=== PATIENT | male | born 1955 | race Caucasian/White ===

== ENCOUNTER → 2017-02-10 | Emergency (ER) | payer BC, SELFPAY | PROVIDERS: Emergency Provider Emergency Medicine; Family Provider Family Medicine; Visit Provider Emergency Medicine | DX: N20.1 Calculus of ureter (principal); Z87.442 Personal history of urinary calculi; I10 Essential (primary) hypertension; E78.5 Hyperlipidemia, unspecified; Z79.899 Other long term (current) drug therapy | CPT/HCPCS: 74176; 80053; 82150; 83690; 85025; 96361; 96365; 96366; 96375; 99285; J2405 ==

== ENCOUNTER 2018-07-12 09:19 | Emergency (ER) | payer BC, SELFPAY ==
[2018-07-12 09:40] VITALS: BP 126/76; PULSE 65; RESP 20; TEMP 36.6; O2SAT 99; BMI 32.7
--- NOTE | 2018-07-12 09:41 | XR_ITS ---
XR chest 2V HISTORY: ITS.REASON: chest congestion ORDERING PHYSICIAN: Lesa Truong APRN PATIENT AGE: 62 years COMPARISON: Portable upright chest 06/27/2012 FINDINGS: The cardiomediastinal silhouette and pulmonary vascularity are within normal limits. The lungs are clear without infiltrates, suspicious nodules, or pleural effusions. No acute bony abnormalities. There are mild degenerative changes mid thoracic spine. IMPRESSION: Negative chest, no acute finding
--- NOTE | 2018-07-12 10:11 | HMH.EDUTC ---
[facility] [place] Disposition Clinical Impression: Sinusitis Qualifiers: Sinusitis location: unspecified location Chronicity: unspecified Qualified Code(s): J32.9 - Chronic sinusitis, unspecified Disposition: Home, Self-Care Condition on Discharge: Good Instructions: Sinusitis, Sinus Headache, DI for Sinusitis, DI for Cough -- Adult, Cough, Cough (Alternative Therapy) Additional Instructions: *Monitor Temp, Over the counter Motrin or Tylenol as directed/as needed Tylenol every 4 hours and Motrin every 6 hours (as long as your family doctor has told you that you can take it) for fever or pain. and straight to ER if unable to lower temp less than 101.0 after medication given *Warm salt water gargles may help to soothe the throat *Throat Lozenges *Warm fluids *Sleep elevated *Humidifier/Vaporizer *Flonase 2 sprays in each nostril daily but be aware that it may take 2-3 days before you notice improvement Take medication as prescribed Over the counter Delsym may help with cough however take at night so you can sleep Your throat swab was sent for culture. Those results are typically sent to your primary care. Be sure to follow up in 2-3 days with your family doctor/primary care physician if no improvement so they can review those result and treat if necessary. If you don?t have a primary care doctor, I recommend you get one but in the mean time, you will have to return to a walk in clinic Follow up IMMEDIATELY for new or worsening symptoms or no Noticeable improvement over the next 48-72 hours. 911 for difficulty breathing or swallowing Prescriptions: Amoxicillin/Potassium Clav [Augmentin 875-125 Tablet] 1 tab PO Q12H 7 Days #14 tab Fluticasone Propionate [Flonase 50mcg nasal spray 16gm] 2 spr NS DAILY #1 bottle Referrals: Lalo España MD [Primary Care Provider] - Medical Decision Making - Rogelio Inquiry Pt receiving controlled substance: No Rogelio was queried for this patient: No Vital Signs: 07/12/18 09:40 Temperature 97.9 F Temperature Source Oral Pulse Rate [Left Apical] 65 Respiratory Rate 20 Blood Pressure [Right Arm] 126/76 Blood Pressure Mean [Right Arm] 92 02 Sat by Pulse Oximetry 99 - Lab Data Lab results reviewed: Yes: I reviewed the patient's lab results. Lab Results 07/12/18 10:11: Strep Scn Rapid Clinic Negative Orders (Tests/Meds): ED MEDICATIONS Discontinued Medications Generic Name Dose Route Start Last Admin Trade Name Rashel PRN Reason Stop Dose Admin Albuterol/Ipratropium 3 ml 07/12/18 09:44 07/12/18 09:48 Duoneb 3ml Neb IH 07/12/18 09:45 3 ml ONCE ONE Administration ORDERS Category Date Time Status CXR 2 view (NOT portable) [XR chest 2V] Stat Exams 07/12/18 09:41 Taken Strep Screen Confirmation Stat Micro 07/12/18 10:11 Received - Radiology Data #1 Image(s): Chest Image Reviewed: Yes I reviewed the patient's radiology image w/the ED provider negative chest - Reevaluation(s) Time: : Reevaluation #1: Called Radiology advised that they was aware of xray still awaiting patient to go to xray [facility] [place] HPI - General Stated complaint: Congestion Time Seen by Provider: 07/12/18 10:11 Mode of Arrival: Ambulatory Source of Information: Patient Limitations: No Limitations Description of Symptoms (Recalled from Triage Doc. by RN): pt c/o upper resp infection for 5 weeks. pt has seen primary care and has been on azithro and prednisone. HEENT Symptoms (Recalled from RN notes): No Resp Symptoms (Recalled from RN notes): Yes Skin Symptoms (Recalled from RN notes): No MS Symptoms (Recalled from RN notes): No Functional Status (Recalled from RN notes): n/a - History of Present Illness Provider Complaint: Patient state that he has been having sinus pain and pressure along with nasal congestion, cough and sore throat for about 5 weeks State that he seen family doctor and was diagnosed with URI and given Tessalone Perrles, Azithromycin and Prednisone State that
--- NOTE | 2018-07-12 10:14 | ED_ITS ---
[facility] [place] Impression: Sinusitis Qualifiers: Sinusitis location: unspecified location Chronicity: unspecified Qualified Code(s): J32.9 - Chronic sinusitis, unspecified Disposition: Home, Self-Care Condition on Discharge: Good Instructions: Sinusitis, Sinus Headache, DI for Sinusitis, DI for Cough -- Adult, Cough, Cough (Alternative Therapy) Additional Instructions: *Monitor Temp, Over the counter Motrin or Tylenol as directed/as needed Tylenol every 4 hours and Motrin every 6 hours (as long as your family doctor has told you that you can take it) for fever or pain. and straight to ER if unable to lower temp less than 101.0 after medication given *Warm salt water gargles may help to soothe the throat *Throat Lozenges *Warm fluids *Sleep elevated *Humidifier/Vaporizer *Flonase 2 sprays in each nostril daily but be aware that it may take 2-3 days before you notice improvement Take medication as prescribed Over the counter Delsym may help with cough however take at night so you can sleep Your throat swab was sent for culture. Those results are typically sent to your primary care. Be sure to follow up in 2-3 days with your family doctor/primary care physician if no improvement so they can review those result and treat if necessary. If you don?t have a primary care doctor, I recommend you get one but in the mean time, you will have to return to a walk in clinic Follow up IMMEDIATELY for new or worsening symptoms or no Noticeable improvement over the next 48-72 hours. 911 for difficulty breathing or swallowing Prescriptions: Amoxicillin/Potassium Clav [Augmentin 875-125 Tablet] 1 tab PO Q12H 7 Days #14 tab Fluticasone Propionate [Flonase 50mcg nasal spray 16gm] 2 spr NS DAILY #1 bottle Referrals: Lalo España MD [Primary Care Provider] - Medical Decision Making - Rogelio Inquiry Pt receiving controlled substance: No Rogelio was queried for this patient: No Vital Signs: 07/12/18 09:40 Temperature 97.9 F Temperature Source Oral Pulse Rate [Left Apical] 65 Respiratory Rate 20 Blood Pressure [Right Arm] 126/76 Blood Pressure Mean [Right Arm] 92 02 Sat by Pulse Oximetry 99 - Lab Data Lab results reviewed: Yes: I reviewed the patient's lab results. Lab Results 07/12/18 10:11: Strep Scn Rapid Clinic Negative Orders (Tests/Meds): ED MEDICATIONS Discontinued Medications Generic Name Dose Route Start Last Admin Trade Name Rashel PRN Reason Stop Dose Admin Albuterol/Ipratropium 3 ml 07/12/18 09:44 07/12/18 09:48 Duoneb 3ml Neb IH 07/12/18 09:45 3 ml ONCE ONE Administration ORDERS Category Date Time Status CXR 2 view (NOT portable) [XR chest 2V] Stat Exams 07/12/18 09:41 Taken Strep Screen Confirmation Stat Micro 07/12/18 10:11 Received - Radiology Data #1 Image(s): Chest Image Reviewed: Yes I reviewed the patient's radiology image w/the ED provider negative chest - Reevaluation(s) Time: 10:27 Reevaluation #1: Called Radiology advised that they was aware of xray still awaiting patient to go to xray [facility] [place] - General Stated complaint: Congestion Time Seen by Provider: 07/12/18 10:11 Mode of Arrival: Ambulatory Source of Information:
--- NOTE | 2018-07-12 10:19 | PC.NURSE ---
RAD NOTIFIED ABOUT X RAY AT THIS TIME
[2018-07-12 10:30] LABS: UTC Strep Screen (Rapid) Negative (Negative)
[2018-07-12 11:03] VITALS: BP 126/66; PULSE 65; RESP 18; TEMP 36.6; O2SAT 100
== END 2018-07-12 11:04 | disposition home or self-care (01) ==
PROVIDERS: Emergency Provider Nurse Practitioner; PCP Family Medicine
DX: J32.9 Chronic sinusitis, unspecified (principal)
CPT/HCPCS: 71046; 87880; 99202

== ENCOUNTER → 2018-09-10 14:12 | Outpatient (CLI) | payer BC, SELFPAY ==
--- NOTE | 2018-09-10 14:26 | US_ITS ---
US abdomen limited History: Ordering Physician:Symone Roberto APRN Patient Age: 62 years Comparison:None Findings: Common bile duct is normal measuring 2.3 mm. There is diffuse increased echogenicity throughout the liver without focal adenopathy. AP diameter of the right hepatic lobe is 16 cm. Visualized portions of the right kidney appear normal. Pancreas and IVC are obscured because of the bowel gas. Gallbladder is contracted however there is no definite shadowing echogenic foci or pericholecystic fluid. Impression: Contracted gallbladder without definite stone or inflammation. Hepatic steatosis.
== END ==
PROVIDERS: PCP Nurse Practitioner Family; Visit Provider Nurse Practitioner Family
DX: R10.11 Right upper quadrant pain (principal); R11.0 Nausea
CPT/HCPCS: 76705

== ENCOUNTER → 2018-09-13 11:12 | Outpatient (CLI) | payer BC, SELFPAY ==
[2018-09-13 11:27] LABS: Basophils # 0.1 K/mm3 (0-0.2); Eosinophils # 0.1 K/mm3 (0.0-0.4); Eosinophils % 1.5 % (0.1-12.0); Hematocrit 44.6 % (42.0-52.0); Hemoglobin 14.5 g/dL (14.1-18.0); Lymphocytes # 1.9 K/mm3 (0.7-4.5); Lymphocytes % 28.6 % (10-50); Mean Corpuscular HGB Conc 32.4 g/dL (31.8-35.4); Mean Corpuscular Hemoglobin 31.2 pg (27.0-31.2); Mean Corpuscular Volume 96.1 fl (80-94); Mean Platelet Volume 7.4 fl (7.4-10.4); Monocytes # 0.4 K/mm3 (0.1-1.0); Monocytes % 5.5 % (1.7-9.3); Neutrophils # 4.1 K/mm3 (1.8-7.8); Neutrophils % 63.4 % (37.0-80.0); Platelet Count 305 K/mm3 (142-424); Red Blood Count 4.64 M/mm3 (4.60-6.20); White Blood Count 6.5 K/mm3 (4.8-10.8)
[2018-09-13 11:53] LABS: Alanine Aminotransferase 40 U/L (12-78); Albumin Level 4.1 gm/dL (3.4-5.0); Albumin/Globulin Ratio 1.2 (1.1-1.8); Alkaline Phosphatase 107 U/L (46-116); Anion Gap 11.5 mEq/L (5-15); Aspartate Amino Transferase 24 U/L (15-37); Bilirubin,Total 0.5 mg/dL (0.2-1.0); Blood Urea Nitrogen 17 mg/dL (7-18); Carbon Dioxide 30 mmol/L (21.0-32.0); Chloride 106 mmol/L (98-107); Creatinine,Serum 0.96 mg/dL (0.70-1.30); Estimated Glomerular Filt Rate 79 ml/min (>60); GFR (African American) 95 ML/MIN (>60); Globulin 3.3 gm/dl (1.3-3.2); Glucose 108 mg/dL (74-106); Potassium 4.5 mmoL/L (3.5-5.1); Sodium 143 mmol/L (136-145); Total Protein,Serum 7.4 gm/dL (6.4-8.2)
== END ==
PROVIDERS: Visit Provider Surgery
DX: K81.1 Chronic cholecystitis (principal)
CPT/HCPCS: 36415; 80053; 85025; 93005

== ENCOUNTER → 2020-02-08 13:34 | Outpatient (CLI) | payer MEDICARE, SELFPAY ==
--- NOTE | 2020-02-08 13:39 | XR_ITS ---
PROCEDURE: XR SHOULDER LT MIN 2V CLINICAL INDICATION: LT shoulder Pain COMPARISON: No exams were available for comparison FINDINGS: No fracture or dislocation. No lytic or blastic change. There is normal mineralization. There are mild osteoarthritic changes of the glenohumeral joint and acromioclavicular joint. Other findings:None. IMPRESSION: Mild osteoarthritis Dictated by: Casper Reilly MD 02/08/2020 14:50 Casper Reilly MD in [place] 02/08/2020 14:50
== END ==
PROVIDERS: PCP Family Medicine; Visit Provider Orthopaedic Surgery
DX: M25.512 Pain in left shoulder (principal)
CPT/HCPCS: 73030

== ENCOUNTER → 2020-02-18 08:50 | Outpatient (CLI) | payer MEDICARE, SELFPAY ==
--- NOTE | 2020-02-18 08:51 | MR_ITS ---
PROCEDURE: MR SHOULDER LT WO CON CLINICAL INDICATION: left shoulder pain Left shoulder pain, limited range of motion COMPARISON: CR XR SHOULDER LT MIN 2V from 02/08/2020 TECHNIQUE: Routine multiplanar multi echo sequences are performed without gadolinium enhancement. FINDINGS: This exam is submitted to [facility] for interpretation 03/01/2020. There is acromioclavicular hypertrophy with subacromial stenosis. There is diffuse thickening the supraspinatus tendon consistent with tendinopathy/tendinosis. There is a suspected partial tear along superior surface of the supraspinatus tendon. There is mild thickening of the infraspinatus tendon with a small linear area of increased T2 signal distally at its insertion on the greater tuberosity. Tendinopathy/tendinosis also noted of the subscapularis tendon. Teres minor tendon has an unremarkable appearance. No obvious labral tear. Bicipital tendon is in place with a small amount fluid in the bicipital tendon sheath. There is focal increased T2 signal involving the greater tuberosity consistent with bone marrow edema from suspected inflammatory change. There is a small amount fluid in sub acromial region. IMPRESSION: 1. Tendinopathy/tendinosis of the supraspinatus and infraspinatus tendons with partial tear suspected. Complete tears with tendon retraction not apparent. 2. Osteoarthritic changes of the AC joint with mild subacromial stenosis. 3. Fluid present within the bicipital tendon sheath suggesting tenosynovitis with some edema within the greater tuberosity of the humerus. Dictated by: Casper Reilly MD 03/01/2020 14:41 Casper Reilly MD in [place] 03/01/2020 14:41
== END ==
PROVIDERS: PCP Family Medicine; Visit Provider Orthopaedic Surgery
DX: M25.512 Pain in left shoulder (principal)
CPT/HCPCS: 73221

== ENCOUNTER 2020-03-13 11:00 | Outpatient (RCR) | payer MEDICARE, SELFPAY ==
--- NOTE | 2020-03-06 15:00 | HMH.PTOPEV ---
PT Outpatient Evaluation Rehab PT Outpatient Evaluation Start: 03/06/20 14:09 Freq: Status: Active Protocol: Document 03/06/20 14:42 DOMINIQUE (Rec: 03/06/20 15:00 IMMANUELARISROC [id number]) Electronically Signed By Holland Hernández, PT 03/06/20 14:42 Outpatient Therapy Subjective History Subjective History Patient is a 64 year old male presenting to outpatient PT with reports of L shoulder pain starting approximatley 5 months ago. Most recent imaging indicates L partial tears to Infra/supspinatus mm. Patient reports that injury may be resultant of golfing injury. Patient repots intermittent LUE radicular symptoms. Comorbidities include hx of CT x 2, HTN, HL, hypothyroidism, Gout, Cholecystectomy, R RCR. Chief Complaint Pain,Stiff,Paresthesia, Weakness Symptom Type Throb Symptoms Aggravated By Physical Activity,Lifting Prior Functional Limitations None Current Functional Limitations Reaching,Lifting,Housework, Dressing,Sleeping,Recreation Activity Symptom Description Constant but Variable Level of pain today (0-10) 7 Pain scale - at its best (0-10) 2 Pain scale - at its worst (0-10) 9 Shoulder/Elbow Eval Shoulder Objective Measurements Palpation Tenderness tenderness shoulder exam standard left tenderness over the bicipital tendon left shoulder exam standard tenderness over the SA bursa shoulder left exam standard Shoulder Palpation Findings Tenderness Shoulder Palpation Overall Comment posterior cuff 3/4 Posture Shoulder Posture Sitting Position (L) Forward,(R) Forward Shoulder Posture Standing Position (L) Forward,(R) Forward Flexibilty Deficits Pectoralis Minor Muscle Length (R) Mild Tightness,(L) Mild Tightness Upper Trapezius Muscle Length (R) Mild Tightness,(L) Mild Tightness Levaetor Scapulae Muscle Length (R) Mild Tightness,(L) Mild Tightness Shoulder ROM Left Shoulder Abduction Active Range of 115 Motion (degrees) Shoulder Abduction Passive Range of 120 Motion (degrees) Shoulder Flexion Active Range of Motion 132 (degrees) Query Text: Shoulder Flexion Passive Range of Motion 138 (degrees) S
== END 2020-03-13 11:05 | disposition home or self-care (01) ==
LOC: PT 11:00
PROVIDERS: PCP Family Medicine; Visit Provider Orthopaedic Surgery
DX: M75.112 Incomplete rotator cuff tear or rupture of left shoulder, not specified as traumatic (principal)
CPT/HCPCS: 97010; 97014; 97033; 97110; 97163; G0283

== ENCOUNTER → 2020-06-04 08:29 | Outpatient (CLI) | payer MEDICARE, SELFPAY ==
[2020-06-04 09:50] LABS: Coronavirus 19 IgG Antibody Negative (Negative); Coronavirus 19 IgM Antibody Negative (Negative)
== END ==
PROVIDERS: Visit Provider Surgery
DX: Z01.812 Encounter for preprocedural laboratory examination (principal); Z11.52 Encounter for screening for COVID-19; Z12.11 Encounter for screening for malignant neoplasm of colon
CPT/HCPCS: 36415; 86328

== ENCOUNTER 2020-06-06 08:16 | Day surgery (SDC) | payer MEDICARE, SELFPAY ==
[2020-06-05 10:37] VITALS: BMI 30.9
[2020-06-06 09:01] VITALS: BP 123/78; PULSE 63; RESP 22; TEMP 36.2; O2SAT 99
--- NOTE | 2020-06-06 10:07 | P.PN_ITS ---
[facility] Anesthesia Checklist - Patient Identification Patient Identification: Arm Band - Structural Data Admitted From: Home Planned Operative Procedure/s: colonoscopy Consent for Planned Operative Procedure(s) Verified: Yes Verified Documents: Surgical Consent, History and Physical - NPO Status Verified Time NPO: 00:00 - Additional verifications Anesthesia Reactions: No Hx Blood Transfusions: No Blood Transfusion Reaction: No - Airway Assessment C-Spine Mobility Assessed: Yes (mp2) TMJ Mobility Assessed: Yes Dentition: Good Dentition - Neurological Assessment Level of Consciousness: Awake, Alert - Anesthesia Plan Anesthesia Risk discussed: Yes Anesthesia Plan: Verified ASA Class: II Anesthesia Type: MAC [facility] History I have reviewed the patient's past medical history: Yes Medical History: Reports:: Coronary Artery Disease, Gall Bladder Disease, Gastroesophageal Reflux Disease(GERD), Hyperlipidemia, Hypertension Denies:: Cancer, Diabetes Mellitus Type 1, Diabetes Mellitus Type 2, Internal Pacemaker, MRSA, Seizures *Have you ever received a pneumonia vaccine?: No *Have you received a flu vaccine this season?: No Other Medical History: Reports: Thyroid Disease. Denies: Blood Transfusion Reaction Anesthesia experience/problems:: nac Laterality Cases: Right: Arthroscopy Shoulder Other Surgeries: Yes: Cardiac Catheterization, Colonoscopy, EGD, Thyroidectomy, Other. No: Pacemaker Amputation: No Fractures: No - *Social History Last grade of school completed: Some college Smoking Status: Current every day smoker Tobacco Type: cigars # Packs/Day (cigarettes): 1 Alcohol Intake: current Alcohol Intake Frequency:: a few times a week Substance Use Type: denies use *Occupational Status:: employed Housing: house Household Members: spouse *Travel in the last 8 weeks: None Family Hx:: No significant family history
[2020-06-06 10:21] VITALS: BP 92/59; PULSE 59; RESP 14; TEMP 36.9; O2SAT 95
--- NOTE | 2020-06-06 10:22 | HMH.SCOPE ---
- Procedure: Date: 06/06/20 Patient Date of :: 1955 Procedure Performed:: Total colonoscopy with polypectomy using biopsy forceps and snare Indications:: Patient is a 64-year-old male who I have performed screening colonoscopy on 5 years ago on 03/13/2015. He was found to have diverticulosis and had a polyp removed from the descending colon. I had recommended 5-year follow-up. He is without complaints. Of note, he did previously undergo colonoscopy about 15 years ago or more at [facility]. Performing Provider:: Darryl Tabor MD Referring Provider:: Lalo España MD Sedation:: MAC sedation Procedure:: Patient was taken to endoscopy procedure room. He was positioned in lateral decubitus position. Adequate intravenous sedation was achieved with anesthesia titration of propofol. Digital examination was performed which revealed normal sphincter tone. He did have a uniformly enlarged prostate. Variable stiffness Olympus colonoscope was inserted via the anus. It was advanced to the cecum. Ileocecal valve and appendiceal orifice were identified. Colonic preparation was fair as there was some particulate stool and undigested vegetable matter within the colon. However, decent visualization was achieved with thorough irrigation and suctioning. Colonoscope was withdrawn through the colon with careful surveillance. In the proximal transverse colon there was a small adenomatous appearing polyp removed with cold cutting snare. In the sigmoid colon there was moderate diverticulosis with several large mouth diverticuli. At the rectosigmoid region there was a couple of hyperplastic appearing polyps which were removed with cold biopsy forceps. Retroflexion within the rectum revealed no evidence of any pathologic internal hemorrhoids. Colonoscope was withdrawn. Findings:: Fair colonic preparation Sigmoid diverticulosis Adenomatous appearing proximal transverse polyp Hyperplastic appearing rectosigmoid polyps Recommendations:: Likely repeat colonoscopy 3 years given the adenomatous polyp and suboptimal preparation along with previous history of polyps Complications:: None immediately apparent Estimated blood obtained (mL): 1
[2020-06-06 10:31] VITALS: BP 110/74; PULSE 69; RESP 16; TEMP 36.9; O2SAT 97
[2020-06-06 10:41] VITALS: BP 110/70; PULSE 66; RESP 16; TEMP 36.9; O2SAT 99
[2020-06-06 10:51] VITALS: BP 112/68; PULSE 68; RESP 14; TEMP 36.9; O2SAT 99
== END 2020-06-06 10:55 | disposition home or self-care (01) ==
LOC: OUTP 08:17
PROVIDERS: PCP Family Medicine; Visit Provider Surgery
PROC: 0DJD8ZZ Inspection of Lower Intestinal Tract, Via Natural or Artificial Opening Endoscopic (ICD-10-PCS; principal; 2020-06-06 09:30)
DX: Z12.11 Encounter for screening for malignant neoplasm of colon (principal); Z86.010 Personal history of colon polyps; Z87.19 Personal history of other diseases of the digestive system; K57.30 Diverticulosis of large intestine without perforation or abscess without bleeding; K63.5 Polyp of colon; I25.10 Atherosclerotic heart disease of native coronary artery without angina pectoris; K82.9 Disease of gallbladder, unspecified; K21.9 Gastro-esophageal reflux disease without esophagitis; E78.5 Hyperlipidemia, unspecified; I10 Essential (primary) hypertension; Z87.39 Personal history of other diseases of the musculoskeletal system and connective tissue; Z72.0 Tobacco use
CPT/HCPCS: 45380; 45385; 88305

== ENCOUNTER 2020-07-29 02:04 | Observation (INO) | payer MEDICARE, SELFPAY ==
[2020-07-29] VITALS (11 sets, daily range): BP systolic 100–151; BP diastolic 60–96; PULSE 58–78; RESP 16–20; TEMP 36.6–36.9; O2SAT 95–99; BMI 31.4; BMI 32.0
--- NOTE | 2020-07-29 02:22 | CT_ITS ---
PROCEDURE INFORMATION: Exam: CT Abdomen And Pelvis Without Contrast Exam date and time: 07/29/2020 2:22 AM Age: 64 years old Clinical indication: Abdominal pain; Prior surgery; Surgery date: 6+ months; Surgery type: Cystos; Patient HX: Right flank pain, HX of multiple kidney stones; Additional info: RT flank pain TECHNIQUE: Imaging protocol: Computed tomography of the abdomen and pelvis without contrast. Radiation optimization: All CT scans at this facility use at least one of these dose optimization techniques: automated exposure control; mA and/or kV adjustment per patient size (includes targeted exams where dose is matched to clinical indication); or iterative reconstruction. COMPARISON: CT ABDOMEN PELVIS WO CON 12/26/2018 2:23 PM FINDINGS: Liver: There is diffuse hypoattenuation of the liver compatible with mild hepatic steatosis. Gallbladder and bile ducts: There are surgical clips within the gallbladder fossa. Pancreas: Normal. No ductal dilation. Spleen: Normal. No splenomegaly. Adrenal glands: Normal. No mass. Kidneys and ureters: Moderate right hydronephrosis and right hydroureter extends to a 6 mm right proximal ureterolith that is approximately 7.3 cm from the right renal pelvis. Nonobstructive right nephrolith measures 4 mm and is located at the superior pole of the right kidney multiple 2 mm nephrolith seen bilaterally. Stomach and bowel: Diverticula are scattered throughout the colon without inflammatory changes. Appendix: No evidence of appendicitis. Intraperitoneal space: Unremarkable. No free air. No significant fluid collection. Vasculature: Moderate calcific atherosclerotic disease of the abdominal aorta without aneurysmal dilatation is present. Lymph nodes: Unremarkable. No enlarged lymph nodes. Urinary bladder: Unremarkable as visualized. Reproductive: Unremarkable as visualized. Bones/joints: Multilevel discogenic degenerative changes of the lumbar spine greatest at L5-S1. No acute fracture. Soft tissues: Normal. IMPRESSION: Moderate right hydronephrosis and right hydroureter extends to a 6 mm right proximal ureterolith that is approximately 7.3 cm from the right renal pelvis.
[2020-07-29 02:28] LABS: Basophils # 0.1 K/mm3 (0-0.2); Basophils % 1.2 % (0.1-2.0); Eosinophils # 0.2 K/mm3 (0.0-0.4); Hematocrit 42.6 % (42.0-52.0); Hemoglobin 14.5 g/dL (14.1-18.0); Lymphocytes # 3.3 K/mm3 (0.7-4.5); Lymphocytes % 29.3 % (10-50); Mean Corpuscular HGB Conc 33.9 g/dL (31.8-35.4); Mean Corpuscular Hemoglobin 31.6 pg (27.0-31.2); Mean Corpuscular Volume 93.1 fl (80-94); Mean Platelet Volume 7.8 fl (7.4-10.4); Monocytes % 8.9 % (1.7-9.3); Neutrophils # 6.6 K/mm3 (1.8-7.8); Neutrophils % 58.7 % (37.0-80.0); Platelet Count 292 K/mm3 (142-424); Red Blood Count 4.57 M/mm3 (4.60-6.20); Red Cell Distribution Width 13.4 % (11.5-17.5); White Blood Count 11.2 K/mm3 (4.8-10.8)
[2020-07-29 02:35] LABS: Alanine Aminotransferase 36 U/L (12-78); Albumin Level 4.8 g/dl (3.5-5.0); Albumin/Globulin Ratio 1.7 (1.1-1.8); Alkaline Phosphatase 124 U/L (38-126); Anion Gap 13.1 mEq/L (5-15); Aspartate Amino Transferase 36 U/L (17-59); Bilirubin,Total 0.5 mg/dl (0.2-1.3); Blood Urea Nitrogen 37 mg/dl (9-20); Calcium 9.5 mg/dl (8.4-10.2); Carbon Dioxide 27 mmol/L (22.0-30.0); Chloride 101 mmol/L (98-107); Creatinine Clearance Estimated 74 mL/min (50-200); Estimated Glomerular Filt Rate 47 ml/min (>60); GFR (African American) 57 ML/MIN (>60); Globulin 2.9 g/dL (1.3-3.2); Glucose 117 mg/dl (74-100); Potassium 4.1 mmoL/L (3.5-5.1); Sodium 137 mmol/L (136-145); Total Protein,Serum 7.7 g/dl (6.3-8.2)
[2020-07-29 02:40] LABS: C-Reactive Protein 4.9 mg/L (0-4)
--- NOTE | 2020-07-29 02:52 | HMH.EDNVD ---
ED Disposition Clinical Impression: Renal colic on right side Disposition: Admitted as Observation Condition on Discharge: Fair Instructions: DI for Acute Abdominal Pain Referrals: Lalo España MD [Primary Care Provider] - - Critical Care Critical Care Time: No Attestation: On 07/29/20, the high probability of a clinically significant, sudden or life threatening deterioration of the following system(s) required my full and direct attention, intervention and personal management. The time I documented below is in addition to time spent performing reported procedures but includes the following listed in this critical care notation. Medical Decision Making - Medical Records Medical records reviewed: Yes: I reviewed the patient's medical records. - Rogelio Inquiry Pt receiving controlled substance: No Vital Signs: 07/29/20 02:05 07/29/20 02:49 07/29/20 03:00 Temperature 98.4 F Temperature Source Oral Pulse Rate 77 70 Pulse Rate [Right] 78 Respiratory Rate 20 Blood Pressure 112/66 132/96 H Blood Pressure [Right Arm] 151/96 H Blood Pressure Mean 81 108 Blood Pressure Mean [Right Arm] 114 02 Sat by Pulse Oximetry 97 98 99 07/29/20 03:30 Temperature Temperature Source Pulse Rate 74 Pulse Rate [Right] Respiratory Rate Blood Pressure 106/60 L Blood Pressure [Right Arm] Blood Pressure Mean 75 Blood Pressure Mean [Right Arm] 02 Sat by Pulse Oximetry 95 - Lab Data Lab results reviewed: Yes: I reviewed the patient's lab results. Lab Results 07/29/20 02:14: WBC 11.2 H, RBC 4.57 L, Hgb 14.5, Hct 42.6, MCV 93.1, MCH 31.6 H, MCHC 33.9, RDW 13.4, Plt Count 292, MPV 7.8, Neut % (Auto) 58.7, Lymph % (Auto) 29.3, Hoke % (Auto) 8.9, Eos % (Auto) 2.0, Baso % (Auto) 1.2, Neut # (Auto) 6.6, Lymph # (Auto) 3.3, Hoke # (Auto) 1.0, Eos # (Auto) 0.2, Baso # (Auto) 0.1, ESR 20 07/29/20 02:14: Sodium 137, Potassium 4.1, Chloride 101, Carbon Dioxide 27, Anion Gap 13.1, BUN 37 H, Creatinine 1.50 H, Estimated Creat Clear 74, Estimated GFR 47 L, Est GFR ( Amer) 57 L, Glucose 117 H, Calcium 9.5, Total Bilirubin 0.5, AST 36, ALT 36, Alkaline Phosphatase 124, C-Reactive Protein 4.9 H, Total Protein 7.7, Albumin 4.8, Globulin 2.9, Albumin/Globulin Ratio 1.7 07/29/20 02:14: Procalcitonin 0.070 07/29/20 03:10: Urine Color Yellow, Urine Appearance Sl cloudy, Urine pH 5.5, Ur Specific Harwood 1.025, Urine Protein Negative, Urine Glucose (UA) Negative, Urine Ketones Negative, Urine Blood 3+, Urine Nitrate Negative, Urine Bilirubin Negative, Urine Urobilinogen 0.2, Ur Leukocyte Esterase Negative, Urine RBC 50-100, Urine WBC Occasional, Ur Squamous Epith Cells Occasional, Urine Bacteria Trace, Urine Mucus 1+ Result diagrams: 07/29/20 02:14 07/29/20 02:14 Orders (Tests/Meds): ED MEDICATIONS Generic Name Dose Route Start Last Admin Trade Name Freq PRN Reason Stop Dose Admin Sodium Chloride 1,000 mls @ 999 mls/hr 07/29/20 02:30 07/29/20 02:27 Sod Chlor 0.9% 1000ml Bag IV 07/29/20 03:30 999 mls/hr .Q1H1M JANIA Administration Discontinued Medications Generic Name Dose Route Start Last Admin Trade Name Freq PRN Reason Stop Dose Admin Ketorolac Tromethamine 30 mg 07/29/20 02:23 07/29/20 02:26 Ketorolac 30mg/Ml Vial IV 07/29/20 02:24 30 mg ONCE ONE Administration Morphine Sulfate 4 mg 07/29/20 03:06 07/29/20 03:19 Morphine 4mg/Ml Syringe IV 07/29/20 03:07 4 mg ONCE ONE Administration Ondansetron HCl 4 mg 07/29/20 02:23 07/29/20 02:26 Ondansetron 4mg/2ml Vial IV 07/29/20 02:24 4 mg ONCE ONE Administration Promethazine HCl 25 mg 07/29/20 03:06 07/29/20 03:19 Promethazine Hcl 25mg/Ml 1ml Vial IV 07/29/20 03:07 25 mg ONCE ONE Administration Sodium Chloride 25 ml 07/29/20 03:06 Sodium Chloride 0.9% 25ml Bag IV 07/29/20 03:07 ONCE ONE ORDERS Category Date Time Status Rapid PCR Covid and Flu A/B Stat Lab 07/29/20 04:06 Ordered
[2020-07-29 03:12] LABS: Erythrocyte Sedimentation Rate 20 mm/hr (0-20)
[2020-07-29 03:18] LABS: Microscopic, Urine URINE MICROSCOPIC (MICROSCOPIC)
[2020-07-29 03:19] LABS: Appearance,Urine SL CLOUDY (Clear); Bilirubin,Urine Negative (Negative); Blood, Urine 3+ (Negative); Color,Urine YELLOW (Yellow); Glucose,Urine (UA) Negative (Negative); Ketones,Urine Negative (Negative); Leukocyte Esterase,Urine Negative (Negative); Nitrate,Urine Negative (Negative); PH,Urine 5.5 (5.0-8.5); Protein,Urine Negative (Negative); Specific Gravity, Urine 1.025 (1.005-1.030); Urobilinogen,Urine 0.2 EU/dl (0.2)
[2020-07-29 03:29] LABS: Bacteria,Urine Trace /lpf; Mucus,Urine 1+ /lpf; RBC,Urine 50-100 #/hpf (0-3); Squamous Epithelial Cell,Urine Occasional #/hpf (0-5); WBC,Urine Occasional #/hpf (0-3)
[2020-07-29 04:16] LABS: Coronavirus 19, PCR Not Detected (NotDetected); Influenza A, PCR Not Detected (NotDetected); Influenza B, PCR Not Detected (NotDetected)
--- NOTE | 2020-07-29 04:46 | PC.NURSE ---
patient up to floor via wheelchair.
[2020-07-29 05:00] LABS: Uric Acid 6.7 mg/dl (3.5-8.5)
--- NOTE | 2020-07-29 07:07 | HMH.HP ---
*Admission Date: 07/29/20 *Chief complaint: Right flank pain *History of present illness: 64-year-old male with history of kidney stones presented to the emergency department after sudden increase in right flank pain with associated nausea and vomiting. Symptoms increased around midnight. Patient was brought to the emergency department and diagnosed with a 6 mm proximal obstructing right ureteral stone with early hydronephrosis. Patient had incessant vomiting and pain that required IV medications. Patient was started on IV fluids, pain was brought under control with IV narcotics and patient has been admitted for observation and urology consultation. At present patient reports pain is tolerable although he does feel like pain is increasing this morning. Patient reports right flank symptoms have been present for approximately a week and he believes he may have passed some smaller stones. He denies gross hematuria or fevers. He has had chills throughout the week. He denies any URI symptoms [facility] History I have reviewed the patient's past medical history: Yes Medical History: Reports:: Coronary Artery Disease, Gall Bladder Disease, Gastroesophageal Reflux Disease(GERD), Hyperlipidemia, Hypertension, Myocardial Infarction (x2) Denies:: Cancer, Diabetes Mellitus Type 1, Diabetes Mellitus Type 2, Internal Pacemaker, MRSA, Seizures *Have you ever received a pneumonia vaccine?: No *Have you received a flu vaccine this season?: No Other Medical History: Reports: Arthritis, Thyroid Disease (thyroid CA). Denies: Blood Transfusion Reaction Laterality Cases: Right: Arthroscopy Shoulder Other Surgeries: Yes: Cardiac Catheterization, Cholecystectomy, Colonoscopy, EGD, Thyroidectomy, Other. No: Pacemaker Amputation: No Fractures: No - *Social History Last grade of school completed: Some college Smoking Status: Current every day smoker Tobacco Type: cigars # Packs/Day (cigarettes): 1 Alcohol Intake: current Alcohol Intake Frequency:: holidays/special occasions only Substance Use Type: denies use *Occupational Status:: employed Housing: house Household Members: spouse *Travel in the last 8 weeks: None Family Hx:: Non-contributory Review of Systems - Constitutional Reports chills, Denies anorexia, Denies body ache(s) - Eyes Denies blurry vision - ENT Denies change in voice, Denies ear pain - *Cardiovascular Denies chest pain at rest - *Respiratory Denies change in phlegm color, Denies chest congestion - *Gastrointestinal Denies bloating - *Genitourinary Reports side pain, Reports decreased urination, Denies painful urination, Denies blood in urine, Denies penile discharge, Denies urinary frequency, Denies urinary hesitancy, Denies urinary incontinence, Denies urinary urgency - *Musculoskeletal Denies joint pain - Integumentary/Breasts Denies bleeding lesions - *Neurologic Denies localized weakness, Denies headache(s) - Psychiatric Denies anxiety - Endocrine Denies excessive sweating Meds Home Medications Medication Instructions Recorded Confirmed Type allopurinol 300 mg tablet 300 mg PO DAILY 09/13/18 07/29/20 History aspirin 81 mg tablet,delayed 81 mg PO DAILY 09/13/18 07/29/20 History release atorvastatin 10 mg tablet 10 mg PO DAILY 09/13/18 07/29/20 History levothyroxine 75 mcg tablet 75 mcg PO DAILY 09/13/18 07/29/20 History lisinopril 20 mg tablet 20 mg PO DAILY 09/13/18 07/29/20 History Allergies Allergy/AdvReac Type Severity Reaction Status Date / Time tamsulosin [From Flomax] Allergy Verified 07/29/20 02:44 Exam Vital signs and Labs for Last 24 Hours: Temp Pulse Resp BP Pulse Ox 98.1 F 64 20 100/65 L 97 07/29/20 04:59 07/29/20 04:59 07/29/20 04:59 07/29/20 04:59 07/29/20 04:59 Laboratory Results - last 24 hr 07/29/20 02:14: WBC 11.2 H, RBC 4.57 L, Hgb 14.5, Hct 42.6, MCV 93.1, MCH 31.6 H, MCHC 33.9, RDW 13.4, Plt Count 292, MPV 7.8, Neut % (Auto) 58.7, Lymph % (Auto) 2
[2020-07-29 07:14] LABS: Chloride 106 mmol/L (98-107); Potassium 4.7 mmoL/L (3.5-5.1); Sodium 137 mmol/L (136-145)
[2020-07-29 07:17] LABS: Anion Gap 12.7 mEq/L (5-15); Blood Urea Nitrogen 34 mg/dl (9-20); Carbon Dioxide 23 mmol/L (22.0-30.0); Creatinine Clearance Estimated 113 mL/min (50-200); Estimated Glomerular Filt Rate 75 ml/min (>60); GFR (African American) 90 ML/MIN (>60)
[2020-07-29 07:18] LABS: Calcium 8.6 mg/dl (8.4-10.2); Glucose 106 mg/dl (74-100)
--- NOTE | 2020-07-29 08:22 | HMH.PHAVTE ---
[facility] Pharmacy VTE Monitoring - Patient Demographics Admission date: 07/29/20 Report Date: 07/29/20 Time: 08:22 Allergies/Adverse Reactions: Patient Allergies tamsulosin [From Flomax] Allergy (Verified 07/29/20 02:44) Height: 1.85 m Weight: 110.178 kg Patient Problems: Current Active Problems Renal colic on right side (Acute) Hydronephrosis with renal and ureteral calculus obstruction (Acute) - VTE Risk Labs: VTE Related Lab Results Hgb 14.5 g/dL (14.1-18.0) 07/29/20 02:14 Hct 42.6 % (42.0-52.0) 07/29/20 02:14 Plt Count 292 K/mm3 (142-424) 07/29/20 02:14 BUN 34 mg/dl (9-20) H 07/29/20 06:40 Creatinine 1.00 mg/dl (0.66-1.25) D 07/29/20 06:40 Estimated Creat Clear 113 mL/min (50-200) 07/29/20 06:40 VTE Risk Level: Low Risk - Prophylaxis VTE Prophylaxis Ordered?: Yes Types of VTE Prophylaxis: TEDS Knee High Location of Applied Device: Bilateral Lower Extremeties
[2020-07-29 08:33] LABS: Basophils # 0.1 K/mm3 (0-0.2); Basophils % 0.9 % (0.1-2.0); Eosinophils # 0.1 K/mm3 (0.0-0.4); Eosinophils % 1.2 % (0.1-12.0); Hematocrit 39.2 % (42.0-52.0); Lymphocytes # 2.2 K/mm3 (0.7-4.5); Lymphocytes % 22.5 % (10-50); Mean Corpuscular HGB Conc 33.1 g/dL (31.8-35.4); Mean Corpuscular Hemoglobin 31.1 pg (27.0-31.2); Mean Corpuscular Volume 94.1 fl (80-94); Monocytes # 0.6 K/mm3 (0.1-1.0); Monocytes % 6.3 % (1.7-9.3); Neutrophils # 6.7 K/mm3 (1.8-7.8); Neutrophils % 69.2 % (37.0-80.0); Platelet Count 245 K/mm3 (142-424); Red Blood Count 4.17 M/mm3 (4.60-6.20); Red Cell Distribution Width 12.9 % (11.5-17.5); White Blood Count 9.7 K/mm3 (4.8-10.8)
--- NOTE | 2020-07-29 17:26 | PC.NURSE ---
Pt has been pleasant this shift. PRN pain meds administered x2 for rt flank pain. Urine remains strained, no calculi noted. Urine remains cloudy, light ofe w/ a strong odor. No other acute changes or complaints at this time. Will continue to monitor.
--- NOTE | 2020-07-30 04:17 | PC.NURSE ---
pt has had no acute changes. iv patent and infusing per order. urine being strained. no stones noted at this time. pain reported x1 this shift and prn med given with relief. call light in reach. will continue to monitor
[2020-07-30 04:59] VITALS: BP 115/76; PULSE 59; RESP 18; TEMP 36.6; O2SAT 99
--- NOTE | 2020-07-30 06:52 | P.PN_ITS ---
Internal Medicine - PN: Subj *Date: 07/30/20 *Time: 06:52 Interval history: Patient continues to have right flank pain. He is feeling nauseous this morning but believes it is partially due to the pain medication. Urine is being strained. He has not passed a stone Exam Vital signs and Labs for Last 24 Hours: Temp Pulse Resp BP Pulse Ox 98 F 59 L 18 115/76 99 07/30/20 04:59 07/30/20 04:59 07/30/20 04:59 07/30/20 04:59 07/30/20 04:59 Laboratory Results - last 24 hr 07/29/20 06:40: Sodium 137, Potassium 4.7, Chloride 106, Carbon Dioxide 23, Anion Gap 12.7, BUN 34 H, Creatinine 1.00 D, Estimated Creat Clear 113, Estimated GFR 75, Est GFR ( Amer) 90 D, Glucose 106 H, Calcium 8.6 07/29/20 07:54: WBC 9.7, RBC 4.17 L, Hgb 13.0 L D, Hct 39.2 L, MCV 94.1 H, MCH 31.1, MCHC 33.1, RDW 12.9, Plt Count 245, MPV 8.0, Neut % (Auto) 69.2, Lymph % (Auto) 22.5, [place] % (Auto) 6.3, Eos % (Auto) 1.2, Baso % (Auto) 0.9, Neut # (Auto) 6.7, Lymph # (Auto) 2.2, [place] # (Auto) 0.6, Eos # (Auto) 0.1, Baso # (Auto) 0.1 I & O for Last 24 hours: Intake & Output 07/27/20 07/28/20 07/29/20 07/30/20 11:59 11:59 11:59 11:59 Intake Total 2360 / 2360 2982 / 2982 Output Total 300 / 300 650 / 650 Balance 2059 / 2059 2332 / 2332 Weight 242 lb 14.4 oz - Constitutional no acute distress - *Routine Respiratory Exam Present: CTA bilaterally - *Routine Cardiovascular Exam Present: RRR - *Routine Abdominal Exam Present: tenderness (Right anterior mid abdomen) Assessment and Plan (1) Hydronephrosis with renal and ureteral calculus obstruction Status: Acute Category: Medical Code(s): N13.2 - Hydronephrosis with renal and ureteral calculous obstruction - Assessment and plan all Dx Assessment and Plan for all problems:: 1. Urology consultation today for intervention
--- NOTE | 2020-07-30 07:13 | HMH.DCSUM ---
General - General Admission date:: 07/29/20 Discharge date: 07/30/20 HPI HPI: 64-year-old male with history of kidney stones presented to the emergency department after sudden increase in right flank pain with associated nausea and vomiting. Symptoms increased around midnight. Patient was brought to the emergency department and diagnosed with a 6 mm proximal obstructing right ureteral stone with early hydronephrosis. Patient had incessant vomiting and pain that required IV medications. Patient was started on IV fluids, pain was brought under control with IV narcotics and patient has been admitted for observation and urology consultation. At present patient reports pain is tolerable although he does feel like pain is increasing this morning. Patient reports right flank symptoms have been present for approximately a week and he believes he may have passed some smaller stones. He denies gross hematuria or fevers. He has had chills throughout the week. He denies any URI symptoms Hospital Course Hospital Course: Patient was admitted with plan for urologic consultation and stone extraction. However it was later discovered that urology services were unavailable for the week. Patient was discharged home with pain medication and antiemetics and will follow up with his urologist which my office will assist with. Objective Vital signs: Temp Pulse Resp BP Pulse Ox 98 F 59 L 18 115/76 99 07/30/20 04:59 07/30/20 04:59 07/30/20 04:59 07/30/20 04:59 07/30/20 04:59 no acute distress - *Routine HEENT Exam Head: Present: normocephalic Eye: Present: EOMI, PERRL ENT: Present: mucous membranes moist - *Routine Neck Exam Present: supple - *Routine Respiratory Exam Present: CTA bilaterally - *Routine Cardiovascular Exam Present: RRR - *Routine Abdominal Exam Present: soft, normoactive bowel sounds. Absent: tenderness - *Routine Extremities Exam Absent: cyanosis, clubbing, edema - *Routine Skin Exam Present: warm. Absent: rash - Detailed Eye Exam Eyelids: Bilateral normal inspection Results Labs on day of discharge: Labs from last 24 hours 07/29/20 07/29/20 07:54 06:40 WBC 9.7 RBC 4.17 L Hgb 13.0 L D Hct 39.2 L MCV 94.1 H MCH 31.1 MCHC 33.1 RDW 12.9 Plt Count 245 MPV 8.0 Neut % (Auto) 69.2 Lymph % (Auto) 22.5 [place] % (Auto) 6.3 Eos % (Auto) 1.2 Baso % (Auto) 0.9 Neut # (Auto) 6.7 Lymph # (Auto) 2.2 [place] # (Auto) 0.6 Eos # (Auto) 0.1 Baso # (Auto) 0.1 Sodium 137 Potassium 4.7 Chloride 106 Carbon Dioxide 23 Anion Gap 12.7 BUN 34 H Creatinine 1.00 D Estimated Creat Clear 113 Estimated GFR 75 Est GFR ( Amer) 90 D Glucose 106 H Calcium 8.6 DS: Diagnosis - Discharge Diagnosis (1) Hydronephrosis with renal and ureteral calculus obstruction Status: Acute Discharge Plan - Patient Discharge Instructions ACTIVITY: Continue current activity DIET: continue same diet Patient Instructions: Kidney Stones -- Adult - Follow up Plan Disposition: Home, Self-Care Condition at discharge:: Stable Home Medications: Home Medications Medication Instructions Recorded Confirmed Type allopurinol 300 mg tablet 300 mg PO DAILY 09/13/18 07/29/20 History aspirin 81 mg tablet,delayed 81 mg PO DAILY 09/13/18 07/29/20 History release atorvastatin 10 mg tablet 10 mg PO DAILY 09/13/18 07/29/20 History levothyroxine 75 mcg tablet 75 mcg PO DAILY 09/13/18 07/29/20 History lisinopril 20 mg tablet 20 mg PO DAILY 09/13/18 07/29/20 History Hydrocodone/Acetaminophen 1 each PO Q4HP PRN #20 tablet 07/30/20 Rx [Hydrocodone-Acetamin 5-325 mg] Promethazine HCl [Phenergan 25mg 25 mg PO Q6H PRN #30 tab 07/30/20 Rx tab] Prescriptions/Medication Reconciliation: New Hydrocodone/Acetaminophen [Hydrocodone-Acetamin 5-325 mg] 1 each PO Q4HP PRN #20 tablet PRN Reason: Moderate To Severe P
[2020-07-30 08:00] VITALS: BP 112/75; PULSE 61; RESP 18; TEMP 36.8
== END 2020-07-30 09:32 | disposition home or self-care (01) ==
LOC: ER 04:13 → 2ND 04:50
PROVIDERS: Admitting Provider Emergency Medicine; Emergency Provider Emergency Medicine; PCP Family Medicine; Visit Provider Family Medicine
DX: N23 Unspecified renal colic (principal); N13.2 Hydronephrosis with renal and ureteral calculous obstruction; I10 Essential (primary) hypertension; E03.9 Hypothyroidism, unspecified; I25.10 Atherosclerotic heart disease of native coronary artery without angina pectoris; I25.2 Old myocardial infarction; K21.9 Gastro-esophageal reflux disease without esophagitis; F17.210 Nicotine dependence, cigarettes, uncomplicated
CPT/HCPCS: 74176; 80048; 80053; 81001; 84145; 84550; 85025; 85651; 86140; 96365; 96375; 99284; G0378; J2405; U0003

== ENCOUNTER 2020-10-11 09:00 | Outpatient (RCR) | payer MEDICARE, SELFPAY | END 2020-10-11 09:05 | disposition home or self-care (01) | LOC: PT 09:00 | PROVIDERS: PCP Family Medicine; Visit Provider Orthopaedic Surgery | DX: M54.2 Cervicalgia (principal); M25.512 Pain in left shoulder; M54.5 Low back pain; M75.42 Impingement syndrome of left shoulder | CPT/HCPCS: 20560; 97014; 97016; 97035; 97110; 97140; 97163; G0283 ==

== ENCOUNTER → 2021-06-04 10:08 | Outpatient (CLI) | payer MEDICARE, SELFPAY ==
[2021-06-04 12:05] LABS: Alanine Aminotransferase 63 U/L (12-78); Albumin Level 4.7 g/dl (3.5-5.0); Albumin/Globulin Ratio 1.8 (1.1-1.8); Alkaline Phosphatase 113 U/L (38-126); Anion Gap 9.5 mEq/L (5-15); Aspartate Amino Transferase 61 U/L (17-59); Bilirubin,Total 0.6 mg/dl (0.2-1.3); Blood Urea Nitrogen 20 mg/dl (9-20); Calcium 9.7 mg/dl (8.4-10.2); Carbon Dioxide 29 mmol/L (22.0-30.0); Chloride 105 mmol/L (98-107); Chol/HDL Ratio 2.9 (1-3.5); Cholesterol 132 mg/dl (140-200); Estimated Glomerular Filt Rate 112 ml/min (>60); GFR (African American) 136 ML/MIN (>60); Globulin 2.6 g/dL (1.3-3.2); Glucose 112 mg/dl (74-100); HDL Cholesterol 45 mg/dl (40-60); Potassium 4.5 mmoL/L (3.5-5.1); Sodium 139 mmol/L (136-145); Total Protein,Serum 7.3 g/dl (6.3-8.2); Triglycerides 177 mg/dl (30-150); VLDL Cholesterol 35 mg/dL (0-40)
[2021-06-04 12:19] LABS: Direct LDL Cholesterol 50.14 mg/dL (100-129)
[2021-06-04 12:22] LABS: Troponin I < 0.01 ng/ml (0.00-0.034)
[2021-06-04 12:36] LABS: Prostate Specific Ag Screen 1.6 ng/ml (0.0-4.0); Thyroid Stimulating Hormone 2.83 uIU/mL (0.465-4.68)
== END ==
PROVIDERS: Visit Provider Nurse Practitioner Family
DX: R07.9 Chest pain, unspecified (principal); E03.9 Hypothyroidism, unspecified; E78.00 Pure hypercholesterolemia, unspecified; I10 Essential (primary) hypertension; Z12.5 Encounter for screening for malignant neoplasm of prostate
CPT/HCPCS: 36415; 80053; 80061; 84443; 84484; G0103

== ENCOUNTER → 2021-06-12 06:20 | Outpatient (CLI) | payer MEDICARE, SELFPAY ==
--- NOTE | 2021-06-12 06:21 | NM_ITS ---
APPROVED REPORT Exam: Nuclear Stress Test Indication: CAD, H/O MS, HTN, HYPERLIPIDEMIA, TOB USE, FM HX., C.P., SOB, ABN EKG Patient Location: Outpatient Stress Tech: Melani Gatica [place] Tech:Yudith Sanchez, ARRT RT (R)(N)(M) Ht: 6 ft 1 in Wt: 250 lbs HR: 64 bpm BP: 132/87 mmHg BSA: 2.37 m2 BMI: 32.9 History: CAD, H/O MS, HTN, HYPERLIPIDEMIA, TOB USE, FM HX., C.P., SOB, ABN EKG Procedure: Patient received a 0.4 mg of intravenous Lexiscan, resting heart rate 64 bpm, resting blood pressure 132/87 mmHg, with Lexiscan maximum heart rate achived was 91 bpm which is Less than 85 % of the maximum predicted heart rate and blood pressure was 135/86 mmHg. With Lexiscan, patient denied any complaint of chest pain. SOA Electrocardiogram Resting electrocardiogram shows sinus rhythm, with Lexiscan reveals less than 1.[address] segment depression noted from the baseline EKG. The EKG portion of the Lexiscan is nondiagnostic. Cardiac Stress and Resting SPECT Images: Cardiac Stress and Resting SPECT images were obtained using technetium 99m Myoview 30.5 mCi stress and 10.36 mCi at rest. Gated SPECT for analysis of segmental wall motion and calculation of the ejection fraction also done. Prone images were also obtained. Cardiac stress and resting SPECT images show uniform myocardial activity without segmental perfusion abnormality, computer derived ejection fraction is 45% with no regional wall motion abnormality, right ventricle is normal size and contractility. Conclusion: 1. The EKG portion of the Lexiscan is nondiagnostic. 2. No scintigraphic evidence of reversible ischemia seen, computer derived ejection fraction is 45% with no regional wall motion abnormality, right ventricle is normal size and contractility. 3. Normal Lexiscan Myoview study. Electronically signed by : Marcial Kaur MD 06/12/2021 22:05:20
--- NOTE | 2021-06-12 06:21 | CA_ITS ---
APPROVED REPORT Exam: Pharmacologic Technologist: Melani Gatica, Ht: 6 ft 1 in Wt: 251 lbs BSA: 2.37 m2 HR: 64 bpm BP: 132/87 mmHg Rhythm: NSR, 1st degree AVB, cannot R/O old inferior [place] Medical History Medical History: HTN, Hyperlipidemia Medications: Lisinopril,,,,, Aspirin,,,,, Synthroid,,,,, Allopurinol,,,,, Atorvastatin,,,,, TAMSULOSIN,,,,, ProMETHAZINE,,,,, Hydrocodone Acetaminophen,,,,, Cardiac Risk Factors: HTN, Hyperlipidemia, FHX of CAD Stress Test Details Test: LEXISCAN HR Resting HR: 65 bpm Max Heart Rate (APMHR): 153.113345 bpm Max HR Achieved: 91 bpm Target HR (85% APMHR): 130.250556 bpm % of APMHR: 59.48 Recovery HR: 77 bpm BP Resting BP: 132/87 mmHg Max BP: 139/85 mmHg Recovery BP: 139.0/85.0 mmHg ECG Resting ECG: NSR, 1st degree AVB, cannot R/O old inferior [place] Clinical Exercise duration: 04:01 min Highest Stage Achieved: Exercise capacity: 1.0 METs Stress ECG Conclusion During lexiscan pt experinced SOA, swimmy headed. No CP noted. No arrhythmias noted. No significant ST changes. Unremarkable lexiscan stress. Myoview images reported separately. Test Summary REST . . . . . . . Sitting REST 07:39 . . 65 . 132/ 87 . . Stage 1 01:00 . . 86 . . . . Stage 2 01:00 . . 88 . . . . Stage 3 01:00 . . 77 . 132/ 86 . . Stage 4 01:00 . . 73 . 129/ 86 . . Stage 4 01:01 . . 73 . 129/ 86 . Stop exercise at 04:01 RECOVERY 01:00 . . 77 . . . . RECOVERY 02:00 . . 76 . . . . RECOVERY 03:00 . . 72 . 139/ 85 . . RECOVERY 04:00 . . 72 . 139/ 85 . . RECOVERY 04:37 . . 74 . 132/ 86 . . Electronically signed by : Marcial Kaur MD 06/12/2021 21:58:24
--- NOTE | 2021-06-12 06:21 | CA_ITS ---
APPROVED REPORT EXAM: Comprehensive 2D, Doppler, and color-flow Echocardiogram Support Associate: Sabine Hilario RT(R) Ht: 6 ft 1 in Wt: 251lbs BSA: 2.37 BP: 147/97 mmHg Indications: CP, HTN, SOB, ABN EKG, hx MD, dizziness 2D Dimensions LVOT 2.23 cm (M/F) 1.5-2.5 LVEF (Ignacio's) 58.80 % M: 52 - 72 LV Volume 132.50 mL M: 62 - 150 LV Volume Index 55.90 mL/m2 M: 34 - 74 LA Volume 16.10 mL LA Volume Index 6.79 mL/m2 (M/F) 16-34 M-Mode Dimensions RVDd 2.50 cm (0.9-2.6) LA Diam 3.15 cm (1.9-4.0) LVDd 5.04 cm (3.5-5.7) Ao Diam 3.41 cm (2.0-3.7) LVDs 4.01 cm (3.5-5.7) IVSd 0.89 cm (0.6-1.1) PWd 0.98 cm (0.6-1.1) EF (Teich) 41.60% FS 20.40% EDV (Teich) 120.50 mL ESV (Teich) 70.40 mL LV Diastology E Decel Time 267.00 (160-240 msec) E/A Ratio 0.7 MED E' 7.30 (< 7 cm/sec) E'/MED E' Ratio 8.22 (>14) LAT E' 8.60 (<10 cm/sec) E/LAT E' Ratio 6.98 (>14) Mitral Valve MV E Max Donald. 60.00 (40-130 cm/s) MV A Velocity 84.00 (40-130 cm/s) E/A Ratio 0.71 MV Decel. Time 267.00 (160-240 ms) MV PHT 78.00 ms Left Ventricle Left atrium is mildly enlarged, left ventricle is normal size, mild concentric left ventricular hypertrophy, estimated ejection fraction 55% with no regional wall motion abnormality, grade 1 diastolic dysfunction seen without tissue Doppler evidence of raise left atrial pressure. Right Ventricle Right atrium and right ventricle are normal size and contractility. Aortic Valve Aortic valve is thickened and calcified without aortic stenosis or aortic insufficiency. Mitral Valve Mitral valve grossly normal, there is trace mitral regurgitation. Tricuspid Valve Tricuspid grossly normal, there is trace tricuspid regurgitation, tricuspid regurgitation jet velocity is inadequate for calculation of the right ventricular systolic pressure. Pulmonic Valve Pulmonic valve is poorly visualized. Great Vessels Aortic root is normal size. Inferior vena cava is poorly visualized. Pericardium No significant pericardial effusion noted. Conclusion 1. Mildly enlarged left atrium, normal left ventricular size, mild concentric left ventricular hypertrophy, estimated ejection fraction 55% with no regional wall motion abnormality, grade 1 diastolic dysfunction seen without tissue Doppler evidence of raise left atrial pressure. 2. Trace mitral and tricuspid regurgitation. 3. No significant pericardial effusion noted 4. Inferior vena cava is poorly visualized. Electronically signed by : Marcial Kaur MD 06/12/2021 21:32:17
--- NOTE | 2021-06-12 06:21 | CA_ITS ---
FINAL REPORT TECHNIQUE: Color Doppler, duplex Doppler and campos scale sonography of the bilateral neck arterial vasculature was performed. Velocities were measured in the carotid arteries. Stenosis evaluation based on the validated velocity criteria. CLINICAL HISTORY: dizziness, CP, SOA FINDINGS: The peak systolic velocity of the right common carotid artery is 94 cm/s. The peak systolic velocity of the right internal carotid artery is 86 cm/s and end diastolic velocity 33 cm/s. The ICA/CCA ratio is 1.4. A mild amount of plaque is present. The right external carotid artery is patent. The right vertebral artery is patent with antegrade flow. The peak systolic velocity of the left common carotid artery is 74 cm/s. The peak systolic velocity of the left internal carotid artery is 96 cm/s and end diastolic velocity 39 cm/s. The ICA/CCA ratio is 1.58. A mild amount of plaque is present. The left external carotid artery is patent.The left vertebral artery is patent with antegrade flow. IMPRESSION: Less than 50% bilateral carotid stenosis. Bilateral patent vertebral arteries with antegrade flow. Reviewed, Interpreted and Dictated by Alec Mauricio MD Transcribed by Yandy Germain Authenticated by Alec Mauricio MD on 06/12/2021 11:37:03 AM [facility]
--- NOTE | 2021-06-12 08:14 | HMH.ITSHM ---
Current Home Medications as stated by this patient Jose G Germain or sales representative education courses. []TAMSULOSIN NITRO METOPROLOL LISINOPRIL LEVOTHYROXINE ATORVASTATIN ASA ALLOPURINOL PROMETHAZINE HYDROCODONE
== END ==
PROVIDERS: PCP Nurse Practitioner Family; Visit Provider Physician Assistant
DX: I25.2 Old myocardial infarction (principal); R06.02 Shortness of breath; R07.89 Other chest pain; R42 Dizziness and giddiness; R94.31 Abnormal electrocardiogram [ECG] [EKG]; R09.89 Other specified symptoms and signs involving the circulatory and respiratory systems
CPT/HCPCS: 78452; 93017; 93306; 93880; A9502; J2785

== ENCOUNTER 2021-06-17 08:32 | Emergency (ER) | payer MEDICARE, SELFPAY ==
[2021-06-17 08:32] VITALS: BP 138/95; PULSE 81; RESP 16; TEMP 36.7; O2SAT 98; BMI 32.3
--- NOTE | 2021-06-17 08:57 | CT_ITS ---
FINAL REPORT CLINICAL HISTORY: flank pain, h/o stones COMPARISON: July 29, 2020 FINDINGS: Axial CT images of the abdomen and pelvis were obtained without intravenous contrast. Coronal reformatted images were also obtained.This study was performed with techniques to keep radiation doses as low as reasonably achievable (ALARA). Individualized dose reduction techniques using automated exposure control or adjustment of mA and/or kV according to the patient's size were employed. Abdomen: The lung bases are clear. There are bilateral nonobstructing renal stones measuring up to approximately 3 mm. The gallbladder is absent. The liver is fatty infiltrated. The spleen and pancreas have an unremarkable, unenhanced appearance. No mass or adenopathy is seen. No inflammatory process is identified. Pelvis: Images of the pelvis reveal no evidence of ureteral dilation or ureteral stone.No mass or abnormal fluid collection is identified. The appendix is normal. There is diverticulosis of the descending colon and sigmoid colon. IMPRESSION: Bilateral nonobstructing renal stones. Diverticulosis without diverticulitis. Fatty liver. Reviewed, Interpreted and Dictated by Darryl Clark III, MD Transcribed by James Norris Authenticated by Darryl Clark III, MD on 06/17/2021 10:54:58 AM [facility]
--- NOTE | 2021-06-17 08:59 | HMH.EDABDPAI ---
ED Disposition Clinical Impression: Renal colic on right side Disposition: Home, Self-Care Condition on Discharge: Good Instructions: Kidney Stones -- Adult Prescriptions: Hydrocod/Acet 5/325 mg [Welsh 5/325mg tablet] 1 tab PO Q6HP PRN #10 tab PRN Reason: Moderate Pain Transmission Status: Sent to [facility] Ondansetron [Zofran 4mg ODT] 4 mg PO BIDP PRN #10 tab PRN Reason: Nausea Transmission Status: Pending to [facility] Referrals: Lalo España MD [Primary Care Provider] - Bradley Salazar MD [Staff Physician] - - Critical Care Critical Care Time: No Attestation: On 06/17/21, the high probability of a clinically significant, sudden or life threatening deterioration of the following system(s) required my full and direct attention, intervention and personal management. The time I documented below is in addition to time spent performing reported procedures but includes the following listed in this critical care notation. Medical Decision Making - Medical Records Medical records reviewed: Yes: I reviewed the patient's medical records. - Rogelio Inquiry Pt receiving controlled substance: Yes Rogelio was queried for this patient: Yes Reference #:: [id number] Risks and benefits of using a controlled substance: were discussed with pt by me Vital Signs: 06/17/21 08:32 Temperature 98.1 F Temperature Source Oral Pulse Rate [Right Radial] 81 Respiratory Rate 16 Blood Pressure [Right Arm] 138/95 H Blood Pressure Mean [Right Arm] 109 Blood Pressure Source [Right Arm] Automatic Cuff Blood Pressure Position [Right Arm] Sitting 02 Sat by Pulse Oximetry 98 Oxygen Delivery Method Room Air - Lab Data Lab Results 06/17/21 09:02: WBC 7.3, RBC 4.52 L, Hgb 14.9, Hct 44.3, MCV 98.0 H, MCH 33.1 H, MCHC 33.8, RDW 13.6, Plt Count 315, MPV 8.1, Neut % (Auto) 66.6, Lymph % (Auto) 22.0, [place] % (Auto) 7.9, Eos % (Auto) 1.8, Baso % (Auto) 1.7, Neut # (Auto) 4.8, Lymph # (Auto) 1.6, [place] # (Auto) 0.6, Eos # (Auto) 0.1, Baso # (Auto) 0.1 06/17/21 09:02: Sodium 138, Potassium 5.0, Chloride 101, Carbon Dioxide 29, Anion Gap 13.0, BUN 19, Creatinine 0.80, Estimated Creat Clear 113, Estimated GFR 96, Est GFR ( Amer) 117, Glucose 123 H, Calcium 9.7, Total Bilirubin 0.5, AST 69 H, ALT 72, Alkaline Phosphatase 134 H, Total Protein 7.9, Albumin 4.9, Globulin 3.0, Albumin/Globulin Ratio 1.6, Lipase 106 06/17/21 09:50: Urine Color Yellow, Urine Appearance Clear, Urine pH 6.0, Ur Specific [place] 1.020, Urine Protein Negative, Urine Glucose (UA) Negative, Urine Ketones Negative, Urine Blood Negative, Urine Nitrate Negative, Urine Bilirubin Negative, Urine Urobilinogen 0.2, Ur Leukocyte Esterase Negative, Urine RBC None, Urine WBC 3-5, Ur Squamous Epith Cells 3-5, Urine Bacteria None Result diagrams: 06/17/21 09:02 06/17/21 09:02 Orders (Tests/Meds): ED MEDICATIONS Discontinued Medications Generic Name Dose Route Start Last Admin Trade Name Freq PRN Reason Stop Dose Admin Hydromorphone HCl 1 mg 06/17/21 09:44 06/17/21 09:46 Hydromorphone 2mg/Ml Syringe IV 06/17/21 09:45 1 mg ONCE ONE Administration Lactated Ringer's 1,000 mls @ 999 mls/hr 06/17/21 09:00 06/17/21 09:20 Lactated Ringer's 1000 Ml Bag IV 06/17/21 10:00 999 mls/hr .Q1H1M JANIA Administration Ketorolac Tromethamine 30 mg 06/17/21 08:57 06/17/21 09:26 Ketorolac 30mg/Ml Vial IV 06/17/21 08:58 Not Given ONCE ONE Morphine Sulfate 4 mg 06/17/21 08:57 06/17/21 09:20 Morphine 4mg/Ml Syringe IV 06/17/21 08:58 4 mg ONCE ONE Administration Ondansetron HCl 4 mg 06/17/21 08:57 06/17/21 09:20 Ondansetron 4mg/2ml Vial IV 06/17/21 08:58 4 mg ONCE ONE Administration - CT Data CT Scan: Abdomen, Pelvis Time Received: 11:[address] Reviewed: Yes: I have reviewed the patient's CT results, I have viewed the radiologist's interpretation Findings Narrative: IMPRESSION:
[2021-06-17 09:23] LABS: Alanine Aminotransferase 72 U/L (12-78); Albumin Level 4.9 g/dl (3.5-5.0); Albumin/Globulin Ratio 1.6 (1.1-1.8); Alkaline Phosphatase 134 U/L (38-126); Aspartate Amino Transferase 69 U/L (17-59); Bilirubin,Total 0.5 mg/dl (0.2-1.3); Blood Urea Nitrogen 19 mg/dl (9-20); Calcium 9.7 mg/dl (8.4-10.2); Carbon Dioxide 29 mmol/L (22.0-30.0); Chloride 101 mmol/L (98-107); Creatinine Clearance Estimated 113 mL/min (50-200); Estimated Glomerular Filt Rate 96 ml/min (>60); GFR (African American) 117 ML/MIN (>60); Glucose 123 mg/dl (74-100); Lipase 106 U/L (23-300); Sodium 138 mmol/L (136-145); Total Protein,Serum 7.9 g/dl (6.3-8.2)
[2021-06-17 09:28] LABS: Basophils # 0.1 K/mm3 (0-0.2); Basophils % 1.7 % (0.1-2.0); Eosinophils # 0.1 K/mm3 (0.0-0.4); Eosinophils % 1.8 % (0.1-12.0); Hematocrit 44.3 % (42.0-52.0); Hemoglobin 14.9 g/dL (14.1-18.0); Lymphocytes # 1.6 K/mm3 (0.7-4.5); Mean Corpuscular HGB Conc 33.8 g/dL (31.8-35.4); Mean Corpuscular Hemoglobin 33.1 pg (27.0-31.2); Mean Platelet Volume 8.1 fl (7.4-10.4); Monocytes # 0.6 K/mm3 (0.1-1.0); Monocytes % 7.9 % (1.7-9.3); Neutrophils # 4.8 K/mm3 (1.8-7.8); Neutrophils % 66.6 % (37.0-80.0); Platelet Count 315 K/mm3 (142-424); Red Blood Count 4.52 M/mm3 (4.60-6.20); Red Cell Distribution Width 13.6 % (11.5-17.5); White Blood Count 7.3 K/mm3 (4.8-10.8)
--- NOTE | 2021-06-17 09:45 | PC.NURSE ---
Pt advising his pain has started to increase again. VO for 1mg of dilaudid
[2021-06-17 09:56] LABS: Microscopic, Urine URINE MICROSCOPIC (MICROSCOPIC)
[2021-06-17 09:57] LABS: Appearance,Urine CLEAR (Clear); Bilirubin,Urine Negative (Negative); Blood, Urine Negative (Negative); Color,Urine YELLOW (Yellow); Glucose,Urine (UA) Negative (Negative); Ketones,Urine Negative (Negative); Leukocyte Esterase,Urine Negative (Negative); Nitrate,Urine Negative (Negative); Protein,Urine Negative (Negative); Urobilinogen,Urine 0.2 EU/dl (0.2)
--- NOTE | 2021-06-17 10:21 | PC.NURSE ---
Pt advising pain is better at this time. Updated pt that we were waiting on CT results
[2021-06-17 11:40] VITALS: BP 132/70; PULSE 70; RESP 16; TEMP 37; O2SAT 98
== END 2021-06-17 11:41 | disposition home or self-care (01) ==
PROVIDERS: Emergency Provider Emergency Medicine; PCP Family Medicine
DX: N23 Unspecified renal colic (principal); Z87.442 Personal history of urinary calculi; I25.10 Atherosclerotic heart disease of native coronary artery without angina pectoris; I25.2 Old myocardial infarction; E78.5 Hyperlipidemia, unspecified; K21.9 Gastro-esophageal reflux disease without esophagitis; I10 Essential (primary) hypertension; Z72.0 Tobacco use
CPT/HCPCS: 74176; 80053; 81001; 83690; 85025; 96365; 96375; 99284; J2405

== ENCOUNTER → 2022-01-01 08:31 | Outpatient (CLI) | payer MEDICARE, SELFPAY ==
[2022-01-01 08:38] LABS: MANUAL DIFFERENTIAL MANUAL DIFFERENTIAL (MANUAL DIFF); Microscopic, Urine URINE MICROSCOPIC (MICROSCOPIC)
[2022-01-01 09:04] LABS: Basophils # 0.1 K/mm3 (0-0.2); Basophils % 1.5 % (0.1-2.0); Eosinophils # 0.1 K/mm3 (0.0-0.4); Eosinophils % 1.9 % (0.1-12.0); Hematocrit 45.1 % (42.0-52.0); Hemoglobin 14.7 g/dL (14.1-18.0); Lymphocytes # 2.1 K/mm3 (0.7-4.5); Lymphocytes % 29.1 % (10-50); Mean Corpuscular HGB Conc 32.6 g/dL (31.8-35.4); Mean Corpuscular Hemoglobin 31.5 pg (27.0-31.2); Mean Corpuscular Volume 96.9 fl (80-94); Mean Platelet Volume 7.7 fl (7.4-10.4); Monocytes # 0.5 K/mm3 (0.1-1.0); Monocytes % 6.3 % (1.7-9.3); Neutrophils # 4.3 K/mm3 (1.8-7.8); Platelet Count 304 K/mm3 (142-424); Red Blood Count 4.66 M/mm3 (4.60-6.20); Red Cell Distribution Width 13.9 % (11.5-17.5); White Blood Count 7.1 K/mm3 (4.8-10.8)
[2022-01-01 09:05] LABS: Appearance,Urine CLEAR (Clear); Bilirubin,Urine Negative (Negative); Blood, Urine Negative (Negative); Color,Urine YELLOW (Yellow); Glucose,Urine (UA) Negative (Negative); Ketones,Urine Negative (Negative); Leukocyte Esterase,Urine Negative (Negative); Nitrate,Urine Negative (Negative); Protein,Urine Negative (Negative); Specific Gravity, Urine >= 1.030 (1.005-1.030); Urobilinogen,Urine 0.2 EU/dl (0.2)
[2022-01-01 09:41] LABS: Alanine Aminotransferase 44 U/L (12-78); Albumin Level 4.8 g/dl (3.5-5.0); Albumin/Globulin Ratio 1.8 (1.1-1.8); Alkaline Phosphatase 153 U/L (38-126); Aspartate Amino Transferase 44 U/L (17-59); Bilirubin,Total 0.4 mg/dl (0.2-1.3); Blood Urea Nitrogen 29 mg/dl (9-20); Calcium 9.8 mg/dl (8.4-10.2); Carbon Dioxide 27 mmol/L (22.0-30.0); Chloride 101 mmol/L (98-107); Chol/HDL Ratio 2.8 (1-3.5); Cholesterol 138 mg/dl (140-200); Estimated Glomerular Filt Rate 96 ml/min (>60); GFR (African American) 116 ML/MIN (>60); Globulin 2.6 g/dL (1.3-3.2); Glucose 106 mg/dl (74-100); HDL Cholesterol 49 mg/dl (40-60); Sodium 139 mmol/L (136-145); Total Protein,Serum 7.4 g/dl (6.3-8.2); Triglycerides 126 mg/dl (30-150); Uric Acid 4.7 mg/dl (3.5-8.5); VLDL Cholesterol 25 mg/dL (0-40)
[2022-01-01 09:44] LABS: Hemoglobin A1C 5.7 % (4.0-6.0)
[2022-01-01 09:51] LABS: Direct LDL Cholesterol 55.81 mg/dL (100-129)
[2022-01-01 10:11] LABS: Thyroid Stimulating Hormone 3.08 uIU/mL (0.465-4.68)
[2022-01-01 10:22] LABS: Eosinophils % 3 % (0-3); Lymphocytes % 27 % (10-50); Monocytes % 5 % (2-9); Neutrophils % 65 % (42-76); Platelet Estimate Normal; RBC Morphology Normal; Total Cells Counted 100
[2022-01-01 10:23] LABS: WBC,Urine Occasional #/hpf (0-3)
== END ==
PROVIDERS: PCP Family Medicine; Visit Provider Family Medicine
DX: E03.9 Hypothyroidism, unspecified (principal); E78.5 Hyperlipidemia, unspecified; J32.9 Chronic sinusitis, unspecified; M10.9 Gout, unspecified; N20.1 Calculus of ureter; N23 Unspecified renal colic; Z00.00 Encounter for general adult medical examination without abnormal findings; Z12.11 Encounter for screening for malignant neoplasm of colon; Z12.5 Encounter for screening for malignant neoplasm of prostate; Z13.31 Encounter for screening for depression; Z68.32 Body mass index [BMI] 32.0-32.9, adult; Z86.010 Personal history of colon polyps; Z98.890 Other specified postprocedural states; E11.9 Type 2 diabetes mellitus without complications
CPT/HCPCS: 36415; 80053; 80061; 81001; 83036; 84443; 84550; 85007; 85014; 85018; 85048; 85049

== ENCOUNTER → 2022-01-27 05:49 | Outpatient (CLI) | payer MEDICARE, SELFPAY | PROVIDERS: PCP Family Medicine; Visit Provider Family Medicine | DX: T63.301A Toxic effect of unspecified spider venom, accidental (unintentional), initial encounter (principal); S80.861A Insect bite (nonvenomous), right lower leg, initial encounter | CPT/HCPCS: 87070; 87205 ==

== ENCOUNTER → 2022-01-29 10:21 | Outpatient (CLI) | payer MEDICARE, SELFPAY ==
[2022-01-29 11:25] LABS: Hemoglobin A1C 5.9 % (4.0-6.0)
[2022-01-29 11:39] LABS: Alanine Aminotransferase 49 U/L (12-78); Albumin/Globulin Ratio 1.7 (1.1-1.8); Alkaline Phosphatase 136 U/L (38-126); Anion Gap 15.2 mEq/L (5-15); Aspartate Amino Transferase 59 U/L (17-59); Bilirubin,Total 0.6 mg/dl (0.2-1.3); Blood Urea Nitrogen 27 mg/dl (9-20); Calcium 9.6 mg/dl (8.4-10.2); Carbon Dioxide 27 mmol/L (22.0-30.0); Chloride 101 mmol/L (98-107); Chol/HDL Ratio 2.6 (1-3.5); Cholesterol 123 mg/dl (140-200); Estimated Glomerular Filt Rate 74 ml/min (>60); GFR (African American) 90 ML/MIN (>60); Globulin 2.9 g/dL (1.3-3.2); Glucose 84 mg/dl (74-100); HDL Cholesterol 47 mg/dl (40-60); Potassium 5.2 mmoL/L (3.5-5.1); Sodium 138 mmol/L (136-145); Total Protein,Serum 7.9 g/dl (6.3-8.2); Triglycerides 101 mg/dl (30-150); VLDL Cholesterol 20 mg/dL (0-40)
[2022-01-29 11:50] LABS: Direct LDL Cholesterol 51.86 mg/dL (100-129)
[2022-01-29 12:09] LABS: Thyroid Stimulating Hormone 4.41 uIU/mL (0.465-4.68)
[2022-01-30 14:46] LABS: Alkaline Phosphatase 116 IU/L (44-121); Bone Fraction: 37 % (12-68); Intestinal Frac.: 4 % (0-18); Liver Fraction: 59 % (13-88)
== END ==
PROVIDERS: PCP Family Medicine; Visit Provider Family Medicine
DX: R73.03 Prediabetes (principal); E03.9 Hypothyroidism, unspecified; M10.9 Gout, unspecified; R74.8 Abnormal levels of other serum enzymes; E78.5 Hyperlipidemia, unspecified
CPT/HCPCS: 36415; 80053; 80061; 83036; 84075; 84080; 84443; 84550

== ENCOUNTER → 2022-02-04 10:00 | Outpatient (CLI) | payer MEDICARE, SELFPAY | PROVIDERS: PCP Family Medicine; Visit Provider Family Medicine | DX: Z51.89 Encounter for other specified aftercare (principal); L72.3 Sebaceous cyst; B95.7 Other staphylococcus as the cause of diseases classified elsewhere; B95.2 Enterococcus as the cause of diseases classified elsewhere | CPT/HCPCS: 87070; 87077; 87186; 87205 ==

== ENCOUNTER 2022-02-28 09:26 | Day surgery (SDC) | payer MEDICARE, SELFPAY ==
[2022-02-26 10:48] VITALS: BMI 32.0
[2022-02-28 09:48] VITALS: BP 134/83; PULSE 64; RESP 18; TEMP 36.6; O2SAT 98
--- NOTE | 2022-02-28 10:40 | P.PN_ITS ---
[facility] Disclaimer: The information contained in this section may have been updated after the patient was seen, as this information can be updated by other users. 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 caffeine: Yes [facility] [place] Anesthesia Checklist Patient Identification Patient Identification: Arm Band and Verbal (Name & ) Structural Data Admitted From: Home Planned Operative Procedure/s: E/C Consent for Planned Operative Procedure(s) Verified: Yes NPO Status Verified Time NPO: 00:00 Additional verifications Anesthesia Reactions: No Hx Blood Transfusions: No Blood Transfusion Reaction: No Airway Assessment C-Spine Mobility Assessed: Yes TMJ Mobility Assessed: Yes Dentition: Good Dentition Neurological Assessment Level of Consciousness: Awake Hx Seizures: No Numbness or tingling in extremities: No Anesthesia Plan Anesthesia Risk discussed: Yes Anesthesia Plan: Verified ASA Class: III Anesthesia Type: MAC
[2022-02-28 11:12] VITALS: O2SAT 97
[2022-02-28 11:53] VITALS: BP 102/70; PULSE 65; RESP 16; TEMP 36.4; O2SAT 92
--- NOTE | 2022-02-28 11:58 | HMH.SCOPE ---
Procedure: Date: 02/28/22 Patient Date of :: 1955 Procedure Performed:: Total colonoscopy to terminal ileum with polypectomy using biopsy Indications:: Patient is a 66-year-old male. I performed colonoscopy on him on 03/13/2015 at which time he had a polyp. I did a follow-up colonoscopy on 06/06/2020. At that time he had a fair prep and he had at least 2 tubular adenomas. He recently had Hemoccult testing which was positive. He was scheduled for colonoscopy. Performing Provider:: Darryl Tabor MD Referring Provider:: Guillermina Day Sedation:: MAC sedation Procedure:: Patient history was obtained and appropriate physical examination was performed. Patient's medications and allergies were reviewed. Informed consent was obtained after explaining the benefits, alternatives, and risks of the procedure including, but not limited to, bleeding, perforation, missed lesions, and adverse reaction to anesthesia medications. Patient was transported to endoscopy procedure room. Patient was connected to monitoring devices. Throughout the procedure the patient's blood pressure, pulse, and oxygen saturations were monitored continuously. Patient identification and planned procedure were verified by the staff. Patient was positioned in lateral decubitus position. Digital anorectal exam was performed. Variable stiffness Olympus colonoscope was inserted and advanced under direct visualization to the cecum. Adequacy of the colonic preparation was noted. The colonoscope was advanced a short distance into the terminal ileum. The colonoscope was then slowly withdrawn while carefully examining the color, texture, anatomy, and integrity of the mucosoa circumferentially. Within the rectum retroflexion was performed. Colonoscope was then withdrawn. Findings:: Digital examination was performed which revealed somewhat of a large prostate. Variable stiffness Olympus colonoscope was inserted via the anus. With some difficulty due to redundancy and floppiness of the colon it was ultimately advanced to the cecum. Colonic preparation was fair as there is some particulate liquid stool but visualization was able to be achieved with thorough high-volume irrigation and suctioning. Colonoscope was advanced a short distance into the terminal ileum. He did have some cecal diverticuli. Colonoscope was withdrawn through the colon. There were a few sigmoid diverticuli. There were some hyperplastic appearing rectosigmoid polyps which was removed with biopsy forceps. Retroflexion revealed some nonbleeding prolapsing internal hemorrhoids. Impression: Fair prep. Good visualization with high-volume irrigation and suctioning Cecal and sigmoid diverticulosis Rectosigmoid hyperplastic appearing polyps Nonbleeding internal hemorrhoids Recommendations:: Likely repeat colonoscopy 5 years given prior history of tubular adenomas Complications:: None immediately apparent Estimated blood obtained (mL): 1
[2022-02-28 12:03] VITALS: BP 119/82; PULSE 55; RESP 16; O2SAT 97
[2022-02-28 12:13] VITALS: BP 116/78; PULSE 68; RESP 17; O2SAT 97
[2022-02-28 12:34] VITALS: BP 111/82; PULSE 84; RESP 18; O2SAT 96
== END 2022-02-28 12:36 | disposition home or self-care (01) ==
PROVIDERS: PCP Family Medicine; Visit Provider Surgery
PROC: 0DJ08ZZ Inspection of Upper Intestinal Tract, Via Natural or Artificial Opening Endoscopic (ICD-10-PCS; CPT 43235; principal; 2022-02-28 10:30)
DX: R19.5 Other fecal abnormalities (principal); Z86.010 Personal history of colon polyps; K63.5 Polyp of colon; K64.8 Other hemorrhoids
CPT/HCPCS: 45380; J2704

== ENCOUNTER 2022-05-02 20:07 | Emergency (ER) | payer MEDICARE, SELFPAY ==
[2022-05-02 20:26] VITALS: BP 135/72; PULSE 75; RESP 18; TEMP 36.6; O2SAT 98; BMI 32.3
--- NOTE | 2022-05-02 20:34 | XR_ITS ---
PROCEDURE INFORMATION: Exam: XR Left Femur Exam date and time: 05/02/2022 8:38 PM Age: 66 years old Clinical indication: Pain; Hip and thigh; Left; Additional info: Pain unknown etiology TECHNIQUE: Imaging protocol: Radiologic exam of the left femur. Views: 2 views. COMPARISON: CR Pelvis 05/02/2022 8:37 PM FINDINGS: Bones/joints: Osseous alignment is normal. No acute fracture. Mild degenerative changes noted in the left hip and left knee. Soft tissues: Unremarkable. IMPRESSION: Mild degenerative changes of the left hip and knee. No acute abnormality
--- NOTE | 2022-05-02 20:34 | XR_ITS ---
PROCEDURE INFORMATION: Exam: XR Pelvis Exam date and time: 05/02/2022 8:37 PM Age: 66 years old Clinical indication: Pelvic pain; Additional info: Pain unknown etiology TECHNIQUE: Imaging protocol: Radiologic exam of the pelvis. Views: 1 or 2 view. COMPARISON: CT ABDOMEN PELVIS WO CON 06/17/2021 9:04 AM FINDINGS: Bones/joints: Moderate degenerative changes are noted in the lower lumbar spine. Mild degenerative changes noted in the hip joints and pubic symphysis. Osseous alignment is normal. No acute fracture. Soft tissues: Unremarkable. IMPRESSION: No acute fracture. Arthritic changes as noted.
--- NOTE | 2022-05-02 20:42 | PC.NURSE ---
patient in wheelchair. left shoe removed. positive PMS. Skin slightly cool to touch, but blanches easily. Cap refill adequate. No obvious edema in comparison to right foot.
--- NOTE | 2022-05-02 20:44 | PC.NURSE ---
patient gone to RAD at this time.
--- NOTE | 2022-05-02 20:49 | HMH.EDEXTP ---
Discharge Plan Disposition Patient Disposition: Xfer Short-Term Hosp Chief Complaint: Extremity Injury, Lower Prescriptions Prescriptions: No Action aspirin [Aspir-81] 81 mg tablet,delayed release (DR/EC) 81 mg PO DAILY nitroglycerin 0.4 mg tablet, sublingual 0.4 mg SUBLINGUAL Q5M PRN (Reason: chest pain) Qty: 20 0RF Rx Instructions: do not exceed 3 doses per episode allopurinol 300 mg tablet 300 mg PO DAILY Qty: 90 1RF atorvastatin 10 mg tablet 10 mg PO DAILY Qty: 90 1RF levothyroxine [Synthroid] 75 mcg tablet 75 mcg PO DAILY Qty: 90 1RF lisinopril 20 mg tablet 20 mg PO DAILY Qty: 90 1RF Referrals Follow up/Referrals: Guillermina Gomes DO [Primary Care Provider] - See instructions Clinical Impressions Clinical Impression: Lumbar radicular syndrome Discharge ED Provider: Chanelle (ED)Herman Extremity Problem HPI General Chief complaint: Extremity Injury, Lower Stated complaint: left leg pain, no known accident Time Seen by Provider: 05/02/22 20:50 Mode of Arrival: Family Vehicle Source of Information: Patient and Medical Record Limitations: No Limitations Description of Symptoms (Recalled from ER Triage Doc. by RN): 66 yo male presents with new onset of LLE pain that began yesterday. He stated upon awakening he completed his normal routine which included walking 3 miles on the treadmill, and upon completing, he laid back in his recliner with his feet propped up and took a nap. Upon awakening from his nap was when he noticed the pain to be present. He likens it to nerve-like pain, a 12/10 and states it radiates medially down his leg from his groin. PMH: [place] 20 years ago. Takes a daily aspirin and lisinopril. Smokes occasional cigar, drinks socially. Denies recreational drugs. NKA. Worried because they recently flew back from [place] from vacation in the last week. History of Present Illness HPI Narrative: pt with hx of lumbar spine dis with hx of hansa in past but no surg - pt with no specific injury and has nl activity and dev progressive back pain with rad to lt lower ext with dec mobility sec to pain - no trauma /fever or rash and no cauda equina sx - MD Complaint: extremity pain Onset (ago): day(s) Consistency: constant Location: lower extremity Quality: sharp Associated symptoms: denies other symptoms Related Data Home Medications Medication Instructions Recorded Confirmed aspirin 81 mg tablet,delayed 81 mg PO DAILY [facility] 09/13/18 05/02/22 release (Aspir-) Previous Rx's Medication Instructions Recorded nitroglycerin 0.4 mg sublingual 0.4 mg sublingual Q5M PRN chest 06/06/21 tablet pain #20 tabs allopurinol 300 mg tablet 300 mg PO DAILY gout #90 tabs 01/27/22 atorvastatin 10 mg tablet 10 mg PO DAILY Cholesterol #90 tabs 01/27/22 levothyroxine 75 mcg tablet 75 mcg PO DAILY thyroid #90 tabs 01/27/22 (Synthroid) lisinopril 20 mg tablet 20 mg PO DAILY Hypertension #90 01/27/22 tabs Allergies Allergy/AdvReac Type Severity Reaction Status Date / Time tamsulosin [From Flomax] Allergy Verified 02/28/22 09:43 [facility] Disclaimer: The information contained in this section may have been updated after the patient was seen, as this information can be updated by other users. Medical History High blood pressure High cholesterol History of thyroid cancer Hx of myocardial infarction Surgical History H/O colonoscopy with polypectomy H/O thyroidectomy History of cholecystectomy Hx of repair of left rotator cuff Rotator cuff arthropathy of right shoulder Family History Father Heart attack Brother Heart attack Social History Smoking Status: Current some day smoker tobacco type: cigars alcohol intake:
--- NOTE | 2022-05-02 20:55 | PC.NURSE ---
patient back in room at this time.
--- NOTE | 2022-05-02 20:56 | PC.NURSE ---
Chanelle Patel in room at this time.
[2022-05-02 21:00] VITALS: BP 94/64; PULSE 88; O2SAT 97
--- NOTE | 2022-05-02 21:29 | PC.NURSE ---
PATIENT CONTINUES TO COMPLAIN OF DISCOMFORT. VERBAL ORDERS RECEIVED FOR CARE.
[2022-05-02 21:30] VITALS: BP 93/63; PULSE 82; O2SAT 97
--- NOTE | 2022-05-02 21:45 | CT_ITS ---
PROCEDURE INFORMATION: Exam: CT Lumbar Spine With Contrast Exam date and time: 05/02/2022 10:12 PM Age: 66 years old Clinical indication: Low back pain; Additional info: Pain, unknown etiology TECHNIQUE: Imaging protocol: Computed tomography of the lumbar spine with contrast. Radiation optimization: All CT scans at this facility use at least one of these dose optimization techniques: automated exposure control; mA and/or kV adjustment per patient size (includes targeted exams where dose is matched to clinical indication); or iterative reconstruction. Contrast material: ISOVUE; Contrast volume: 75 ml; Contrast route: IV; REPORTING DATA: Count of CT and Cardiac NM exams in prior 12 months: This patient has received [address] and 0 known cardiac nuclear medicine studies in the 12 months prior to the current study. COMPARISON: CR LS5 LUMBAR SPINE 5 VIEWS 08/11/2016 10:06 AM FINDINGS: Bones/joints: There is severe bilateral facet arthropathy at L4-L5 with associated grade 1 anterolisthesis of L4. There is [id number]-fefufoot multilevel disc bulge and uncovertebral spurring, most pronounced at the lumbosacral junction. Disc bulge produces significant stenosis of the left L4 and bilateral L5 neural exit foramina. No vertebral body compression or acute fracture. Moderate degenerative changes noted in the bilateral sacroiliac joints. Kidneys and ureters: Small caliceal stones are noted in the right kidney. Soft tissues: Unremarkable. IMPRESSION: 1. Significant degenerative changes of the lumbar spine. No evidence of acute injury. 2. Mild right nephrolithiasis.
[2022-05-02 21:52] LABS: Basophils # 0.1 K/mm3 (0-0.2); Basophils % 1.1 % (0.1-2.0); Eosinophils # 0.1 K/mm3 (0.0-0.4); Eosinophils % 1.1 % (0.1-12.0); Hematocrit 41.5 % (42.0-52.0); Hemoglobin 14.3 g/dL (14.1-18.0); Lymphocytes # 2.2 K/mm3 (0.7-4.5); Mean Corpuscular HGB Conc 34.4 g/dL (31.8-35.4); Mean Corpuscular Hemoglobin 32.4 pg (27.0-31.2); Mean Corpuscular Volume 94.2 fl (80-94); Mean Platelet Volume 7.6 fl (7.4-10.4); Monocytes # 1.3 K/mm3 (0.1-1.0); Monocytes % 11.6 % (1.7-9.3); Neutrophils # 7.7 K/mm3 (1.8-7.8); Neutrophils % 67.3 % (37.0-80.0); Platelet Count 284 K/mm3 (142-424); Red Blood Count 4.41 M/mm3 (4.60-6.20); Red Cell Distribution Width 13.3 % (11.5-17.5); White Blood Count 11.4 K/mm3 (4.8-10.8)
--- NOTE | 2022-05-02 21:58 | XR_ITS ---
PROCEDURE INFORMATION: Exam: XR Chest Exam date and time: 05/02/2022 10:31 PM Age: 66 years old Clinical indication: Cough; Additional info: Coughing TECHNIQUE: Imaging protocol: Radiologic exam of the chest. Views: 1 view. COMPARISON: CR Chest 07/12/2018 10:40 AM FINDINGS: Lungs: Unremarkable. No consolidation. Pleural spaces: Unremarkable. No pleural effusion. No pneumothorax. Heart/Mediastinum: Unremarkable. No cardiomegaly. Bones/joints: Mild degenerative changes of the spine and shoulders noted. IMPRESSION: No acute disease
[2022-05-02 22:02] LABS: Alanine Aminotransferase 39 U/L (12-78); Albumin Level 4.7 g/dl (3.5-5.0); Albumin/Globulin Ratio 1.5 (1.1-1.8); Alkaline Phosphatase 117 U/L (38-126); Anion Gap 9.4 mEq/L (5-15); Aspartate Amino Transferase 34 U/L (17-59); Bilirubin,Total 0.6 mg/dl (0.2-1.3); Blood Urea Nitrogen 23 mg/dl (9-20); Calcium 8.9 mg/dl (8.4-10.2); Carbon Dioxide 32 mmol/L (22.0-30.0); Chloride 97 mmol/L (98-107); Creatinine Clearance Estimated 111 mL/min (50-200); Estimated Glomerular Filt Rate 84 ml/min (>60); GFR (African American) 102 ML/MIN (>60); Globulin 3.2 g/dL (1.3-3.2); Glucose 180 mg/dl (74-100); Potassium 4.4 mmoL/L (3.5-5.1); Sodium 134 mmol/L (136-145); Total Protein,Serum 7.9 g/dl (6.3-8.2)
[2022-05-02 22:05] LABS: Coronavirus 19, PCR Not Detected (NotDetected); Influenza A, PCR Not Detected (NotDetected); Influenza B, PCR Not Detected (NotDetected)
[2022-05-02 22:07] LABS: C-Reactive Protein 105.9 mg/L (0-4)
[2022-05-02 22:18] LABS: Erythrocyte Sedimentation Rate 52 mm/hr (0-20)
[2022-05-02 22:45] VITALS: BP 132/82; PULSE 72; RESP 14; O2SAT 98
--- NOTE | 2022-05-02 22:45 | PC.NURSE ---
CONTINUES TO COMPLAIN OF PAIN, NEW VERBAL ORDERS RECEIVED.
[2022-05-02 23:40] VITALS: BP 108/62; PULSE 82; RESP 15; O2SAT 97
--- NOTE | 2022-05-03 00:29 | PC.NURSE ---
Called [facility] about transfer, they will call back to see if patient is excepted to wait list.
--- NOTE | 2022-05-03 00:36 | PC.NURSE ---
CALL RECEIVED FROM [facility]; DR KINNEY ON PHONE DISCUSSING CASE WITH MAK.
--- NOTE | 2022-05-03 00:39 | PC.NURSE ---
called [facility], they will call back.
--- NOTE | 2022-05-03 00:43 | PC.NURSE ---
RECEIVED CALL BACK FROM DR FONTAINE AT [facility].
--- NOTE | 2022-05-03 00:44 | PC.NURSE ---
Dr Roca speaking with Dr. Felix from [facility] at this time
--- NOTE | 2022-05-03 00:50 | PC.NURSE ---
said he will get ahold of hospitalist to get status on a bed for patient.
--- NOTE | 2022-05-03 00:58 | PC.NURSE ---
on phone with at this time.
--- NOTE | 2022-05-03 01:17 | PC.NURSE ---
accepted patient. he will call back with bed status for patient .
--- NOTE | 2022-05-03 02:05 | PC.NURSE ---
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
[2022-05-03 02:08] VITALS: BP 101/62; PULSE 80; RESP 15; TEMP 36.7; O2SAT 99
== END 2022-05-03 02:32 | disposition short-term general hospital (02) ==
PROVIDERS: Emergency Provider Emergency Medicine; PCP Family Medicine
DX: M54.16 Radiculopathy, lumbar region (principal)
CPT/HCPCS: 71045; 72132; 72170; 73552; 80053; 85025; 85651; 86140; 96374; 96375; 99285; C9803; J0131; J2405; Q9967; U0003; U0005

== ENCOUNTER → 2022-07-23 10:29 | Outpatient (CLI) | payer MEDICARE, SELFPAY ==
[2022-07-23 11:45] LABS: Hemoglobin A1C 5.5 % (4.0-6.0)
== END ==
PROVIDERS: PCP Nurse Practitioner Family; Visit Provider Nurse Practitioner Family
DX: R73.03 Prediabetes (principal)
CPT/HCPCS: 36415; 83036

== ENCOUNTER → 2022-09-19 12:07 | Outpatient (CLI) | payer MEDICARE, SELFPAY ==
--- NOTE | 2022-09-19 12:17 | CT_ITS ---
FINAL REPORT TECHNIQUE: Axial images through the abdomen and pelvis were performed without contrast. This study was performed with techniques to keep radiation doses as low as reasonably achievable, (ALARA). Individualized dose reduction techniques using automated exposure control or adjustment of mA and/or kV according to the patient's size were employed. CLINICAL HISTORY: CVA tenderness, right flank pain, hx stones COMPARISON: 06/17/2021 FINDINGS: ABDOMEN: The lung bases are clear. The heart size is normal. There is fatty infiltration of the liver. The patient is status post cholecystectomy. The spleen is normal. No adrenal mass is identified. The aorta is normal in caliber. There is no significant free fluid or adenopathy. There are several small nonobstructing bilateral renal stones. There is moderate right hydronephrosis and hydroureter secondary to a 4 mm right UVJ stone. PELVIS: The appendix is normal. There are colonic diverticula. The urinary bladder is unremarkable. There is no significant free fluid or adenopathy. IMPRESSION: Moderate right hydronephrosis and hydroureter secondary to a 4 mm right UVJ stone. Bilateral nephrolithiasis. Reviewed, Interpreted and Dictated by Darryl Clark III, MD Transcribed by Ingrid Lozada Authenticated and [facility]
[2022-09-19 12:36] LABS: Basophils # 0.1 K/mm3 (0-0.2); Basophils % 0.9 % (0.1-2.0); Eosinophils # 0.2 K/mm3 (0.0-0.4); Eosinophils % 3.3 % (0.1-12.0); Hematocrit 45.7 % (42.0-52.0); Hemoglobin 14.6 g/dL (14.1-18.0); Lymphocytes # 2.4 K/mm3 (0.7-4.5); Lymphocytes % 32.6 % (10-50); Mean Corpuscular HGB Conc 31.9 g/dL (31.8-35.4); Mean Corpuscular Hemoglobin 30.2 pg (27.0-31.2); Mean Corpuscular Volume 94.8 fl (80-94); Mean Platelet Volume 7.9 fl (7.4-10.4); Monocytes # 0.6 K/mm3 (0.1-1.0); Monocytes % 8.4 % (1.7-9.3); Neutrophils % 54.7 % (37.0-80.0); Platelet Count 259 K/mm3 (142-424); Red Blood Count 4.82 M/mm3 (4.60-6.20); Red Cell Distribution Width 15.3 % (11.5-17.5); White Blood Count 7.2 K/mm3 (4.8-10.8)
[2022-09-19 12:57] LABS: Alanine Aminotransferase 63 U/L (12-78); Albumin/Globulin Ratio 1.8 (1.1-1.8); Alkaline Phosphatase 148 U/L (38-126); Anion Gap 15.9 mEq/L (5-15); Aspartate Amino Transferase 56 U/L (17-59); Bilirubin,Total 0.3 mg/dl (0.2-1.3); Blood Urea Nitrogen 25 mg/dl (9-20); Calcium 9.6 mg/dl (8.4-10.2); Carbon Dioxide 26 mmol/L (22.0-30.0); Chloride 107 mmol/L (98-107); Estimated Glomerular Filt Rate 74 ml/min (>60); GFR (African American) 90 ML/MIN (>60); Globulin 2.8 g/dL (1.3-3.2); Glucose 102 mg/dl (74-100); Potassium 4.9 mmoL/L (3.5-5.1); Sodium 144 mmol/L (136-145); Total Protein,Serum 7.8 g/dl (6.3-8.2)
== END ==
PROVIDERS: PCP Internal Medicine; Visit Provider Internal Medicine
DX: N20.0 Calculus of kidney (principal)
CPT/HCPCS: 36415; 74176; 80053; 85025

== ENCOUNTER → 2022-09-19 15:00 | Outpatient (CLI) | payer MEDICARE, SELFPAY | PROVIDERS: PCP Nurse Practitioner Family; Visit Provider Internal Medicine | DX: N20.0 Calculus of kidney (principal) ==

== ENCOUNTER → 2022-12-24 14:10 | Outpatient (CLI) | payer MEDICARE, SELFPAY ==
[2022-12-24 14:40] LABS: Chol/HDL Ratio 2.6 (1-3.5); Cholesterol 152 mg/dl (140-200); HDL Cholesterol 59 mg/dl (40-60); Triglycerides 183 mg/dl (30-150); VLDL Cholesterol 37 mg/dL (0-40)
[2022-12-24 14:51] LABS: Direct LDL Cholesterol 66.08 mg/dL (100-129)
[2022-12-24 14:58] LABS: 25-OH Vitamin D, Total 85.3 ng/mL (30-100); Free T4 (Free Thyroxine) 0.99 ng/dl (0.78-2.19)
[2022-12-24 15:13] LABS: Thyroid Stimulating Hormone 3.16 uIU/mL (0.465-4.68)
== END ==
PROVIDERS: PCP Internal Medicine; Visit Provider Internal Medicine
DX: E55.9 Vitamin D deficiency, unspecified (principal); E78.2 Mixed hyperlipidemia; Z13.29 Encounter for screening for other suspected endocrine disorder; Z13.220 Encounter for screening for lipoid disorders; Z68.32 Body mass index [BMI] 32.0-32.9, adult
CPT/HCPCS: 80061; 82306; 84439; 84443

== ENCOUNTER → 2023-01-20 07:35 | Outpatient (CLI) | payer MEDICARE, SELFPAY | PROVIDERS: PCP Internal Medicine; Visit Provider Internal Medicine | DX: L02.91 Cutaneous abscess, unspecified (principal); B96.89 Other specified bacterial agents as the cause of diseases classified elsewhere | CPT/HCPCS: 87070; 87205 ==

== ENCOUNTER 2023-05-07 01:25 | Emergency (ER) | payer MEDICARE, SELFPAY ==
[2023-05-07 01:28] VITALS: BP 127/85; PULSE 80; RESP 24; TEMP 36.6; O2SAT 97; BMI 32.3
--- NOTE | 2023-05-07 01:36 | HMH.EDGENADL ---
Discharge Plan Disposition Patient Disposition: Home, Self-Care Prescriptions Prescriptions: New ondansetron HCl 4 mg tablet 4 mg PO Q8H PRN (Reason: nausea and vomiting) 5 Days Qty: 30 0RF oxycodone 5 mg tablet 5 mg PO Q8H PRN (Reason: pain) Qty: 12 0RF No Action nitroglycerin 0.4 mg tablet, sublingual 0.4 mg SUBLINGUAL Q5M PRN (Reason: chest pain) Qty: 20 0RF Rx Instructions: do not exceed 3 doses per episode allopurinol 300 mg tablet 300 mg PO DAILY Qty: 90 3RF aspirin 81 mg tablet,delayed release (DR/EC) 81 mg PO DAILY Qty: 90 2RF atorvastatin 10 mg tablet See Rx Instructions .ROUTE .COMPLEX Qty: 90 3RF Dose Instruction: TAKE 1 TABLET BY MOUTH ONCE A DAY FOR CHOLESTEROL Rx Instructions: TAKE 1 TABLET BY MOUTH ONCE A DAY FOR CHOLESTEROL levothyroxine [Synthroid] 75 mcg tablet 75 mcg PO DAILY Qty: 90 2RF metoprolol succinate 50 mg tablet extended release 24 hr 50 mg PO BID Qty: 180 3RF doxycycline hyclate 100 mg capsule 100 mg PO BID Qty: 14 0RF diclofenac sodium 75 mg tablet,delayed release (DR/EC) 75 mg PO BID sildenafil 25 mg tablet 25 mg PO DAILY PRN (Reason: sexual activity) Qty: 30 1RF Rx Instructions: administer 30 minutes to 4 hours before activity Referrals Follow up/Referrals: Edson Lino DO [Primary Care Provider] - See instructions Activity Restrictions/Add. Instructions Additional Instructions/Restrictions: Please take Tylenol and ibuprofen as needed for pain. Please take Zofran as needed for nausea. Please take oxycodone as needed for severe pain. Please follow-up with urology. Please return for development of fever or unrelenting symptoms. Clinical Impressions Clinical Impression: Calculus of distal left ureter Hydronephrosis Qualifiers: Hydronephrosis type: with ureteral calculous obstruction Qualified Code(s): N13.2 - Hydronephrosis with renal and ureteral calculous obstruction Instructions Patient Instructions: DI for Low Back Pain Discharge ED Provider: Augustin Domingo General Adult HPI General Chief complaint: Back Pain/Injury Stated complaint: hist of kidney stones,vomit,unable to urinate Time Seen by Provider: 05/07/23 01:35 History of Present Illness HPI narrative: 67-year-old male with history of hypertension, chronic kidney stones presents with concern for kidney stone. He reports approximately 2 days of worsening left back and flank pain. Reports dark urine as well. He has had to have multiple stents in the past. Denies any fever or chills or other infectious symptoms. He reports his pain and nausea have worsened significantly and so presents to the ER. He sees a urologist with the [facility]. Related Data Home Medications Medication Instructions Recorded Confirmed diclofenac sodium 75 mg 75 mg PO BID 07/23/22 01/20/23 tablet,delayed release Previous Rx's Medication Instructions Recorded nitroglycerin 0.4 mg sublingual 0.4 mg sublingual Q5M PRN chest 06/06/21 tablet pain #20 tabs sildenafil 25 mg tablet 25 mg PO DAILY PRN sexual activity 07/23/22 #30 tabs allopurinol 300 mg tablet 300 mg PO DAILY gout #90 tabs 12/24/22 aspirin 81 mg tablet,delayed 81 mg PO DAILY HEART HEALTH #90 12/24/22 release tabs atorvastatin 10 mg tablet See Rx Instructions .Route 12/24/22 .COMPLEX #90 tabs levothyroxine 75 mcg tablet 75 mcg PO DAILY thyroid #90 tabs 12/24/22 (Synthroid) metoprolol succinate 50 mg 50 mg PO BID HTN #180 tabs 12/24/22 tablet,extended release 24 hr doxycycline hyclate 100 mg capsule 100 mg PO BID #14 caps 01/13/23 ondansetron HCl 4 mg tablet 4 mg PO Q8H PRN nausea and 05/07/23 vomiting 5 days #30 tabs oxycodone 5 mg tablet 5 mg PO Q8H PRN pain #12 tabs 05/07/23 Allergies Allergy/AdvReac Type Severity Reaction Status Date / Time amlodipine Allergy Severe Angioedema Verified 01/20/23 14:54 lisinopril Allergy Severe angioedema Verified 01/20/23 14:54 tamsulosin [From Flomax] Allergy Verified 01/20/23 14:54 hydrochlorothiazide AdvReac Mild GOUT Verified 01/20/23 14:54 [facility] Disclaimer: The information contained in this section may have been updated after the patient was seen, as this information can be updated by other users. Medical History BMI 32.0-32.9,adult CAD (coronary artery disease) of artery bypass graft Elevated alkaline phosphatase level Guaiac + stool High blood pressure High cholesterol History of thyroid cancer Hx of myocardial infarction Lumbar radicular syndrome Sebaceous cyst Surgical History H/O colonoscopy with polypectomy H/O thyroidectomy History of cholecystectomy Hx of repair of left rotator cuff and torn bicep repair Rotator cuff arthropathy of right shoulder Family History Father , 64 [place] Heart attack Brother , 65 [place] Heart attack Social History Smoking Status: Current some day smoker tobacco type: cigars alcohol intake: current substance use type: marijuana current occupational status: retired Travel in the last 8 weeks: None household members: spouse housing: house marital status: number of children: 4 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 caffeine: Yes ROS Obtained: Yes All systems reviewed & no additional complaints except as documented Physical Exam General General appearance: alert and in distress Head Head exam: atraumatic and normocephalic Eye Eye exam: Present normal appearance, PERRL and EOMI ENT ENT exam: Present normal oropharynx and normal external ear exam Neck Neck exam: Present normal inspection and full ROM Chest Chest inspection: Present normal inspection and symmetric chest wall rise; Absent tenderness Respiratory Respiratory exam: Present normal lung sounds bilaterally; Absent respiratory distress Cardiovascular Cardiovascular exam: Present regular rate and normal rhythm Abdominal Exam Abdominal exam: Present soft; Absent distention, tenderness or guarding Extremities Exam Extremities exam: Present normal inspection; Absent edema or joint swelling Back Exam Back exam: Present normal inspection and CVA tenderness (L) Neurological Exam Neurological exam: Present alert and oriented X3; Absent motor sensory deficit Psychiatric Psychiatric exam: Present normal affect and normal mood Skin Skin exam: Present warm, dry and normal color Lymphatic Lymphatic Findings: no adenopathy Medical Decision Making Medical Records Medical records reviewed: Yes I reviewed the patient's medical records. Rogelio Inquiry Pt receiving controlled substance: No Rogelio was queried for this patient: No Vital Signs: 05/07/23 01:28 Temperature 97.9 F Temperature Source Oral Pulse Rate [Left] 80 Respiratory Rate 24 Blood Pressure [Right Arm] 127/85 Blood Pressure Mean [Right Arm] 99 02 Sat by Pulse Oximetry 97 Oxygen Delivery Method Room Air Lab Data Lab results reviewed: Yes I reviewed the patient's lab results. Lab Results 05/07/23 01:52: WBC 9.4, RBC 4.26 L, Hgb 14.1, Hct 43.9, MCV 103.1 H, MCH 33.0 H, MCHC 32.0, RDW 13.7, Plt Count 259, MPV 9.0, Neut % (Auto) 78.0, Lymph % (Auto) 14.9, Pepin % (Auto) 5.4, Eos % (Auto) 0.3, Baso % (Auto) 1.5, Neut # (Auto) 7.3, Lymph # (Auto) 1.4, Pepin # (Auto) 0.5, Eos # (Auto) 0.0, Baso # (Auto) 0.1, Sodium 131 L, Potassium 4.4, Chloride 100, Carbon Dioxide 25, Anion Gap 10.4, BUN 25 H, Creatinine 1.00, Estimated Creat Clear 110, Estimated GFR 74, Est GFR ( Amer) 90, Glucose 119 H, Calcium 9.0, Total Bilirubin 0.5, AST 60 H, ALT 62, Alkaline Phosphatase 144 H, Total Protein 7.2, Albumin 4.4, Globulin 2.8, Albumin/Globulin Ratio 1.6 05/07/23 02:29: Urine Color Liv, Urine Appearance Cloudy, Urine pH 6.0, Ur Specific [place] 1.025, Urine Protein 2+, Urine Glucose (UA) Negative, Urine Ketones Negative, Urine Blood 3+, Urine Nitrate Negative, Urine Bilirubin 1+ A, Urine Urobilinogen 0.2, Ur Leukocyte Esterase Negative, Urine RBC Tntc, Urine WBC None, Ur Squamous Epith Cells Occasional, Urine Bacteria 1+ 05/07/23 01:52 05/07/23 01:52 Orders (Tests/Meds): ED MEDICATIONS Generic Name Dose Route Start Last Admin Trade Name Freq PRN Reason Stop Dose Admin Oxycodone HCl 5 mg 05/07/23 03:05 05/07/23 03:07 Oxycodone 5mg Immediate Release Tablet PO 05/07/23 03:06 5 mg ONCE ONE Administration Discontinued Medications Generic Name Dose Route Start Last Admin Trade Name Freq PRN Reason Stop Dose Admin Acetaminophen 1,000 mg 05/07/23 01:50 05/07/23 01:57 Acetaminophen 500mg Tab PO 05/07/23 01:51 1,000 mg ONCE ONE Administration Lactated Ringer's 1,000 mls @ 999 mls/hr 05/07/23 02:00 05/07/23 01:58 Lactated Ringer's 1000 Ml Bag IV 05/07/23 03:00 999 mls/hr .Q1H1M JANIA Administration Ketorolac Tromethamine 30 mg 05/07/23 01:50 05/07/23 01:57 Ketorolac 30mg/Ml Vial IV 05/07/23 01:51 30 mg ONCE ONE Administration Morphine Sulfate 4 mg 05/07/23 01:50 05/07/23 01:57 Morphine 4mg/Ml Syringe IV 05/07/23 01:51 4 mg ONCE ONE Administration Ondansetron HCl 4 mg 05/07/23 01:50 05/07/23 01:57 Ondansetron 4mg/2ml Vial IV 05/07/23 01:51 4 mg ONCE ONE Administration ORDERS Category Date Time Status CT abdomen pelvis wo con Stat Cat Scan 05/07/23 01:50 Completed CBC w/Auto Diff [Complete Blood Count Auto Diff] Stat Lab 05/07/23 01:52 Completed CMP [Comprehensive Metabolic Panel] Stat Lab 05/07/23 01:52 Completed UA [Urinalysis and Microscopic] Stat Lab 05/07/23 02:29 Completed Medical Decision Narrative: 67-year-old male with history of recurrent kidney stones presents with left flank pain and dark urine for the last couple of days. History was obtained interactive discussion with patient, chart review family. On arrival, patient is [afebrile, hemodynamically stable, satting appropriately, alert, oriented x4, GCS 15], moving all extremities spontaneously. Full physical exam performed and significant for left flank tenderness, patient uncomfortable secondary to pain Differential includes but is not limited to ureterolithiasis, UTI, septic stone, aortic pathology. Patient was given 4 mg IV Zofran, 4 mg IV morphine, p.o. Tylenol, 1 L fluid bolus for symptomatic management and correction of underlying abnormalities. Workup initiated including CBC CMP UA CT abdomen and pelvis without contrast. On re-evaluation, patient [remains afebrile, HD stable.] Reports marked symptomatic improvement. Laboratory workup independently interpreted by me and significant for normal renal function, mild hyponatremia. Urinalysis shows too numerous to count red blood cells, negative nitrate, no WBCs, 1+ bacteria. In this context, I do not think this is consistent with a urinary tract infection.. Imaging independently interpreted by me and significant for 5 mm left ureteral stone at the UVJ. See radiology read for full review of final results. Admission for pain control and/or transfer for definitive management was considered, but deemed unnecessary due to history exam and imaging findings. Given patient history, exam and workup, patient's presentation most likely represents left obstructive ureterolithiasis without acute infection. These findings were communicated with patient. He was given strict return precautions including for development of fever or uncontrollable symptoms. He will follow-up with his urologist. Patient was discharged with prescription for oxycodone and Zofran. It is unclear as to whether or not the oxycodone prescription went through to his pharmacy. I told the patient to call the ER for the prescription if it did not go through when he goes to pick it up. Recommended he take Tylenol and ibuprofen as needed for pain as well. Procedures Risk/Benefits of Procedure(s) Were Explained: Yes Critical Care Critical Care Time Critical Care Time: No
--- NOTE | 2023-05-07 01:50 | CT_ITS ---
PROCEDURE INFORMATION: Exam: CT Abdomen And Pelvis Without Contrast Exam date and time: 05/07/2023 2:00 AM Age: 67 years old Clinical indication: Abdominal pain; Flank; Left; Additional info: Left flank pain, hematuria, HX stones TECHNIQUE: Imaging protocol: Computed tomography of the abdomen and pelvis without contrast. Radiation optimization: All CT scans at this facility use at least one of these dose optimization techniques: automated exposure control; mA and/or kV adjustment per patient size (includes targeted exams where dose is matched to clinical indication); or iterative reconstruction. COMPARISON: 1. CT ABDOMEN PELVIS WO CON 09/19/2022 12:[address] ABDOMEN PELVIS WO CON 06/17/2021 9:[address] ABDOMEN PELVIS WO CON 07/29/2020 2:27 AM FINDINGS: Lungs: Scattered areas of bronchial wall thickening which are likely chronic inflammatory. A few areas of subpleural reticulation are noted, nonspecific. Liver: There is diffuse fatty infiltration throughout the liver. Gallbladder and bile ducts: The patient is status post cholecystectomy. Pancreas: Normal. Spleen: Normal. Adrenal glands: The adrenal glands appear normal. Kidneys and ureters: There are nonobstructing bilateral intrarenal calculi. Moderate left hydroureteronephrosis extending to the left UVJ where there is a 5 mm calculus (image 99 series 3). Left-sided perinephric stranding may reflect obstructive uropathy. Stomach and bowel: There are scattered colonic diverticula without evidence for active diverticulitis. Appendix: No evidence of appendicitis. Intraperitoneal space: Unremarkable. Vasculature: There is atherosclerotic disease of the visualized aorta and its major branch vessels. Lymph nodes: No lymphadenopathy. Urinary bladder: Unremarkable as visualized. Reproductive: No acute process. Bones/joints: There is surgical hardware within the lumbar spine. There is diffuse degenerative disease of the visualized osseous structures. Soft tissues: Laxity of the ventral abdominal wall consistent with diastasis recti. IMPRESSION: 1. Moderate left hydroureteronephrosis extending to the left UVJ where there is a 5 mm calculus (image 99 series 3). 2. Hepatic steatosis.
[2023-05-07] MEDS: ACETAMINOPHEN 500MG TAB 1000 MG PO (01:57)
[2023-05-07] MEDS: ONDANSETRON 4MG/2ML VIAL 4 MG IV (01:57)
[2023-05-07] MEDS: KETOROLAC 30MG/ML VIAL 30 MG IV (01:57)
[2023-05-07] MEDS: MORPHINE 4MG/ML SYRINGE 4 MG IV (01:57)
[2023-05-07] MEDS: LACTATED RINGERS 1000ML 1,000 ML 999 ML IV (01:58)
[2023-05-07 02:02] LABS: Chloride 100 mmol/L (98-107); Sodium 131 mmol/L (136-145)
[2023-05-07 02:03] LABS: Potassium 4.4 mmoL/L (3.5-5.1)
[2023-05-07 02:05] LABS: Alanine Aminotransferase 62 U/L (12-78); Albumin Level 4.4 g/dl (3.5-5.0); Albumin/Globulin Ratio 1.6 (1.1-1.8); Alkaline Phosphatase 144 U/L (38-126); Anion Gap 10.4 mEq/L (5-15); Aspartate Amino Transferase 60 U/L (17-59); Bilirubin,Total 0.5 mg/dl (0.2-1.3); Blood Urea Nitrogen 25 mg/dl (9-20); Carbon Dioxide 25 mmol/L (22.0-30.0); Creatinine Clearance Estimated 110 mL/min (50-200); Estimated Glomerular Filt Rate 74 ml/min (>60); GFR (African American) 90 ML/MIN (>60); Globulin 2.8 g/dL (1.3-3.2); Total Protein,Serum 7.2 g/dl (6.3-8.2)
[2023-05-07 02:06] LABS: Glucose 119 mg/dl (74-100)
[2023-05-07 02:19] LABS: Basophils # 0.1 K/mm3 (0-0.2); Basophils % 1.5 % (0.1-2.0); Eosinophils % 0.3 % (0.1-12.0); Hematocrit 43.9 % (42.0-52.0); Hemoglobin 14.1 g/dL (14.1-18.0); Lymphocytes # 1.4 K/mm3 (0.7-4.5); Lymphocytes % 14.9 % (10-50); Mean Corpuscular Volume 103.1 fl (80-94); Monocytes # 0.5 K/mm3 (0.1-1.0); Monocytes % 5.4 % (1.7-9.3); Neutrophils # 7.3 K/mm3 (1.8-7.8); Platelet Count 259 K/mm3 (142-424); Red Blood Count 4.26 M/mm3 (4.60-6.20); Red Cell Distribution Width 13.7 % (11.5-17.5); White Blood Count 9.4 K/mm3 (4.8-10.8)
[2023-05-07 02:33] LABS: Blood, Urine 3+ (Negative); Glucose,Urine (UA) Negative (Negative); Ketones,Urine Negative (Negative); Leukocyte Esterase,Urine Negative (Negative); Microscopic, Urine URINE MICROSCOPIC (MICROSCOPIC); Nitrate,Urine Negative (Negative); Protein,Urine 2+ (Negative); Specific Gravity, Urine 1.025 (1.005-1.030); Urobilinogen,Urine 0.2 EU/dl (0.2)
[2023-05-07 02:34] LABS: Appearance,Urine Cloudy (Clear); Bilirubin,Urine 1+ (Negative); Color,Urine Amber (Yellow)
[2023-05-07 02:45] LABS: RBC,Urine TNTC #/hpf (0-3); Squamous Epithelial Cell,Urine Occasional #/hpf (0-5)
[2023-05-07 02:46] LABS: Bacteria,Urine 1+ /lpf
[2023-05-07 03:00] VITALS: BP 122/76; PULSE 66; RESP 20; O2SAT 96
[2023-05-07] MEDS: OXYCODONE 5MG IMMEDIATE RELEASE TABLET 5 MG PO (03:07)
[2023-05-07 03:16] VITALS: BP 111/64; PULSE 68; RESP 20; TEMP 36.6; O2SAT 97
[2023-05-07 03:20] VITALS: BP 134/89; PULSE 69; RESP 20; O2SAT 96
== END 2023-05-07 03:22 | disposition home or self-care (01) ==
PROVIDERS: Emergency Provider Emergency Medicine; PCP Internal Medicine
DX: N13.2 Hydronephrosis with renal and ureteral calculous obstruction (principal); M54.9 Dorsalgia, unspecified; R11.2 Nausea with vomiting, unspecified; I12.9 Hypertensive chronic kidney disease with stage 1 through stage 4 chronic kidney disease, or unspecified chronic kidney disease; N18.9 Chronic kidney disease, unspecified; I25.810 Atherosclerosis of coronary artery bypass graft(s) without angina pectoris; E78.00 Pure hypercholesterolemia, unspecified; I25.2 Old myocardial infarction; F17.200 Nicotine dependence, unspecified, uncomplicated; Z85.850 Personal history of malignant neoplasm of thyroid; E87.1 Hypo-osmolality and hyponatremia
CPT/HCPCS: 74176; 80053; 81001; 85025; 96361; 96374; 96375; 99285; J2405

== ENCOUNTER 2023-06-22 11:10 | Outpatient (CLI) | payer MEDICARE, SELFPAY ==
[2023-06-22 12:50] LABS: Blood Urea Nitrogen 25 mg/dl (9-20); Estimated Glomerular Filt Rate 96 ml/min (>60); GFR (African American) 116 ML/MIN (>60)
== END 2023-06-22 23:59 | disposition home or self-care (01) ==
LOC: LAB 11:11
PROVIDERS: PCP Internal Medicine; Visit Provider Internal Medicine
DX: I25.810 Atherosclerosis of coronary artery bypass graft(s) without angina pectoris (principal)
CPT/HCPCS: 36415; 82565; 84520

== ENCOUNTER 2023-06-25 09:35 | Outpatient (CLI) | payer MEDICARE, SELFPAY ==
[2023-06-24 14:28] VITALS: BMI 31.6
[2023-06-25] VITALS (9 sets, daily range): BP systolic 98–155; BP diastolic 66–99; PULSE 56–66; RESP 15–18; TEMP 36.6; O2SAT 94–98; BMI 31.6
--- NOTE | 2023-06-25 09:35 | CT_ITS ---
APPROVED REPORT Land Leveler: CLINICAL INDICATION Chest Pain TECHNIQUE Image Acquisition: A 128 slice MDCT scanner ([employer] View) was used for data acquisition. A noncontrast coronary calcium scan was performed. A CT attenuation threshold of 130 Hounsfield units (HU) was used for the detection of calcium in contiguous voxels of 1 sq mm in area to be counted as individual lesions. Bolus tracking in the ascending aorta with a threshold of 180 HU was performed. Immediately afterwards, ECG synchronized cardiac CT was then performed from the cardiac base to apex using retrospective gating with ECG tube current modulation. A total of 85 mL of Isovue 370 mg/mL contrast medium was administered at 5 mL/sec followed by a saline flush using a biphasic injection protocol. A tube voltage of 120 KVp was used. The patient received the following medications prior to the cardiac CT. 0.8 mg of sublingual nitroglycerin The average heart rate at the time of acquisition was 59 bpm and regular. Image Reconstruction Transaxial images were reconstructed at 0.67 mm slide thickness. Data was reviewed interactively on an advanced workstation capable of 2 and 3-dimensional displays in all conventional reconstruction formats, including multiplanar reformations, maximum intensity projections, curved multiplanar reformations, and volume rendered reconstructions. When applicable, selected routine images describing the relevant coronary anatomy and pathology were saved and sent to PACS. Complications None Technical Quality Overall image quality was good. Coronary artery opacification was adequate. Total DLP (Dose-Length Product) is 1151.7 mGy-cm. The reported value represents the total of one or more individual components during the CT acquisition of this date and at this time, and as such, the same value may appear in more than one CT report depending on the interpreting/reporting physicians. COMPARISON None FINDINGS CT Coronary Calcium Scoring LMA (Left Main Artery) = 0 LAD (Left Anterior Descending) = 832 LCX (Left Coronary Circumflex) = 20 RCA (Right Coronary Artery) = 0 Total Calcium Score = 852 using the AJ-130 method. The observed calcium score of 852 is at 84th percentile for subjects of the same age, sex, and race/ethnicity. The interpretation of the calcium heart score is based on the following continuum*: 0 = no calcified plaque detected (risk of coronary artery disease is very low ??? less than 5%) 1-10 = calcium detected in extremely minimal levels (risk of coronary diseases is still low ??? less than 10%) 11-100 = mild levels of plaque detected with certainty (mild or minimal narrowing of heart arteries is likely) 101-400 = definite,at least moderate levels of plaque detected (relatively high risk of a heart attack within 3-5 years) >401-999 = extensive levels of plaque detected (high risk of heart attack, high levels of vascular disease are present, high likelihood of at least one significant coronary narrowing) *The calcium heart score quantifies the burden of coronary calcification/plaque in the coronary arteries. The calcium heart score is not able to evaluate the presence or burden of non-calcified (i.e. soft) plaque. There is no identifiable calcification in the aortic valve, mitral annulus or mitral valve, pericardium, or myocardium. Coronary CT Angiography The coronary arterial system is right dominant. Quantitative Stenosis Grading: Left Main (LM): The left main originates normally from the left sinus of Valsalva. The LM trifurcates into the left anterior descending artery, ramus intermedius, and left circumflex artery. The LM is patent with no evidence of atherosclerosis. Left Anterior Descending (LAD) and Diagonal Branches: The LAD gives off 2 diagonal branch(es). There is mixed calcified/noncalcified plaque noted in the proximal and mid LAD, with up to 70-90% luminal stenosis. There is no evidence of LAD-myocardial bridge. Ramus-intermedius (RI): The RI is patent. Left Circumflex (LCX) and Obtuse Marginals (OM): The LCX gives off 1 Obtuse Marginal (OM) branch(es). There is calcified plaque noted in the proximal LCx, with no luminal stenosis. Right Coronary Artery (RCA): The RCA originates normally from the right sinus of Valsalva. The RCA gives off a posterior descending artery (PDA) and posterolateral (PL) branches. The RCA and its branches are patent with no evidence of atherosclerosis. Non-Coronary Cardiac Findings: Analysis of the left ventricular (LV) structure and function was performed after 3-D reconstruction of the LV from axial images, with user-corrected automatic contouring for assessment of LV volumes and user-defined reconstruction from oblique planes for measurement of 3-D cardiac structure and function. -The left ventricle systolic function is normal. -There is no left atrial appendage filling defect. Two right pulmonary veins and two left pulmonary veins drain normally into the left atrium. -No pericardial thickening or calcification. -Central and branch pulmonary arteries in the [id number] are unremarkable. -Thoracic aorta within the visualized thoracic aortic-branches in the [id number] is unremarkable. Extracardiac Structures No significant extra-cardiac findings. Note, however, that this study is focused on the cardiac findings. IMPRESSION -Presence of coronary calcification with an Agatston score = 852 using the AJ-130 method. -The observed calcium score of 852 is at 84th percentile for subjects of the same age, sex, and race/ethnicity. -Presence of possible significant flow-limiting atherosclerosis of the coronary arteries in the proximal/mid LAD segment. -CAD-RADS 4A. Management recommendations per ACC/AHA guidelines*, as clinically appropriate. *Recommendations: CAD RADS 0: Reassurance. Consider non-atherosclerotic causes of chest pain. CAD RADS 1: Consider non-atherosclerotic causes of chest pain. Consider preventive therapy and risk factor modification. CAD RADS 2: Consider non-atherosclerotic causes of chest pain. Consider preventive therapy and risk factor modification, particularly for patients with nonobstructive plaque in multiple segments. CAD RADS 3: Consider further functional testing. Consider symptom-guided anti-ischemic and preventive pharmacotherapy as well as risk factor modification per published guideline statements. CAD RADS 4A: Consider further functional testing or invasive coronary angiography with revascularization per published guideline statements. Consider symptom-guided anti-ischemic and preventive pharmacotherapy as well as risk factor modification per published guideline statements. CAD RADS 4B: Invasive coronary angiography recommended with revascularization per published guideline statements. Consider symptom-guided anti-ischemic and preventive pharmacotherapy as well as risk factor modification per published guideline statements. CAD RADS 5: Consider invasive angiography and/or viability assessment with revascularization per published guideline statements. Consider symptom-guided anti-ischemic and preventive pharmacotherapy as well as risk factor modification per published guideline statements. CRITICAL RESULT None COMMUNICATION Per this written report The coronary and cardiac findings of this CCTA were reviewed, reported, and signed by Sesar Boggs MD (Waterproofer) Conclusion Electronically signed by : Marycarmen Boggs MD 07/01/2023 12:02:56
[2023-06-25] MEDS: NITROGLYCERIN 0.4MG SL TABLET 0.400000000000000022 MG SL (10:10)
[2023-06-25] MEDS: METOPROLOL TARTRATE 5MG/5ML VIAL 5 MG IV (10:22)
[2023-06-25] MEDS: IOPAMIDOL-370 (76%);100ML BOTTLE 85 ML IV (10:27)
[2023-06-25] MEDS: 0.9 % SODIUM CHLORIDE 50 ML VIAL 45 ML IV (10:27)
== END 2023-06-25 10:53 | disposition home or self-care (01) ==
PROVIDERS: PCP Internal Medicine; Visit Provider Physician Assistant
DX: I11.9 Hypertensive heart disease without heart failure (principal); I25.810 Atherosclerosis of coronary artery bypass graft(s) without angina pectoris; E78.2 Mixed hyperlipidemia; I25.2 Old myocardial infarction; F17.290 Nicotine dependence, other tobacco product, uncomplicated
CPT/HCPCS: 75571; 75574; Q9967

== ENCOUNTER 2023-07-06 09:25 | Outpatient (CLI) | payer MEDICARE, SELFPAY ==
--- NOTE | 2023-07-06 09:25 | CA_ITS ---
APPROVED REPORT EXAM: Comprehensive 2D, Doppler, and color-flow Echocardiogram [employer] Education Math Teacher: Sindhu Mckeon RDCS Ht: 6 ft 1 in Wt: 244lbs BSA: 2.34 BP: 148/98 mmHg Indications: CP,ABN EKG,CAD M-Mode Dimensions RVDd 2.65 cm (0.9-2.6) LA Diam 2.74 cm (1.9-4.0) LVDd 5.66 cm (3.5-5.7) LVDs 4.13 cm (3.5-5.7) IVSd 0.72 cm (0.6-1.1) PWd 0.80 cm (0.6-1.1) EF (Teich) 52.10% FS 27.00% EDV (Teich) 157.50 mL ESV (Teich) 75.50 mL LV Diastology E Decel Time 303 (160-240 msec) E/A Ratio 0.5 Mitral Valve MV E Max Donald. 34.0 (40-130 cm/s) MV A Velocity 66.0 (40-130 cm/s) E/A Ratio 0.51 MV PHT 89.0 ms Left Ventricle The left ventricle is normal size. The left ventricular systolic function is normal. The left ventricular ejection fraction is within the normal range. There is increased LV wall thickness. There is normal LV segmental wall motion. The left ventricular diastolic function is normal. LVEF is 60%. Right Ventricle The right ventricle is mildly dilated. The right ventricular systolic function is normal. Atria The left atrium size is normal. The right atrium size is normal. There is no Doppler evidence of interatrial shunt. Aortic Valve The aortic valve is mildly thickened. Trace aortic regurgitation. There is no aortic valvular stenosis. Mitral Valve The mitral valve is normal in structure. No evidence of mitral valve stenosis. Trace mitral regurgitation. Tricuspid Valve The tricuspid valve leaflets are thin and pliable. Trace tricuspid regurgitation. RVSP is normal. Pulmonic Valve The pulmonary valve is normal in structure. Trace pulmonic regurgitation. Great Vessels The aortic root is normal in size. The ascending aorta is not well-visualized. The IVC is not well-visualized. Pericardium There is no pericardial effusion. Other Information Study Quality: Technically Difficult Conclusion Technically difficult study due to poor acoustic windows. Normal biventricular systolic function. Mild RV dilation. No significant valvular stenosis or regurgitation. Electronically signed by : Marycarmen Boggs MD 07/06/2023 13:57:45
== END 2023-07-06 23:59 | disposition home or self-care (01) ==
LOC: RT 09:25
PROVIDERS: PCP Internal Medicine; Visit Provider Physician Assistant
DX: I10 Essential (primary) hypertension (principal); I25.810 Atherosclerosis of coronary artery bypass graft(s) without angina pectoris; E78.2 Mixed hyperlipidemia; I25.2 Old myocardial infarction; R06.02 Shortness of breath; F17.290 Nicotine dependence, other tobacco product, uncomplicated
CPT/HCPCS: 93306

== ENCOUNTER 2023-07-09 08:49 | Day surgery (SDC) | payer MEDICARE, SELFPAY ==
[2023-07-09] VITALS (12 sets, daily range): BP systolic 107–155; BP diastolic 60–93; PULSE 51–65; RESP 15–18; TEMP 36.9; O2SAT 96–100; BMI 31.6
--- NOTE | 2023-07-09 07:08 | IR_ITS ---
APPROVED REPORT Patient Location: Outpatient PROCEDURES Left heart catheterization Left ventriculogram Selective coronary angiogram Drug-eluting stent deployment to the mid LAD INDICATION Coronary artery disease, Abnormal CCTA, Angina pectoris Informed consent was obtained prior to the procedure. COMPLICATIONS NONE Estimated Blood Loss: LESS THAN 10 ML TECHNIQUE One percent lidocaine used to anesthetize the right anterior aspect of the wrist. The right radial artery was accessed via the Seldinger technique. A 6 Nepali sheath was placed in the right radial artery. 2.5 mg of Verapamil, 800 mcg of nitroglycerin, 1mg Lidocaine and 5000 U Heparin were given through the arterial sheath. The papa catheter was also used to perform left heart catheterization, left ventriculogram and selective coronary angiogram. At the end of the diagnostic angiogram therapeutic heparin was administered giving a therapeutic ACT and the guide catheter was placed in left main artery followed by Choice PT extra-support wire down the LAD. A 2.5 x 22 mm [place] frontier stent was deployed at 26 amparo reducing the severe stenosis to 0%. FED[place]ICA-3 flow was present before and after the procedure. At the end the procedure the apparatus was removed the sheath was removed and hemostasis was achieved using TR banding patient transferred to the postop putting in stable condition ANGIOGRAPHIC RESULTS The left main artery Normal The left anterior descending artery Has proximal and mid vessel 20 to 30% stenosis with a focal concentric 80% calcified mid vessel stenosis The circumflex artery Large co-dominant with 10% luminal irregularities The right coronary artery Large codominant with FEDERICA II flow throughout and no demonstrable angiographic stenosis The [place] ventriculogram reveals Preserved 60% The left ventricular end-diastolic pressure 15 mmHg IMPRESSION Severe mid LAD stenosis as described above Successful stent to the mid LAD severe disease reduced to 0% with 1 drug-eluting stent Slow flow down the right coronary consistent with endothelial dysfunction Normal ejection fraction Borderline LVEDP PLAN 1. Effient and aspirin 2. LDL less than 55 to achieve that high intensity statin 3. Avoidance of tobacco products 4. Risk factor modification 5. Cardiac rehabilitation Electronically signed by : Edson Wolf MD 07/09/2023 13:11:07
[2023-07-09 09:25] LABS: Basophils # 0.1 K/mm3 (0-0.2); Basophils % 1.6 % (0.1-2.0); Eosinophils # 0.2 K/mm3 (0.0-0.4); Eosinophils % 3.7 % (0.1-12.0); Hematocrit 47.8 % (42.0-52.0); Hemoglobin 15.7 g/dL (14.1-18.0); Lymphocytes # 1.8 K/mm3 (0.7-4.5); Lymphocytes % 28.8 % (10-50); Mean Corpuscular HGB Conc 32.8 g/dL (31.8-35.4); Mean Corpuscular Hemoglobin 32.6 pg (27.0-31.2); Mean Corpuscular Volume 99.6 fl (80-94); Mean Platelet Volume 8.2 fl (7.4-10.4); Monocytes # 0.4 K/mm3 (0.1-1.0); Monocytes % 5.9 % (1.7-9.3); Neutrophils # 3.7 K/mm3 (1.8-7.8); Neutrophils % 59.9 % (37.0-80.0); Platelet Count 260 K/mm3 (142-424); Red Cell Distribution Width 13.5 % (11.5-17.5); White Blood Count 6.1 K/mm3 (4.8-10.8)
[2023-07-09 09:34] LABS: Chloride 105 mmol/L (98-107); Sodium 142 mmol/L (136-145)
[2023-07-09 09:35] LABS: Potassium 4.3 mmoL/L (3.5-5.1)
[2023-07-09 09:37] LABS: Blood Urea Nitrogen 27 mg/dl (9-20); Creatinine Clearance Estimated 107 mL/min (50-200); Estimated Glomerular Filt Rate 96 ml/min (>60); GFR (African American) 116 ML/MIN (>60)
[2023-07-09 09:38] LABS: Anion Gap 13.3 mEq/L (5-15); Calcium 9.9 mg/dl (8.4-10.2); Carbon Dioxide 28 mmol/L (22.0-30.0); Glucose 119 mg/dl (74-100)
[2023-07-09] MEDS: HEPARIN 1,000 UNITS/500ML NS (CATH LAB) 3000 UNIT IV (11:31)
[2023-07-09] MEDS: 0.9 % SODIUM CHLORIDE 500 ML 25 ML IV (11:31)
[2023-07-09] MEDS: diphenhydrAMINE 50MG/ML VIAL 50 MG IV (11:32)
[2023-07-09] MEDS: VERAPAMIL 2.5MG/ML 2ML VIAL 2.5 MG IV (11:32)
[2023-07-09] MEDS: NITROGLYCERIN 800MCG/8ML SYR (CATH LAB) 800 MCG IA (11:32)
[2023-07-09] MEDS: LIDOCAINE 1% 10ML MDV 20 ML IJ (11:32)
[2023-07-09] MEDS: HEPARIN 1,000 UNITS/ML 10ML VIAL (CATH LAB) 10000 UNIT IV (11:32)
[2023-07-09] MEDS: FENTANYL 100MCG/2ML VIAL 25 MCG IV (12:23)
[2023-07-09] MEDS: MIDAZOLAM HCL 1MG/1ML 5ML VIAL 1 MG IV (12:23)
[2023-07-09] MEDS: PRASUGREL 10MG TAB 60 MG PO (12:37)
[2023-07-09] MEDS: IOPAMIDOL-370 (76%);100ML BOTTLE 90 ML IV (14:16)
[2023-07-09 14:19] LABS: CATHL Activated Clotting Time 380 SEC (74-125)
== END 2023-07-09 15:25 | disposition home or self-care (01) ==
PROVIDERS: PCP Internal Medicine; Visit Provider Internal Medicine
DX: I25.110 Atherosclerotic heart disease of native coronary artery with unstable angina pectoris (principal); I25.810 Atherosclerosis of coronary artery bypass graft(s) without angina pectoris; I10 Essential (primary) hypertension; E78.2 Mixed hyperlipidemia; I25.2 Old myocardial infarction; F17.210 Nicotine dependence, cigarettes, uncomplicated; Z79.899 Other long term (current) drug therapy
CPT/HCPCS: 80048; 85025; 85347; 92928; 93458; 99152; C1725; C1760; C1769; C1874; C9600; J1644; Q9967

== ENCOUNTER 2023-10-15 18:50 | Emergency (ER) | payer MEDICARE, SELFPAY ==
[2023-10-15 19:08] VITALS: BP 115/85; PULSE 72; RESP 18; TEMP 36.8; O2SAT 97; BMI 30.9
--- NOTE | 2023-10-15 19:11 | EXP.UTC ---
Discharge Plan Disposition Patient Disposition: Home, Self-Care Condition: Good Prescriptions Prescriptions: New Paxlovid 300 mg (150 mg x 2)-100 mg tablets,dose pack See Rx Instructions .ROUTE .COMPLEX Qty: 30 0RF Rx Instructions: take TWO 150 mg tablets of nirmatrelvir with ONE 100 mg tablet of ritonavir twice daily for 5 days dexamethasone 6 mg tablet 6 mg PO DAILY 6 Days Qty: 6 0RF promethazine-DM 6.25-15 mg/5 mL Syrup 5 ml PO Q6H PRN (Reason: Cough) Qty: 240 0RF ondansetron 4 mg Tablet,Disintegrating 4 mg PO Q8H PRN (Reason: Nausea) Qty: 8 0RF No Action nitroglycerin 0.4 mg tablet, sublingual 0.4 mg SUBLINGUAL Q5M PRN (Reason: chest pain) Qty: 20 0RF Rx Instructions: do not exceed 3 doses per episode aspirin 81 mg tablet,delayed release (DR/EC) 81 mg PO DAILY Qty: 90 2RF atorvastatin 10 mg tablet See Rx Instructions .ROUTE .COMPLEX Qty: 90 3RF Dose Instruction: TAKE 1 TABLET BY MOUTH ONCE A DAY FOR CHOLESTEROL Rx Instructions: TAKE 1 TABLET BY MOUTH ONCE A DAY FOR CHOLESTEROL levothyroxine [Synthroid] 75 mcg tablet 75 mcg PO DAILY Qty: 90 2RF doxycycline hyclate 100 mg capsule 100 mg PO BID Qty: 14 0RF diclofenac sodium 75 mg tablet,delayed release (DR/EC) 75 mg PO BID sildenafil 25 mg tablet 25 mg PO DAILY PRN (Reason: sexual activity) Qty: 30 1RF Rx Instructions: administer 30 minutes to 4 hours before activity hydrocodone-acetaminophen 7.5-325 mg tablet 7.5 tab PO DAILY prasugrel [Effient] 10 mg tablet 10 mg PO DAILY Qty: 90 3RF metoprolol succinate 50 mg tablet extended release 24 hr 50 mg PO BID Qty: 180 0RF allopurinol 300 mg tablet See Rx Instructions .ROUTE .COMPLEX Qty: 90 1RF Dose Instruction: TAKE ONE TABLET BY MOUTH ONCE A DAY FOR GOUT Rx Instructions: TAKE ONE TABLET BY MOUTH ONCE A DAY FOR GOUT ondansetron HCl 4 mg tablet 4 mg PO Q8H PRN (Reason: nausea and vomiting) 5 Days Qty: 30 0RF Referrals Follow up/Referrals: Edson Lino, [Primary Care Provider] - See instructions Activity Restrictions/Add. Instructions Additional Instructions/Restrictions: Drink plenty of fluids. Take tylenol or ibuprofen for pain or fever. Take the medications as directed. Follow up with your regular doctor. GO TO THE ER FOR ANY WORSENING SYMPTOMS The cough medication (promethazine dm) will make you drowsy, so don't drive or operate heavy machinery after taking it. Clinical Impressions Clinical Impression: COVID-19 Instructions Patient Instructions: Coronavirus Disease 2019, Preventing the Spread of Coronavirus Discharge Instructions Print Language Print Language: Danish Discharge ED Provider: Vince Valdez [facility] [place] General Stated complaint: covid home test positivbody aches nausea Mode of Arrival: Ambulatory Source of Information: Patient Limitations: No Limitations Time Seen by Provider: 10/15/23 19:11 Description of Symptoms (Recalled from Triage Doc. by RN): covid positive home test HEENT Symptoms (Recalled from RN notes): Yes Resp Symptoms (Recalled from RN notes): Yes Skin Symptoms (Recalled from RN notes): No MS Symptoms (Recalled from RN notes): No Functional Status (Recalled from RN notes): na History of Present Illness Provider Complaint: He states that since yesterday he has had fever, chills, malaise, chest congestion and cough. He used a home covid-19 test and the result was positive. Related Data Home Medications ?Medication ?Instructions ?Recorded ?Confirmed diclofenac sodium 75 mg 75 mg PO BID 07/23/22 07/21/23 tablet,delayed release hydrocodone 7.5 mg-acetaminophen 7.5 tab PO DAILY 06/16/23 07/21/23 325 mg tablet Previous Rx's ?Medication ?Instructions ?Recorded nitroglycerin 0.4 mg sublingual 0.4 mg sublingual Q5M PRN chest 06/06/21 tablet pain #20 tabs sildenafil 25 mg tablet 25 mg PO DAILY PRN sexual activity 0
[2023-10-15 19:18] VITALS: BP 115/85; PULSE 72; RESP 18; TEMP 36.8; O2SAT 97
== END 2023-10-15 19:21 | disposition home or self-care (01) ==
PROVIDERS: Emergency Provider Nurse Practitioner Family; PCP Internal Medicine
DX: U07.1 COVID-19 (principal); R50.9 Fever, unspecified; R05.9 Cough, unspecified
CPT/HCPCS: 99204; 99212; G0463

== ENCOUNTER 2023-10-29 10:09 | Outpatient (CLI) | payer MEDICARE, SELFPAY ==
--- NOTE | 2023-10-29 10:20 | XR_ITS ---
FINAL REPORT CLINICAL HISTORY: low back pain fall from tractor 3 weeks ago pain radiates down upper right leg COMPARISON: None FINDINGS: AP and lateral views of the lumbar spine were obtained. There is no prior exam for comparison. There is no acute fracture or malalignment. Vertebral body height is preserved. There is prior fusion at the L4-5 level. Moderate degenerative change is present. No acute paraspinal abnormality. IMPRESSION: Prior fusion at the L4-5 level. Moderate degenerative change is present in the lumbar spine. No acute bony abnormality identified. Reviewed, Interpreted and Dictated by Darryl Clark III, MD Transcribed by Key Meredith Authenticated and [facility]
--- NOTE | 2023-10-29 10:20 | XR_ITS ---
FINAL REPORT CLINICAL HISTORY: right upper leg pain fall from tractor 3 weeks ago pain radiates down upper right leg FINDINGS: RIGHT FEMUR: Mild degenerative changes noted of both the right hip and the right knee. No acute bony abnormality is identified. There is calcification lateral to the proximal femur, that may represent myositis ossificans. IMPRESSION: Mild degenerative change without acute bony abnormality as described. Reviewed, Interpreted and Dictated by Darryl Clark III, MD Transcribed by Key Meredith Authenticated and [facility]
--- NOTE | 2023-10-29 10:20 | XR_ITS ---
FINAL REPORT CLINICAL HISTORY: right hip pain fall from tractor 3 weeks ago pain radiates down upper right leg COMPARISON: None FINDINGS: RIGHT HIP Two views of the right hip demonstrate no acute fracture or dislocation. Mild degenerative change is present in the right hip. There is calcification in the soft tissues lateral to the proximal femur, that may represent myositis ossificans. Postoperative changes noted at the L4-5 level. The visualized bony structures are well aligned. IMPRESSION: Mild degenerative change without acute bony abnormality. Calcification in the soft tissues lateral to the proximal femur that may represent myositis ossificans. Reviewed, Interpreted and Dictated by Darryl Clark III, MD Transcribed by Key Meredith Authenticated and [facility]
== END 2023-10-29 23:59 | disposition home or self-care (01) ==
LOC: RAD 10:11
PROVIDERS: PCP Nurse Practitioner Family; Visit Provider Nurse Practitioner Family
DX: M25.551 Pain in right hip (principal); M54.50 Low back pain, unspecified; M79.651 Pain in right thigh; W19.XXXA Unspecified fall, initial encounter
CPT/HCPCS: 72100; 73502; 73552

== ENCOUNTER 2023-11-02 14:07 | Outpatient (CLI) | payer MEDICARE, SELFPAY ==
[2023-11-02 13:25] LABS: Microscopic, Urine URINE MICROSCOPIC (MICROSCOPIC)
[2023-11-02 14:06] LABS: Basophils # 0.1 K/mm3 (0-0.2); Basophils % 1.1 % (0.1-2.0); Eosinophils # 0.2 K/mm3 (0.0-0.4); Eosinophils % 2.8 % (0.1-12.0); Hematocrit 45.8 % (42.0-52.0); Hemoglobin 14.8 g/dL (14.1-18.0); Lymphocytes # 1.6 K/mm3 (0.7-4.5); Lymphocytes % 26.7 % (10-50); Mean Corpuscular HGB Conc 32.4 g/dL (31.8-35.4); Mean Corpuscular Hemoglobin 32.8 pg (27.0-31.2); Mean Corpuscular Volume 101.4 fl (80-94); Mean Platelet Volume 8.5 fl (7.4-10.4); Monocytes # 0.5 K/mm3 (0.1-1.0); Neutrophils # 3.6 K/mm3 (1.8-7.8); Neutrophils % 60.4 % (37.0-80.0); Platelet Count 279 K/mm3 (142-424); Red Blood Count 4.52 M/mm3 (4.60-6.20); Red Cell Distribution Width 13.8 % (11.5-17.5)
[2023-11-02 14:15] LABS: Albumin Level 4.5 g/dl (3.5-5.0); Chloride 108 mmol/L (98-107)
[2023-11-02 14:16] LABS: Potassium 4.7 mmoL/L (3.5-5.1); Sodium 141 mmol/L (136-145)
[2023-11-02 14:18] LABS: Alanine Aminotransferase 94 U/L (12-78); Albumin/Globulin Ratio 1.7 (1.1-1.8); Alkaline Phosphatase 129 U/L (38-126); Anion Gap 10.7 mEq/L (5-15); Aspartate Amino Transferase 67 U/L (17-59); Bilirubin,Total 0.7 mg/dl (0.2-1.3); Blood Urea Nitrogen 26 mg/dl (9-20); Carbon Dioxide 27 mmol/L (22.0-30.0); Estimated Glomerular Filt Rate 96 ml/min (>60); GFR (African American) 116 ML/MIN (>60); Globulin 2.6 g/dL (1.3-3.2); Iron 105 ug/dL (49-181); Total Protein,Serum 7.1 g/dl (6.3-8.2)
[2023-11-02 14:19] LABS: Chol/HDL Ratio 3.6 (1-3.5); Cholesterol 177 mg/dl (140-200); Glucose 116 mg/dl (74-100); HDL Cholesterol 49 mg/dl (40-60); Triglycerides 350 mg/dl (30-150); VLDL Cholesterol 70 mg/dL (0-40)
[2023-11-02 14:19] LABS: Appearance,Urine CLEAR (Clear); Bilirubin,Urine Negative (Negative); Blood, Urine 3+ (Negative); Color,Urine YELLOW (Yellow); Glucose,Urine (UA) Negative (Negative); Ketones,Urine Negative (Negative); Leukocyte Esterase,Urine Negative (Negative); Nitrate,Urine Negative (Negative); Protein,Urine Negative (Negative); Specific Gravity, Urine 1.025 (1.005-1.030); Urobilinogen,Urine 0.2 EU/dl (0.2)
[2023-11-02 14:30] LABS: Direct LDL Cholesterol 53.77 mg/dL (100-129); Total Iron Binding Capacity 307 ug/dL (261-462)
[2023-11-02 14:32] LABS: RBC,Urine 50-100 #/hpf (0-3); Squamous Epithelial Cell,Urine Occasional #/hpf (0-5)
[2023-11-02 14:50] LABS: Thyroid Stimulating Hormone 3.25 uIU/mL (0.465-4.68)
[2023-11-02 14:54] LABS: Ferritin 186 ng/ml (17.9-464)
[2023-11-02 15:03] LABS: Hemoglobin A1C 6.5 % (4.0-6.0)
[2023-11-02 18:31] LABS: Uric Acid 6.1 mg/dl (3.5-8.5)
[2023-11-02 19:26] LABS: Vitamin B12 > 1000 pg/mL (239-931)
[2023-11-02 23:15] LABS: 25-OH Vitamin D, Total 62.9 ng/mL (30-100)
[2023-11-09 09:15] LABS: Testosterone, Total, LC/MS 195 ng/dL (.)
== END 2023-11-02 23:59 | disposition home or self-care (01) ==
LOC: LAB.DROPOF 14:08
PROVIDERS: PCP Nurse Practitioner Family; Visit Provider Nurse Practitioner Family
DX: R53.83 Other fatigue (principal); Z13.29 Encounter for screening for other suspected endocrine disorder; R73.03 Prediabetes; I10 Essential (primary) hypertension; M10.9 Gout, unspecified; N13.2 Hydronephrosis with renal and ureteral calculous obstruction; Z13.1 Encounter for screening for diabetes mellitus; N52.9 Male erectile dysfunction, unspecified; E29.1 Testicular hypofunction; D64.9 Anemia, unspecified; E03.9 Hypothyroidism, unspecified; E55.9 Vitamin D deficiency, unspecified
CPT/HCPCS: 80053; 80061; 81001; 82306; 82607; 82728; 83036; 83540; 83550; 84156; 84403; 84439; 84443; 84550; 85025; 87086

== ENCOUNTER 2023-12-24 12:00 | Outpatient (CLI) | payer MEDICARE, SELFPAY | END 2023-12-24 23:59 | disposition home or self-care (01) | LOC: LAB.DROPOF 12-28 12:01 | PROVIDERS: PCP Nurse Practitioner Family; Visit Provider Nurse Practitioner Family | DX: M25.561 Pain in right knee (principal); M25.551 Pain in right hip; Z79.899 Other long term (current) drug therapy | CPT/HCPCS: 80053; 84550; 85025; 85651; 86140; 87389 ==

== ENCOUNTER 2023-12-24 16:44 | Outpatient (CLI) | payer MEDICARE, SELFPAY ==
--- NOTE | 2023-12-24 16:50 | XR_ITS ---
PROCEDURE INFORMATION: Exam: XR Right Hip Exam date and time: 12/24/2023 4:51 PM Age: 68 years old Clinical indication: Hip pain; Right hip; Additional info: Right hip pain TECHNIQUE: Imaging protocol: Radiologic exam of the right hip. Views: 2 or 3 views hip with pelvis when performed. COMPARISON: CR XR HIP RT 2-3V W/PELVIS 10/29/2023 10:28 AM FINDINGS: Bones/joints: No evidence of acute fracture or malalignment. Pubic symphysis and bilateral sacroiliac joints are congruent. 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 Hydroxyapatite deposition along the proximal right iliotibial band consistent with calcific tendinopathy, also unchanged. IMPRESSION: 1. No evidence of acute osseous abnormality in the right hip. 2. 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 3. Hydroxyapatite deposition along the proximal right iliotibial band consistent with calcific tendinopathy, also unchanged.
--- NOTE | 2023-12-24 16:50 | XR_ITS ---
PROCEDURE INFORMATION: Exam: XR Right Knee Exam date and time: 12/24/2023 4:51 PM Age: 68 years old Clinical indication: Pain; Knee; Right; Additional info: Right knee pain TECHNIQUE: Imaging protocol: Radiologic exam of the right knee. Views: 3 views. COMPARISON: No relevant prior studies available. FINDINGS: Bones/joints: No evidence of acute fracture or malalignment. No significant knee joint effusion. Degenerative osteoarthrosis with moderate joint space narrowing in the medial compartment resulting in loss of physiologic valgus alignment. Soft tissues: Unremarkable. IMPRESSION: 1. No evidence of acute osseous abnormality in the right knee. 2. Degenerative osteoarthrosis with moderate joint space narrowing in the medial compartment resulting in loss of physiologic valgus alignment.
[2023-12-24 17:17] LABS: Chloride 107 mmol/L (98-107); Sodium 142 mmol/L (136-145)
[2023-12-24 17:18] LABS: Basophils # 0.1 K/mm3 (0-0.2); Basophils % 2.1 % (0.1-2.0); Eosinophils # 0.2 K/mm3 (0.0-0.4); Eosinophils % 4.1 % (0.1-12.0); Hematocrit 44.3 % (42.0-52.0); Lymphocytes # 1.7 K/mm3 (0.7-4.5); Lymphocytes % 31.6 % (10-50); Mean Corpuscular Hemoglobin 32.2 pg (27.0-31.2); Mean Corpuscular Volume 94.8 fl (80-94); Mean Platelet Volume 7.4 fl (7.4-10.4); Monocytes # 0.5 K/mm3 (0.1-1.0); Monocytes % 8.8 % (1.7-9.3); Neutrophils # 2.9 K/mm3 (1.8-7.8); Neutrophils % 53.4 % (37.0-80.0); Platelet Count 294 K/mm3 (142-424); Potassium 4.6 mmoL/L (3.5-5.1); Red Blood Count 4.67 M/mm3 (4.60-6.20); Red Cell Distribution Width 13.3 % (11.5-17.5); White Blood Count 5.5 K/mm3 (4.8-10.8)
[2023-12-24 17:20] LABS: Alanine Aminotransferase 51 U/L (12-78); Anion Gap 12.6 mEq/L (5-15); Aspartate Amino Transferase 55 U/L (17-59); Blood Urea Nitrogen 29 mg/dl (9-20); Carbon Dioxide 27 mmol/L (22.0-30.0); Estimated Glomerular Filt Rate 66 ml/min (>60); GFR (African American) 80 ML/MIN (>60)
[2023-12-24 17:21] LABS: Alkaline Phosphatase 116 U/L (38-126); Bilirubin,Total 0.6 mg/dl (0.2-1.3); Calcium 9.8 mg/dl (8.4-10.2); Globulin 2.5 g/dL (1.3-3.2); Glucose 131 mg/dl (74-100); Total Protein,Serum 7.5 g/dl (6.3-8.2)
[2023-12-24 17:26] LABS: C-Reactive Protein 4.8 mg/L (0-4)
[2023-12-24 17:58] LABS: Erythrocyte Sedimentation Rate 13 mm/hr (0-20)
[2023-12-24 18:08] LABS: Uric Acid 5.6 mg/dl (3.5-8.5)
[2023-12-24 19:01] LABS: HIV (1&2) Antibody Rapid NONREACTIVE (NONREACTIVE)
[2023-12-28 14:27] LABS: HCV Ab NONREACTIVE
== END 2023-12-24 23:59 | disposition home or self-care (01) ==
LOC: RAD 16:47
PROVIDERS: PCP Nurse Practitioner Family; Visit Provider Nurse Practitioner Family
DX: M25.561 Pain in right knee (principal); M25.551 Pain in right hip; Z79.899 Other long term (current) drug therapy
CPT/HCPCS: 73502; 73562; 80053; 84550; 85025; 85651; 86140; 86803; 87389

== ENCOUNTER 2023-12-31 12:31 | Outpatient (POV) | payer MEDICARE, SELFPAY ==
--- NOTE | 2023-12-31 13:12 | EXP.PAIN.OV ---
HPI Data of Consult Patient: new to practice Consult date: 12/31/23 Requesting Physician: Liv Day APRN Primary Care Provider: Lolita Belcher APRN Consult Narrative History of present illness: Mr. Germain is a 68 year old male who presents today as a new patient. He is a referral from Lolita Belcher's office. Today he rates his pain a 5 out of 10. Patient states he has chronic pain throughout his neck and low back. Patient states that the neck has been going on for a couple years and describes it as a constant electrical sensation that is in his face as well as his neck and going into his left shoulder. Patient states that he has no problems on the right side. He states the low back issue started earlier this year and that it is across to his low back and goes down his right leg all the way down. He denies any issues with his left. Patient does describe back pain as a numbness tingling and he does state that the leg will give out randomly causing him to fall. Patient states due to having 3 falls in the last 2 months he did actually injure his right knee causing ACL tear and meniscus tear. He is seen a orthopedic provider Dr. Rush Day in [place] and that he did recently get a cortisone injection in this knee. He is scheduled to bring a copy of his MRI that he just had this morning to Dr. Day's office later today. Patient states he is unsure what the plan is whether they are doing a knee scope versus knee replacement. Patient does state that a lot of this initially resulted from him falling off a tractor and rolling down a hill and it just seems then that it really increased in the overall pain. He does state he experiences some spasms and he does feel like overall the worst pain is the neck and shoulder numbness tingling, electrical shock sensations. He does state he has had prior back surgery including a fusion and decompression however continues to have the chronic low back pain and is trying to prevent having to do neck surgery. Patient does state that he has had injections in the past with [facility] however it is a lot more difficult to get back and forth to that office and would like to be much closer to home. Patient has tried oral medication along with heat and ice and topicals with minimal relief. Patient denies any physical therapy or chiropractor however does state that he is very active and does exercise and stretching on a daily basis as well as he could be for longer than 3 months and no changes.patient is currently managed with gabapentin 300 mg 3 times a day from an outside provider. Patient has been on [place] and oxycodone in the past from outside providers. His Rogelio has been reviewed and is appropriate. CC: Liv Day APRN [facility] Disclaimer: The information contained in this section may have been updated after the patient was seen, as this information can be updated by other users. Medical History (Updated 12/31/23 @ 14:30 by Liv Day APRN) Right hip pain Compression of lumbar vertebra DDD (degenerative disc disease), cervical Screening for diabetes mellitus Dietary counseling Exercise counseling COVID-19 Screening for lipid disorders Screening for hypertension Calculus of distal left ureter Abscess Cancer of skin of lower extremity Kidney stone CAD (coronary artery disease), [place] coronary artery CAD in [place] artery Lumbar radicular syndrome Sebaceous cyst Guaiac + stool Elevated alkaline phosphatase level High blood pressure High cholesterol History of thyroid cancer BMI 32.0-32.9,adult Hx of myocardial infarction Surgical History History of back surgery Hx of cardiac cath Hx of repair of left rotator cuff History of cholecystectomy Rotator cuff arthropathy of right shoulder H/O thyroidectomy H/O colonoscopy with polypectomy Family History (Reviewed 12/28/23 @ 10:50 by Olinda Otero [facility]) Father , 64 MS Heart attack Brother , 65 MS Heart attack Social History (Updated 12/31/23 @ 13:46 by Anitha Reece RN) Smoking Status: Current some day smoker tobacco type: cigars alcohol intake: current alcohol intake frequency: holidays/special occasions only substance use type: marijuana current occupational status: retired Travel in the last 8 weeks: None household members: spouse housing: house marital status: number of children: 4 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 caffeine: Yes Review of Systems Review of Systems Review of systems:: pertinent systems reviewed and negative unless documented below Review of systems (narrative): Review of Systems: General: No recent weight changes, no fever, no sleep disturbances Respiratory: No cough, no shortness of air, no recurring pulmonary infections Cardiovascular/peripheral vascular: No chest pain, no palpitations, no edema, no shortness of breath Gastrointestinal: No new onset incontinence, normal bowel movements reported Genitourinary: No new onset incontinence Musculoskeletal: Neck pain, facial pain, left shoulder pain, low back pain, right leg pain, right knee pain Psychiatric: [Normal mood/affect] Neurological: [Denies weakness in extremities], [denies balance issues] Meds Home Medications and Allergies Home Medications ?Medication ?Instructions ?Recorded ?Confirmed ?Type nitroglycerin 0.4 mg sublingual 0.4 mg sublingual Q5M PRN chest 06/06/21 12/31/23 Rx tablet pain #20 tabs diclofenac sodium 75 mg 75 mg PO BID 07/23/22 12/31/23 History tablet,delayed release ondansetron 4 mg disintegrating 4 mg PO Q8H PRN Nausea #8 tabs 10/15/23 12/31/23 Rx tablet prasugrel 10 mg tablet (Effient) 10 mg PO DAILY #90 tabs 10/28/23 12/31/23 Rx allopurinol 300 mg tablet 300 mg PO DAILY 11/02/23 12/31/23 History aspirin 81 mg tablet,delayed 81 mg PO DAILY HEART HEALTH #90 11/02/23 12/31/23 Rx release tabs levothyroxine 75 mcg tablet 75 mcg PO DAILY thyroid #90 tabs 11/02/23 12/31/23 Rx (Synthroid) metoprolol succinate 50 mg 50 mg PO BID HTN #180 tabs 11/02/23 12/31/23 Rx tablet,extended release 24 hr sildenafil 25 mg tablet 25 mg PO DAILY PRN sexual activity 11/02/23 12/31/23 Rx #30 tabs atorvastatin 10 mg tablet 10 mg PO DAILY #90 tabs 12/24/23 12/31/23 Rx fenofibrate 160 mg tablet 160 mg PO DAILY #90 tabs 12/24/23 12/31/23 Rx pregabalin 100 mg capsule (Lyrica) 100 mg PO BID #60 caps 12/24/23 12/31/23 Rx tramadol 50 mg tablet 50 - 100 mg (1 - 2 x 50 mg) PO Q6H 12/24/23 12/31/23 Rx PRN pain #30 tabs New Prescriptions to Start Prescriptions: Allergies Allergy/AdvReac Type Severity Reaction Status Date / Time amlodipine Allergy Severe Angioedema Verified 12/28/23 10:50 lisinopril Allergy Severe angioedema Verified 12/28/23 10:50 tamsulosin (From Flomax) Allergy Verified 12/28/23 10:50 hydrochlorothiazide AdvReac Mild GOUT Verified 12/28/23 10:50 Objective Narrative: Physical Exam: General: Alert and oriented x3, no acute distress, pleasant and cooperative Lungs: Respirations even and unlabored, symmetrical chest expansion Eyes: PERRL Musculoskeletal: Flexion and extension of cervical [spine] somewhat guarded secondary to pain, [antalgic gait noted] positive Spurling's test Neurological: Speech clear, no gross sensory deficit Additional findings Additional findings: FINDINGS: AP and lateral views of the lumbar spine were obtained. There is no prior exam for comparison. There is no acute fracture or malalignment. Vertebral body height is preserved. There is prior fusion at the L4-5 level. Moderate degenerative change is present. No acute paraspinal abnormality. IMPRESSION: Prior fusion at the L4-5 level. Moderate degenerative change is present in the lumbar spine. No acute bony abnormality identified. Reviewed, Interpreted and Dictated by Darryl Clark III, MD Transcribed by Key Meredith Authenticated and [facility] TECHNIQUE: Imaging protocol: Radiologic exam of the right hip. Views: 2 or 3 views hip with pelvis when performed. COMPARISON: CR XR HIP RT 2-3V W/PELVIS 10/29/2023 10:28 AM FINDINGS: Bones/joints: No evidence of acute fracture or malalignment. Pubic symphysis and bilateral sacroiliac joints are congruent. 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 Hydroxyapatite deposition along the proximal right iliotibial band consistent with calcific tendinopathy, also unchanged. IMPRESSION: 1. No evidence of acute osseous abnormality in the right hip. 2. 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 3. Hydroxyapatite deposition along the proximal right iliotibial band consistent with calcific tendinopathy, also unchanged. INGS: Bones/joints: No evidence of acute fracture or malalignment. No significant knee joint effusion. Degenerative osteoarthrosis with moderate joint space narrowing in the medial compartment resulting in loss of physiologic valgus alignment. Soft tissues: Unremarkable. IMPRESSION: 1. No evidence of acute osseous abnormality in the right knee. 2. Degenerative osteoarthrosis with moderate joint space narrowing in the medial compartment resulting in loss of physiologic valgus alignment. Assessment and Plan *Assessment and plan (1) DDD (degenerative disc disease), cervical: Status: Acute Category: Medical Code(s): M50.30 - Other cervical disc degeneration, unspecified cervical region (2) Cervical radiculopathy: Status: Acute Category: Medical Code(s): M54.12 - Radiculopathy, cervical region (3) Lumbar back pain with radiculopathy affecting lower extremity: Status: Acute Category: Medical Code(s): M54.16 - Radiculopathy, lumbar region (4) Right knee pain: Status: Acute Category: Medical Code(s): M25.561 - Pain in right knee Plan Patient is experiencing significant pain in his Neck with radiating electrical shock sensations and numbness into his left shoulder. Patient did have limited range of motion of his cervical spine and a positive Spurling's test during today's visit. I did discuss with the patient that I do believe he would benefit from a cervical epidural steroid injection. Risk and benefits were discussed with the patient and he would like to proceed forward with this plan of care. Patient is on a blood thinner written by Dr. Wolf's office so we will call and confirm that he can stop this medication prior to his injection. Patient was also counseled due to him seeing orthopedics for his knee and may need knee replacement to make sure that there are no contraindications with that provider to proceed forward with this injection. Patient acknowledges understanding agrees with plan of care. I will order the patient a compounded cream and send in a prescription of baclofen 5 mg 3 times daily with a 2-week supply of this. Patient has tried and failed conservative therapy including continued at home exercising and stretching for longer than 12 weeks. Patient will be scheduled for a EMILY C5-C6 under fluoroscopy. Patient did have severe canal narrowing and severe bilateral neuroforaminal narrowing at this level. Patient has been instructed to contact the clinic with any concerns before the next appointment. Dr. Rm has reviewed this note and agrees with this plan of care. This note was dictated using voice recognition software and make contain errors or omissions. All injections are used with Lidocaine or Bupivacaine and Depo Medrol.
[2023-12-31 13:34] VITALS: BP 128/83; PULSE 57; RESP 18; O2SAT 97; BMI 32.3
== END 2023-12-31 23:59 | disposition home or self-care (01) ==
PROVIDERS: PCP Nurse Practitioner Family; Visit Provider Nurse Practitioner Family
DX: M50.10 Cervical disc disorder with radiculopathy, unspecified cervical region (principal); M25.561 Pain in right knee; F17.290 Nicotine dependence, other tobacco product, uncomplicated
CPT/HCPCS: 99202; G0463

== ENCOUNTER 2024-01-26 10:29 | Day surgery (SDC) | payer MEDICARE, SELFPAY ==
[2024-01-26 10:38] VITALS: BP 120/78; PULSE 63; RESP 16; TEMP 36.4; O2SAT 96; BMI 31.6
[2024-01-26] MEDS: methylPREDNISolone ACETATE 80MG/ML VIAL 80 MG (10:47)
[2024-01-26 10:49] VITALS: BP 144/98; PULSE 63; RESP 18; O2SAT 97
[2024-01-26 10:52] VITALS: BP 144/98; PULSE 63; RESP 18; O2SAT 97
[2024-01-26] MEDS: IOPAMIDOL-200 (41%);10ML VIAL 10 ML IV (10:55)
[2024-01-26 11:06] VITALS: BP 120/79; PULSE 58; RESP 16; TEMP 36.8; O2SAT 97
--- NOTE | 2024-01-26 11:12 | P.PCN_ITS ---
Procedure Date: 01/26/24 Time: 11:00 Anesthesiologist:: Jossue Rich CRNA Complications:: None Pre-procedure Diagnosis:: Degenerative disc cervical spine multilevels. Cervical radiculopathy. Post-procedure Diagnosis:: Same. Indications for Procedure:: Patient is a very pleasant 68-year-old male who came to our clinic today for cervical epidural steroid injection. Patient has had this injection in the past and it another facility. He states more convenient to have the injection here. We will be seeing him here in our clinic from now on for interventional pain procedures. He describes cervical neck pain as constant, dull, aching. Bilateral arm radicular symptoms. He reports having significant improvement in the symptoms with previous injections. He rates his pain 7/10. Procedure Details:: Procedure:Cervical epidural steroid injection Informed consent was obtained and the risks and benefits of the procedure were explained to the patient. The patient was taken to the procedure room and noninvasive monitors placed, including noninvasive blood pressure cuff and pulse oximeter. The neck was prepped using Chloraprep as a cleansing solution. The C6- C7 interspace was viewed using fluroscopy. The skin and subcutaneous tissues were anesthetized using lidocaine 1.5% and a 25-gauge needle. After this an 18- gauge Touhy epidural needle was placed into the C6-C7 interspace under fluroscopy guidance and advanced using loss of resistance to air until the epidural space was encountered. After confirmation of needle placement in the epidural space using contrast dye, a solution containing normal saline, 2 mL and Depo-Medrol 80 mg was incrementally injected into the cervical epidural space.~ The patient tolerated the procedure well with no complications. The patient was observed in the Pain Clinic and then discharged home neurologically intact. Plan and Disposition:: Patient was discharged without incident.
== END 2024-01-26 11:06 | disposition home or self-care (01) ==
LOC: SC.PAINP 10:30
PROVIDERS: PCP Nurse Practitioner Family; Visit Provider Nurse Practitioner Family
DX: M50.30 Other cervical disc degeneration, unspecified cervical region (principal); M54.12 Radiculopathy, cervical region
CPT/HCPCS: 62321; J1010; Q9966

== ENCOUNTER 2024-02-15 14:31 | Outpatient (RCR) | payer MEDICARE, SELFPAY | END 2024-02-15 23:59 | disposition home or self-care (01) | LOC: PT 14:31 | PROVIDERS: Visit Provider Orthopaedic Surgery | DX: M25.561 Pain in right knee (principal); Z98.890 Other specified postprocedural states | CPT/HCPCS: 97110; 97163; 97530 ==

== ENCOUNTER 2024-03-22 14:42 | Outpatient (CLI) | payer MEDICARE, SELFPAY ==
[2024-03-22 13:53] LABS: Microscopic, Urine URINE MICROSCOPIC (MICROSCOPIC)
[2024-03-22 14:34] LABS: Appearance,Urine CLEAR (Clear); Bilirubin,Urine Negative (Negative); Blood, Urine 2+ (Negative); Color,Urine YELLOW (Yellow); Glucose,Urine (UA) Negative (Negative); Ketones,Urine Negative (Negative); Leukocyte Esterase,Urine Negative (Negative); Nitrate,Urine Negative (Negative); Protein,Urine Negative (Negative); Specific Gravity, Urine 1.025 (1.005-1.030); Urobilinogen,Urine 0.2 EU/dl (0.2)
[2024-03-22 14:46] LABS: Creatinine,Urine Random 134 mg/dL (Not Estab.); Hemoglobin A1C 6.1 % (4.0-6.0)
[2024-03-22 14:49] LABS: Microalbumin/Creatinine Ratio 9.7
[2024-03-22 15:18] LABS: Alanine Aminotransferase 36 U/L (12-78); Albumin/Globulin Ratio 2.8 (1.1-1.8); Alkaline Phosphatase 110 U/L (38-126); Anion Gap 15.9 mEq/L (5-15); Aspartate Amino Transferase 42 U/L (17-59); Bilirubin,Total 0.4 mg/dl (0.2-1.3); Blood Urea Nitrogen 33 mg/dl (9-20); Calcium 9.3 mg/dl (8.4-10.2); Carbon Dioxide 26 mmol/L (22.0-30.0); Chloride 104 mmol/L (98-107); Chol/HDL Ratio 2.9 (1-3.5); Cholesterol 122 mg/dl (140-200); Estimated Glomerular Filt Rate 96 ml/min (>60); GFR (African American) 116 ML/MIN (>60); Globulin 1.8 g/dL (1.3-3.2); Glucose 101 mg/dl (74-100); HDL Cholesterol 42 mg/dl (40-60); Potassium 4.9 mmoL/L (3.5-5.1); Sodium 141 mmol/L (136-145); Total Protein,Serum 6.8 g/dl (6.3-8.2); Triglycerides 102 mg/dl (30-150); VLDL Cholesterol 20 mg/dL (0-40)
[2024-03-22 15:24] LABS: RBC,Urine Occasional #/hpf (0-3); WBC,Urine Occasional #/hpf (0-3)
[2024-03-22 15:29] LABS: Direct LDL Cholesterol 50.78 mg/dL (100-129)
[2024-03-30 01:13] LABS: Testosterone, Total, LC/MS 254 ng/dL (.)
== END 2024-03-22 23:59 | disposition home or self-care (01) ==
LOC: LAB.DROPOF 14:42
PROVIDERS: PCP Nurse Practitioner Family; Visit Provider Nurse Practitioner Family
DX: E11.9 Type 2 diabetes mellitus without complications (principal); E78.2 Mixed hyperlipidemia; R39.9 Unspecified symptoms and signs involving the genitourinary system; I10 Essential (primary) hypertension; M54.50 Low back pain, unspecified; N52.9 Male erectile dysfunction, unspecified; M10.9 Gout, unspecified; E03.9 Hypothyroidism, unspecified
CPT/HCPCS: 80053; 80061; 81001; 82043; 82570; 83036; 84403; 87086

== ENCOUNTER 2024-05-11 09:55 | Outpatient (CLI) | payer MEDICARE, SELFPAY ==
[2024-05-11 10:38] LABS: Basophils # 0.1 K/mm3 (0-0.2); Basophils % 1.3 % (0.1-2.0); Eosinophils # 0.1 K/mm3 (0.0-0.4); Eosinophils % 1.6 % (0.1-12.0); Hematocrit 42.2 % (42.0-52.0); Lymphocytes # 1.7 K/mm3 (0.7-4.5); Lymphocytes % 22.8 % (10-50); Mean Corpuscular HGB Conc 33.2 g/dL (31.8-35.4); Mean Corpuscular Hemoglobin 30.6 pg (27.0-31.2); Mean Corpuscular Volume 92.1 fl (80-94); Mean Platelet Volume 9.6 fl (7.4-10.4); Monocytes # 0.7 K/mm3 (0.1-1.0); Monocytes % 8.8 % (1.7-9.3); Neutrophils # 4.9 K/mm3 (1.8-7.8); Neutrophils % 65.1 % (37.0-80.0); Platelet Count 270 K/mm3 (142-424); Red Blood Count 4.58 M/mm3 (4.60-6.20); Red Cell Distribution Width 12.3 % (11.5-17.5); White Blood Count 7.5 K/mm3 (4.8-10.8)
[2024-05-11 11:26] LABS: Free Thyroxine Index 2.6 ug/dL (5.93-13.13); T4 (Thyroxine) 7.9 ug/dl (5.53-11.0); Triiodothryronine (T3) Uptake 33 % (23.5-40.5)
[2024-05-11 11:40] LABS: Prostate Specific Ag Screen 1.7 ng/ml (0.0-4.0); Thyroid Stimulating Hormone 2.81 uIU/mL (0.465-4.68)
== END 2024-05-11 23:59 | disposition home or self-care (01) ==
LOC: LAB 09:56
PROVIDERS: PCP Nurse Practitioner Family; Visit Provider Nurse Practitioner Family
DX: Z11.4 Encounter for screening for human immunodeficiency virus [HIV] (principal); Z11.59 Encounter for screening for other viral diseases; Z13.29 Encounter for screening for other suspected endocrine disorder; I10 Essential (primary) hypertension; E78.2 Mixed hyperlipidemia; E03.9 Hypothyroidism, unspecified; R53.83 Other fatigue; M70.61 Trochanteric bursitis, right hip; E11.9 Type 2 diabetes mellitus without complications; E55.9 Vitamin D deficiency, unspecified; R93.1 Abnormal findings on diagnostic imaging of heart and coronary circulation; I20.0 Unstable angina; N13.2 Hydronephrosis with renal and ureteral calculous obstruction; Z12.12 Encounter for screening for malignant neoplasm of rectum; Z13.21 Encounter for screening for nutritional disorder; N52.9 Male erectile dysfunction, unspecified; M10.9 Gout, unspecified; I25.2 Old myocardial infarction; C43.9 Malignant melanoma of skin, unspecified; D09.9 Carcinoma in situ, unspecified; M54.16 Radiculopathy, lumbar region; M50.30 Other cervical disc degeneration, unspecified cervical region; M54.12 Radiculopathy, cervical region; E29.1 Testicular hypofunction; Z00.00 Encounter for general adult medical examination without abnormal findings; Z12.5 Encounter for screening for malignant neoplasm of prostate
CPT/HCPCS: 36415; 84436; 84443; 84479; 85025; G0103

== ENCOUNTER 2024-06-08 11:44 | Emergency (ER) | payer MEDICARE, SELFPAY ==
[2024-06-08] VITALS (10 sets, daily range): BP systolic 119–141; BP diastolic 79–93; PULSE 49–68; RESP 16–20; TEMP 36.7–36.8; O2SAT 97–100; BMI 30.3
[2024-06-08 12:00] LABS: Microscopic, Urine URINE MICROSCOPIC (MICROSCOPIC)
[2024-06-08 12:02] LABS: Appearance,Urine SL CLOUDY (Clear); Bilirubin,Urine Negative (Negative); Blood, Urine 3+ (Negative); Color,Urine YELLOW (Yellow); Glucose,Urine (UA) Negative (Negative); Ketones,Urine Negative (Negative); Leukocyte Esterase,Urine Negative (Negative); Nitrate,Urine Negative (Negative); Protein,Urine TRACE (Negative); Specific Gravity, Urine >= 1.030 (1.005-1.030); Urobilinogen,Urine 0.2 EU/dl (0.2)
[2024-06-08] MEDS: KETOROLAC 30MG/ML VIAL 15 MG IV (12:10)
[2024-06-08] MEDS: ONDANSETRON 4MG/2ML VIAL 4 MG IV (12:10)
[2024-06-08 12:11] LABS: RBC,Urine 20-50 #/hpf (0-3); WBC,Urine Occasional #/hpf (0-3)
--- NOTE | 2024-06-08 12:11 | HMH.EDGENADL ---
Discharge Plan Disposition Patient Disposition: Xfer Short-Term Hosp Condition: Fair Prescriptions Prescriptions: No Action nitroglycerin 0.4 mg tablet, sublingual 0.4 mg SUBLINGUAL Q5M PRN (Reason: chest pain) Qty: 20 0RF Rx Instructions: do not exceed 3 doses per episode prasugrel HCl [Effient] 10 mg tablet 10 mg PO DAILY Qty: 90 3RF aspirin 81 mg tablet,delayed release (DR/EC) 81 mg PO DAILY Qty: 90 3RF levothyroxine [Synthroid] 75 mcg tablet 75 mcg PO DAILY Qty: 90 3RF sildenafil 25 mg tablet 25 mg PO DAILY PRN (Reason: sexual activity) Qty: 30 1RF Rx Instructions: administer 30 minutes to 4 hours before activity atorvastatin 10 mg tablet 10 mg PO DAILY Qty: 90 3RF allopurinol 300 mg tablet 300 mg PO DAILY pregabalin [Lyrica] 100 mg capsule 100 mg PO ONCE metoprolol succinate 25 mg tablet extended release 24 hr 25 mg PO DAILY Qty: 30 2RF Referrals Follow up/Referrals: Lolita Belcher APRN [Primary Care Provider] - See instructions Activity Restrictions/Add. Instructions Additional Instructions/Restrictions: Patient to be transferred to [facility] to the care of Dr. Andrea Clinical Impressions Clinical Impression: Urinary tract obstruction due to kidney stone, Hydroureteronephrosis Stand Alone Forms Stand Alone Forms: Transfer Record - ED Print Language Print Language: Croatian Discharge ED Provider: Simon Alvarenga General Adult HPI <NUZHAT Starr - Last Filed: 06/08/24 13:40> General Chief complaint: Abdominal Pain Stated complaint: abd/back pain on right side fever vomiting Time Seen by Provider: 06/08/24 12:11 Mode of Arrival: Ambulatory Source of Information: Patient Description of Symptoms (Recalled from ER Triage Doc. by RN): Pt presents for evaluation of Right flank pain/RLQ abd pain. PT states he had the flank pain for a week, today the pain has moved to the RLQ. Pt states he has a hx of kidney stones that have required surgery. Pt states he got up at 0600 and was unable to void and has had blood clots in his urine. History of Present Illness HPI narrative: Patient presents for evaluation of right flank pain. Patient gives a 1 week history of right flank pain. He has a known history of kidney stones last episode was in April of last year. He had 3 stones at 1 time was able to pass 1 but the other 2 had to be extracted. He follows with Dr. Dorado and urology in [place] and called him on Thursday and again today but could not reach him so he presented for evaluation. Patient reports his pain is a 10 out of 10 and does not radiate. He denies fever chills hemoptysis hematochezia melena he reports nausea and vomiting but no diarrhea. Related Data Home Medications ?Medication ?Instructions ?Recorded ?Confirmed allopurinol 300 mg tablet 300 mg PO DAILY 03/22/24 05/11/24 pregabalin 100 mg capsule (Lyrica) 100 mg PO ONCE 05/11/24 05/11/24 Previous Rx's ?Medication ?Instructions ?Recorded nitroglycerin 0.4 mg sublingual 0.4 mg sublingual Q5M PRN chest 06/06/21 tablet pain #20 tabs prasugrel HCl 10 mg tablet 10 mg PO DAILY #90 tabs 10/28/23 (Effient) aspirin 81 mg tablet,delayed 81 mg PO DAILY [facility] #90 11/02/23 release tabs levothyroxine 75 mcg tablet 75 mcg PO DAILY thyroid #90 tabs 11/02/23 (Synthroid) sildenafil 25 mg tablet 25 mg PO DAILY PRN sexual activity 11/02/23 #30 tabs atorvastatin 10 mg tablet 10 mg PO DAILY #90 tabs 12/24/23 metoprolol succinate 25 mg 25 mg PO DAILY #30 tabs 05/11/24 tablet,extended release 24 hr Allergies Allergy/AdvReac Type Severity Reaction Status Date / Time amlodipine Allergy Severe Angioedema Verified 05/11/24 09:06 lisinopril Allergy Severe angioedema Verified 05/11/24 09:06 tamsulosin (From Flomax) Allergy Verified 05/11/24 09:06 hydrochlorothiazide AdvReac Mild GOUT Verified 05/11/24 09:06 [facility] <NUZHAT Starr - Last Filed: 06/08/24 13:40> [facility] Disclaimer: The information contained in this section may have been updated after the patient was seen, as this information can be updated by other users. Medical History (Updated 06/08/24 @ 13:11 by NUZHAT Starr) Low testosterone Fatigue Angioedema Pain in right thigh Fall Internal derangement of right knee Locking of right knee Deep contusion of bone Complex tear of meniscus of right knee Right knee pain Prediabetes Encounter for pre-operative cardiovascular clearance Right hip pain Compression of lumbar vertebra DDD (degenerative disc disease), cervical Screening for diabetes mellitus Dietary counseling Exercise counseling COVID-19 Screening for lipid disorders Screening for hypertension Calculus of distal left ureter Abscess Cancer of skin of lower extremity Kidney stone CAD (coronary artery disease), [place] coronary artery CAD in [place] artery Lumbar radicular syndrome Sebaceous cyst Guaiac + stool Elevated alkaline phosphatase level High blood pressure High cholesterol History of thyroid cancer BMI 32.0-32.9,adult Hx of myocardial infarction Surgical History History of back surgery Hx of cardiac cath Hx of repair of left rotator cuff History of cholecystectomy Rotator cuff arthropathy of right shoulder H/O thyroidectomy H/O colonoscopy with polypectomy Family History Father , 64 [place] Heart attack Brother , 65 [place] Heart attack Social History Smoking Status: Never smoker alcohol intake: current alcohol intake frequency: holidays/special occasions only substance use type: marijuana current occupational status: retired Travel in the last 8 weeks: None household members: spouse housing: house marital status: number of children: 4 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 caffeine: Yes Have you lived/traveled outside US in past 30 days?: No Contact w/someone who lives/traveled outside US past 30 days?: No Exposure to someone with infectious disease in past 14 days?: No Do you have a fever (greater than 100.4 F or 38 C)?: No Have you tested positive for COVID-19: No Exposed to someone with COVID-19 in past 14 days?: No Do you have a sore throat?: No Do you have a cough?: No Do you have any weakness?: No Do you have any diarrhea?: No Are you experiencing any unusual bleeding?: No Do you have any muscle aches/pain?: No Do you have any abdominal pain?: Yes Are you experiencing loss of taste or smell?: No Other Medical History Have you received the Flu Vaccine for this season: No Have you received the Pneumonia Vaccine: No <NUZHAT Starr - Last Filed: 06/08/24 13:40> ROS Obtained: Yes Systems reviewed as appropriate & no additional complaints except as documented Physical Exam <NUZHAT Starr - Last Filed: 06/08/24 13:40> General General appearance: alert and in no apparent distress Respiratory Respiratory exam: Present normal lung sounds bilaterally Cardiovascular Cardiovascular exam: Present regular rate Neurological Exam Neurological exam: Present alert and oriented X3 Medical Decision Making <NUZHAT Starr - Last Filed: 06/08/24 13:40> Medical Records Medical records reviewed: Yes I reviewed the patient's medical records. Screening: Per USPSTF and CDC recommendations, given the prevalence of disease in our region, it is our hospital?s policy to screen for HIV and viral Hepatitis for all patients aged 18 and over and those with ongoing risk factors. Rogelio Inquiry Pt receiving controlled substance: No Vital Signs: 06/08/24 11:52 06/08/24 11:54 06/08/24 12:16 Temperature 98.1 F Temperature Source Oral Pulse Rate 68 66 Pulse Rate [Right] 65 Respiratory Rate 16 Blood Pressure 141/93 H 119/87 Blood Pressure [Right Arm] 141/93 H Blood Pressure Mean [Right Arm] 109 Blood Pressure Source [Right Arm] Automatic Cuff Blood Pressure Position [Right Arm] Sitting 02 Sat by Pulse Oximetry 99 97 100 Oxygen Delivery Method Room Air Room Air Room Air 06/08/24 12:46 06/08/24 13:01 06/08/24 13:16 Temperature Temperature Source Pulse Rate 57 L 59 L 59 L Pulse Rate [Right] Respiratory Rate Blood Pressure 121/82 124/79 123/82 Blood Pressure [Right Arm] Blood Pressure Mean [Right Arm] Blood Pressure Source [Right Arm] Blood Pressure Position [Right Arm] 02 Sat by Pulse Oximetry 99 97 97 Oxygen Delivery Method Room Air Room Air Room Air 06/08/24 13:30 06/08/24 13:46 06/08/24 14:01 Temperature Temperature Source Pulse Rate 49 L 55 L 52 L Pulse Rate [Right] Respiratory Rate Blood Pressure 122/83 127/82 123/83 Blood Pressure [Right Arm] Blood Pressure Mean [Right Arm] Blood Pressure Source [Right Arm] Blood Pressure Position [Right Arm] 02 Sat by Pulse Oximetry 97 98 98 Oxygen Delivery Method Room Air Room Air Room Air 06/08/24 14:24 Temperature 98.2 F Temperature Source Pulse Rate 55 L Pulse Rate [Right] Respiratory Rate 20 Blood Pressure 123/82 Blood Pressure [Right Arm] Blood Pressure Mean [Right Arm] Blood Pressure Source [Right Arm] Blood Pressure Position [Right Arm] 02 Sat by Pulse Oximetry Oxygen Delivery Method Room Air Lab Data Lab results reviewed: Yes I reviewed the patient's lab results. Lab Results 06/08/24 11:55: Urine Color Yellow, Urine Appearance Sl cloudy, Urine pH 6.0, Ur Specific [place] >= 1.030, Urine Protein Trace, Urine Glucose (UA) Negative, Urine Ketones Negative, Urine Blood 3+ A, Urine Nitrate Negative, Urine Bilirubin Negative, Urine Urobilinogen 0.2, Ur Leukocyte Esterase Negative, Urine RBC 20-50, Urine WBC Occasional, Ur Squamous Epith Cells None, Urine Bacteria Trace 06/08/24 12:05: WBC 11.0 H, RBC 4.62, Hgb 14.1, Hct 42.5, MCV 92.0, MCH 30.5, MCHC 33.2, RDW 13.0, Plt Count 262, MPV 9.7, Neut % (Auto) 76.0, Lymph % (Auto) 13.2, [place] % (Auto) 8.4, Eos % (Auto) 1.2, Baso % (Auto) 0.8, Neut # (Auto) 8.4 H, Lymph # (Auto) 1.5, [place] # (Auto) 0.9, Eos # (Auto) 0.1, Baso # (Auto) 0.1, Sodium 142, Potassium 4.4, Chloride 107, Carbon Dioxide 28, Anion Gap 11.4, BUN 18, Creatinine 1.00, Estimated Creat Clear 101, Estimated GFR 74, Est GFR ( Amer) 89, Glucose 127 H, Calcium 9.6, Total Bilirubin 0.6, AST 49, ALT 50, Alkaline Phosphatase 109, Total Protein 7.5, Albumin 4.6, Globulin 2.9, Albumin/Globulin Ratio 1.6, Procalcitonin 0.051 06/08/24 12:05 06/08/24 12:05 Orders (Tests/Meds): ED MEDICATIONS Discontinued Medications Generic Name Dose Route Start Last Admin Trade Name Freq PRN Reason Stop Dose Admin Acetaminophen 1,000 mg 06/08/24 12:13 06/08/24 12:22 Acetaminophen 1,000mg/100ml Vial IV 06/08/24 12:14 1,000 mg ONCE ONE Administration Hydromorphone HCl 1 mg 06/08/24 12:13 06/08/24 12:23 Hydromorphone 2mg/Ml Syringe IV 06/08/24 12:14 1 mg ONCE ONE Administration Hydromorphone HCl 0.5 mg 06/08/24 13:34 06/08/24 13:41 Hydromorphone 2mg/Ml Syringe IV 06/08/24 13:35 0.5 mg ONCE ONE Administration Sodium Chloride 1,000 mls @ 999 mls/hr 06/08/24 12:13 06/08/24 12:23 Sod Chlor 0.9% 1000ml Bag IV 06/08/24 13:13 999 mls/hr .Q1H1M ONE Administration Ceftriaxone Sodium 1 gm/ 50 mls @ 100 mls/hr 06/08/24 12:45 06/08/24 12:47 Sodium Chloride IV 06/18/24 12:44 100 mls/hr Q24H JANIA Administration Ketorolac Tromethamine 15 mg 06/08/24 12:06 06/08/24 12:10 Ketorolac 30mg/Ml Vial IV 06/08/24 12:07 15 mg ONCE ONE Administration Ondansetron HCl 4 mg 06/08/24 12:06 06/08/24 12:10 Ondansetron 4mg/2ml Vial IV 06/08/24 12:07 4 mg ONCE ONE Administration ORDERS Category Date Time Status CT abdomen pelvis wo con Stat Cat Scan 06/08/24 12:13 Completed CBC w/Auto Diff [Complete Blood Count Auto Diff] Stat Lab 06/08/24 12:05 Completed CMP [Comprehensive Metabolic Panel] Stat Lab 06/08/24 12:05 Completed Procalcitonin Stat Lab 06/08/24 12:05 Completed UA [Urinalysis and Microscopic] Stat Lab 06/08/24 11:55 Completed Medical Decision Narrative: In summary patient is a 68-year-old male who presents to the emergency department for evaluation of right flank pain. Patient is hemodynamically stable the blood pressure 141/93 pulse 65 with normal sinus rhythm on bedside monitor breathing 16 times a minute satting at 97% on room air upon arrival, febrile at 90.1. Physical exam is remarkable for right sided mid lateral abdominal pain on palpation and in the right flank however he has CVA tenderness to percussion. Bowel sounds normoactive no rebound or guarding no rigidity.. Differential diagnosis includes kidney stone versus obstruction versus complicated UTI etc. Initial workup will be conducted with hematologic labs CT scan stone protocol urinalysis. Initial interventions include crystalloid bolus Toradol Tylenol Zofran Dilaudid. Patient is allergic to tamsulosin so we will defer that. Initial workup reviewed by me and urinalysis shows 3+ blood but otherwise is bland, hematologic labs are significant for white count of 11 with a neutrophilic shift and the remainder of his hematologic labs are nonactionable. My informal interpretation of his CT scan shows an obstructing right ureteral stone with hydroureteronephrosis and perinephric stranding prior to radiology read. Given his white count and CT findings I have started the patient on Rocephin with 1 g given here.. Upon repeat evaluation reported symptomatic relief after initial intervention. Given this I had a shared decision-making discussion with the patient and he would like for us to try and contact Dr. Young at [facility] [place] who is his urologist. Given that I have placed a call at 1300 hrs. to the on-call center at [facility]. I have spoken with both Dr. Young and the hospitalist service about patient presentation JOHNSON and management at [facility] and patient has been accepted in transfer to a [facility] bed in care of Dr. Andrea [facility] for intervention by Dr. Campbell tomorrow. <Simon Alvarenga MD - Last Filed: 06/09/24 07:23> Vital Signs: 06/08/24 11:52 06/08/24 11:54 06/08/24 12:16 Temperature 98.1 F Temperature Source Oral Pulse Rate 68 66 Pulse Rate [Right] 65 Respiratory Rate 16 Blood Pressure 141/93 H 119/87 Blood Pressure [Right Arm] 141/93 H Blood Pressure Mean [Right Arm] 109 Blood Pressure Source [Right Arm] Automatic Cuff Blood Pressure Position [Right Arm] Sitting 02 Sat by Pulse Oximetry 99 97 100 Oxygen Delivery Method Room Air Room Air Room Air 06/08/24 12:46 06/08/24 13:01 06/08/24 13:16 Temperature Temperature Source Pulse Rate 57 L 59 L 59 L Pulse Rate [Right] Respiratory Rate Blood Pressure 121/82 124/79 123/82 Blood Pressure [Right Arm] Blood Pressure Mean [Right Arm] Blood Pressure Source [Right Arm] Blood Pressure Position [Right Arm] 02 Sat by Pulse Oximetry 99 97 97 Oxygen Delivery Method Room Air Room Air Room Air 06/08/24 13:30 06/08/24 13:46 06/08/24 14:01 Temperature Temperature Source Pulse Rate 49 L 55 L 52 L Pulse Rate [Right] Respiratory Rate Blood Pressure 122/83 127/82 123/83 Blood Pressure [Right Arm] Blood Pressure Mean [Right Arm] Blood Pressure Source [Right Arm] Blood Pressure Position [Right Arm] 02 Sat by Pulse Oximetry 97 98 98 Oxygen Delivery Method Room Air Room Air Room Air 06/08/24 14:24 Temperature 98.2 F Temperature Source Pulse Rate 55 L Pulse Rate [Right] Respiratory Rate 20 Blood Pressure 123/82 Blood Pressure [Right Arm] Blood Pressure Mean [Right Arm] Blood Pressure Source [Right Arm] Blood Pressure Position [Right Arm] 02 Sat by Pulse Oximetry Oxygen Delivery Method Room Air Lab Data Lab Results 06/08/24 11:55: Urine Color Yellow, Urine Appearance Sl cloudy, Urine pH 6.0, Ur Specific [place] >= 1.030, Urine Protein Trace, Urine Glucose (UA) Negative, Urine Ketones Negative, Urine Blood 3+ A, Urine Nitrate Negative, Urine Bilirubin Negative, Urine Urobilinogen 0.2, Ur Leukocyte Esterase Negative, Urine RBC 20-50, Urine WBC Occasional, Ur Squamous Epith Cells None, Urine Bacteria Trace 06/08/24 12:05: WBC 11.0 H, RBC 4.62, Hgb 14.1, Hct 42.5, MCV 92.0, MCH 30.5, MCHC 33.2, RDW 13.0, Plt Count 262, MPV 9.7, Neut % (Auto) 76.0, Lymph % (Auto) 13.2, [place] % (Auto) 8.4, Eos % (Auto) 1.2, Baso % (Auto) 0.8, Neut # (Auto) 8.4 H, Lymph # (Auto) 1.5, [place] # (Auto) 0.9, Eos # (Auto) 0.1, Baso # (Auto) 0.1, Sodium 142, Potassium 4.4, Chloride 107, Carbon Dioxide 28, Anion Gap 11.4, BUN 18, Creatinine 1.00, Estimated Creat Clear 101, Estimated GFR 74, Est GFR ( Amer) 89, Glucose 127 H, Calcium 9.6, Total Bilirubin 0.6, AST 49, ALT 50, Alkaline Phosphatase 109, Total Protein 7.5, Albumin 4.6, Globulin 2.9, Albumin/Globulin Ratio 1.6, Procalcitonin 0.051 Orders (Tests/Meds): ED MEDICATIONS Discontinued Medications Generic Name Dose Route Start Last Admin Trade Name Freq PRN Reason Stop Dose Admin Acetaminophen 1,000 mg 06/08/24 12:13 06/08/24 12:22 Acetaminophen 1,000mg/100ml Vial IV 06/08/24 12:14 1,000 mg ONCE ONE Administration Hydromorphone HCl 1 mg 06/08/24 12:13 06/08/24 12:23 Hydromorphone 2mg/Ml Syringe IV 06/08/24 12:14 1 mg ONCE ONE Administration Hydromorphone HCl 0.5 mg 06/08/24 13:34 06/08/24 13:41 Hydromorphone 2mg/Ml Syringe IV 06/08/24 13:35 0.5 mg ONCE ONE Administration Sodium Chloride 1,000 mls @ 999 mls/hr 06/08/24 12:13 06/08/24 12:23 Sod Chlor 0.9% 1000ml Bag IV 06/08/24 13:13 999 mls/hr .Q1H1M ONE Administration Ceftriaxone Sodium 1 gm/ 50 mls @ 100 mls/hr 06/08/24 12:45 06/08/24 12:47 Sodium Chloride IV 06/18/24 12:44 100 mls/hr Q24H JANIA Administration Ketorolac Tromethamine 15 mg 06/08/24 12:06 06/08/24 12:10 Ketorolac 30mg/Ml Vial IV 06/08/24 12:07 15 mg ONCE ONE Administration Ondansetron HCl 4 mg 06/08/24 12:06 06/08/24 12:10 Ondansetron 4mg/2ml Vial IV 06/08/24 12:07 4 mg ONCE ONE Administration ORDERS Category Date Time Status CT abdomen pelvis wo con Stat Cat Scan 06/08/24 12:13 Completed CBC w/Auto Diff [Complete Blood Count Auto Diff] Stat Lab 06/08/24 12:05 Completed CMP [Comprehensive Metabolic Panel] Stat Lab 06/08/24 12:05 Completed Procalcitonin Stat Lab 06/08/24 12:05 Completed UA [Urinalysis and Microscopic] Stat Lab 06/08/24 11:55 Completed Medical Decision Narrative: In summary patient is a 68-year-old male who presents to the emergency department for evaluation of right flank pain. Patient is hemodynamically stable the blood pressure 141/93 pulse 65 with normal sinus rhythm on bedside monitor breathing 16 times a minute satting at 97% on room air upon arrival, febrile at 90.1. Physical exam is remarkable for right sided mid lateral abdominal pain on palpation and in the right flank however he has CVA tenderness to percussion. Bowel sounds normoactive no rebound or guarding no rigidity.. Differential diagnosis includes kidney stone versus obstruction versus complicated UTI etc. Initial workup will be conducted with hematologic labs CT scan stone protocol urinalysis. Initial interventions include crystalloid bolus Toradol Tylenol Zofran Dilaudid. Patient is allergic to tamsulosin so we will defer that. Initial workup reviewed by me and urinalysis shows 3+ blood but otherwise is bland, hematologic labs are significant for white count of 11 with a neutrophilic shift and the remainder of his hematologic labs are nonactionable. My informal interpretation of his CT scan shows an obstructing right ureteral stone with hydroureteronephrosis and perinephric stranding prior to radiology read. Given his white count and CT findings I have started the patient on Rocephin with 1 g given here.. Upon repeat evaluation reported symptomatic relief after initial intervention. Given this I had a shared decision-making discussion with the patient and he would like for us to try and contact Dr. Young at [facility] [place] who is his urologist. Given that I have placed a call at 1300 hrs. to the on-call center at [facility]. I have spoken with both Dr. Young and the hospitalist service about patient presentation JOHNSON and management at [facility] and patient has been accepted in transfer to a [facility] bed in care of Dr. Andrea [facility] for intervention by Dr. Campbell tomorrow. I was consulted by the PARDEEP, and we discussed the complexity of the problems being addressed. I approved the treatment and management plan for this patient's care in the Emergency Department, thus performing a substantive portion of the medical decision making. Simon Alvarenga MD Critical Care <NUZHAT Starr - Last Filed: 06/08/24 13:40> Critical Care Time Critical Care Time: Yes Attestation: On 06/08/24, the high probability of a clinically significant, sudden or life threatening deterioration of the following system(s) required my full and direct attention, intervention and personal management. The time I documented below is in addition to time spent performing reported procedures but includes the following listed in this critical care notation. Total Time Total Critical Care Time: 35
[2024-06-08 12:12] LABS: Bacteria,Urine Trace /lpf
--- NOTE | 2024-06-08 12:13 | CT_ITS ---
FINAL REPORT TECHNIQUE: Thin section axial images were obtained from the lung bases to the pubic symphysis without IV contrast. Coronal reconstruction images were obtained from the axial data. Exam was performed using dose reduction technique. CLINICAL HISTORY: Right flank pain, H/O kidney stones COMPARISON: 05/07/2023 FINDINGS: There is new moderate right hydronephrosis and hydroureter to the level of an obstructing 12 mm stone in the proximal right ureter. Bilateral nonobstructing renal stones are noted. The previously seen obstructing left UVJ stone is no longer seen. Status post cholecystectomy. Fatty infiltration of the liver. The spleen, adrenal glands, and pancreas are without acute abnormality. There is no evidence of small bowel obstruction. The appendix is normal. Diverticulosis without evidence of diverticulitis. There is no lymphadenopathy or ascites. No acute osseous abnormality is identified. IMPRESSION: Obstructing 12 mm proximal right ureteral stone. Bilateral nonobstructing renal stones. Reviewed, Interpreted and Dictated by Kyra Alberto MD Transcribed by Yolande Hoffman Authenticated and . [facility]
--- OUTSIDE RECORDS SUMMARY | 2024-06-08 12:17 | XMS_ITS | Clinical Summary ---
Author Organization [facility] Address [address] [place] [address] Phone Care Team Providers Care Material Expediter Name Role Phone Alpesh DE LA O, Luciano [facility] [phone] DESIREE LEE MD Primary Care Provider [phone] Reason for Visit and Chief Complaint [Patient Encounter] Problems Includes: Problems addressed during this encounter and other active Problems All Visits Onset Date Resolved Date Provider Condition S tatus Joint Pain in the Right Knee 02/04/2024 Luanne NOLAND Active Last Documented On 4 11:52AM ; [facility] History of Pain in the Hands 12/05/2020 Bradley Dale MD Active Last Documented On 1 8:44AM ; [facility] Joint Pain, Localized in the Shoulder 10/24/2020 José Miguel Small MD Active Last Documented On 1 8:32AM ; [facility] Lower Back Pain 09/17/2020 Rush Day MD Act esthela Last Documented On 1 2:11PM ; [facility] Plan of Treatment Pending Tests Order Diagnosis Results Due Ordering P rovider Therapy - Physical Therapy Knee 01/22/24 Luciano Betts MD Last Documented On 4 4:56PM ; [facility] Future Appointments Date Time Location Provi taz Follow Up 06/14/2024 8:45AM [facility] SHANNON Betts MD Last Documented On 5 1:22PM ; [facility] Assessments Includes: Assessments from this encounter No Assessments Recorded Medical Equipment - Implanted Devices Includes: Current Devices No Medical Equipment Recorded Medications Includes: Medications discussed during this encounter and other current Medications Current Medications (continue as prescribed) Meloxicam 15 MG Oral Tablet 04/26/2024 - 07/25/2024 Pr ovider: Luciano Betts MD Diagnosis: 1 every bedtime Last Documented On 5 1:36PM By Luciano Betts ; [facility] Atorvastatin Calcium 10 MG Oral Tablet 02/16/2024 Pr ovider: Lolita Belcher APRN Diagnosis: Last Documented On 5 8:50AM By Grady Brewster ; [facility] traMADol HCl 50 MG Oral Tablet 02/12/2024 Provider: Luciano Betts MD Diagnosis: Last Documented On 5 8:50AM By Grady Brewster ; [facility] oxyCODONE HCl 5 MG Oral Tablet 02/11/2024 Provider: Luciano Betts MD Diagnosis: Last Documented On 5 8:50AM By Grady Brewster ; [facility] Metoprolol Succinate ER 50 M G Oral Tablet Extended Release 24 Hour 02/08/2024 Provider: Lolita Cabral Diagnosis: Last Documented On 5 8:50AM By Grady Brewster ; [facility] Pregabalin 100 MG Oral Capsule 02/04/2024 Provider: Diagnosis: Last Documented On 4 12:08PM By Iadnia Rocha ; [facility] Vitamin C Oral Capsule 02/04/2024 Provider: Diagnosis: Last Documented On 4 12:08PM By Idania Rocha ; [facility] Adult Aspirin Regimen 81 MG Oral Tablet Delayed Releas e 02/04/2024 Provider: Diagnosis: Last Documented On 4 12:08PM By Idania Rocha ; [facility] Multi Vitamin Oral Tablet 02/04/2024 Provider: Diagnosis: Last Documented On 4 12:09PM By Idania Rocha ; [facility] Diclofenac Sodium 75 MG Oral Tablet Delayed Release Provider: Diagnosis: Last Documented On 4 12:07PM By Idania Rocha ; [facility] Fenofibrate 160 MG Oral Tablet 02/04/2024 Provider: Diagnosis: Last Documented On 4 12:07PM By Idania Rocha ; [facility] Prasugrel HCl 10 MG Oral Tablet 02/04/2024 Provider: Diagnosis: Last Documented On 4 12:07PM By Idania Rocha ; [facility] Metoprolol Succinate ER 50 M G Oral Tablet Extended Release 24 Hour 02/04/2024 Provider: Diagnosis: Last Documented On 4 12:06PM By Idania Rocha ; [facility] Allopurinol 300 MG Oral Tablet 02/04/2024 Provider: Diagnosis: Last Documented On 4 12:06PM By Idania Rocha ; [facility] Diclofenac Sodium 75 MG Oral Tablet Delayed Release Provider: Diagnosis: Last Documented On 5 8:50AM By Grady Brewster ; [facility] Baclofen 5 MG Oral Tablet 12/31/2023 Provider: Hossein Day APRN Diagnosis: Last Documented On 5 8:50AM By Grady Brewster ; [facility] Atorvastatin Calcium 10 MG Oral Tablet 04/30/2022 Pr ovider: Diagnosis: Last Documented On 3 8:52AM By Caroline Patton ; [facility] Levothyroxine Sodium 100 MCG Oral Capsule 04/30/2022 Provider: Diagnosis: Last Documented On 3 8:52AM By Caroline Patton ; [facility] Medications Administered Includes: Administered Medications from this encounter No Administered Medications Recorded Results Includes: Results discussed during this encounter No Results Recorded For Specified Dates History of Present Illness Includes: History of Present Illness from this encounter No History of Present Illness Recorded Social History No Social History Recorded - Smoking Status Unknown Medical History Includes: Medical History addressed during this encounter No Medical History Recorded Family History Includes: Family History addressed during this encounter No Family History Recorded Review of Systems Includes: Review of Systems from this encounter No Review of Systems Recorded Mental Status Includes: Mental Status from this encounter No Mental Status Recorded Functional Status Includes: Functional Status from this encounter No Functional Status Recorded Physical Exam Includes: Physical Exam from this encounter No Physical Exam Recorded Allergies Includes: Active Allergies Substance Type Reaction Onset Date Resolved Date Statu s Lisinopril Allergy 02/04/2024 Active Last Documented On 04/26/2024 12:56PM ; [facility] Note: Swelling in Throat, unable to swal low-Major Encounters Encounter Provider Location Date Check-In Time Check-Out Time Diagnosis [Patient Encounter] Luciano Betts MD 02/12/2024 4:55PM 11:59PM Insurance Includes: Active Insurance Policies Plan Name Member ID Group # Subscriber Relationship Effect esthela Dates 1 - Medicare Part B [facility] [id number] Jose G Germain Self 10/17/2018 - Unknown 2 - [facility] [employer] [facility] [id number] Jose G Germain Self 10/17/2018 - Unknown Clinical Notes Includes: Clinical Notes from this encounter No Clinical Notes Recorded
--- OUTSIDE RECORDS SUMMARY | 2024-06-08 12:17 | XMS_ITS | Clinical Summary ---
Author Organization [facility] Address [address] [place] [address] Phone Care Team Providers Care Wired Sweatband Cutter Name Role Phone Alpesh DE LA O, Luciano Unavailable [phone] DESIREE LEE MD Primary Care Provider [phone] Reason for Visit and Chief Complaint The Chief Complaint is: PO R Knee Scope Problems Includes: Problems addressed during this encounter and other active Problems Current Visit Onset Date Resolved Date Provider Conditio n Status Lower Back Pain 09/17/2020 Rush Day MD Act esthela Last Documented On 1 2:11PM ; [facility], [facility] Past Visits Onset Date Resolved Date Provider Condition Status Joint Pain in the Right Knee 02/04/2024 Luanne NOLAND Active Last Documented On 4 11:52AM ; [facility], [facility] History of Pain in the Hands 12/05/2020 Bradley Dale MD Active Last Documented On 1 8:44AM ; [facility], [facility] Joint Pain, Localized in the Shoulder 10/24/2020 José Miguel Small MD Active Last Documented On 1 8:32AM ; [facility], [facility] Plan of Treatment Fall Risk Assessment: This patient has been identified as a fall risk. Balance/gait along with postural blood pressure, vision and home fall hazards have been assessed. Medications have been reviewed, and recommendations made with regard to contributing factors for future falls. Plan of care: Consideration of vitamin D supplementation along with balance and strength training with consideration for formal physical therapy has been discussed with the patient. - Last Documented On 03/15/2024 9:12AM ; [facility] Patient will continue home exercise program follow up in 2 months for recheck - Last Documented On 03/15/2024 9:12AM ; [facility], [facility] Future Appointments Date Time Location Provi taz Follow Up 06/14/2024 8:45AM [facility] SHANNON Betts MD Last Documented On 5 1:22PM ; [facility] Instructions to patient Intervention and counseling on cessation of tobacco use Last Documented On 5 8:51AM ; [facility] Lose weight Last Documented On 5 8:51AM ; [facility] Assessments Includes: Assessments from this encounter No Assessments Recorded Instructions Includes: Instructions from this encounter Instructions to patient Intervention and counseling on cessation of tobacco use Last Documented On 5 8:51AM ; [facility] Lose weight Last Documented On 5 8:51AM ; [facility] Medical Equipment - Implanted Devices Includes: Current Devices No Medical Equipment Recorded Medications Includes: Medications discussed during this encounter and other current Medications Current Medications (continue as prescribed) Meloxicam 15 MG Oral Tablet 04/26/2024 - 07/25/2024 Pr ovider: Luciano Betts MD Diagnosis: 1 every bedtime Last Documented On 5 1:36PM By Luciano Betts ; [facility] Atorvastatin Calcium 10 MG Oral Tablet 02/16/2024 Pr ovider: Lolita Belcher APRN Diagnosis: Last Documented On 5 8:50AM By Grady Brewster ; [facility], [facility] traMADol HCl 50 MG Oral Tablet 02/12/2024 Provider: Luciano Betts MD Diagnosis: Last Documented On 5 8:50AM By Grady Brewster ; [facility], [facility] oxyCODONE HCl 5 MG Oral Tablet 02/11/2024 Provider: Luciano Betts MD Diagnosis: Last Documented On 5 8:50AM By Grady Brewster ; [facility], [facility] Metoprolol Succinate ER 50 M G Oral Tablet Extended Release 24 Hour 02/08/2024 Provider: Lolita Cabral Diagnosis: Last Documented On 5 8:50AM By Grady Brewster ; [facility], [facility] Pregabalin 100 MG Oral Capsule 02/04/2024 Provider: Diagnosis: Last Documented On 4 12:08PM By Idania Rocha ; [facility], [facility] Vitamin C Oral Capsule 02/04/2024 Provider: Diagnosis: Last Documented On 4 12:08PM By Idania Rocha ; [facility], [facility] Adult Aspirin Regimen 81 MG Oral Tablet Delayed Releas e 02/04/2024 Provider: Diagnosis: Last Documented On 4 12:08PM By Idania Rocha ; [facility] Multi Vitamin Oral Tablet 02/04/2024 Provider: Diagnosis: Last Documented On 4 12:09PM By Idania Rocha ; [facility] Diclofenac Sodium 75 MG Oral Tablet Delayed Release Provider: Diagnosis: Last Documented On 4 12:07PM By Idania Rocha ; [facility], [facility] Fenofibrate 160 MG Oral Tablet 02/04/2024 Provider: Diagnosis: Last Documented On 4 12:07PM By Idania Rocha ; [facility], [facility] Prasugrel HCl 10 MG Oral Tablet 02/04/2024 Provider: Diagnosis: Last Documented On 4 12:07PM By Idania Rocha ; [facility], [facility] Metoprolol Succinate ER 50 M G Oral Tablet Extended Release 24 Hour 02/04/2024 Provider: Diagnosis: Last Documented On 4 12:06PM By Idania Rocha ; [facility], [facility] Allopurinol 300 MG Oral Tablet 02/04/2024 Provider: Diagnosis: Last Documented On 4 12:06PM By Idania Rocha ; [facility], [facility] Diclofenac Sodium 75 MG Oral Tablet Delayed Release Provider: Diagnosis: Last Documented On 5 8:50AM By Grady Brewster ; [facility] Baclofen 5 MG Oral Tablet 12/31/2023 Provider: Hossein Day APRN Diagnosis: Last Documented On 5 8:50AM By Grady Brewster ; [facility] Atorvastatin Calcium 10 MG Oral Tablet 04/30/2022 Pr ovider: Diagnosis: Last Documented On 3 8:52AM By Caroline Patton ; [facility] Levothyroxine Sodium 100 MCG Oral Capsule 04/30/2022 Provider: Diagnosis: Last Documented On 3 8:52AM By Caroline Patton ; [facility], [facility] Past Medications on file traMADol HCl 50 MG Oral Tablet 02/12/2024 - 02/22/2024 Provider: Luciano Betts MD Diagnosis: 1-2 po q 4-6h PRN for breakthrough post op pain Last Documented On 4 9:05AM By Luciano Betts ; [facility] Ondansetron HCl 4 MG Oral Tablet 02/11/2024 - 02/24/19 Provider: Luciano Betts MD Diagnosis: 1-2 p o q 6-8h as needed for nausea Last Documented On 4 11:27AM By Luciano Betts ; [facility], [facility] oxyCODONE HCl 5 MG Oral Tablet 02/11/2024 - 02/15/2024 Provider: Luciano Betts MD Diagnosis: 1 po q 4h 1 tablet by mouth every 4 hours for post op pain MAXIMUM 6 TABLETS PER DAY Last Documented On 4 11:27AM By Luciano Betts ; [facility] Aspirin Adult Low Strength 8 1 MG Oral Tablet Delayed Release 02/11/2024 - 03/27/2024 Provider: Luciano Betts MD Diagnosis: twice a day Last Documented On 4 11:27AM By Luciano Betts ; [facility], [facility] Allopurinol 300 MG Oral Tablet 04/30/2022 - 05/30/2022 Provider: DESIREE LEE MD Diagnosis: Last Documented On 3 8:52AM By Caroline Patton ; [facility], [facility] Ibuprofen 400 MG Oral Tablet 02/14/2021 - 02/17/2021 P nikider: Bradley Dale MD Diagnosis: Take 1 tablet every 8 hrs prn pain Last Documented On 1 10:12AM By Shalini Guzman ; [facility], [facility] Zofran 4 MG Oral Tablet 01/15/2021 - 01/25/2021 Provid er: José Miguel Small MD Diagnosis: Take 1 tablet every 8 hrs pr n pain Take 1 tablet every 8 hrs prn post op nausea Last Documented On 1 7:18AM By José Miguel Small ; [facility] oxyCODONE HCl 5 MG Oral Tablet 01/15/2021 - 01/20/2021 Provider: José Miguel dunn MD Diagnosis: 1-2 po q 4-6h prn post op pain Last Documented On 1 7:20AM By José Miguel Small ; [facility] Medications Administered Includes: Administered Medications from this encounter No Administered Medications Recorded Vital Signs Includes: Vital Signs from this encounter Vital Name 03/15/2024 09:02A Height (in) 73 Weight (lb) 235 Body Mass Index 31 Body Surface Area 2.3 Pain Level 1 Last Documented: On 03/15/2024 9:02AM ; [facility] Results Includes: Results discussed during this encounter No Results Recorded For Specified Dates History of Present Illness Includes: History of Present Illness from this encounter ADILENE Germain is a 68 year old male. - Allergy list reviewed - Problem list reviewed - Medication list reviewed Follow up right knee medial meniscus root repair doing well now 1 month out Social History Description Last Updated Alcohol use 04/30/2022 Last Documented On 5 8:51AM ; [facility] Caffeine use 04/30/2022 Last Documented On 5 8:51AM ; [facility] Exercising regularly 04/30/2022 Last Documented On 5 8:51AM ; [facility] Yes, current smoker. 04/30/2022 Last Documented On 5 8:51AM ; [facility] No recent change in diet 04/30/2022 Last Documented On 5 8:51AM ; [facility] Not using drugs 04/30/2022 Last Documented On 5 8:51AM ; [facility] Tobacco use 04/30/2022 Last Documented On 5 8:51AM ; [facility] Smoker occasional cigar 03/11/2021 Last Documented On 5 8:51AM ; [facility] No recent change in diet 09/17/2020 Last Documented On 5 8:51AM ; [facility] Yes, current smoker. 09/17/2020 Last Documented On 5 8:51AM ; [facility] Smoking Status Unknown Procedures and Surgical History Includes: Procedures from this encounter Procedures Code Diagnosis Performing Provider Service L ocation Service Date intervention and counseling on cessation of tobacco use 4000F Last Documented On 5 8:51AM ; [facility], [facility] use of tobacco assessment performed 1000F Last Documented On 5 8:51AM ; [facility], [facility] patient screened for future fall risk: documentation of any fall with injury in past year 1100F Last Documented On 5 8:51AM ; [facility], [facility] EMG was performed 31386 Last Documented On 5 8:51AM ; [facility], [facility] brace Last Documented On 5 8:51AM ; [facility] Surgical History Last Updated Past Surgical History: thyro id removed / Kidney Stone Extraction / Rotator Cuff Repair 04/30/2022 Last Documented On 5 8:51AM ; [facility], [facility] Medical History Includes: Medical History addressed during this encounter Description Last Updated History of arthritis 04/30/2022 Last Documented On 5 8:51AM ; [facility], [facility] History of heart disease 04/30/2022 Last Documented On 5 8:51AM ; [facility], [facility] History of History of Cancer 04/30/2022 Last Documented On 5 8:51AM ; [facility] History of History of Gallbladder 2022 Last Documented On 5 8:51AM ; [facility] History of Liver Disease 04/30/2022 Last Documented On 5 8:51AM ; [facility] History of Thyroid Disease 04/30/2022 Last Documented On 5 8:51AM ; [facility] Arthritis 09/17/2020 Last Documented On 5 8:51AM ; [facility] History of Cancer thyroid 09/17/2020 Last Documented On 5 8:51AM ; [facility] History of Gallbladder RCT repair 2020 Last Documented On 5 8:51AM ; [facility] Liver Disease 09/17/2020 Last Documented On 5 8:51AM ; [facility] No recent immunization for flu 1 Last Documented On 5 8:51AM ; [facility], [facility] No recent immunization for pneumococcal pneumonia 09/17/2020 Last Documented On 5 8:51AM ; [facility] Thyroid Disease 09/17/2020 Last Documented On 5 8:51AM ; [facility], [facility] Family History Includes: Family History addressed during this encounter Description Last Updated Paternal history of family history of he art disease 04/30/2022 Last Documented On 5 8:51AM ; [facility] Family history of heart disease 09/18/19 21 Last Documented On 5 8:51AM ; [facility] Family history of rheumatoid arthritis 0 09/17/2020 Last Documented On 5 8:51AM ; [facility], [facility] Review of Systems Includes: Review of Systems from this encounter Systemic: Not feeling tired, no recent weight loss, and no recent weight gain. Head: No headache and no sinus pain. Eyes: No vision problems, no Cataracts, no Glasses/Contacts, and no Glaucoma. Otolaryngeal: No hearing loss and no tinnitus. Cardiovascular: No chest pain or discomfort, no palpitations, and no Hypertension. High Cholesterol. Pulmonary: No daytime asthma symptoms and no chronic cough. No wheezing. Gastrointestinal: No heartburn and no abdominal pain. No Indigestion, no Peptic Ulcer, no GI Stomach Bleed, no Ulcers, and no Acid Reflux. Endocrine: No hot flashes, no muscle weakness, no Diabetes, no Hypothyroid, and no Hyperthyroid. Hematologic: No easy bleeding. A tendency for easy bruising. No Anemia. Musculoskeletal: Arthritis. No lower back pain. No soft tissue swelling and no localized joint pain. Neurological: No dizziness, no convulsions, and no numbness. Psychological: No anxiety, no emotional lability, no depression, and no insomnia. Not crying for no reason. Skin: No dry skin. No Ulcers, no Scars, and no rash. Allergic and Immunologic: No complaint of seasonal allergic reaction. Mental Status Includes: Mental Status from this encounter Description No anxiety Functional Status Includes: Functional Status from this encounter No Functional Status Recorded Physical Exam Includes: Physical Exam from this encounter Allergies Includes: Active Allergies Substance Type Reaction Onset Date Resolved Date Statu s Lisinopril Allergy 02/04/2024 Active Last Documented On 04/26/2024 12:56PM ; [facility] Note: Swelling in Throat, unable to swal low-Major Encounters Encounter Provider Location Date Check-In Time Check- Out Time Diagnosis Post Op Luciano Betts MD [facility] 5 8:49AM 9:12AM Insurance Includes: Active Insurance Policies Plan Name Member ID Group # Subscriber Relationship Effect esthela Dates 1 - Medicare Part B [facility] [id number] Jose G Germain Self 10/17/2018 - Unknown 2 - [employer] [id number] Jose G Germain Self 10/17/2018 - Unknown Clinical Notes Includes: Clinical Notes from this encounter * Progress note Date Encounter Last Documented by 03/15/2024 Post Op Last documented on 03/15/2024; 9:12 AM, Luciano Betts MD; [facility] Active Problems & Conditions - History of Pain in the Hands - Joint Pain in the Right Knee - Joint Pain, Localized in the Shoulder - Lower Back Pain Chief Complaint The Chief Complaint is: PO R Knee Scope. Referred Here Referred by. History of Present Illness Jose G Germain is a 68 year old male. - Allergy list reviewed - Problem list reviewed - Medication list reviewed Follow up right knee medial meniscus root repair doing well now 1 month out Current Medication - Adult Aspirin Regimen 81 MG Oral Tablet Delayed Release take as directed 0 days, 0 refills - Allopurinol 300 MG Oral Tablet take as directed 0 days, 0 refills - Aspirin Adult Low Strength 81 MG Oral Tablet Delayed Release twice a day, 45 days, 0 refills - Atorvastatin Calcium 10 MG Oral Tablet take as directed 0 days, 0 refills - Atorvastatin Calcium 10 MG Oral Tablet 90 days, 0 refills - Baclofen 5 MG Oral Tablet 14 days, 0 refills - Diclofenac Sodium 75 MG Oral Tablet Delayed Release take as directed 0 days, 0 refills - Diclofenac Sodium 75 MG Oral Tablet Delayed Release 30 days, 0 refills - Fenofibrate 160 MG Oral Tablet take as directed 0 days, 0 refills - Levothyroxine Sodium 100 MCG Oral Capsule take as directed 0 days, 0 refills - Metoprolol Succinate ER 50 MG Oral Tablet Extended Release 24 Hour take as directed 0 days, 0 refills - Metoprolol Succinate ER 50 MG Oral Tablet Extended Release 24 Hour 90 days, 0 refills - Multi Vitamin Oral Tablet take as directed 0 days, 0 refills - oxyCODONE HCl 5 MG Oral Tablet 4 days, 0 refills - Prasugrel HCl 10 MG Oral Tablet take as directed 0 days, 0 refills - Pregabalin 100 MG Oral Capsule take as directed 0 days, 0 refills - traMADol HCl 50 MG Oral Tablet 10 days, 0 refills - Vitamin C Oral Capsule take as directed 0 days, 0 refills Past Medical/Surgical History Reported: Immunization History: No recent immunization for flu and not for pneumococcal pneumonia. Diagnoses: Heart disease. History of Cancer thyroid. History of Cancer. Thyroid Disease. Thyroid Disease. Liver Disease. Liver Disease. Arthritis. Arthritis Surgical: - Past Surgical History: thyroid removed / Kidney Stone Extraction / Rotator Cuff Repair - History of Gallbladder RCT repair - History of Gallbladder Social History Yes, current smoker. Yes, current smoker. Current diet: No recent change in diet. No recent change in diet. Caffeine use: Caffeine use. Tobacco use: Smoker occasional cigar. Alcohol: Alcohol use. Drug Use: Not using drugs. Habits: Exercising regularly. Allergies - Lisinopril Family History Heart disease Rheumatoid arthritis Paternal: Heart disease Review Of Systems Systemic: Not feeling tired, no recent weight loss, and no recent weight gain. Head: No headache and no sinus pain. Eyes: No vision problems, no Cataracts, no Glasses/Contacts, and no Glaucoma. Otolaryngeal: No hearing loss and no tinnitus. Cardiovascular: No chest pain or discomfort, no palpitations, and no Hypertension. High Cholesterol. Pulmonary: No daytime asthma symptoms and no chronic cough. No wheezing. Gastrointestinal: No heartburn and no abdominal pain. No Indigestion, no Peptic Ulcer, no GI Stomach Bleed, no Ulcers, and no Acid Reflux. Endocrine: No hot flashes, no muscle weakness, no Diabetes, no Hypothyroid, and no Hyperthyroid. Hematologic: No easy bleeding. A tendency for easy bruising. No Anemia. Musculoskeletal: Arthritis. No lower back pain. No soft tissue swelling and no localized joint pain. Neurological: No dizziness, no convulsions, and no numbness. Psychological: No anxiety, no emotional lability, no depression, and no insomnia. Not crying for no reason. Skin: No dry skin. No Ulcers, no Scars, and no rash. Allergic and Immunologic: No complaint of seasonal allergic reaction. Physical Findings - Vitals taken 03/15/2024 09:02 am Height 73 in 60 - 80 Weight 235 lbs 121 - 205 Body Mass Index 31 kg/m2 Body Surface Area 2.3 m2 Pain Level 1 Right knee 10 degree flexion contracture to 120 flexion good stability no swelling seen normal gait no mechanical click Previous Tests Laboratory Studies: Neuro-Electrical Functions: EMG. Basic Management Procedures And Services: - Brace Therapy - Intervention and counseling on cessation of tobacco use. Counseling/Education - Lose weight Plan Fall Risk Assessment: This patient has been identified as a fall risk. Balance/gait along with postural blood pressure, vision and home fall hazards have been assessed. Medications have been reviewed, and recommendations made with regard to contributing factors for future falls. Plan of care: Consideration of vitamin D supplementation along with balance and strength training with consideration for formal physical therapy has been discussed with the patient. Patient will continue home exercise program follow up in 2 months for recheck Notes This dictation was done with voice recognition software and may contain errors and omissions. Practice Management Use of tobacco assessment performed and patient screened for future fall risk documentation of any fall with injury in past year. Care Team - DESIREE LEE MD - [employer]
--- OUTSIDE RECORDS SUMMARY | 2024-06-08 12:17 | XMS_ITS | Clinical Summary ---
Author Organization [facility] Address [address] [place] [address] Phone Care Team Providers Care Bowling Floor Desk Clerk Name Role Phone Alpesh DE LA O, Luciano Unavailable [phone] DESIREE LEE MD Primary Care Provider [phone] Reason for Visit and Chief Complaint [facility] Problems Includes: Problems addressed during this encounter and other active Problems All Visits Onset Date Resolved Date Provider Condition S tatus Joint Pain in the Right Knee 02/04/2024 Luanne NOLAND Active Last Documented On 4 11:52AM ; [facility] History of Pain in the Hands 12/05/2020 Bradley Dale MD Active Last Documented On 1 8:44AM ; [facility] Joint Pain, Localized in the Shoulder 10/24/2020 José Miguel Small MD Active Last Documented On 1 8:32AM ; [facility] Lower Back Pain 09/17/2020 Rush Day MD Act esthela Last Documented On 1 2:11PM ; [facility] Plan of Treatment Future Appointments Date Time Location Provi taz Follow Up 06/14/2024 8:45AM [facility] [place] Betts MD Last Documented On 5 1:22PM ; [facility] Assessments Includes: Assessments from this encounter No Assessments Recorded Medical Equipment - Implanted Devices Includes: Current Devices No Medical Equipment Recorded Medications Includes: Medications discussed during this encounter and other current Medications New / Renewed during this visit Luciano Betts MD on 02/12/2024 traMADol HCl 50 MG Oral Tablet Provider: Luciano Betts MD 10 day supply: 40 tablet, 0 refills Diagnosis: 1-2 po q 4-6h PRN for breakt hrough post op pain Pharmacy: [facility] - [id number] [address] Andrew Crum, [phone] - Last Documented On 4 9:05AM By Luciano Betts ; [facility] Current Medications (continue as prescribed) Meloxicam 15 MG Oral Tablet 04/26/2024 - 07/25/2024 Pr ovider: Luciano Betts MD Diagnosis: 1 every bedtime Last Documented On 5 1:36PM By Luciano Betts ; [facility] Atorvastatin Calcium 10 MG Oral Tablet 02/16/2024 Pr ovider: Lolita Belcher APRN Diagnosis: Last Documented On 5 8:50AM By Grady Brewster ; [facility] traMADol HCl 50 MG Oral Tablet 02/12/2024 Provider: Luciano Betts MD Diagnosis: Last Documented On 5 8:50AM By Grady Brewster ; [facility] oxyCODONE HCl 5 MG Oral Tablet 02/11/2024 Provider: Luciano Betts MD Diagnosis: Last Documented On 5 8:50AM By Grady Brewster ; [facility] Metoprolol Succinate ER 50 M G Oral Tablet Extended Release 24 Hour 02/08/2024 Provider: Lolita Cabral Diagnosis: Last Documented On 5 8:50AM By Grady Brewster ; [facility] Pregabalin 100 MG Oral Capsule 02/04/2024 Provider: Diagnosis: Last Documented On 4 12:08PM By Idania Rocha ; [facility] Vitamin C Oral Capsule 02/04/2024 Provider: Diagnosis: Last Documented On 4 12:08PM By Idania Rocha ; [facility] Adult Aspirin Regimen 81 MG Oral Tablet Delayed Releas e 02/04/2024 Provider: Diagnosis: Last Documented On 4 12:08PM By Idania Rocha ; [facility] Multi Vitamin Oral Tablet 02/04/2024 Provider: Diagnosis: Last Documented On 4 12:09PM By Idania Rocha ; [facility] Diclofenac Sodium 75 MG Oral Tablet Delayed Release Provider: Diagnosis: Last Documented On 4 12:07PM By Idania Rocha ; [facility] Fenofibrate 160 MG Oral Tablet 02/04/2024 Provider: Diagnosis: Last Documented On 4 12:07PM By Idania Rocha ; [facility] Prasugrel HCl 10 MG Oral Tablet 02/04/2024 Provider: Diagnosis: Last Documented On 4 12:07PM By Idania Rocha ; [facility] Metoprolol Succinate ER 50 M G Oral Tablet Extended Release 24 Hour 02/04/2024 Provider: Diagnosis: Last Documented On 4 12:06PM By Idania Rocha ; [facility] Allopurinol 300 MG Oral Tablet 02/04/2024 Provider: Diagnosis: Last Documented On 4 12:06PM By Idania Rocha ; [facility] Diclofenac Sodium 75 MG Oral Tablet Delayed Release Provider: Diagnosis: Last Documented On 5 8:50AM By Grady Brewster ; [facility] Baclofen 5 MG Oral Tablet 12/31/2023 Provider: Hossein Day APRN Diagnosis: Last Documented On 5 8:50AM By Grady Brewster ; [facility] Atorvastatin Calcium 10 MG Oral Tablet 04/30/2022 Pr ovider: Diagnosis: Last Documented On 3 8:52AM By Caroline Patton ; [facility] Levothyroxine Sodium 100 MCG Oral Capsule 04/30/2022 Provider: Diagnosis: Last Documented On 3 8:52AM By Caroline Patton ; [facility] Medications Administered Includes: Administered Medications from this encounter No Administered Medications Recorded Results Includes: Results discussed during this encounter No Results Recorded For Specified Dates History of Present Illness Includes: History of Present Illness from this encounter No History of Present Illness Recorded Social History No Social History Recorded - Smoking Status Unknown Procedures and Surgical History Includes: Procedures from this encounter Procedures Code Diagnosis Performing Provider Service Location Service Date TREATMENT OF THIGH FRACTURE (RIGHT) 18524 Stress fracture, right femur, initial encounter for fracture Luciano Betts MD [facility] Surgical Division 02/12/2024 Last Documented On 4 11:03AM ; [facility] med OR lat Meniscus REPAIR (Distinct procedure, RIGHT) 15523 Oth tear of medial meniscus, current injury, r knee, init Luciano Betts MD [facility] Surgical [facility] 02/12/2024 Last Documented On 4 11:03AM ; [facility] Medical History Includes: Medical History addressed during [...] Last Documented On 04/26/2024 12:56PM ; [facility] Note: Swelling in Throat, unable to swal low-Major Encounters Encounter Provider Location Date Check-In Time Check-Out Time Diagnosis [facility] Luciano Betts MD Surgery 4 02/11/2024 11:17AM 11:59PM Insurance Includes: Active Insurance Policies Plan Name Member ID Group # Subscriber Relationship Effect esthela Dates 1 - Medicare Part B [facility] [id number] Jose G Germain Self 10/17/2018 - Unknown 2 - [facility] [id number] Jose G Germain Self 10/17/2018 - Unknown Clinical Notes Includes: Clinical Notes from this encounter No Clinical Notes Recorded
--- OUTSIDE RECORDS SUMMARY | 2024-06-08 12:18 | XMS_ITS | Clinical Summary ---
Author Organization [facility] Address [address] [place] [address] Phone Care Team Providers Care Clinical Support Associate Name Role Phone Alpesh DE LA O, Luciano Unavailable [phone] DESIREE LEE MD Primary Care Provider [phone] Reason for Visit and Chief Complaint The Chief Complaint is: PO R Knee Scope Problems Includes: Problems addressed during this encounter and other active Problems Current Visit Onset Date Resolved Date Provider Conditio n Status Lower Back Pain 09/17/2020 Rush Day MD Act esthela Last Documented On 1 2:11PM ; [facility] Past Visits Onset Date Resolved Date Provider Condition Status Joint Pain in the Right Knee 02/04/2024 Luanne NOLAND Active Last Documented On 4 11:52AM ; [facility] History of Pain in the Hands 12/05/2020 Bradley Dale MD Active Last Documented On 1 8:44AM ; [facility] Joint Pain, Localized in the Shoulder 10/24/2020 José Miguel Small MD Active Last Documented On 1 8:32AM ; [facility] Plan of Treatment Fall Risk Assessment: This [...] with the patient. - Last Documented On 02/26/2024 10:53AM ; [facility] Patient was seen by myself Herman Germain PA-C. Patient will follow up [address] Betts he is behind with his range motion at this point in time still emphasize motion he can do quad sets straight leg raises continue to be toe-touch weight-bearing he is going to start physical therapy at our facility hopefully as soon as he can. Continue to ice his knee. Sutures taken out today. - Last Documented On 02/26/2024 10:53AM ; [facility] Pending Tests Order Diagnosis Results Due Ordering P rovider Therapy - Physical Therapy Knee Pain in right knee 0 02/26/24 Herman Germain PA-C Last Documented On 5 10:53AM ; [facility] Future Appointments Date Time Location Provi taz Follow Up 06/14/2024 8:45AM [facility] SHANNON Betts MD Last Documented On 1:22PM ; [facility] Instructions to patient Intervention and counseling on cessation of tobacco use Last Documented On 5 9:43AM ; [facility] Lose weight Last Documented On 5 9:43AM ; [facility] Assessments Includes: Assessments from this encounter Findings Right knee scope medial meniscus root repair in fixation of insufficiency fracture of the medial femoral condyle 02/12/2024 - Last Documented On 02/26/2024 10:53AM ; [facility] Instructions Includes: Instructions from this encounter Instructions to patient Intervention and counseling on cessation of tobacco use Last Documented On 5 9:43AM ; [facility] Lose weight Last Documented On 9:43AM ; [facility] Medical Equipment - Implanted Devices Includes: Current Devices No Medical Equipment Recorded Medications Includes: Medications discussed during this encounter and other current Medications Current Medications (continue as prescribed) Meloxicam 15 MG Oral Tablet 04/26/2024 - 07/25/2024 Pr ovider: Luciano Betts MD Diagnosis: 1 every bedtime Last Documented On 5 1:36PM By Luciano Betts ; [facility] Atorvastatin Calcium 10 MG Oral Tablet 02/16/2024 Pr ovider: Lolita Belcher APRN Diagnosis: Last Documented On 5 8:50AM By Grady Tello [facility] traMADol HCl 50 MG Oral Tablet 02/12/2024 Provider: Luciano Betts MD Diagnosis: Last Documented On 5 8:50AM By Grady Brewster ; [facility] oxyCODONE HCl 5 MG Oral Tablet 02/11/2024 Provider: Luciano Betts MD Diagnosis: Last Documented On 5 8:50AM By Grady Brewster ; [facility] Metoprolol Succinate ER 50 M G Oral Tablet Extended Release 24 Hour 02/08/2024 Provider: Lolita Cabral Diagnosis: Last Documented On 5 8:50AM By Grady Brewster ; [facility] Pregabalin 100 MG Oral Capsule 02/04/2024 Provider: Diagnosis: Last Documented On 4 12:08PM By Idania Rocha ; [facility] Vitamin C Oral Capsule 02/04/2024 Provider: Diagnosis: Last Documented On 4 12:08PM By Idania Rocha ; [facility] Adult Aspirin Regimen 81 MG Oral Tablet Delayed Releas e 02/04/2024 Provider: Diagnosis: Last Documented On 4 12:08PM By Idania Rocha ; [facility] Multi Vitamin Oral Tablet 02/04/2024 Provider: Diagnosis: Last Documented On 4 12:09PM By Idania Rocha ; [facility] Diclofenac Sodium 75 MG Oral Tablet Delayed Release Provider: Diagnosis: Last Documented On 4 12:07PM By Idania Rocha ; [facility] Fenofibrate 160 MG Oral Tablet 02/04/2024 Provider: Diagnosis: Last Documented On 4 12:07PM By Idania Rocha ; [facility] Prasugrel HCl 10 MG Oral Tablet 02/04/2024 Provider: Diagnosis: Last Documented On 4 12:07PM By Idania Rocha ; [facility] Metoprolol Succinate ER 50 M G Oral Tablet Extended Release 24 Hour 02/04/2024 Provider: Diagnosis: Last Documented On 4 12:06PM By Idania Rocha ; [facility] Allopurinol 300 MG Oral Tablet 02/04/2024 Provider: Diagnosis: Last Documented On 4 12:06PM By Idania Rocha ; [facility] Diclofenac Sodium 75 MG Oral Tablet Delayed Release Provider: Diagnosis: Last Documented On 5 8:50AM By Grady Brewster ; [facility] Baclofen 5 MG Oral Tablet 12/31/2023 Provider: Hossein Day APRN Diagnosis: Last Documented On 5 8:50AM By Grady Brewster ; [facility] Atorvastatin Calcium 10 MG Oral Tablet 04/30/2022 Pr ovider: Diagnosis: Last Documented On 3 8:52AM By Caroline Patton ; [facility] Levothyroxine Sodium 100 MCG Oral Capsule 04/30/2022 Provider: Diagnosis: Last Documented On 3 8:52AM By Caroline Patton ; [facility] Past Medications on file traMADol HCl 50 MG Oral Tablet 02/12/2024 - 02/22/2024 Provider: Luciano Betts MD Diagnosis: 1-2 po q 4-6h PRN for breakthrough post op pain Last Documented On 4 9:05AM By Luciano Betts ; [facility] Ondansetron HCl 4 MG Oral Tablet 02/11/2024 - 02/24/19 Provider: Luciano Betts MD Diagnosis: 1-2 p o q 6-8h as needed for nausea Last Documented On 4 11:27AM By Luciano Betts ; [facility] oxyCODONE HCl 5 MG Oral Tablet 02/11/2024 - 02/15/2024 Provider: Luciano Betts MD Diagnosis: 1 po q 4h 1 tablet by mouth every 4 hours for post op pain MAXIMUM 6 TABLETS PER DAY Last Documented On 4 11:27AM By Luciano Betts ; [facility] Aspirin Adult Low Strength 8 1 MG Oral Tablet Delayed Release 02/11/2024 - 03/27/2024 Provider: Luciano Betts MD Diagnosis: twice a day Last Documented On 4 11:27AM By Luciano Betts ; [facility] Allopurinol 300 MG Oral Tablet 04/30/2022 - 05/30/2022 Provider: DESIREE LEE MD Diagnosis: Last Documented On 3 8:52AM By Caroline Patton ; [facility] Ibuprofen 400 MG Oral Tablet 02/14/2021 - 02/17/2021 Max strickland: Bradley Dale MD Diagnosis: Take 1 tablet every 8 hrs prn pain Last Documented On 1 10:12AM By Shalini Guzman ; [facility] Zofran 4 MG Oral Tablet 01/15/2021 - 01/25/2021 Provid er: José Miguel Small MD Diagnosis: Take 1 tablet every 8 hrs pr n pain Take 1 tablet every 8 hrs prn post op nausea Last Documented On 1 7:18AM By José Miguel Small ; [facility] oxyCODONE HCl 5 MG Oral Tablet 01/15/2021 - 01/20/2021 Provider: José Miguel dunn MD Diagnosis: 1-2 po q 4-6h prn post op pain Last Documented On 1 7:20AM By José Miguel Small ; [facility] Medications Administered Includes: Administered Medications from this encounter No Administered Medications Recorded Vital Signs Includes: Vital Signs from this encounter Vital Name 02/26/2024 09:57A Height (in) 73 Weight (lb) 235 Body Mass Index 31 Body Surface Area 2.3 Pain Level 2 Last Documented: On 02/26/2024 9:57AM ; [facility] Results Includes: Results discussed during this encounter No Results Recorded For Specified Dates History of Present Illness Includes: History of Present Illness from this encounter ADILENE Germain is a 68 year old male. - Allergy list reviewed - Problem list reviewed - Medication list reviewed Patient is here today for follow up of his right knee scope medial meniscus root repair in fixation of insufficiency fracture of the right medial femoral condyle. He went to physical therapy close to where he lives but did not have a very good experience with the them it was told he could fully weightbear which he was not supposed to be doing. He has been having difficulty keeping in his brace fitted appropriately. He says he was doing some exercises there in his knee swelled up a lot so as he has been has not been back to PT. He is not having any significant pain with the knee Social History Description Last Updated Alcohol use 04/30/2022 Last Documented On 5 9:43AM ; [facility] Caffeine use 04/30/2022 Last Documented On 5 9:43AM ; [facility] Exercising regularly 04/30/2022 Last Documented On 5 9:43AM ; [facility] Yes, current smoker. 04/30/2022 Last Documented On 5 9:43AM ; [facility] No recent change in diet 04/30/2022 Last Documented On 5 9:43AM ; [facility] Not using drugs 04/30/2022 Last Documented On 5 9:43AM ; [facility] Tobacco use 04/30/2022 Last Documented On 5 9:43AM ; [facility] Smoker occasional cigar 03/11/2021 Last Documented On 5 9:43AM ; [facility] No recent change in diet 09/17/2020 Last Documented On 5 9:43AM ; [facility] Yes, current smoker. 09/17/2020 Last Documented On 5 9:43AM ; [facility] Smoking Status Unknown Procedures and Surgical History Includes: Procedures from this encounter Procedures Code Diagnosis Performing Provider Service L ocation Service Date intervention and counseling on cessation of tobacco use 4000F Last Documented On 5 9:43AM ; [facility] use of tobacco assessment performed 1000F Last Documented On 5 9:43AM ; [facility] patient screened for future fall risk: documentation of any fall with injury in past year 1100F Last Documented On 5 9:43AM ; [facility] EMG was performed 71982 Last Documented On 5 9:43AM ; [facility] brace Last Documented On 5 9:43AM ; [facility] Surgical History Last Updated Past Surgical History: thyro id removed / Kidney Stone Extraction / Rotator Cuff Repair 04/30/2022 Last Documented On 5 9:43AM ; [facility] Medical History Includes: Medical History addressed during this encounter Description Last Updated History of arthritis 04/30/2022 Last Documented On 5 9:43AM ; [facility] History of heart disease 04/30/2022 Last Documented On 5 9:43AM ; [facility] History of History of Cancer 04/30/2022 Last Documented On 5 9:43AM ; [facility] History of History of Gallbladder 2022 Last Documented On 5 9:43AM ; [facility] History of Liver Disease 04/30/2022 Last Documented On 5 9:43AM ; [facility] History of Thyroid Disease 04/30/2022 Last Documented On 5 9:43AM ; [facility] Arthritis 09/17/2020 Last Documented On 5 9:43AM ; [facility] History of Cancer thyroid 09/17/2020 Last Documented On 5 9:43AM ; [facility] History of Gallbladder RCT repair 2020 Last Documented On 5 9:43AM ; [facility] Liver Disease 09/17/2020 Last Documented On 5 9:43AM ; [facility] No recent immunization for flu Last Documented On 5 9:43AM ; [facility] No recent immunization for pneumococcal pneumonia 09/17/2020 Last Documented On 5 9:43AM ; [facility] Thyroid Disease 09/17/2020 Last Documented On 5 9:43AM ; [facility] Family History Includes: Family History addressed during this encounter Description Last Updated Paternal history of family history of he art disease 04/30/2022 Last Documented On 5 9:43AM ; [facility] Family history of heart disease 09/18/19 Last Documented On 5 9:43AM ; [facility] Family history of rheumatoid arthritis 0 09/17/2020 Last Documented On 5 9:43AM ; [facility] Review of Systems Includes: Review of [...] Active Last Documented On 04/26/2024 12:56PM ; [facility] Note: Swelling in Throat, unable to swal low-Major Encounters Encounter Provider Location Date Check-In Time Check- Out Time Diagnosis Post Op [facility]:40[facility] 10:42[facility] Insurance Includes: Active Insurance Policies Plan Name Member ID Group # Subscriber Relationship Effect esthela Dates 1 - Medicare Part B [facility] [id number] Jose G Germain Self 10/17/2018 - Unknown 2 - [facility] [employer] [id number] Jose G Germain Self 10/17/2018 - Unknown Clinical Notes Includes: Clinical Notes from this encounter * Progress note Date Encounter Last Documented by 02/26/2024 Post Op Last documented on 02/26/2024; 10:53 AM, Herman Germain PA-C; [facility] Active Problems & Conditions - History of [...] Problem list reviewed - Medication list reviewed Patient is here today for follow up of his right knee scope medial meniscus root repair in fixation of insufficiency fracture of the right medial femoral condyle. He went to physical therapy close to where he lives but did not have a very good experience with the them it was told he could fully weightbear which he was not supposed to be doing. He has been having difficulty keeping in his brace fitted appropriately. He says he was doing some exercises there in his knee swelled up a lot so as he has been has not been back to PT. He is not having any significant pain with the knee Current Medication - Adult Aspirin Regimen 81 [...] as directed 0 days, 0 refills - Fenofibrate 160 MG Oral Tablet take as directed 0 days, 0 refills - Levothyroxine Sodium 100 MCG Oral Capsule take as directed 0 days, 0 refills - Metoprolol Succinate ER 50 MG Oral Tablet Extended Release 24 Hour take as directed 0 days, 0 refills - Multi Vitamin Oral Tablet take as directed 0 days, 0 refills - Prasugrel HCl 10 MG Oral Tablet take as directed 0 days, 0 refills - Pregabalin 100 MG Oral Capsule take as directed 0 days, 0 refills - Vitamin C Oral [...] allergic reaction. Physical Findings - Vitals taken 02/26/2024 09:57 am Height 73 in Weight 235 lbs Body Mass Index 31 kg/m2 Body Surface Area 2.3 m2 Pain Level 2 There is no swelling with the knee the portal sites for the incision looks clean dry intact there is no sign of any infection Range motion was 2 to about 60-70 degrees No gastrocs tenderness Assessment Right knee scope medial meniscus root repair in fixation of insufficiency fracture of the medial femoral condyle 02/12/2024 Previous Tests Laboratory Studies: Neuro-Electrical Functions: EMG. Basic Management Procedures And Services: - Brace Therapy - Intervention and counseling on cessation of tobacco use. Counseling/Education - Lose weight Plan StartCited - Pain in right knee Therapy/Physical Therapy: Knee Instructions: See PT order attached EndCited Fall Risk Assessment: This patient has been [...] has been discussed with the patient. Patient was seen by myself Herman Germain PA-C. Patient will follow up [address] Betts he is behind with his range motion at this point in time still emphasize motion he can do quad sets straight leg raises continue to be toe-touch weight-bearing he is going to start physical therapy at our facility hopefully as soon as he can. Continue to ice his knee. Sutures taken out today. Notes This dictation was done with voice recognition software and may contain errors and omissions. Practice Management Use of tobacco assessment performed and patient screened for future fall risk documentation of any fall with injury in past year. Care Team - DESIREE LEE MD - [employer]OR [employer]W SUPERVISOR
--- OUTSIDE RECORDS SUMMARY | 2024-06-08 12:18 | XMS_ITS ---
Care Plan - [facility] Created on: June 08, 2024 Jose G Germain : 1955 Sex: Male Author Organization [facility] Address [address] [place] [address] Phone Care Team Providers Care Boner Meat Name Role Phone Alpesh DE LA O, Luciano Unavailable DESIREE LEE MD Primary Care Provider [phone]
--- OUTSIDE RECORDS SUMMARY | 2024-06-08 12:18 | XMS_ITS | Clinical Summary ---
Author Organization [facility] Address [address] [place] [address] Phone Care Team Providers Care Shank Cutter Name Role Phone Alpesh DE LA O, Luciano Unavailable [phone] DESIREE LEE MD Primary Care Provider [phone] Reason for Visit and Chief Complaint The Chief Complaint is: PO R Knee Scope Problems Includes: Problems addressed during this encounter and other active Problems Current Visit Onset Date Resolved Date Provider Conditio n Status Lower Back Pain 09/17/2020 Rush Day MD Act esthela Last Documented On 1 2:11PM ; [facility] Past Visits Onset Date Resolved Date Provider Condition Status Joint Pain in the Right Knee 02/04/2024 Luanne NOLAND Active Last Documented On 4 11:52AM ; [facility] History of Pain in the Hands 12/05/2020 Bradley Dale MD Active Last Documented On 1 8:44AM ; [facility] Joint Pain, Localized in the Shoulder 10/24/2020 José Miguel Small MD Active Last Documented On 1 8:32AM ; [facility], [facility] Plan of Treatment - Patient screened for future fall risk: documentation of any fall with injury in past year - Last Documented On 05/02/2024 12:09PM ; [facility], [facility] Fall Risk Assessment: This patient has been [...] with the patient. - Last Documented On 05/02/2024 12:09PM ; [facility] Future Appointments Date Time Location Provi taz Follow Up 06/14/2024 8:45AM [facility] CIRCLEJUAN Betts MD Last Documented On 5 1:22PM ; [facility] Instructions to patient Intervention and counseling on cessation of tobacco use Last Documented On 5 12:57PM ; [facility] Intervention and counseling on cessation of tobacco use Last Documented On 5 1:10PM ; [facility] Lose weight Last Documented On 12:57PM ; [facility] Assessments Includes: Assessments from this encounter Findings - Overweight - Last Documented On 05/02/2024 12:09PM ; [facility] Instructions Includes: Instructions from this encounter Instructions to patient Intervention and counseling on cessation of tobacco use Last Documented On 5 12:57PM ; [facility] Intervention and counseling on cessation of tobacco use Last Documented On 5 1:10PM ; [facility] Lose weight Last Documented On 5 12:57PM ; [facility] Medical Equipment - Implanted Devices Includes: Current Devices No Medical Equipment Recorded Medications Includes: Medications discussed during this encounter and other current Medications New / Renewed during this visit Luciano Betts MD on 04/26/2024 Meloxicam 15 MG Oral Tablet Provider: Luciano Betts MD 30 day supply: 30 tablet, 2 refills Diagnosis: 1 every bedtime Pharmacy: [facility] - [address] [place], [place] [phone] Last Documented On 5 1:36PM By Luciano Betts ; [facility] Current Medications (continue as prescribed) Atorvastatin Calcium 10 MG Oral Tablet 02/16/2024 Pr ovider: Lolita Belcher APRN Diagnosis: Last Documented On 5 8:50AM By Grady Brewster ; [facility] traMADol HCl 50 MG Oral Tablet 02/12/2024 Provider: Luciano Betts MD Diagnosis: Last Documented On 5 8:50AM By Grady Brewster ; [facility] oxyCODONE HCl 5 MG Oral Tablet 02/11/2024 Provider: Luciano Betts MD Diagnosis: Last Documented On 5 8:50AM By Grady Brewster ; [facility] Metoprolol Succinate ER 50 M G Oral Tablet Extended Release 24 Hour 02/08/2024 Provider: Lolita Cabral Diagnosis: Last Documented On 5 8:50AM By Grady Brewster ; [facility] Pregabalin 100 MG Oral Capsule 02/04/2024 Provider: Diagnosis: Last Documented On 4 12:08PM By Idania Rocha ; [facility] Vitamin C Oral Capsule 02/04/2024 Provider: Diagnosis: Last Documented On 4 12:08PM By Idania Rocha ; [facility] Adult Aspirin Regimen 81 MG Oral Tablet Delayed Releas e 02/04/2024 Provider: Diagnosis: Last Documented On 4 12:08PM By Idania Rocha ; [facility] Multi Vitamin Oral Tablet 02/04/2024 Provider: Diagnosis: Last Documented On 4 12:09PM By Idania Rocha ; [facility] Diclofenac Sodium 75 MG Oral Tablet Delayed Release Provider: Diagnosis: Last Documented On 4 12:07PM By Idania Rocha ; [facility] Fenofibrate 160 MG Oral Tablet 02/04/2024 Provider: Diagnosis: Last Documented On 4 12:07PM By Idania Rocha ; [facility] Prasugrel HCl 10 MG Oral Tablet 02/04/2024 Provider: Diagnosis: Last Documented On 4 12:07PM By Idania Rocha ; [facility] Metoprolol Succinate ER 50 M G Oral Tablet Extended Release 24 Hour 02/04/2024 Provider: Diagnosis: Last Documented On 4 12:06PM By Idania Rocha ; [facility] Allopurinol 300 MG Oral Tablet 02/04/2024 Provider: Diagnosis: Last Documented On 4 12:06PM By Idania Rocha ; [facility] Diclofenac Sodium 75 MG Oral Tablet Delayed Release Provider: Diagnosis: Last Documented On 5 8:50AM By Grady Brewster ; [facility] Baclofen 5 MG Oral Tablet 12/31/2023 Provider: Hossein Day APRN Diagnosis: Last Documented On 5 8:50AM By Grady Brewster ; [facility] Atorvastatin Calcium 10 MG Oral Tablet 04/30/2022 Pr ovider: Diagnosis: Last Documented On 3 8:52AM By Caroline Patton ; [facility] Levothyroxine Sodium 100 MCG Oral Capsule 04/30/2022 Provider: Diagnosis: Last Documented On 3 8:52AM By Caroline Patton ; [facility] Past Medications on file traMADol HCl 50 MG Oral Tablet 02/12/2024 - 02/22/2024 Provider: Luciano Betts MD Diagnosis: 1-2 po q 4-6h PRN for breakthrough post op pain Last Documented On 4 9:05AM By Luciano Betts ; [facility] Ondansetron HCl 4 MG Oral Tablet 02/11/2024 - 02/24/19 25 Provider: Luciano Betts MD Diagnosis: 1-2 p o q 6-8h as needed for nausea Last Documented On 4 11:27AM By Luciano Betts ; [facility] oxyCODONE HCl 5 MG Oral Tablet 02/11/2024 - 02/15/2024 Provider: Luciano Betts MD Diagnosis: 1 po q 4h 1 tablet by mouth every 4 hours for post op pain MAXIMUM 6 TABLETS PER DAY Last Documented On 4 11:27AM By Luciano Betts ; [facility] Aspirin Adult Low Strength 8 1 MG Oral Tablet Delayed Release 02/11/2024 - 03/27/2024 Provider: Luciano Betts MD Diagnosis: twice a day Last Documented On 4 11:27AM By Luciano Betts ; [facility] Allopurinol 300 MG Oral Tablet 04/30/2022 - 05/30/2022 Provider: DESIREE LEE MD Diagnosis: Last Documented On 3 8:52AM By Caroline Patton ; [facility] Ibuprofen 400 MG Oral Tablet 02/14/2021 - 02/17/2021 Max strickland: Bradley Dale MD Diagnosis: Take 1 tablet every 8 hrs prn pain Last Documented On 1 10:12AM By Shalini Guzman ; [facility] Zofran 4 MG Oral Tablet 01/15/2021 - 01/25/2021 Provid er: José Miguel Small MD Diagnosis: Take 1 tablet every 8 hrs pr n pain Take 1 tablet every 8 hrs prn post op nausea Last Documented On 1 7:18AM By José Miguel Small ; [facility] oxyCODONE HCl 5 MG Oral Tablet 01/15/2021 - 01/20/2021 Provider: José Miguel dunn MD Diagnosis: 1-2 po q 4-6h prn post op pain Last Documented On 1 7:20AM By José Miguel Small ; [facility] Medications Administered Includes: Administered Medications from this encounter No Administered Medications Recorded Vital Signs Includes: Vital Signs from this encounter Vital Name 04/26/2024 01:09P Height (in) 71 Weight (lb) 236 Body Mass Index 32.9 Body Surface Area 2.3 Pain Level 0 Note: clw Last Documented: On 04/26/2024 1:09PM ; [facility] Results Includes: Results discussed during this encounter No Results Recorded For Specified Dates History of Present Illness Includes: History of Present Illness from this encounter ADILENE Germain is a 68 year old male. - Allergy list reviewed - Problem list reviewed - Medication list reviewed - - Review of medications documented Follow up right knee medial meniscus root repair doing well now 1 month out Social History Description Last Updated Alcohol use 04/30/2022 Last Documented On 5 12:56PM ; [facility] Caffeine use 04/30/2022 Last Documented On 5 12:56PM ; [facility] Exercising regularly 04/30/2022 Last Documented On 5 12:56PM ; [facility] Yes, current smoker. 04/30/2022 Last Documented On 5 12:56PM ; [facility] No recent change in diet 04/30/2022 Last Documented On 5 12:56PM ; [facility] Not using drugs 04/30/2022 Last Documented On 5 12:56PM ; [facility] Tobacco use 04/30/2022 Last Documented On 5 12:56PM ; [facility] Smoker occasional cigar 03/11/2021 Last Documented On 5 12:56PM ; [facility] No recent change in diet 09/17/2020 Last Documented On 5 12:56PM ; [facility] Yes, current smoker. 09/17/2020 Last Documented On 5 12:56PM ; [facility] Smoking Status Unknown Procedures and Surgical History Includes: Procedures from this encounter Procedures Code Diagnosis Performing Provider Service L ocation Service Date intervention and counseling on cessation of tobacco use 4000F Last Documented On 5 12:57PM ; [facility] use of tobacco assessment performed 1000F Last Documented On 5 12:57PM ; [facility] patient screened for future fall risk: documentation of any fall with injury in past year 1100F Last Documented On 5 12:57PM ; [facility] EMG was performed [id number] Last Documented On 5 12:57PM ; [facility] brace Last Documented On 5 12:57PM ; [facility] Surgical History Last Updated Past Surgical History: thyro id removed / Kidney Stone Extraction / Rotator Cuff Repair 04/30/2022 Last Documented On 5 12:56PM ; [facility] Medical History Includes: Medical History addressed during this encounter Description Last Updated History of arthritis 04/30/2022 Last Documented On 5 12:56PM ; [facility] History of heart disease 04/30/2022 Last Documented On 5 12:56PM ; [facility] History of History of Cancer 04/30/2022 Last Documented On 5 12:56PM ; [facility] History of Liver Disease 04/30/2022 Last Documented On 5 12:56PM ; [facility] History of Thyroid Disease 04/30/2022 Last Documented On 5 12:56PM ; [facility] Arthritis 09/17/2020 Last Documented On 5 12:56PM ; [facility] History of Cancer thyroid 09/17/2020 Last Documented On 5 12:56PM ; [facility] Liver Disease 09/17/2020 Last Documented On 5 12:56PM ; [facility] No recent immunization for flu Last Documented On 5 12:56PM ; [facility] No recent immunization for pneumococcal pneumonia 09/17/2020 Last Documented On 5 12:56PM ; [facility], [facility] Thyroid Disease 09/17/2020 Last Documented On 5 12:56PM ; [facility] Family History Includes: Family History addressed during this encounter Description Last Updated Paternal history of family history of he art disease 04/30/2022 Last Documented On 5 12:56PM ; [facility] Family history of heart disease 09/18/19 21 Last Documented On 5 12:56PM ; [facility] Family history of rheumatoid arthritis 0 09/17/2020 Last Documented On 5 12:56PM ; [facility] Review of Systems Includes: Review [...] Active Last Documented On 04/26/2024 12:56PM ; [facility] Note: Swelling in Throat, unable to swal low-Major Encounters Encounter Provider Location Date Check-In Time Check-Out Time Diagnosis Post Op Luciano Betts MD [facility] 5 12:55PM 1:20PM Overweight Insurance Includes: Active Insurance Policies Plan Name Member ID Group # Subscriber Relationship Effect esthela Dates 1 - Medicare Part B [facility] [id number] Jose G Germain Self 10/17/2018 - Unknown 2 - [facility] [employer] [id number] Jose G Germain Self 10/17/2018 - Unknown Clinical Notes Includes: Clinical Notes from this encounter * Progress note Date Encounter Last Documented by 04/26/2024 Post Op Last documented on 05/02/2024; 12:09 PM, Luciano Betts MD; [facility] Active Problems & Conditions - History of Pain in the Hands - Joint Pain in the Right Knee - Joint Pain, Localized in the Shoulder - Lower Back Pain Chief Complaint The Chief Complaint is: PO R Knee Scope. Referred Here Referred by self. History of Present Illness Jose G Germain is a 68 year old male. - Allergy list reviewed - Problem list reviewed - Medication list reviewed - - Review of medications documented Follow up right knee medial meniscus root [...] Kidney Stone Extraction / Rotator Cuff Repair Social History Yes, current smoker. Yes, current [...] allergic reaction. Physical Findings - Vitals taken 04/26/2024 01:09 pm clw Height 71 in 60 - 80 Weight 236 lbs 121 - 205 Body Mass Index 32.9 kg/m2 Body Surface Area 2.3 m2 Pain Level 0 Pain Level Note 7 at worst Right knee 10 degree flexion contracture to 120 flexion good stability no swelling seen normal gait no mechanical click Assessment - Overweight Previous Tests Laboratory Studies: Neuro-Electrical Functions: EMG. Basic Management Procedures And Services: - Brace Therapy - Intervention and counseling on cessation of tobacco use. Counseling/Education - Tobacco use - Use of tobacco assessment performed - Intervention and counseling on cessation of tobacco use - Lose weight Plan StartCited - Other Meloxicam 15 MG tablet 1 every bedtime, 30 days, 2 refills EndCited - Patient screened for future fall risk: documentation of any fall with injury in past year Fall Risk Assessment: This patient has been [...] therapy has been discussed with the patient. Notes This dictation was done with voice recognition software and may contain errors and omissions. Practice Management Use of tobacco assessment performed and patient screened for future fall risk documentation of any fall with injury in past year. Care Team - DESIREE LEE MD - RO[facility]
--- OUTSIDE RECORDS SUMMARY | 2024-06-08 12:18 | XMS_ITS | Continuity of Care Document ---
Author Organization [facility], DERMATOLOGY SB Address [address] [place] [id number] Care Team Providers Care Paid Internship Name Role Phone DESIREE LEE Primary Care Provider Assessment No assessment recorded. Plan of Treatment Reminders Order Date Submit Date Provider Last Modified By Organization Details Last Modified Time Details Appointments None recorded. Lab surgical pathology study 2024 025 [facility], [address] [place] [address], [phone], 17:44:22 Referral None recorded. Procedures None recorded. Surgeries None recorded. Imaging None recorded. Medication Orders None recorded. Patient TargetsNo targets recorded. Patient Instructions Encounter Date Encounter Id Patient Instructions Last Modified By Organization Details Last Modified Time 04/11/2024 [id number] - Benign moles and keratoses seen on exam today. - SPF 30 or higher broad-spectrum sunscreen recommended with re-application every 2 hours - Discussed sun protection measures, including wide-brimmed hat, sun-protective clothing, and avoidance of sun during peak hours of 10am-4pm - Avoid tanning beds as these can increase the chances of all 3 types of skin cancer - Instructed to monitor for changes and to call us for appointment with any changing or worrisome lesions [email or web address] Not available 04/11/2024 14:52:24 Reason for Referral None Reported. Problems No Known Problems Procedures Surgical History Date Name Laterality Status Provider Name and Address Organization Details Recorded Time 04/11/19 25 Biopsy Skin Lesion; Tangential completed Holland Candelaria [facility] 04/11/2024 14:41:10 04/11/19 25 Injection, Intralesional completed DUGLAS BASURTO MD [address] [place], [phone], [facility] 04/11/2024 18:30:27 04/11/19 25 Destruction Premalignant Lesion(s) completed Holland Candelaria [facility] 04/11/2024 14:44:27 01/29/20 23 Lumbar Epidural Steroid Injection - Parth completed PERI CANTOR MD [address] [place] [address], [phone], [facility] 01/28/2023 14:14:59 09/10/19 23 Cervical MBB 2 level - Parth completed PERI CANTOR MD [address] [place] [address], [phone], [facility] 09/09/2022 16:11:18 08/16/19 23 Cervical MBB 2 level - Parth completed PERI CANTOR MD [address] [place] [address], [phone], [facility] 08/15/2022 15:23:46 05/04/19 23 Back Surgery completed Alana Streeter [facility] 07/16/2022 08:57:41 04/30/19 18 Shave Lesion; trunk, arm, leg completed MARIA DEL ROSARIO ODOM MD [address] [place] [address], [phone], [facility] 04/30/2017 22:32:02 04/30/19 18 Destruction BN Lesions completed Aylin Toussaint [facility] 04/29/2017 08:43:13 Orthopedic Surgery completed Balta Pérez [facility] 11/03/2016 13:55:36 Imaging Results None recorded. Procedure Notes None recorded. Medical Equipment None Reported. Allergies Allergen ID Allergen Name Allergen Category Reaction Reaction Severity Criticality Documentation Date Start Date Code Code System Note Provider Name and Address Organization Details Recorded Time 185176 lisinopri l medicatio n facial swelling Not available Not available 07/16/2022 99177 RxNorm Alana Streeter [facility], [facility] 08:45:16 Medications Name Sig Start Date Stop Date Status Note LastModified by Organization Details LastModified Time Multiple Vitamin capsule Daily 11/03 completed Duration : 30 days;Kevin quency: daily;Me dication Descript ion: multivit sauceda; Dosage:1 ; Route:or al; refills: 3; Quantity :100 capsule Not Available Not Available Not Available atorvasta tin 10 mg tablet Take 1 tablet every day by oral route. active Not Available Not Available No t Available metoprolo l succinate ER 50 mg tablet,ex tended release 24 hr 50 mg twice a day by oral route. active Not Available Not Available No t Available hydrocodo ne 5 mg-acetam inophen 325 mg tablet Take 1 tablet every 6 hours by oral route as needed. 2023 active Not Available Not Available Not Avai lable lisinopri l 20 mg tablet 10 mg every 24 hours by oral route. 06/07 completed Not Available Not Available Not Available Medrol (Mark) 4 mg tablets in a dose pack as directed 2023 active Not Available Not Available Not Avai lable prednison e 20 mg tablet Take 1 tablet every day by oral route as needed. 2023 active Not Available Not Available Not Avai lable allopurin ol 100 mg tablet Take 1 tablet every day by oral route. active Not Available Not Available No t Available aspirin 81 mg tablet,de layed release 81 mg by oral route. active Not Available Not Available No t Available levothyro xine 75 mcg tablet Take 1 tablet every day by oral route. active Not Available Not Available No t Available hydrocodo ne 7.5 mg-acetam inophen 325 mg tablet 1 {tbl} by oral route. 06/19 completed Not Available Not Available Not Available lisinopri l 10 mg tablet Take 1 tablet every day by oral route. 06/09 completed Not Available Not Available Not Available metoprolo l tartrate 50 mg tablet Take 1 tablet twice a day by oral route. active Not Available Not Available No t Available docusate sodium 100 mg capsule 100 mg twice a day by oral route. 06/19 completed Not Available Not Available Not Available gabapenti n 300 mg capsule Take 1 capsule 3 times a day by oral route. 2023 active Not Available Not Available Not Avai lable diclofena c sodium 75 mg tablet,de layed release Take 1 tablet twice a day by oral route as needed. 2024 active Not Available Not Available Not Avai lable allopurin ol 300 mg tablet 300 mg by oral route. active Not Available Not Available No t Available diclofena c sodium 50 mg tablet,de layed release Take 1 tablet twice a day by oral route for 30 days. 12/07 completed Not Available Not Available Not Available oxycodone -acetamin ophen 7.5 mg-325 mg tablet 1 {tbl} by oral route. 06/07 completed Not Available Not Available Not Available [facility] Metoprolo l Tartrate 100 mg tablet Take 1 tablet twice a day by oral route. active Not Available Not Available No t Available hydromorp citlali 4 mg tablet Take 1 tablet every 4 hours by oral route as needed. 2023 active Not Available Not Available Not Avai lable nitrofura ntoin monohydra te/macroc rystals 100 mg capsule 100 mg twice a day by oral route. 06/07 completed Not Available Not Available Not Available aspirin active Not Available Not Avail able Not Available Fish Oil 11/03 completed Medicati on Descript ion: omega-3 polyunsa turated fatty acids; Route:or al; refills: 0 Not Available Not Available Not Available Synthroid 01/28 completed Not Available Not Available Not Available Vitals None Recorded Social History Question Answer Notes LastModified by Organizat ion Details LastModified Time Tobacco Smoking Status Current [facility]/2016 13:55:22 What Is Your Level Of Alcohol Consumption? Occasional [email or web address] Information not available 07/30/2020 How Much Tobacco Do You Chew? None [email or web address] Information not available 07/30/2020 Are You Currently Employed? No [email or web address] Information not available 07/16/2022 Do You Or Have You Ever Used E-cigarettes Or Vape? Never Used Electronic Cigarettes [email or web address] Information not available 07/30/2020 Marital Status [email or web address] Informatio n not available 07/30/2020 What Was The Date Of Your Most Recent Tobacco Screening? 12/07/2017 8 Information not available 04/05/2019 How Much Tobacco Do You Smoke? No [email or web address] Information not available 07/16/2022 Do You Or Have You Ever Used Any Other Forms Of Tobacco Or Nicotine? No [email or web address] Information not available 07/16/2022 Sex: Male Functional Status Question Answer Note LastModified by Organization D etails LastModified Time What is your exercise level? Heavy Information not available 07/16/2022 Mental Status None recorded. Family History Relationship Description Onset Age of this Age Resolved Age Notes LastModified by Organization Details LastModified Time Father Heart disease [email or web address] Not available 07/16 08:46:24 Brother Heart disease [email or web address] Not available 07/16 08:46:24 Paternal Grandfather Heart disease [email or web address] Not available 07/16 08:46:35 Medical History Condition Response Gout N Anxiety/Depression N Other N Thyroid Disease N Kidney Stones Y Hernia N Glaucoma N COPD N Pneumonia N Anesthesia Complications N Varicose Veins N Autoimmune disease N Arthritis Y Blood Clot N Cancer N Stroke N Melanoma Y Blood Thinners N Alcohol Overuse/Alcohol Abuse N High Cholesterol N Skin Cancer Y Liver Disease N Kidney Disease N Allergies/Hayfever N Squamous Cell Carcinoma N Heart Conditions N Migraines N Acne N Skin Problems N Immune System Disorder N Heart Attack (CA) Y Other Skin Condition N Mental Illness N Neurological Problems N Diabetes N Rheumatic Fever N Bleeding Disorder N Seizures/Epilepsy N Tuberculosis N Genetic Disorder N AIDS/HIV N Eczema N Asthma N Basal Cell Carcinoma N Sleep Apnea N Thyroid Disorder Y Included as Review of Systems N Hypertension Y Osteoporosis N Past Encounters Encounter ID Performer Location Encounter Start Date Encounter Closed Date Diagnosis/Indication Diagnosis SNOMED-CT Code Diagnosis ICD10 Code Diagnosis Note [id number] DUGLAS BASURTO MD [facility] [address] [place] [address] 04/11/2024 13:49:58 04/11/2024 16:09:51 Solar lentigo 84400054 L81.4 Benign Reassuranc eRecommend ed sun protective clothing and a mineral based sunscreen 30 SPF or higher lotion OTC daily Raised ebenezer orrheic keratosis 1688230131 40101 L82.1 Benign Reassuranc e Hemangioma 716222412 D18 .00 Benign Reassuranc e Multiple b enign melanocytic nevi 940825381 D22.9 Benign Reassuranc e History of squamous cell carcinoma of skin 818121436 Z85.828 [place] [facility] scar History of Malignant melanoma 539485285 Z85.89 [place] d scar Actinic keratosis 007 L57.0 Education then treated with LN; pt tolerated well advised pt what to expect with freezing Cyst of skin 852509317 L 72.9 Injected with kenalog 2mg/cc, total of 0.1cc injectedND C#: [id number] #:[id number] xp: 05/2025 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 61180546 D48.5 A.) Right proximal thigh r/o lentigo vs lentigo malignaB.) Right distal thigh r/o lentigo vs lentigo malignasha ve biopsy performeds ent for pathsee procedure notewound care instructio ns providedpa tient consents for procedure and photo monitoring Health Concerns Section Related Observation LastModified by Organization Detai ls LastModified Time None Recorded Concern Status LastModified by Organization Details LastModified Time None Recorded Payers Encounter Date Sequence Insurance Name Policy Number Policy Huang Covered Member ID Huang Member ID Guarantor Name 04/11/2024 1 [employer]ICARE[employer] (MEDICARE) Jose G Germain [id number] Jose G Germain 04/11/2024 2 [facility] (MEDICARE SUPPLEMENT) Jose G Germain [id number] Jose G Germain Notes Date Note Type Note Provider Name and Address Organization Details Recorded Time 04/11/2024 text/html New patient- {{Self referred* Referr ed by: LUCAS in}} LUC[facility] with Dr. Maharaj 68 y/o presents to clinic today for full body check. Skin lesion on left wrist and PERICO lower legs. 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 Feels well today. {{Denies Positiv e*}} family history of malignant melanoma. DUGLAS BASURTO MD [facility] [place], [address], [facility] 04/11/2024 18:33:13
--- OUTSIDE RECORDS SUMMARY | 2024-06-08 12:18 | XMS_ITS ---
Author Organization [facility], [facility] Address [address] [place] [address] Phone Care Team Providers Care Manager Card Name Role Phone Alpesh DE LA O, Luciano Unavailable [phone] ROSA DE LA O, DESIREE Primary Care Provider [phone] Reason for Referral Date Encounter Description Provider Reason for Referral 04/17/21 Follow Up Bradley Dale MD Referra l To Physician 03/11/21 Post Op Bradley Dale MD Referra l To Physician - for elevated blood pressure 02/27/21 Post Op José Miguel Small MD Refe rral To Physician - see PCP for BP 01/29/21 Post Op Jennifer Carr PA-C Referra l To Physician - see PCP for BP 12/26/20 Follow Up José Miguel Small MD Refe rral To Physician - see PCP for BP 12/21/20 Follow Up Bradley Dale MD Referra l To Physician - for elevated blood pressure 12/05/20 Physician Specified Bradley Dale MD Referral To Physician - for elevated blood pressure Problems Includes: Active, inactive, and resolved Problems All Visits Onset Date Resolved Date Provider Condition S tatus Joint Pain in the Right Knee 02/04/2024 Luanne NOLAND Active Last Documented On 4 11:52AM ; [facility] History of Pain in the Hands 12/05/2020 Bradley Dale MD Active Last Documented On 1 8:44AM ; [facility] Joint Pain, Localized in the Shoulder 10/24/2020 José Miguel Small MD Active Last Documented On 1 8:32AM ; [facility] Lower Back Pain 09/17/2020 Rush Day MD Act esthela Last Documented On 1 2:11PM ; [facility] Plan of Treatment Findings Encounter Date Patient screened for future fall risk: documentation of any fall with injury in past year Post Op with Luciano Betts MD 04/26/2024 Last Documented On 5 12:09PM ; [facility] Pending Tests Order Diagnosis Results Due Ordering P rovider Procedure/Tests EMG 11/07/20 José Miguel Small MD Last Documented On 1 2:12PM ; [facility] Procedure/Tests Nerve Conduction Study 11/07/20 José Miguel Small MD Last Documented On 1 2:12PM ; [facility] Procedure/Tests EMG 12/19/20 Bradley Dale MD Last Documented On 1 9:24AM ; [facility] Future Appointments Date Time Location Provi taz Follow Up 06/14/2024 8:45AM [facility] [place] [facility] [place] Last Documented On 5 1:22PM ; [facility] Instructions to patient Intervention and counseling on cessation of tobacco use Last Documented On 5 12:57PM ; [facility] Intervention and counseling on cessation of tobacco use Last Documented On 5 1:10PM ; [facility] Lose weight Last Documented On 5 12:57PM ; [facility] Intervention and counseling on cessation of tobacco use Last Documented On 5 8:51AM ; [facility] Lose weight Last Documented On 5 8:51AM ; [facility] Intervention and counseling on cessation of tobacco use Last Documented On 5 9:43AM ; [facility] Lose weight Last Documented On 5 9:43AM ; [facility] Intervention and counseling on cessation of tobacco use Last Documented On 4 1:29PM ; [facility] Lose weight Last Documented On 4 1:29PM ; [facility] Intervention and counseling on cessation of tobacco use Last Documented On 3 8:23AM ; [facility] Lose weight Last Documented On 3 8:23AM ; [facility] Intervention and counseling on cessation of tobacco use Last Documented On 2 10:14AM ; [facility] Lose weight Last Documented On 2 10:14AM ; [facility] Intervention and counseling on cessation of tobacco use Last Documented On 2 1:57PM ; [facility] Lose weight Last Documented On 2 1:57PM ; [facility] Intervention and counseling on cessation of tobacco use Last Documented On 2 10:19AM ; [facility] Lose weight Last Documented On 2 10:19AM ; [facility] Intervention and counseling on cessation of tobacco use Last Documented On 2 1:59PM ; [facility] Lose weight Last Documented On 2 1:59PM ; [facility] Intervention and counseling on cessation of tobacco use Last Documented On 1 8:28AM ; [facility] Lose weight Last Documented On 1 8:28AM ; [facility] Intervention and counseling on cessation of tobacco use Last Documented On 1 8:06AM ; [facility] Lose weight Last Documented On 1 8:06AM ; [facility] Intervention and counseling on cessation of tobacco use Last Documented On 1 9:16AM ; [facility] Lose weight Last Documented On 1 9:16AM ; [facility] Intervention and counseling on cessation of tobacco use Last Documented On 1 8:44AM ; [facility] Lose weight Last Documented On 1 8:44AM ; [facility] Intervention and counseling on cessation of tobacco use Last Documented On 1 9:53AM ; [facility] Lose weight Last Documented On 1 9:53AM ; [facility] Intervention and counseling on cessation of tobacco use Last Documented On 1 8:32AM ; [facility] Lose weight Last Documented On 1 8:32AM ; [facility] Intervention and counseling on cessation of tobacco use Last Documented On 1 2:41PM ; [facility] Lose weight Last Documented On 1 2:41PM ; [facility] Assessments Includes: Assessments for all patient encounters Findings Encounter Date Overweight Post Op with Luciano Betts MD 5 Last Documented On 5 12:09PM ; [facility] Instructions Includes: Instructions for all patient encounters Instructions to patient Intervention and counseling on cessation of tobacco use Last Documented On 5 12:57PM ; [facility] Intervention and counseling on cessation of tobacco use Last Documented On 5 1:10PM ; [facility] Lose weight Last Documented On 5 12:57PM ; [facility] Intervention and counseling on cessation of tobacco use Last Documented On 5 8:51AM ; [facility] Lose weight Last Documented On 5 8:51AM ; [facility] Intervention and counseling on cessation of tobacco use Last Documented On 5 9:43AM ; [facility] Lose weight Last Documented On 5 9:43AM ; [facility] Intervention and counseling on cessation of tobacco use Last Documented On 4 1:29PM ; [facility] Lose weight Last Documented On 4 1:29PM ; [facility] Intervention and counseling on cessation of tobacco use Last Documented On 3 8:23AM ; [facility] Lose weight Last Documented On 3 8:23AM ; [facility] Intervention and counseling on cessation of tobacco use Last Documented On 2 10:14AM ; [facility] Lose weight Last Documented On 2 10:14AM ; [facility] Intervention and counseling on cessation of tobacco use Last Documented On 2 1:57PM ; [facility] Lose weight Last Documented On 2 1:57PM ; [facility] Intervention and counseling on cessation of tobacco use Last Documented On 2 10:19AM ; [facility] Lose weight Last Documented On 2 10:19AM ; [facility] Intervention and counseling on cessation of tobacco use Last Documented On 2 1:59PM ; [facility] Lose weight Last Documented On 2 1:59PM ; [facility] Intervention and counseling on cessation of tobacco use Last Documented On 1 8:28AM ; [facility] Lose weight Last Documented On 1 8:28AM ; [facility] Intervention and counseling on cessation of tobacco use Last Documented On 1 8:06AM ; [facility] Lose weight Last Documented On 1 8:06AM ; [facility] Intervention and counseling on cessation of tobacco use Last Documented On 1 9:16AM ; [facility] Lose weight Last Documented On 1 9:16AM ; [facility] Intervention and counseling on cessation of tobacco use Last Documented On 1 8:44AM ; [facility] Lose weight Last Documented On 1 8:44AM ; [facility] Intervention and counseling on cessation of tobacco use Last Documented On 1 9:53AM ; [facility] Lose weight Last Documented On 1 9:53AM ; [facility] Intervention and counseling on cessation of tobacco use Last Documented On 1 8:32AM ; [facility] Lose weight Last Documented On 1 8:32AM ; [facility] Intervention and counseling on cessation of tobacco use Last Documented On 1 2:41PM ; [facility] Lose weight Last Documented On 1 2:41PM ; [facility] Medical Equipment - Implanted Devices Includes: Current and historical Devices No Medical Equipment Recorded Medications Includes: Current and historical Medications Current Medications (continue as prescribed) Meloxicam 15 MG Oral Tablet 04/26/2024 - 07/25/2024 Pr ovider: Luciano Betts MD Diagnosis: 1 every bedtime Last Documented On 5 1:36PM By Luciano Betts ; [facility] Atorvastatin Calcium 10 MG Oral Tablet 02/16/2024 Pr ovider: Lolita Belcher APRN Diagnosis: Last Documented On 5 8:50AM By Grady Brewster ; [facility] traMADol HCl 50 MG Oral Tablet 02/12/2024 Provider: Luciano Betts MD Diagnosis: Last Documented On 5 8:50AM By Grady Brewster ; [facility], [facility] oxyCODONE HCl 5 MG Oral Tablet 02/11/2024 Provider: Luciano Betts MD Diagnosis: Last Documented On 5 8:50AM By Grady Brewster ; [facility], [facility] Metoprolol Succinate ER 50 M G Oral Tablet Extended Release 24 Hour 02/08/2024 Provider: Lolita Cabral Diagnosis: Last Documented On 5 8:50AM By Grady Brewster ; [facility], [facility] Pregabalin 100 MG Oral Capsule 02/04/2024 Provider: Diagnosis: Last Documented On 4 12:08PM By Idania Rocha ; [facility], [facility] Vitamin C Oral Capsule 02/04/2024 Provider: Diagnosis: Last Documented On 4 12:08PM By Idania Rocha ; [facility], [facility] Adult Aspirin Regimen 81 MG Oral Tablet Delayed Releas e 02/04/2024 Provider: Diagnosis: Last Documented On 4 12:08PM By Idania Rocha ; [facility], [facility] Multi Vitamin Oral Tablet 02/04/2024 Provider: Diagnosis: Last Documented On 4 12:09PM By Idania Rocha ; [facility], [facility] Diclofenac Sodium 75 MG Oral Tablet Delayed Release Provider: Diagnosis: Last Documented On 4 12:07PM By Idania Rocha ; [facility], [facility] Fenofibrate 160 MG Oral Tablet 02/04/2024 Provider: Diagnosis: Last Documented On 4 12:07PM By Idania Rocha ; [facility], [facility] Prasugrel HCl 10 MG Oral Tablet 02/04/2024 Provider: Diagnosis: Last Documented On 4 12:07PM By Idania Rocha ; [facility], [facility] Metoprolol Succinate ER 50 M G Oral Tablet Extended Release 24 Hour 02/04/2024 Provider: Diagnosis: Last Documented On 4 12:06PM By Idania Rocha ; [facility], [facility] Allopurinol 300 MG Oral Tablet 02/04/2024 Provider: Diagnosis: Last Documented On 4 12:06PM By Idania Rocha ; [facility], [facility] Diclofenac Sodium 75 MG Oral Tablet Delayed Release Provider: Diagnosis: Last Documented On 5 8:50AM By Grady Brewster ; [facility], [facility] Baclofen 5 MG Oral Tablet 12/31/2023 Provider: Hossein Day APRN Diagnosis: Last Documented On 5 8:50AM By Grady Brewster ; [facility], [facility] Atorvastatin Calcium 10 MG Oral Tablet 04/30/2022 Pr ovider: Diagnosis: Last Documented On 3 8:52AM By Caroline Patton ; [facility], [facility] Levothyroxine Sodium 100 MCG Oral Capsule 04/30/2022 Provider: Diagnosis: Last Documented On 3 8:52AM By Caroline Patton ; [facility], [facility] Past Medications on file traMADol HCl 50 MG Oral Tablet 02/12/2024 - 02/22/2024 Provider: Luciano Betts MD Diagnosis: 1-2 po q 4-6h PRN for breakthrough post op pain Last Documented On 4 9:05AM By Luciano Betts ; [facility], [facility] Ondansetron HCl 4 MG Oral Tablet 02/11/2024 - 02/24/19 Provider: Luciano Betts MD Diagnosis: 1-2 p o q 6-8h as needed for nausea Last Documented On 4 11:27AM By Luciano Betts ; [facility], [facility] oxyCODONE HCl 5 MG Oral Tablet 02/11/2024 - 02/15/2024 Provider: Luciano Betts MD Diagnosis: 1 po q 4h 1 tablet by mouth every 4 hours for post op pain MAXIMUM 6 TABLETS PER DAY Last Documented On 4 11:27AM By Luciano Betts ; [facility] Aspirin Adult Low Strength 8 1 MG Oral Tablet Delayed Release 02/11/2024 - 03/27/2024 Provider: Luciano Betts MD Diagnosis: twice a day Last Documented On 4 11:27AM By Luciano Betts ; [facility], [facility] Tamsulosin HCl 0.4 MG Oral Capsule 04/30/2022 - 2023 Provider: Diagnosis: Last Documented On 4 11:54AM By Iadnia Rocha ; [facility], [facility] Allopurinol 300 MG Oral Tablet 04/30/2022 - 05/30/2022 Provider: DESIREE LEE MD Diagnosis: Last Documented On 3 8:52AM By Caroline Patton ; [facility], [facility] Lisinopril 20 MG Oral Tablet 04/30/2022 - 02/04/2024 P nikider: Diagnosis: Last Documented On 4 11:53AM By Idania Rocha ; [facility], [facility] Ibuprofen 400 MG Oral Tablet 02/14/2021 - 02/17/2021 Max princeder: Bradley Dale MD Diagnosis: Take 1 tablet every 8 hrs prn pain Last Documented On 1 10:12AM By Shalini Guzman ; [facility], [facility] Zofran 4 MG Oral Tablet 01/15/2021 - 01/25/2021 Provid er: José Miguel Small MD Diagnosis: Take 1 tablet every 8 hrs pr n pain Take 1 tablet every 8 hrs prn post op nausea Last Documented On 1 7:18AM By José Miguel Small ; [facility], [facility] oxyCODONE HCl 5 MG Oral Tablet 01/15/2021 - 01/20/2021 Provider: José Miguel dunn MD Diagnosis: 1-2 po q 4-6h prn post op pain Last Documented On 1 7:20AM By José Miguel Small ; [facility], [facility] Naprosyn 500 MG Oral Tablet 12/21/2020 - 03/11/2021 Provider: Obi Cortes PA-C Diagnosis: twice a day Last Documented On 2 10:17AM By Yara Wynn ; [facility] Aspirin 81 MG Oral Capsule 10/24/2020 - 04/30/2022 Pro vider: Diagnosis: Last Documented On 3 8:51AM By Caroline Patton ; [facility] Methocarbamol 750 MG Oral Tablet 09/18/2020 - 03/11/19 22 Provider: Rush Day MD Diagnosis: Take 1 tablet every 8 hrs prn pain Last Documented On 2 10:17AM By Yara Wynn ; [facility] Naprosyn 500 MG Oral Tablet 09/18/2020 - 03/11/2021 Pr ovider: Rush Day MD Diagnosis: twice a day Last Documented On 2 10:17AM By Yara Wynn ; [facility] EC-Naprosyn 500 MG Oral Tabl et Delayed Release 09/17/2020 - 03/11/2021 Provider: Rush Day MD Diagnosis: twice a day Last Documented On 2 10:17AM By Yara Wynn ; [facility] Methocarbamol 750 MG Oral Tablet 09/17/2020 - 03/11/19 Provider: Rush Day MD Diagnosis: Take 1 tablet every 8 hrs prn pain Last Documented On 2 10:17AM By Yara Wynn ; [facility] Lisinopril 20 MG Oral Tablet 09/17/2020 - 04/30/2022 P rovider: Diagnosis: Last Documented On 3 8:51AM By Caroline Patton ; [facility] Synthroid 75 MCG Oral Tablet 09/17/2020 - 10/24/2020 P rovider: Diagnosis: Last Documented On 1 11:12AM By Nancy Lyles ; [facility] Flomax 0.4 MG Oral Capsule 09/17/2020 - 10/24/2020 Pro vider: Diagnosis: Last Documented On 1 11:12AM By Nancy Lyles ; [facility] Atorvastatin Calcium 10 MG O ral Tablet 08/28/2020 - 10/24/2020 Provider: DESIREE LEE MD Diagnosis: Last Documented On 1 11:12AM By Nancy Lyles ; [facility], [facility] methylPREDNISolone 4 MG Oral Tablet Therapy Pack 08/15/2020 - 10/24/2020 Provider: DESIREE LEE MD Diagnosis: Last Documented On 1 11:12AM By Nancy Lyles ; [facility], [facility] Allopurinol 300 MG Oral Tablet 03/28/2020 - 04/30/2022 Provider: DESIREE LEE MD Diagnosis: Last Documented On 3 8:52AM By Caroline Patton ; [facility], [facility] Lortab 7.5-500 MG OR TABS 09/27/2009 - 03/11/2021 Prov ider: Luciano Betts MD Diagnosis: mkp Last Documented On 2 10:17AM By Yara Wynn ; [facility], [facility] Medications Administered Includes: Administered Medications in patient's chart No Administered Medications Recorded Vital Signs Includes: Vital Signs from 06/09/2023 through 06/08/2024 Vital Name 04/26/2024 01:09P 03/15/2024 09:02A 02/26/2024 09:57A 02/04/2024 12:09P Height (in) 71 73 73 Weight (lb) 236 235 235 241 Body Mass Index 32.9 31 31 Body Surface Area 2.3 2.3 2.3 Pain Level 0 1 2 Blood Pressure Sitting (mmHg) 144/80 Pulse Rate-Sitting (bpm) 66 Oxygen Saturation (%) 96 Note: clw Last Documented: On 04/26/2024 1:09PM ; [facility] On 03/15/2024 9:02AM ; [facility] On 02/26/2024 9:57AM ; [facility] On 02/04/2024 12:09PM ; [facility] Results Includes: Results from 06/09/2023 through 06/08/2024 CBC With Differential/Platelet [facility] Ordered by Luanne NOLAND on 02/04/2024 Collected: 02/04/2024 Reported: 02/06/20 24 01:05 Last Documented On 4 1:24AM ; [facility] All test results are final unless otherw ise noted. WBC 8.4 x10E3/uL (3.4-10.8) None Last Documented On 4 1:24AM ; [facility] RBC 4.60 x10E6/uL (4.14-5.80) None Last Documented On 4 1:24AM ; [facility] Hemoglobin 14.5 g/dL (13.0-17.7) None Last Documented On 4 1:24AM ; [facility] Hematocrit 44.2 % (37.5-51.0) None Last Documented On 4 1:24AM ; [facility] MCV 96 fL (79-97) None Last Documented On 4 1:24AM ; [facility] MCH 31.5 pg (26.6-33.0) None Last Documented On 4 1:24AM ; [facility] MCHC 32.8 g/dL (31.5-35.7) None Last Documented On 4 1:24AM ; [facility] Neutrophils 54 % (Not Estab.) None Last Documented On 4 1:24AM ; [facility] Immature Granulocytes 1 % (Not Estab.) None Last Documented On 4 1:24AM ; [facility] Lymphs 33 % (Not Estab.) None Last Documented On 4 1:24AM ; [facility] Monocytes 9 % (Not Estab.) None Last Documented On 4 1:24AM ; [facility] Eos 2 % (Not Estab.) None Last Documented On 4 1:24AM ; [facility] Basos 1 % (Not Estab.) None Last Documented On 4 1:24AM ; [facility] Platelets 316 x10E3/uL (150-450) None Last Documented On 4 1:24AM ; [facility] Neutrophils (Absolute) 4.5 x10E3/uL (1.4-7.0) None Last Documented On 4 1:24AM ; [facility] Immature Grans (Abs) 0.1 x10E3/uL (0.0-0.1) None Last Documented On 4 1:24AM ; [facility] Lymphs (Absolute) 2.8 x10E3/uL (0.7-3.1) None Last Documented On 4 1:24AM ; [facility] Monocytes(Absolute) 0.8 x10E3/uL (0.1-0.9) None Last Documented On 4 1:24AM ; [facility] Eos (Absolute) 0.1 x10E3/uL (0.0-0.4) None Last Documented On 4 1:24AM ; [facility] Baso (Absolute) 0.1 x10E3/uL (0.0-0.2) None Last Documented On 4 1:24AM ; [facility] RDW 12.5 % (11.6-15.4) None Last Documented On 4 1:24AM ; [facility] Comp. Metabolic Panel (14) [facility] Ordered by Luanne NOLAND on 02/04/2024 Collected: 02/04/2024 Reported: 02/06/20 24 01:05 Last Documented On 4 1:24AM ; [facility] All test results are final unless otherw ise noted. Calcium 9.8 mg/dL (8.6-10.2) None Last Documented On 4 1:24AM ; [facility] Glucose 92 mg/dL (70-99) None Last Documented On 4 1:24AM ; [facility] BUN 34 mg/dL (8-27) H (High) Last Documented On 4 1:24AM ; [facility] Protein, Total 7.3 g/dL (6.0-8.5) None Last Documented On 4 1:24AM ; [facility] Albumin 4.8 g/dL (3.9-4.9) None Last Documented On 4 1:24AM ; [facility] Bilirubin, Total 0.4 mg/dL (0.0-1.2) None Last Documented On 4 1:24AM ; [facility] Alkaline Phosphatase 99 IU/L (44-121) None Last Documented On 4 1:24AM ; [facility] AST (SGOT) 30 IU/L (0-40) None Last Documented On 4 1:24AM ; [facility] Potassium 5.0 mmol/L (3.5-5.2) None Last Documented On 4 1:24AM ; [facility] Sodium 142 mmol/L (134-144) None Last Documented On 4 1:24AM ; [facility] Chloride 102 mmol/L (96-106) None Last Documented On 4 1:24AM ; [facility] Creatinine 1.28 mg/dL (0.76-1.27) H (High) Last Documented On 4 1:24AM ; [facility] ALT (SGPT) 25 IU/L (0-44) None Last Documented On 4 1:24AM ; [facility] Carbon Dioxide, Total 24 mmol/L (20-29) None Last Documented On 4 1:24AM ; [facility] BUN/Creatinine Ratio 27 (10-24) H (High) Last Documented On 4 1:24AM ; [facility] Globulin, Total 2.5 g/dL (1.5-4.5) None Last Documented On 4 1:24AM ; [facility] eGFR 60 mL/min/1.73 (>59) None Last Documented On 4 1:24AM ; [facility] Hemoglobin A1c [facility] Ordered by Luanne NOLAND on 02/04/2024 Collected: 02/04/2024 Reported: 02/06/20 24 01:05 Last Documented On 4 1:24AM ; [facility] All test results are final unless otherw ise noted. Hemoglobin A1c 6.3 % (4.8-5.6) H (High) Last Documented On 4 1:24AM ; [facility] Note: . . Prediabetes: 5.7 - 6.4 Diabete s: >6.4 Glycemic control for adults with diabetes: <7.0 Reported Physicians [facility] Ordered by Luanne NOLAND on 02/04/2024 Collected: 02/04/2024 Reported: 02/06/20 01:05 Last Documented On 4 1:24AM ; [facility] All test results are final unless otherw ise noted. Reported Physicians See Note None Last Documented On 02/06/2024 1:24AM ; [facility], [facility] Note: Reported Physicians:Ordering: LUANNE RICHTER History of Present Illness History of Present Illness not supported for this document type No History of Present Illness Recorded Social History Description Last Updated Alcohol use 04/30/2022 Last Documented On 3 12:24PM ; [facility] Caffeine use 04/30/2022 Last Documented On 3 12:24PM ; [facility] Exercising regularly 04/30/2022 Last Documented On 3 12:24PM ; [facility] Yes, current smoker. 04/30/2022 Last Documented On 3 12:24PM ; [facility] No recent change in diet 04/30/2022 Last Documented On 3 12:24PM ; [facility] Not using drugs 04/30/2022 Last Documented On 3 12:24PM ; [facility] Tobacco use 04/30/2022 Last Documented On 3 12:24PM ; [facility] Smoker occasional cigar 03/11/2021 Last Documented On 2 1:56PM ; [facility] No recent change in diet 09/17/2020 Last Documented On 1 11:42AM ; [facility] Yes, current smoker. 09/17/2020 Last Documented On 1 11:42AM ; [facility] Smoking Status Unknown Procedures and Surgical History Includes: Procedures from 06/09/2023 through 06/08/2024 Procedures Code Diagnosis Performing Provider Service Location Service Date NEUROMUSCULAR REEDUCATION (GP) 74674 Stress fracture, right femur, subs for fx w routn heal, Oth tear of medial meniscus, current injury, r knee, subs Rinku M Aashish PT [facility] 03/10/2024 Last Documented On 5 2:14PM ; [facility] NEUROMUSCULAR REEDUCATION (GP) 93100 Stress fracture, right femur, subs for fx w routn heal, Oth tear of medial meniscus, current injury, r knee, subs Rinku M Aashish PT [facility] 03/08/2024 Last Documented On 5 2:11PM ; [facility] NEUROMUSCULAR REEDUCATION (GP) 89865 Stress fracture, right femur, subs for fx w routn heal, Oth tear of medial meniscus, current injury, r knee, subs Rinku M Zendejas PT [facility] 03/03/2024 Last Documented On 5 4:21PM ; [facility] NEUROMUSCULAR REEDUCATION (GP) 53538 Stress fracture, right femur, initial encounter for fracture, Oth tear of medial meniscus, current injury, r knee, init Rinku Zendejas PT [facility] 03/01/2024 Last Documented On 5 11:24AM ; [facility] PT Eval - Mod - Complexity (GP) 49458 Stress fracture, right femur, initial encounter for fracture, Oth tear of medial meniscus, current injury, r knee, init Rinku Zendejas PT [facility] 03/01/2024 Last Documented On 5 11:24AM ; [facility] [employer] POLAR Oth tear of medi al meniscus, current injury, r knee, subs Luciano Betts MD [facility] 02/12/2024 Last Documented On 5 4:39PM ; [facility] ATS med OR lat Meniscus REPAIR (Distinct procedure, RIGHT) 76054 Oth tear of medial meniscus, current injury, r knee, init Luciano Betts MD [facility] Surgical Division 02/12/2024 Last Documented On 4 11:03AM ; [facility] TREATMENT OF THIGH FRACTURE (RIGHT) 61696 Stress fracture, right femur, initial encounter for fracture Luciano Betts MD [facility] Surgical Division 02/12/2024 Last Documented On 4 11:03AM ; [facility] Surgical History Last Updated Past Surgical History: thyro id removed / Kidney Stone Extraction / Rotator Cuff Repair 04/30/2022 Last Documented On 3 12:24PM ; [facility] Medical History Includes: Medical History in patient's chart Description Last Updated History of arthritis 04/30/2022 Last Documented On 3 12:24PM ; [facility] History of heart disease 04/30/2022 Last Documented On 3 12:24PM ; [facility] History of History of Cancer 04/30/2022 Last Documented On 3 12:24PM ; [facility] History of History of Gallbladder 2022 Last Documented On 3 12:24PM ; [facility] History of Liver Disease 04/30/2022 Last Documented On 3 12:24PM ; [facility] History of Thyroid Disease 04/30/2022 Last Documented On 3 12:24PM ; [facility] Arthritis 09/17/2020 Last Documented On 1 11:42AM ; [facility] History of Cancer thyroid 09/17/2020 Last Documented On 1 11:42AM ; [facility] History of Gallbladder RCT repair 2020 Last Documented On 1 11:42AM ; [facility] Liver Disease 09/17/2020 Last Documented On 1 11:42AM ; [facility] No recent immunization for flu 1 Last Documented On 1 11:42AM ; [facility] No recent immunization for pneumococcal pneumonia 09/17/2020 Last Documented On 1 11:42AM ; [facility] Thyroid Disease 09/17/2020 Last Documented On 1 11:42AM ; [facility] Family History Includes: Family History in patient's chart Description Last Updated Paternal history of family history of he art disease 04/30/2022 Last Documented On 3 12:24PM ; [facility] Family history of heart disease 09/18/19 21 Last Documented On 1 11:42AM ; [facility] Family history of rheumatoid arthritis 0 09/17/2020 Last Documented On 1 11:42AM ; [facility] Review of Systems Review of Systems not supported for this document type No Review of Systems Recorded Mental Status Description No anxiety Functional Status No Functional Status Recorded Physical Exam Physical Exam not supported for this document type No Physical Exam Recorded Immunizations Includes: Immunizations in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
[2024-06-08 12:20] LABS: Basophils # 0.1 K/mm3 (0-0.2); Basophils % 0.8 % (0.1-2.0); Eosinophils # 0.1 Kmm3 (0.0-0.4); Eosinophils % 1.2 % (0.1-12.0); Hematocrit 42.5 % (42.0-52.0); Hemoglobin 14.1 g/dL (14.1-18.0); Lymphocytes # 1.5 K/mm3 (0.7-4.5); Lymphocytes % 13.2 % (10-50); Mean Corpuscular HGB Conc 33.2 g/dL (31.8-35.4); Mean Corpuscular Hemoglobin 30.5 pg (27.0-31.2); Mean Platelet Volume 9.7 fl (7.4-10.4); Monocytes # 0.9 K/mm3 (0.1-1.0); Monocytes % 8.4 % (1.7-9.3); Neutrophils # 8.4 K/mm3 (1.8-7.8); Nucleated Red Blood Cells # 0 10^3/uL; Nucleated Red Blood Cells % 0 %; Platelet Count 262 K/mm3 (142-424); Red Blood Count 4.62 M/mm3 (4.60-6.20); Red Cell Distribution Width-SD 43.5 fL
[2024-06-08] MEDS: ACETAMINOPHEN 1,000MG/100ML VIAL 1000 MG IV (12:22)
[2024-06-08] MEDS: 0.9 % SODIUM CHLORIDE 1000ML 1,000 ML 999 ML IV (12:23)
[2024-06-08] MEDS: HYDROMORPHONE 2MG/ML SYRINGE 1 MG IV (12:23)
[2024-06-08 12:24] LABS: Alanine Aminotransferase 50 U/L (12-78); Albumin Level 4.6 g/dl (3.5-5.0); Albumin/Globulin Ratio 1.6 (1.1-1.8); Alkaline Phosphatase 109 U/L (38-126); Anion Gap 11.4 mEq/L (5-15); Aspartate Amino Transferase 49 U/L (17-59); Bilirubin,Total 0.6 mg/dl (0.2-1.3); Blood Urea Nitrogen 18 mg/dl (9-20); Calcium 9.6 mg/dl (8.4-10.2); Carbon Dioxide 28 mmol/L (22.0-30.0); Chloride 107 mmol/L (98-107); Creatinine Clearance Estimated 101 mL/min (50-200); Estimated Glomerular Filt Rate 74 ml/min (>60); GFR (African American) 89 ML/MIN (>60); Globulin 2.9 g/dL (1.3-3.2); Glucose 127 mg/dl (74-100); Potassium 4.4 mmoL/L (3.5-5.1); Sodium 142 mmol/L (136-145); Total Protein,Serum 7.5 g/dl (6.3-8.2)
[2024-06-08 12:41] LABS: Procalcitonin 0.051 ng/mL (0.0-2.0)
[2024-06-08] MEDS: CEFTRIAXONE 1 GM 1 GM in 0.9 % SODIUM CHLORIDE 50 ML IV (12:47)
--- NOTE | 2024-06-08 12:56 | PC.NURSE ---
talked to [facility] Don to speak with practice professional for urology. Dr. Bai will call back
--- NOTE | 2024-06-08 13:38 | PC.NURSE ---
IVAN NOLAND spoke with hospital medicine and urology at [facility] and patient is accepted as of 134, currently awaiting on bed assignment unsure if one will become available today, will call back in an hour for bed status update
[2024-06-08] MEDS: HYDROMORPHONE 2MG/ML SYRINGE 0.5 MG IV (13:41)
--- NOTE | 2024-06-08 14:12 | PC.NURSE ---
[facility] called with a bed assignment.
== END 2024-06-08 14:35 | disposition short-term general hospital (02) ==
PROVIDERS: Physician Assistant; Emergency Provider Emergency Medicine; PCP Nurse Practitioner Family
DX: N13.0 Hydronephrosis with ureteropelvic junction obstruction (principal); N13.4 Hydroureter; R10.31 Right lower quadrant pain
CPT/HCPCS: 74176; 80053; 81001; 84145; 85025; 96361; 96365; 96366; 96375; 96376; 99291; J0131; J0696; J1171; J1885; J2405; J7030

== ENCOUNTER 2024-06-20 10:44 | Outpatient (CLI) | payer MEDICARE, SELFPAY ==
--- NOTE | 2024-06-20 10:49 | XR_ITS ---
FINAL REPORT CLINICAL HISTORY: dyspnea COMPARISON: None FINDINGS: PA and lateral views of the chest were obtained. The cardiac and mediastinal silhouettes are within normal limits. The lungs are clear. There is no pleural effusion or pneumothorax. No acute osseous abnormality is identified. IMPRESSION: No radiographic evidence of acute cardiac or pulmonary disease. Reviewed, Interpreted and Dictated by Kyra Alberto MD Transcribed by Key Meredith Authenticated and [facility]
--- NOTE | 2024-06-20 10:49 | XR_ITS ---
FINAL REPORT CLINICAL HISTORY: abd pain, renal stones COMPARISON: None FINDINGS: A single supine view the abdomen was obtained. The bowel gas pattern is nonspecific but nonobstructive. There are no pathologic calcifications, specifically no renal stones are identified. There is a 5 mm right pelvic calcification present, that may represent a phlebolith or a distal right ureteral stone. Osseous structures demonstrate changes from a posterior lower lumbar fusion. IMPRESSION: Nonspecific but nonobstructive bowel gas pattern. 5 mm right pelvic calcification, that may represent a phlebolith or a distal right ureteral stone. Reviewed, Interpreted and Dictated by Kyra Alberto MD Transcribed by Key Meredith Authenticated and [facility]
[2024-06-20 13:38] LABS: Coronavirus 19, PCR Not Detected (NotDetected); Influenza A, PCR Not Detected (NotDetected); Influenza B, PCR Not Detected (NotDetected); Microscopic, Urine URINE MICROSCOPIC (MICROSCOPIC); Respiratory Syncytial Virus Not Detected (NotDetected)
[2024-06-20 14:13] LABS: Appearance,Urine CLEAR (Clear); Bilirubin,Urine Negative (Negative); Blood, Urine 1+ (Negative); Color,Urine YELLOW (Yellow); Glucose,Urine (UA) Negative (Negative); Ketones,Urine Negative (Negative); Leukocyte Esterase,Urine TRACE (Negative); Nitrate,Urine Negative (Negative); Protein,Urine TRACE (Negative); Specific Gravity, Urine 1.015 (1.005-1.030); Urobilinogen,Urine 0.2 EU/dl (0.2)
[2024-06-20 14:48] LABS: Basophils # 0.1 K/mm3 (0-0.2); Basophils % 0.9 % (0.1-2.0); Eosinophils # 0.3 Kmm3 (0.0-0.4); Eosinophils % 2.3 % (0.1-12.0); Hematocrit 42.4 % (42.0-52.0); Hemoglobin 13.8 g/dL (14.1-18.0); Lymphocytes # 1.9 K/mm3 (0.7-4.5); Lymphocytes % 13.8 % (10-50); Mean Corpuscular HGB Conc 32.5 g/dL (31.8-35.4); Mean Corpuscular Hemoglobin 30.2 pg (27.0-31.2); Mean Corpuscular Volume 92.8 fl (80-94); Mean Platelet Volume 9.9 fl (7.4-10.4); Monocytes # 0.8 K/mm3 (0.1-1.0); Monocytes % 5.5 % (1.7-9.3); Neutrophils # 10.8 K/mm3 (1.8-7.8); Neutrophils % 76.9 % (37.0-80.0); Nucleated Red Blood Cells # 0 10^3/uL; Nucleated Red Blood Cells % 0 %; Platelet Count 335 K/mm3 (142-424); Red Blood Count 4.57 M/mm3 (4.60-6.20); Red Cell Distribution Width 12.8 % (11.5-17.5); Red Cell Distribution Width-SD 43.5 fL; White Blood Count 14.1 K/mm3 (4.8-10.8)
[2024-06-20 15:00] LABS: Albumin Level 4.7 g/dl (3.5-5.0); Chloride 103 mmol/L (98-107); Potassium 4.8 mmoL/L (3.5-5.1); Sodium 138 mmol/L (136-145)
[2024-06-20 15:03] LABS: Alanine Aminotransferase 35 U/L (12-78); Alkaline Phosphatase 122 U/L (38-126); Anion Gap 12.8 mEq/L (5-15); Aspartate Amino Transferase 32 U/L (17-59); Bilirubin,Total 0.4 mg/dl (0.2-1.3); Blood Urea Nitrogen 20 mg/dl (9-20); Calcium 9.5 mg/dl (8.4-10.2); Carbon Dioxide 27 mmol/L (22.0-30.0); Estimated Glomerular Filt Rate 55 ml/min (>60); GFR (African American) 66 ML/MIN (>60); Globulin 2.4 g/dL (1.3-3.2); Glucose 114 mg/dl (74-100); Total Protein,Serum 7.1 g/dl (6.3-8.2)
[2024-06-20 15:48] LABS: Human Rhinovirus Detected (NotDetected)
[2024-06-20 15:54] LABS: Bacteria,Urine Trace /lpf; Mucus,Urine Trace /lpf; Squamous Epithelial Cell,Urine Occasional #/hpf (0-5)
== END 2024-06-20 23:59 | disposition home or self-care (01) ==
LOC: RAD 10:45
PROVIDERS: PCP Nurse Practitioner Family; Visit Provider Nurse Practitioner Family
DX: R06.02 Shortness of breath (principal); N20.0 Calculus of kidney; R05.9 Cough, unspecified; R51.9 Headache, unspecified; R09.89 Other specified symptoms and signs involving the circulatory and respiratory systems; R53.83 Other fatigue
CPT/HCPCS: 71046; 74018; 80053; 81001; 85025; 87086; 87088; 87186; 87631

== ENCOUNTER 2024-06-27 09:41 | Outpatient (CLI) | payer MEDICARE, SELFPAY ==
[2024-06-27 10:44] VITALS: BMI 29.7
--- NOTE | 2024-06-27 10:44 | PC.NURSE ---
0940 - Spoke w/ Montez Hobbs @ D[facility] APRN's office. Provider okay w/ placing a midline v PICC line d/t pt only requiring 10 days of abx.
[2024-06-27] MEDS: DAPTOmycin 750 MG in 0.9 % SODIUM CHLORIDE 50 ML 100 MG IV (11:02)
[2024-06-27 11:10] VITALS: BP 131/89; PULSE 87; RESP 18; TEMP 36.7; O2SAT 99
[2024-06-27] MEDS: SODIUM CHLORIDE 0.9% 50ML BAG 50 ML IV (11:11)
[2024-06-27] MEDS: SODIUM CHLORIDE 0.9% 10ML FLUSH SYRINGE 10 ML IV (11:11)
[2024-06-27 11:14] LABS: Chloride 109 mmol/L (98-107); Potassium 4.4 mmoL/L (3.5-5.1); Sodium 138 mmol/L (136-145)
[2024-06-27 11:15] LABS: Creatine Kinase 67 U/L (55-170)
[2024-06-27 11:17] LABS: Blood Urea Nitrogen 20 mg/dl (9-20); Creatinine Clearance Estimated 99 mL/min (50-200); Estimated Glomerular Filt Rate 96 ml/min (>60); GFR (African American) 116 ML/MIN (>60)
[2024-06-27 11:18] LABS: Anion Gap 6.4 mEq/L (5-15); Calcium 8.9 mg/dl (8.4-10.2); Carbon Dioxide 27 mmol/L (22.0-30.0); Glucose 109 mg/dl (74-100)
[2024-06-27 11:50] VITALS: BP 133/90; PULSE 88
== END 2024-06-27 12:00 | disposition home or self-care (01) ==
LOC: INF 09:43
PROVIDERS: PCP Nurse Practitioner Family; Visit Provider Nurse Practitioner Family
DX: N20.0 Calculus of kidney (principal)
CPT/HCPCS: 36410; 80048; 82550; 96365; J0878

== ENCOUNTER 2024-06-28 11:12 | Outpatient (CLI) | payer MEDICARE, SELFPAY ==
--- OUTSIDE RECORDS SUMMARY | 2024-06-28 11:17 | XMS_ITS | Data Portability ---
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 Postoperative course from L4-5 PLIF done earlier this year was uncomplicated. He was playing with his grandson when he had sudden onset pain 10/2022. PMH: PSHx: L4-5 PLIF (05/03/2022, [place]) 1. MRI lumbar spine 01/15/2023 demonstrates previous L4-5 fusion without complication. Severe right L5-S1 foraminal narrowing is present The above image findings were discussed with the patient. The patient has undergone no recent injection therapy. Patient has participated in a physician directed home exercise program for at least 6 weeks in the last 6 months Presentation is consistent with lumbar radiculopathy adjacent to his fusion. I recommend: 1. L5-S1 IL JOSE (rightward) performed today External records were reviewed and discussed as above, including imaging, clinical notes, and relevant labs. [email or web address] Not available 01/28/2023 13:59:22 11/23/2023 11/23/2023 Assessment: Jay Thomas is a 68-year-old presenting to the clinic for his first follow-up status post right L5-S1 MIS hemilaminectomy on 06/09/[address] Barfield. Patient is status post L4-5 PLIF on 05/03/[address] Barfield. Since his surgery, patient noted improvement to right low back pain with radiation to anterior lateral thigh in addition to symptom of right lower extremity giving out. Although patient reported relief, patient notes his symptoms have returned to full intensity within the last few months. Patient additionally reports new onset left-sided neck pain with radiation to the left side of his face as well as numbness to lateral aspect of left upper extremity with termination of the elbow. We would like patient undergo lumbar MRI with and without contrast to look for new neural impingement that may be contributing to his symptoms as well as differentiate between scar tissue versus disc herniation. Patient to additionally undergo lumbar CT to evaluate bony anatomy. We would like patient to additionally undergo cervical MRI due to new symptoms. Patient previously underwent cervical MRI with notable central canal stenosis. Patient would like to be called with results and plan moving forward for injections vs surgical management of his symptoms. Imaging: No new imaging to review at this time. Plan: Diclofenac refill Lumbar MRI with and without contrast Lumbar CT without contrast Cervical MRI without contrast [email or web address] Not available 11/23/2023 09:43:36 Plan of Treatment Reminders Order Date Submit Date Provider Last Modified By Organization Details Last Modified Time Details Appointments RECHECK 2024 01:45P M DEVIN PUENTE PA-C Not available Not available Not available Lab surgical pathology study 2024 025 [facility], [address] [place], [address], 04/12/2024 17:44:22 urinalysi s panel, auto 2023 024 megan [facility], [address], [place], [address], 05/11/2023 13:13:00 Referral None recorded. Procedures epidural steroid injection , lumbar interlami kelley (PROC) 2022 023 [email or web address] [facility], [address] [facility], [place], [address], 01/28/2023 14:13:10 Surgeries None recorded. Imaging MRI, cervical spine, w/o contrast 2023 [facility], [address] [facility], [place], [address], 12/15/2023 17:11:59 Medication Orders diclofena c sodium 75 mg tablet,de layed release 2023 [facility], [address] [place] [address], [id number], 11/23/2023 09:45:15 hydromorp citlali 4 mg tablet 2023 [facility], [address] [place] [address], [id number], 05/11/2023 13:14:01 Patient TargetsNo targets recorded. Patient Instructions Encounter Date Encounter Id Patient Instructions Last Modified By Organization Details Last Modified Time 04/11/2024 [id number] - Benign moles and keratoses seen on [...] 04/11/2024 14:52:24 Reason for Referral None Reported. Results Created Date Observation Date Name Description Value Unit Range Abnormal Flag Note LastModifiedBy Organization Detail LastModifiedTime 05/11/1905/11/2023 urina lysis panel , auto Unknown Analyte Clean Catch Not Available [facility] [address], [place], [address], 05/11/2023 12:21:10 05/11/1905/11/2023 urina lysis panel , auto Unknown Analyte Yellow Not Available [facility] [address], [place], [address], 05/11/2023 12:21:10 05/11/19 24 05/11/2023 urina lysis panel , auto Unknown Analyte Clear Not Available [facility] [address], [place], [address], 05/11/2023 12:21:10 05/11/19 24 05/11/2023 urina lysis panel , auto Unknown Analyte 1.015 Not Available [facility] [address], [place], [address], 05/11/2023 12:21:10 05/11/19 24 05/11/2023 urina lysis panel , auto Unknown Analyte 1.003- 1.035 Not Available [facility] [address], [place], [address], 05/11/2023 12:21:10 05/11/19 24 05/11/2023 urina lysis panel , auto Unknown Analyte 5.0 Not Available [facility] [address], [place], [address], 05/11/2023 12:21:10 05/11/19 24 05/11/2023 urina lysis panel , auto Unknown Analyte 5.0-8. 0 Not Available [facility] [address], [place], [address], 05/11/2023 12:21:10 05/11/19 24 05/11/2023 urina lysis panel , auto Unknown Analyte 25 Elvia/ul Trace Not Available [facility] [address], [place], [address], 05/11/2023 12:21:10 05/11/19 24 05/11/2023 urina lysis panel , auto Unknown Analyte Negati ve Not Available [facility] [address], [place], [address], 05/11/2023 12:21:10 05/11/19 24 05/11/2023 urina lysis panel , auto Unknown Analyte Negati ve Not Available [facility] [address], [place], [address], 05/11/2023 12:21:10 05/11/19 24 05/11/2023 urina lysis panel , auto Unknown Analyte Negati ve Not Available [facility] [address], [place], [address], 05/11/2023 12:21:10 05/11/19 24 05/11/2023 urina lysis panel , auto Unknown Analyte Negati ve Not Available [facility] [address] [place] [address] [address], [place], [address], 05/11/2023 12:21:10 05/11/19 24 05/11/2023 urina lysis panel , auto Unknown Analyte Negati ve Not Available [facility] [address], [place], [address], 05/11/2023 12:21:10 05/11/19 24 05/11/2023 urina lysis panel , auto Unknown Analyte Normal Not Available [facility] [address], [place], [address], 05/11/2023 12:21:10 05/11/19 24 05/11/2023 urina lysis panel , auto Unknown Analyte Normal Not Available [facility] [address], [place], [address], 05/11/2023 12:21:10 05/11/19 24 05/11/2023 urina lysis panel , auto Unknown Analyte 15 mg/dl (Sm) Not Available [facility] [address], [place], [address], 05/11/2023 12:21:10 05/11/19 24 05/11/2023 urina lysis panel , auto Unknown Analyte Negati ve Not Available [facility] [address], [place], [address], 05/11/2023 12:21:10 05/11/19 24 05/11/2023 urina lysis panel , auto Unknown Analyte 1 mg/dl Not Available [facility] [address], [place], [address], 05/11/2023 12:21:10 05/11/19 24 05/11/2023 urina lysis panel , auto Unknown Analyte Normal 1 mg/dl Not Available [facility] [address], [place], [address], 05/11/2023 12:21:10 05/11/19 24 05/11/2023 urina lysis panel , auto Unknown Analyte Negati ve Not Available [facility] [address], [place], [address], 05/11/2023 12:21:10 05/11/19 24 05/11/2023 urina lysis panel , auto Unknown Analyte Negati ve Not Available [facility] [address] [facility] [address], [place], [address], 05/11/2023 12:21:10 05/11/19 24 05/11/2023 urina lysis panel , auto Unknown Analyte 250 Sera/ul Not Available [facility] [address] [facility] [address], [place], [address], 05/11/2023 12:21:10 05/11/19 24 05/11/2023 urina lysis panel , auto Unknown Analyte Negati ve Not Available [facility] [address] [facility] [address], [place], [address], 05/11/2023 12:21:10 04/11/19 25 04/11/2024 SURGI LORETO surgical SEE BELOW normal Surgi loreto Patho logy Repor t NAME: TAY THOMAS PATH: [id number] DATE of : 10/31 7 Copy to: Diagn osis: A) Right proxi mal thigh : Lenti go. B) Right dista l thigh : Lenti go SOURC E OF SPECI MEN: SKIN BIOPS Y, RIGHT PROXI MAL THIGH SKIN BIOPS Y, RIGHT DISTA L THIGH CLINI LORETO INFOR MATIO N: D48.5 R/O LENTI GO vs LENTI GO MALIG NA Gross Descr iptio n: A) Delmis valentino's name and date of verif ied. Recei juan in forma tiera label ed with the delmis nt's name and desig nated righ t proxi mal thigh is a shave biops y of skin (0.9 x 0.7 x 0.1 cm). The epide rmal surfa ce is steven and brown , varie gated , and rough ened. The chelle n is inked blue. The speci men is trise cted and entir daron submi tted in one casse tte label ed A1. B) Delmis valentino's name and date of verif ied. Recei juan in forma tiera label ed with the delmis nt's name and desig nated righ t dista l thigh is a shave biops y of skin (1.0 x 0.9 x 0.1 cm). The epide rmal surfa ce is steven and brown , varie gated , sligh tly mottl ed, and rough ened. The chelle n is inked blue. The speci men is trise cted and entir daron submi tted in one casse tte label ed B1. SB 04/11 08:21 PM Micro scopi c Descr iptio n: A) Secti ons demon strat e actin icall y damag ed skin with unifo rm elong ation of epide rmal rete with basil ar hyper pigme ntati on of kerat inocy alesia. No atypi loreto melan ocyti c proli ferat ion is ident ified . B) Secti ons demon strat e actin icall y damag ed skin with unifo rm elong ation of epide rmal rete and basil ar hyper pigme ntati on of kerat inocy alesia. A few scatt ered pigme nted melan ophag es are noted withi n the papil sybil dermi s. No atypi loreto melan ocyti c proli ferat ion is seen. BRENDA HUNTER MD Margie d Out Date: 04/12 17:44 Page 1 of 1 Not Available [facility] [address] [place] [address], [phone], 04/12/2024 17:44:22 01/16/20 23 01/15/2023 MRI, lumba r spine , w/wo contr ast [facility] [address] [place] [address], [place] [address] Patien t Name: TAY Duarte t : 954 Patien t Orderi ng Provid er: SUMMER SOLIS T EXAM DATE: 2022 EXAM: MR LUMBAR SPINE W/WO CONTRA ST HISTOR Y: 47-yea r-old male with low back pain radiat ing into the right leg and prior lumbar surger y. COMPAR LITZY: Radiog raph dated 023 The patien t did not requir e sedati on for this exam. A baseli ne serum creati nine with eGFR was obtain ed prior to inject ion of contra st medium due to the patien ts risk factor s for JENNIFER. Calcul ated eGFR at time of exam was GFR>90 FINDIN GS: The patien t is status post discec vivi, interb finn graft, director of operations ior fusion and cliff ctomy at L4-L5. There is parama gnetic artifa ct from the pedicl e screws , director of operations ior fusion hardwa re and interb finn spacer . There is minima l anteri or listhe sis of L4 on L5. There is no eviden ce of fractu re. There is mild to modera te anteri or margin al osteop hytic spurri ng. No pathol ogic lesion is identi fied in the lumbar spine. The conus medull jace is normal in appear ance at the L1-L2 level. T11-T1 2 and T12-L1 : There are minima l disc bulges . L1-L2: There is a mild disc bulge and mild endpla te spurri ng. There is no centra l canal stenos is. There is no neural forami nal stenos is. L2-L3: There is a minima l disc bulge, mild endpla te spurri ng and mild facet arthro jocelin. There is no centra l canal stenos is. There is mild right neural forami nal stenos is. L3-L4: There is a mild disc bulge, mild endpla te spurri ng and mild to modera te facet arthro jocelin. There is mild centra l canal stenos is. There is mild/m oderat e bilate ral neural forami nal stenos is. L4-L5: There is prior fusion with residu al endpla te spurri ng. There is no centra l canal stenos is. There is modera te bilate ral neural forami nal stenos is. L5-S1: There is a broad- based disc protru ginny extend ing into the right neural forame n with associ ated endpla te spurri ng. There is mild facet arthro jocelin. There is no centra l canal stenos is. There is severe right and mild left neural forami nal stenos is. After intrav enous admini strati on of [address] ([facility] [place] [id number] 2), there is normal for surgic al enhanc ement in the cliff ctomy defect . The parasp inous muscul ature is symmet sharmin and normal in signal . IMPRES GINNY: 1. The patien t is status post PLIF at L4-L5. There is modera te residu al neural forami nal narrow ing. 2. There is severe right neural forami nal narrow ing at L5-S1. 3. There is mild/m oderat e bilate ral neural forami nal narrow ing and mild centra l canal narrow ing at L3-L4. Interp reted By: Taylor alcantara MD Electr onical ly Signed By: Taylor alcantara MD on 2022 2:10 PM [email or web address] [facility] [address] [place] [address], [phone], 01/23/2023 16:11:40 12/15/19 24 12/15/2023 MRI, cervi loreto spine , w/o contr ast [address] [place] [address] Gerald lozada Name: TAY lozada : 954 Gerald lozada Orderi ng Provid er: LUCHO ANN EXAM DATE: 2023 EXAM: MR CERVIC AL W/O CONTRA ST HISTOR Y: 68-yea r-old male with parest hesia in his neck and left arm. COMPAR LITZY: CT dated 023 FINDIN GS: There is diffus e straig htenin g of the cervic al spine. There is minima l anteri or listhe sis of C4 on C5 and director of operations ior listhe sis of C5 on C6. There is no fractu re or pathol ogic intrao sseous lesion . There is severe anteri or margin al osteop hytic spurri ng. No parasp inous soft tissue abnorm ality is identi fied. The visual ized spinal cord and director of operations ior fossa of the brain are normal in appear ance. The cranio cervic al juncti on is normal in appear ance. There are mild degene rative change s at C1-C2. C2-C3: There is a broad- based disc protru ginny and right greate r than left uncove rtebra l spurri ng. There is mild centra l canal stenos is. There is severe right neural forami nal stenos is. C3-C4: There is a broad- based disc protru ginny, promin ent uncove rtebra l spurri ng, and modera te left and mild right facet arthro jocelin. There is modera te centra l canal stenos is. There is severe bilate ral neural forami nal narrow ing. C4-C5: There is a broad- based disc protru ginny, mild uncove rtebra l spurri ng and mild facet arthro jocelin. There is modera te centra l canal stenos is. There is modera te left and mild right neural forami nal narrow ing. C5-C6: There is a broad- based disc protru ginny and promin ent uncove rtebra l spurri ng. There is mild facet arthro jocelin. There is severe centra l canal stenos is. There is severe bilate ral neural forami nal stenos is. C6-C7: There is promin ent uncove rtebra l spurri ng and a broad- based disc bulge/ protru ginny. There is mild centra l canal stenos is. There is severe bilate ral neural forami nal stenos is. C7-T1: There is severe uncove rtebra l spurri ng with a diffus e disc/o steoph yte comple x. There is no centra l canal stenos is. There is severe bilate ral neural forami nal narrow ing. There is a small centra l disc protru ginny and mild endpla te spurri ng at T1-T2. There is no centra l canal narrow ing and minima l neural forami nal narrow ing. IMPRES GINNY: 1. There are severe degene rative change s in the cervic al spine with severe centra l canal narrow ing at C5-C6, modera te centra l canal narrow ing at C3-C4 and C4-C5, and mild centra l canal narrow ing at C2-C3 and C6-C7. 2. There is severe bilate ral neural forami nal stenos is at C3-C4 and C5-C6 throug h C7-T1. There is severe right neural forami nal stenos is at C2-C3. Interp reted By: Taylor alcantara MD Electr onical ly Signed By: Taylor alcantara MD on 2023 5:06 PM [facility] [address] [place] [address], [phone], 01/27/2024 16:57:41 12/16/19 24 12/15/2023 MRI, lumba r spine , w/o contr ast [address] [address] Patiryan t Name: TAY lozada : 952 Patiryan lozada Orderi ng Provid er: NOEL BARFIELD EXAM DATE: 2023 EXAM: MR LUMBAR W/O CONTRA ST HISTOR Y: 68-yea r-old male with low back and buttoc k pain radiat ing to the right leg. There is prior lumbar fusion . COMPAR LITZY: CT scan of the same date and MRI dated 2022. FINDIN GS: Again seen is prior discec vivi, interb finn graft, director of operations ior fusion and cliff ctomy at L4-L5. There is parama gnetic artifa ct from the pedicl e screws , director of operations ior fusion hardwa re and interb finn spacer . There is no eviden ce of compli cation . There is mild levocu rvatur e from L1 throug h L3 and mild dextro curvat ure from L3 throug h L5. There is minima l anteri or listhe sis of L4 on L5. There is no fractu re. There is mild to modera te anteri or margin al osteop hytic spurri ng. No pathol ogic lesion is identi fied in the lumbar spine. There are type II Modic change s at L1-L2, L2 on L3, L3-L4 and L5-S1. The conus medull jace is normal in appear ance at the L1-L2 level. T11-T1 2: There is a small disc bulge and right- sided facet arthro jocelin. There is no centra l canal stenos is. There is mild right neural forami nal narrow ing. T12-L1 : This interv ertebr al disc is essent ially normal in appear ance. L1-L2: There is a broad- based disc bulge and mild endpla te spurri ng. There is no centra l canal stenos is. There is no neural forami nal stenos is. L2-L3: There is a mild disc bulge, right- sided endpla te spurri ng and minima l facet arthro jocelin. There is no centra l canal stenos is. There is mild right neural forami nal stenos is. L3-L4: There is a broad- based disc bulge/ protru ginny, mild endpla te spurri ng and mild to modera te facet arthro jocelin. There is modera te centra l canal stenos is. There is modera te/sev ere bilate ral neural forami nal stenos is. L4-L5: There is prior fusion with residu al endpla te spurri ng. There is no centra l canal stenos is. There is severe left and modera te/sev ere right neural forami nal stenos is. L5-S1: There is a right partia l cliff ctomy. There is diffus e promin ence of the interv ertebr al disc extend ing into the right neural forame n with associ ated endpla te spurri ng. There is mild facet arthro jocelin. There is no centra l canal stenos is. There is severe right and modera te left neural forami nal stenos is. The parasp inous muscul ature is symmet sharmin and normal in signal . IMPRES GINNY: 1. The patien t is status post PLIF at L4-L5. There is severe left and modera te right residu al neural forami nal narrow ing. 2. There is severe right and modera te left neural forami nal narrow ing at L5-S1. There is a right partia l cliff ctomy and possib le prior discec vivi at this level. 3. There is modera te centra l canal stenos is and modera te/sev ere bilate ral neural forami nal narrow ing at L3-L4. Interp reted By: Taylor alcantara MD Electr onical ly Signed By: Taylor alcantara MD on 2023 7:09 AM [email or web address] [facility] Radiology [address], [address], 01/04/2024 08:05:34 12/16/19 24 12/15/2023 CT, lumba r spine , w/o contr ast [address] [address] Patiryan t Name: TAY lozada : 954 [facility]: NOEL BARFIELD EXAM DATE: 2023 EXAM: CT LUMBAR WITHOU T CONTRA ST HISTOR Y: 68-yea r-old male with low back pain and prior lumbar surger y. COMPAR LITZY: MRI of the same date TECHNI QUE: 1 mm direct axial slices were obtain ed throug h the lumbar spine. Comput er-gen erated axial, sagitt al, and hughes l recons tructi ons are also provid ed for interp retati on. FINDIN GS: Again seen is prior discec vivi, interb finn graft, director of operations ior fusion and cliff ctomy at L4-L5. There is beam harden ing artifa ct from the pedicl e screws , director of operations ior fusion hardwa re and interb finn spacer . There is no eviden ce of loosen ing of the hardwa re or hardwa re failur e. There is mild levocu rvatur e from L1 throug h L3 and mild dextro curvat ure from L3 throug h L5. There is minima l director of operations ior listhe sis of L1 on L2 and L2 on L3. There is no fractu re. There is mild to modera te anteri or margin al osteop hytic spurri ng. No pathol ogic lesion is identi fied in the lumbar spine. T11-T1 2: There is a small disc bulge and right- sided facet arthro jocelin. There is no centra l canal stenos is. There is mild right neural forami nal narrow ing. T12-L1 : This interv ertebr al disc is essent ially normal in appear ance. L1-L2: There is a broad- based disc bulge and mild endpla te spurri ng. There is no centra l canal stenos is. There is no neural forami nal stenos is. L2-L3: There is a mild disc bulge, right- sided endpla te spurri ng and minima l facet arthro jocelin. There is no centra l canal stenos is. There is mild right neural forami nal stenos is. L3-L4: There is a broad- based disc bulge/ protru ginny, mild endpla te spurri ng and mild to modera te facet arthro jocelin. There is modera te centra l canal stenos is. There is modera te/sev ere bilate ral neural forami nal stenos is. L4-L5: There is prior fusion with residu al endpla te spurri ng and facet arthro jocelin. There is no centra l canal stenos is. There is severe left and modera te/sev ere right neural forami nal stenos is. L5-S1: There is a right partia l cliff ctomy. There is diffus e promin ence of the interv ertebr al disc extend ing into the right neural forame n with associ ated endpla te spurri ng. There is modera te to severe facet arthro jocelin. There is no centra l canal stenos is. There is severe right and modera te left neural forami nal stenos is. The parasp inous muscul ature is symmet sharmin and normal in signal . IMPRES GINNY: 1. The patien t is status post PLIF at L4-L5. There is no eviden ce of loosen ing of the hardwa re. There is bridgi ng bone in the director of operations ior elemen ts. There is severe left and modera te right residu al neural forami nal narrow ing. 2. There is severe right and modera te left neural forami nal narrow ing at L5-S1. There is a right partia l cliff ctomy and possib le prior discec vivi at this level. 3. There is modera te centra l canal stenos is and modera te/sev ere bilate ral neural forami nal narrow ing at L3-L4. Interp reted By: Taylor alcantara MD Electr onical ly Signed By: Taylor alcantara MD on 2023 7:[email or web address] [facility] [address], [address], 01/04/2024 08:05:33 Result Notes None recorded. Problems No Known Problems Procedures Surgical History Date Name Laterality Status Provider Name and Address Organization Details Recorded Time 04/11/19 25 Biopsy Skin Lesion; Tangential completed [facility] 04/11/2024 14:41:10 04/11/19 25 Injection, Intralesional completed DUGLAS BASURTO MD [address] [place] [address], [phone], [facility] 04/11/2024 18:30:27 04/11/19 25 Destruction Premalignant Lesion(s) completed [facility] 04/11/2024 14:44:27 01/29/20 23 Lumbar Epidural Steroid Injection - Parth completed PERI CANTOR MD [address] [place] [address], [phone], [facility] 01/28/2023 14:14:59 09/10/19 23 Cervical MBB 2 level - Parth completed PERI CANTOR MD [address] [place] [address], [phone], [facility] 09/09/2022 16:11:18 08/16/19 23 Cervical MBB 2 level - Parth completed PERI CANTOR MD [address] [place], [address], [facility] 08/15/2022 15:23:46 05/04/19 23 Back Surgery completed Alana Streeter [facility] 07/16/2022 08:57:41 04/30/19 18 Shave Lesion; trunk, arm, leg completed MARIA DEL ROSARIO ODOM MD [address] [place] [address], [phone], [facility] 04/30/2017 22:32:02 04/30/19 18 Destruction BN Lesions completed Aylin Toussaint [facility] 04/29/2017 08:43:13 Orthopedic Surgery completed Balta Pérez [facility] 11/03/2016 13:55:36 Imaging Results Imaging Date Name Status LastModified by Organiz ation Details LastModified Time 01/15/2023 MRI, lumbar spine, w/wo contrast completed [email or web address] [place] [address], [phone], 01/23/2023 16:11:40 12/15/2023 MRI, cervical spine, w/o contrast completed [address], [address], 01/27/2024 16:57:41 12/15/2023 MRI, lumbar spine, w/o contrast completed [address], [address], 01/04/2024 08:05:34 12/15/2023 CT, lumbar spine, w/o contrast completed [address], [address], 01/04/2024 08:05:33 Procedure Notes None recorded. Medical Equipment None Reported. Allergies Allergen ID Allergen Name Allergen Category Reaction Reaction Severity Criticality Documentation Date Start Date Code Code System Note Provider Name and Address Organization Details Recorded Time 271000 lisinopri l medicatio n facial swelling Not available Not available 07/16/2022 94616 RxNorm Alana Streeter [facility] 3 08:45:16 Medications Name Sig Start Date Stop [...] Not Available Not Available Not Available Vitals Date Recorded Body height Body mass index (BMI) Body weight Body temperature Oxygen saturation Oxygen saturation in Arterial blood by Pulse oximetry Heart rate Systolic blood pressure Diastolic blood pressure Provider Name and Address Organization Details Last Updated DateTime 3 185.42 cm 33 kg/m2 404969. 09 g 97.5 [degF] 95 % 95 % 74 /min 120 mm[Hg] 84 mm[Hg] Bronson Rodriguez [facility] 3 13:39:07 Date Recorded Body height Body mass index (BMI) Body weight Provider Name and Address Organization Details Last Updated DateTime 05/11/2023 185.42 cm 32.3 kg/m2 885647.13 g Lissett Vaca [facility] 05/11/2023 12:12:05 Date Recorded Body height Body mass index (BMI) Body weight Systolic blood pressure Diastolic blood pressure Provider Name and Address Organization Details Last Updated DateTime 11/23/2023 185.42 cm 32.3 kg/m2 201086.1 3 g 120 mm[Hg] 82 mm[Hg] Dalila Lozada [facility] 09:06:44 Social History Question Answer Notes LastModified by Organizat ion Details LastModified Time Tobacco Smoking Status Current Some Day [facility]/2016 13:55:22 How Much Tobacco Do You Chew? None [email or web address] Information not available 07/30/2020 Marital Status [email or web address] Informatio n not available 07/30/2020 What Was The Date Of Your Most Recent Tobacco Screening? 12/07/2017 Information n ot available 04/05/2019 How Much Tobacco Do You Smoke? No [email or web address] Information not available 07/16/2022 Sex: Male Functional Status Question Answer Note LastModified by Organizat ion Details LastModified Time Do you or have you ever used any other forms of tobacco or nicotine? No [email or web address] Information not available 07/16/2022 What is your level of alcohol consumption? Occasional [email or web address] Information not available 07/30/2020 Are you currently employed? No Information not available 07/16/2022 Do you or have you ever used e-cigarettes or vape? Never used electronic cigarettes [email or web address] Information not available 07/30/2020 What is your exercise level? Heavy [email or web address] Information not available 07/16/2022 Mental Status None recorded. Family History Relationship Description Onset Age of this Age Resolved Age Notes LastModified by Organization Details LastModified Time Father Heart disease [email or web address] Not available 07/16 08:46:24 Brother Heart disease [email or web address] Not available 07/16 08:46:24 Paternal Grandfather Heart disease [email or web address] Not available 07/16 08:46:35 Medical History Condition [...] N Immune System Disorder N Heart Attack (OK) Y Other Skin Condition N Mental Illness [...] SNOMED-CT Code Diagnosis ICD10 Code Diagnosis Note [id number] BENJAMIN PENDLETON MD [facility] [address] [place] [address] 11/03/2016 13:45:25 11/03/2016 16:50:35 Knee pain 50485622 M25.562 Mr Thomas has a fmeniscus root tear and early medial compartmen t overload. I recommend restricted weight bearing and a course of NSAIDs. [id number] BENJAMIN PENDLETON MD [facility] [address] [place] [address] 11/17/2016 09:18:10 12/15/2016 07:32:42 Knee pain 17634747 M25.562 Mr Thomas has a meniscus root tear and early medial compartmen t overload. I recommend restricted weight bearing, weight loss and wean from diclofenac . 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 I recommend activity modificati on and an exercise program. [id number] VLAD LEPE MD [facility] [address] [place] [address] 07/30/2020 10:31:55 07/30/2020 11:24:51 Ureteric stone 64525362 N20.[address] scan with the findings as above. Plan as above. [id number] AREN BARFIELD MD [facility] [address] 0 05/19/2022 09:50:13 06/03/2022 04:46:23 [id number] AREN BARFIELD MD SURGERY SCHEDULE [address] [place] [address] 05/23/2022 09:05:55 05/23/2022 10:51:10 [id number] AREN BARFIELD MD [facility] [address] [place] [address] 06/09/2022 08:55:00 06/10/2022 04:47:18 Postoperative care 168274171 Z48.89 [id number] PERI CANTOR MD PAIN MEDICINE [address] [place] [address] 07/16/2022 08:33:20 07/16/2022 16:07:09 Displacement of cervical intervertebral disc without myelopathy 52229144 M50.20 Degenerati on of cervical intervertebral disc 60962140 M50.30 Cervical spondylosis 387 482267 M47.812 [id number] ANY KILPATRICK PA-C [facility] [address] [place] [address] 09/25/2022 13:04:15 09/26/2022 04:37:05 Postoperative care 638149334 Z48.89 [id number] PERI CANTOR MD [facility] [address] [facility] PROFESSIO NAL CHARGES [address] [place] [address] [address] [place] [address] 1 08/15/2022 13:40:34 08/15/2022 15:57:04 Cervical spondylosis 929110196 M47.812 [id number] PERI CANTOR MD [facility] PROFESSIO NAL CHARGES [address] [place] [address] [address] [place] [address] 09/09/2022 14:42:39 09/09/2022 16:28:31 Cervical spondylosis 878565477 M47.812 [id number] SUMMER GONZALEZ, ENVIRONMENTAL ASSISTANT [facility] [address] [facility] [place] [address] 0 12/18/2022 12:45:42 12/19/2022 04:41:53 Lumbar radiculopathy 852394683 M54.16 Lumbar spondylosis 94306 0009 M47.896 History of lumbar fusion 8963202241 9106 Z98.1 [id number] PERI CANTOR MD PAIN MEDICINE [address] [place] [address] 1 01/28/2023 13:19:54 01/28/2023 16:07:52 Degeneration of lumbar intervertebral disc 24008762 M51.36 Lumbar radiculopathy 128 614398 M54.16 [id number] PERI CANTOR MD [facility] [address] [facility] [address] PROFESSIO NAL CHARGES [address] [place] [address] [address] [place] [address] 1 01/28/2023 14:06:41 01/28/2023 14:29:56 Lumbar radiculopathy 665454643 M54.16 [id number] MD [facility] [address] 0 05/11/2023 11:50:55 05/11/2023 13:08:17 Urolithiasis 05935234 N20.9 Plan as above will arrange for bilateral ureterosco py and laser of stones possible stent placement [id number] AREN BARFIELD MD SURGERY SCHEDULE [address] [place] [address] 06/16/2023 08:07:40 06/18/2023 09:19:49 [id number] LUCHO ANN PA-C [facility] [address] [facility] [address] [place] [address] 11/23/2023 09:02:39 11/24/2023 04:46:06 Lumbar radiculopathy 198767880 M54.16 Cervical radiculopathy 18536077 M54.12 Low back pain 698425230 M54.50 [id number] DUGLAS BASURTO MD [facility] [address] [place] [address] 04/11/2024 13:49:58 04/11/2024 16:09:51 Solar lentigo 55100744 L81.4 Benign Reassuranc eRecommend ed sun protective clothing and a mineral based sunscreen 30 SPF or higher lotion OTC daily Raised ebenezer orrheic keratosis 1735308476 28739 L82.1 Benign Reassuranc e Hemangioma 159004290 D18 .00 Benign Reassuranc e Multiple b enign melanocytic nevi 763173018 D22.9 Benign Reassuranc e History of squamous cell carcinoma of skin 736450916 Z85.828 [facility] scar History of Malignant melanoma 755803402 Z85.89 [facility] d scar Actinic keratosis 124467 007 L57.0 Education then treated with LN; pt tolerated well advised pt what to expect with freezing Cyst of skin 415057795 L 72.9 Injected with kenalog 2mg/cc, total of 0.1cc injectedND C#: [id number] #:[id number] xp: 05/2025 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 15860734 D48.5 A.) Right proximal thigh r/o lentigo vs lentigo malignaB.) Right distal thigh r/o lentigo vs lentigo malignasha ve biopsy performeds ent for pathsee procedure notewound care instructio ns providedpa tient consents for procedure and photo monitoring Health Concerns Section Related Observation LastModified by Organization Detai ls LastModified Time None Recorded Concern Status LastModified by Organization Details LastModified Time None Recorded Advance Directives Directive None Recorded Payers Insurance Date Sequence Insurance Name Policy Number Policy Huang Covered Member ID Huang Member ID Guarantor Name 05/19/2022 1 [place] Tay Thomas [id number] Tay Thomas 05/19/2022 1 [place] [id number] Tay Thomas [id number] Tay Thomas 07/30/2020 1 [place] [id number] Kelsie Thomas [id number] Tay Thomas 05/19/2022 1 [place] [id number] Tay Thomas [id number] Tay Thomas 06/06/2024 1 [place] Tay Thomas [id number] Tay Thomas 06/15/2024 2 [employer] OPTIONS (MEDICARE SUPPLEMENT) Tay Thomas [id number] Tay Thomas Notes Date Note Type Note Provider Name and Address Organization Details Recorded Time 01/28/2023 text/html Pain Management L-spine GISHReported bypatient.Location:LB P; right buttock pain; right hip pain Quality:throbbing;num bness;aching Severity:current pain level 5/10; worst pain 10/10;worsening;inter ference with sleep Duration:constant Onset/Timin.5 months Context:cannot identify Alleviating Factors:standing Aggravating Factors:lying down Associated Symptoms:no bladder compromise; no bowel compromise;weakness;n umbness ADL (Activities of Daily Living):do not improve with medication Prior Imaging:MRI (01/15/23) Prior EMG:none Previous Surgery:date: (05/01/22 @[facility] by Dr. Barfield); fusion Previous Injections:JOSE (10/2021 @[facility] Dr. Day); helped temporarily Previous PT:none Previous Profiler Hand:none PERI CANTOR MD [address] [place] [address], [phone], [facility] 01/28/2023 13:59:51 05/11/2023 text/html Patient is here last seen 3 years ago following urolithiasis. Over the weekend he had acute onset of left flank pain. He was found to have a 5 mm stone at the left ureterovesical junction. CT scan was at [facility] emergency room. Additionally had a 10 mm stone in his left kidney and additional smaller stones. On the right he had a 7 mm renal stone nonobstructing. We discussed proceeding with ureteroscopic intervention. We discussed the possibility of perioperative ureteral stent placement. He understands wished to proceed to soon as possible. VLAD LEPE MD [address] [place], [address], [facility] 05/11/2023 13:14:06 11/23/2023 text/html Tay Thomas is a 68-year-old presenting to the clinic for his first follow-up status post right L5-S1 MIS hemilaminectomy on 06/09/[address] Barfield. Patient is status post L4-5 PLIF on 05/03/[address] Barfield. Since his surgery, patient noted improvement to right low back pain with radiation to anterior lateral thigh in addition to symptom of right lower extremity giving out. Although patient reported relief, patient notes his symptoms have returned to full intensity within the last few months. Patient denies numbness or paresthesia along the same distribution. Patient has been taking Lortab at night, diclofenac and gabapentin 300 mg 3 times daily. Patient additionally received Medrol Dosepak. Patient notes significant improvement with gabapentin, though his pain still persists. Patient notes he might of felt a pop to his low back with symptom onset. Patient additionally reports new onset left-sided neck pain with radiation to the left side of his face as well as numbness to lateral aspect of left upper extremity with termination of the elbow. Patient denies radicular pain or paresthesia. Patient denies changes to hand dexterity. Patient denies history of this pain prior to his surgery. Patient was seen by both Dr. Barfield and I in clinic today. LUCHO ANN PA-C [address] [place], [address], [facility] 11/23/2023 09:43:39 04/11/2024 text/html New patient- {{S elf referred* Referred by: LUCAS in}} LUCAS with Dr. Maharaj 68 y/o presents to clinic today for full body check. Skin lesion on left wrist and PERICO lower legs. 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 Feels well today. {{Denies Positive*}} family history of malignant melanoma. DUGLAS BASURTO MD [address] [place] [address], [address], [facility] 04/11/2024 18:33:13
[2024-06-28] MEDS: DAPTOmycin 750 MG in 0.9 % SODIUM CHLORIDE 50 ML 100 MG IV (11:30)
[2024-06-28 12:15] VITALS: BP 128/82; PULSE 67; RESP 18; TEMP 36.7; O2SAT 99
[2024-06-28] MEDS: SODIUM CHLORIDE 0.9% 50ML BAG 50 ML IV (13:53)
[2024-06-28] MEDS: SODIUM CHLORIDE 0.9% 10ML FLUSH SYRINGE 10 ML IV (13:54)
== END 2024-06-28 12:20 | disposition home or self-care (01) ==
LOC: INF 11:15
PROVIDERS: PCP Nurse Practitioner Family; Visit Provider Nurse Practitioner Family
DX: N20.0 Calculus of kidney (principal)
CPT/HCPCS: 96365; J0878

== ENCOUNTER 2024-06-29 11:09 | Outpatient (CLI) | payer MEDICARE, SELFPAY ==
[2024-06-29] MEDS: SODIUM CHLORIDE 0.9% 50ML BAG 50 ML IV (11:38)
[2024-06-29 12:00] VITALS: BP 104/69; PULSE 63; RESP 17; O2SAT 100
[2024-06-29] MEDS: DAPTOmycin 750 MG in 0.9 % SODIUM CHLORIDE 50 ML 100 MG IV (12:00)
[2024-06-29 12:48] VITALS: BP 145/80; PULSE 60; RESP 16
== END 2024-06-29 12:53 | disposition home or self-care (01) ==
LOC: INF 11:10
PROVIDERS: PCP Nurse Practitioner Family; Visit Provider Nurse Practitioner Family
DX: N20.0 Calculus of kidney (principal)
CPT/HCPCS: 96365; J0878

== ENCOUNTER 2024-06-30 11:01 | Outpatient (CLI) | payer MEDICARE, SELFPAY ==
--- OUTSIDE RECORDS SUMMARY | 2024-06-30 11:04 | XMS_ITS | Data Portability ---
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 Procedures epidural steroid injection , lumbar interlami kelley (PROC) 2022 023 [email or web address] [facility] Professional Charges, [address] [facility], [place], [address], 01/28/2023 14:13:10 Surgeries None recorded. Imaging MRI, cervical spine, w/o contrast 2023 [facility], [address] [facility], [place], [address], 12/15/2023 17:11:59 Medication Orders diclofena c sodium 75 mg tablet,de layed release 2023 [facility], [address] [place] [address], [id number], 11/23/2023 09:45:15 hydromorp citlali 4 mg tablet 2023 [facility], [address] [place] [address], [id number], 05/11/2023 13:14:01 Patient TargetsNo targets recorded. Patient Instructions Encounter Date Encounter Id Patient Instructions Last Modified By Organization Details Last Modified Time 04/11/2024 [id number] - Benign moles and keratoses seen on [...] Analyte Clean Catch Not Available [facility] [address], [place], [address], 05/11/2023 12:21:10 05/11/1905/11/2023 urina lysis panel , auto Unknown Analyte Yellow Not Available [facility] [address], [place], [address], 05/11/2023 12:21:10 05/11/19 24 05/11/2023 urina lysis panel , auto Unknown Analyte Clear Not Available [facility] [address], [place], [address], 05/11/2023 12:21:10 05/11/19 24 05/11/2023 urina lysis panel , auto Unknown Analyte 1.015 Not Available [facility] [address], [place], [address], 05/11/2023 12:21:10 05/11/19 24 05/11/2023 urina lysis panel , auto Unknown Analyte 1.003- 1.035 Not Available [facility] [address], [place], [address], 05/11/2023 12:21:10 05/11/19 24 05/11/2023 urina lysis panel , auto Unknown Analyte 5.0 Not Available [facility] [address], [place], [address], 05/11/2023 12:21:10 05/11/19 24 05/11/2023 urina lysis panel , auto Unknown Analyte 5.0-8. 0 Not Available [facility] [address], [place], [address], 05/11/2023 12:21:10 05/11/19 24 05/11/2023 urina lysis panel , auto Unknown Analyte 25 Elvia/ul Trace Not Available [facility] [address], [place], [address], 05/11/2023 12:21:10 05/11/19 24 05/11/2023 urina lysis panel , auto Unknown Analyte Negati ve Not Available [facility] [address], [place], [address], 05/11/2023 12:21:10 05/11/19 24 05/11/2023 urina lysis panel , auto Unknown Analyte Negati ve Not Available [facility] [address], [place], [address], 05/11/2023 12:21:10 05/11/19 24 05/11/2023 urina lysis panel , auto Unknown Analyte Negati ve Not Available [facility] [address], [place], [address], 05/11/2023 12:21:10 05/11/19 24 05/11/2023 urina lysis panel , auto Unknown Analyte Negati ve Not Available [facility] [address] [place] [address] [address], [place], [address], 05/11/2023 12:21:10 05/11/19 24 05/11/2023 urina lysis panel , auto Unknown Analyte Negati ve Not Available [facility] [address], [place], [address], 05/11/2023 12:21:10 05/11/19 24 05/11/2023 urina lysis panel , auto Unknown Analyte Normal Not Available [facility] [address], [place], [address], 05/11/2023 12:21:10 05/11/19 24 05/11/2023 urina lysis panel , auto Unknown Analyte Normal Not Available [facility] [address], [place], [address], 05/11/2023 12:21:10 05/11/19 24 05/11/2023 urina lysis panel , auto Unknown Analyte 15 mg/dl (Sm) Not Available [facility] [address], [place], [address], 05/11/2023 12:21:10 05/11/19 24 05/11/2023 urina lysis panel , auto Unknown Analyte Negati ve Not Available [facility] [address], [place], [address], 05/11/2023 12:21:10 05/11/19 24 05/11/2023 urina lysis panel , auto Unknown Analyte 1 mg/dl Not Available [facility] [address], [place], [address], 05/11/2023 12:21:10 05/11/19 24 05/11/2023 urina lysis panel , auto Unknown Analyte Normal 1 mg/dl Not Available [facility] [address], [place], [address], 05/11/2023 12:21:10 05/11/19 24 05/11/2023 urina lysis panel , auto Unknown Analyte Negati ve Not Available [facility] [address], [place], [address], 05/11/2023 12:21:10 05/11/19 24 05/11/2023 urina lysis panel , auto Unknown Analyte Negati ve Not Available [facility] [address] [facility] [address], [place], [address], 05/11/2023 12:21:10 05/11/19 24 05/11/2023 urina lysis panel , auto Unknown Analyte 250 Sera/ul Not Available [facility] [address] [facility] [address], [place], [address], 05/11/2023 12:21:10 05/11/19 24 05/11/2023 urina lysis panel , auto Unknown Analyte Negati ve Not Available [facility] [address] [facility] [address], [place], [address], 05/11/2023 12:21:10 04/11/19 25 04/11/2024 SURGI LORETO [...] one casse tte label ed A1. B) Demlis valentino's name and date of verif ied. [...] 17:44 Page 1 of 1 Not Available [facility] [address] [place] [address], [address], 04/12/2024 17:44:22 01/16/20 23 01/15/2023 MRI, lumba r spine , w/wo contr ast [facility] [address] [place] [address], [place] [address] Patien t Name: TAY Duarte t : [...] status post discec vivi, interb finn graft, supervisor abattoir ior fusion and cliff ctomy at L4-L5. There is parama gnetic artifa ct from the pedicl e screws , supervisor abattoir ior fusion hardwa re and interb finn [...] strati on of [address] ([facility] [address]-0 2), there is normal for surgic [...] Taylor alcantara MD on 2022 2:10 PM [email or web address] [facility] [address] [place] [address], [address], 01/23/2023 16:11:40 12/15/19 24 12/15/2023 MRI, cervi loreto spine , w/o contr ast [address] [place] [address] Gerald lozada Name: TAY lozada : 89 [...] listhe sis of C4 on C5 and supervisor abattoir ior listhe sis of C5 on C6. There is no fractu re or pathol ogic intrao sseous lesion . There is severe anteri or margin al osteop hytic spurri ng. No parasp inous soft tissue abnorm ality is identi fied. The visual ized spinal cord and supervisor abattoir ior fossa of the brain are normal [...] Taylor alcantara MD on 2023 5:06 PM [facility] [address] [place] [address], [address], 01/27/2024 16:57:41 12/16/19 24 12/15/2023 MRI, lumba r spine , w/o contr ast [address] [address] Patiryan t Name: TAY lozada : 89 [...] is prior discec vivi, interb finn graft, supervisor abattoir ior fusion and cliff ctomy at L4-L5. There is parama gnetic artifa ct from the pedicl e screws , supervisor abattoir ior fusion hardwa re and interb finn [...] alcantara MD on 2023 7:09 AM [email or web address] [facility] [address], [address], 01/04/2024 08:05:34 12/16/19 24 12/15/2023 CT, lumba r spine , w/o contr ast [address] [address] Patiryan t Name: TAY lozada : 954 Patiryan t [facility] Provid er: NOEL BARFIELD EXAM DATE: [...] is prior discec vivi, interb finn graft, supervisor abattoir ior fusion and cliff ctomy at L4-L5. There is beam harden ing artifa ct from the pedicl e screws , supervisor abattoir ior fusion hardwa re and interb finn spacer . There is no eviden ce of loosen ing of the hardwa re or hardwa re failur e. There is mild levocu rvatur e from L1 throug h L3 and mild dextro curvat ure from L3 throug h L5. There is minima l supervisor abattoir ior listhe sis of L1 on L2 [...] There is bridgi ng bone in the supervisor abattoir ior elemen ts. There is severe left [...] Taylor alcantara MD on 2023 7:[email or web address] [facility] [address], [address], 01/04/2024 08:05:33 Result Notes None recorded. Problems No Known Problems Procedures Surgical History Date Name Laterality Status Provider Name and Address Organization Details Recorded Time 04/11/19 25 Biopsy Skin Lesion; Tangential completed [facility] 04/11/2024 14:41:10 04/11/19 25 Injection, Intralesional completed DUGLAS BASURTO MD [address] [place] [address], [address], [facility] 04/11/2024 18:30:27 04/11/19 25 Destruction Premalignant Lesion(s) completed [facility] 04/11/2024 14:44:27 01/29/20 23 Lumbar Epidural Steroid Injection - Parth completed PERI CANTOR MD [address] [place] [address], [address], [facility] 01/28/2023 14:14:59 09/10/19 23 Cervical MBB 2 level - Parth completed PERI CANTOR MD [address] [place] [address], [address], [facility] 09/09/2022 16:11:18 08/16/19 23 Cervical MBB 2 level - Parth completed PERI CANTOR MD [address] [place], [address], [facility] 08/15/2022 15:23:46 05/04/19 23 Back Surgery completed Alana Streeter [facility] 07/16/2022 08:57:41 04/30/19 18 Shave Lesion; trunk, arm, leg completed MARIA DEL ROSARIO ODOM MD [address] [place] [address], [address], [facility] 04/30/2017 22:32:02 04/30/19 18 Destruction BN Lesions completed Aylin Toussaint [facility] 04/29/2017 08:43:13 Orthopedic Surgery completed Balta Pérez [facility] 11/03/2016 13:55:36 Imaging Results Imaging Date Name Status LastModified by Organiz ation Details LastModified Time 01/15/2023 MRI, lumbar spine, w/wo contrast completed [email or web address] [place] [address], [address], 01/23/2023 16:11:40 12/15/2023 MRI, cervical spine, w/o contrast completed [address], [address], 01/27/2024 16:57:41 12/15/2023 MRI, lumbar spine, w/o contrast completed [address], [address], 01/04/2024 08:05:34 12/15/2023 CT, lumbar spine, w/o contrast completed [address], [address], 01/04/2024 08:05:33 Procedure Notes None recorded. Medical Equipment None Reported. Allergies Allergen ID Allergen Name Allergen Category Reaction Reaction Severity Criticality Documentation Date Start Date Code Code System Note Provider Name and Address Organization Details Recorded Time 026913 lisinopri l medicatio n facial swelling Not available Not available 07/16/2022 74165 RxNorm Alana Streeter [facility] 3 08:45:16 Medications Name Sig Start Date [...] Updated DateTime 3 185.42 cm 33 kg/m2 597760. 09 g 97.5 [degF] 95 % 95 % 74 /min 120 mm[Hg] 84 mm[Hg] Bronson Rodriguez [facility] 3 13:39:07 Date Recorded Body height Body mass index (BMI) Body weight Provider Name and Address Organization Details Last Updated DateTime 05/11/2023 185.42 cm 32.3 kg/m2 877459.13 g Lissett Vaca [facility] 05/11/2023 12:12:05 Date Recorded Body height Body mass index (BMI) Body weight Systolic blood pressure Diastolic blood pressure Provider Name and Address Organization Details Last Updated DateTime 11/23/2023 185.42 cm 32.3 kg/m2 957562.1 3 g 120 mm[Hg] 82 mm[Hg] Dalila Lebronholz [facility] 09:06:44 Social History Question Answer Notes LastModified by Organizat ion Details LastModified Time Tobacco Smoking Status Current Some Day [facility] 11/03/2016 13:55:22 How Much Tobacco Do You Chew? None [email or web address] Information not available 07/30/2020 Marital Status [email or web address] Informatio n not available 07/30/2020 What Was The Date Of Your Most Recent Tobacco Screening? 12/07/2017 Information n ot available 04/05/2019 How Much Tobacco Do You Smoke? No [email or web address] Information not available 07/16/2022 Sex: Male Functional Status Question Answer Note LastModified by Organizat ion Details LastModified Time Do you or have you ever used any other forms of tobacco or nicotine? No Information not available 07/16/2022 What is your level of alcohol consumption? Occasional [email or web address] Information not available 07/30/2020 Are you currently employed? No [email or web address] Information not available 07/16/2022 Do you or have you ever used e-cigarettes or vape? Never used electronic cigarettes [email or web address] Information not available 07/30/2020 What is your exercise level? Heavy [email or web address] Information not available 07/16/2022 Mental Status None recorded. Family History Relationship Description Onset Age of this Age Resolved Age Notes LastModified by Organization Details LastModified Time Father Heart disease [email or web address] Not available 07/16 08:46:24 Brother Heart disease [email or web address] Not available 07/16 08:46:24 Paternal Grandfather Heart disease [email or web address] Not available 07/16 08:46:35 Medical History Condition Response Anxiety/Depression N Other N Gout N Thyroid Disease N Kidney Stones Y Hernia N COPD N Glaucoma N Pneumonia N Anesthesia Complications N Varicose [...] N Immune System Disorder N Heart Attack (SD) Y Other Skin Condition N Mental Illness [...] SNOMED-CT Code Diagnosis ICD10 Code Diagnosis Note [id number] BENJAMIN PENDLETON MD [facility] [address] [place] [address] 11/03/2016 13:45:25 11/03/2016 16:50:35 Knee pain 70150247 M25.562 Mr Thomas has a fmeniscus root tear and early medial compartmen t overload. I recommend restricted weight bearing and a course of NSAIDs. [id number] BENJAMIN PENDLETON MD [facility] [address] [place] [address] 11/17/2016 09:18:10 12/15/2016 07:32:42 Knee pain 61656350 M25.562 Mr Thomas has a meniscus root tear and early medial compartmen t overload. I recommend restricted weight bearing, weight loss and wean from diclofenac . 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 I recommend activity modificati on and an exercise program. [id number] VLAD LEPE MD [facility] [address] [place] [address] 07/30/2020 10:31:55 07/30/2020 11:24:51 Ureteric stone 73956059 N20.[address] scan with the findings as above. Plan as above. [id number] AREN BARFIELD MD [facility] [address] 0 05/19/2022 09:50:13 06/03/2022 04:46:23 [id number] AREN BARFIELD MD SURGERY SCHEDULE [address] [place] [address] 05/23/2022 09:05:55 05/23/2022 10:51:10 [id number] AREN BARFIELD MD [facility] [address] [place] [address] 06/09/2022 08:55:00 06/10/2022 04:47:18 Postoperative care 644109264 Z48.89 [id number] PERI CANTOR MD [facility] [address] [place] [address] 07/16/2022 08:33:20 07/16/2022 16:07:09 Displacement of cervical intervertebral disc without myelopathy 50049815 M50.20 Degenerati on of cervical intervertebral disc 13254868 M50.30 Cervical spondylosis 387 665132 M47.812 [id number] ANY KILPATRICK PA-C [facility] [address] [place] [address] 09/25/2022 13:04:15 09/26/2022 04:37:05 Postoperative care 097677249 Z48.89 [id number] PERI CANTOR MD [facility] PROFESSIO NAL CHARGES [address] [place] [address] [address] [place] [address] 08/15/2022 13:40:34 08/15/2022 15:57:04 Cervical spondylosis 079409830 M47.812 [id number] PERI CANTOR MD [facility] PROFESSIO NAL CHARGES [address] [place] [address] [address] [place] [address] 1 09/09/2022 14:42:39 09/09/2022 16:28:31 Cervical spondylosis 267306583 M47.812 [id number] SUMMER GONZALEZ, LEGAL TRANSCRIPTIONIST [facility] [address] [place] [address] 12/18/2022 12:45:42 12/19/2022 04:41:53 Lumbar radiculopathy 858618863 M54.16 Lumbar spondylosis 24274 0009 M47.896 History of lumbar fusion 6130775882 9106 Z98.1 [id number] PERI CANTOR MD [facility] [address] [place] [address] 1 01/28/2023 13:19:54 01/28/2023 16:07:52 Degeneration of lumbar intervertebral disc 16561281 M51.36 Lumbar radiculopathy 128 075073 M54.16 [id number] PERI CANTOR MD [facility] PROFESSIO NAL CHARGES [address] [place] [address] [address] [place] [address] 1 01/28/2023 14:06:41 01/28/2023 14:29:56 Lumbar radiculopathy 617610087 M54.16 [id number] MD [facility] [address] 0 05/11/2023 11:50:55 05/11/2023 13:08:17 Urolithiasis 64409430 N20.9 Plan as above will arrange for bilateral ureterosco py and laser of stones possible stent placement [id number] AREN BARFIELD MD SURGERY SCHEDULE [address] [place] [address] 06/16/2023 08:07:40 06/18/2023 09:19:49 [id number] LUCHO ANN PA-C [facility] [address] [facility] [address] [facility] [address] [address] [place] [address] 11/23/2023 09:02:39 11/24/2023 04:46:06 Lumbar radiculopathy 036227599 M54.16 Cervical radiculopathy 61377685 M54.12 Low back pain 275395324 M54.50 [id number] DUGLAS BASURTO MD [address] [place] [address] 04/11/2024 13:49:58 04/11/2024 16:09:51 Solar lentigo 64761985 L81.4 Benign Reassuranc eRecommend ed sun protective clothing and a mineral based sunscreen 30 SPF or higher lotion OTC daily Raised ebenezer orrheic keratosis 5731021423 52126 L82.1 Benign Reassuranc e Hemangioma 876362019 D18 .00 Benign Reassuranc e Multiple b enign melanocytic nevi 595972615 D22.9 Benign Reassuranc e History of squamous cell carcinoma of skin 751173643 Z85.828 Well-heale d scar History of Malignant melanoma 332610529 Z85.89 Well-heale d scar Actinic keratosis 227065 007 L57.0 Education then treated with LN; pt tolerated well advised pt what to expect with freezing Cyst of skin 495613166 L 72.9 Injected with kenalog 2mg/cc, total of 0.1cc injectedND C#: [id number] #:[id number] xp: 05/2025 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 35707010 D48.5 A.) Right proximal thigh r/o lentigo [...] Name 05/19/2022 1 [place] Tay Thomas [id number] Tay Thomas 05/19/2022 1 [place] [id number] Tay Thomas [id number] Tay Thomas 07/30/2020 1 [place] [id number] Kelsie Thomas [id number] Tay Thomas 05/19/2022 1 [place] [id number] Tay Thomas [id number] Tay Thomas 06/06/2024 1 [place] Tay Thomas [id number] Tay Thomas 06/15/2024 2 [employer] OPTIONS (MEDICARE SUPPLEMENT) Tay Thomas [id number] Tay Thomas Notes Date Note Type Note [...] by Dr. Barfield); fusion Previous Injections:JOSE (10/2021 @[facility] Dr. Day); helped temporarily Previous PT:none Previous Forensic Identification Specialist:none PERI CANTOR MD [address] [place] [address], [address], [facility] 01/28/2023 13:59:51 05/11/2023 text/html Patient is here last seen 3 years ago following urolithiasis. Over the weekend he had acute onset of left flank pain. He was found to have a 5 mm stone at the left ureterovesical junction. CT scan was at [facility] emergency room. Additionally had a 10 mm stone in his left kidney and additional smaller stones. On the right he had a 7 mm renal stone nonobstructing. We discussed proceeding with ureteroscopic intervention. We discussed the possibility of perioperative ureteral stent placement. He understands wished to proceed to soon as possible. VLAD LEPE MD [address] [place], [address], [facility] 05/11/2023 13:14:06 11/23/2023 text/html Tay Thomas is [...] in clinic today. LUCHO ANN PA-C [address] [place], [address], [facility] 11/23/2023 09:43:39 04/11/2024 text/html New patient- {{S [...] history of malignant melanoma. DUGLAS BASURTO MD [address] [place] [address], [address], [facility] 04/11/2024 18:33:13
[2024-06-30] MEDS: SODIUM CHLORIDE 0.9% 50ML BAG 50 ML IV (11:09)
[2024-06-30] MEDS: SODIUM CHLORIDE 0.9% 10ML FLUSH SYRINGE 10 ML IV (11:09)
[2024-06-30] MEDS: DAPTOmycin 750 MG in 0.9 % SODIUM CHLORIDE 50 ML 100 MG IV (11:09)
[2024-06-30 11:19] VITALS: BP 123/81; PULSE 69; RESP 20; TEMP 36.6; O2SAT 98
[2024-06-30 11:55] VITALS: BP 132/89; PULSE 59; RESP 20; O2SAT 98
== END 2024-06-30 12:00 | disposition home or self-care (01) ==
LOC: INF 11:02
PROVIDERS: PCP Nurse Practitioner Family; Visit Provider Nurse Practitioner Family
DX: N20.0 Calculus of kidney (principal)
CPT/HCPCS: 96365; J0878

== ENCOUNTER 2024-07-01 11:04 | Outpatient (CLI) | payer MEDICARE, SELFPAY ==
--- OUTSIDE RECORDS SUMMARY | 2024-07-01 11:07 | XMS_ITS | Data Portability ---
Author Organization JEN - Esther aparicio, KHUSHIS STONY BROOK CLOSED Address [address] [facility] [address] [address] [place] [address] Care Team Providers Care Human Resources Department Supervisor Name Role Phone DESIREE LEE Primary Care Provider [phone] Assessment Encounter Date Assessment Date Assessment LastModified [...] available Lab surgical pathology study 2024 025 [facility], [address] [place], [address], 04/12/2024 17:44:22 urinalysi s panel, auto 2023 024 [email or web address] [facility], [address], [place], [address], 05/11/2023 13:13:00 Referral None recorded. Procedures epidural steroid injection , lumbar interlami kelley (PROC) 2022 023 [email or web address] [facility] Professional Charges, [address] [facility], [address], [place], [address], 01/28/2023 14:13:10 Surgeries None recorded. Imaging MRI, cervical spine, w/o contrast 2023 [facility] Radiology [facility], [address] [facility], [place], [address], 12/15/2023 17:11:59 Medication Orders diclofena c sodium 75 mg tablet,de layed release 2023 [facility], [address] [place] [address], [id number], 11/23/2023 09:45:15 hydromorp citlali 4 mg tablet 2023 [facility], [address] [place] [address], [id number], 05/11/2023 13:14:01 Patient TargetsNo targets recorded. Patient Instructions Encounter Date Encounter Id Patient Instructions Last Modified By Organization Details Last Modified Time 04/11/2024 [id number] - Benign moles and keratoses seen on [...] Analyte Clean Catch Not Available [facility] [address], [place], [address], 05/11/2023 12:21:10 05/11/1905/11/2023 urina lysis panel , auto Unknown Analyte Yellow Not Available [facility] [address], [place], [address], 05/11/2023 12:21:10 05/11/19 24 05/11/2023 urina lysis panel , auto Unknown Analyte Clear Not Available [facility] [address], [place], [address], 05/11/2023 12:21:10 05/11/19 24 05/11/2023 urina lysis panel , auto Unknown Analyte 1.015 Not Available [facility] [address], [place], [address], 05/11/2023 12:21:10 05/11/19 24 05/11/2023 urina lysis panel , auto Unknown Analyte 1.003- 1.035 Not Available [facility] [address], [place], [address], 05/11/2023 12:21:10 05/11/19 24 05/11/2023 urina lysis panel , auto Unknown Analyte 5.0 Not Available [facility] [address], [place], [address], 05/11/2023 12:21:10 05/11/19 24 05/11/2023 urina lysis panel , auto Unknown Analyte 5.0-8. 0 Not Available [facility] [address], [place], [address], 05/11/2023 12:21:10 05/11/19 24 05/11/2023 urina lysis panel , auto Unknown Analyte 25 Elvia/ul Trace Not Available [facility] [address], [place], [address], 05/11/2023 12:21:10 05/11/19 24 05/11/2023 urina lysis panel , auto Unknown Analyte Negati ve Not Available [facility] [address], [place], [address], 05/11/2023 12:21:10 05/11/19 24 05/11/2023 urina lysis panel , auto Unknown Analyte Negati ve Not Available [facility] [address], [place], [address], 05/11/2023 12:21:10 05/11/19 24 05/11/2023 urina lysis panel , auto Unknown Analyte Negati ve Not Available [facility] [address], [place], [address], 05/11/2023 12:21:10 05/11/19 24 05/11/2023 urina lysis panel , auto Unknown Analyte Negati ve Not Available [facility] [address] [place] [address] [address], [place], [address], 05/11/2023 12:21:10 05/11/19 24 05/11/2023 urina lysis panel , auto Unknown Analyte Negati ve Not Available [facility] [address], [place], [address], 05/11/2023 12:21:10 05/11/19 24 05/11/2023 urina lysis panel , auto Unknown Analyte Normal Not Available [facility] [address], [place], [address], 05/11/2023 12:21:10 05/11/19 24 05/11/2023 urina lysis panel , auto Unknown Analyte Normal Not Available [facility] [address], [place], [address], 05/11/2023 12:21:10 05/11/19 24 05/11/2023 urina lysis panel , auto Unknown Analyte 15 mg/dl (Sm) Not Available [facility] [address], [place], [address], 05/11/2023 12:21:10 05/11/19 24 05/11/2023 urina lysis panel , auto Unknown Analyte Negati ve Not Available [facility] [address], [place], [address], 05/11/2023 12:21:10 05/11/19 24 05/11/2023 urina lysis panel , auto Unknown Analyte 1 mg/dl Not Available [facility] [address], [place], [address], 05/11/2023 12:21:10 05/11/19 24 05/11/2023 urina lysis panel , auto Unknown Analyte Normal 1 mg/dl Not Available [facility] [address], [place], [address], 05/11/2023 12:21:10 05/11/19 24 05/11/2023 urina lysis panel , auto Unknown Analyte Negati ve Not Available [facility] [address], [place], [address], 05/11/2023 12:21:10 05/11/19 24 05/11/2023 urina lysis panel , auto Unknown Analyte Negati ve Not Available [facility] [address] [facility] [address], [place], [address], 05/11/2023 12:21:10 05/11/19 24 05/11/2023 urina lysis panel , auto Unknown Analyte 250 Sera/ul Not Available [facility] [address] [facility] [address], [place], [address], 05/11/2023 12:21:10 05/11/19 24 05/11/2023 urina lysis panel , auto Unknown Analyte Negati ve Not Available [facility] [address] [facility] [address], [place], [address], 05/11/2023 12:21:10 04/11/19 25 04/11/2024 SURGI LORETO [...] 17:44 Page 1 of 1 Not Available [facility] [address] [place] [address], [address], 04/12/2024 17:44:22 01/16/20 23 01/15/2023 MRI, lumba r spine , w/wo contr ast [facility] [address] [place] [address], [place] [address] Patien t Name: TAY Duarte t : [...] status post discec vivi, interb finn graft, hand stone polisher ior fusion and cliff ctomy at L4-L5. There is parama gnetic artifa ct from the pedicl e screws , hand stone polisher ior fusion hardwa re and interb finn [...] strati on of [address] ([facility] [address]-0 2), there is normal for surgic [...] Taylor alcantara MD on 2022 2:10 PM [email or web address] [facility] Radiology [facility] [address] [place] [address], [address], 01/23/2023 16:11:40 12/15/19 24 12/15/2023 MRI, cervi loreto spine , w/o contr ast [address] [place] [address] Gerald lozada Name: TAY lozada : 89 [...] listhe sis of C4 on C5 and hand stone polisher ior listhe sis of C5 on C6. There is no fractu re or pathol ogic intrao sseous lesion . There is severe anteri or margin al osteop hytic spurri ng. No parasp inous soft tissue abnorm ality is identi fied. The visual ized spinal cord and hand stone polisher ior fossa of the brain are normal [...] Taylor alcantara MD on 2023 5:06 PM [facility]iology [facility] [address] [place] [address], [address], 01/27/2024 16:57:41 12/16/19 24 12/15/2023 MRI, lumba r spine , w/o contr ast [address] [address] Patiryan t Name: TAY lozada : 89 [...] is prior discec vivi, interb finn graft, hand stone polisher ior fusion and cliff ctomy at L4-L5. There is parama gnetic artifa ct from the pedicl e screws , hand stone polisher ior fusion hardwa re and interb finn [...] alcantara MD on 2023 7:09 AM [email or web address] [facility] [address], [address], 01/04/2024 08:05:34 12/16/19 24 12/15/2023 CT, lumba r spine , w/o contr ast [address] [address] Patiryan t Name: TAY lozada : 952 [facility]iryan t [facility]: NOEL BARFIELD EXAM [...] is prior discec vivi, interb finn graft, hand stone polisher ior fusion and cliff ctomy at L4-L5. There is beam harden ing artifa ct from the pedicl e screws , hand stone polisher ior fusion hardwa re and interb finn spacer . There is no eviden ce of loosen ing of the hardwa re or hardwa re failur e. There is mild levocu rvatur e from L1 throug h L3 and mild dextro curvat ure from L3 throug h L5. There is minima l hand stone polisher ior listhe sis of L1 on L2 [...] There is bridgi ng bone in the hand stone polisher ior elemen ts. There is severe left [...] Taylor alcantara MD on 2023 7:[email or web address] [facility] [address], [address], 01/04/2024 08:05:33 Result Notes None recorded. Problems No Known Problems Procedures Surgical History Date Name Laterality Status Provider Name and Address Organization Details Recorded Time 04/11/19 25 Biopsy Skin Lesion; Tangential completed [facility] 04/11/2024 14:41:10 04/11/19 25 Injection, Intralesional completed DUGLAS BASURTO MD [address] [place] [address], [address], [facility] 04/11/2024 18:30:27 04/11/19 25 Destruction Premalignant Lesion(s) completed [facility] 04/11/2024 14:44:27 01/29/20 23 Lumbar Epidural Steroid Injection - Parth completed PERI CANTOR MD [address] [place] [address], [address], [facility] 01/28/2023 14:14:59 09/10/19 23 Cervical MBB 2 level - Parth completed PERI CANTOR MD [address] [place] [address], [address], [facility] 09/09/2022 16:11:18 08/16/19 23 Cervical MBB 2 level - Parth completed PERI CANTOR MD [address] [place], [address], [facility] 08/15/2022 15:23:46 05/04/19 23 Back Surgery completed Alana Streeter [facility] 07/16/2022 08:57:41 04/30/19 18 Shave Lesion; trunk, arm, leg completed MARIA DEL ROSARIO ODOM MD [address] [place] [address], [address], [facility] 04/30/2017 22:32:02 04/30/19 18 Destruction BN Lesions completed Aylin Toussaint [facility] 04/29/2017 08:43:13 Orthopedic Surgery completed Balta Pérez [facility] 11/03/2016 13:55:36 Imaging Results Imaging Date Name Status LastModified by Organiz ation Details LastModified Time 01/15/2023 MRI, lumbar spine, w/wo contrast completed [email or web address] [place] [address], [address], 01/23/2023 16:11:40 12/15/2023 MRI, cervical spine, w/o contrast completed [address], [address], 01/27/2024 16:57:41 12/15/2023 MRI, lumbar spine, w/o contrast completed [address], [address], 01/04/2024 08:05:34 12/15/2023 CT, lumbar spine, w/o contrast completed [address], [address], 01/04/2024 08:05:33 Procedure Notes None recorded. Medical Equipment None Reported. Allergies Allergen ID Allergen Name Allergen Category Reaction Reaction Severity Criticality Documentation Date Start Date Code Code System Note Provider Name and Address Organization Details Recorded Time 084242 lisinopri l medicatio n facial swelling Not available Not available 07/16/2022 34513 RxNorm Alana Streeter [facility] 3 08:45:16 Medications Name Sig Start [...] Updated DateTime 3 185.42 cm 33 kg/m2 220619. 09 g 97.5 [degF] 95 % 95 % 74 /min 120 mm[Hg] 84 mm[Hg] Bronson Rodriguez [facility] 3 13:39:07 Date Recorded Body height Body mass index (BMI) Body weight Provider Name and Address Organization Details Last Updated DateTime 05/11/2023 185.42 cm 32.3 kg/m2 360098.13 g Lissett Vaca [facility] 05/11/2023 12:12:05 Date Recorded Body height Body mass index (BMI) Body weight Systolic blood pressure Diastolic blood pressure Provider Name and Address Organization Details Last Updated DateTime 11/23/2023 185.42 cm 32.3 kg/m2 868138.1 3 g 120 mm[Hg] 82 mm[Hg] Dalila Lebronholz [facility] 09:06:44 Social History Question Answer Notes LastModified by Organizat ion Details LastModified Time Tobacco Smoking Status Current Some Day [facility] 11/03/2016 13:55:22 How Much Tobacco Do You Chew? None [email or web address] Information not available 07/30/2020 Marital Status Informatio n not available 07/30/2020 What Was The Date Of Your Most Recent Tobacco Screening? 12/07/2017 Information n ot available 04/05/2019 How Much Tobacco Do You Smoke? No [email or web address] Information not available 07/16/2022 Sex: Male Functional Status Question Answer Note LastModified by Organizat ion Details LastModified Time Do you or have you ever used any other forms of tobacco or nicotine? No Information not available 07/16/2022 What is your level of alcohol consumption? Occasional [email or web address] Information not available 07/30/2020 Are you currently employed? No [email or web address] Information not available 07/16/2022 Do you or have you ever used e-cigarettes or vape? Never used electronic cigarettes [email or web address] Information not available 07/30/2020 What is your exercise level? Heavy [email or web address] Information not available 07/16/2022 Mental Status None recorded. Family History Relationship Description Onset Age of this Age Resolved Age Notes LastModified by Organization Details LastModified Time Father Heart disease [email or web address] Not available 07/16 08:46:24 Brother Heart disease Not available 07/16 08:46:24 Paternal Grandfather Heart disease [email or web address] Not available 07/16 08:46:35 Medical History Condition Response Anxiety/Depression N Gout N Other N Thyroid Disease N Kidney [...] N Immune System Disorder N Heart Attack (OR) Y Other Skin Condition N Mental Illness [...] SNOMED-CT Code Diagnosis ICD10 Code Diagnosis Note [id number] BENJAMIN PENDLETON MD [facility] [address] [place] [address] 11/03/2016 13:45:25 11/03/2016 16:50:35 Knee pain 76763896 M25.562 Mr Thomas has a fmeniscus root tear and early medial compartmen t overload. I recommend restricted weight bearing and a course of NSAIDs. [id number] BENJAMIN PENDLETON MD [facility] [address] [place] [address] 11/17/2016 09:18:10 12/15/2016 07:32:42 Knee pain 56931614 M25.562 Mr Thomas has a meniscus root tear and early medial compartmen t overload. I recommend restricted weight bearing, weight loss and wean from diclofenac . 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 I recommend activity modificati on and an exercise program. [id number] VLAD LEPE MD [facility] [address] [place] [address] 07/30/2020 10:31:55 07/30/2020 11:24:51 Ureteric stone 15806190 N20.[address] scan with the findings as above. Plan as above. [id number] AREN BARFIELD MD [facility]OSURG [facility] [address] 0 05/19/2022 09:50:13 06/03/2022 04:46:23 [id number] AREN BARFIELD MD SURGERY SCHEDULE [address] [place] [address] 05/23/2022 09:05:55 05/23/2022 10:51:10 [id number] AREN BARFIELD MD [facility] [address] [address] [address] [place] [address] 06/09/2022 08:55:00 06/10/2022 04:47:18 Postoperative care 193180802 Z48.89 [id number] PERI CANTOR MD PAIN MEDICINE [address] [place] [address] 07/16/2022 08:33:20 07/16/2022 16:07:09 Displacement of cervical intervertebral disc without myelopathy 78095588 M50.20 Degenerati on of cervical intervertebral disc 63025560 M50.30 Cervical spondylosis 387 182439 M47.812 [id number] ANY KILPATRICK PA-C [facility] [address] [place] [address] 09/25/2022 13:04:15 09/26/2022 04:37:05 Postoperative care 080363691 Z48.89 [id number] PERI CANTOR MD [facility] PROFESSIO NAL CHARGES [address] [place] [address] [address] [place] [address] 08/15/2022 13:40:34 08/15/2022 15:57:04 Cervical spondylosis 977775769 M47.812 [id number] PERI CANTOR MD [facility] PROFESSIO NAL CHARGES [address] [place] [address] [address] [place] [address] 09/09/2022 14:42:39 09/09/2022 16:28:31 Cervical spondylosis 082822992 M47.812 [id number] SUMMER GONZALEZ, ELECTION SUPERVISOR NEUROSURG [facility] [address] [place] [address] 12/18/2022 12:45:42 12/19/2022 04:41:53 Lumbar radiculopathy 464082732 M54.16 Lumbar spondylosis 04763 0009 M47.896 History of lumbar fusion 0370655715 9106 Z98.1 [id number] PERI CANTOR MD PAIN MEDICINE [address] [place] [address] 1 01/28/2023 13:19:54 01/28/2023 16:07:52 Degeneration of lumbar intervertebral disc 97569533 M51.36 Lumbar radiculopathy 128 060006 M54.16 [id number] PERI CANTOR MD [facility] PROFESSIO NAL CHARGES [address] [place] [address] [address] [place] [address] 1 01/28/2023 14:06:41 01/28/2023 14:29:56 Lumbar radiculopathy 132857145 M54.16 [id number] MD [facility] [address] 0 05/11/2023 11:50:55 05/11/2023 13:08:17 Urolithiasis 51673857 N20.9 Plan as above will arrange for bilateral ureterosco py and laser of stones possible stent placement [id number] AREN BARFIELD MD SURGERY SCHEDULE [address] [place] [address] 06/16/2023 08:07:40 06/18/2023 09:19:49 [id number] LUCHO ANN PA-C [facility]G [facility] [address] [facility] [address] [place] [address] 11/23/2023 09:02:39 11/24/2023 04:46:06 Lumbar radiculopathy 441079547 M54.16 Cervical radiculopathy 10302681 M54.12 Low back pain 001953305 M54.50 [id number] DUGLAS BASURTO MD [address] [place] [address] 04/11/2024 13:49:58 04/11/2024 16:09:51 Solar lentigo 14526651 L81.4 Benign Reassuranc eRecommend ed sun protective clothing and a mineral based sunscreen 30 SPF or higher lotion OTC daily Raised ebenezer orrheic keratosis 6280852223 75187 L82.1 Benign Reassuranc e Hemangioma 652344594 D18 .00 Benign Reassuranc e Multiple b enign melanocytic nevi 087626124 D22.9 Benign Reassuranc e History of squamous cell carcinoma of skin 379188663 Z85.828 Well-heale d scar History of Malignant melanoma 088428437 Z85.89 Well-heale d scar Actinic keratosis 535781 007 L57.0 Education then treated with LN; pt tolerated well advised pt what to expect with freezing Cyst of skin 992540394 L 72.9 Injected with kenalog 2mg/cc, total of 0.1cc injectedND C#: [id number] #:[id number] xp: 05/2025 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 60214922 D48.5 A.) Right proximal thigh r/o lentigo [...] Name 05/19/2022 1 [place] Tay Thomas [id number] Tay Thomas 05/19/2022 1 [place] [id number] Tay Thomas [id number] Tay Thomas 07/30/2020 1 [place] [id number] Kelsie Thomas [id number] Tay Thomas 05/19/2022 1 [place] [id number] Tay Thomas [id number] Tay Thomas 06/06/2024 1 [place] Tay Thomas [id number] Tay Thomas 06/15/2024 2 [employer] OPTIONS (MEDICARE SUPPLEMENT) Tay Thomas [id number] Tay Thomas Notes Date Note Type Note [...] by Dr. Barfield); fusion Previous Injections:JOSE (10/2021 @[facility] Dr. Day); helped temporarily Previous PT:none Previous Medical Service Technician:none PERI CANTOR MD [address] [place] [address], [address], [facility] 01/28/2023 13:59:51 05/11/2023 text/html Patient is here last seen 3 years ago following urolithiasis. Over the weekend he had acute onset of left flank pain. He was found to have a 5 mm stone at the left ureterovesical junction. CT scan was at [facility] emergency room. Additionally had a 10 mm stone in his left kidney and additional smaller stones. On the right he had a 7 mm renal stone nonobstructing. We discussed proceeding with ureteroscopic intervention. We discussed the possibility of perioperative ureteral stent placement. He understands wished to proceed to soon as possible. VLAD LEPE MD [address] [place], [address], [facility] 05/11/2023 13:14:06 11/23/2023 text/html Tay Thomas is [...] in clinic today. LUCHO ANN PA-C [address] [place], [address], [facility] 11/23/2023 09:43:39 04/11/2024 text/html New patient- {{S [...] history of malignant melanoma. DUGLAS BASURTO MD [address] [place] [address], [address], [facility] 04/11/2024 18:33:13
[2024-07-01] MEDS: SODIUM CHLORIDE 0.9% 50ML BAG 50 ML IV (11:28)
[2024-07-01] MEDS: SODIUM CHLORIDE 0.9% 10ML FLUSH SYRINGE 10 ML IV (11:28)
[2024-07-01 11:31] VITALS: BP 107/70; PULSE 58; RESP 18; TEMP 36.4; O2SAT 98
[2024-07-01] MEDS: DAPTOmycin 750 MG in 0.9 % SODIUM CHLORIDE 50 ML 100 MG IV (11:31)
[2024-07-01 12:17] VITALS: BP 115/79; PULSE 60; RESP 20; O2SAT 98
== END 2024-07-01 12:20 | disposition home or self-care (01) ==
LOC: INF 11:05
PROVIDERS: PCP Nurse Practitioner Family; Visit Provider Nurse Practitioner Family
DX: N20.0 Calculus of kidney (principal)
CPT/HCPCS: 96365; J0878

== ENCOUNTER 2024-07-02 10:49 | Outpatient (CLI) | payer MEDICARE, SELFPAY ==
[2024-07-02] MEDS: DAPTOmycin 750 MG in 0.9 % SODIUM CHLORIDE 50 ML 100 MG IV (11:20)
[2024-07-02] MEDS: SODIUM CHLORIDE 0.9% 10ML FLUSH SYRINGE 10 ML IV (12:03)
== END 2024-07-02 23:59 | disposition home or self-care (01) ==
LOC: INF 10:50
PROVIDERS: PCP Nurse Practitioner Family; Visit Provider Nurse Practitioner Family
DX: N20.0 Calculus of kidney (principal)
CPT/HCPCS: 96365; J0878

== ENCOUNTER 2024-07-03 11:59 | Outpatient (CLI) | payer MEDICARE, SELFPAY ==
--- OUTSIDE RECORDS SUMMARY | 2024-07-03 12:02 | XMS_ITS | Data Portability ---
Author Organization JEN - Esther aparicio, [place] [facility] Address [address] [place] [address] Care Team Providers Care Plugger Name Role Phone DESIREE LEE Primary Care [...] available Lab surgical pathology study 2024 025 [facility], [address] [place], [address], 04/12/2024 17:44:22 urinalysi s panel, auto 2023 024 [email or web address] [facility], [address], [place], [address], 05/11/2023 13:13:00 Referral None recorded. Procedures epidural steroid injection , lumbar interlami kelley (PROC) 2022 023 [email or web address] [facility]es, [address] [facility], [place], [address], 01/28/2023 14:13:10 Surgeries None recorded. Imaging MRI, cervical spine, w/o contrast 2023 [facility], [address] [facility], [place], [address], 12/15/2023 17:11:59 Medication Orders diclofena c sodium 75 mg tablet,de layed release 2023 [facility], [address] [place] [address], [id number], 11/23/2023 09:45:15 hydromorp citlali 4 mg tablet 2023 [facility], [address] [place] [address], [id number], 05/11/2023 13:14:01 Patient TargetsNo targets recorded. Patient Instructions Encounter Date Encounter Id Patient Instructions Last Modified By Organization Details Last Modified Time 04/11/2024 [id number] - Benign moles and keratoses seen on [...] Available [facility] [address], [place], [address], 05/11/2023 12:21:10 05/11/1905/11/2023 urina lysis panel , auto Unknown Analyte Yellow Not Available [facility] [address], [place], [address], 05/11/2023 12:21:10 05/11/19 24 05/11/2023 urina lysis panel , auto Unknown Analyte Clear Not Available [facility] [address], [place], [address], 05/11/2023 12:21:10 05/11/19 24 05/11/2023 urina lysis panel , auto Unknown Analyte 1.015 Not Available [facility] [address], [place], [address], 05/11/2023 12:21:10 05/11/19 24 05/11/2023 urina lysis panel , auto Unknown Analyte 1.003- 1.035 Not Available [facility] [address], [place], [address], 05/11/2023 12:21:10 05/11/19 24 05/11/2023 urina lysis panel , auto Unknown Analyte 5.0 Not Available [facility] [address], [place], [address], 05/11/2023 12:21:10 05/11/19 24 05/11/2023 urina lysis panel , auto Unknown Analyte 5.0-8. 0 Not Available [facility] [address], [place], [address], 05/11/2023 12:21:10 05/11/19 24 05/11/2023 urina lysis panel , auto Unknown Analyte 25 Elvia/ul Trace Not Available [facility] [address], [place], [address], 05/11/2023 12:21:10 05/11/19 24 05/11/2023 urina lysis panel , auto Unknown Analyte Negati ve Not Available [facility] [address], [place], [address], 05/11/2023 12:21:10 05/11/19 24 05/11/2023 urina lysis panel , auto Unknown Analyte Negati ve Not Available [facility] [address], [place], [address], 05/11/2023 12:21:10 05/11/19 24 05/11/2023 urina lysis panel , auto Unknown Analyte Negati ve Not Available [facility] [address], [place], [address], 05/11/2023 12:21:10 05/11/19 24 05/11/2023 urina lysis panel , auto Unknown Analyte Negati ve Not Available [facility] [address] [place] [address] [address], [place], [address], 05/11/2023 12:21:10 05/11/19 24 05/11/2023 urina lysis panel , auto Unknown Analyte Negati ve Not Available [facility] [address], [place], [address], 05/11/2023 12:21:10 05/11/19 24 05/11/2023 urina lysis panel , auto Unknown Analyte Normal Not Available [facility] [address], [place], [address], 05/11/2023 12:21:10 05/11/19 24 05/11/2023 urina lysis panel , auto Unknown Analyte Normal Not Available [facility] [address], [place], [address], 05/11/2023 12:21:10 05/11/19 24 05/11/2023 urina lysis panel , auto Unknown Analyte 15 mg/dl (Sm) Not Available [facility] [address], [place], [address], 05/11/2023 12:21:10 05/11/19 24 05/11/2023 urina lysis panel , auto Unknown Analyte Negati ve Not Available [facility] [address], [place], [address], 05/11/2023 12:21:10 05/11/19 24 05/11/2023 urina lysis panel , auto Unknown Analyte 1 mg/dl Not Available [facility] [address], [place], [address], 05/11/2023 12:21:10 05/11/19 24 05/11/2023 urina lysis panel , auto Unknown Analyte Normal 1 mg/dl Not Available [facility] [address], [place], [address], 05/11/2023 12:21:10 05/11/19 24 05/11/2023 urina lysis panel , auto Unknown Analyte Negati ve Not Available [facility] [address], [place], [address], 05/11/2023 12:21:10 05/11/19 24 05/11/2023 urina lysis panel , auto Unknown Analyte Negati ve Not Available [facility] [address] [facility] [address], [place], [address], 05/11/2023 12:21:10 05/11/19 24 05/11/2023 urina lysis panel , auto Unknown Analyte 250 Sera/ul Not Available [facility] [address] [facility] [address], [place], [address], 05/11/2023 12:21:10 05/11/19 24 05/11/2023 urina lysis panel , auto Unknown Analyte Negati ve Not Available [facility] [address] [facility] [address], [place], [address], 05/11/2023 12:21:10 04/11/19 25 04/11/2024 SURGI LORETO [...] 17:44 Page 1 of 1 Not Available [facility] [address] [place] [address], [address], 04/12/2024 17:44:22 01/16/20 23 01/15/2023 MRI, lumba r spine , w/wo contr ast Formerly [facility] [address] [place] [address], [place] [address] Patien t Name: TAY Duarte t : [...] status post discec vivi, interb finn graft, company accountant ior fusion and cliff ctomy at L4-L5. There is parama gnetic artifa ct from the pedicl e screws , company accountant ior fusion hardwa re and interb finn [...] strati on of [address] ([facility] [address]0 2), there is normal for surgic [...] Taylor alcantara MD on 2022 2:10 PM [email or web address] [facility] [address] [place] [address], [address], 01/23/2023 16:11:40 12/15/19 24 12/15/2023 MRI, cervi loreto spine , w/o contr ast [address] [place] [address] Gerald lozada Name: TAY lozada : 89 [...] listhe sis of C4 on C5 and company accountant ior listhe sis of C5 on C6. There is no fractu re or pathol ogic intrao sseous lesion . There is severe anteri or margin al osteop hytic spurri ng. No parasp inous soft tissue abnorm ality is identi fied. The visual ized spinal cord and company accountant ior fossa of the brain are normal [...] 2023 5:06 PM [facility]iology [facility] [address] [place] [address], [address], 01/27/2024 16:57:41 12/16/19 24 12/15/2023 MRI, lumba r spine , w/o contr ast [address] [address] Patiryan t Name: TAY lozada : 89 [...] is prior discec vivi, interb finn graft, company accountant ior fusion and cliff ctomy at L4-L5. There is parama gnetic artifa ct from the pedicl e screws , company accountant ior fusion hardwa re and interb finn [...] alcantara MD on 2023 7:09 AM [email or web address] [facility]iology [address], [address], 01/04/2024 08:05:34 12/16/19 24 12/15/2023 CT, lumba r spine , w/o contr ast [address] [address] Patiryan t Name: TAY lozada : [address]54 Patiryan t [facility] Provid er: NOEL BARFIELD EXAM DATE: [...] is prior discec vivi, interb finn graft, company accountant ior fusion and cliff ctomy at L4-L5. There is beam harden ing artifa ct from the pedicl e screws , company accountant ior fusion hardwa re and interb finn spacer . There is no eviden ce of loosen ing of the hardwa re or hardwa re failur e. There is mild levocu rvatur e from L1 throug h L3 and mild dextro curvat ure from L3 throug h L5. There is minima l company accountant ior listhe sis of L1 on L2 [...] There is bridgi ng bone in the company accountant ior elemen ts. There is severe left [...] Taylor alcantara MD on 2023 7:[email or web address] [place] [address] Rad[facility] [address], [address], 01/04/2024 08:05:33 Result Notes None recorded. Problems No Known Problems Procedures Surgical History Date Name Laterality Status Provider Name and Address Organization Details Recorded Time 04/11/19 25 Biopsy Skin Lesion; Tangential completed [facility] 04/11/2024 14:41:10 04/11/19 25 Injection, Intralesional completed DUGLAS BASURTO MD [address] [place] [address], [address], [facility] 04/11/2024 18:30:27 04/11/19 25 Destruction Premalignant Lesion(s) completed [facility] 04/11/2024 14:44:27 01/29/20 23 Lumbar Epidural Steroid Injection - Parth completed PERI CANTOR MD [address] [place] [address], [address], [facility] 01/28/2023 14:14:59 09/10/19 23 Cervical MBB 2 level - Parth completed PERI CANTOR MD [address] [place] [address], [address], [facility] 09/09/2022 16:11:18 08/16/19 23 Cervical MBB 2 level - Parth completed PERI CANTOR MD [address] [place], [address], [facility] 08/15/2022 15:23:46 05/04/19 23 Back Surgery completed Alana Streeter [facility] 07/16/2022 08:57:41 04/30/19 18 Shave Lesion; trunk, arm, leg completed MARIA DEL ROSARIO ODOM MD [address] [place] [address], [address], [facility] 04/30/2017 22:32:02 04/30/19 18 Destruction BN Lesions completed Aylin Toussaint [facility] 04/29/2017 08:43:13 Orthopedic Surgery completed Balta Pérez [facility] 11/03/2016 13:55:36 Imaging Results Imaging Date Name Status LastModified by Organiz ation Details LastModified Time 01/15/2023 MRI, lumbar spine, w/wo contrast completed [email or web address] [place] [address], [address], 01/23/2023 16:11:40 12/15/2023 MRI, cervical spine, w/o contrast completed [address], [address], 01/27/2024 16:57:41 12/15/2023 MRI, lumbar spine, w/o contrast completed [address], [address], 01/04/2024 08:05:34 12/15/2023 CT, lumbar spine, w/o contrast completed [address], [address], 01/04/2024 08:05:33 Procedure Notes None recorded. Medical Equipment None Reported. Allergies Allergen ID Allergen Name Allergen Category Reaction Reaction Severity Criticality Documentation Date Start Date Code Code System Note Provider Name and Address Organization Details Recorded Time 501763 lisinopri l medicatio n facial swelling Not available Not available 07/16/2022 83990 RxNorm Alana Streeter [facility] 3 08:45:16 Medications Name Sig [...] Updated DateTime 3 185.42 cm 33 kg/m2 788532. 09 g 97.5 [degF] 95 % 95 % 74 /min 120 mm[Hg] 84 mm[Hg] Bronson Rodriguez [facility] 3 13:39:07 Date Recorded Body height Body mass index (BMI) Body weight Provider Name and Address Organization Details Last Updated DateTime 05/11/2023 185.42 cm 32.3 kg/m2 189446.13 g Lissett Vaca [facility] 05/11/2023 12:12:05 Date Recorded Body height Body mass index (BMI) Body weight Systolic blood pressure Diastolic blood pressure Provider Name and Address Organization Details Last Updated DateTime 11/23/2023 185.42 cm 32.3 kg/m2 762334.1 3 g 120 mm[Hg] 82 mm[Hg] Dalila Lebronholz [facility] 09:06:44 Social History Question Answer Notes LastModified by Organizat ion Details LastModified Time Tobacco Smoking Status Current Some Day [facility] 11/03/2016 13:55:22 How Much Tobacco Do You Chew? None [email or web address] Information not available 07/30/2020 Marital Status [email or web address] Informatio n not available 07/30/2020 What Was The Date Of Your Most Recent Tobacco Screening? 12/07/2017 Information n ot available 04/05/2019 How Much Tobacco Do You Smoke? No [email or web address] Information not available 07/16/2022 Sex: Male Functional Status Question Answer Note LastModified by Organizat ion Details LastModified Time Do you or have you ever used any other forms of tobacco or nicotine? No [email or web address] Information not available 07/16/2022 What is your level of alcohol consumption? Occasional Information not available 07/30/2020 Are you currently employed? No [email or web address] Information not available 07/16/2022 Do you or have you ever used e-cigarettes or vape? Never used electronic cigarettes Information not available 07/30/2020 What is your exercise level? Heavy [email or web address] Information not available 07/16/2022 Mental Status None recorded. Family History Relationship Description Onset Age of this Age Resolved Age Notes LastModified by Organization Details LastModified Time Father Heart disease [email or web address] Not available 07/16 08:46:24 Brother Heart disease Not available 07/16 08:46:24 Paternal Grandfather Heart disease [email or web address] Not available 07/16 08:46:35 Medical History Condition Response Gout N Other N Anxiety/Depression N Thyroid Disease N Kidney Stones Y [...] N Immune System Disorder N Heart Attack (HI) Y Other Skin Condition N Mental Illness [...] SNOMED-CT Code Diagnosis ICD10 Code Diagnosis Note [id number] BENJAMIN PENDLETON MD [facility] [address] [address] 11/03/2016 13:45:25 11/03/2016 16:50:35 Knee pain 33411492 M25.562 Mr Thomas has a fmeniscus root tear and early medial compartmen t overload. I recommend restricted weight bearing and a course of NSAIDs. [id number] BENJAMIN PENDLETON MD [facility] [address] [address] 11/17/2016 09:18:10 12/15/2016 07:32:42 Knee pain 33093218 M25.562 Mr Thomas has a meniscus root tear and early medial compartmen t overload. I recommend restricted weight bearing, weight loss and wean from diclofenac . 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 I recommend activity modificati on and an exercise program. [id number] VLAD LEPE MD [facility] [address] [place] [address] 07/30/2020 10:31:55 07/30/2020 11:24:51 Ureteric stone 12648038 N20.[address] scan with the findings as above. Plan as above. [id number] AREN BARFIELD MD [facility] [address] 0 05/19/2022 09:50:13 06/03/2022 04:46:23 [id number] AREN BARFIELD MD SURGERY SCHEDULE [address] [place] [address] 05/23/2022 09:05:55 05/23/2022 10:51:10 [id number] AREN BARFIELD MD [facility] [address] [place] [address] 06/09/2022 08:55:00 06/10/2022 04:47:18 Postoperative care 936034016 Z48.89 [id number] PERI CANTOR MD [facility] [address] [place] [address] 07/16/2022 08:33:20 07/16/2022 16:07:09 Displacement of cervical intervertebral disc without myelopathy 67447239 M50.20 Degenerati on of cervical intervertebral disc 60258189 M50.30 Cervical spondylosis 387 473307 M47.812 [id number] ANY KILPATRICK PA-C [facility] [address] [place] [address] 09/25/2022 13:04:15 09/26/2022 04:37:05 Postoperative care 149715243 Z48.89 [id number] PERI CANTOR MD [facility] PROFESSIO NAL CHARGES [address] [place] [address] [address] [place] [address] 08/15/2022 13:40:34 08/15/2022 15:57:04 Cervical spondylosis 132023201 M47.812 [id number] PERI CANTOR MD [facility] PROFESSIO NAL CHARGES [address] [place] [address] [address] [place] [address] 09/09/2022 14:42:39 09/09/2022 16:28:31 Cervical spondylosis 820673497 M47.812 [id number] SUMMER GONZALEZ, INSTRUCTION LIBRARIAN [facility] [address] [place] [address] 12/18/2022 12:45:42 12/19/2022 04:41:53 Lumbar radiculopathy 776134482 M54.16 Lumbar spondylosis 65690 0009 M47.896 History of lumbar fusion 9317811398 9106 Z98.1 [id number] PERI CANTOR MD [facility] [address] [place] [address] 1 01/28/2023 13:19:54 01/28/2023 16:07:52 Degeneration of lumbar intervertebral disc 66590784 M51.36 Lumbar radiculopathy 128 500569 M54.16 [id number] PERI CANTOR MD [facility] [facility] PROFESSIO NAL CHARGES [address] [place] [address] [address] [place] [address] 1 01/28/2023 14:06:41 01/28/2023 14:29:56 Lumbar radiculopathy 427694385 M54.16 [id number] MD [facility] [address] 0 05/11/2023 11:50:55 05/11/2023 13:08:17 Urolithiasis 06850208 N20.9 Plan as above will arrange for bilateral ureterosco py and laser of stones possible stent placement [id number] AREN BARFIELD MD SURGERY SCHEDULE [address] [place] [address] 06/16/2023 08:07:40 06/18/2023 09:19:49 [id number] LUCHO ANN PA-C [facility] [address] [place] [address] 11/23/2023 09:02:39 11/24/2023 04:46:06 Lumbar radiculopathy 836952351 M54.16 Cervical radiculopathy 03168635 M54.12 Low back pain 739809007 M54.50 [id number] DUGLAS BASURTO MD [address] [address] [address] [place] [address] 04/11/2024 13:49:58 04/11/2024 16:09:51 Solar lentigo 05131688 L81.4 Benign Reassuranc eRecommend ed sun protective clothing and a mineral based sunscreen 30 SPF or higher lotion OTC daily Raised ebenezer orrheic keratosis 6348065076 85753 L82.1 Benign Reassuranc e Hemangioma 970420971 D18 .00 Benign Reassuranc e Multiple b enign melanocytic nevi 960677865 D22.9 Benign Reassuranc e History of squamous cell carcinoma of skin 503580702 Z85.828 Well-heale d scar History of Malignant melanoma 213019129 Z85.89 Well-heale d scar Actinic keratosis 245353 007 L57.0 Education then treated with LN; pt tolerated well advised pt what to expect with freezing Cyst of skin 862413091 L 72.9 Injected with kenalog 2mg/cc, total of 0.1cc injectedND C#: [id number] #:[id number] xp: 05/2025 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 05861648 D48.5 A.) Right proximal thigh r/o lentigo [...] ID Guarantor Name 05/19/2022 1 [place] Tya Thomas [id number] Tay Thomas 05/19/2022 1 [place] [id number] Tay Thomas [id number] Tay Thomas 07/30/2020 1 [place] [id number] Kelsie Thomas [id number] Tay Thomas 05/19/2022 1 [place] [id number] Tay Thomas [id number] Tay Thomas 06/06/2024 1 [place] Tay Thomas [id number] Tay Thomas 06/15/2024 2 [employer] OPTIONS (MEDICARE SUPPLEMENT) Tay Thomas [id number] Tay Thomas Notes Date Note Type Note [...] by Dr. Barfield); fusion Previous Injections:JOSE (10/2021 @[facility] Dr. Day); helped temporarily Previous PT:none Previous Regulatory Process Manager:none PERI CANTOR MD [address] [place] [address], [address], [facility] 01/28/2023 13:59:51 05/11/2023 text/html Patient is here last seen 3 years ago following urolithiasis. Over the weekend he had acute onset of left flank pain. He was found to have a 5 mm stone at the left ureterovesical junction. CT scan was at [facility] emergency room. Additionally had a 10 mm stone in his left kidney and additional smaller stones. On the right he had a 7 mm renal stone nonobstructing. We discussed proceeding with ureteroscopic intervention. We discussed the possibility of perioperative ureteral stent placement. He understands wished to proceed to soon as possible. VLAD LEPE MD [address] [place], [address], [facility] 05/11/2023 13:14:06 11/23/2023 text/html Tay Thomas [...] in clinic today. LUCHO ANN PA-C [address] [place], [address], [facility] 11/23/2023 09:43:39 04/11/2024 text/html New patient- [...] history of malignant melanoma. DUGLAS BASURTO MD [address] [place] [address], [address], [facility] 04/11/2024 18:33:13
[2024-07-03 12:22] VITALS: BMI 29.7
[2024-07-03] MEDS: METHYLPREDNISOLONE SOD SUCC 125MG VIAL 60 MG IV (12:45)
[2024-07-03] MEDS: diphenhydrAMINE 25MG CAPSULE 25 MG PO (12:45)
[2024-07-03 13:18] LABS: MANUAL DIFFERENTIAL MANUAL DIFFERENTIAL (MANUAL DIFF)
[2024-07-03 13:26] LABS: Albumin Level 4.8 g/dl (3.5-5.0); Chloride 106 mmol/L (98-107); Potassium 4.5 mmoL/L (3.5-5.1); Sodium 139 mmol/L (136-145)
[2024-07-03 13:28] LABS: Alanine Aminotransferase 47 U/L (12-78); Aspartate Amino Transferase 44 U/L (17-59); Blood Urea Nitrogen 18 mg/dl (9-20); Creatinine Clearance Estimated 99 mL/min (50-200); Estimated Glomerular Filt Rate 96 ml/min (>60); GFR (African American) 116 ML/MIN (>60)
[2024-07-03 13:29] LABS: Albumin/Globulin Ratio 1.8 (1.1-1.8); Alkaline Phosphatase 117 U/L (38-126); Anion Gap 8.5 mEq/L (5-15); Bilirubin,Total 0.5 mg/dl (0.2-1.3); Calcium 9.6 mg/dl (8.4-10.2); Carbon Dioxide 29 mmol/L (22.0-30.0); Creatine Kinase 81 U/L (55-170); Globulin 2.6 g/dL (1.3-3.2); Glucose 117 mg/dl (74-100); Total Protein,Serum 7.4 g/dl (6.3-8.2)
[2024-07-03 13:38] LABS: Basophils # 0.1 K/mm3 (0-0.2); Basophils % 1.4 % (0.1-2.0); Eosinophils # 0.1 Kmm3 (0.0-0.4); Hematocrit 41.1 % (42.0-52.0); Hemoglobin 13.3 g/dL (14.1-18.0); Lymphocytes # 1.9 K/mm3 (0.7-4.5); Mean Corpuscular HGB Conc 32.4 g/dL (31.8-35.4); Mean Corpuscular Hemoglobin 29.9 pg (27.0-31.2); Mean Corpuscular Volume 92.4 fl (80-94); Mean Platelet Volume 9.7 fl (7.4-10.4); Monocytes # 0.5 K/mm3 (0.1-1.0); Monocytes % 8.1 % (1.7-9.3); Neutrophils # 3.7 K/mm3 (1.8-7.8); Neutrophils % 58.2 % (37.0-80.0); Platelet Count 257 K/mm3 (142-424); Red Blood Count 4.45 M/mm3 (4.60-6.20); Red Cell Distribution Width 13.1 % (11.5-17.5); White Blood Count 6.4 K/mm3 (4.8-10.8)
[2024-07-03] MEDS: DAPTOmycin 750 MG in 0.9 % SODIUM CHLORIDE 50 ML 100 MG IV (13:44)
[2024-07-03 14:14] LABS: Lymphocytes % 35 % (10-50); Monocytes % 4 % (2-9); Neutrophils % 61 % (42-76); Platelet Estimate Normal; RBC Morphology Normal; Total Cells Counted 100
--- NOTE | 2024-07-03 14:37 | PC.NURSE ---
Patient complained of itchy red rash, upon assessment patient found to have raised red rash on all extremities, abdomen, and face. MD notified at this time, given order for CBC, CMP, CK, solumedrol and benadryl. Labs obtained and reviewed with MD, given okay to proceed with infusion, Patient medicated prior to infusion. Patient tolerated infusion well, left in stable condition.
== END 2024-07-03 23:59 | disposition home or self-care (01) ==
LOC: INF 12:00
PROVIDERS: Internal Medicine Adolescent Medicine; PCP Nurse Practitioner Family; Visit Provider Nurse Practitioner Family
DX: N20.0 Calculus of kidney (principal)
CPT/HCPCS: 36415; 80053; 82550; 85007; 85014; 85018; 85048; 85049; 96365; G0463; J0878; J2919

== ENCOUNTER 2024-07-04 11:04 | Outpatient (CLI) | payer MEDICARE, SELFPAY ==
[2024-07-04] MEDS: DAPTOmycin 750 MG in 0.9 % SODIUM CHLORIDE 50 ML 100 MG IV (11:12)
[2024-07-04 11:13] VITALS: BMI 29.7
[2024-07-04] MEDS: SODIUM CHLORIDE 0.9% 50ML BAG 50 ML IV (11:13)
[2024-07-04 11:21] VITALS: BP 134/76; PULSE 69; RESP 18; O2SAT 98
[2024-07-04 12:04] VITALS: BP 142/74; PULSE 63; RESP 18; O2SAT 98
== END 2024-07-04 12:04 | disposition home or self-care (01) ==
LOC: INF 11:06
PROVIDERS: PCP Nurse Practitioner Family; Visit Provider Nurse Practitioner Family
DX: N20.0 Calculus of kidney (principal)
CPT/HCPCS: 96365; J0878

== ENCOUNTER 2024-07-05 10:50 | Outpatient (CLI) | payer MEDICARE, SELFPAY ==
--- OUTSIDE RECORDS SUMMARY | 2024-07-05 10:52 | XMS_ITS | Data Portability ---
Author Organization JEN - Esther aparicio, KHUSHIS PAW PAW CLOSED Address [address] [facility] [address] [place] [address] Care Team Providers Care Slinger Sequins Name Role Phone DESIREE LEE Primary Care [...] available Lab surgical pathology study 2024 025 [facility], [address] [place], [address], 04/12/2024 17:44:22 urinalysi s panel, auto 2023 024 megan Formerly [facility], [address], [address], [place], [address], 05/11/2023 13:13:00 Referral None recorded. Procedures epidural steroid injection , lumbar interlami kelley (PROC) 2022 023 [facility] Professional Charges, [address] [facility], [address], [place], [address], 01/28/2023 14:13:10 Surgeries None recorded. Imaging MRI, cervical spine, w/o contrast 2023 [facility], [address] [facility], [place], [address], 12/15/2023 17:11:59 Medication Orders diclofena c sodium 75 mg tablet,de layed release 2023 [facility], [address] [place] [address], [id number], 11/23/2023 09:45:15 hydromorp citlali [address] [facility], [address] [place] [address], [id number], 05/11/2023 13:14:01 Patient TargetsNo targets recorded. Patient Instructions Encounter Date Encounter Id Patient Instructions Last Modified By Organization Details Last Modified Time 04/11/2024 [id number] - Benign moles and keratoses seen on [...] Available [facility] [address], [place], [address], 05/11/2023 12:21:10 05/11/1905/11/2023 urina lysis panel , auto Unknown Analyte Yellow Not Available [facility] [address], [place], [address], 05/11/2023 12:21:10 05/11/19 24 05/11/2023 urina lysis panel , auto Unknown Analyte Clear Not Available [facility] [address], [place], [address], 05/11/2023 12:21:10 05/11/19 24 05/11/2023 urina lysis panel , auto Unknown Analyte 1.015 Not Available [facility] [address], [place], [address], 05/11/2023 12:21:10 05/11/19 24 05/11/2023 urina lysis panel , auto Unknown Analyte 1.003- 1.035 Not Available [facility] [address], [place], [address], 05/11/2023 12:21:10 05/11/19 24 05/11/2023 urina lysis panel , auto Unknown Analyte 5.0 Not Available [facility] [address], [place], [address], 05/11/2023 12:21:10 05/11/19 24 05/11/2023 urina lysis panel , auto Unknown Analyte 5.0-8. 0 Not Available [facility] [address], [place], [address], 05/11/2023 12:21:10 05/11/19 24 05/11/2023 urina lysis panel , auto Unknown Analyte 25 Elvia/ul Trace Not Available [facility] [address], [place], [address], 05/11/2023 12:21:10 05/11/19 24 05/11/2023 urina lysis panel , auto Unknown Analyte Negati ve Not Available [facility] [address], [place], [address], 05/11/2023 12:21:10 05/11/19 24 05/11/2023 urina lysis panel , auto Unknown Analyte Negati ve Not Available [facility] [address], [place], [address], 05/11/2023 12:21:10 05/11/19 24 05/11/2023 urina lysis panel , auto Unknown Analyte Negati ve Not Available [facility] [address], [place], [address], 05/11/2023 12:21:10 05/11/19 24 05/11/2023 urina lysis panel , auto Unknown Analyte Negati ve Not Available [facility] [address] [place] [address] [address], [place], [address], 05/11/2023 12:21:10 05/11/19 24 05/11/2023 urina lysis panel , auto Unknown Analyte Negati ve Not Available [facility] [address], [place], [address], 05/11/2023 12:21:10 05/11/19 24 05/11/2023 urina lysis panel , auto Unknown Analyte Normal Not Available [facility] [address], [place], [address], 05/11/2023 12:21:10 05/11/19 24 05/11/2023 urina lysis panel , auto Unknown Analyte Normal Not Available [facility] [address], [place], [address], 05/11/2023 12:21:10 05/11/19 24 05/11/2023 urina lysis panel , auto Unknown Analyte 15 mg/dl (Sm) Not Available [facility] [address], [place], [address], 05/11/2023 12:21:10 05/11/19 24 05/11/2023 urina lysis panel , auto Unknown Analyte Negati ve Not Available [facility] [address], [place], [address], 05/11/2023 12:21:10 05/11/19 24 05/11/2023 urina lysis panel , auto Unknown Analyte 1 mg/dl Not Available [facility] [address], [place], [address], 05/11/2023 12:21:10 05/11/19 24 05/11/2023 urina lysis panel , auto Unknown Analyte Normal 1 mg/dl Not Available [facility] [address], [place], [address], 05/11/2023 12:21:10 05/11/19 24 05/11/2023 urina lysis panel , auto Unknown Analyte Negati ve Not Available [facility] [address], [place], [address], 05/11/2023 12:21:10 05/11/19 24 05/11/2023 urina lysis panel , auto Unknown Analyte Negati ve Not Available [facility] [address] [facility] [address], [place], [address], 05/11/2023 12:21:10 05/11/19 24 05/11/2023 urina lysis panel , auto Unknown Analyte 250 Sera/ul Not Available [facility] [address] [facility] [address], [place], [address], 05/11/2023 12:21:10 05/11/19 24 05/11/2023 urina lysis panel , auto Unknown Analyte Negati ve Not Available [facility] [address] [facility] [address], [place], [address], 05/11/2023 12:21:10 04/11/19 25 04/11/2024 SURGI LORETO [...] 17:44 Page 1 of 1 Not Available [facility] [address] [place] [address], [address], 04/12/2024 17:44:22 01/16/20 23 01/15/2023 MRI, lumba r spine , w/wo contr ast [facility] [address] [place] [address], [place] [address] Patien t Name: TAY Duarte t : [...] status post discec vivi, interb finn graft, junior technical writer ior fusion and cliff ctomy at L4-L5. There is parama gnetic artifa ct from the pedicl e screws , junior technical writer ior fusion hardwa re and interb finn [...] strati on of [address] ([facility] [address]- 0325-0 2), there is normal for surgic [...] Taylor alcantara MD on 2022 2:10 PM [email or web address] [facility] [address] [place] [address], [address], 01/23/2023 16:11:40 12/15/19 24 12/15/2023 MRI, cervi loreto spine , w/o contr ast [address] [place] [address] Gerald lozada Name: TAY lozada : 952 [...] listhe sis of C4 on C5 and junior technical writer ior listhe sis of C5 on C6. There is no fractu re or pathol ogic intrao sseous lesion . There is severe anteri or margin al osteop hytic spurri ng. No parasp inous soft tissue abnorm ality is identi fied. The visual ized spinal cord and junior technical writer ior fossa of the brain are normal [...] Taylor alcantara MD on 2023 5:06 PM [facility] [address] [place] [address], [address], 01/27/2024 16:57:41 12/16/19 24 12/15/2023 MRI, lumba r spine , w/o contr ast [address] [address] Patiryan t Name: ATY lozada : 954 Patiryan lozada Orderi ng [...] is prior discec vivi, interb finn graft, junior technical writer ior fusion and cliff ctomy at L4-L5. There is parama gnetic artifa ct from the pedicl e screws , junior technical writer ior fusion hardwa re and interb finn [...] alcantara MD on 2023 7:09 AM [email or web address] [facility] [address], [address], 01/04/2024 08:05:34 12/16/19 24 12/15/2023 CT, lumba r spine , w/o contr ast [address] [address] Patiryan t Name: TAY lozada : 954 Patiryan t [facility]: NOEL BARFIELD EXAM DATE: [...] is prior discec vivi, interb finn graft, junior technical writer ior fusion and cliff ctomy at L4-L5. There is beam harden ing artifa ct from the pedicl e screws , junior technical writer ior fusion hardwa re and interb finn spacer . There is no eviden ce of loosen ing of the hardwa re or hardwa re failur e. There is mild levocu rvatur e from L1 throug h L3 and mild dextro curvat ure from L3 throug h L5. There is minima l junior technical writer ior listhe sis of L1 on L2 [...] There is bridgi ng bone in the junior technical writer ior elemen ts. There is severe left [...] narrow ing at L3-L4. Interp reted By: Tayolr alcantara MD Electr onical ly Signed By: Taylor alcantara MD on 2023 7:[email or web address] [facility] [address], [address], 01/04/2024 08:05:33 Result Notes None recorded. Problems No Known Problems Procedures Surgical History Date Name Laterality Status Provider Name and Address Organization Details Recorded Time 04/11/19 25 Biopsy Skin Lesion; Tangential completed [facility] 04/11/2024 14:41:10 04/11/19 25 Injection, Intralesional completed DUGLAS BASURTO MD [address] [place] [address], [address], [facility] 04/11/2024 18:30:27 04/11/19 25 Destruction Premalignant Lesion(s) completed [facility] 04/11/2024 14:44:27 01/29/20 23 Lumbar Epidural Steroid Injection - Parth completed PERI CANTOR MD [address] [place] [address], [address], [facility] 01/28/2023 14:14:59 09/10/19 23 Cervical MBB 2 level - Parth completed PERI CANTOR MD [address] [place] [address], [address], [facility] 09/09/2022 16:11:18 08/16/19 23 Cervical MBB 2 level - Parth completed PERI CANTOR MD [address] [place], [address], [facility] 08/15/2022 15:23:46 05/04/19 23 Back Surgery completed Alana Streeter [facility] 07/16/2022 08:57:41 04/30/19 18 Shave Lesion; trunk, arm, leg completed MARIA DEL ROSARIO ODOM MD [address] [place] [address], [address], [facility] 04/30/2017 22:32:02 04/30/19 18 Destruction BN Lesions completed Aylin Toussaint [facility] 04/29/2017 08:43:13 Orthopedic Surgery completed Balta Pérez [facility] 11/03/2016 13:55:36 Imaging Results Imaging Date Name Status LastModified by Organiz ation Details LastModified Time 01/15/2023 MRI, lumbar spine, w/wo contrast completed [email or web address] [place] [address], [address], 01/23/2023 16:11:40 12/15/2023 MRI, cervical spine, w/o contrast completed [address], [address], 01/27/2024 16:57:41 12/15/2023 MRI, lumbar spine, w/o contrast completed [address], [address], 01/04/2024 08:05:34 12/15/2023 CT, lumbar spine, w/o contrast completed [address], [address], 01/04/2024 08:05:33 Procedure Notes None recorded. Medical Equipment None Reported. Allergies Allergen ID Allergen Name Allergen Category Reaction Reaction Severity Criticality Documentation Date Start Date Code Code System Note Provider Name and Address Organization Details Recorded Time 793973 lisinopri l medicatio n facial swelling Not available Not available 07/16/2022 [id number] RxNorm Alana Streeter [facility] 3 08:45:16 Medications Name Sig Start Date [...] Updated DateTime 3 185.42 cm 33 kg/m2 868868. 09 g 97.5 [degF] 95 % 95 % 74 /min 120 mm[Hg] 84 mm[Hg] Bronson Rodriguez [facility] 3 13:39:07 Date Recorded Body height Body mass index (BMI) Body weight Provider Name and Address Organization Details Last Updated DateTime 05/11/2023 185.42 cm 32.3 kg/m2 000322.13 g Lissett Vaca [facility] 05/11/2023 12:12:05 Date Recorded Body height Body mass index (BMI) Body weight Systolic blood pressure Diastolic blood pressure Provider Name and Address Organization Details Last Updated DateTime 11/23/2023 185.42 cm 32.3 kg/m2 291645.1 3 g 120 mm[Hg] 82 mm[Hg] Dalila Lebronholz [facility] 09:06:44 Social History Question Answer Notes LastModified by Organizat ion Details LastModified Time Tobacco Smoking Status Current Some Day [facility] 11/03/2016 13:55:22 How Much Tobacco Do You Chew? None [email or web address] Information not available 07/30/2020 Marital Status [email or web address] Informatio n not available 07/30/2020 What Was The Date Of Your Most Recent Tobacco Screening? 12/07/2017 Information n ot available 04/05/2019 How Much Tobacco Do You Smoke? No [email or web address] Information not available 07/16/2022 Sex: Male Functional Status Question Answer Note LastModified by Organizat ion Details LastModified Time Do you or have you ever used any other forms of tobacco or nicotine? No Information not available 07/16/2022 What is your level of alcohol consumption? Occasional [email or web address] Information not available 07/30/2020 Are you currently employed? No [email or web address] Information not available 07/16/2022 Do you or have you ever used e-cigarettes or vape? Never used electronic cigarettes [email or web address] Information not available 07/30/2020 What is your exercise level? Heavy [email or web address] Information not available 07/16/2022 Mental Status None recorded. Family History Relationship Description Onset Age of this Age Resolved Age Notes LastModified by Organization Details LastModified Time Father Heart disease [email or web address] Not available 07/16 08:46:24 Brother Heart disease [email or web address] Not available 07/16 08:46:24 Paternal Grandfather Heart disease [email or web address] Not available 07/16 08:46:35 Medical History Condition [...] N Immune System Disorder N Heart Attack (IN) Y Other Skin Condition N Mental Illness [...] SNOMED-CT Code Diagnosis ICD10 Code Diagnosis Note [id number] BENJAMIN PENDLETON MD [facility] [address] [address] 11/03/2016 13:45:25 11/03/2016 16:50:35 Knee pain 22016455 M25.562 Mr Thomas has a fmeniscus root tear and early medial compartmen t overload. I recommend restricted weight bearing and a course of NSAIDs. [id number] BENJAMIN PENDLETON MD [facility] [address] [address] 11/17/2016 09:18:10 12/15/2016 07:32:42 Knee pain 86694259 M25.562 Mr Thomas has a meniscus root tear and early medial compartmen t overload. I recommend restricted weight bearing, weight loss and wean from diclofenac . 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 I recommend activity modificati on and an exercise program. [id number] VLAD LEPE MD [facility] [address] [place] [address] 07/30/2020 10:31:55 07/30/2020 11:24:51 Ureteric stone 30761945 N20.[address] scan with the findings as above. Plan as above. [id number] AREN BARFIELD MD [facility] [address] 0 05/19/2022 09:50:13 06/03/2022 04:46:23 [id number] AREN BARFIELD MD SURGERY SCHEDULE [address] [place] [address] 05/23/2022 09:05:55 05/23/2022 10:51:10 [id number] AREN BARFIELD MD [facility] [address] [place] [address] 06/09/2022 08:55:00 06/10/2022 04:47:18 Postoperative care 642632919 Z48.89 [id number] PERI CANTOR MD [facility]ICINE [address] [place] [address] 07/16/2022 08:33:20 07/16/2022 16:07:09 Displacement of cervical intervertebral disc without myelopathy 75319492 M50.20 Degenerati on of cervical intervertebral disc 69203724 M50.30 Cervical spondylosis 387 304426 M47.812 [id number] ANY KILPATRICK PA-C [facility] [address] [place] [address] 09/25/2022 13:04:15 09/26/2022 04:37:05 Postoperative care 457716627 Z48.89 [id number] PERI CANTOR MD [facility] OF [facility] PROFESSIO NAL CHARGES [address] [place] [address] [address] [place] [address] 08/15/2022 13:40:34 08/15/2022 15:57:04 Cervical spondylosis 238235661 M47.812 [id number] PERI CANTOR MD [facility] PROFESSIO NAL CHARGES [address] [place] [address] [address] [place] [address] 09/09/2022 14:42:39 09/09/2022 16:28:31 Cervical spondylosis 165226549 M47.812 [id number] SUMMER GONZALEZ, JET OPERATOR [facility] [address] [place] [address] 12/18/2022 12:45:42 12/19/2022 04:41:53 Lumbar radiculopathy 426973814 M54.16 Lumbar spondylosis 68342 0009 M47.896 History of lumbar fusion 1535759642 9106 Z98.1 [id number] PERI CANTOR MD [facility] [address] [place] [address] 1 01/28/2023 13:19:54 01/28/2023 16:07:52 Degeneration of lumbar intervertebral disc 03064563 M51.36 Lumbar radiculopathy 128 239653 M54.16 [id number] PERI CANTOR MD [facility] PROFESSIO NAL CHARGES [address] [place] [address] [address] [place] [address] 01/28/2023 14:06:41 01/28/2023 14:29:56 Lumbar radiculopathy 313123622 M54.16 [id number] MD [facility] [address] 0 05/11/2023 11:50:55 05/11/2023 13:08:17 Urolithiasis 53137723 N20.9 Plan as above will arrange for bilateral ureterosco py and laser of stones possible stent placement [id number] AREN BARFIELD MD SURGERY SCHEDULE [address] [place] [address] 06/16/2023 08:07:40 06/18/2023 09:19:49 [id number] LUCHO ANN PA-C [facility] [address] [place] [address] 11/23/2023 09:02:39 11/24/2023 04:46:06 Lumbar radiculopathy 927932520 M54.16 Cervical radiculopathy 90585591 M54.12 Low back pain 213043488 M54.50 [id number] DUGLAS BASURTO MD [address] [address] [place] [address] 04/11/2024 13:49:58 04/11/2024 16:09:51 Solar lentigo 28099209 L81.4 Benign Reassuranc eRecommend ed sun protective clothing and a mineral based sunscreen 30 SPF or higher lotion OTC daily Raised ebenezer orrheic keratosis 9576804845 62339 L82.1 Benign Reassuranc e Hemangioma 151319979 D18 .00 Benign Reassuranc e Multiple b enign melanocytic nevi 671123601 D22.9 Benign Reassuranc e History of squamous cell carcinoma of skin 161628789 Z85.828 [place] scar History of Malignant melanoma 026865924 Z85.89 [place] scar Actinic keratosis 526813 007 L57.0 Education then treated with LN; pt tolerated well advised pt what to expect with freezing Cyst of skin 427458786 L 72.9 Injected with kenalog 2mg/cc, total of 0.1cc injectedND C#: [id number] #:[id number] xp: 05/2025 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 83119187 D48.5 A.) Right proximal thigh r/o lentigo [...] Name 05/19/2022 1 [place] Tay Thomas [id number] Tay Thomas 05/19/2022 1 [place] [id number] Tay Thomas [id number] Tay Thomas 07/30/2020 1 [place] [id number] Kelsie Thomas [id number] Tay Thomas 05/19/2022 1 [place] [id number] Tay Thomas [id number] Tay Thomas 06/06/2024 1 [place] Tay Thomas [id number] Tay Thomas 06/15/2024 2 [employer] OPTIONS (MEDICARE SUPPLEMENT) Tay Thomas [id number] Tay Thomas Notes Date Note Type Note [...] by Dr. Barfield); fusion Previous Injections:JOSE (10/2021 @[facility] Dr. Day); helped temporarily Previous PT:none Previous Manager Merchandising:none PERI CANTOR MD [address] [place] [address], [address], [facility] 01/28/2023 13:59:51 05/11/2023 text/html Patient is here last seen 3 years ago following urolithiasis. Over the weekend he had acute onset of left flank pain. He was found to have a 5 mm stone at the left ureterovesical junction. CT scan [facility] at [facility] emergency room. Additionally had a 10 mm stone in his left kidney and additional smaller stones. On the right he had a 7 mm renal stone nonobstructing. We discussed proceeding with ureteroscopic intervention. We discussed the possibility of perioperative ureteral stent placement. He understands wished to proceed to soon as possible. VLAD LEPE MD [address] [place], [address], [facility] 05/11/2023 13:14:06 11/23/2023 text/html Tay [...] in clinic today. LUCHO ANN PA-C [address] [place], [address], [facility] 11/23/2023 09:43:39 04/11/2024 text/html New [...] history of malignant melanoma. DUGLAS BASURTO MD [address] [place] [address], [address], [facility] 04/11/2024 18:33:13
[2024-07-05] MEDS: SODIUM CHLORIDE 0.9% 50ML BAG 50 ML IV (11:02)
[2024-07-05] MEDS: SODIUM CHLORIDE 0.9% 10ML FLUSH SYRINGE 10 ML IV (11:02)
[2024-07-05 11:16] VITALS: BP 110/71; PULSE 72; RESP 18; TEMP 36.9; O2SAT 98
[2024-07-05] MEDS: DAPTOmycin 750 MG in 0.9 % SODIUM CHLORIDE 50 ML 100 MG IV (11:16)
[2024-07-05 12:03] VITALS: BP 109/72; PULSE 58; RESP 18; O2SAT 98
== END 2024-07-05 12:03 | disposition home or self-care (01) ==
LOC: INF 10:51
PROVIDERS: PCP Nurse Practitioner Family; Visit Provider Nurse Practitioner Family
DX: N20.0 Calculus of kidney (principal)
CPT/HCPCS: 96365; J0878

== ENCOUNTER 2024-07-06 10:52 | Outpatient (CLI) | payer MEDICARE, SELFPAY ==
--- OUTSIDE RECORDS SUMMARY | 2024-07-06 10:55 | XMS_ITS | Data Portability ---
Author Organization JEN - Esther aparicio, KHUSHIS HOUSTON CLOSED Address [address] [place] [address] Care Team Providers Care Heel Attacher Name Role Phone DESIREE LEE Primary Care [...] available Lab surgical pathology study 2024 025 [facility], [address] [place], [address], 04/12/2024 17:44:22 urinalysi s panel, auto 2023 024 megan [facility], [address], [place], [address], 05/11/2023 13:13:00 Referral None recorded. Procedures epidural steroid injection , lumbar interlami kelley (PROC) 2022 023 [email or web address] [facility] Professional Charges, [address], [place], [address], 01/28/2023 14:13:10 Surgeries None recorded. Imaging MRI, cervical spine, w/o contrast 2023 [facility], [address], [place], [address], 12/15/2023 17:11:59 Medication Orders diclofena c sodium 75 mg tablet,de layed release 2023 [facility], [address] [place] [address], [id number], 11/23/2023 09:45:15 hydromorp citlali 4 mg tablet 2023 [facility], [address] [place] [address], [id number], 05/11/2023 13:14:01 Patient TargetsNo targets recorded. Patient Instructions Encounter Date Encounter Id Patient Instructions Last Modified By Organization Details Last Modified Time 04/11/2024 [id number] - Benign moles and keratoses seen on [...] Analyte Clean Catch Not Available [facility] [address], [place], [address], 05/11/2023 12:21:10 05/11/1905/11/2023 urina lysis panel , auto Unknown Analyte Yellow Not Available [facility] [address], [place], [address], 05/11/2023 12:21:10 05/11/19 24 05/11/2023 urina lysis panel , auto Unknown Analyte Clear Not Available [facility] [address], [place], [address], 05/11/2023 12:21:10 05/11/19 24 05/11/2023 urina lysis panel , auto Unknown Analyte 1.015 Not Available [facility] [address], [place], [address], 05/11/2023 12:21:10 05/11/19 24 05/11/2023 urina lysis panel , auto Unknown Analyte 1.003- 1.035 Not Available [facility] [address], [place], [address], 05/11/2023 12:21:10 05/11/19 24 05/11/2023 urina lysis panel , auto Unknown Analyte 5.0 Not Available [facility] [address], [place], [address], 05/11/2023 12:21:10 05/11/19 24 05/11/2023 urina lysis panel , auto Unknown Analyte 5.0-8. 0 Not Available [facility] [address], [place], [address], 05/11/2023 12:21:10 05/11/19 24 05/11/2023 urina lysis panel , auto Unknown Analyte 25 Elvia/ul Trace Not Available [facility] [address], [place], [address], 05/11/2023 12:21:10 05/11/19 24 05/11/2023 urina lysis panel , auto Unknown Analyte Negati ve Not Available [facility] [address], [place], [address], 05/11/2023 12:21:10 05/11/19 24 05/11/2023 urina lysis panel , auto Unknown Analyte Negati ve Not Available [facility] [address], [place], [address], 05/11/2023 12:21:10 05/11/19 24 05/11/2023 urina lysis panel , auto Unknown Analyte Negati ve Not Available [facility] [address], [place], [address], 05/11/2023 12:21:10 05/11/19 24 05/11/2023 urina lysis panel , auto Unknown Analyte Negati ve Not Available [facility] [address] [place] [address] [address], [place], [address], 05/11/2023 12:21:10 05/11/19 24 05/11/2023 urina lysis panel , auto Unknown Analyte Negati ve Not Available [facility] [address], [place], [address], 05/11/2023 12:21:10 05/11/19 24 05/11/2023 urina lysis panel , auto Unknown Analyte Normal Not Available [facility] [address], [place], [address], 05/11/2023 12:21:10 05/11/19 24 05/11/2023 urina lysis panel , auto Unknown Analyte Normal Not Available [facility] [address], [place], [address], 05/11/2023 12:21:10 05/11/19 24 05/11/2023 urina lysis panel , auto Unknown Analyte 15 mg/dl (Sm) Not Available [facility] [address], [place], [address], 05/11/2023 12:21:10 05/11/19 24 05/11/2023 urina lysis panel , auto Unknown Analyte Negati ve Not Available [facility] [address], [place], [address], 05/11/2023 12:21:10 05/11/19 24 05/11/2023 urina lysis panel , auto Unknown Analyte 1 mg/dl Not Available [facility] [address], [place], [address], 05/11/2023 12:21:10 05/11/19 24 05/11/2023 urina lysis panel , auto Unknown Analyte Normal 1 mg/dl Not Available [facility] [address], [place], [address], 05/11/2023 12:21:10 05/11/19 24 05/11/2023 urina lysis panel , auto Unknown Analyte Negati ve Not Available [facility] [address], [place], [address], 05/11/2023 12:21:10 05/11/19 24 05/11/2023 urina lysis panel , auto Unknown Analyte Negati ve Not Available [facility] [address] [facility] [address], [place], [address], 05/11/2023 12:21:10 05/11/19 24 05/11/2023 urina lysis panel , auto Unknown Analyte 250 Sera/ul Not Available [facility] [address] [facility] [address], [place], [address], 05/11/2023 12:21:10 05/11/19 24 05/11/2023 urina lysis panel , auto Unknown Analyte Negati ve Not Available [facility] [address] [facility] [address], [place], [address], 05/11/2023 12:21:10 04/11/19 25 04/11/2024 SURGI LORETO [...] 17:44 Page 1 of 1 Not Available [facility] [address] [place] [address], [address], 04/12/2024 17:44:22 01/16/20 23 01/15/2023 MRI, lumba r spine , w/wo contr ast [facility] [address] [place] [address], [place] [address] Patien t Name: TAY Duarte t : [...] post discec vivi, interb finn graft, junior accountant bookkeeper ior fusion and cliff ctomy at L4-L5. There is parama gnetic artifa ct from the pedicl e screws , junior accountant bookkeeper ior fusion hardwa re and interb finn [...] strati on of [address] ([facility] [address]25-0 2), there is normal for surgic [...] Taylor alcantara MD on 2022 2:10 PM [email or web address] [facility] [address] [place] [address], [address], 01/23/2023 16:11:40 12/15/19 24 12/15/2023 MRI, cervi loreto spine , w/o contr ast [address] [place] [address] Gerald lozada Name: TAY lozada : 89 [...] sis of C4 on C5 and junior accountant bookkeeper ior listhe sis of C5 on C6. There is no fractu re or pathol ogic intrao sseous lesion . There is severe anteri or margin al osteop hytic spurri ng. No parasp inous soft tissue abnorm ality is identi fied. The visual ized spinal cord and junior accountant bookkeeper ior fossa of the brain are normal [...] Taylor alcantara MD on 2023 5:06 PM [facility] [address] [place] [address], [address], 01/27/2024 16:57:41 12/16/19 24 12/15/2023 MRI, lumba r spine , w/o contr ast [address] [address] Patiryan t Name: TAY lozada : 89 [...] prior discec vivi, interb finn graft, junior accountant bookkeeper ior fusion and cliff ctomy at L4-L5. There is parama gnetic artifa ct from the pedicl e screws , junior accountant bookkeeper ior fusion hardwa re and interb finn [...] alcantara MD on 2023 7:09 AM [email or web address] [facility] [address], [address], 01/04/2024 08:05:34 12/16/19 24 12/15/2023 CT, lumba r spine , w/o contr ast [address] [address] Patiryan t Name: TAY lozada : 952 Patiryan t [facility] Provid er: NOEL BARFIELD EXAM DATE: [...] prior discec vivi, interb finn graft, junior accountant bookkeeper ior fusion and cliff ctomy at L4-L5. There is beam harden ing artifa ct from the pedicl e screws , junior accountant bookkeeper ior fusion hardwa re and interb finn spacer . There is no eviden ce of loosen ing of the hardwa re or hardwa re failur e. There is mild levocu rvatur e from L1 throug h L3 and mild dextro curvat ure from L3 throug h L5. There is minima l junior accountant bookkeeper ior listhe sis of L1 on L2 [...] is bridgi ng bone in the junior accountant bookkeeper ior elemen ts. There is severe left [...] Taylor alcantara MD on 2023 7:[email or web address] [facility] [address], [address], 01/04/2024 08:05:33 Result Notes None recorded. Problems No Known Problems Procedures Surgical History Date Name Laterality Status Provider Name and Address Organization Details Recorded Time 04/11/19 25 Biopsy Skin Lesion; Tangential completed [facility] 04/11/2024 14:41:10 04/11/19 25 Injection, Intralesional completed DUGLSA BASURTO MD [address] [place] [address], [address], [facility] 04/11/2024 18:30:27 04/11/19 25 Destruction Premalignant Lesion(s) completed [facility] 04/11/2024 14:44:27 01/29/20 23 Lumbar Epidural Steroid Injection - Parth completed PERI CANTOR MD [address] [place] [address], [address], [facility] 01/28/2023 14:14:59 09/10/19 23 Cervical MBB 2 level - Parth completed PERI CANTOR MD [address] [place] [address], [address], [facility] 09/09/2022 16:11:18 08/16/19 23 Cervical MBB 2 level - Parth completed PERI CANTOR MD [address] [place], [address], [facility] 08/15/2022 15:23:46 05/04/19 23 Back Surgery completed Alana Streeter [facility] 07/16/2022 08:57:41 04/30/19 18 Shave Lesion; trunk, arm, leg completed MARIA DEL ROSARIO ODOM MD [address] [place] [address], [address], [facility] 04/30/2017 22:32:02 04/30/19 18 Destruction BN Lesions completed Aylin Toussaint [facility] 04/29/2017 08:43:13 Orthopedic Surgery completed Balta Pérez [facility] 11/03/2016 13:55:36 Imaging Results Imaging Date Name Status LastModified by Organiz ation Details LastModified Time 01/15/2023 MRI, lumbar spine, w/wo contrast completed [email or web address] [place] [address], [address], 01/23/2023 16:11:40 12/15/2023 MRI, cervical spine, w/o contrast completed [address], [address], 01/27/2024 16:57:41 12/15/2023 MRI, lumbar spine, w/o contrast completed [address], [address], 01/04/2024 08:05:34 12/15/2023 CT, lumbar spine, w/o contrast completed [address], [address], 01/04/2024 08:05:33 Procedure Notes None recorded. Medical Equipment None Reported. Allergies Allergen ID Allergen Name Allergen Category Reaction Reaction Severity Criticality Documentation Date Start Date Code Code System Note Provider Name and Address Organization Details Recorded Time 194101 lisinopri l medicatio n facial swelling Not available Not available 07/16/2022 29588 RxNorm Alana [facility]eter [facility] [...] Updated DateTime 3 185.42 cm 33 kg/m2 213886. 09 g 97.5 [degF] 95 % 95 % 74 /min 120 mm[Hg] 84 mm[Hg] Bronson Rodriguez [facility] 3 13:39:07 Date Recorded Body height Body mass index (BMI) Body weight Provider Name and Address Organization Details Last Updated DateTime 05/11/2023 185.42 cm 32.3 kg/m2 734897.13 g Lissett Vaca [facility] 05/11/2023 12:12:05 Date Recorded Body height Body mass index (BMI) Body weight Systolic blood pressure Diastolic blood pressure Provider Name and Address Organization Details Last Updated DateTime 11/23/2023 185.42 cm 32.3 kg/m2 012759.1 3 g 120 mm[Hg] 82 mm[Hg] Dalila Lozada [facility] 09:06:44 Social History Question Answer Notes LastModified by Organizat ion Details LastModified Time Tobacco Smoking Status Current Some Day [facility] 11/03/2016 13:55:22 How Much Tobacco Do You Chew? None [email or web address] Information not available 07/30/2020 Marital Status [email or web address] Informatio n not available 07/30/2020 What Was The Date Of Your Most Recent Tobacco Screening? 12/07/2017 Information n ot available 04/05/2019 How Much Tobacco Do You Smoke? No [email or web address] Information not available 07/16/2022 Sex: Male Functional Status Question Answer Note LastModified by Organizat ion Details LastModified Time Do you or have you ever used any other forms of tobacco or nicotine? No [email or web address] Information not available 07/16/2022 What is your level of alcohol consumption? Occasional [email or web address] Information not available 07/30/2020 Are you currently employed? No [email or web address] Information not available 07/16/2022 Do you or have you ever used e-cigarettes or vape? Never used electronic cigarettes [email or web address] Information not available 07/30/2020 What is your exercise level? Heavy [email or web address] Information not available 07/16/2022 Mental Status None recorded. Family History Relationship Description Onset Age of this Age Resolved Age Notes LastModified by Organization Details LastModified Time Father Heart disease [email or web address] Not available 07/16 08:46:24 Brother Heart disease Not available 07/16 08:46:24 Paternal Grandfather Heart disease [email or web address] Not available 07/16 08:46:35 Medical History Condition [...] N Immune System Disorder N Heart Attack (AK) Y Other Skin Condition N Mental Illness [...] SNOMED-CT Code Diagnosis ICD10 Code Diagnosis Note [id number] BENJAMIN PENDLETON MD [facility] [address] [place] [address] 11/03/2016 13:45:25 11/03/2016 16:50:35 Knee pain 45544471 M25.562 Mr Thomas has a fmeniscus root tear and early medial compartmen t overload. I recommend restricted weight bearing and a course of NSAIDs. [id number] BENJAMIN PENDLETON MD [facility] [address] [place] [address] 11/17/2016 09:18:10 12/15/2016 07:32:42 Knee pain 91051483 M25.562 Mr Thomas has a meniscus root tear and early medial compartmen t overload. I recommend restricted weight bearing, weight loss and wean from diclofenac . 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 I recommend activity modificati on and an exercise program. [id number] VLAD LEPE MD [facility] [address] [place] [address] 07/30/2020 10:31:55 07/30/2020 11:24:51 Ureteric stone 70036865 N20.[address] scan with the findings as above. Plan as above. [id number] AREN BARFIELD MD NEUROSURG [facility] [address] 0 05/19/2022 09:50:13 06/03/2022 04:46:23 [id number] AREN BARFIELD MD SURGERY SCHEDULE [address] [place] [address] 05/23/2022 09:05:55 05/23/2022 10:51:10 [id number] AREN BARFIELD MD NEUROSURG [facility] [address] [place] [address] 06/09/2022 08:55:00 06/10/2022 04:47:18 Postoperative care 216551358 Z48.89 [id number] PERI CANTOR MD PAIN MEDICINE [address] [place] [address] 07/16/2022 08:33:20 07/16/2022 16:07:09 Displacement of cervical intervertebral disc without myelopathy 36392794 M50.20 Degenerati on of cervical intervertebral disc 01313717 M50.30 Cervical spondylosis 387 104660 M47.812 [id number] ANY KILPATRICK PA-C NEUROSURG [facility] [address] [place] [address] 09/25/2022 13:04:15 09/26/2022 04:37:05 Postoperative care 334180555 Z48.89 [id number] PERI CANTOR MD [facility] PROFESSIO NAL CHARGES [address] [place] [address] [address] [place] [address] 08/15/2022 13:40:34 08/15/2022 15:57:04 Cervical spondylosis 647480639 M47.812 [id number] PERI CANTOR MD [facility] PROFESSIO NAL CHARGES [address] [place] [address] [address] [place] [address] 09/09/2022 14:42:39 09/09/2022 16:28:31 Cervical spondylosis 223770247 M47.812 [id number] SUMMER GONZALEZ, MRI SUPERVISOR NEUROSURG [facility] [address] [place] [address] 12/18/2022 12:45:42 12/19/2022 04:41:53 Lumbar radiculopathy 549791144 M54.16 Lumbar spondylosis 79283 0009 M47.896 History of lumbar fusion 1686908156 9106 Z98.1 [id number] PERI CANTOR MD PAIN MEDICINE [address] [place] [address] 1 01/28/2023 13:19:54 01/28/2023 16:07:52 Degeneration of lumbar intervertebral disc 75646470 M51.36 Lumbar radiculopathy 128 909012 M54.16 [id number] PERI CANTOR MD [facility] PROFESSIO NAL CHARGES [address] [place] [address] [address] [place] [address] 1 01/28/2023 14:06:41 01/28/2023 14:29:56 Lumbar radiculopathy 724568654 M54.16 [id number] MD [facility] [address] 0 05/11/2023 11:50:55 05/11/2023 13:08:17 Urolithiasis 98455302 N20.9 Plan as above will arrange for bilateral ureterosco py and laser of stones possible stent placement [id number] AREN BARFIELD MD SURGERY SCHEDULE [address] [place] [address] 06/16/2023 08:07:40 06/18/2023 09:19:49 [id number] LUCHO ANN PA-C NEUROSURG [facility] [address] [facility] [address] [facility] [address] [place] [address] 11/23/2023 09:02:39 11/24/2023 04:46:06 Lumbar radiculopathy 780564251 M54.16 Cervical radiculopathy 88380050 M54.12 Low back pain 452482887 M54.50 [id number] DUGLAS BASURTO MD [address] [place] [address] 04/11/2024 13:49:58 04/11/2024 16:09:51 Solar lentigo 47582324 L81.4 Benign Reassuranc eRecommend ed sun protective clothing and a mineral based sunscreen 30 SPF or higher lotion OTC daily Raised ebenezer orrheic keratosis 1068779080 26950 L82.1 Benign Reassuranc e Hemangioma 793876778 D18 .00 Benign Reassuranc e Multiple b enign melanocytic nevi 696930418 D22.9 Benign Reassuranc e History of squamous cell carcinoma of skin 280089362 Z85.828 Well-heale d scar History of Malignant melanoma 982582080 Z85.89 Well-heale d scar Actinic keratosis 635474 007 L57.0 Education then treated with LN; pt tolerated well advised pt what to expect with freezing Cyst of skin 196809511 L 72.9 Injected with kenalog 2mg/cc, total of 0.1cc injectedND C#: [id number] #:[id number] xp: 05/2025 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 90245912 D48.5 A.) Right proximal thigh r/o lentigo [...] Name 05/19/2022 1 [place] Tay Thomas [id number] Tay Thomas 05/19/2022 1 [place] [id number] Tay Thomas [id number] Tay Thomas 07/30/2020 1 [place] [id number] Kelsie Thomas [id number] Tay Thomas 05/19/2022 1 [place] [id number] Tay Thomas [id number] Tay Thomas 06/06/2024 1 [place] Tay Thomas [id number] Tay Thomas 06/15/2024 2 [employer]ARP (MEDICARE SUPPLEMENT) Tay Thomas [id number] Tay Thomas Notes Date Note Type Note [...] by Dr. Barfield); fusion Previous Injections:JOSE (10/2021 @[facility] Dr. Day); helped temporarily Previous PT:none Previous Outpatient Physical Therapist:none PERI CANTOR MD [address] [place] [address], [address], [facility] 01/28/2023 13:59:51 05/11/2023 text/html Patient is here last seen 3 years ago following urolithiasis. Over the weekend he had acute onset of left flank pain. He was found to have a 5 mm stone at the left ureterovesical junction. CT scan was at [facility] emergency room. Additionally had a 10 mm stone in his left kidney and additional smaller stones. On the right he had a 7 mm renal stone nonobstructing. We discussed proceeding with ureteroscopic intervention. We discussed the possibility of perioperative ureteral stent placement. He understands wished to proceed to soon as possible. VLAD LEPE MD [address] [place], [address], [facility] 05/11/2023 13:14:06 11/23/2023 [...] in clinic today. LUCHO ANN PA-C [address] [place], [address], [facility] 11/23/2023 09:43:39 04/11/2024 [...] history of malignant melanoma. DUGLAS BASURTO MD [address] [place] [address], [address], [facility] 04/11/2024 18:33:13
[2024-07-06 11:00] VITALS: BP 138/54; PULSE 69; RESP 20; TEMP 36.6; O2SAT 98
[2024-07-06] MEDS: SODIUM CHLORIDE 0.9% 10ML FLUSH SYRINGE 10 ML IV (11:00)
[2024-07-06] MEDS: SODIUM CHLORIDE 0.9% 50ML BAG 50 ML IV (11:00)
[2024-07-06] MEDS: DAPTOmycin 750 MG in 0.9 % SODIUM CHLORIDE 50 ML 100 MG IV (11:02)
[2024-07-06] MEDS: NEOSPORIN OINTMENT 0.9GM UDP 1 EACH TP (11:46)
[2024-07-06 11:55] VITALS: BP 127/62; PULSE 67; RESP 20; O2SAT 98
== END 2024-07-06 11:55 | disposition home or self-care (01) ==
LOC: INF 10:54
PROVIDERS: PCP Nurse Practitioner Family; Visit Provider Nurse Practitioner Family
DX: N20.0 Calculus of kidney (principal)
CPT/HCPCS: 96365; J0878

== ENCOUNTER 2024-08-08 10:24 | Outpatient (POV) | payer MEDICARE, SELFPAY ==
--- OUTSIDE RECORDS SUMMARY | 2024-06-08 15:46 | XMS_ITS | Encounter Summary ---
Author Organization [employer] Address [address] [place] [address] Care Team Providers Care Community Organization Worker Name Role Phone Yee Estrada Primary Care Provider Unavail able Reason for Visit * Auth/Cert (Routine) Specialty Diagnoses / Procedures Referred By Contac t Referred To Contact Diagnoses Kidney stone KIDNEY STONE [facility] [address] [place] [address] Phone: tel: fax: [facility] [address] [place] [address] Phone: tel: fax: Referral ID Status Reason Start Date Expiration Date Visits Re quested Visits Authorized [id number] 1 1 Encounter Details Date Type Department Care Team (Late st Contact Info) Description 06/08/2024 3:46 PM EDT - 06/10/2024 11:20 AM EDT Hospital Encounter [facility] [address] [place] [address] Shannan Andrea MD [address] [facility] [address] [place] [address] Discharge Disposition: Home or Self Care Social History Tobacco Use Types Packs/Day Years Used Date Smoking Tobacco: Never Passive Smoke Exposure: Never Smokeless Tobacco: Never Alcohol Use Standard Drinks/Week Comments Yes 2 (1 standard drink = 0.6 oz pur e alcohol) Utilities Answer Date Recorded In the past 12 months, has t he electric, gas, oil, or water company threatened to shut off services in your home? No 06/08/2024 Interpersonal Safety Answer Date Record ed How often does anyone, pedro smith family and friends, physically hurt you? Never 06/08/2024 How often does anyone, pedro smith family and friends, insult or talk down to you? Never 06/08/2024 How often does anyone, pedro smith family and friends, threaten you with harm? Never 06/08/2024 How often does anyone, pedro smith family and friends, scream or curse at you? Never 06/08/2024 Housing Stability Answer Date Recorded What is your living situation today? I have a [facility] place to live 06/08/[address] you li ve. Do you have problems with any of the following? None of the above 06/08/2024 Food Insecurity Answer Date Recorded Within the past 12 months, y ou worried that your food would run out before you got money to buy more. Never true 06/08/2024 Within the past 12 months, t he food you bought just didn't last and you didn't have money to get more. Never true 06/08/2024 Transportation Needs Answer Date Record ed In the past 12 months, has l ack of reliable transportation kept you from medical appointments, meetings, work or from getting things needed for daily living? No 06/08/2024 Financial Resource Strain Answer Date R ecorded How hard is it for you to pa y for the very basics like food, housing, medical care, and heating? Would you say it is: Not hard at all 06/08/2024 Employment Answer Date Recorded Do you want help finding or keeping work or a job? I do not need or want help 06/08/2024 Family and Community Support Answer Philip e Recorded If for any reason you need h elp with day-to-day activities such as bathing, preparing meals, shopping, managing finances, etc., do you get the help you need? I don't need any help 06/08/2024 Feeling Lonely or Isolated 0 06/08 Educational Attainment Answer Date Kiko rded Do you speak a language other than Cam[place]onian at [facility]? No 06/08/2024 Do you want help with school or training? For example, starting or completing job training or getting a high school diploma, GED or equivalent. No 06/08/2024 Physical Activity Answer Date Recorded Number of minutes of exercise per week 150 06/08/2024 Alcohol Use Answer Date Recorded 5 or More Drinks Per Day Past 12 Months 1 06/08/2024 Depression Answer Date Recorded Calculation of above two rows 0 Stress Answer Date Recorded Stress means a situation in which a person feels tense, restless, nervous, or anxious, or is unable to sleep at night because his or her mind is troubled all the time. Do you feel this kind of stress these days? Not at all 06/08/2024 Disabilities Answer Date Recorded Because of a physical, menta l, or emotional condition, do you have serious difficulty concentrating, remembering, or making decisions? (5 years or older) No 06/08/2024 Because of a physical, menta l, or emotional condition, do you have difficulty doing errands alone such as visiting a doctor's office or shopping? (15 years or older) No 06/08/2024 Substance Use Answer Date Recorded How many times in the past y ear have you used prescription drugs for non-medical reasons? Never 06/08/2024 How many times in the past year have you used [place] legal drugs? Never 06/08/2024 Sex and Gender Information Value Date Recorded Sex Assigned at Not on file Legal Sex Male 4:10 PM CDT Gender Identity Not on file Sexual Orientation Straight 05/21/2022 1: 57 PM CDT documented as of this encounter Last Filed Vital Signs Vital Sign Reading Time Taken Comments Blood Pressure 130/89 06/10/2024 11:00 AM EDT Pulse 58 06/10/2024 11:00 AM EDT Temperature 36.2 C (97.2 F) 06/10/2024 11:00 AM EDT Respiratory Rate 18 06/10/2024 11:0 0 AM EDT Oxygen Saturation 96% 06/10/2024 11: 00 AM EDT Inhaled Oxygen Concentration - - Weight 111.1 kg (244 lb 14.9 oz) 06/08/2024 6:46 PM EDT Height 185.4 cm (6' 0.99 ) 06/08/2024 6:46 PM ED T Body Mass Index 32.32 06/08/2024 6:46 PM EDT documented in this encounter Discharge Summaries * Shannan Andrea MD - 06/10/2024 11:20 AM EDT DISCHARGE SUMMARY [facility] Patient Name: Jose G Germain : 1955 Date of Admission: 06/08/2024 Date of Discharge: 06/10/2024 11:20 AM Primary Care Physician: Lolita Belcher Consultations: Dr. Kareem Young, urology Discharge Diagnoses: Right ureteral stone Right ureteral stent placement Shockwave lithotripsy of Right ureteral stone Acute right pyelonephritis Right hydronephrosis History of bilateral ureteral and kidney stones status post multiple ureteral stent placement and subsequent removal Reason for Admission: Jose G Germain is a 68 y.o. male presenting with a past medical history of coronary artery disease with history of stents, and long extensive history of bilateral ureteral and kidneys stones with history of ureteral stent placement and subsequent removal bilaterally. Patient presented to [facility] ER on 06/08/2024 and transferred to [facility] on 06/08/2024. Patient reported that he has been feeling well for 1 week. He started to have right flank pain got worse over the past 2 days. He went to the ER at [facility] and he underwent CT scan of the abdomen and pelvis which showed right hydro nephrosis and right ureterolysis 10. Patient was given IV Dilaudid. Patientwas transferred to [facility] for urology evaluation Hospital Course: The patient was transferred to our facility with Right mid ureteral stone Patient underwent cystoscopy and right ureteral stone manipulation and right ureteral stent placement with right side shockwave lithotripsy of left ureteral stone Surgery was done by Dr. Kareem Young Patient did well. Patient was adequately rehydrated. Patient was placed on IV antibiotics and was discharged on oral antibiotics Patient was initially given 2 g of IV ceftriaxone and subsequently placed on cefepime 2 g IV every 8 hours Patient also was placed on Pyridium and gentle IV hydration during this hospital stay Dr. Kareem Young appreciatively wrote prescription for nitrofurantoin 1 tablet twice daily for 15days number 30 tablets also he wrote prescription for hydrocodone 7.06/3024 mg 1 tablet as needed number 20 tablets for postoperative right sided flank pain Patient was cleared for discharge by urology Patient is hemodynamically stable I discussed with RN at the bedside during evaluation Disposition: Patient was discharged home Discharge condition: Hemodynamically stable Date of Surgery/Procedure: 06/09/2024 Post-Procedure Diagnosis: Right mid ureteral stone Procedure Performed on 06/09/24: Dr. Kareem Young cystoscopy with right ureteral stone manipulation and ureteral stent placement with right-sided shockwave lithotripsy of ureteral stone Studies Performed: Admission on 06/08/2024 Component Date Value Ref Range Status Sodium 06/08/2024 141 136 - 146 meq/L Final Potassium 06/08/2024 4.6 3.5 - 5.1 meq/L Final Chloride 06/08/2024 109 102 - 112 meq/L Final CO2 06/08/2024 27 21 - 32 meq/L Final Anion Gap 06/08/2024 10 9 - 20 Final BUN 06/08/2024 18 7 - 22 mg/dL Final Creatinine 06/08/2024 1.15 0.70 - 1.30 mg/dL Final BUN/Creatinine 06/08/2024 16 8 - 20 Final Glucose 06/08/2024 94 74 - 106 mg/dL Final Calcium 06/08/2024 8.4 (L) 8.5 - 10.1 mg/dL Final Osmolality Calc 06/08/2024 282.9 mOsm/kg Final eGFR (mL/min/1.73m2) 06/08/2024 >60 >=60 mL/min/1.73m2 Final WBC 06/08/2024 9.1 3.9 - 10.0 K/??L Final RBC 06/08/2024 4.13 (L) 4.63 - 6.08 M/??L Final Hemoglobin 06/08/2024 12.6 11.2 - 15.7 GM/DL Final Hematocrit 06/08/2024 38.6 (L) 40.1 - 51.0 % Final MCV 06/08/2024 94 79 - 95 fL Final MCH 06/08/2024 30.5 25.6 - 32.2 pg Final MCHC 06/08/2024 32.6 32.3 - 36.5 GM/DL Final RDW 06/08/2024 13.2 11.6 - 14.4 % Final Platelets 06/08/2024 214 163 - 369 K/CU MM Final MPV 06/08/2024 9.7 9.4 - 12.4 fL Final nRBC 06/08/2024 0 (L) 1 - 5 /100 WBC Final aPTT 06/08/2024 28.2 22.0 - 32.0 seconds Final Protime 06/08/2024 10.8 9.0 - 12.0 seconds Final INR 06/08/2024 0.99 0.80 - 1.10 Final FL C-ARM < 1 HOUR Narrative: FLUORO TIME PROCEDURE: Fluoroscopy in the operating room. HISTORY: Back pain . FINDINGS: Fluoroscopy time was provided by the radiology department for the clinical service. One image was obtained for lumbar spine surgery. Fluoroscopy exposure time: 0.2 minutes. Radiation exposure in reference to air kerma: 12 mGy Impression: See above. Please see the operative report. Radiology Results (last 3 days) Procedure Component Value Units Date/Time XR KUB PORTABLE [[id number]] Collected: 06/09/24 145 Order Status: Completed Updated: 06/09/241457 Narrative: KUB HISTORY: Nephrolithiasis. COMPARISON: None. FINDINGS: A single view of the abdomen with a coned-down of the pelvis demonstrates a nonspecific bowel gas pattern. No definite abnormal calcifications are identified. There are multiple right upper quadrant surgical clips consistent with cholecystectomy. Lower lumbar spinal fusion hardware is noted. Impression: Nonspecific bowel gas pattern. Images reviewed, interpreted, and dictated by Dr. Brigette Sheikh. Transcribed by Rosalie Ortega PA-C. XR chest AP portable [[id number]] Collected: 06/09/24 015 Order Status: Completed Updated: 06/09/24153 Narrative: PORTABLE CHEST HISTORY: Cough, smoker. COMPARISON: 05/15/2022. FINDINGS: A single portable radiograph of the chest was performed. The heart is normal in size. The lungs are well expanded. There is underlying chronic interstitial change. There is no edema or infiltrate. There are no effusions. Impression: No acute cardiopulmonary process. Images reviewed, interpreted, dictated and electronically signed by Devon Walker MD Voice director of science technology (Power Scribe) is used for the dictation of this note and sound-alike words might be erroneously placed despite reviewing this note for accuracy. Errors in dictation may reflect use of voice recognition software and not all errors in director of science may have been detected prior to signing. Procedures Performed: Discharge Medications: Your medication list START taking these medications Instructions Comments Quantity Refills HYDROcodone-acetaminophen 7.5-325 mg per tablet Commonly known as: NORCO Take 1 tablet by mouth every 6 (six) hours as needed for up to 10 days. Max Daily Amount: 4 tablets 20 tablet 0 nitrofurantoin (macrocrystal-monohydrate) 100 MG capsule Commonly known as: MACROBID Take 1 capsule (100 mg total) by mouth 2 (two) times daily with breakfast and dinner. 30 capsule 0 CONTINUE taking these medications Instructions Comments Quantity Refills allopurinoL 300 MG tablet Commonly known as: ZYLOPRIM Take 1 tablet (300 mg total) by mouth daily. 0 aspirin 81 MG EC tablet Take 1 tablet (81 mg total) by mouth daily. 0 atorvastatin 10 MG tablet Commonly known as: LIPITOR Take 1 tablet (10 mg total) by mouth nightly. 0 levothyroxine 75 MCG tablet Commonly known as: SYNTHROID Take 1 tablet (75 mcg total) by mouth Every morning on an empty stomach. 0 metoprolol succinate 50 MG 24 hr tablet Commonly known as: TOPROL-XL Take 12.5 mg by mouth daily. 0 prasugreL HCl 10 mg Tab tablet Commonly known as: EFFIENT Take 1 tablet (10 mg total) by mouth daily. 0 pregabalin 100 MG capsule Commonly known as: LYRICA Take 1 capsule (100 mg total) by mouth 3 (three) times daily. Max Daily Amount: 300 mg 0 sildenafiL 25 MG tablet Commonly known as: VIAGRA Take 1 tablet (25 mg total) by mouth as needed for erectile dysfunction. 0 Where to Get Your Medications These medications were sent to [facility] - [place] - [address] [address] [address] [facility] [address] HYDROcodone-acetaminophen 7.5-325 mg per tablet nitrofurantoin (macrocrystal-monohydrate) 100 MG capsule Physical Exam Constitutional: Appearance: Normal appearance. HENT: Head: Normocephalic and atraumatic. Mouth/Throat: Pharynx: Oropharynx is clear. Eyes: Conjunctiva/sclera: Conjunctivae normal. Cardiovascular: Rate and Rhythm: Normal rate and regular rhythm. Pulses: Normal pulses. Heart sounds: Normal heart sounds. Pulmonary: Effort: Pulmonary effort is normal. Breath sounds: Normal breath sounds. Abdominal: General: Abdomen is flat. Bowel sounds are normal. Palpations: Abdomen is soft. Musculoskeletal: General: Normal range of motion. Cervical back: Normal range of motion and neck supple. Skin: General: Skin is warm. Neurological: General: No focal deficit present. Mental Status: He is alert and oriented to person, place, and time. Psychiatric: Mood and Affect: Mood normal. Behavior: Behavior normal. Thought Content: Thought content normal. Discharge Instructions Discharge Diet: Heart healthy diet Discharge Activity: As tolerated Discharge Follow UP: Contact information for follow-up Kareem Young MD Specialty: Urology [address] [place] [address] [address] [place] [address] Next Steps: Follow up Instructions: Follow-up Thursday with ureteral stent removal. The office will be reaching out to you today with appt information. Lolita Belcher [facility] Primary Care [address] [place] [address], [address] [address] Next Steps: Go on 06/23/2024 Instructions: Appt time is 11 am. Time Spent: 33 minutes documented in this encounter Discharge Instructions * Attachments The following attachments cannot be sent through Care Everywhere. * ESWL for Kidney Stones Care After (Cameroonian) * Ureteral Stent Implantation Care After (Cameroonian) documented in this encounter Medications at Time of Discharge allopurinoL (ZYLOPRIM) 300 MG tablet Take 1 tablet (300 mg total) by mouth daily. aspirin 81 MG EC tablet Take 1 tablet (81 mg total) by mouth daily. atorvastatin (LIPITOR) 10 MG tablet Take 1 tablet (10 mg total) by mouth nightly. levothyroxine (SYNTHROID, LEVOTHROID) 75 MCG tablet Take 1 tablet (75 mcg total) by mouth Every morning on an empty stomach. metoprolol succinate (TOPROL-XL) 50 MG 24 hr tablet Take 12.5 mg by mouth daily. nitrofurantoin, macrocrystal-mon ohydrate, (MACROBID) 100 MG capsule Take 1 capsule (100 mg total) by mouth 2 (two) times daily with breakfast and dinner. 30 capsule 06/09/2024 prasugreL HCl (EFFIENT) 10 mg tab tablet Take 1 tablet (10 mg total) by mouth daily. pregabalin (LYRICA) 100 MG capsule Take 1 capsule (100 mg total) by mouth 3 (three) times daily. Max Daily Amount: 300 mg sildenafiL (VIAGRA) 25 MG tablet Take 1 tablet (25 mg total) by mouth as needed for erectile dysfunction. HYDROcodone-acet aminophen (NORCO) 7.5-325 mg per tablet Take 1 tablet by mouth every 6 (six) hours as needed for up to 10 days. Max Daily Amount: 4 tablets 20 tablet 06/09/2024 documented as of this encounter Progress Notes * Abdiel Mandel RN - 06/10/2024 11:20 AM EDT Pt voiced understanding of D/C instructions, new meds, and follow up on Thursday to take stent out. Pt walked off floor under own power with spouse. * Shannan Andrea MD - 06/09/2024 10:23 AM EDT HOSPITALIST PROGRESS NOTE Patient: Jose G Germain Date: 06/09/2024 Subjective Date of Service: 06/09/2024 Patient is seen and evaluated No acute events overnight. Review of Systems Constitutional: No fevers, chills Eye: No blurry vision, no discharge HEENT: No sore throat, no nasal congestion Respiratory: No cough, no shortness of breath Cardiovascular: No Chest pain, no palpitations Gastrointestinal: No nausea, vomiting, diarrhea, constipation Genitourinary: No hematuria, no dysuria Barrett/Lymph: Negative for bruising tendency, no nosebleeds Endocrine: Negative for excessive thirst, no excessive urination Musculoskeletal: No back pain, no leg pain Integumentary: No rash, no pruritus Neurologic: No focal weakness, no numbness Psychiatric: No anxiety, depression Objective Vitals: Temp: [97.2 ??F (36.2 ??C)-98.2 ??F (36.8 ??C)] 97.5 ??F (36.4 ??C) Pulse: [52-60] 53 Resp: [16-21] 16 BP: (104-139)/(57-85) 139/84 Intake/Output: Intake/Output Summary (Last 24 hours) at 06/09/20241922 Last data filed at 06/09/2024 1800 Gross per 24 hour Intake 2585 ml Output 1085 ml Net 1500 ml Physical exam: General: Alert and oriented, no acute distress Eye: EOMI, normal conjunctiva HENT: Normocephalic, atraumatic Neck: no carotid bruits, no JVD Lungs: Clear to auscultation, non-labored respiration Heart: Normal rate, regular rhythm, no murmur Abdomen: Soft, non-tender, non-distended, normal bowel sounds Musculoskeletal: Normal range of motion and strength, no tenderness or swelling Skin: Skin is warm, dry, no rashes or lesions Psychiatric: Cooperative, appropriate mood and affect Neurologic: Awake, alert, and oriented X3, no apparent focal deficits Labs: Results for orders placed or performed during the hospital encounter of 06/08/24 (from the past 24 hours) Basic Metabolic Panel Status: Abnormal Collection Time: 06/09/24 5:28 AM Result Value Ref Range Sodium 141 136 - 146 meq/L Potassium 4.1 3.5 - 5.1 meq/L Chloride 111 102 - 112 meq/L CO2 26 21 - 32 meq/L Anion Gap 8 (L) 9 - 20 BUN 18 7 - 22 mg/dL Creatinine 0.97 0.70 - 1.30 mg/dL BUN/Creatinine 19 8 - 20 Glucose 107 (H) 74 - 106 mg/dL Calcium 8.3 (L) 8.5 - 10.1 mg/dL Osmolality Calc 283.6 mOsm/kg eGFR (mL/min/1.73m2) >60 >=60 mL/min/1.73m2 Radiology: Radiology Results (last 7 days) Procedure Component Value Units Date/Time XR KUB PORTABLE [[id number]] Collected: 06/09/24 1454 Order Status: Completed Updated: 06/09/24 1458 Narrative: KUB HISTORY: Nephrolithiasis. COMPARISON: None. FINDINGS: A single view of the abdomen with a coned-down of the pelvis demonstrates a nonspecific bowel gas pattern. No definite abnormal calcifications are identified. There are multiple right upper quadrant surgical clips consistent with cholecystectomy. Lower lumbar spinal fusion hardware is noted. Impression: Nonspecific bowel gas pattern. Images reviewed, interpreted, and dictated by Dr. Brigette Sheikh. Transcribed by Rosalie Ortega PA-C. XR chest AP portable [[id number]] Collected: 06/09/24 0151 Order Status: Completed Updated: 06/09/24 0154 Narrative: PORTABLE CHEST HISTORY: Cough, smoker. COMPARISON: 05/15/2022. FINDINGS: A single portable radiograph of the chest was performed. The heart is normal in size. The lungs are well expanded. There is underlying chronic interstitial change. There is no edema or infiltrate. There are no effusions. Impression: No acute cardiopulmonary process. Images reviewed, interpreted, dictated and electronically signed by Devon Walker MD Voice director of science technology (Power [employer]) is used for the dictation of this note and sound-alike words might be erroneously placed despite reviewing this note for accuracy. Errors in dictation may reflect use of voice recognition software and not all errors in director of science may have been detected prior to signing. Medications: Scheduled Meds: atorvastatin 10 mg oral Every Night 10 mg at 06/08/242043 cefePIME 1 g intravenous Q8H 1 g at 06/09/24 1327 levothyroxine 75 mcg oral Daily pantoprazole 40 mg oral Daily 40 mg at 06/08/24 1628 phenazopyridine 95 mg oral TID 95 mg at 06/08/242043 pregabalin 100 mg oral TID 100 mg at 06/08/242043 Continuous Infusions: Current Facility-Administered Medications Medication Dose Route Frequency Provider Last Rate Last Admin acetaminophen (TYLENOL) tablet 650 mg 650 mg oral Q4H PRN Shannan Andrea MD 650 mg at 06/08/242043 atorvastatin (LIPITOR) tablet 10 mg 10 mg oral Every Night Shannan Andrea MD 10 mg at 06/08/242043 cefepime (MAXIPIME) IVPB 1 g in dextrose 5 % 50 mL (premix) Duplex 1 g intravenous Q8H Hossam Zohary, MD 16.7 mL/hr at 06/09/24 1327 1 g at 06/09/24 1327 HYDROcodone-acetaminophen (NORCO) 5-325 mg per tablet 1 tablet 1 tablet oral Q4H PRN Shannan Andrea MD levothyroxine (SYNTHROID) tablet 75 mcg 75 mcg oral Daily Shannan Andrea MD melatonin tablet 3 mg 3 mg oral Every Night PRN Shannan Andrea MD 3 mg at 06/08/244 morphine injection 2 mg 2 mg intravenous Q4H PRN Shannan Andrea MD 2 mg at 06/09/24 1111 ondansetron (ZOFRAN) injection 4 mg 4 mg intravenous Q4H PRN Shannan Andrea MD 4 mg at 06/09/24 1458 ondansetron (ZOFRAN-ODT) disintegrating tablet 4 mg 4 mg oral Q4H PRN Shannan Andrea MD pantoprazole (PROTONIX) EC tablet 40 mg 40 mg oral Daily Shannan Andrea MD 40 mg at 06/08/24 1628 phenazopyridine (PYRIDIUM) tablet 95 mg 95 mg oral TID Shannan Andrea MD 95 mg at 06/08/242043 pregabalin (LYRICA) capsule 100 mg 100 mg oral TID Shannan Andrea MD 100 mg at 06/08/242043 PRN Meds: @MEDSPRN@ Assessment and Plan = Acute right pyelonephritis Patient had leukocytosis at outside facility I ordered one-time IV ceftriaxone 2 g then I ordered to start cefepime 2 g IV every 8 hours Pyridium 95 mg 3 times a day Gentle IV hydration = Right hydronephrosis ER medical provider discussed with urology I placed a consult to urology = Right ureteral stone N.p.o. after midnight Gentle IV hydration = History of bilateral ureteral and kidney stones status post multiple ureteral stent placement andsubsequent removal = Coronary artery disease with prior coronary stent Will temporarily hold prasugrel in anticipation for urology surgery = GI prophylaxis. I placed the patient on Protonix = DVT prophylaxis. I placed the patient on sequential compression device. No heparin or Lovenox at this time in anticipation for urologic surgery Diet: Orders Placed This Encounter Procedures Regular Diet Code Status: Current Code Status Full code Going to [place] Continue IV Cefepime I discussed with RN at bedside Disposition: home in 1-2 days TIME SPENT: 31 minutes Signed: Shannan Andrea MD [facility] Hospitalist 06/09/2024 documented in this encounter H&P Notes * Shannan Andrea MD - 06/08/2024 6:51 PM EDT ADMISSION HISTORY AND PHYSICAL DATE OF ADMISSION : 06/08/2024 PRIMARY CARE PROVIDER: YEE ESTRADA [ [facility] } UROLOGY: Dr. Kareem Young TRANSFERRING FACILITY: Presented to [facility] ER on 06/08/2024 and transferred to [facility] on 06/08/2024 History Of Present Illness Jose G Germain is a 68 y.o. male presenting with a past medical history of coronary artery disease with history of stents, and long extensive history of bilateral ureteral and kidneys stones with history of ureteral stent placement and subsequent removal bilaterally. Patient presented to [facility] ER on 06/08/2024 and transferred to [facility] on 06/08/2024. Patient reported that he has been feeling well for 1 week. He started to have right flank pain got worse over the past 1 to 2 days. He went to the ER at [facility] and he underwent CT scan of the abdomen and pelvis which showed right hydro nephrosis and right ureterolysis 10. Patient was given IV Dilaudid. Patient was transferred to [facility] for urology evaluation Past Medical History He has a past medical history of Hyperlipidemia, Kidney stones, Lumbar herniated disc (05/03/2022),Myocardial infarction (HCC), Skin cancer, and Thyroid cancer (HCC). He has no past medical history of Hypertension. Surgical History He has a past surgical history that includes Thyroidectomy, partial; Rotator cuff repair (Right); Rotator cuff repair (Left); LAMINECTOMY,P L I F BONE (Bilateral, 05/03/2022); Thyroidectomy; Cholecystectomy; Anterior fusion lumbar spine; skin cancer left leg; cystoscopy,ureteroscopy w/ laser lithotripsy (Left, 05/15/2023); and LAMINECTOMY,LUMBAR (Right, 06/09/2023). Social History He reports that he has never smoked. He has never been exposed to tobacco smoke. He has never used smokeless tobacco. He reports current alcohol use of about 2.0 standard drinks of alcohol per week. He reports that he does not use drugs. Family History His family history includes Heart disease in his brother, father, and paternal grandfather; Stroke in his brother. Allergies Gabapentin and Lisinopril Medications Current Outpatient Medications Medication Instructions allopurinoL (ZYLOPRIM) 300 mg, Daily aspirin 81 mg, Daily atorvastatin (LIPITOR) 10 mg, Every Night levothyroxine (SYNTHROID) 75 mcg, Every morning on an empty stomach metoprolol succinate (TOPROL-XL) 12.5 mg, Daily prasugreL HCl (EFFIENT) 10 mg, Daily pregabalin (LYRICA) 100 mg, 3 times daily sildenafiL (VIAGRA) 25 mg, As needed Review of Systems Review of Systems Constitutional: Negative for fever. HENT: Negative for sore throat. Eyes: Negative for visual disturbance. Respiratory: Negative for shortness of breath and wheezing. Cardiovascular: Negative for chest pain and palpitations. Gastrointestinal: Negative for constipation, diarrhea and vomiting. Endocrine: Negative for cold intolerance. Genitourinary: Positive for flank pain. Negative for urgency. Musculoskeletal: Negative for neck pain. Skin: Negative for pallor. Neurological: Negative for syncope and numbness. Psychiatric/Behavioral: Negative for confusion. Last Recorded Vitals Blood pressure 112/71, pulse 55, temperature 97.5 ??F (36.4 ??C), temperature source Oral, resp. rate 18, height 1.854 m (6' 0.99 ), weight 111.1 kg (244 lb 14.9 oz). Physical Exam HENT: Head: Normocephalic and atraumatic. Eyes: Conjunctiva/sclera: Conjunctivae normal. Cardiovascular: Rate and Rhythm: Normal rate and regular rhythm. Pulses: Normal pulses. Heart sounds: Normal heart sounds. Pulmonary: Effort: Pulmonary effort is normal. Breath sounds: Normal breath sounds. Abdominal: General: Abdomen is flat. Bowel sounds are normal. Palpations: Abdomen is soft. Musculoskeletal: Cervical back: Normal range of motion and neck supple. Skin: General: Skin is warm. Neurological: Mental Status: He is alert and oriented to person, place, and time. Mental status is at baseline. Psychiatric: Mood and Affect: Mood normal. Behavior: Behavior normal. Diagnostic Results Admission on 06/08/2024 Component Date Value Ref Range Status Sodium 06/08/2024 141 136 - 146 meq/L Final Potassium 06/08/2024 4.6 3.5 - 5.1 meq/L Final Chloride 06/08/2024 109 102 - 112 meq/L Final CO2 06/08/2024 27 21 - 32 meq/L Final Anion Gap 06/08/2024 10 9 - 20 Final BUN 06/08/2024 18 7 - 22 mg/dL Final Creatinine 06/08/2024 1.15 0.70 - 1.30 mg/dL Final BUN/Creatinine 06/08/2024 16 8 - 20 Final Glucose 06/08/2024 94 74 - 106 mg/dL Final Calcium 06/08/2024 8.4 (L) 8.5 - 10.1 mg/dL Final Osmolality Calc 06/08/2024 282.9 mOsm/kg Final eGFR (mL/min/1.73m2) 06/08/2024 >60 >=60 mL/min/1.73m2 Final WBC 06/08/2024 9.1 3.9 - 10.0 K/??L Final RBC 06/08/2024 4.13 (L) 4.63 - 6.08 M/??L Final Hemoglobin 06/08/2024 12.6 11.2 - 15.7 GM/DL Final Hematocrit 06/08/2024 38.6 (L) 40.1 - 51.0 % Final MCV 06/08/2024 94 79 - 95 fL Final MCH 06/08/2024 30.5 25.6 - 32.2 pg Final MCHC 06/08/2024 32.6 32.3 - 36.5 GM/DL Final RDW 06/08/2024 13.2 11.6 - 14.4 % Final Platelets 06/08/2024 214 163 - 369 K/CU MM Final MPV 06/08/2024 9.7 9.4 - 12.4 fL Final nRBC 06/08/2024 0 (L) 1 - 5 /100 WBC Final aPTT 06/08/2024 28.2 22.0 - 32.0 seconds Final Protime 06/08/2024 10.8 9.0 - 12.0 seconds Final INR 06/08/2024 0.99 0.80 - 1.10 Final FL C-ARM < 1 HOUR Narrative: FLUORO TIME PROCEDURE: Fluoroscopy in the operating room. HISTORY: Back pain . FINDINGS: Fluoroscopy time was provided by the radiology department for the clinical service. One image was obtained for lumbar spine surgery. Fluoroscopy exposure time: 0.2 minutes. Radiation exposure in reference to air kerma: 12 mGy Impression: See above. Please see the operative report. Images reviewed, interpreted, and dictated by Dr. Devon Walker. Transcribed by Helena Sanz PA-C. Assessment & Plan Principal Problem: Kidney stone = Acute right pyelonephritis Patient had leukocytosis at outside facility I ordered one-time IV ceftriaxone 2 g then I ordered to start cefepime 2 g IV every 8 hours Pyridium 95 mg 3 times a day Gentle IV hydration = Right hydronephrosis ER medical provider discussed with urology I placed a consult to urology = Right ureteral stone N.p.o. after midnight Gentle IV hydration = History of bilateral ureteral and kidney stones status post multiple ureteral stent placement andsubsequent removal = Coronary artery disease with prior coronary stent Will temporarily hold prasugrel in anticipation for urology surgery = GI prophylaxis. I placed the patient on Protonix = DVT prophylaxis. I placed the patient on sequential compression device. No heparin or Lovenox at this time in anticipation for urologic surgery I reviewed records imaging from outside facility I had lengthy discussion with the patient and his at the bedside regarding current condition further plans I discussed with RN at the bedside during evaluation I anticipate 2 midnights or greater inpatient hospital stay given the need for IV fluids IV antibiotics urologic surgery Time spent: 48 minutes Electronically signed by: Shannan Andrea MD, 06/08/2024 at 6:51 PM documented in this encounter Consult Notes * Kareem Young MD - 06/09/2024 10:02 AM EDT Urology Consult Note Reason for Consult: Right ureteral calculus Requesting MD: Chief Complaint: No chief complaint on file. History of Present Illness: Briefly, Jose G Germain is a 68 y.o. male, admitted on: 06/08/2024 3:46 PM. With history of urolithiasis presented to [facility] with right-sided flank pain. He was found to have a 9 mmstone mid right ureter with obstruction. Due to refractory pain he was transferred here for furtherintervention. We discussed proceeding with shockwave lithotripsy with possible ureteroscopy and laser if necessary. He may or may not require ureteral stent placement. He understands wished to proceed. Past Medical History: Past Medical History: Diagnosis Date Hyperlipidemia Kidney stones Lumbar herniated disc 05/03/2022 Myocardial infarction (HCC) Skin cancer Thyroid cancer (HCC) Past Surgical History: Past Surgical History: Procedure Laterality Date ANTERIOR FUSION LUMBAR SPINE CHOLECYSTECTOMY CYSTOSCOPY,URETEROSCOPY W/ LASER LITHOTRIPSY Left 05/15/2023 Procedure: (BILATERAL URETEROSCOPY, LASER LITHOTRIPSY, retrograde pyelogram); Surgeon: Kareem Young MD; Location: [facility]; Service: Urology; Laterality: Left; IN 0700 1HR(A) LAMINECTOMY,LUMBAR Right 06/09/2023 Procedure: (MIF RT L5-S1 DECOMPRESSION); Surgeon: Edson Barfield MD; Location: [facility] OR; Service: Neurosurgery; Laterality: Right; 1.5HRS(A) LAMINECTOMY,PLIF BONE Bilateral 05/03/2022 Procedure: FUSION, SPINE, LUMBAR, PLIF, WITH DISCECTOMY OR LAMINECTOMY; Surgeon: Edson Barfield MD; Location: [facility] OR; Service: Neurosurgery; Laterality: Bilateral; ROTATOR CUFF REPAIR Right ROTATOR CUFF REPAIR Left Cadaver bicep placed. skin cancer left leg THYROIDECTOMY THYROIDECTOMY, PARTIAL Allergies: Allergies Allergen Reactions Gabapentin Rash Lisinopril Anaphylaxis Medications: Prior to Admission Medications: Medications Prior to Admission Medication Sig Dispense Refill Last Dose/Taking allopurinoL (ZYLOPRIM) 300 MG tablet Take 1 tablet (300 mg total) by mouth daily. 06/08/2024 aspirin 81 MG EC tablet Take 1 tablet (81 mg total) by mouth daily. 06/08/2024 atorvastatin (LIPITOR) 10 MG tablet Take 1 tablet (10 mg total) by mouth nightly. 06/08/2024 levothyroxine (SYNTHROID, LEVOTHROID) 75 MCG tablet Take 1 tablet (75 mcg total) by mouth Every morning on an empty stomach. 06/08/2024 metoprolol succinate (TOPROL-XL) 50 MG 24 hr tablet Take 12.5 mg by mouth daily. 06/08/2024 prasugreL HCl (EFFIENT) 10 mg tab tablet Take 1 tablet (10 mg total) by mouth daily. 06/07/2024 pregabalin (LYRICA) 100 MG capsule Take 1 capsule (100 mg total) by mouth 3 (three) times daily. Max Daily Amount: 300 mg 06/08/2024 sildenafiL (VIAGRA) 25 MG tablet Take 1 tablet (25 mg total) by mouth as needed for erectile dysfunction. Past Month Scheduled Medications: atorvastatin 10 mg oral Every Night 10 mg at 06/08/242043 cefePIME 1 g intravenous Q8H levothyroxine 75 mcg oral Daily pantoprazole 40 mg oral Daily 40 mg at 06/08/248 phenazopyridine 95 mg oral TID 95 mg at 06/08/242043 pregabalin 100 mg oral TID 100 mg at 06/08/242043 Current Infusions: Current Facility-Administered Medications Medication Dose Route Frequency Provider Last Rate Last Admin acetaminophen (TYLENOL) tablet 650 mg 650 mg oral Q4H PRN Shannan Andrea MD 650 mg at 06/08/242043 atorvastatin (LIPITOR) tablet 10 mg 10 mg oral Every Night Shannan Andrea MD 10 mg at 06/08/242043 cefepime (MAXIPIME) IVPB 1 g in dextrose 5 % 50 mL (premix) Duplex 1 g intravenous Q8H Shannan Andrea MD HYDROcodone-acetaminophen (NORCO) 5-325 mg per tablet 1 tablet 1 tablet oral Q4H PRN Shannan Andrea MD levothyroxine (SYNTHROID) tablet 75 mcg 75 mcg oral Daily Shannan Andrea MD melatonin tablet 3 mg 3 mg oral Every Night PRN Shannan Andrea MD 3 mg at 06/08/242043 morphine injection 2 mg 2 mg intravenous Q4H PRN Shannan Andrea MD 2 mg at 06/09/24 0630 ondansetron (ZOFRAN) injection 4 mg 4 mg intravenous Q4H PRN Shannan Andrea MD ondansetron (ZOFRAN-ODT) disintegrating tablet 4 mg 4 mg oral Q4H PRN Shannan Andrea MD pantoprazole (PROTONIX) EC tablet 40 mg 40 mg oral Daily Shannan Andrea MD 40 mg at 06/08/24 1628 phenazopyridine (PYRIDIUM) tablet 95 mg 95 mg oral TID Shannan Andrea MD 95 mg at 06/08/242043 pregabalin (LYRICA) capsule 100 mg 100 mg oral TID Shannan Andrea MD 100 mg at 06/08/242043 sodium chloride 0.45 % (1/2NS) infusion 75 mL/hr intravenous Continuous Shannan Andrea MD 75 mL/hr at 06/08/242048 75 mL/hr at 06/08/242048 Social History: Social History Socioeconomic History Marital status: Spouse name: Not on file Number of children: Not on file Years of education: Not on file Highest education level: Not on file Occupational History Not on file Tobacco Use Smoking status: Never Passive exposure: Never Smokeless tobacco: Never Substance and Sexual Activity Alcohol use: Yes Alcohol/week: 2.0 standard drinks of alcohol Types: 1 Cans of beer, 1 Shots of liquor per week Drug use: Never Frequency: 1.0 times per week Types: Marijuana Sexual activity: Yes Partners: Female Other Topics Concern Not on file Social History Narrative Merged History Encounter Social Drivers of Health Financial Resource Strain: Low Risk (06/08/2024) Financial Resource Strain Struggle to pay for basics: Not hard at all Food Insecurity: No Food Insecurity (06/08/2024) Food Insecurity Food run out past 12 months: Never true Food did not last past 12 months: Never true Transportation Needs: No Transportation Needs (06/08/2024) Transportation Needs Transportation unreliable past 12 months: No Physical Activity: Sufficiently Active (06/08/2024) Physical Activity Minutes of exercise per week: 150 Stress: No Stress Concern Present (06/08/2024) Stress Feeling stress past 2 weeks: Not at all Social Connections: Unknown (06/08/2024) Family and Community Support Help with Day to Day Activities: I don't need any help Feeling Lonely or Isolated: 0 Intimate Partner Violence: Not on file Housing Stability: Low Risk (06/08/2024) Housing Stability Living situation today: I have a steady place to live Living situation problems: None of the above Living Arrangements: Spouse/significant other Type of Residence: Private residence Number of children: Number of pets: , Type: Occupation: Family History: Family History Problem Relation Name Age of Onset Heart disease Father Stroke Brother Heart disease Brother Heart disease Paternal Grandfather Review of Systems: Physical Exam: Patient is alert with moderate discomfort complaining of right-sided flank pain. Vitals: Hemodynamic parameters reviewed for last 24 hours. Blood pressure 109/72, pulse 53, temperature 98.2 ??F (36.8 ??C), resp. rate 16, height 1.854 m (6'0.99 ), weight 111.1 kg (244 lb 14.9 oz), SpO2 96%. Assessment: Jose G Germain is an 68 y.o. male. Patient Active Problem List Diagnosis Acute neck pain Acute back pain less than 4 weeks duration Kidney stone Reviewed, right ureteral stone plan as above. Discussed plan of care with Plan: Impression: Signed: Kareem Young MD Pager: 06/09/2024 10:02 AM Consults documented in this encounter OR Notes * Op Note - Kareem Young MD - 06/09/2024 3:46 PM EDT Operative/Procedure Note Jose G Germain Date of Surgery/Procedure: 06/09/2024 Pre-Procedure Diagnosis: Right mid ureteral stone Post-Procedure Diagnosis: Right mid ureteral stone Procedure Performed: Cystoscopy with right ureteral stone manipulation and ureteral stent placementwith right-sided shockwave lithotripsy of ureteral stone Surgeon(s) and Role: Surgeons and Role: * Kareem Young MD - Primary Assistants: None Anesthesia/Sedation: GETA Specimens: None Estimated Blood Loss: None Blood Administered: None Grafts or Implants: 4.8 Romansh by 28 cm right ureteral stent with string attached Complications: None Condition: PACU stable Findings: Patient was brought to the operating room for intervention. Sequential compression garments were placed and functioning time induction stone was difficult to see but appeared to be just above the sacrum on the right. Elected to perform cystoscopy to reduce the stone into 4 better definitive positioning. After satisfactory general esthesia was carefully placed lithotomy position. The genital area is prepped and draped in normal fashion. The 22 Romansh cystoscopy sheath in addition direct vision 30 lens. Urethra normal prostate mildly obstructing. Finding the bladder that bladder inspected entirely. The right ureter orifice was cannulated with 5 Romansh open-ended ureteral catheter. Fl uoroscopically is advanced and stone encountered just above the sacrum. With hydrostatically the stone was manipulated slightly proximally but did not completely reduce to the kidney. I was able to pass a 0.035 sensor wire through the ureteral catheter and beyond the stone. Stone was visualized andfelt to have adequate reduction. I then passed the ureteral stent over the wire nicely with a coil in the kidney and the colon the bladder. String attached. The bladder was emptied. String was secured to the penis with Tegaderm. Stone was then positioned for treatment. He received total of 4000 shocks maximum power of 9 and appeared to have complete obliteration of the stone. He was awakened trans ferred to PACU for recovery in stable condition. I will leave the stent for 72 hours. Kareem Young MD 53:46 PM documented in this encounter Miscellaneous Notes * Plan of Care - Octavio Alonzo RN - 06/09/2024 11:53 PM EDT Problem: Pain Goal: Patient's pain/discomfort is manageable Description: Assess and monitor patient's pain using appropriate pain scale. Collaborate with interdisciplinary team and initiate plan and interventions as ordered. Re-assess patient's pain level after pain management intervention. Outcome: Progressing Problem: Safety Goal: Patient will be injury free during hospitalization Description: Assess and monitor vitals signs, neurological status including level of consciousness and orientation. Assess patient's risk for falls and implement fall prevention plan of care and interventions per hospital policy. Ensure arm band on, uncluttered walking paths in room, adequate room lighting, call light and overbed table within reach, bed in low position, wheels locked, side rails up per policy, and non-skid footwear provided. Outcome: Progressing Problem: Potential for Infection Goal: Remains infection free Description: Assess and monitor vital signs, skin (color, moisture, integrity, turgor), respiratorystatus, urinary and gastrointestinal status, and labs (WBC, cultures). Administer antibiotics and antipyretics as ordered. Ensure aseptic care of all intravenous lines, invasive tubes/drains and wounds. Monitor for signs and symptoms of infection (redness, warmth, discharge, increased body temperature). Wash hands properly before and after each patient care activity. Follow isolation guidelines per hospital protocol/policy. Collaborate with interdisciplinary team and initiate plan and interventions as ordered. Outcome: Progressing * Plan of Care - Abdiel Mandel RN - 06/09/2024 6:25 PM EDT Problem: Pain Goal: Patient's pain/discomfort is manageable Description: Assess and monitor patient's pain using appropriate pain scale. Collaborate with interdisciplinary team and initiate plan and interventions as ordered. Re-assess patient's pain level after pain management intervention. Outcome: Progressing Problem: Safety Goal: Patient will be injury free during hospitalization Description: Assess and monitor vitals signs, neurological status including level of consciousness and orientation. Assess patient's risk for falls and implement fall prevention plan of care and interventions per hospital policy. Ensure arm band on, uncluttered walking paths in room, adequate room lighting, call light and overbed table within reach, bed in low position, wheels locked, side rails up per policy, and non-skid footwear provided. Outcome: Progressing Problem: Potential for Infection Goal: Remains infection free Description: Assess and monitor vital signs, skin (color, moisture, integrity, turgor), respiratorystatus, urinary and gastrointestinal status, and labs (WBC, cultures). Administer antibiotics and antipyretics as ordered. Ensure aseptic care of all intravenous lines, invasive tubes/drains and wounds. Monitor for signs and symptoms of infection (redness, warmth, discharge, increased body temperature). Wash hands properly before and after each patient care activity. Follow isolation guidelines per hospital protocol/policy. Collaborate with interdisciplinary team and initiate plan and interventions as ordered. Outcome: Progressing * Plan of Care - Octavio Alonzo RN - 06/08/2024 10:28 PM EDT Problem: Pain Goal: Patient's pain/discomfort is manageable Description: Assess and monitor patient's pain using appropriate pain scale. Collaborate with interdisciplinary team and initiate plan and interventions as ordered. Re-assess patient's pain level after pain management intervention. Outcome: Progressing Problem: Safety Goal: Patient will be injury free during hospitalization Description: Assess and monitor vitals signs, neurological status including level of consciousness and orientation. Assess patient's risk for falls and implement fall prevention plan of care and interventions per hospital policy. Ensure arm band on, uncluttered walking paths in room, adequate room lighting, call light and overbed table within reach, bed in low position, wheels locked, side rails up per policy, and non-skid footwear provided. Outcome: Progressing Problem: Potential for Infection Goal: Remains infection free Description: Assess and monitor vital signs, skin (color, moisture, integrity, turgor), respiratorystatus, urinary and gastrointestinal status, and labs (WBC, cultures). Administer antibiotics and antipyretics as ordered. Ensure aseptic care of all intravenous lines, invasive tubes/drains and wounds. Monitor for signs and symptoms of infection (redness, warmth, discharge, increased body temperature). Wash hands properly before and after each patient care activity. Follow isolation guidelines per hospital protocol/policy. Collaborate with interdisciplinary team and initiate plan and interventions as ordered. Outcome: Progressing * Plan of Care - Christina Vo RN - 06/08/2024 6:48 PM EDT Problem: Safety Goal: Patient will be injury free during hospitalization Description: Assess and monitor vitals signs, neurological status including level of consciousness and orientation. Assess patient's risk for falls and implement fall prevention plan of care and interventions per hospital policy. Ensure arm band on, uncluttered walking paths in room, adequate room lighting, call light and overbed table within reach, bed in low position, wheels locked, side rails up per policy, and non-skid footwear provided. Outcome: Progressing Intervention: Assess patient's risk for falls and implement fall prevention plan of care per policy Recent Flowsheet Documentation Taken 06/08/2024 1800 by Christina oV RN History of Fallin Secondary Diagnosis: 15 Ambulatory Aids: 0 Intravenous Therapy/Intravenous Access: 20 Gait/Transferrin Mental Status: 0 Score: 35 Intervention: Provide and maintain safe environment Recent Flowsheet Documentation Taken 06/08/2024 1800 by Christina Vo RN Side Rails/Bed Safety: 03/22 Intervention: Use appropriate transfer methods Recent Flowsheet Documentation Taken 06/08/2024 1800 by Christina Vo RN Level of Assistance: Standby assist, set-up cues, supervision of patient - no hands on Problem: Potential for Infection Goal: Remains infection free Description: Assess and monitor vital signs, skin (color, moisture, integrity, turgor), respiratorystatus, urinary and gastrointestinal status, and labs (WBC, cultures). Administer antibiotics and antipyretics as ordered. Ensure aseptic care of all intravenous lines, invasive tubes/drains and wounds. Monitor for signs and symptoms of infection (redness, warmth, discharge, increased body temperature). Wash hands properly before and after each patient care activity. Follow isolation guidelines per hospital protocol/policy. Collaborate with interdisciplinary team and initiate plan and interventions as ordered. Outcome: Progressing Intervention: Assess immunization status Recent Flowsheet Documentation Taken 06/08/2024 1833 by Christina Vo RN Have you ever had a pneumonia vaccination(PCV13 or PPSV23)?: No / Unknown Have you had an influenza vaccine this season?: No Problem: Pain Goal: Patient's pain/discomfort is manageable Description: Assess and monitor patient's pain using appropriate pain scale. Collaborate with interdisciplinary team and initiate plan and interventions as ordered. Re-assess patient's pain level after pain management intervention. Outcome: Progressing Intervention: Asssess pain level utilizing 0-10 scale Recent Flowsheet Documentation Taken 06/08/2024 1628 by Christina Vo RN Pain Score: Eight Problem: Pain Goal: Patient's pain/discomfort is manageable Description: Assess and monitor patient's pain using appropriate pain scale. Collaborate with interdisciplinary team and initiate plan and interventions as ordered. Re-assess patient's pain level after pain management intervention. Outcome: Progressing Problem: Safety Goal: Patient will be injury free during hospitalization Description: Assess and monitor vitals signs, neurological status including level of consciousness and orientation. Assess patient's risk for falls and implement fall prevention plan of care and interventions per hospital policy. Ensure arm band on, uncluttered walking paths in room, adequate room lighting, call light and overbed table within reach, bed in low position, wheels locked, side rails up per policy, and non-skid footwear provided. Outcome: Progressing Problem: Potential for Infection Goal: Remains infection free Description: Assess and monitor vital signs, skin (color, moisture, integrity, turgor), respiratorystatus, urinary and gastrointestinal status, and labs (WBC, cultures). Administer antibiotics and antipyretics as ordered. Ensure aseptic care of all intravenous lines, invasive tubes/drains and wounds. Monitor for signs and symptoms of infection (redness, warmth, discharge, increased body temperature). Wash hands properly before and after each patient care activity. Follow isolation guidelines per hospital protocol/policy. Collaborate with interdisciplinary team and initiate plan and interventions as ordered. Outcome: Progressing * Plan of Care - Christina Vo RN - 06/08/2024 6:47 PM EDT Problem: Pain Goal: Patient's pain/discomfort is manageable Description: Assess and monitor patient's pain using appropriate pain scale. Collaborate with interdisciplinary team and initiate plan and interventions as ordered. Re-assess patient's pain level after pain management intervention. Intervention: Asssess pain level utilizing 0-10 scale Recent Flowsheet Documentation Taken 06/08/2024 1628 by Christina Vo RN Pain Score: Eight Problem: Safety Goal: Patient will be injury free during hospitalization Description: Assess and monitor vitals signs, neurological status including level of consciousness and orientation. Assess patient's risk for falls and implement fall prevention plan of care and interventions per hospital policy. Ensure arm band on, uncluttered walking paths in room, adequate room lighting, call light and overbed table within reach, bed in low position, wheels locked, side rails up per policy, and non-skid footwear provided. Intervention: Assess patient's risk for falls and implement fall prevention plan of care per policy Recent Flowsheet Documentation Taken 06/08/2024 1800 by Christina Vo RN History of Fallin Secondary Diagnosis: 15 Ambulatory Aids: 0 Intravenous Therapy/Intravenous Access: 20 Gait/Transferrin Mental Status: 0 Score: 35 Intervention: Provide and maintain safe environment Recent Flowsheet Documentation Taken 06/08/2024 1800 by Christina Vo RN Side Rails/Bed Safety: 03/22 Intervention: Use appropriate transfer methods Recent Flowsheet Documentation Taken 06/08/2024 1800 by Christina Vo RN Level of Assistance: Standby assist, set-up cues, supervision of patient - no hands on documented in this encounter Plan of Treatment Not on file documented as of this encounter Procedures Procedure Name Priority Date/Time Associated Diagnosis Comments DE CYSTO W/INSERT URETERAL STENT 06/09/2024 2:39 PM EDT Diagnosis unknown DE LITHOTRIPSY XTRCORP SHOCK WAVE 06/09/2024 2:39 PM EDT Diagnosis unknown XR ABDOMEN/KUB 1 VIEW PORTABLE Routine 06/09/2024 1:42 PM EDT BASIC METABOLIC PANEL Routine 06/09/2024 5:28 AM EDT CBC HEMOGRAM (SJ-BKR) STAT 06/08/2024 5:26 PM EDT PT/INR, PTT STAT 06/08/2024 5:26 PM EDT BASIC METABOLIC PANEL STAT 06/08/2024 5:26 PM EDT XR CHEST AP PORTABLE STAT 06/08/2024 4:55 PM EDT FS_MODEL_IP_ECG 12-LEAD STAT 06/08/2024 4:43 PM EDT EKG-SCANNED 06/08/2024 documented in this encounter Results * XR KUB PORTABLE (06/09/2024 1:42 PM EDT) Anatomical Region Laterality Modality Abdomen X-Ray 06/09/2024 2:54 PM EDT Impressions 06/09/2024 2:56 PM EDT Nonspecific bowel gas pattern. Images reviewed, interpreted, and dictated by Dr. Brigette Sheikh. Transcribed by Rosalie Ortega PA-C. Narrative 06/09/2024 2:56 PM EDT KUB HISTORY: Nephrolithiasis. COMPARISON: None. FINDINGS: A single view of the abdomen with a coned-down of the pelvis demonstrates a nonspecific bowel gas pattern. No definite abnormal calcifications are identified. There are multiple right upper quadrant surgical clips consistent with cholecystectomy. Lower lumbar spinal fusion hardware is noted. Procedure Note Samaria Sheikh MD - 06/09/2024 KUB HISTORY: Nephrolithiasis. COMPARISON: None. FINDINGS: A single view of the abdomen with a coned-down of the pelvis demonstrates a nonspecific bowel gas pattern. No definite abnormal calcifications are identified. There are multiple right upper quadrant surgical clips consistent with cholecystectomy. Lower lumbar spinal fusion hardware is noted. IMPRESSION: Nonspecific bowel gas pattern. Images reviewed, interpreted, and dictated by Dr. Brigette Sheikh. Transcribed by Rosalie Ortega PA-C. Kareem Young MD IMG DIAGNOSTIC IMAGING ORDERAB LES Final Result * (ABNORMAL) Basic Metabolic Panel (06/09/2024 5:28 AM EDT) Sodium 141 136 - 146 meq/L 06/09/2024 5:39 AM EDT [facility] Potassium 4.1 3.5 - 5.1 meq/L 06/09/2024 5:39 AM EDT [facility] Chloride 111 102 - 112 meq/L 06/09/2024 5:39 AM EDT [facility] CO2 26 21 - 32 meq/L 06/09/2024 5:39 AM EDT [facility] Anion Gap 8(L) 9 - 20 06/09/2024 5:39 AM EDT [facility] BUN 18 7 - 22 mg/dL 06/09/2024 5:39 AM EDT [facility] Creatinine 0.97 0.70 - 1.30 mg/dL 06/09/2024 5:39 AM EDT [facility] BUN/Creatinine 19 8 - 20 06/09/2024 5:39 AM EDT [facility] Glucose 107(H) 74 - 106 mg/dL 06/09/2024 5:39 AM EDT [facility] Calcium 8.3(L) 8.5 - 10.1 mg/dL 06/09/2024 5:39 AM EDT [facility] Osmolality Calc 283.6 mOsm/kg 5:39 AM EDT [facility] eGFR (mL/min/1.73m2) >60 >=60 mL/min/1.7 3m2 06/09/2024 5:39 AM EDT [facility] Comment:eGFR of <60 suggests chronic kidney disease if found over a 3 month period of time. eGFR <15 indicates renal failure. Blood Venipuncture / Unknown 06/09/2024 5:28 AM EDT 06/09/2024 5:28 AM EDT us Shannan Andrea MD LAB BLOOD ORDERABLES Final Resu lt [facility] [address] [phone] * PT/INR, PTT (06/08/2024 5:26 PM EDT) aPTT 28.2 22.0 - 32.0 seconds 06/08/2024 5:45 PM EDT [facility] Protime 10.8 9.0 - 12.0 seconds 06/08/2024 5:45 PM EDT [facility] INR 0.99 0.80 - 1.10 06/08/2024 5:45 PM EDT [facility] Blood Venipuncture / Unknown 06/08/2024 5:26 PM EDT 06/08/2024 5:26 PM EDT us Shannan Andrea MD LAB BLOOD ORDERABLES Final Resu lt [facility] [address] [place] [id number] [phone] * (ABNORMAL) CBC - Hemogram (SJ-BKR) (06/08/2024 5:26 PM EDT) WBC 9.1 3.9 - 10.0 K/ L 06/08/2024 5:33 PM EDT [facility] RBC 4.13(L) 4.63 - 6.08 M/ L 06/08/2024 5:33 PM EDT [facility] Hemoglobin 12.6 11.2 - 15.7 GM/DL 06/08/2024 5:33 PM EDT [facility] Hematocrit 38.6(L) 40.1 - 51.0 % 06/08/2024 5:33 PM EDT [facility] MCV 94 79 - 95 fL 06/08/2024 5:33 PM EDT [facility] MCH 30.5 25.6 - 32.2 pg 06/08/2024 5:33 PM EDT [facility] MCHC 32.6 32.3 - 36.5 GM/DL 06/08/2024 5:33 PM EDT [facility] RDW 13.2 11.6 - 14.4 % 06/08/2024 5:33 PM EDT [facility] Platelets 214 163 - 369 K/CU MM 06/08/2024 5:33 PM EDT [facility] MPV 9.7 9.4 - 12.4 fL 06/08/2024 5:33 PM EDT [facility] nRBC 0(L) 1 - 5 /100 WBC 06/08/2024 5:33 PM EDT [facility] Blood Venipuncture / Unknown 06/08/2024 5:26 PM EDT 06/08/2024 5:26 PM EDT Shannan Andrea MD LAB BLOOD ORDERABLES Final Resu lt [facility] [address] [phone] * (ABNORMAL) Basic Metabolic Panel (06/08/2024 5:26 PM EDT) Sodium 141 136 - 146 meq/L 06/08/2024 5:49 PM EDT [facility] Potassium 4.6 3.5 - 5.1 meq/L 06/08/2024 5:49 PM EDT [facility] Chloride 109 102 - 112 meq/L 06/08/2024 5:49 PM EDT [facility] CO2 27 21 - 32 meq/L 06/08/2024 5:49 PM EDT [facility] Anion Gap 10 9 - 20 06/08/2024 5:49 PM EDT [facility] BUN 18 7 - 22 mg/dL 06/08/2024 5:49 PM EDT [facility] Creatinine 1.15 0.70 - 1.30 mg/dL 06/08/2024 5:49 PM EDT [facility] BUN/Creatinine 16 8 - 20 06/08/2024 5:49 PM EDT [facility] Glucose 94 74 - 106 mg/dL 06/08/2024 5:49 PM EDT [facility] Calcium 8.4(L) 8.5 - 10.1 mg/dL 06/08/2024 5:49 PM EDT [facility] Osmolality Calc 282.9 mOsm/kg 5:49 PM EDT [facility] eGFR (mL/min/1.73m2) >60 >=60 mL/min/1.7 3m2 06/08/2024 5:49 PM EDT [facility] Comment:eGFR of <60 suggests chronic kidney disease if found over a 3 month period of time. eGFR <15 indicates renal failure. Blood Venipuncture / Unknown 06/08/2024 5:26 PM EDT 06/08/2024 5:26 PM EDT Shannan Andrea MD LAB BLOOD ORDERABLES Final Resu lt [facility] [address] [phone] * XR chest AP portable (06/08/2024 4:55 PM EDT) Anatomical Region Laterality Modality Chest X-Ray 06/09/2024 1:51 AM EDT Impressions 06/09/2024 1:52 AM EDT No acute cardiopulmonary process. Images reviewed, interpreted, dictated and electronically signed by Devon Walker MD Voice director of science technology (Power Scribe) is used for the dictation of this note and sound-alike words might be erroneously placed despite reviewing this note for accuracy. Errors in dictation may reflect use of voice recognition software and not all errors in director of science may have been detected prior to signing. Narrative 06/09/2024 1:52 AM EDT PORTABLE CHEST HISTORY: Cough, smoker. COMPARISON: 05/15/2022. FINDINGS: A single portable radiograph of the chest was performed. The heart is normal in size. The lungs are well expanded. There is underlying chronic interstitial change. There is no edema or infiltrate. There are no effusions. Procedure Note Devon Walker MD - 06/09/2024 PORTABLE CHEST HISTORY: Cough, smoker. COMPARISON: 05/15/2022. FINDINGS: A single portable radiograph of the chest was performed. The heart is normal in size. The lungs are well expanded. There is underlying chronic interstitial change. There is no edema or infiltrate. There are no effusions. IMPRESSION: No acute cardiopulmonary process. Images reviewed, interpreted, dictated and electronically signed by Devon Walker MD Voice director of science technology (Power Scribe) is used for the dictation of this note and sound-alike words might be erroneously placed despite reviewing this note for accuracy. Errors in dictation may reflect use of voice recognition software and not all errors in director of science may have been detected prior to signing. us Shannan Andrea MD IMG DIAGNOSTIC IMAGING ORDERABL ES Final Result * ECG 12 lead (06/08/2024 4:43 PM EDT) VENTRICULAR RATE EKG/MIN 0 BPM GE MUSE ATRIAL RATE (MCT) 0 BPM GE MUSE QRS-INTERVAL (MSEC) 0 ms GE MUSE QT Interval 0 ms GE MUSE QTC Interval 0 ms GE MUSE R AXIS (MCT) 0 degrees GE MUSE T Wave Amelia 0 degrees GE MUSE Lamar Diagnosis No QRS complexes found, no ECG analysis possible Confirmed by Saroj KHAN SUZANNE ([id number]) on 06/13/2024 12:33:18 PM GE MUSE 06/08/2024 4:43 PM EDT 06/13/2024 12:33 PM EDT us Shannan Andrea MD ECG ORDERABLES Final Result GE MUSE * EKG-SCANNED (06/08/2024) Narrative 06/08/2024 Ordered by an unspecified provider. us Default Scanning Provider SCAN ORDERS Final Result documented in this encounter Visit Diagnoses Diagnosis Kidney stone- Primary Calculus of kidney CAD (coronary artery disease) Coronary atherosclerosis of unspecified type of vessel, ely [place] or graft HTN (hypertension) Unspecified essential hypertension documented in this encounter Admitting Diagnoses Diagnosis Kidney stone Calculus of kidney documented in this encounter Administered Medications Inactive Administered Medications - up to 3 most recent administrations Medication Order MAR Action Action Date Dose Rate Site acetaminophen (TYLENOL) tablet 650 mg 650 mg Every 4 hours PRN, oral, mild pain (1-3), headache, fever (specify), moderate pain (4-6), ANY FEVER, Starting on Thu06/08/24 at 1611, Recommended maximum dose of acetaminophen is 4000 mg from all sources in 24 hours Given 06/08/2024 8:44 PM EDT 650 mg atorvastatin (LIPITOR) tablet 10 mg 10 mg Every Night, oral, First dose on Thu06/08/24 at 2100 Given 06/09/2024 8:20 PM EDT 10 mg Given 06/08/2024 8:44 PM EDT 10 mg cefepime (MAXIPIME) IVPB 1 g in dextrose 5 % 50 mL (premix) Duplex 1 g Every 8 hours scheduled, intravenous, Administer over 180 Minutes, First dose on Elizabeth 06/09/24 at 0630, Please choose an indication: Urinary Tract Infection, Intra-abdominal Infection IVPB Started 06/10/2024 4:11 AM EDT 1 g 16.7 mL/hr IVPB Started 06/09/2024 8:19 PM EDT 1 g 16.7 mL/hr IVPB Started 06/09/2024 1:27 PM EDT 1 g 16.7 mL/hr cefepime (MAXIPIME) IVPB 2 g in dextrose 5 % 50 mL (premix) Duplex 2 g Once, intravenous, Administer over 30 Minutes, On Thu06/08/24 at 1800, For 1 dose, Please choose an indication: Intra-abdominal Infection, Urinary Tract Infection IVPB Started 06/08/2024 8:45 PM EDT 2 g 100 mL/hr cefTRIAXone (ROCEPHIN) IVPB 2 g in dextrose 5 % 50 mL (premix) 2 g Every 24 hours, intravenous, at 100 mL/hr, First dose on Thu06/08/24 at 1630, Please choose an indication: Urinary Tract Infection IVPB Started 06/08/2024 4:27 PM EDT 2 g 100 mL/hr HYDROcodone-acetaminophen (NORCO) 5-325 mg per tablet 1 tablet 1 tablet Every 4 hours PRN, oral, moderate pain (4-6), Starting on Thu06/08/24 at 1610, Recommended maximum dose of acetaminophen is 4000 mg from all sources in 24 hours levothyroxine (SYNTHROID) tablet 75 mcg 75 mcg Daily, oral, First dose on [facility] 06/09/24 at 0900, Given 06/10/2024 8:26 AM EDT 75 mcg melatonin tablet 3 mg 3 mg Every Night PRN, oral, insomnia, Starting on Thu06/08/24 at 1610 Given 06/09/2024 8:20 PM EDT 3 mg Given 06/08/2024 8:44 PM EDT 3 mg morphine injection 2 mg 2 mg Every 4 hours PRN, intravenous, severe pain (7-10), Starting on Thu06/08/24 at 1610 Given 06/09/2024 11:11 AM EDT 2 mg Given 06/09/2024 6:30 AM EDT 2 mg Given 06/09/2024 1:25 AM EDT 2 mg ondansetron (ZOFRAN) injection 4 mg 4 mg Every 4 hours PRN, intravenous, nausea, vomiting, Starting on Thu06/08/24 at 1610, For IV push, give over 2 - 5 minutes. Given 06/09/2024 2:58 PM EDT 4 mg ondansetron (ZOFRAN-ODT) disintegrating tablet 4 mg 4 mg Every 4 hours PRN, oral, nausea, vomiting, Starting on Thu06/08/24 at 1610 pantoprazole (PROTONIX) EC tablet 40 mg 40 mg Daily, oral, First dose on Thu06/08/24 at 1630, * DO NOT CRUSH THIS DOSAGE FORM * Given 06/10/2024 8:26 AM EDT 4 0 mg Given 06/08/2024 4:28 PM EDT 40 mg phenazopyridine (PYRIDIUM) tablet 95 mg 95 mg 3 times daily, oral, First dose on Thu06/08/24 at 2100, For 3 days Given 06/10/2024 8:26 AM EDT 95 mg Given 06/09/2024 8:20 PM EDT 95 mg Given 06/08/2024 8:44 PM EDT 95 mg pregabalin (LYRICA) capsule 100 mg 100 mg 3 times daily, oral, First dose on Thu06/08/24 at 2100 Given 06/10/2024 8:26 AM EDT 100 mg Given 06/09/2024 8:20 PM EDT 100 mg Given 06/08/2024 8:44 PM EDT 100 mg sodium chloride 0.45 % (1/2NS) infusion 75 mL/hr Continuous, intravenous, Starting on Thu06/08/24 at 1830, For 2 days Restarted 06/09/2024 3:00 PM EDT Continued by Anesthesia 06/09/2024 2:41 PM EDT 75 mL/hr New Bag 06/08/2024 8:49 PM EDT 75 mL/hr 75 mL/hr documented in this encounter Active and Recently Administered Medications Times are shown in EDT. Scheduled Medication Order 06/08/2024 06/09/2024 06/10/2024 atorvastatin (LIPITOR) tablet 10 mg 10 mg Every Night, oral, First dose on Thu06/08/24 at 2100 204 (Given - Provider: Octavio Alonzo RN) 1302 (MAR Hold - Provider: Automatic Transfer Provider - Reason: Unreviewed Transfer Orders)1650 (APR Unhold - Provider: Automatic Transfer Provider)2020 (Given - Provider: Octavio Alonzo, MATIAS) ceFAZolin (ANCEF) IVPB 2 g/50 mL D5W (premix) (COMPLETED) 2 g Once, intravenous, Administer over 30 Minutes, On Elizabeth 06/09/24 at 1330, For 1 dose, Administer within 60 minutes of incision or procedure start., Pre-op, Please choose an indication: Surgical Prophylaxis 1334 (Handoff - Provider: Jailene Zendejas RN)1450 (Given - Provider: Abhay Barbour CRNA) cefepime (MAXIPIME) IVPB 1 g in dextrose 5 % 50 mL (premix) Duplex 1 g Every 8 hours scheduled, intravenous, Administer over 180 Minutes, First dose on Elizabeth 06/09/24 at 0630, Please choose an indication: Urinary Tract Infection, Intra-abdominal Infection 1300 (Not Given - Provider: Abdiel Mandel RN - Reason: Duplicate Order)1302 (APR Hold - Provider: Automatic Transfer Provider - Reason: Unreviewed Transfer Orders)1327 (IVPB Started - Provider: Jailene Zendejas RN)1627 (Due: IVPB Stopped - Provider: Jailene Zendejas RN)1650 (MAR Unhold - Provider: Automatic Transfer Provider)2019 (IVPB Started - Provider: Octavio Alonzo RN)2319 (IVPB Stopped - Provider: Octavio Alonzo RN) 0411 (IVPB Started - Provider: Octavio Alonzo, RN)0711 (IVPB Stopped - Provider: Abdiel Mandel RN) cefepime (MAXIPIME) IVPB 2 g in dextrose 5 % 50 mL (premix) Duplex (COMPLETED) 2 g Once, intravenous, Administer over 30 Minutes, On Thu06/08/24 at 1800, For 1 dose, Please choose an indication: Intra-abdominal Infection, Urinary Tract Infection 2044 (IVPB Started - Provider: Octavio Alonzo, MATIAS)2114 (IVPB Stopped - Provider: Octavio Alonzo, MATIAS) cefTRIAXone (ROCEPHIN) IVPB 2 g in dextrose 5 % 50 mL (premix) (CANCELED) 2 g Every 24 hours, intravenous, at 100 mL/hr, First dose on Thu06/08/24 at 1630, Please choose an indication: Urinary Tract Infection 1627 (IVPB Started - Provider: Christina Vo RN)1721 (IVPB Stopped - Provider: Christina Vo RN) levothyroxine (SYNTHROID) tablet 75 mcg 75 mcg Daily, oral, First dose on Thu06/09/24 at 0900, 0900 (Not Given - Provider: Abdiel Mandel RN - Reason: NPO)1302 (APR Hold - Provider: Automatic Transfer Provider - Reason: Unreviewed Transfer Orders)1650 (APR Unhold - Provider: Automatic Transfer Provider) 0826 (Given - Provider: Abdiel Mandel, MATIAS) pantoprazole (PROTONIX) EC tablet 40 mg 40 mg Daily, oral, First dose on Thu06/08/24 at 1630, * DO NOT CRUSH THIS DOSAGE FORM * 1628 (Given - Provider: Christina Vo RN) 0900 (Not Given - Provider: Abdiel Mandel RN - Reason: NPO)1302 (APR Hold - Provider: Automatic Transfer Provider - Reason: Unreviewed Transfer Orders)165 (APR Unhold - Provider: Automatic Transfer Provider) 0826 (Given - Provider: Abdiel Mandel, MATIAS) phenazopyridine (PYRIDIUM) tablet 95 mg 95 mg 3 times daily, oral, First dose on Thu06/08/24 at 2100, For 3 days 2043 (Given - Provider: Octavio Alonzo RN) 0900 (Not Given - Provider: Abdiel Mandel, MATIAS - Reason: NPO)1302 (APR Hold - Provider: Automatic Transfer Provider - Reason: Unreviewed Transfer Orders)1500 (Automatically Held - Provider: Automatic Transfer Provider)1650 (APR Unhold - Provider: Automatic Transfer Provider)2019 (Given - Provider: Octavio Alonzo, MATIAS) 0826 (Given - Provider: Abdiel Mandel, MATIAS) pregabalin (LYRICA) capsule 100 mg 100 mg 3 times daily, oral, First dose on Thu06/08/24 at 2100 2043 (Given - Provider: Octavio Alonzo, MATIAS) 0900 (Not Given - Provider: Abdiel Mandel RN - Reason: NPO)1302 (APR Hold - Provider: Automatic Transfer Provider - Reason: Unreviewed Transfer Orders)1500 (Automatically Held - Provider: Automatic Transfer Provider)1650 (APR Unhold - Provider: Automatic Transfer Provider)2019 (Given - Provider: Octavio Alonzo RN) 0826 (Given - Provider: Abdiel Mandel RN) Continuous Medication Order 06/08/2024 06/09/2024 06/10/2024 sodium chloride 0.45 % (1/2NS) infusion (CANCELED) 75 mL/hr Continuous, intravenous, Starting on Thu06/08/24 at 1830, For 2 days 2048 (New Bag - Provider: Octavio Alonzo RN) 144 (Continued by Anesthesia - Provider: Abhay Barbour CRNA)1459 (Paused - Provider: Abhay Barbour CRNA - Comment: Switch to gravity)1500 (Restarted - Provider: Abhay Barbour CRNA)1554 (Anesthesia Volume Adjustment - Provider: Abhay Barbour CRNA) PRN Medication Order 06/08/2024 06/09/2024 06/10/2024 acetaminophen (TYLENOL) tablet 650 mg 650 mg Every 4 hours PRN, oral, mild pain (1-3), headache, fever (specify), moderate pain (4-6), ANY FEVER, Starting on Thu06/08/24 at 1611, Recommended maximum dose of acetaminophen is 4000 mg from all sources in 24 hours 204 (Given - Provider: Octavio Alonzo RN) 1302 (APR Hold - Provider: Automatic Transfer Provider - Reason: Unreviewed Transfer Orders)1650 (APR Unhold - Provider: Automatic Transfer Provider) HYDROcodone-acetaminophen (NORCO) 5-325 mg per tablet 1 tablet 1 tablet Every 4 hours PRN, oral, moderate pain (4-6), Starting on Thu06/08/24 at 1610, Recommended maximum dose of acetaminophen is 4000 mg from all sources in 24 hours 1302 (APR Hold - Provider: Automatic Transfer Provider - Reason: Unreviewed Transfer Orders)1650 (APR Unhold - Provider: Automatic Transfer Provider) lidocaine (UROJET, GLYDO) 2 % jelly (CANCELED) As needed, Starting on Elizabeth 06/09/24 at 1515, Intra-op 1515 (Given - Provider: Kareem Young MD) melatonin tablet 3 mg 3 mg Every Night PRN, oral, insomnia, Starting on Thu06/08/24 at 1610 204 (Given - Provider: Octavio Alonzo RN) 1302 (APR Hold - Provider: Automatic Transfer Provider - Reason: Unreviewed Transfer Orders)1650 (APR Unhold - Provider: Automatic Transfer Provider)2020 (Given - Provider: Octavio Alonzo, RN) morphine injection 2 mg 2 mg Every 4 hours PRN, intravenous, severe pain (7-10), Starting on Thu06/08/24 at 1610 1628 (Given - Provider: Christina Vo, RN)2042 (Given - Provider: Octavio Alonzo, RN) 0125 (Given - Provider: Octavio Alonzo, RN)0630 (Given - Provider: Octavio Alonzo, RN)1111 (Given - Provider: Abdiel Mandel RN)1302 (APR Hold - Provider: Automatic Transfer Provider - Reason: Unreviewed Transfer Orders)1650 (APR Unhold - Provider: Automatic Transfer Provider) ondansetron (ZOFRAN) injection 4 mg 4 mg Every 4 hours PRN, intravenous, nausea, vomiting, Starting on Thu06/08/24 at 1610, For IV push, give over 2 - 5 minutes. 1302 (APR Hold - Provider: Automatic Transfer Provider - Reason: Unreviewed Transfer Orders)1458 (Given - Provider: Abhay Barbour CRNA)1650 (APR Unhold - Provider: Automatic Transfer Provider) ondansetron (ZOFRAN-ODT) disintegrating tablet 4 mg 4 mg Every 4 hours PRN, oral, nausea, vomiting, Starting on Thu06/08/24 at 1610 1302 (APR Hold - Provider: Automatic Transfer Provider - Reason: Unreviewed Transfer Orders)1650 (APR Unhold - Provider: Automatic Transfer Provider) documented in this encounter Care Teams Community Organization Worker Relationship Specialty Start Date End Date Yee Estrada [address] [id number] PCP - General 05/14/22 06/09/24 Lolita Belcher [address] [place] [address], [address] [place] [id number] Advanced Registered Nurse Practitioner Primary Care 06/10/24 documented as of this encounter
--- OUTSIDE RECORDS SUMMARY | 2024-06-09 13:50 | XMS_ITS | Encounter Summary ---
Author Organization [employer] Address [address] [place] [address] Care Team Providers Care Emergency Response Coordinator Name Role Phone Yee Estrada Primary Care Provider Unavail able Reason for Visit * Auth/Cert (Routine) Specialty Diagnoses / Procedures Referred By Contac t Referred To Contact Diagnoses Kidney stone KIDNEY STONE [facility] Telemetry Unit [address] [place] [address] Phone: tel: fax: [facility] Telemetry [address] [place] [address] Phone: tel: fax: Referral ID Status Reason Start Date Expiration Date Visits Re quested Visits Authorized [id number] 1 1 Encounter Details Date Type Department Care Team (Late st Contact Info) Description 06/09/2024 1:50 PM EDT - 06/09/2024 3:22 PM EDT Surgery [facility] Surgery Department [address] [place] [address] Kareem Young MD [address] [facility] [address] [place] [address] LITHOTRIPSY,EXTRACORP OREAL SHOCK WAVE (ESWL) Social History Tobacco Use Types Packs/Day Years [...] your living situation today? I have a [facility] place to live 06/08/2024 Think about the [...] Do you speak a language other than Bhutanese at [facility]? No 06/08/2024 Do you want help with [...] Sign Reading Time Taken Comments Blood Pressure 133/85 06/09/2024 1:34 PM EDT Pulse 52 06/09/2024 1:34 PM EDT Temperature 36.5 C (97.7 F) 06/09/2024 1:34 PM EDT Respiratory Rate 21 06/09/2024 1:34 PM EDT Oxygen Saturation 100% 06/09/2024 1:34 PM EDT Inhaled Oxygen Concentration - - Weight 111.1 kg (244 lb 14.9 oz) 06/08/2024 6:46 PM EDT Height 185.4 cm (6' 0.99 ) 06/08/2024 6:46 PM ED T Body Mass Index 32.32 06/08/2024 6:46 PM EDT documented in this encounter Discharge Summaries * Shannan Andrea MD - 06/10/2024 11:20 AM EDT DISCHARGE SUMMARY [facility] Patient Name: Jose G Germain : [...] and subsequent removal bilaterally. Patient presented to [facility] ER on 06/08/2024 and transferred to [facility] on 06/08/2024. Patient reported that he has been feeling well for 1 week. He started to have right flank pain got worse over the past 2 days. He went to the ER at [facility] and he underwent CT scan of the abdomen and pelvis which showed right hydro nephrosis and right ureterolysis 10. Patient was given IV Dilaudid. [facility] Hospital Course: The patient [...] Component Value Units Date/Time XR KUB PORTABLE [[id number]] Collected: 06/09/24 145 Order Status: Completed Updated: [...] Rosalie Ortega PA-C. XR chest AP portable [[id number]] Collected: 06/09/24 0151 Order Status: Completed Updated: 06/09/24153 Narrative: PORTABLE [...] electronically signed by Devon Walker MD Voice air saw operator technology (Power Scribe) is used for the dictation of this note and sound-alike words might be erroneously placed despite reviewing this note for accuracy. Errors in dictation may reflect use of voice recognition software and not all errors in air saw operator may have been detected prior to signing. [...] Your Medications These medications were sent to [facility] [place] - [address] [facility] [address] [facility] [address] [facility] [id number] HYDROcodone-acetaminophen 7.5-325 mg per tablet nitrofurantoin (macrocrystal-monohydrate) [...] for follow-up Kareem Young MD Specialty: Urology [address] [place] [address] [address] [place] [address] Next Steps: Follow up Instructions: Follow-up Thursday with ureteral stent removal. The office will be reaching out to you today with appt information. Lolita Belcher [facility] Primary Care [address] [place] [address], [address] [address] Next Steps: Go on 06/23/2024 Instructions: Appt time is 11 am. Time Spent: 33 minutes documented in this encounter Discharge Instructions * Attachments The following attachments cannot be sent through Care Everywhere. * ESWL for Kidney Stones Care After (Bhutanese) * Ureteral Stent Implantation Care After (Bhutanese) documented in this encounter Medications at Time [...] Intake/Output: Intake/Output Summary (Last 24 hours) at 06/09/2024 192 Last data filed at 06/09/2024 1800 Gross [...] Component Value Units Date/Time XR KUB PORTABLE [[id number]] Collected: 06/09/24 1474 Order Status: Completed Updated: 06/09/24 1458 Narrative: [...] Rosalie Ortega PA-C. XR chest AP portable [[id number]] Collected: 06/09/24150 Order Status: Completed Updated: 06/09/24153 Narrative: PORTABLE [...] electronically signed by Devon Walker MD Voice air saw operator technology (Power Jolicloudibe) is used for the dictation of this note and sound-alike words might be erroneously placed despite reviewing this note for accuracy. Errors in dictation may reflect use of voice recognition software and not all errors in air saw operator may have been detected prior to signing. [...] 1 g intravenous Q8H Shannan Andrea MD 16.7 mL/hr at 06/09/24 1327 1 [...] SPENT: 31 minutes Signed: Shannan Andrea MD [facility] Hospitalist 06/09/2024 documented in this encounter H&P Notes * Shannan Andrea MD - 06/08/2024 6:51 PM EDT ADMISSION HISTORY AND PHYSICAL [facility] DATE OF ADMISSION : 06/08/2024 PRIMARY CARE PROVIDER: YEE ESTRADA [ [facility] } UROLOGY: Dr. Kareem Young TRANSFERRING FACILITY: Presented to [facility] ER on 06/08/2024 and transferred to [facility] on 06/08/2024 History Of Present Illness Jose G Germain is a 68 y.o. male presenting with a past medical history of coronary artery disease with history of stents, and long extensive history of bilateral ureteral and kidneys stones with history of ureteral stent placement and subsequent removal bilaterally. Patient presented to [facility] ER on 06/08/2024 and transferred to [facility] on 06/08/2024. Patient reported that he has been feeling well for 1 week. He started to have right flank pain got worse over the past 1 to 2 days. He went to the ER at [facility] and he underwent CT scan of the abdomen and pelvis which showed right hydro nephrosis and right ureterolysis 10. Patient was given IV Dilaudid. [facility] evaluation Past Medical History He [...] PM. With history of urolithiasis presented to [facility] with right-sided flank pain. He was found [...] retrograde pyelogram); Surgeon: Kareem Young MD; Location: [facility]; Service: Urology; Laterality: Left; IN 0700 1HR(A) LAMINECTOMY,LUMBAR Right 06/09/2023 Procedure: (MIF RT L5-S1 DECOMPRESSION); Surgeon: Edson Barfield MD; Location: [facility] OR; Service: Neurosurgery; Laterality: Right; 1.5HRS(A) LAMINECTOMY,PLIF BONE Bilateral 05/03/2022 Procedure: FUSION, SPINE, LUMBAR, PLIF, WITH DISCECTOMY OR LAMINECTOMY; Surgeon: Edson Barfield MD; Location: [facility] OR; Service: Neurosurgery; Laterality: Bilateral; ROTATOR [...] Blood Administered: None Grafts or Implants: 4.8 Bahraini by 28 cm right ureteral stent with [...] and draped in normal fashion. The 22 Bahraini cystoscopy sheath in addition direct vision 30 lens. Urethra normal prostate mildly obstructing. Finding the bladder that bladder inspected entirely. The right ureter orifice was cannulated with 5 Bahraini open-ended ureteral catheter. Fl uoroscopically is advanced [...] Recent Flowsheet Documentation Taken 06/08/2024 1833 by Chrisitna Vo RN Have you ever had a [...] Procedure Name Priority Date/Time Associated Diagnosis Comments NC CYSTO W/INSERT URETERAL STENT 06/09/2024 2:39 PM EDT Diagnosis unknown NC LITHOTRIPSY XTRCORP SHOCK WAVE 06/09/2024 2:39 PM [...] dictated by Dr. Brigette Sheikh. Transcribed by Roslaie Ortega PA-C. Kareem Young MD IMG DIAGNOSTIC IMAGING ORDERAB LES Final Result * (ABNORMAL) Basic Metabolic Panel (06/09/2024 5:28 AM EDT) Sodium 141 136 - 146 meq/L 06/09/2024 5:39 AM EDT [facility] Potassium 4.1 3.5 - 5.1 meq/L 06/09/2024 5:39 AM EDT [facility] Chloride 111 102 - 112 meq/L 06/09/2024 5:39 AM EDT [facility] CO2 26 21 - 32 meq/L 06/09/2024 5:39 AM EDT [facility] Anion Gap 8(L) 9 - 20 06/09/2024 5:39 AM EDT [facility] BUN 18 7 - 22 mg/dL 06/09/2024 5:39 AM EDT [facility] Creatinine 0.97 0.70 - 1.30 mg/dL 06/09/2024 5:39 AM EDT [facility] BUN/Creatinine 19 8 - 20 06/09/2024 5:39 AM EDT [facility] Glucose 107(H) 74 - 106 mg/dL 06/09/2024 5:39 AM EDT [facility] Calcium 8.3(L) 8.5 - 10.1 mg/dL 06/09/2024 5:39 AM EDT [facility] Osmolality Calc 283.6 mOsm/kg 5:39 AM EDT [facility] eGFR (mL/min/1.73m2) >60 >=60 mL/min/1.7 3m2 06/09/2024 5:39 AM EDT [facility] Comment:eGFR of <60 suggests chronic kidney disease if found over a 3 month period of time. eGFR <15 indicates renal failure. Blood Venipuncture / Unknown 06/09/2024 5:28 AM EDT 06/09/2024 5:28 AM EDT us Shannan Andrea MD LAB BLOOD ORDERABLES Final Resu lt [facility] [address] [place] [address] * PT/INR, PTT (06/08/2024 5:26 PM EDT) aPTT 28.2 22.0 - 32.0 seconds 06/08/2024 5:45 PM EDT [facility] Protime 10.8 9.0 - 12.0 seconds 06/08/2024 5:45 PM EDT [facility] INR 0.99 0.80 - 1.10 06/08/2024 5:45 PM EDT [facility] Blood Venipuncture / Unknown 06/08/2024 5:26 PM EDT 06/08/2024 5:26 PM EDT Shannan Andrea MD LAB BLOOD ORDERABLES Final Resu lt [facility] [address] [place] [id number] [phone] * (ABNORMAL) CBC - Hemogram (SJ-BKR) (06/08/2024 5:26 PM EDT) WBC 9.1 3.9 - 10.0 K/ L 06/08/2024 5:33 PM EDT [facility] RBC 4.13(L) 4.63 - 6.08 M/ L 06/08/2024 5:33 PM EDT [facility] Hemoglobin 12.6 11.2 - 15.7 GM/DL 06/08/2024 5:33 PM EDT [facility] Hematocrit 38.6(L) 40.1 - 51.0 % 06/08/2024 5:33 PM EDT [facility] MCV 94 79 - 95 fL 06/08/2024 5:33 PM EDT [facility] MCH 30.5 25.6 - 32.2 pg 06/08/2024 5:33 PM EDT [facility] MCHC 32.6 32.3 - 36.5 GM/DL 06/08/2024 5:33 PM EDT [facility] RDW 13.2 11.6 - 14.4 % 06/08/2024 5:33 PM EDT [facility] Platelets 214 163 - 369 K/CU MM 06/08/2024 5:33 PM EDT [facility] MPV 9.7 9.4 - 12.4 fL 06/08/2024 5:33 PM EDT [facility] nRBC 0(L) 1 - 5 /100 WBC 06/08/2024 5:33 PM EDT [facility] Blood Venipuncture / Unknown 06/08/2024 5:26 PM EDT 06/08/2024 5:26 PM EDT Shannan Andrea MD LAB BLOOD ORDERABLES Final Resu lt [facility] [address] [place] [address], [facility] [phone] * (ABNORMAL) Basic Metabolic Panel (06/08/2024 5:26 PM EDT) Sodium 141 136 - 146 meq/L 06/08/2024 5:49 PM EDT [facility] Potassium 4.6 3.5 - 5.1 meq/L 06/08/2024 5:49 PM EDT [facility] Chloride 109 102 - 112 meq/L 06/08/2024 5:49 PM EDT [facility] CO2 27 21 - 32 meq/L 06/08/2024 5:49 PM EDT [facility] Anion Gap 10 9 - 20 06/08/2024 5:49 PM EDT [facility] BUN 18 7 - 22 mg/dL 06/08/2024 5:49 PM EDT [facility] Creatinine 1.15 0.70 - 1.30 mg/dL 06/08/2024 5:49 PM EDT [facility] BUN/Creatinine 16 8 - 20 06/08/2024 5:49 PM EDT [facility] Glucose 94 74 - 106 mg/dL 06/08/2024 5:49 PM EDT [facility] Calcium 8.4(L) 8.5 - 10.1 mg/dL 06/08/2024 5:49 PM EDT [facility] Osmolality Calc 282.9 mOsm/kg 5:49 PM EDT [facility] eGFR (mL/min/1.73m2) >60 >=60 mL/min/1.7 3m2 06/08/2024 5:49 PM EDT [facility] Comment:eGFR of <60 suggests chronic kidney disease if found over a 3 month period of time. eGFR <15 indicates renal failure. Blood Venipuncture / Unknown 06/08/2024 5:26 PM EDT 06/08/2024 5:26 PM EDT Shannan Andrea MD LAB BLOOD ORDERABLES Final Resu lt [facility] [address] [phone] * XR chest AP portable (06/08/2024 4:55 PM EDT) Anatomical Region Laterality Modality Chest X-Ray 06/09/2024 1:51 AM EDT Impressions 06/09/2024 1:52 AM EDT No acute cardiopulmonary process. Images reviewed, interpreted, dictated and electronically signed by Devon Walker MD Voice air saw operator technology (Power Scribe) is used for the dictation of this note and sound-alike words might be erroneously placed despite reviewing this note for accuracy. Errors in dictation may reflect use of voice recognition software and not all errors in air saw operator may have been detected prior to signing. [...] electronically signed by Devon Walker MD Voice air saw operator technology (Power Scribe) is used for the dictation of this note and sound-alike words might be erroneously placed despite reviewing this note for accuracy. Errors in dictation may reflect use of voice recognition software and not all errors in air saw operator may have been detected prior to signing. [...] (MCT) 0 degrees GE MUSE T Wave [place] 0 degrees GE MUSE [place] Diagnosis No QRS complexes found, no ECG [...] Coronary atherosclerosis of unspecified type of vessel, nez perce or graft HTN (hypertension) Unspecified essential hypertension Diagnosis unknown documented in this encounter Admitting Diagnoses Diagnosis [...] over 180 Minutes, First dose on Elizabeth 4/24/25 at 0630, Please choose an indication: Urinary Tract Infection, Intra-abdominal Infection IVPB Started 06/10/2024 4:11 AM EDT 1 g 16.7 mL/hr IVPB Started 06/09/2024 8:19 PM EDT 1 g 16.7 mL/hr IVPB Started 06/09/2024 1:27 PM EDT 1 g 16.7 mL/hr HYDROcodone-acetaminophen (NORCO) 5-325 mg per tablet 1 tablet 1 tablet Every 4 hours PRN, oral, moderate pain (4-6), Starting on Thu06/08/24 at 1610, Recommended maximum dose of acetaminophen is 4000 mg from all sources in 24 hours levothyroxine (SYNTHROID) tablet 75 mcg 75 mcg Daily, oral, First dose on [place] 06/09/24 at 0900, Given 06/10/2024 8:26 AM EDT 75 mcg lidocaine (UROJET, GLYDO) 2 % jelly As needed, Starting on Elizabeth 06/09/24 at 1515, Intra-op Given 06/09/2024 3:15 PM EDT 1 Application melatonin tablet 3 mg 3 mg Every [...] Given 06/08/2024 8:44 PM EDT 100 mg documented in this encounter Active and Recently Administered Medications Times are shown in EDT. Scheduled Medication Order 06/08/2024 06/09/2024 06/10/2024 atorvastatin (LIPITOR) tablet 10 mg 10 mg Every Night, oral, First dose on Thu06/08/24 at 2100 2044 (Given - Provider: Octavio Alonzo RN) 1302 (APR Hold - Provider: Automatic Transfer Provider - Reason: Unreviewed Transfer Orders)1650 (APR Unhold - Provider: Automatic Transfer Provider)2020 (Given - Provider: Octavio Alonzo RN) ceFAZolin (ANCEF) IVPB 2 g/50 mL D5W [...] IVPB Stopped - Provider: Jailene Zendejas RN)1650 (APR Unhold - Provider: Automatic Transfer Provider)2019 (IVPB Started - Provider: Octavio Alonzo RN)231 (IVPB Stopped - Provider: Octavio Alonzo RN) 0411 (IVPB Started - Provider: Octavio Alonzo RN)0711 (IVPB Stopped - Provider: Abdiel Mandel RN) cefepime (MAXIPIME) IVPB 2 g in dextrose 5 % 50 mL (premix) Duplex (COMPLETED) 2 g Once, intravenous, Administer over 30 Minutes, On Thu06/08/24 at 1800, For 1 dose, Please choose an indication: Intra-abdominal Infection, Urinary Tract Infection 2044 (IVPB Started - Provider: Octavio Alonzo RN)2114 (IVPB Stopped - Provider: Octavio Alonzo RN) cefTRIAXone (ROCEPHIN) IVPB 2 g in dextrose 5 % 50 mL (premix) (CANCELED) 2 g Every 24 hours, intravenous, at 100 mL/hr, First dose on Thu06/08/24 at 1630, Please choose an indication: Urinary Tract Infection 162 (IVPB Started - Provider: Christina Vo RN)1721 [...] Transfer Provider) 0826 (Given - Provider: Abdiel Mandel RN) pantoprazole (PROTONIX) EC tablet 40 mg 40 [...] Transfer Provider) 0826 (Given - Provider: Abdiel Mandel RN) phenazopyridine (PYRIDIUM) tablet 95 mg 95 mg [...] 0826 (Given - Provider: Abdiel Mandel RN) pregabalin (LYRICA) capsule 100 mg 100 mg 3 times daily, oral, First dose on Thu06/08/24 at 2100 2043 (Given - Provider: Octavio Alonzo RN) [...] (New Bag - Provider: Octavio Alonzo RN) 1441 (Continued by Anesthesia - Provider: Abhay Barbour [...] mg from all sources in 24 hours 2044 (Given - Provider: Octavio Alonzo RN) 1302 [...] % jelly (CANCELED) As needed, Starting on Thu06/09/24 at 1515, Intra-op 1515 (Given - Provider: Kareem Young MD) melatonin tablet 3 mg 3 mg Every Night PRN, oral, insomnia, Starting on Thu06/08/24 at 1610 2044 (Given - Provider: Octavio Alonzo RN) 1302 (APR Hold - Provider: Automatic Transfer Provider - Reason: Unreviewed Transfer Orders)1650 ([facility] Unhold - Provider: Automatic Transfer Provider)2020 (Given - Provider: Octavio Alonzo RN) morphine injection 2 mg 2 mg Every 4 hours PRN, intravenous, severe pain (7-10), Starting on Thu06/08/24 at 1610 1628 (Given - Provider: Christina Vo, MATIAS)2042 (Given - Provider: Octavio Alonzo, MATIAS) 0125 (Given - Provider: Octavio Alonzo, RN)0630 (Given - Provider: Octavio Alonzo, MATIAS)1111 (Given - Provider: Abdiel Mandel RN)1302 (APR [...] Transfer Provider - Reason: Unreviewed Transfer Orders)1650 ([facility] Unhold - Provider: Automatic Transfer Provider) documented in this encounter Care Teams Emergency Response Coordinator Relationship Specialty Start Date End Date Yee Estrada [address] [place] [phone] PCP - General 05/14/22 06/09/24 documented as of this encounter
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
--- OUTSIDE RECORDS SUMMARY | 2024-07-12 13:38 | XMS_ITS | Encounter Summary ---
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 Name Role Phone Unavailable Primary Care Provider Unavailabl e Reason for Referral * Diagnostic X-Ray (Emergency) - New Request Specialty Diagnoses / Procedures Referred By Contac t Referred To Contact Diagnoses Calculus of kidney Procedures X-ray abdomen KUB 1 view Shi Alvarenga PA [address] [place] [address] Phone: tel: fax: Referral ID Status Reason Start Date Expiration Date V isits Requested Visits Authorized [id number] New Request 07/12/2024 07/12/2025 1 1 Reason for Visit * Diagnostic X-Ray (Emergency) - New Request Specialty Diagnoses / Procedures Referred By Contac t Referred To Contact Diagnoses Calculus of kidney Procedures X-ray abdomen KUB 1 view Shi Alvarenga PA [address] [place] [address] Phone: tel: fax: Referral ID Status Reason Start Date Expiration Date V isits Requested Visits Authorized [id number] New Request 07/12/2024 07/12/2025 1 1 Encounter Details Date Type Department Care Team (Late st Contact Info) Description 07/12/2024 1:38 PM EDT - 07/12/2024 11:59 PM EDT Hospital Encounter [facility] [place] [facility] [place] [address] [place] [address] Shi Alvarenga PA [address] [facility] [address] [place] [address] Calculus of kidney Discharge Disposition: Home or [...] your living situation today? I [facility] 06/08/2024 Think about [...] Do you speak a language other than Peruvian at [facility]? No 06/08/2024 Do you want help with [...] Sheikh. Transcribed by Helena Sanz PA-C. Shi [facility] ORDERABLES Final Result documented in this encounter Visit Diagnoses Diagnosis Calculus of kidney documented in this encounter Care Teams Cigarette Carton Sealer Relationship Specialty Start Date End Date [place] [id number] [address], [address] [place] [address] Advanced Registered Nurse Practitioner Primary Care 06/10/24 documented as of this encounter
--- OUTSIDE RECORDS SUMMARY | 2024-07-18 22:41 | XMS_ITS | Encounter Summary ---
Author Organization [employer] Address [address] [place] [address] Care Team Providers Care Exploration Geologist Name Role Phone [facility], Provider Not In The System MD Primary Care Provider Unavailable Reason for Visit * Reason Comments Abdominal Pain Pt reports severe ri ght sided flank pain post urethral stent removal. Encounter Details Date Type Department Care Team (Late st Contact Info) Description 07/18/2024 10:41 PM EDT - 07/19/2024 2:16 AM EDT Emergency [facility] Emergency Department [address] [place] [address] Kareem Martel MD [address] [place] [address] Right ureteral stone (Primary Dx); Renal colic on right side Discharge Disposition: Home or Self Care Social [...] Do you [facility] a [facility] No 06/08/2024 Do you want help [...] Sign Reading Time Taken Comments Blood Pressure 120/83 07/19/2024 1:36 AM EDT Pulse 59 07/19/2024 1:36 AM EDT Temperature 36.7 C (98 F) 07/18/2024 10:45 PM EDT Respiratory Rate 18 07/18/2024 10:45 PM EDT Oxygen Saturation 99% 07/19/2024 1:36 AM EDT Inhaled Oxygen Concentration - - Weight 99.8 kg (220 lb) 07/18/2024 10:45 PM EDT Height 185.4 cm (6' 1 ) 07/18/2024 10:45 PM EDT Body Mass Index 29.03 07/18/2024 10:45 PM EDT documented in this encounter Discharge Instructions * Discharge Instructions* Kareem Martel MD - 07/19/2024 2:07 AM EDT Tonight the CAT scan indicates that you were passing an 8 mm kidney stone that was actually passinginto the bladder at the time of the CAT scan. I did send in appropriate pain control as well as some antibiotic therapy for the next 5 days. Takeas directed Prescriptions likewise sent in for Flomax, Pyridium, Zofran. Return anytime for worsening signs or symptoms such as intractable pain. Follow-up with Dr. Young as scheduled Thank you for coming to our emergency department today for evaluation. We are happy to see you at any time should your symptoms change or fail to improve. Unless otherwise specified, please follow-up with your primary care within 1 to 3 days or for repeat evaluation. If you receive a work note today, it will be on the last page of this packet. If you do not have a physician, [facility] has a referral service called [email or web address]. You may call the number during business hours at [phone] for assistance in finding a primary care physician. At discharge from the emergency department, you may have pending final laboratory information and/or radiography interpretations. This may include laboratory values such as blood cultures, urine cultures, other outstanding laboratory tests. If any of these tests are positive and are immediately pert inent to emergency care, we will notify you by phone. If we need to change the antibiotic therapy for example, we will notify you by phone and electronically res[facility] the [facility]. If you do not hear from us, please finish the therapy initiated at the time of discharge from the emergency department. As noted above, you may also have some final xray interpretations from the radiologist pending at the time of discharge from the emergency department. If there are discrepancies, we will notify you by phone and discuss any change in treatment plan at that time. * Attachments The following attachments cannot be sent through Care Everywhere. * Kidney Stones Yrix-[id number] (Guinean) documented in this encounter Medications at Time [...] Take 12.5 mg by mouth daily. nitrofurantoin, macrocrystal-monohyd rate, (MACROBID) 100 MG capsule Take 1 capsule [...] by mouth as needed for erectile dysfunction. cefdinir (OMNICEF) 300 mg capsule Take 1 capsule (300 mg total) by mouth 2 (two) times daily for 5 days. 10 capsule 07/19/2024 5 ondansetron (ZOFRAN-ODT) 4 MG disintegrating tablet Take 1 tablet (4 mg total) by mouth every 6 (six) hours as needed for nausea for up to 7 days. 20 tablet 07/19/2024 5 oxyCODONE-acetaminop hen (PERCOCET) 5-325 mg per tablet 1-2 po q6h prn severe pain. 16 tablet 07/19/2024 5 phenazopyridine (PYRIDIUM) 200 MG tablet Take 1 tablet (200 mg total) by mouth 3 (three) times daily with meals for 5 days. 15 tablet 07/19/2024 5 tamsulosin (FLOMAX) 0.4 mg cap 24 hr capsule Take 1 capsule (0.4 mg total) by mouth daily for 14 days. 14 capsule 07/19/2024 5 documented as of this encounter ED Notes * Kareem Martel MD - 07/18/2024 10:45 PM EDT Subjective Chief Complaint: Abdominal Pain (Pt reports severe right sided flank pain post urethral stent removal. ) HPI Patient is a 68-year-old male with past medical history of kidney stones status post recent lithotripsy, hypertension, hyperlipidemia, chronic back pain who presents today with flank pain x 2 weeks worse today. Of note on 06/09 patient was admitted with a 12 mm obstructing stone complicated by UTI. He underwent lithotripsy with stent placement by his urologist Dr. Young and was discharged with a course of Macrobid. Patient tells me he later had a PICC line placed and received IV antibiotic infusions due to continued symptoms. Culture from 06/26 showed Staphylococcus hemolyticus. 1 week ago he was seen in the office with UTI symptoms and was given a dose of Rocephin. Since then he reports worsening right flank pain, significantly worse today. He has also been having a subjective fever and nausea with continued dysuria. Today he contacted his urologist and was told to come to the ER for further evaluation. Patient History Past Medical History: Diagnosis Date HTN (hypertension) 06/09/2024 Hyperlipidemia Kidney stones Lumbar herniated disc 05/03/2022 Myocardial infarction (HCC) Skin cancer Thyroid cancer (HCC) Past Surgical History: Procedure Laterality Date ANTERIOR FUSION LUMBAR SPINE CHOLECYSTECTOMY CYSTOSCOPY,INSERTION URETERAL STENTS Right 06/09/2024 Procedure: CYSTOSCOPY, WITH URETERAL STENT INSERTION; Surgeon: Kareem Young MD; Location: [facility]; Service: Urology; Laterality: Right; CYSTOSCOPY,URETEROSCOPY W/ LASER LITHOTRIPSY Left 05/15/2023 Procedure: (BILATERAL URETEROSCOPY, LASER LITHOTRIPSY, retrograde pyelogram); Surgeon: Kareem Young MD; Location: [facility]; Service: Urology; Laterality: Left; IN 0700 1HR(A) LAMINECTOMY,LUMBAR Right 06/09/2023 Procedure: (MIF RT L5-S1 DECOMPRESSION); Surgeon: Edson Barfield MD; Location: [facility] OR; Service: Neurosurgery; Laterality: Right; 1.5HRS(A) LAMINECTOMY,PLIF BONE Bilateral 05/03/2022 Procedure: FUSION, SPINE, LUMBAR, PLIF, WITH DISCECTOMY OR LAMINECTOMY; Surgeon: Edson Barfield MD; Location: [facility] OR; Service: Neurosurgery; Laterality: Bilateral; LITHOTRIPSY,EXTRACORPOREAL SHOCK WAVE (ESWL) Right 06/09/2024 Procedure: LITHOTRIPSY,EXTRACORPOREAL SHOCK WAVE (ESWL); Surgeon: Kareem Young MD; Location: [facility]; Service: Urology; Laterality: Right; ROTATOR CUFF REPAIR Right ROTATOR CUFF REPAIR Left Cadaver bicep placed. skin cancer left leg THYROIDECTOMY THYROIDECTOMY, PARTIAL Family History Problem Relation Name Age of Onset Heart disease Father Stroke Brother Heart disease Brother Heart disease Paternal Grandfather Social History Tobacco Use Smoking status: Never Passive exposure: Never Smokeless tobacco: Never Substance Use Topics Alcohol use: Yes Alcohol/week: 2.0 standard drinks of alcohol Types: 1 Cans of beer, 1 Shots of liquor per week I reviewed the HPI, ROS and PFSH documentation recorded by others in the medical record and supplemented my note as needed. Review of Systems Review of Systems Physical Exam ED Triage Vitals Encounter Vitals Group BP Systolic BP Percentile Diastolic BP Percentile Pulse Resp Temp Temp src SpO2 Weight Height Head Circumference Peak Flow Pain Score Pain Loc Pain Education Exclude from Growth Chart Physical Exam Constitutional: General: He is not in acute distress. Appearance: Normal appearance. He is not ill-appearing. HENT: Head: Normocephalic and atraumatic. Nose: Nose normal. Mouth/Throat: Mouth: Mucous membranes are moist. Pharynx: Oropharynx is clear. Eyes: Conjunctiva/sclera: Conjunctivae normal. Cardiovascular: Rate and Rhythm: Normal rate and regular rhythm. Pulmonary: Effort: Pulmonary effort is normal. Breath sounds: Normal breath sounds. Abdominal: General: Bowel sounds are normal. There is no distension. Palpations: Abdomen is soft. Tenderness: There is abdominal tenderness in the suprapubic area. There is right CVA tenderness andleft CVA tenderness. Musculoskeletal: General: No tenderness. Normal range of motion. Cervical back: Normal range of motion and neck supple. Skin: General: Skin is warm and dry. Neurological: General: No focal deficit present. Mental Status: He is alert and oriented to person, place, and time. Psychiatric: Mood and Affect: Mood normal. Behavior: Behavior normal. Neurological Exam Mental Status Alert. Oriented to person, place, and time. Ortho Exam ED Course & MDM Medications phenazopyridine (PYRIDIUM) tablet 190 mg (has no administration in time range) oxyCODONE-acetaminophen (PERCOCET) 5-325 mg per tablet 1 tablet (has no administration in time range) cefdinir (OMNICEF) capsule 300 mg (has no administration in time range) ondansetron (ZOFRAN-ODT) disintegrating tablet 4 mg (has no administration in time range) sodium chloride 0.9% (NS) bolus (0 mLs intravenous Stopped 07/19/2433) morphine injection 4 mg (4 mg intravenous Given 07/18/242326) ondansetron (ZOFRAN) injection 4 mg (4 mg intravenous Given 07/18/242326) iopamidoL (ISOVUE-370) 370 mg iodine /mL (76 %) injection 75 mL (75 mLs intravenous Given 07/19/2423) Results for orders placed or performed during the hospital encounter of 07/18/24 CBC with Auto Diff Result Value Ref Range WBC 8.6 3.9 - 10.0 K/??L RBC 4.54 (L) 4.63 - 6.08 M/??L Hemoglobin 14.1 11.2 - 15.7 GM/DL Hematocrit 42.0 40.1 - 51.0 % MCV 93 79 - 95 fL MCH 31.1 25.6 - 32.2 pg MCHC 33.6 32.3 - 36.5 GM/DL RDW 13.6 11.6 - 14.4 % Platelets 236 163 - 369 K/CU MM MPV 9.7 9.4 - 12.4 fL % Neutros 62 34 - 68 % % Lymphs 24 19 - 53 % % Monos 9 4 - 13 % % Eos 4 1 - 7 % % Baso 1 0 - 1 % # Neutros 5.33 1.56 - 6.13 K/??L # Lymphs 2.05 1.18 - 3.74 K/??L # Monos 0.74 0.24 - 0.82 K/??L # Eos 0.36 0.04 - 0.54 K/??L # Baso 0.08 0.01 - 0.08 K/??L Immature Granulocytes-Relative 0.20 0.00 - 0.60 % # IG 0.02 0.00 - 0.05 K/uL Comprehensive metabolic panel Result Value Ref Range Sodium 140 136 - 146 meq/L Potassium 4.1 3.5 - 5.1 meq/L Chloride 109 102 - 112 meq/L CO2 28 21 - 32 meq/L Calcium 9.2 8.5 - 10.1 mg/dL Glucose 115 (H) 74 - 106 mg/dL BUN 28 (H) 7 - 22 mg/dL Creatinine 0.93 0.70 - 1.30 mg/dL BUN/Creatinine 30 (H) 8 - 20 Albumin 4.0 3.4 - 5.0 g/dL Alkaline Phosphatase 169 (H) 27 - 136 U/L ALT 47 12 - 78 U/L AST 37 5 - 37 U/L Total Bilirubin 0.3 0.2 - 1.3 mg/dL Protein, Total 7.6 6.4 - 8.2 gm/dL Anion Gap 7 (L) 9 - 20 A/G Ratio 1.1 1.1 - 2.5 Globulin 3.6 1.5 - 4.5 g/dL Osmolality Calc 285.8 mOsm/kg eGFR (mL/min/1.73m2) >60 >=60 mL/min/1.73m2 Lactic Acid with reflex (SJ) Result Value Ref Range Lactic Acid Level (mmol/L) 1.0 0.4 - 2.0 mmol/L Urinalysis, Reflex Microscopic and Culture If Indicated Result Value Ref Range Color, UA Light Yellow Clarity, UA Turbid (A) Clear Specific [place], UA 1.022 1.005 - 1.030 pH, UA 5.5 (L) 6.0 - 8.0 Leukocytes, UA Negative Negative Nitrite, UA Negative Negative Protein, UA Negative Negative Glucose, UA Normal Normal Ketones, UA Negative Negative Bilirubin, UA Negative Negative Blood, UA 3+ (A) Negative Urobilinogen, UA Normal Normal Specimen Source Urine, Clean Catch C-Reactive Protein Result Value Ref Range CRP <0.30 0.00 - 0.90 mg/dL Urinalysis Microscopic Only Result Value Ref Range WBC, UA 6-10 (A) None Seen /HPF RBC, UA Too Numerous To Count (A) None Seen /HPF Bacteria, UA 1+ (A) Trace, None Seen Mucus 1+ (A) None Seen SQUAMOUS EPITHELIAL None Seen None Seen /HPF CT ABDOMEN/PELVIS WITH IV CONTRAST Standard Protocol (Results Pending) ED Course as of 07/19/24 0214 TuJul 19, 2024 [address] Martel who will assume care, CT scan pending. [RS] [address] scan without contrast reveals right-sided hydronephrosis with small right UVJ stone. [TC] 0201 Patient resting much more comfortably at this time. Will place on cefdinir for 5 days, pain control, Flomax as well as some Pyridium. Close follow-up with Dr. Young [TC] ED Course User Index [RS] Ariella Grant PA-C [TC] Kareem Martel MD Preliminary Report NAME: TAY THOMAS D.O.B. / SEX: 1955 / Male MRN / ACC#: [id number] / [id number] ORDERING PHYSICIAN: Kareem Martel M.D., EXAM REQUESTED: [id number]--KS ABDOMEN & PELVIS W/CONTRAST FACILITY: [facility] DATE: 07/19/2024 RADIOLOGIST NAME: Saroj Cuevas Colin TECHNIQUE: null CLINICAL HISTORY: PT c/o abd and flank pain w/ fever, kidney stone suspected, hx of kidney stones x5 weeks ago, hx oflithotripsy ESWL 05/2024, 04/2023, Cholecystectomy 5+ yrs, occasional smoker, hx of thyroid cancer 15+ yrs COMPARISON: null FINDINGS: CT abdomen and pelvis with contrast Comparison: None provided Findings: There is a calcified granuloma in the right lower lobe. There is coronary artery calcification. There is hepatic steatosis. Patient is status post cholecystectomy. The pancreas, spleen, and adrenal glands are unremarkable. There are a few small bilateral nonobstructing renal stones. There is moderate right hydronephrosis. There are a few adjacent stones at the right ureterovesical junction. The largest stone measures 8 mm and is protruding into the bladder lumen either within an edematous UVJ or just passed through the UVJ. There are few additional small stones slightly more proximal within the UVJ measuring 1-2 mm. The appendix is normal. There is colonic diverticulosis. There are no enlarged lymph nodes. The aorta is normal in diameter. The prostate is mildly enlarged. Patient is status post instrumented fusion of L4-5. There is no acute fracture or suspicious lytic or sclerotic lesion. IMPRESSION: Signed by Saroj Cuevas Colin on 07/19/2024 1:52:09 AM, Eastern Time MD GILLES This is a preliminary report. This report is not an official interpretation. This report may contain limited or incomplete information and it is subject to review and change by the interpreting physician. A final report with the official interpretation ofthe imaging examination or procedure ordered will be communicated at a later time. The final report may contain additional or different information, findings, and conclusions than this preliminary report. IMPRESSION: 1. Few adjacent stones at the right ureterovesical junction with moderate hydronephrosis. 2. Small bilateral nonobstructing renal stones. 3. Additional chronic findings as a MEDICAL DECISION MAKING Number and Complexity of Problems Differential Diagnosis: including but not limited to ureteral stone, pyonephritis, hydronephrosis MDM Data (x) External documents reviewed: Old chart reviewed () EKG interpretation: noted on chart if performed (x) Radiology interpretation, if performed, including but not limited to CT, xray, ultrasound: CT abdomen pelvis without contrast () Tests considered but not ordered: () Decision rules/scores evaluated: () Discussed with: n/a (x) Labs obtained and reviewed: Labs Reviewed CBC W/ AUTO DIFF - Abnormal; Notable for the following components: Result Value RBC 4.54 (*) All other components within normal limits Narrative: When CBC w/ Auto Diff is ordered the lab will add a Manual Differential as a quality check at no additional charge if: Lymphocytes greater than seventy five percent with normal or increased WBC Monocytes greater than Fifteen percent Basophil greater than four percent Bands >10% or several immature myeloids are seen on scan Blast? Flag noted Atypical Lymph flag noted COMPREHENSIVE METABOLIC PANEL - Abnormal; Notable for the following components: Glucose 115 (*) BUN 28 (*) BUN/Creatinine 30 (*) Alkaline Phosphatase 169 (*) Anion Gap 7 (*) All other components within normal limits URINALYSIS, REFLEX MICROSCOPIC AND CULTURE IF INDICATED - Abnormal; Notable for the following components: Clarity, UA Turbid (*) pH, UA 5.5 (*) Blood, UA 3+ (*) All other components within normal limits URINALYSIS MICROSCOPIC - Abnormal; Notable for the following components: WBC, UA 6-10 (*) RBC, UA Too Numerous To Count (*) Bacteria, UA 1+ (*) Mucus 1+ (*) All other components within normal limits LACTIC ACID WITH REFLEX - Normal C-REACTIVE PROTEIN - Normal BLOOD CULTURE BLOOD CULTURE Treatment and Disposition ED Course: [IV was established. Appropriate laboratory valuation was performed. CT abdomen pelvis without contrast was undertaken. This did reveal that he was passing an 8 mm right-sided ureteral stone. At the time of the CT it was actually being excreted into the bladder. On reexam patient is significantly improved. Social Determinants of Health that impact treatment or disposition: Pt has no adverse social determinants that impact treatment or disposition. Shared decision making: Treatment plan and return precautions (if applicable) discussed with the patient Prescription Drug Management: New Prescriptions CEFDINIR (OMNICEF) 300 MG CAPSULE Take 1 capsule (300 mg total) by mouth 2 (two) times daily for 5 days. ONDANSETRON (ZOFRAN-ODT) 4 MG DISINTEGRATING TABLET Take 1 tablet (4 mg total) by mouth every 6 (six) hours as needed for nausea for up to 7 days. OXYCODONE-ACETAMINOPHEN (PERCOCET) 5-325 MG PER TABLET 1-2 po q6h prn severe pain. PHENAZOPYRIDINE (PYRIDIUM) 200 MG TABLET Take 1 tablet (200 mg total) by mouth 3 (three) times daily with meals for 5 days. TAMSULOSIN (FLOMAX) 0.4 MG CAP 24 HR CAPSULE Take 1 capsule (0.4 mg total) by mouth daily for 14 days. Code status and discussion: Patient is currently a full code status Assessment & Plan Clinical Impression Diagnosis Comment Added By Time Added Right ureteral stone Kareem Martel MD 07/19/2024 2:02 AM Renal colic on right side Kareem Martel MD 07/19/2024 2:14 AM Disposition Discharge [1] - 07/19/2024 2:02 AM New Prescriptions CEFDINIR (OMNICEF) 300 MG CAPSULE Take 1 capsule (300 mg total) by mouth 2 (two) times daily for 5 days. ONDANSETRON (ZOFRAN-ODT) 4 MG DISINTEGRATING TABLET Take 1 tablet (4 mg total) by mouth every 6 (six) hours as needed for nausea for up to 7 days. OXYCODONE-ACETAMINOPHEN (PERCOCET) 5-325 MG PER TABLET 1-2 po q6h prn severe pain. PHENAZOPYRIDINE (PYRIDIUM) 200 MG TABLET Take 1 tablet (200 mg total) by mouth 3 (three) times daily with meals for 5 days. TAMSULOSIN (FLOMAX) 0.4 MG CAP 24 HR CAPSULE Take 1 capsule (0.4 mg total) by mouth daily for 14 days. Contact information for follow-up Kareem Young MD Specialty: Urology [address] [place] [address] Next Steps: Schedule an appointment as soon as possible for a visit Instructions: As needed Electronically Signed By Kareem Martel MD 07/19/24 0214 documented in this encounter Plan of Treatment Not on file documented as of this encounter Procedures Procedure Name Priority Date/Time Associated Diagnosis Comments CT ABDOMEN/PELVIS WITH IV CONTRAST STAT 07/19/2024 12:28 AM EDT URINALYSIS, REFLEX MICROSCOPIC AND CULTURE IF INDICATED STAT 07/19/2024 12:09 AM EDT URINALYSIS MICROSCOPIC STAT 12:09 AM EDT CBC W/ AUTO DIFF STAT 07/18/2024 11:2 8 PM EDT LACTIC ACID WITH REFLEX STAT 07/18/2024 11:28 PM EDT BLOOD CULTURE STAT 07/18/2024 11:28 PM EDT BLOOD CULTURE STAT 07/18/2024 11:28 PM EDT C-REACTIVE PROTEIN STAT 07/18/2024 11 :27 PM EDT COMPREHENSIVE METABOLIC PANEL STAT 07/18/2024 11:27 PM EDT documented in this encounter Results * CT ABDOMEN/PELVIS WITH IV CONTRAST Standard Protocol (07/19/2024 12:28 AM EDT) Anatomical Region Laterality Modality Abdomen, Pelvis Computed Tomogra phy (CT) 07/19/2024 5:46 AM EDT Impressions 07/19/2024 5:50 AM EDT Small nonobstructing renal stones. Moderate right hydronephrosis and hydroureter secondary to several right UVJ stones up to 8 mm. Images reviewed, interpreted, and dictated by Darryl Clark MD Narrative 07/19/2024 5:[address] SCAN OF THE ABDOMEN AND PELVIS WITH CONTRAST HISTORY: Abdomen and flank pain and fever. Kidney stone suspected.. PROCEDURE: Axial CT images were obtained from the lung bases to the pubic symphysis following IV contrast administration. Coronal and sagittal reformatted images were also obtained and reviewed. This study was performed with techniques to keep radiation doses as low as reasonably achievable, (ALARA). Individualized dose reduction techniques using automated exposure control or adjustment of mA and/or kV according to the patient size were employed. COMPARISON: June 08, 2024. FINDINGS: LOWER CHEST: The heart is normal in size. Severe left coronary artery calcifications are noted. Lung bases are clear. ABDOMEN/PELVIS: Liver, gallbladder and bile ducts: Fatty infiltration of the liver is noted. Postoperative changes are seen from cholecystectomy. No significant biliary ductal dilatation. Adrenal glands: The adrenal glands are morphologically unremarkable without suspicious lesion. Kidneys, ureters and urinary bladder: Several small bilateral nonobstructing renal stones are present. There is moderate right hydronephrosis and hydroureter . Several stones are seen at the level of the right UVJ with the largest one measuring 8 mm at the right UVJ orifice. Spleen: The spleen is normal in size. Pancreas: The pancreas is unremarkable. Gastrointestinal system and mesentery: There is no evidence of bowel obstruction. The appendix is unremarkable. Multiple sigmoid diverticula are noted. No significant mesenteric inflammation. Lymph nodes: No pathologically enlarged abdominal or pelvic lymph nodes are present. Vessels: The abdominal aorta is normal in caliber. The celiac trunk, superior mesenteric artery, inferior mesenteric artery and their branch vessels appear grossly patent. The superior mesenteric vein, splenic vein and main portal veins are patent. The inferior vena cava and hepatic veins are unremarkable. Peritoneum: No free intraperitoneal fluid or pneumoperitoneum. Pelvic viscera: No acute findings. Body wall: No acute findings. No significant body wall hernias. Bones: Postoperative changes are seen from fusion at L4-5. Degenerative changes are noted in the lumbar spine and lower thoracic spine. Procedure Note Darryl Clark MD - 07/19/2024 CT SCAN OF THE ABDOMEN AND PELVIS WITH CONTRAST HISTORY: Abdomen and flank pain and fever. Kidney stone suspected.. PROCEDURE: Axial CT images were obtained from the lung bases to the pubic symphysis following IV contrast administration. Coronal and sagittal reformatted images were also obtained and reviewed. This study was performed with techniques to keep radiation doses as low as reasonably achievable, (ALARA). Individualized dose reduction techniques using automated exposure control or adjustment of mA and/or kV according to the patient size were employed. COMPARISON: June 08, 2024. FINDINGS: LOWER CHEST: The heart is normal in size. Severe left coronary artery calcifications are noted. Lung bases are clear. ABDOMEN/PELVIS: Liver, gallbladder and bile ducts: Fatty infiltration of the liver is noted. Postoperative changes are seen from cholecystectomy. No significant biliary ductal dilatation. Adrenal glands: The adrenal glands are morphologically unremarkable without suspicious lesion. Kidneys, ureters and urinary bladder: Several small bilateral nonobstructing renal stones are present. There is moderate right hydronephrosis and hydroureter . Several stones are seen at the level of the right UVJ with the largest one measuring 8 mm at the right UVJ orifice. Spleen: The spleen is normal in size. Pancreas: The pancreas is unremarkable. Gastrointestinal system and mesentery: There is no evidence of bowel obstruction. The appendix is unremarkable. Multiple sigmoid diverticula are noted. No significant mesenteric inflammation. Lymph nodes: No pathologically enlarged abdominal or pelvic lymph nodes are present. Vessels: The abdominal aorta is normal in caliber. The celiac trunk, superior mesenteric artery, inferior mesenteric artery and their branch vessels appear grossly patent. The superior mesenteric vein, splenic vein and main portal veins are patent. The inferior vena cava and hepatic veins are unremarkable. Peritoneum: No free intraperitoneal fluid or pneumoperitoneum. Pelvic viscera: No acute findings. Body wall: No acute findings. No significant body wall hernias. Bones: Postoperative changes are seen from fusion at L4-5. Degenerative changes are noted in the lumbar spine and lower thoracic spine. IMPRESSION: Small nonobstructing renal stones. Moderate right hydronephrosis and hydroureter secondary to several right UVJ stones up to 8 mm. Images reviewed, interpreted, and dictated by Darryl Clark MD us Ariella Grant PA-C [facility] [place] ORDERABLES Final Re sult * (ABNORMAL) Urinalysis Microscopic Only (07/19/2024 12:09 AM EDT) WBC, UA 6-10(A) None Seen /HPF 07/19/2024 12:21 AM EDT [facility] RBC, UA Too Numerous To Count(A) None Seen /HPF 07/19/2024 12:21 AM EDT [facility] Bacteria, UA 1+(A) Trace, None Seen 07/19/2024 12:21 AM EDT [facility] Mucus 1+(A) None Seen 07/19/2024 12:21 AM EDT [facility] SQUAMOUS EPITHELIAL None Seen None Seen /HPF 07/19/2024 12:21 AM EDT [facility] Urine URINE SPECIMEN COLLECTION, CLEAN CATCH / Unknown 07/19/2024 12:09 AM EDT 07/19/2024 12:10 AM EDT us Ariella Grant PA-C URINE ORDERABLES Final Res ult [facility] [address] [email or web address] [address] [phone] * (ABNORMAL) Urinalysis, Reflex Microscopic and Culture If Indicated (07/19/2024 12:09 AM EDT) Color, UA Light Yellow 07/19/2024 12:21 AM EDT [facility] Clarity, UA Turbid(A) Clear 07/19/2024 12:21 AM EDT [facility] Specific [place], UA 1.022 1.005 - 1.030 07/19/2024 12:21 AM EDT [facility] pH, UA 5.5(L) 6.0 - 8.0 07/19/2024 12:21 AM EDT [facility] Leukocytes, UA Negative Negative 07/19/2024 12:21 AM EDT [facility] Nitrite, UA Negative Negative 07/19/2024 12:21 AM EDT [facility] Protein, UA Negative Negative 07/19/2024 12:21 AM EDT [facility] Glucose, UA Normal Normal 07/19/2024 12:21 AM EDT [facility] Ketones, UA Negative Negative 07/19/2024 12:21 AM EDT [facility] Bilirubin, UA Negative Negative 07/19/2024 12:21 AM EDT [facility] Blood, UA 3+(A) Negative 07/19/2024 12:21 AM EDT [facility] Urobilinogen, UA Normal Normal 07/19/2024 12:21 AM EDT [facility] Specimen Source Urine, Clean Catch 07/19/2024 12:21 AM EDT [facility] Urine URINE SPECIMEN COLLECTION, CLEAN CATCH / Unknown 07/19/2024 12:09 AM EDT 07/19/2024 12:10 AM EDT us Ariella Grant PA-C URINE ORDERABLES Final Res ult [facility] [address] [place] [address], [facility] [phone] * Blood Culture (07/18/2024 11:28 PM EDT) Result No growth in 5 days 07/24/2024 10:01 AM EDT [facility] Blood 07/18/2024 11:2 8 PM EDT 07/18/2024 11:28 PM EDT us Ariella Grant PA-C MICROBIOLOGY - GENERAL ORD ERABLES Final Result Performing Organization Address City/[facility] [address]/ZIP Co de Phone Number [facility] [address] [phone] * Blood Culture (07/18/2024 11:28 PM EDT) Result No growth in 5 days 07/24/2024 10:01 AM EDT [facility] Blood 07/18/2024 11:2 8 PM EDT 07/18/2024 11:28 PM EDT Ariella Grant PA-C MICROBIOLOGY - GENERAL ORD ERABLES Final Result [facility] [address] [place] [address], [facility] [phone] * Lactic Acid with reflex (SJ) (07/18/2024 11:28 PM EDT) Lactic Acid Level (mmol/L) 1.0 0.4 - 2.0 mmol/L 07/18/2024 11:58 PM EDT [facility] Comment:If a Lactic Acid Lev el with Reflex if Indicated result is greater than 2.0, a Lactic Acid Level will be ordered to be collected 2 hours after the original collection time. Blood 07/18/2024 11:2 8 PM EDT 07/18/2024 11:28 PM EDT us Ariella Grant PA-C LAB BLOOD ORDERABLES Final Result [facility] [address] [phone] * (ABNORMAL) CBC with Auto Diff (07/18/2024 11:28 PM EDT) Pathologist [facility] WBC 8.6 3.9 - 10.0 K/ L 07/18/2024 11:32 PM EDT [facility] RBC 4.54(L) 4.63 - 6.08 M/ L 07/18/2024 11:32 PM EDT [facility] Hemoglobin 14.1 11.2 - 15.7 GM/DL 07/18/2024 11:32 PM EDT [facility] Hematocrit 42.0 40.1 - 51.0 % 07/18/2024 11:32 PM EDT [facility] MCV 93 79 - 95 fL 07/18/2024 11:32 PM EDT [facility] MCH 31.1 25.6 - 32.2 pg 07/18/2024 11:32 PM EDT [facility] MCHC 33.6 32.3 - 36.5 GM/DL 07/18/2024 11:32 PM EDT [facility] RDW 13.6 11.6 - 14.4 % 07/18/2024 11:32 PM EDT [facility] Platelets 236 163 - 369 K/CU MM 07/18/2024 11:32 PM EDT [facility] MPV 9.7 9.4 - 12.4 fL 07/18/2024 11:32 PM EDT [facility] % Neutros 62 34 - 68 % 07/18/2024 11:32 PM EDT [facility] % Lymphs 24 19 - 53 % 07/18/2024 11:32 PM EDT [facility] % Monos 9 4 - 13 % 07/18/2024 11:32 PM EDT [facility] % Eos 4 1 - 7 % 07/18/2024 11:32 PM EDT [facility] % Baso 1 0 - 1 % 07/18/2024 11:32 PM EDT [facility] # Neutros 5.33 1.56 - 6.13 K/ L 07/18/2024 11:32 PM EDT [facility] # Lymphs 2.05 1.18 - 3.74 K/ L 07/18/2024 11:32 PM EDT [facility] # Monos 0.74 0.24 - 0.82 K/ L 07/18/2024 11:32 PM EDT [facility] # Eos 0.36 0.04 - 0.54 K/ L 07/18/2024 11:32 PM EDT [facility] # Baso 0.08 0.01 - 0.08 K/ L 07/18/2024 11:32 PM EDT [facility] Immature Granulocytes-Re lative 0.20 0.00 - 0.60 % 07/18/2024 11:32 PM EDT [facility] # IG 0.02 0.00 - 0.05 K/uL 07/18/2024 11:32 PM EDT [facility] Blood 07/18/2024 11:2 8 PM EDT 07/18/2024 11:28 PM EDT Narrative [facility] - 07/18/2024 11:32 PM EDT When CBC w/ Auto Diff is ordered the lab will add a Manual Differential as a quality check at no additional charge if: Lymphocytes greater than seventy five percent with normal or increased WBC Monocytes greater than Fifteen percent Basophil greater than four percent Bands >10% or several immature myeloids are seen on scan Blast? Flag noted Atypical Lymph flag noted Ariella NOLAND-Tess LAB BLOOD ORDERABLES Final Result [facility] [address] [place] [address], [facility] [phone] * C-Reactive Protein (07/18/2024 11:27 PM EDT) CRP <0.30 0.00 - 0.90 mg/dL 07/18/2024 11:58 PM EDT [facility] Blood Venipuncture / Unknown 07/18/2024 11:27 PM EDT 07/18/2024 11:27 PM EDT Ariella NOLAND-C LAB BLOOD ORDERABLES Final Result Performing Organization Address [facility] [address]/[facility] Co de Phone Number [facility] [address] [phone] * (ABNORMAL) Comprehensive metabolic panel (07/18/2024 11:27 PM EDT) Sodium 140 136 - 146 meq/L 07/18/2024 11:58 PM EDT [facility] Potassium 4.1 3.5 - 5.1 meq/L 07/18/2024 11:58 PM EDT [facility] Chloride 109 102 - 112 meq/L 07/18/2024 11:58 PM EDT [facility] CO2 28 21 - 32 meq/L 07/18/2024 11:58 PM EDT [facility] Calcium 9.2 8.5 - 10.1 mg/dL 07/18/2024 11:58 PM EDT [facility] Glucose 115(H) 74 - 106 mg/dL 07/18/2024 11:58 PM EDT [facility] BUN 28(H) 7 - 22 mg/dL 07/18/2024 11:58 PM EDT [facility] Creatinine 0.93 0.70 - 1.30 mg/dL 07/18/2024 11:58 PM EDT [facility] BUN/Creatinine 30(H) 8 - 20 07/18/2024 11:58 PM EDT [facility] Albumin 4.0 3.4 - 5.0 g/dL 07/18/2024 11:58 PM EDT [facility] Alkaline Phosphatase 169(H) 27 - 136 U/L 07/18/2024 11:58 PM EDT [facility] ALT 47 12 - 78 U/L 07/18/2024 11:58 PM EDT [facility] AST 37 5 - 37 U/L 07/18/2024 11:58 PM EDT [facility] Total Bilirubin 0.3 0.2 - 1.3 mg/dL 07/18/2024 11:58 PM EDT [facility] Protein, Total 7.6 6.4 - 8.2 gm/dL 07/18/2024 11:58 PM EDT [facility] Anion Gap 7(L) 9 - 20 07/18/2024 11:58 PM EDT [facility] A/G Ratio 1.1 1.1 - 2.5 07/18/2024 11:58 PM EDT [facility] Globulin 3.6 1.5 - 4.5 g/dL 07/18/2024 11:58 PM EDT [facility] Osmolality Calc 285.8 mOsm/kg 11:58 PM EDT [facility] eGFR (mL/min/1.73m2) >60 >=60 mL/min/1.7 3m2 07/18/2024 11:58 PM EDT [facility] Comment:ESTIMATED GFR IS NOT ACCURATE CREATININE CLEARANCE IN PREDICTING GLOMERULAR FILTRATION RATE. ESTIMATED GFR IS NOT APPLICABLE FOR DIALYSIS PATIENTS. Blood Venipuncture / Unknown 07/18/2024 11:27 PM EDT 07/18/2024 11:27 PM EDT us Ariella Grant PA-C LAB BLOOD ORDERABLES Final Result [facility] [address] [place] [address] documented in this encounter Visit Diagnoses Diagnosis Right ureteral stone- Primary Renal colic on right side Renal colic documented in this encounter Administered Medications Inactive Administered Medications - up to 3 most recent administrations Medication Order MAR Action Action Date Dose Rate Site cefdinir (OMNICEF) capsule 300 mg 300 mg Once, oral, On Thu07/19/24 at 0205, For 1 dose, Please choose an indication: Urinary Tract Infection Given 07/19/2024 2:18 AM EDT 300 mg iopamidoL (ISOVUE-370) 370 mg iodine /mL (76 %) injection 75 mL 75 mL IMG once as needed, intravenous, contrast, Starting on Thu07/19/24 at 0007, For 1 dose, Intra-op Given 07/19/2024 12:24 AM EDT 75 mLs morphine injection 4 mg 4 mg Once, intravenous, On Thu07/18/24 at 2310, For 1 dose Given 07/18/2024 11:27 PM EDT 4 mg ondansetron (ZOFRAN) injection 4 mg 4 mg Once, intravenous, On Thu07/18/24 at 2310, For 1 dose, For IV push, give over 2 - 5 minutes. Given 07/18/2024 11:27 PM EDT 4 mg ondansetron (ZOFRAN-ODT) disintegrating tablet 4 mg 4 mg Once, oral, On Thu07/19/24 at 0205, For 1 dose Given 07/19/2024 2:18 AM EDT 4 mg oxyCODONE-acetaminophen (PERCOCET) 5-325 mg per tablet 1 tablet 1 tablet Once, oral, On Thu07/19/24 at 0205, For 1 dose, Recommended maximum dose of acetaminophen is 4000 mg from all sources in 24 hours Look-alike/Sound-alike medication Given 07/19/2024 2:18 AM EDT 1 tablet phenazopyridine (PYRIDIUM) tablet 190 mg 190 mg Once, oral, On Thu07/19/24 at 0205, For 1 dose Given 07/19/2024 2:18 AM EDT 190 mg sodium chloride 0.9% (NS) bolus 1,000 mL Once, intravenous, Administer over 60 Minutes, On Thu07/18/24 at 2310, For 1 dose New Bag 07/18/2024 11:27 PM EDT 1,000 mLs 1000 mL/hr documented in this encounter Active and Recently Administered Medications Times are shown in EDT. Scheduled Medication Order 07/17/2024 07/18/2024 07/19/2024 cefdinir (OMNICEF) capsule 300 mg (COMPLETED) 300 mg Once, oral, On Thu07/19/24 at 0205, For 1 dose, Please choose an indication: Urinary Tract Infection 8 (Given - Provid er: Vince Gresham) morphine injection 4 mg (COMPLETED) 4 mg Once, intravenous, On Thu07/18/24 at 2310, For 1 dose 2326 (Given - Provider: Vince Gresham) ondansetron (ZOFRAN) injection 4 mg (COMPLETED) 4 mg Once, intravenous, On Thu07/18/24 at 2310, For 1 dose, For IV push, give over 2 - 5 minutes. 2326 (Given - Provider: Vince Gresham) ondansetron (ZOFRAN-ODT) disintegrating tablet 4 mg (COMPLETED) 4 mg Once, oral, On Thu07/19/24 at 0205, For 1 dose 217 (Given - Provid er: Vince Gresham) oxyCODONE-acetaminophen (PERCOCET) 5-325 mg per tablet 1 tablet (COMPLETED) 1 tablet Once, oral, On Thu07/19/24 at 0205, For 1 dose, Recommended maximum dose of acetaminophen is 4000 mg from all sources in 24 hours Look-alike/Sound-alike medication 0218 (Given - Provid er: Vince Gresham) phenazopyridine (PYRIDIUM) tablet 190 mg (COMPLETED) 190 mg Once, oral, On Thu07/19/24 at 0205, For 1 dose 021 (Given - Provid er: Vince Gresham) sodium chloride 0.9% (NS) bolus (COMPLETED) 1,000 mL Once, intravenous, Administer over 60 Minutes, On Thu07/18/24 at 2310, For 1 dose 2326 (New Bag - Provider: Vince Gresham) 0034 (Stopped - Provider: Vince Gresham) PRN Medication Order 07/17/2024 07/18/2024 07/19/2024 iopamidoL (ISOVUE-370) 370 mg iodine /mL (76 %) injection 75 mL (COMPLETED) 75 mL IMG once as needed, intravenous, contrast, Starting on Thu07/19/24 at 0007, For 1 dose, Intra-op 0024 (Given - Provid er: Tylor Maldonado) documented in this encounter Care Teams Exploration Geologist Relationship Specialty Start Date End Date [facility], Provider Not In The System, [place] [address] PCP - General 07/18/24 Lolita Belcher [address] [place] [address], [address] [place] [id number] Advanced Registered Nurse Practitioner Primary Care 06/10/24 documented as of this encounter
--- OUTSIDE RECORDS SUMMARY | 2024-08-08 10:53 | XMS_ITS | Encounter Summary ---
Author Organization [employer] Address [address] [place] [address] Care Team Providers Care Social Work Program Coordinator Name Role Phone Emily Estrada Primary Care Provider Unavail able [facility], Provider Not In The System Primary Care Provider Unavailable Encounter Details Date Type Department Care Team (Late st Contact Info) Description 06/19/2021 Transcribed Document [facility] Family Medicine [facility] [place] [address] ProviderJodie MD [address] [place] [address] Social History Tobacco Use Types Packs/Day Years Used Date Smoking Tobacco: Never Assessed Sex and Gender Information Value Date Recorded Sex Assigned at Not on file Legal Sex Male 4:10 PM CDT Gender Identity Not on file Sexual Orientation Straight 05/21/2022 1: 57 PM CDT documented as of this encounter Miscellaneous Notes * Cerner Conversion Note - Historical ProviderMD - 06/19/2021 2:00 AM CDT Engineering Intern Details Entered On: 06/19/2021 6:31 EDT Performed On: 06/19/2021 2:00 EDT by Melinda Donaldson RN Order Details Transport Mode Order Detail : Wheelchair Isolation Precautions Order Detail : Standard Precautions Order Detail : N/A IV Order Detail : 1 Oxygen Order Detail : 0 Nurse Collect Order Detail : 0 Lift/Transfer : Independent Central Line Order Detail : No Room Service : Appropriate Arterial Line : No Patient Needs Meds Crushed/Liquid : No Melinda Donaldson RN - 06/19/2021 6:31 EDT documented in this encounter Plan of Treatment Not on file documented as of this encounter Visit Diagnoses Not on filedocumented in this encounter Care Teams Social Work Program Coordinator Relationship Specialty Start Date End Date MavisBarEmily ordonez [address] [address] [place] [address] PCP - General 05/14/22 06/09/24 [facility], Provider Not In The System, [place] [address] PCP - General 07/18/24 Lolita Belcher [address], [address] [place] [address] Advanced Registered Nurse Practitioner Primary Care 06/10/24 documented as of this encounter
--- OUTSIDE RECORDS SUMMARY | 2024-08-08 10:53 | XMS_ITS | Referral Summary ---
Author Organization [employer] Address [address] [place] [address] Care Team Providers Care Geological Manager Name Role Phone [facility], Provider Not In The System Primary Care Provider Unavailable Encounters Date Type Department Care Team Description 07/18/2024 10:41 PM EDT - 07/19/2024 2:16 AM EDT Emergency [facility] Emergency Department [address] [place] [address] Kareem Martel MD Right ureteral stone (Primary Dx); Renal colic on right side Discharge Disposition: Home or Self Care 07/18/2024 Travel 07/12/2024 1:38 PM EDT - 07/12/2024 11:59 PM EDT Hospital Encounter [facility] Diagnostic Imaging - [address] [place] [address] Shi Alvarenga PA Calculus of kidney Discharge Disposition: Home or Self Care 07/12/2024 Outside Orders [facility] - [place] [facility] [address] [place] [address] [address] [place] [address] Shi Alvarenga PA Calculus of kidney (Primary Dx) 06/08/2024 3:46 PM EDT - 06/10/2024 11:20 AM EDT Hospital Encounter [facility] Telemetry Unit [address] [place] [address] Shannan Andrea MD Discharge Disposition: Home or Self Care 06/09/2024 2:41 PM EDT Anesthesia Event [facility] Surgery Department [address] [place] [address] Abhay Barbour CRNA Qureshi, Muhammad, MD 06/09/2024 1:50 PM EDT - 06/09/2024 3:22 PM EDT Surgery [facility] Surgery Department [address] [place] [address] Kareem Young MD LITHOTRIPSY,EXTRACO RPOREAL SHOCK WAVE (ESWL) 06/08/2024 Travel from Last 3 Months Allergies Active Allergy Reactions Criticality Noted Date Comments Gabapentin Rash High 06/08/2024 Lisinopril Anaphylaxis High 05/16/2022 Medications allopurinoL (ZYLOPRIM) 300 MG tablet Take 1 tablet (300 mg total) by mouth daily. Active aspirin 81 MG EC tablet Take 1 tablet (81 mg total) by mouth daily. Active atorvastatin (LIPITOR) 10 MG tablet Take 1 tablet (10 mg total) by mouth nightly. Active levothyroxine (SYNTHROID, LEVOTHROID) 75 MCG tablet Take 1 tablet (75 mcg total) by mouth Every morning on an empty stomach. Active metoprolol succinate (TOPROL-XL) 50 MG 24 hr tablet Take 12.5 mg by mouth daily. Active sildenafiL (VIAGRA) 25 MG tablet Take 1 tablet (25 mg total) by mouth as needed for erectile dysfunction. Active prasugreL HCl (EFFIENT) 10 mg tab tablet Take 1 tablet (10 mg total) by mouth daily. Active pregabalin (LYRICA) 100 MG capsule Take 1 capsule (100 mg total) by mouth 3 (three) times daily. Max Daily Amount: 300 mg Active nitrofurantoin, macrocrystal-monoh ydrate, (MACROBID) 100 MG capsule Take 1 capsule (100 mg total) by mouth 2 (two) times daily with breakfast and dinner. 30 capsule 5 Active cefdinir (OMNICEF) 300 mg capsule Take 1 capsule (300 mg total) by mouth 2 (two) times daily for 5 days. 10 capsule 5 025 ondansetron (ZOFRAN-ODT) 4 MG disintegrating tablet Take 1 tablet (4 mg total) by mouth every 6 (six) hours as needed for nausea for up to 7 days. 20 tablet 5 025 tamsulosin (FLOMAX) 0.4 mg cap 24 hr capsule Take 1 capsule (0.4 mg total) by mouth daily for 14 days. 14 capsule 5 025 phenazopyridine (PYRIDIUM) 200 MG tablet Take 1 tablet (200 mg total) by mouth 3 (three) times daily with meals for 5 days. 15 tablet 5 025 oxyCODONE-acetamin ophen (PERCOCET) 5-325 mg per tablet 1-2 po q6h prn severe pain. 16 tablet 5 025 Active Problems Problem Noted Date Diagnosed Date CAD (coronary artery disease) 06/09/2024 HTN (hypertension) 06/09/2024 Kidney stone 06/08/2024 Acute back pain less than 4 weeks duration 06/06 Acute neck pain 05/15/2022 Resolved Problems Problem Noted Date Diagnosed Date Resolved Date Lumbar herniated disc 05/03/20222022 Social History Tobacco Use Types Packs/Day Years Used Date Smoking Tobacco: Never Passive Smoke Exposure: Never Smokeless Tobacco: Never Tobacco Cessation:Counseling Given: Not Answered Alcohol Use Standard Drinks/Week Comments Yes 2 (1 standard drink = 0.6 oz pur e alcohol) Utilities Answer Date Recorded In the past 12 months, has t he [email or web address], gas, oil, or water [employer] threatened to shut off services in your [...] Do you speak a language other than [place]alan at [facility]? No 06/08/2024 Do you want help [...] Orientation Straight 05/21/2022 1: 57 PM CDT Last Filed Vital Signs Vital Sign Reading [...] Mass Index 29.03 07/18/2024 10:45 PM EDT Plan of Treatment Not on file Medical Devices Implanted Type Area Hotel Associate Device Identifier Shelf Expiration Date Model / Serial / Lot Bone Vivigen Formable Cell 5cc Bl-1600-002 - [id number] Implanted:Qty : 1 on 05/03/2022 by Edson Barfield MD at [facility] IMPLANTS N/A: Back LIFENET:LIFENET TRANSPLANT SRV 04/14/2023 [id number] / Scr Spne Arash Fix 7x50mm [id number] - [id number] Implanted:Qty : 4 on 05/03/2022 by Edson Barfield MD at [facility] IMPLANTS N/A: Back J &J:DEPUY:DEPUY SPINE 7 50 / 7 50 / Mis Jazzy Ply Scrw Set Ti -000 - [id number] Implanted:Qty : 4 on 05/03/2022 by Edson Barfield MD at [facility] IMPLANTS N/A: Back J &J:DEPUY:DEPUY SPINE -0 00 / 0 00 / Teo Pre Load 40mm [id number] - [id number] Implanted:Qty : 2 on 05/03/2022 by Edson Barfield MD at [facility] IMPLANTS N/A: Back J &J:DEPUY:DEPUY SPINE -0 40 / -0 40 / Cage Eit Plif H 11mm 8d 11/11 [id number] - [id number] Implanted:Qty : 1 on 05/03/2022 by Edson Barfield MD at [facility] IMPLANTS N/A: Back J &J:DEPUY:DEPUY SPINE 03/18/2027 [id number] / / [id number] Sealant Durasl Spine 5ml - [id number] Implanted:Qty : 1 on 05/03/2022 by Edson Barfield MD at [facility] IMPLANTS N/A: Back [employer] 10/17/2023 [id number] / / [id number] Pwdr Cellerate Rx 5gm Surgical [id number] - [id number] Implanted:Qty : 1 on 05/03/2022 by Edson Barfield MD at [facility] IMPLANTS N/A: Back [employer] 12/17/2023 [facility]-05-SA CRXP / / [id number] Stent Uret Percflx + 4.8frx28 [id number] - [id number] Implanted:Qty : 1 on 06/09/2024 by Kareem Young MD at [facility] IMPLANTS Right: Ureter [employer]:UROLOGY/GYNE COLOGY 10/18/2026 [id number] / / [id number] Explanted Type Area Hotel Associate Device Identifier Shelf Expiration Date Model / Serial / Lot Cath Uret Prerna 5fr [id number] - [id number] Implanted:Kareem Blandon MD (Quantity not on file) Explanted:Qty: 1 on 06/09/2024 at [facility] Right: Ureter COOK:UROLOGY 11/17/2026 [id number] / / [id number] Procedures Procedure Name Priority Date/Time Associated Diagnosis Comments CT ABDOMEN/PELVIS WITH IV CONTRAST STAT 07/19/2024 12:28 AM EDT URINALYSIS MICROSCOPIC STAT 12:09 AM EDT URINALYSIS, REFLEX MICROSCOPIC AND CULTURE IF INDICATED STAT 07/19/2024 12:09 AM EDT LACTIC ACID WITH REFLEX STAT 07/18/2024 11:28 PM EDT CBC W/ AUTO DIFF STAT 07/18/2024 11:2 8 PM EDT BLOOD CULTURE STAT 07/18/2024 11:28 PM EDT BLOOD CULTURE STAT 07/18/2024 11:28 PM EDT C-REACTIVE PROTEIN STAT 07/18/2024 11 :27 PM EDT COMPREHENSIVE METABOLIC PANEL STAT 07/18/2024 11:27 PM EDT XR ABDOMEN/KUB 1 VW STAT 07/12/2024 1 :41 PM EDT Calculus of kidney ANESTHESIA INTUBATION Routine 06/09/2024 2:48 PM EDT RI CYSTO W/INSERT URETERAL STENT 06/09/2024 2:39 PM EDT Diagnosis unknown RI LITHOTRIPSY XTRCORP SHOCK WAVE 06/09/2024 2:39 PM EDT Diagnosis unknown XR ABDOMEN/KUB 1 VIEW PORTABLE Routine 06/09/2024 1:42 PM EDT BASIC METABOLIC PANEL Routine 06/09/2024 5:28 AM EDT PT/INR, PTT STAT 06/08/2024 5:26 PM EDT CBC HEMOGRAM (SJ-BKR) STAT 06/08/2024 5:26 PM EDT BASIC METABOLIC PANEL STAT 06/08/2024 5:26 PM EDT XR CHEST AP PORTABLE STAT 06/08/2024 4:55 PM EDT FS_MODEL_IP_ECG 12-LEAD STAT 06/08/2024 4:43 PM EDT EKG-SCANNED 06/08/2024 from Last 3 Months Results * CT ABDOMEN/PELVIS WITH IV CONTRAST [...] Darryl Clark MD us Ariella Grant PA-C IM CT ORDERABLES Final Re sult * (ABNORMAL) Urinalysis, Reflex Microscopic and Culture If Indicated (07/19/2024 12:09 AM EDT) Color, UA Light Yellow 07/19/2024 12:21 AM EDT [facility] Clarity, UA Turbid(A) Clear 07/19/2024 12:21 AM EDT [facility] Specific King, UA 1.022 1.005 - 1.030 07/19/2024 12:21 AM EDT [facility] pH, UA 5.5(L) 6.0 - 8.0 07/19/2024 12:21 AM EDT [facility] Leukocytes, UA Negative Negative 07/19/2024 12:21 AM EDT [facility] Nitrite, UA Negative Negative 07/19/2024 12:21 AM EDT [facility] Protein, UA Negative Negative 07/19/2024 12:21 AM EDT [facility] Glucose, UA Normal Normal 07/19/2024 12:21 AM EDT [facility] Ketones, UA Negative Negative 07/19/2024 12:21 AM EDT [facility] Bilirubin, UA Negative Negative 07/19/2024 12:21 AM EDT [facility] Blood, UA 3+(A) Negative 07/19/2024 12:21 AM EDT [facility] Urobilinogen, UA Normal Normal 07/19/2024 12:21 AM EDT [facility] Specimen Source Urine, Clean Catch 07/19/2024 12:21 AM EDT [facility] Urine URINE SPECIMEN COLLECTION, CLEAN CATCH / Unknown 07/19/2024 12:09 AM EDT 07/19/2024 12:10 AM EDT us Ariella Grant PA-C URINE ORDERABLES Final Res ult [facility] [address] [place] [address] * (ABNORMAL) Urinalysis Microscopic Only (07/19/2024 12:09 AM EDT) WBC, UA 6-10(A) None Seen /HPF 07/19/2024 12:21 AM EDT [facility] RBC, UA Too Numerous To Count(A) None Seen /HPF 07/19/2024 12:21 AM EDT [facility] Bacteria, UA 1+(A) Trace, None Seen 07/19/2024 12:21 AM EDT [facility] Mucus 1+(A) None Seen 07/19/2024 12:21 AM EDT [facility] SQUAMOUS EPITHELIAL None Seen None Seen /HPF 07/19/2024 12:21 AM EDT [facility] Urine URINE SPECIMEN COLLECTION, CLEAN CATCH / Unknown 07/19/2024 12:09 AM EDT 07/19/2024 12:10 AM EDT Ariella Grant PA-C URINE ORDERABLES Final Res ult [facility] [id number], [facility] [phone] * (ABNORMAL) CBC with Auto Diff (07/18/2024 11:28 PM EDT) WBC 8.6 3.9 - 10.0 K/ L 07/18/2024 11:32 PM EDT [facility] RBC 4.54(L) 4.63 - 6.08 M/ L 07/18/2024 11:32 PM EDT [facility] Hemoglobin 14.1 11.2 - 15.7 GM/DL 07/18/2024 11:32 PM EDT [facility] Hematocrit 42.0 40.1 - 51.0 % 07/18/2024 11:32 PM EDT [facility] MCV 93 79 - 95 fL 07/18/2024 11:32 PM EDT [facility] MCH 31.1 25.6 - 32.2 pg 07/18/2024 11:32 PM EDT [facility] MCHC 33.6 32.3 - 36.5 GM/DL 07/18/2024 11:32 PM EDT [facility] RDW 13.6 11.6 - 14.4 % 07/18/2024 11:32 PM EDT [facility] Platelets 236 163 - 369 K/CU MM 07/18/2024 11:32 PM EDT [facility] MPV 9.7 9.4 - 12.4 fL 07/18/2024 11:32 PM EDT [facility] % Neutros 62 34 - 68 % 07/18/2024 11:32 PM EDT [facility] % Lymphs 24 19 - 53 % 07/18/2024 11:32 PM EDT [facility] % Monos 9 4 - 13 % 07/18/2024 11:32 PM EDT [facility] % Eos 4 1 - 7 % 07/18/2024 11:32 PM EDT [facility] % Baso 1 0 - 1 % 07/18/2024 11:32 PM EDT [facility] # Neutros 5.33 1.56 - 6.13 K/ L 07/18/2024 11:32 PM EDT [facility] # Lymphs 2.05 1.18 - 3.74 K/ L 07/18/2024 11:32 PM EDT [facility] # Monos 0.74 0.24 - 0.82 K/ L 07/18/2024 11:32 PM EDT [facility] # Eos 0.36 0.04 - 0.54 K/ L 07/18/2024 11:32 PM EDT [facility] # Baso 0.08 0.01 - 0.08 K/ L 07/18/2024 11:32 PM EDT [facility] Immature Granulocytes-Re lative 0.20 0.00 - 0.60 % 07/18/2024 11:32 PM EDT [facility] # IG 0.02 0.00 - 0.05 K/uL 07/18/2024 11:32 PM EDT [facility] Blood 07/18/2024 11:2 8 PM EDT 07/18/2024 11:28 PM EDT Narrative [facility] - 07/18/2024 11:32 PM EDT [...] Grant PA-C LAB BLOOD ORDERABLES Final Result [facility] [address] [place] [address], [facility] [phone] * Lactic Acid with reflex (SJ) (07/18/2024 11:28 PM EDT) Lactic Acid Level (mmol/L) 1.0 0.4 - 2.0 mmol/L 07/18/2024 11:58 PM EDT [facility] Comment:If a Lactic Acid Lev el with Reflex if Indicated result is greater than 2.0, a Lactic Acid Level will be ordered to be collected 2 hours after the original collection time. Blood 07/18/2024 11:2 8 PM EDT 07/18/2024 11:28 PM EDT Ariella Grant PA-C LAB BLOOD ORDERABLES Final Result Performing Organization Address [facility]/ZIP Co de Phone Number [facility] [address] [phone] * Blood Culture (07/18/2024 11:28 PM EDT) Only the most recent of2 resultswithin the time period is included. Result No growth in 5 days 07/24/2024 10:01 AM EDT [facility] Blood 07/18/2024 11:2 8 PM EDT 07/18/2024 11:28 PM EDT Ariella NOLAND-C MICROBIOLOGY - GENERAL ORD ERABLES Final Result Performing Organization Address [facility] Co de Phone Number [facility] [address] [phone] * C-Reactive Protein (07/18/2024 11:27 PM EDT) CRP <0.30 0.00 - 0.90 mg/dL 07/18/2024 11:58 PM EDT [facility] Blood Venipuncture / Unknown 07/18/2024 11:27 PM EDT 07/18/2024 11:27 PM EDT Ariella Grant PA-C LAB BLOOD ORDERABLES Final Result Performing Organization Address City/[facility]/ZIP Co de Phone Number [facility] [address] [phone] * (ABNORMAL) Comprehensive metabolic panel (07/18/2024 11:27 PM EDT) Sodium 140 136 - 146 meq/L 07/18/2024 11:58 PM EDT [facility] Potassium 4.1 3.5 - 5.1 meq/L 07/18/2024 11:58 PM EDT [facility] Chloride 109 102 - 112 meq/L 07/18/2024 11:58 PM EDT [facility] CO2 28 21 - 32 meq/L 07/18/2024 11:58 PM EDT [facility] Calcium 9.2 8.5 - 10.1 mg/dL 07/18/2024 11:58 PM T [facility] Glucose 115(H) 74 - 106 mg/dL 07/18/2024 11:58 PM T [facility] BUN 28(H) 7 - 22 mg/dL 07/18/2024 11:58 PM T [facility] Creatinine 0.93 0.70 - 1.30 mg/dL 07/18/2024 11:58 PM T [facility] BUN/Creatinine 30(H) 8 - 20 07/18/2024 11:58 PM T [facility] Albumin 4.0 3.4 - 5.0 g/dL 07/18/2024 11:58 PM T [facility] Alkaline Phosphatase 169(H) 27 - 136 U/L 07/18/2024 11:58 PM T [facility] ALT 47 12 - 78 U/L 07/18/2024 11:58 PM T [facility] AST 37 5 - 37 U/L 07/18/2024 11:58 PM T [facility] Total Bilirubin 0.3 0.2 - 1.3 mg/dL 07/18/2024 11:58 PM T [facility] Protein, Total 7.6 6.4 - 8.2 gm/dL 07/18/2024 11:58 PM T [facility] Anion Gap 7(L) 9 - 20 07/18/2024 11:58 PM T [facility] A/G Ratio 1.1 1.1 - 2.5 07/18/2024 11:58 PM T [facility] Globulin 3.6 1.5 - 4.5 g/dL 07/18/2024 11:58 PM EDT [facility] Osmolality Calc 285.8 mOsm/kg 11:58 PM EDT [facility] eGFR (mL/min/1.73m2) >60 >=60 mL/min/1.7 3m2 07/18/2024 11:58 PM EDT [facility] Comment:ESTIMATED GFR IS NOT ACCURATE CREATININE CLEARANCE IN PREDICTING GLOMERULAR FILTRATION RATE. ESTIMATED GFR IS NOT APPLICABLE FOR DIALYSIS PATIENTS. Blood Venipuncture / Unknown 07/18/2024 11:27 PM EDT 07/18/2024 11:27 PM EDT us Ariella Grant PA-C LAB BLOOD ORDERABLES Final Result [facility] [address] [phone] * X-ray abdomen KUB 1 view (07/12/2024 [...] Transcribed by Helena Sanz PA-C. Shi NOLAND IMG DIAGNOSTIC IMAGING ORDERABLES Final Result * AN SINGLE LUMEN INTUBATION (06/09/2024 2:48 [...] of attempts at approach: 1 Abhay Barbour BIG DATA SOFTWARE ENGINEER ANESTHESIA ORDERABLES Fin al Result * XR KUB PORTABLE (06/09/2024 1:42 PM [...] Basic Metabolic Panel (06/09/2024 5:28 AM EDT) Only the most recent of2 resultswithin the time period is included. Sodium 141 136 - 146 meq/L 06/09/2024 5:39 AM EDT [facility] Potassium 4.1 3.5 - 5.1 meq/L 06/09/2024 5:39 AM EDT [facility] Chloride 111 102 - 112 meq/L 06/09/2024 5:39 AM EDT [facility] CO2 26 21 - 32 meq/L 06/09/2024 5:39 AM T [facility] Anion Gap 8(L) 9 - 20 06/09/2024 5:39 AM T [facility] BUN 18 7 - 22 mg/dL 06/09/2024 5:39 AM T [facility] Creatinine 0.97 0.70 - 1.30 mg/dL 06/09/2024 5:39 AM T [facility] BUN/Creatinine 19 8 - 20 06/09/2024 5:39 AM T [facility] Glucose 107(H) 74 - 106 mg/dL 06/09/2024 5:39 AM T [facility] Calcium 8.3(L) 8.5 - 10.1 mg/dL 06/09/2024 5:39 AM [facility] Osmolality Calc 283.6 mOsm/kg 5:39 AM [facility] eGFR (mL/min/1.73m2) >60 >=60 mL/min/1.7 [...] Resu lt [facility] [address] [phone] * (ABNORMAL) CBC - Hemogram (SJ-BKR) (06/08/2024 [...] MD LAB BLOOD ORDERABLES Final Resu lt Performing Organization Address [facility] Phone Number [facility] [address] [place] [address], [facility] [phone] * PT/INR, PTT (06/08/2024 5:26 PM EDT) [...] MD LAB BLOOD ORDERABLES Final Resu lt Performing Organization Address [facility] Phone Number [facility] [address] [phone] * XR chest AP portable (06/08/2024 4:55 PM EDT) Anatomical Region Laterality Modality Chest X-Ray 06/09/2024 1:51 AM EDT Impressions 06/09/2024 1:52 AM EDT No acute cardiopulmonary process. Images reviewed, interpreted, dictated and electronically signed by Devon Walker MD Voice nanosystems engineer technology (Power Scribe) is used for the dictation of this note and sound-alike words might be erroneously placed despite reviewing this note for accuracy. Errors in dictation may reflect use of voice recognition software and not all errors in nanosystems engineer may have been detected prior to signing. [...] electronically signed by Devon Walker MD Voice nanosystems engineer technology (Power Scribe) is used for the dictation of this note and sound-alike words might be erroneously placed despite reviewing this note for accuracy. Errors in dictation may reflect use of voice recognition software and not all errors in nanosystems engineer may have been detected prior to signing. [...] (MCT) 0 degrees GE MUSE T Wave [place] 0 degrees GE MUSE [place] Diagnosis No QRS complexes found, no ECG analysis possible Confirmed by Saroj KHAN SUZANNE ([id number]) on 06/13/2024 12:33:18 PM GE MUSE 06/08/2024 4:43 PM EDT 06/13/2024 12:33 PM EDT us Shannan Andrea MD ECG ORDERABLES Final Result GE MUSE * EKG-SCANNED (06/08/2024) Narrative 06/08/2024 Ordered by an unspecified provider. us Default Scanning Provider SCAN ORDERS Final Result from Last 3 Months Insurance [place]IC[place] [address] [place] [address] [facility] Advance Directives For more information, please contact: [phone] * Full Code (Latest Code Status on File) Date Activated Date Inactivated Comments 06/09/2024 12:14 PM 06/10/2024 12:25 PM * Full Code Date Activated Date Inactivated Comments 06/08/2024 3:10 PM 06/09/2024 12:14 PM * Full Code Date Activated Date Inactivated Comments 06/07/2023 1:33 PM 06/09/2023 5:58 PM * Full Code Date Activated Date Inactivated Comments 05/15/2022 7:17 AM 05/17/2022 12:35 PM * Full Code Date Activated Date Inactivated Comments 05/03/2022 5:45 PM 05/04/2022 4:41 PM Care Teams Geological Manager Relationship Specialty Start Date End Date [facility], Provider Not In The System, [place] [address] PCP - General 07/18/24 Lolita Belcher [address] [place] [address], [address] [address] Advanced Registered Nurse Practitioner Primary Care 06/10/24
--- OUTSIDE RECORDS SUMMARY | 2024-08-08 10:53 | XMS_ITS | Encounter Summary ---
Author Organization [employer] Address [address] [place] [address] Care Team Providers Care Manager Post Name Role Phone Emily Estrada Primary Care Provider Unavail able [facility], Provider Not In The System Primary Care Provider Unavailable Encounter Details Date Type Department Care Team (Late st Contact Info) Description 06/19/2021 Transcribed Document [facility] [place] [address] ProviderJodie MD [address] [place] [address] Social History Tobacco Use Types Packs/Day Years Used Date Smoking Tobacco: Never Assessed Sex and Gender Information Value Date Recorded Sex Assigned at Not on file Legal Sex Male 4:10 PM CDT Gender Identity Not on file Sexual Orientation Straight 05/21/2022 1: 57 PM CDT documented as of this encounter Miscellaneous Notes * Cerner Conversion Note - Historical ProviderMD - 06/19/2021 12:41 PM CDT UM Authorization Entered On: 06/19/2021 12:41 EDT Performed On: 06/19/2021 12:41 EDT by JULIAN ADAMSON RN Primary Insurance Authorization Authorization and Policy Numbers : Insurance 1 Health Plan: MEDICARE Policy Number: [id number] Authorization Number: Insurance 2 Health Plan: [employer] N Policy Number: [id number] Authorization Number: Insurance Primary Name : MEDICARE Policy Number: [id number] Authorized Service Begin Date-Primary : 06/18/2021 EDT Historical Authorization Comments-Primary : No Authorization Comments Found JULIAN ADMASON, RN - 06/19/2021 12:41 EDT documented in this encounter Plan of Treatment Not on file documented as of this encounter Visit Diagnoses Not on filedocumented in this encounter Care Teams Manager Post Relationship Specialty Start Date End Date Emily Estrada [address] [place] [id number] PCP - General 05/14/22 06/09/24 [facility], Provider Not In The System, [place] [address] PCP - General 07/18/24 Lolita Belcher [address], [address] [address] Advanced Registered Nurse Practitioner Primary Care 06/10/24 documented as of this encounter
--- OUTSIDE RECORDS SUMMARY | 2024-08-08 10:53 | XMS_ITS | Encounter Summary ---
Author Organization [employer] [facility] [employer] Address [address] [place] [address] Care Team Providers Care Quick Sketch Artist Name Role Phone Emily Estrada Primary Care Provider Unavail able [facility], Provider Not In The System Primary Care Provider Unavailable Encounter Details Date Type Department Care Team (Late st Contact Info) Description 12/28/[address] [facility] Family Medicine [address] [place] [address] ProviderJodie MD [address] [place] [address] Social History Tobacco Use Types Packs/Day Years Used Date Smoking Tobacco: Never Assessed Sex and Gender Information Value Date Recorded Sex Assigned at Not on file Legal Sex Male 4:10 PM CDT Gender Identity Not on file Sexual Orientation Straight 05/21/2022 1: 57 PM CDT documented as of this encounter Miscellaneous Notes * Cerner Conversion Note - Historical ProviderMD - 12/28/2018 11:22 AM MEDICAL LEADER Initial Discharge Planning Entered On: 12/28/2018 11:25 EST Performed On: 12/28/2018 11:22 EST by FORD BERMAN Rn-Press Washer Initial Assessment I Previously Documented Living Environment : No qualifying data available. Living Situation : Home Patient Lives With : Spouse Emergency Contact #1 : Kelsie Germain Emergency Contact #1 Emergency Contact #1 Relationship : Emergency Contact #2 : na Emergency Contact #2 Phone Number : na Emergency Contact #2 Relationship : na FORD BERMAN Rn-Press Washer - 12/28/2018 11:22 EST Initial Assessment II Sensory and Motor Deficits : None Current Home Treatments and Equipment : None FORD BERMAN Rn-Press Washer - 12/28/2018 11:22 EST Discharge Needs I Anticipated Discharge Date : 12/28/2018 EST Current Home Treatment/Equipment : Current Home Treatment/Equipment No qualifying data available. Post Acute/Home Treatments : None Documentation Status Complete : Yes FORD BERMAN Rn-Press Washer - 12/28/2018 11:22 EST Discharge Needs II Professional Skilled Services : Professional Skilled Services No qualifying data available. Needs Assistance with Transportation : No Discharge Options Discussed with Patient : Outpatient services FORD BERMAN Rn-Press Washer - 12/28/2018 11:22 EST Narrative Note Narrative Note : RRS: Low 34 RN CM met with pt at the bedside prior to dc. Pt lives at home with his . He is independent in adls. Denies use of DME or HH or rehab in the past. He is happy to have passed the stone and looking to going home. No dc needs are anticipated. His is on the way to pick him up. FORD BERMAN Rn-Press Washer - 12/28/2018 11:22 EST documented in this encounter Plan of Treatment Not on file documented as of this encounter Visit Diagnoses Not on filedocumented in this encounter Care Teams Quick Sketch Artist Relationship Specialty Start Date End Date Emily Estrada [address] [place] [phone] PCP - General 05/14/22 06/09/24 [facility], Provider Not In The System, [place] [address] PCP - General 07/18/24 Lolita Belcher [address] [place] [address], [address] [address] Advanced Registered Nurse Practitioner Primary Care 06/10/24 documented as of this encounter
--- OUTSIDE RECORDS SUMMARY | 2024-08-08 10:53 | XMS_ITS | Encounter Summary ---
Author Organization [employer] Address [address] [place] [address] Care Team Providers Care Lease Examiner Name Role Phone Emily Estrada Primary Care Provider Unavail able [facility], Provider Not In The System Primary Care Provider Unavailable Encounter Details Date Type Department Care Team (Late st Contact Info) Description 12/28/2018 Transcribed Document [facility] Family Medicine [address] [place] [address] ProviderJodie MD [address] [place] [address] Social History Tobacco Use Types Packs/Day Years Used Date Smoking Tobacco: Never Assessed Sex and Gender Information Value Date Recorded Sex Assigned at Not on file Legal Sex Male 4:10 PM CDT Gender Identity Not on file Sexual Orientation Straight 05/21/2022 1: 57 PM CDT documented as of this encounter Miscellaneous Notes * Cerner Conversion Note - Historical ProviderMD - 12/28/2018 11:44 AM EMERGENCY DEPARTMENT PHYSICIAN Nursing Discharge Summary Entered On: 12/28/2018 11:45 EST Performed On: 12/28/2018 11:44 EST by Maricarmen Montenegro integration assistant Documentation Discharge Date/Time : 12/28/2018 11:44 EST Patient Disposition, General : Discharge Discharge To : Home with ambulatory/outpatient follow-up Mode Of Departure, General Discharge : Private vehicle Accompanied By, Discharge : Friend IV Discontinued : Yes Medications Given to Patient : No Personal Belongings With Patient : Yes Pt's Own Supply of Medications Returned : No Prescriptions Given to Patient : No Alina Montenegroca, RN - 12/28/2018 11:44 EST Electronically signed by Interface, [facility] Conversion Splitter Head Cerner at 06/03/2022 10:40 PM CDT documented in this encounter Plan of Treatment Not on file documented as of this encounter Visit Diagnoses Not on filedocumented in this encounter Care Teams Lease Examiner Relationship Specialty Start Date End Date MavisBarEmily ordonez [address] [place] [phone] PCP - General 05/14/22 06/09/24 [facility], Provider Not In The System, [place] [address] PCP - General 07/18/24 Lolita Belcher [address], [address] [place] [id number] Advanced Registered Nurse Practitioner Primary Care 06/10/24 documented as of this encounter
--- OUTSIDE RECORDS SUMMARY | 2024-08-08 10:53 | XMS_ITS | Encounter Summary ---
Author Organization [employer] Address [address] [place] [address] Care Team Providers Care Rn Care Transition Name Role Phone Emiyl Estrada Primary Care Provider Unavail able [facility], Provider Not In The System Primary Care Provider Unavailable Encounter Details Date Type Department Care Team (Late st Contact Info) Description 12/28/2018 Transcribed Document [facility] Family Medicine [address] [place] [address] ProviderJodie MD [address] [place] [address] Social History Tobacco Use Types Packs/Day Years Used Date Smoking Tobacco: Never Assessed Sex and Gender Information Value Date Recorded Sex Assigned at Not on file Legal Sex Male 4:10 PM CDT Gender Identity Not on file Sexual Orientation Straight 05/21/2022 1: 57 PM CDT documented as of this encounter Miscellaneous Notes * Cerner Conversion Note - Historical ProviderMD - 12/28/2018 7:58 AM SPINNER OPERATOR Consult Phone Call Documentation Entered On: 12/28/2018 10:21 EST Performed On: 12/28/2018 7:58 EST by FELIPE CAMPO Phone Call for Consults Consult Phone Call/Page Attempt : First call Consult Reason : Kidney stones Physician Requesting Consult : BRYCE KELLY MD Physician Requested for Consult : ANABELLA CRAMER MD-URO Physician Covering for Consult : ARIEL ROSEN MD Date and Time Call Returned : 12/28/2018 10:21 EST FELIPE CAMPO - 12/28/2018 10:19 EST documented in this encounter Plan of Treatment Not on file documented as of this encounter Visit Diagnoses Not on filedocumented in this encounter Care Teams Rn Care Transition Relationship Specialty Start Date End Date Emily Estrada [address] [place] [address] [place] [phone] PCP - General 05/14/22 06/09/24 [facility], Provider Not In The System, [place] [address] PCP - General 07/18/24 Lolita Belcher [address], [address] [place] [phone] Advanced Registered Nurse Practitioner Primary Care 06/10/24 documented as of this encounter
--- OUTSIDE RECORDS SUMMARY | 2024-08-08 10:53 | XMS_ITS | Encounter Summary ---
Author Organization [employer] Address [address] [place] [address] Care Team Providers Care Die Repairer Trimmer Dies Name Role Phone [facility], Provider Not In The System MD Primary Care Provider Unavailable Encounter Details Date Type Department Care Team (Latest Contact Info) Description 07/18/2024 Travel Social History Tobacco Use Types Packs/Day Years [...] Date Record ed How often does anyone, ellaashley smith family and friends, physically hurt you? [...] your living situation today? I have a [facility] place to live 06/08/2024 Think about [...] Do you speak a language other than [place] [facility]? No 06/08/2024 Do you want help [...] PM CDT documented as of this encounter Plan of Treatment Not on file documented as of this encounter Visit Diagnoses Not on filedocumented in this encounter Care Teams Die Repairer Trimmer Dies Relationship Specialty Start Date End Date [facility], Provider Not In The System, [place] [address] PCP - General 07/18/24 Lolita Belcher [address] [place] [address], [address] [place] [address] Advanced Registered Nurse Practitioner Primary Care 06/10/24 documented as of this encounter
--- OUTSIDE RECORDS SUMMARY | 2024-08-08 10:53 | XMS_ITS | Encounter Summary ---
Author Organization [facility] Address [address] [place] [address] Care Team Providers Care Kiln Tender Name Role Phone Emily Estrada Primary Care Provider Unavail able [facility], Provider Not In The System Primary Care Provider Unavailable Encounter Details Date Type Department Care Team (Late st Contact Info) Description 06/19/2021 Transcribed Document [facility] [place] [facility] [place] [address] ProviderJodie MD [address] [place] [address] Social History Tobacco Use Types Packs/Day Years Used Date Smoking Tobacco: Never Assessed Sex and Gender Information Value Date Recorded Sex Assigned at Not on file Legal Sex Male 4:10 PM CDT Gender Identity Not on file Sexual Orientation Straight 05/21/2022 1: 57 PM CDT documented as of this encounter Miscellaneous Notes * Cerner Conversion Note - Historical ProviderMD - 06/19/2021 10:01 AM CDT Meds to Bed Enrollment Entered On: 06/19/2021 10:02 EDT Performed On: 06/19/2021 10:01 EDT by Amos Chester Material Planning Analyst Cert Lead Meds to Bed Enrollment Patient Enrollment Decision: : Yes/enroll in meds to bed program Amos Chester Material Planning Analyst Cert Lead - 06/19/2021 10:01 EDT documented in this encounter Plan of Treatment Not on file documented as of this encounter Visit Diagnoses Not on filedocumented in this encounter Care Teams Kiln Tender Relationship Specialty Start Date End Date Emily Estrada [address] [phone] PCP - General 05/14/22 06/09/24 [facility], Provider Not In The System, [place] [address] PCP - General 07/18/24 Lolita Belcher [address], [address] [address] Advanced Registered Nurse Practitioner Primary Care 06/10/24 documented as of this encounter
--- OUTSIDE RECORDS SUMMARY | 2024-08-08 10:53 | XMS_ITS | Encounter Summary ---
Author Organization [employer] Address [address] [place] [address] Care Team Providers Care Project Management Consultant Name Role Phone Emily Estrada Primary Care Provider Unavail able [facility], Provider Not In The System Primary Care Provider Unavailable Encounter Details Date Type Department Care Team (Late st Contact Info) Description 12/28/2018 Transcribed Document [facility] [place] [facility] [address] [place] [address] ProvideroJdie MD [address] [place] [address] Social History Tobacco Use Types Packs/Day Years Used Date Smoking Tobacco: Never Assessed Sex and Gender Information Value Date Recorded Sex Assigned at Not on file Legal Sex Male 4:10 PM CDT Gender Identity Not on file Sexual Orientation Straight 05/21/2022 1: 57 PM CDT documented as of this encounter Miscellaneous Notes * Cerner Conversion Note - Historical ProviderMD - 12/28/2018 11:46 AM MAT WEAVER Patient Education Materials Follows: Dietary Guidelines to Help Prevent Kidney Stones Kidney stones are deposits of minerals and salts that form inside your kidneys. Your risk of developing kidney stones may be greater depending on your diet, your lifestyle, the medicines you take, and whether you have certain medical conditions. Most people can reduce their chances of developing kidney stones by following the instructions below. Depending on your overall health and the type of kidney stones you tend to develop, your dietitian may give you more specific instructions. What are tips for following this plan? Reading food labels ??? Choose foods with no salt added or low-salt labels. Limit your sodium intake to less than 1500 mg per day. ??? Choose foods with calcium for each meal and snack. Try to eat about 300 mg of calcium at each meal. Foods that contain 200?500 mg of calcium per serving include: ? 8 oz (237 ml) of milk, fortified nondairy milk, and fortified fruit juice. ? 8 oz (237 ml) of kefir, yogurt, and soy yogurt. ? 4 oz (118 ml) of tofu. ? 1 oz of cheese. ? 1 cup (300 g) of dried figs. ? 1 cup (91 g) of cooked broccoli. ? 1?3 oz can of sardines or mackerel. ??? Most people need 1000 to 1500 mg of calcium each day. Talk to your dietitian about how much calcium is recommended for you. Shopping ??? Buy plenty of fresh fruits and vegetables. Most people do not need to avoid fruits and vegetables, even if they contain nutrients that may contribute to kidney stones. ??? When shopping for convenience foods, choose: ? Whole pieces of fruit. ? Premade salads with dressing on the side. ? Low-fat fruit and yogurt smoothies. ??? Avoid buying frozen meals or prepared deli foods. ??? Look for foods with live cultures, such as yogurt and kefir. Cooking ??? Do not add salt to food when cooking. Place a salt shaker on the table and allow each person to add his or her own salt to taste. ??? Use vegetable protein, such as beans, textured vegetable protein (TVP), or tofu instead of meat in pasta, casseroles, and soups. Meal planning ??? Eat less salt, if told by your dietitian. To do this: ? Avoid eating processed or premade food. ? Avoid eating fast food. ??? Eat less animal protein, including cheese, meat, poultry, or fish, if told by your dietitian. To do this: ? Limit the number of times you have meat, poultry, fish, or cheese each week. Eat a diet free of meat at least 2 days a week. ? Eat only one serving each day of meat, poultry, fish, or seafood. ? When you prepare animal protein, cut pieces into small portion sizes. For most meat and fish, one serving is about the size of one deck of cards. ??? Eat at least 5 servings of fresh fruits and vegetables each day. To do this: ? Keep fruits and vegetables on hand for snacks. ? Eat 1 piece of fruit or a handful of berries with breakfast. ? Have a salad and fruit at lunch. ? Have two kinds of vegetables at dinner. ??? Limit foods that are high in a substance called oxalate. These include: ? Spinach. ? Rhubarb. ? Beets. ? Potato chips and turkish fries. ? Nuts. ??? If you regularly take a diuretic medicine, make sure to eat at least 1?2 fruits or vegetables high in potassium each day. These include: ? Avocado. ? Banana. ? [place], prune, carrot, or tomato juice. ? Baked potato. ? Cabbage. ? Beans and split peas. General instructions ??? Drink enough fluid to keep your urine clear or pale yellow. This is the most important thing you can do. ??? Talk to your health care provider and dietitian about taking daily supplements. Depending on your health and the cause of your kidney stones, you may be advised: ? Not to take supplements with vitamin C. ? To take a calcium supplement. ? To take a daily probiotic supplement. ? To take other supplements such as magnesium, fish oil, or vitamin B6. ??? Take all medicines and supplements as told by your health care provider. ??? Limit alcohol intake to no more than 1 drink a day for non women and 2 drinks a day for men. One drink equals 12 oz of beer, 5 oz of wine, or 1? oz of hard liquor. ??? Lose weight if told by your health care provider. Work with your dietitian to find strategies and an eating plan that works best for you. What foods are not recommended? Limit your intake of the following foods, or as told by your dietitian. Talk to your dietitian about specific foods you should avoid based on the type of kidney stones and your overall health. Grains Breads. Bagels. Rolls. Baked goods. Salted crackers. Cereal. Pasta. Vegetables Spinach. Rhubarb. Beets. Canned vegetables. Pickles. Olives. Meats and other protein foods Nuts. Nut butters. Large portions of meat, poultry, or fish. Salted or cured meats. Deli meats. Hot dogs. Sausages. Dairy Cheese. Beverages Regular soft drinks. Regular vegetable juice. Seasonings and other foods Seasoning blends with salt. Salad dressings. Canned soups. Soy sauce. Ketchup. Barbecue sauce. Canned pasta sauce. Casseroles. Pizza. Lasagna. Frozen meals. Potato chips. Yakut fries. Summary ??? You can reduce your risk of kidney stones by making changes to your diet. ??? The most important thing you can do is drink enough fluid. You should drink enough fluid to keep your urine clear or pale yellow. ??? Ask your health care provider or dietitian how much protein from animal sources you should eat each day, and also how much salt and calcium you should have each day. This information is not intended to replace advice given to you by your health care provider. Make sure you discuss any questions you have with your health care provider. Document Released: 05/30/2011 Document Revised: 01/13/2017 Document Reviewed: 01/13/2017 [employer] Interactive Patient Education ? 2019 [employer]. Urology Dietary Guidelines to Help Prevent Kidney Stones Kidney stones are deposits of minerals and salts that form inside your kidneys. Your risk of developing kidney stones may be greater depending on your diet, your lifestyle, the medicines you take, and whether you have certain medical conditions. Most people can reduce their chances of developing kidney stones by following the instructions below. Depending on your overall health and the type of kidney stones you tend to develop, your dietitian may give you more specific instructions. What are tips for following this plan? Reading food labels ??? Choose foods with no salt added or low-salt labels. Limit your sodium intake to less than 1500 mg per day. ??? Choose foods with calcium for each meal and snack. Try to eat about 300 mg of calcium at each meal. Foods that contain 200?500 mg of calcium per serving include: ? 8 oz (237 ml) of milk, fortified nondairy milk, and fortified fruit juice. ? 8 oz (237 ml) of kefir, yogurt, and soy yogurt. ? 4 oz (118 ml) of tofu. ? 1 oz of cheese. ? 1 cup (300 g) of dried figs. ? 1 cup (91 g) of cooked broccoli. ? 1?3 oz can of sardines or mackerel. ??? Most people need 1000 to 1500 mg of calcium each day. Talk to your dietitian about how much calcium is recommended for you. Shopping ??? Buy plenty of fresh fruits and vegetables. Most people do not need to avoid fruits and vegetables, even if they contain nutrients that may contribute to kidney stones. ??? When shopping for convenience foods, choose: ? Whole pieces of fruit. ? Premade salads with dressing on the side. ? Low-fat fruit and yogurt smoothies. ??? Avoid buying frozen meals or prepared deli foods. ??? Look for foods with live cultures, such as yogurt and kefir. Cooking ??? Do not add salt to food when cooking. Place a salt shaker on the table and allow each person to add his or her own salt to taste. ??? Use vegetable protein, such as beans, textured vegetable protein (TVP), or tofu instead of meat in pasta, casseroles, and soups. Meal planning ??? Eat less salt, if told by your dietitian. To do this: ? Avoid eating processed or premade food. ? Avoid eating fast food. ??? Eat less animal protein, including cheese, meat, poultry, or fish, if told by your dietitian. To do this: ? Limit the number of times you have meat, poultry, fish, or cheese each week. Eat a diet free of meat at least 2 days a week. ? Eat only one serving each day of meat, poultry, fish, or seafood. ? When you prepare animal protein, cut pieces into small portion sizes. For most meat and fish, one serving is about the size of one deck of cards. ??? Eat at least 5 servings of fresh fruits and vegetables each day. To do this: ? Keep fruits and vegetables on hand for snacks. ? Eat 1 piece of fruit or a handful of berries with breakfast. ? Have a salad and fruit at lunch. ? Have two kinds of vegetables at dinner. ??? Limit foods that are high in a substance called oxalate. These include: ? Spinach. ? Rhubarb. ? Beets. ? Potato chips and turkish fries. ? Nuts. ??? If you regularly take a diuretic medicine, make sure to eat at least 1?2 fruits or vegetables high in potassium each day. These include: ? Avocado. ? Banana. ? [place], prune, carrot, or tomato juice. ? Baked potato. ? Cabbage. ? Beans and split peas. General instructions ??? Drink enough fluid to keep your urine clear or pale yellow. This is the most important thing you can do. ??? Talk to your health care provider and dietitian about taking daily supplements. Depending on your health and the cause of your kidney stones, you may be advised: ? Not to take supplements with vitamin C. ? To take a calcium supplement. ? To take a daily probiotic supplement. ? To take other supplements such as magnesium, fish oil, or vitamin B6. ??? Take all medicines and supplements as told by your health care provider. ??? Limit alcohol intake to no more than 1 drink a day for non women and 2 drinks a day for men. One drink equals 12 oz of beer, 5 oz of wine, or 1? oz of hard liquor. ??? Lose weight if told by your health care provider. Work with your dietitian to find strategies and an eating plan that works best for you. What foods are not recommended? Limit your intake of the following foods, or as told by your dietitian. Talk to your dietitian about specific foods you should avoid based on the type of kidney stones and your overall health. Grains Breads. Bagels. Rolls. Baked goods. Salted crackers. Cereal. Pasta. Vegetables Spinach. Rhubarb. Beets. Canned vegetables. Pickles. Olives. Meats and other protein foods Nuts. Nut butters. Large portions of meat, poultry, or fish. Salted or cured meats. Deli meats. Hot dogs. Sausages. Dairy Cheese. Beverages Regular soft drinks. Regular vegetable juice. Seasonings and other foods Seasoning blends with salt. Salad dressings. Canned soups. Soy sauce. Ketchup. Barbecue sauce. Canned pasta sauce. Casseroles. Pizza. Lasagna. Frozen meals. Potato chips. Yakut fries. Summary ??? You can reduce your risk of kidney stones by making changes to your diet. ??? The most important thing you can do is drink enough fluid. You should drink enough fluid to keep your urine clear or pale yellow. ??? Ask your health care provider or dietitian how much protein from animal sources you should eat each day, and also how much salt and calcium you should have each day. This information is not intended to replace advice given to you by your health care provider. Make sure you discuss any questions you have with your health care provider. Document Released: 05/30/2011 Document Revised: 01/13/2017 Document Reviewed: 01/13/2017 [employer] Interactive Patient Education ? 2019 [employer] Kidney Stones Kidney stones (urolithiasis) are solid, rock-like deposits that form inside of the organs that make urine (kidneys). A kidney stone may form in a kidney and move into the bladder, where it can cause intense pain and block the flow of urine. Kidney stones are created when high levels of certain minerals are found in the urine. They are usually passed through urination, but in some cases, medical treatment may be needed to remove them. What are the causes? Kidney stones may be caused by: ??? A condition in which certain glands produce too much parathyroid hormone (primary hyperparathyroidism), which causes too much calcium buildup in the blood. ??? Buildup of uric acid crystals in the bladder (hyperuricosuria). Uric acid is a chemical that the body produces when you eat certain foods. It usually exits the body in the urine. ??? Narrowing (stricture) of one or both of the tubes that drain urine from the kidneys to the bladder (ureters). ??? A kidney blockage that is present at (congenital obstruction). ??? Past surgery on the kidney or the ureters, such as gastric bypass surgery. What increases the risk? The following factors make you more likely to develop kidney stones: ??? Having had a kidney stone in the past. ??? Having a family history of kidney stones. ??? Not drinking enough water. ??? Eating a diet that is high in protein, salt (sodium), or sugar. ??? Being overweight or obese. What are the signs or symptoms? Symptoms of a kidney stone may include: ??? Nausea. ??? Vomiting. ??? Blood in the urine (hematuria). ??? Pain in the side of the abdomen, right below the ribs (flank pain). Pain usually spreads (radiates) to the groin. ??? Needing to urinate frequently or urgently. How is this diagnosed? This condition may be diagnosed based on: ??? Your medical history. ??? A physical exam. ??? Blood tests. ??? Urine tests. ??? CT scan. ??? Abdominal X-ray. ??? A procedure to examine the inside of the bladder (cystoscopy). How is this treated? Treatment for kidney stones depends on the size, location, and makeup of the stones. Treatment may involve: ??? Analyzing your urine before and after you pass the stone through urination. ??? Being monitored at the hospital until you pass the stone through urination. ??? Increasing your fluid intake and decreasing the amount of calcium and protein in your diet. ??? A procedure to break up kidney stones in the bladder using: ? A focused beam of light (laser therapy). ? Shock waves (extracorporeal shock wave lithotripsy). ??? Surgery to remove kidney stones. This may be needed if you have severe pain or have stones that block your urinary tract. Follow these instructions at home: Eating and drinking ??? Drink enough fluid to keep your urine clear or pale yellow. This will help you to pass the kidney stone. ??? If directed, change your diet. This may include: ? Limiting how much sodium you eat. ? Eating more fruits and vegetables. ? Limiting how much meat, poultry, fish, and eggs you eat. ??? Follow instructions from your health care provider about eating or drinking restrictions. General instructions ??? Collect urine samples as told by your health care provider. You may need to collect a urine sample: ? 24 hours after you pass the stone. ? 8??12 weeks after passing the kidney stone, and every 6?12 months after that. ??? Strain your urine every time you urinate, for as long as directed. Use the strainer that your health care provider recommends. ??? Do not throw out the kidney stone after passing it. Keep the stone so it can be tested by your health care provider. Testing the makeup of your kidney stone may help prevent you from getting kidney stones in the future. ??? Take [id number]-qlo-zsslmtx and prescription medicines only as told by your health care provider. ??? Keep all follow-up visits as told by your health care provider. This is important. You may need follow-up X-rays or ultrasounds to make sure that your stone has passed. How is this prevented? To prevent another kidney stone: ??? Drink enough fluid to keep your urine clear or pale yellow. This is the best way to prevent kidney stones. ??? Eat a healthy diet and follow recommendations from your health care provider about foods to avoid. You may be instructed to eat a low-protein diet. Recommendations vary depending on the type of kidney stone that you have. ??? Maintain a healthy weight. Contact a health care provider if: ??? You have pain that gets worse or does not get better with medicine. Get help right away if: ??? You have a fever or chills. ??? You develop severe pain. ??? You develop new abdominal pain. ??? You faint. ??? You are unable to urinate. This information is not intended to replace advice given to you by your health care provider. Make sure you discuss any questions you have with your health care provider. Document Released: 02/02/2006 Document Revised: 07/16/2017 Document Reviewed: 07/18/2016 Else[employer] Interactive Patient Education ? 2019 [employer] documented in this encounter Plan of Treatment Not on file documented as of this encounter Visit Diagnoses Not on filedocumented in this encounter Care Teams Project Management Consultant Relationship Specialty Start Date End Date Emily Estrada [address] [facility] [address] [place] [address] PCP - General 05/14/22 06/09/24 [facility], Provider Not In The System, [place] [address] PCP - General 07/18/24 Lolita Belcher [address] [place] [address], [address] [place] [address] Advanced Registered Nurse Practitioner Primary Care 06/10/24 documented as of this encounter
--- OUTSIDE RECORDS SUMMARY | 2024-08-08 10:53 | XMS_ITS | Encounter Summary ---
Author Organization [employer] Address [address] [place] [address] Care Team Providers Care Assembler Metal Building Name Role Phone Emily Estrada Primary Care Provider Unavail able [facility], Provider Not In The System Primary Care Provider Unavailable Encounter Details Date Type Department Care Team (Late st Contact Info) Description 12/28/2018 Transcribed Document [facility] [place] [address] [place] [address] ProviderJodie MD [address] [place] [address] Social History Tobacco Use Types Packs/Day Years Used Date Smoking Tobacco: Never Assessed Sex and Gender Information Value Date Recorded Sex Assigned at Not on file Legal Sex Male 4:10 PM CDT Gender Identity Not on file Sexual Orientation Straight 05/21/2022 1: 57 PM CDT documented as of this encounter Miscellaneous Notes * Cerner Conversion Note - Historical ProviderMD - 12/28/2018 5:10 AM CENTRAL SERVICE SUPPLY DISTRIBUTOR [place] Suicide Severity Rating Scale (C-SSRS) Entered On: 12/28/2018 5:45 EST Performed On: 12/28/2018 5:42 EST by CHAVO MENDOZA RN [place] Suicide Severity Rating Scale (C-SSRS) CSSRS Past Month Wish to be : No CSSRS Past Month Suicidal Thoughts : No CSSRS Lifetime Suicide Behavior : No Suicide Severity Rating Score : 0 Suicide Severity Rating : No Additional Care Required at this time Thoughts of Harming/Killing Others : No CHAVO MENDOZA RN - 12/28/2018 5:42 EST documented in this encounter Plan of Treatment Not on file documented as of this encounter Visit Diagnoses Not on filedocumented in this encounter Care Teams Assembler Metal Building Relationship Specialty Start Date End Date ShayAbebaTiffany Dineroy [address] [place] [address] [place] [address] PCP - General 05/14/22 06/09/24 [facility], Provider Not In The System, [place] [address] PCP - General 07/18/24 Lolita Belcher [facility] [place] [address], [address] [place] [address] Advanced Registered Nurse Practitioner Primary Care 06/10/24 documented as of this encounter
--- OUTSIDE RECORDS SUMMARY | 2024-08-08 10:53 | XMS_ITS | Encounter Summary ---
Author Organization [employer] Address [address] [place] [address] Care Team Providers Care Search Manager Name Role Phone Emily Estrada Primary Care Provider Unavail able [facility], Provider Not In The System Primary Care Provider Unavailable Encounter Details Date Type Department Care Team (Late st Contact Info) Description 06/19/2021 Transcribed Document [facility] [place] Medicine [place] [address] ProviderJodie MD [address] [place] [address] Social History Tobacco Use Types Packs/Day Years Used Date Smoking Tobacco: Never Assessed Sex and Gender Information Value Date Recorded Sex Assigned at Not on file Legal Sex Male 4:10 PM CDT Gender Identity Not on file Sexual Orientation Straight 05/21/2022 1: 57 PM CDT documented as of this encounter Miscellaneous Notes * Cerner Conversion Note - Historical ProviderMD - 06/19/2021 8:51 AM CDT Patient Education Materials Follows: Dietary Guidelines to Help Prevent Kidney Stones Kidney stones are deposits of minerals and salts that form inside your kidneys. Your risk of developing kidney stones may be greater depending on your diet, your lifestyle, the medicines you take, and whether you have certain medical conditions. Most people can lower their chances of developing kidney stones by following the instructions below. Your dietitian may give you more specific instructions depending on your overall health and the type of kidney stones you tend to develop. What are tips for following this plan? Reading food labels ??? Choose foods with no salt added or low-salt labels. Limit your salt (sodium) intake to less than 1,500 mg a day. ??? Choose foods with calcium for each meal and snack. Try to eat about 300 mg of calcium at each meal. Foods that contain 200?500 mg of calcium a serving include: ? 8 oz (237 mL) of milk, alvkiix-qmlzpwjqgapy-xwlwc milk, and calcium-fortifiedfruit juice. Calcium-fortified means that calcium has been added to these drinks. ? 8 oz (237 mL) of kefir, yogurt, and soy yogurt. ? 4 oz (114 g) of tofu. ? 1 oz (28 g) of cheese. ? 1 cup (150 g) of dried figs. ? 1 cup (91 g) of cooked broccoli. ? One 3 oz (85 g) can of sardines or mackerel. Most people need 1,000?1,500 mg of calcium a day. Talk to your dietitian about how much calcium is recommended for you. Shopping ??? Buy plenty of fresh fruits and vegetables. Most people do not need to avoid fruits and vegetables, even if these foods contain nutrients that may contribute to kidney stones. ??? When shopping for convenience foods, choose: ? Whole pieces of fruit. ? Pre-made salads with dressing on the side. ? Low-fat fruit and yogurt smoothies. ??? Avoid buying frozen meals or prepared deli foods. These can be high in sodium. ??? Look for foods with live cultures, such as yogurt and kefir. ??? Choose high-fiber grains, such as whole-wheat breads, oat bran, and wheat cereals. Cooking ??? Do not add salt to food when cooking. Place a salt shaker on the table and allow each person to add his or her own salt to taste. ??? Use vegetable protein, such as beans, textured vegetable protein (TVP), or tofu, instead of meat in pasta, casseroles, and soups. Meal planning ??? Eat less salt, if told by your dietitian. To do this: ? Avoid eating processed or pre-made food. ? Avoid eating fast food. ??? [...] one serving is about the size of the palm of your hand. ??? Eat at least five servings of fresh fruits and vegetables each day. To do this: ? Keep fruits and vegetables on hand for snacks. ? Eat one piece of fruit or a handful of berries with breakfast. ? Have a salad and fruit at lunch. ? Have two kinds of vegetables at dinner. ??? Limit foods that are high in a substance called oxalate. These include: ? Spinach (cooked), rhubarb, beets, sweet potatoes, and [place] chard. ? Peanuts. ? Potato chips, scottish fries, and baked potatoes with skin on. ? Nuts and nut products. ? Chocolate. ??? If you regularly take a diuretic medicine, make sure to eat at least 1 or 2 servings of fruits or vegetables that are high in potassium each day. These include: ? Avocado. ? Banana. ? [place], prune, carrot, or tomato juice. ? Baked potato. ? Cabbage. ? Beans and split peas. Lifestyle ??? Drink enough fluid to keep your urine pale yellow. This is the most important thing you can do. Spread your fluid intake throughout the day. ??? If you drink alcohol: ? Limit how much you use to: ? 0?1 drink a day for women who are not . ? 0?2 drinks a day for men. ? Be aware of how much alcohol is in your drink. In the [place] one drink equals one 12 oz bottle of beer (355 mL), one 5 oz glass of wine (148 mL), or one 1? oz glass of hard liquor (44 mL). ??? Lose weight if told by your health care provider. Work with your dietitian to find an eating plan and weight loss strategies that work best for you. General information ??? Talk to your health care provider and dietitian about taking daily supplements. You may be told the following depending on your health and the cause of your kidney stones: ? Not to take supplements with vitamin C. ? To take a calcium supplement. ? To take a daily probiotic supplement. ? To take other supplements such as magnesium, fish oil, or vitamin B6. ??? Take cmwh-ikt-rcoenxo and prescription medicines only as told by your health care provider. These include supplements. What foods should I limit? Limit your intake of the following foods, or eat them as told by your dietitian. Vegetables Spinach. Rhubarb. Beets. Canned vegetables. Pickles. Olives. Baked potatoes with skin. Grains Wheat bran. Baked goods. Salted crackers. Cereals high in sugar. Meats and other proteins Nuts. Nut butters. Large portions of meat, poultry, or fish. Salted, precooked, or cured meats, such as sausages, meat loaves, and hot dogs. Dairy Cheese. Beverages Regular soft drinks. Regular vegetable juice. Seasonings and condiments Seasoning blends with salt. Salad dressings. Soy sauce. Ketchup. Barbecue sauce. Other foods Canned soups. Canned pasta sauce. Casseroles. Pizza. Lasagna. Frozen meals. Potato chips. [place] fries. The items listed above may not be a complete list of foods and beverages you should limit. Contact a dietitian for more information. What foods should I avoid? Talk to your dietitian about specific foods you should avoid based on the type of kidney stones you have and your overall health. Fruits Grapefruit. The item listed above may not be a complete list of foods and beverages you should avoid. Contact a dietitian for more information. Summary ??? Kidney stones are deposits of minerals and salts that form inside your kidneys. ??? You can lower your risk of kidney stones by making changes to your diet. ??? The most important thing you can do is drink enough fluid. Drink enough fluid to keep your urine pale yellow. ??? Talk to your dietitian about how much calcium you should have each day, and eat less salt and animal protein as told by your dietitian. This information is not intended to replace advice given to you by your health care provider. Make sure you discuss any questions you have with your health care provider. Document Revised: 01/26/2020 Document Reviewed: 01/26/2020 [employer] Patient Education ? 2020 [employer]. Urology Kidney Stones Kidney stones are rock-like masses that form inside of the kidneys. Kidneys are organs that make pee (urine). A kidney stone may move into other parts of the urinary tract, including: ??? The tubes that connect the kidneys to the bladder (ureters). ??? The bladder. ??? The tube that carries urine out of the body (urethra). Kidney stones can cause very bad pain and can block the flow of pee. The stone usually leaves your body (passes) through your pee. You may need to have a doctor take out the stone. What are the causes? Kidney stones may be caused by: ??? A condition in which certain glands make too much parathyroid hormone (primary hyperparathyroidism). ??? A buildup of a type of crystals in the bladder made of a chemical called uric acid. The body makes uric acid when you eat certain foods. ??? Narrowing (stricture) of one or both of the ureters. ??? A kidney blockage that you were born with. ??? Past surgery on the kidney or the ureters, such as gastric bypass surgery. What increases the risk? You are more likely to develop this condition if: ??? You have had a kidney stone in the past. ??? You have a family history of kidney stones. ??? You do not drink enough water. ??? You eat a diet that is high in protein, salt (sodium), or sugar. ??? You are overweight or very overweight (obese). What are the signs or symptoms? Symptoms of a kidney stone may include: ??? Pain in the side of the belly, right below the ribs (flank pain). Pain usually spreads (radiates) to the groin. ??? Needing to pee often or right away (urgently). ??? Pain when going pee (urinating). ??? Blood in your pee (hematuria). ??? Feeling like you may vomit (nauseous). ??? Vomiting. ??? Fever and chills. How is this treated? Treatment depends on the size, location, and makeup of the kidney stones. The stones will often pass out of the body through peeing. You may need to: ??? Drink more fluid to help pass the stone. In some cases, you may be given fluids through an IV tube put into one of your veins at the hospital. ??? Take medicine for pain. ??? Make changes in your diet to help keep kidney stones from coming back. Sometimes, medical procedures are needed to remove a kidney stone. This may involve: ??? A procedure to break up kidney stones using a beam of light (laser) or shock waves. ??? Surgery to remove the kidney stones. Follow these instructions at home: Medicines ??? Take buvl-pye-vuibjgf and prescription medicines only as told by your doctor. ??? Ask your doctor if the medicine prescribed to you requires you to avoid driving or using heavy machinery. Eating and drinking ??? Drink enough fluid to keep your pee pale yellow. You may be told to drink at least 8?10 glasses of water each day. This will help you pass the stone. ??? If told by your doctor, change your diet. This may include: ? Limiting how much salt you eat. ? Eating more fruits and vegetables. ? Limiting how much meat, poultry, fish, and eggs you eat. ??? Follow instructions from your doctor about eating or drinking restrictions. General instructions ??? Collect pee samples as told by your doctor. You may need to collect a pee sample: ? 24 hours after a stone comes out. ? 8?12 weeks after a stone comes out, and every 6?12 months after that. ??? Strain your pee every time you pee (urinate), for as long as told. Use the strainer that your doctor recommends. ??? Do not throw out the stone. Keep it so that it can be tested by your doctor. ??? Keep all follow-up visits as told by your doctor. This is important. You may need follow-up tests. How is this prevented? To prevent another kidney stone: ??? Drink enough fluid to keep your pee pale yellow. This is the best way to prevent kidney stones. ??? Eat healthy foods. ??? Avoid certain foods as told by your doctor. You may be told to eat less protein. ??? Stay at a healthy weight. Where to find more information ??? National Kidney Foundation (NKF): www.kidney.org ??? U[employer] Care Foundation (UCF): www.urologyhealth.org Contact a doctor if: ??? You have pain that gets worse or does not get better with medicine. Get help right away if: ??? You have a fever or chills. ??? You get very bad pain. ??? You get new pain in your belly (abdomen). ??? You pass out (faint). ??? You cannot pee. Summary ??? Kidney stones are rock-like masses that form inside of the kidneys. ??? Kidney stones can cause very bad pain and can block the flow of pee. ??? The stones will often pass out of the body through peeing. ??? Drink enough fluid to keep your pee pale yellow. This information is not intended to replace advice given to you by your health care provider. Make sure you discuss any questions you have with your health care provider. Document Revised: 06/21/2019 Document Reviewed: 06/21/2019 [employer] Patient Education ? 2020 [employer]. documented in this encounter Plan of Treatment Not on file documented as of this encounter Visit Diagnoses Not on filedocumented in this encounter Care Teams Search Manager Relationship Specialty Start Date End Date DayAbebaBarEmily ordonez [address] [id number] PCP - General 05/14/22 06/09/24 [facility], Provider Not In The System, [place] [address] PCP - General 07/18/24 Lolita Belcher [address], [address] [place] [address] Advanced Registered Nurse Practitioner Primary Care 06/10/24 documented as of this encounter
--- OUTSIDE RECORDS SUMMARY | 2024-08-08 10:53 | XMS_ITS | Encounter Summary ---
Author Organization [employer] Address [address] [place] [address] Care Team Providers Care Special Certificate Dictator Name Role Phone Emily Estrada Primary Care Provider Unavail able [facility], Provider Not In The System Primary Care Provider Unavailable Encounter Details Date Type Department Care Team (Late st Contact Info) Description 12/28/2018 Transcribed Document [facility] [place] Family Medicine [address] [place] [address] ProviderJodie MD [address] [place] [address] Social History Tobacco Use Types Packs/Day Years Used Date Smoking Tobacco: Never Assessed Sex and Gender Information Value Date Recorded Sex Assigned at Not on file Legal Sex Male 4:10 PM CDT Gender Identity Not on file Sexual Orientation Straight 05/21/2022 1: 57 PM CDT documented as of this encounter Miscellaneous Notes * Cerner Conversion Note - Historical ProviderMD - 12/28/2018 9:54 AM WHEEL BORER Shift Summary Note Entered On: 12/28/2018 9:54 EST Performed On: 12/28/2018 9:54 EST by Maricarmen Montenegro RN Shift Summary Note Shift Summary Note : Patient voided. Urine strainer has a stone. Placed in specimen cup Maricarmen Montenegro, MATIAS - 12/28/2018 9:54 EST documented in this encounter Plan of Treatment Not on file documented as of this encounter Visit Diagnoses Not on filedocumented in this encounter Care Teams Special Certificate Dictator Relationship Specialty Start Date End Date MavisBarEmily ordonez [address] [facility] [address] [place] [address] PCP - General 05/14/22 06/09/24 [facility], Provider Not In The System, [place] [address] PCP - General 07/18/24 [facility]ita Belcher [address] [place] [facility] [address] [facility] [place] [id number] Advanced Registered Nurse Practitioner Primary Care 06/10/24 documented as of this encounter
--- OUTSIDE RECORDS SUMMARY | 2024-08-08 10:53 | XMS_ITS | Encounter Summary ---
Author Organization [employer] Address [address] [place] [address] Care Team Providers Care Protector Plate Attacher Name Role Phone Emily Estrada Primary Care Provider Unavail able [facility], Provider Not In The System Primary Care Provider Unavailable Encounter Details Date Type Department Care Team (Late st Contact Info) Description 12/28/2018 Transcribed Document [facility] [place] [address] [place] [address] ProviderJodie MD [address] [place] [address] Social History Tobacco Use Types Packs/Day Years Used Date Smoking Tobacco: Never Assessed Sex and Gender Information Value Date Recorded Sex Assigned at Not on file Legal Sex Male 4:10 PM CDT Gender Identity Not on file Sexual Orientation Straight 05/21/2022 1: 57 PM CDT documented as of this encounter Miscellaneous Notes * Cerner Conversion Note - Historical ProviderMD - 12/28/2018 11:11 AM DIAMOND FINISHING SUPERVISOR Patient: TAY THOMAS Age: 63 Years Sex: Male : 1955 Chief Complaint c/o lower back pain radiating around to lower abd; Pt dx w/ rt kidney stone on Thursday at [facility] 4.[address] scan; appt to see Dr. Young on Thursday Primary Care Provider DESIREE LEE [facility] Urologist: Dr. Young History of Present Illness 63yo male with hx of gout, uric acid kidney stones, htn, thyroid cancer sp thyroidectomy, HLP presented with left flank pain since Thursday. Patient states he actually had a gout flare of the left ankle which improved last weekend. He typically gets kidney stones following these flares. Has a history of uric acid stones on allopurinol suppression which she has been taking. This episode began on Thursday morning. He went to [facility] on Thursday and was diagnosed with a 4.6 cm renal stone and given pain medicine and follow up with Dr. Young his primary urologist on Thursday. Patient states that overnight his pain intensified, he had a low-grade temperature (he did not use a thermometer), he began to have nausea with vomiting and thus presented to [facility]. In the ER he was found to have Mild left-sided hydronephrosis and hydroureter secondary to a 4 mm distal left ureteral stone. Bilateral nonobstructing renal stones. He was referred to our service and urology has plans to take him to the operating room this morning. Since arrival to the floor patient has passed a kidney stone which is bedside in a cup. He states he feels markedly improved and his pain is gone. He has no complaints except for feeling sleepy from IV pain medicine. Review of Systems Constitutional: [subjective fever] HEENT: [No sore throat, voice changes] Respiratory: [No shortness of breath, cough, pain on breathing] Cardiovascular: [No Chest pain, palpitations, syncope] Gastrointestinal: [+NV] Genitourinary: [+ Left flank pain] Barrett/Lymph: [Negative for bruising tendency, swollen lymph glands, nosebleeds, history of anticoagulation] Endocrine: [Negative for excessive thirst, excessive hunger, excessive urination, heat or cold intolerance] Musculoskeletal: [No back pain, neck pain, joint pain Integumentary: [No rash, pruritus, abrasions] Neurologic: [No weakness, numbness, frequent headaches] Psychiatric: [No anxiety, depression, mood changes] Vital Signs T: 36.7 ??C HR: 62(Peripheral) RR: 18 BP: 125/77 SpO2: 97% HT: 185.42 cm WT: 116.62 kg BMI: 33.9 Oxygen Settings (Last) Oxygen Therapy Mode: Room air (12/28/18 05:18:00) Physical Exam General: [Alert and oriented, well nourished, no acute distress]. Neurologic: [Awake, alert, and oriented X3, CN II-XII intact]. Eye: [PERRL, EOMI, normal conjunctiva]. HENT: [Normocephalic, normal hearing, moist oral mucosa] Neck: [Supple, no JVD]. Lungs: [Clear to auscultation, non-labored respiration]. Heart: [Normal rate, regular rhythm, no murmur, or edema]. Abdomen: [Soft, non-tender, non-distended, normal bowel sounds, obese]. Musculoskeletal: [Normal range of motion and strength, no tenderness or swelling]. Skin: [Skin is warm, dry and pink, no rashes]. Psychiatric: [Cooperative, appropriate mood and affect]. Assessment/Plan Acute left sided hydronephrosis and hydroureter secondary to a 4 mm distal left ureteral stone -pain control -IVF -flomax -passed stone -urology consult, discussed w Dr. Suárez -no need for abx therapy Hypothyroidism -continue levothyroxine Gout/Uric acid stones -continue allopurinol Anemia -felt dilutional -monitor DVT ppx: none for OR gi ppx: pepcid full code time spent: 31 mins. Orders: Discharge Problem List/Past Medical History Ongoing Gout High cholesterol Hypertension Kidney stone ME (myocardial infarction) S/P cholecystectomy Thyroid nodule Torn meniscus Procedure/Surgical History Thyroidectomy (2010), Cyst removal from right ankle, Lithotripsy, Right rotator cuff repair. cholecystectomy Home Medications (9) Active allopurinol 300 mg oral tablet 300 mg = 1 Tab, Oral, Daily aspirin 81 mg, Oral, Daily atorvastatin 10 mg oral tablet , Oral, Daily Centrum 1 Tab, Oral, Daily Fish Oil 500 mg oral capsule 500 mg = 1 Cap, Oral, Daily lisinopril 20 mg, Oral, Daily Percocet 10/325 oral tablet 1 Tab, PRN, Oral, Q6H Synthroid 75 mcg, Oral, Daily vitamin E 400 Int Units, Oral, Daily Allergies No Known Allergies Social History Alcohol Alcohol Use History Yes. Total Drinks/Week: 5. Use in Last 12 Months: Yes. Days/Week: 2. Total Drinks/Week: 6. Date/Time of Last Drink: Thursday night. Use in Last 12 Months: Yes. Alcohol Use Frequency Weekly. Substance Abuse Drug Use Hx: No. Use in Last 12 Months: No. Tobacco Smoking Status Current every day smoker. Cigars/pipes daily Smoking Frequency Within Last 30 Days. Use in Last 12 Months: Cigars. Years of Use: 10. Family History +HTN Diagnostic Results Radiology Results (Last 48 hours) [id number] -- 12/28/2018 08:06 CT Abdomen Pelvis WO (12/28/2018 06:06) Result: CT SCAN OF ABDOMEN AND PELVIS WITHOUT CONTRASTHISTORY: Lower abdominal painPROCEDURE: Axial images were obtained from the lung bases to the pubicsymphysis by computed tomography.FINDINGS: ABDOMEN: The lung bases are clear. The heart size is normal. The limited noncontrast images of the liver demonstrates fatty infiltration.Cholecystectomy clips are present. The spleen is normal. No adrenalmasses are seen. The aorta is normal in caliber. There is no significant free fluid or adenopathy. There are 2 nonobstructing right renal stones measuring up to 3 mm. There are 2 nonobstructing left renal stones measuring up to 2 mm. There is exophytic left renal lesion thatis likely a cyst. There is mild left-sided hydronephrosis andhydroureter.PELVIS: The appendix is normal. There is sigmoid diverticulosis. Theurinary bladder wall is thickened likely due to intussusception. Thereis a 4 mm distal left ureteral stone. There is no significant fluid or adenopathy.IMPRESSION: Mild left-sided hydronephrosis and hydroureter secondary to a 4 mm distal left ureteral stone.Bilateral nonobstructing renal stones.Images reviewed, interpreted, and dictated by Dr. Brigette Sheikh.Transcribed by Ministerio Carnes PA-C.I have personally viewed, interpreted and dictated the examination. Ihave read and agree with the above final transcribed report. Lab Results Test Name Test Result Date/Time Sodium Level 137 mmol/L 12/28/2018 05:37 EST Potassium Level 4.0 mmol/L 12/28/2018 05:37 EST Chloride Level 105 mmol/L 12/28/2018 05:37 EST Carbon Dioxide Level 27 mmol/L 12/28/2018 05:37 EST Anion Gap 9 12/28/2018 05:37 EST Glucose Level 137 mg/dL (High) 12/28/2018 05:37 EST Blood Urea Nitrogen 24 mg/dL (High) 12/28/2018 05:37 EST Creatinine Level 1.10 mg/dL 12/28/2018 05:37 EST eGFR >60 mL/min/1.73m2 12/28/2018 05:37 EST eGFR NonAfrican >60 mL/min/1.73m2 12/28/2018 05:37 EST Bun/Creatinine 21.8 (High) 12/28/2018 05:37 EST Calcium Level 8.4 mg/dL 12/28/2018 05:37 EST WBC 10.2 K/uL (High) 12/28/2018 05:37 EST RBC 4.14 Million/uL (Low) 12/28/2018 05:37 EST Hgb 13.0 g/dL (Low) 12/28/2018 05:37 EST Hct 39.3 % (Low) 12/28/2018 05:37 EST MCV 94.9 fL (High) 12/28/2018 05:37 EST MCH 31.4 pg 12/28/2018 05:37 EST MCHC 33.1 Gram/dL 12/28/2018 05:37 EST Platelet Count 241 K/uL 12/28/2018 05:37 EST MPV 9.4 fL 12/28/2018 05:37 EST RDW 12.1 % 12/28/2018 05:37 EST Neut % 82.6 % (High) 12/28/2018 05:37 EST Neut # 8.41 K/uL (High) 12/28/2018 05:37 EST Lymph % 8.3 % (Low) 12/28/2018 05:37 EST Lymph # 0.84 x10(3)/uL (Low) 12/28/2018 05:37 EST Blount % 7.6 % 12/28/2018 05:37 EST Blount # 0.77 K/uL 12/28/2018 05:37 EST Eos % 0.2 % 12/28/2018 05:37 EST Eos # 0.02 x10(3)/uL 12/28/2018 05:37 EST Baso % 0.6 % 12/28/2018 05:37 EST Baso # 0.06 x10(3)/uL 12/28/2018 05:37 EST Slide Review No 12/28/2018 05:37 EST IG# 0.07 x10(3)/uL (High) 12/28/2018 05:37 EST IG% 0.70 % (High) 12/28/2018 05:37 EST Urine Type U CleanCatch 12/28/2018 05:45 EST Urine Color YELLOW2 12/28/2018 05:45 EST Urine Appearance CLEAR2 12/28/2018 05:45 EST Urine Specific [place] 1.023 12/28/2018 05:45 EST Urine pH Dipstick 5.5 (Low) 12/28/2018 05:45 EST Urine Leukocyte Esterase NEGATIVE2 12/28/2018 05:45 EST Urine Nitrite NEGATIVE2 12/28/2018 05:45 EST Urine Protein Dipstick TRACE2 (Abnormal) 12/28/2018 05:45 EST Urine Glucose Dipstick NEGATIVE2 12/28/2018 05:45 EST Urine Ketones Dipstick NEGATIVE2 12/28/2018 05:45 EST Urine Urobilinogen Dipstick 0.2 12/28/2018 05:45 EST Urine Bilirubin Dipstick NEGATIVE2 12/28/2018 05:45 EST Urine Blood Dipstick LARGE2 (Abnormal) 12/28/2018 05:45 EST Ur RBC 20-50 (Abnormal) 12/28/2018 05:45 EST Ur WBC 0-2 12/28/2018 05:45 EST Ur Bacteria 1+ (Abnormal) 12/28/2018 05:45 EST Ur Mucous 2+ (Abnormal) 12/28/2018 05:45 EST Ur Hyaline Casts 0-2 (Abnormal) 12/28/2018 05:45 EST Ur Broad Hyaline Casts 0-2 (Abnormal) 12/28/2018 05:45 EST Ur Yeast, Budding Trace 12/28/2018 05:45 EST Additional Documentation Code Status No Code Status Order on Record Electronically signed by Jane [facility] Conversion Inspector Hairspring Truing Cerner at 06/03/2022 10:52 PM CDT documented in this encounter Plan of Treatment Not on file documented as of this encounter Visit Diagnoses Not on filedocumented in this encounter Care Teams Protector Plate Attacher Relationship Specialty Start Date End Date Emily Estrada [address] [facility] [address] [facility] [address] PCP - General 05/14/22 06/09/24 [facility], Provider Not In The System, [place] [address] PCP - General 07/18/24 Lolita Belcher [address] [place] [address] [place] [address], [address] [address] Advanced Registered Nurse Practitioner Primary Care 06/10/24 documented as of this encounter
--- OUTSIDE RECORDS SUMMARY | 2024-08-08 10:53 | XMS_ITS | Encounter Summary ---
Author Organization [employer] Address [address] [place] [address] Care Team Providers Care Rehabilitation Caseworker Name Role Phone Emily Estrada Primary Care Provider Unavail able [facility], Provider Not In The System Primary Care Provider Unavailable Encounter Details Date Type Department Care Team (Late st Contact Info) Description 12/28/2018 Transcribed Document [facility] [place] [address] [place] [address] ProviderJodie MD [address] [place] [address] Social History Tobacco Use Types Packs/Day Years Used Date Smoking Tobacco: Never Assessed Sex and Gender Information Value Date Recorded Sex Assigned at Not on file Legal Sex Male 4:10 PM CDT Gender Identity Not on file Sexual Orientation Straight 05/21/2022 1: 57 PM CDT documented as of this encounter Miscellaneous Notes * Cerner Conversion Note - Historical ProviderMD - 12/28/2018 11:46 AM MICROFILM OPERATOR Stroke/Warfarin Instructions Entered On: 12/28/2018 11:46 EST Performed On: 12/28/2018 11:46 EST by Maricarmen Montenegro RN Stroke/Warfarin Instructions Stroke/TIA Discharge Ins : N/A Warfarin Discharge Ins : N/A Maricarmen Montenegro, MATIAS - 12/28/2018 11:46 EST documented in this encounter Plan of Treatment Not on file documented as of this encounter Visit Diagnoses Not on filedocumented in this encounter Care Teams Rehabilitation Caseworker Relationship Specialty Start Date End Date MavisBarEmily ordonez [address] [facility] [address] [place] [address] PCP - General 05/14/22 06/09/24 [facility], Provider Not In The System, [place] [address] PCP - General 07/18/24 Lolita Belcher [address] [place] [facility] [address] [facility], [address] [place] [id number] Advanced Registered Nurse Practitioner Primary Care 06/10/24 documented as of this encounter
--- OUTSIDE RECORDS SUMMARY | 2024-08-08 10:53 | XMS_ITS | Encounter Summary ---
Author Organization [employer] Address [address] [place] [address] Care Team Providers Care Sr. Manager Corporate Communications Name Role Phone Emily Estrada Primary Care Provider Unavail able [facility], Provider Not In The System Primary Care Provider Unavailable Encounter Details Date Type Department Care Team (Late st Contact Info) Description 12/28/2018 Transcribed Document [facility] [place] Family Medicine [address] [place] [address] ProviderJodie MD [address] [place] [address] Social History Tobacco Use Types Packs/Day Years Used Date Smoking Tobacco: Never Assessed Sex and Gender Information Value Date Recorded Sex Assigned at Not on file Legal Sex Male 4:10 PM CDT Gender Identity Not on file Sexual Orientation Straight 05/21/2022 1: 57 PM CDT documented as of this encounter Miscellaneous Notes * Cerner Conversion Note - Historical ProviderMD - 12/28/2018 7:58 AM EMERGENCY MANAGEMENT PROGRAM SPECIALIST Phone Call for Consults Entered On: 12/28/2018 8:25 EST Performed On: 12/28/2018 8:23 EST by Miguel Angel Moore Emergency Room Residential Specialist Phone Call for Consults Consult Phone Call/Page Attempt : First call Physician Requesting Consult : VLAD TAYLOR MD-EM[facility] Date and Time Call Returned : 12/28/2018 8:24 EST Physician Returning Call : jayla bourgeois Jared S, Emergency Room Residential Specialist - 12/28/2018 8:23 EST documented in this encounter Plan of Treatment Not on file documented as of this encounter Visit Diagnoses Not on filedocumented in this encounter Care Teams Sr. Manager Corporate Communications Relationship Specialty Start Date End Date Emily Estrada [address] [place] [address] [address] PCP - General 05/14/22 06/09/24 [facility], Provider Not In The System, [place] [address] PCP - General 07/18/24 Lolita Belcher [address], [address] [place] [address] Advanced Registered Nurse Practitioner Primary Care 06/10/24 documented as of this encounter
--- OUTSIDE RECORDS SUMMARY | 2024-08-08 10:53 | XMS_ITS | Encounter Summary ---
Author Organization [employer] Address [address] [place] [address] Care Team Providers Care Clinical Research Analyst Name Role Phone Emily Estrada Primary Care Provider Unavail able [facility], Provider Not In The System Primary Care Provider Unavailable Encounter Details Date Type Department Care Team (Late st Contact Info) Description 12/28/[address] [facility] [place] Family Medicine [address] [place] [address] ProviderJodie MD [address] [place] [address] Social History Tobacco Use Types Packs/Day Years Used Date Smoking Tobacco: Never Assessed Sex and Gender Information Value Date Recorded Sex Assigned at Not on file Legal Sex Male 4:10 PM CDT Gender Identity Not on file Sexual Orientation Straight 05/21/2022 1: 57 PM CDT documented as of this encounter Miscellaneous Notes * Cerner Conversion Note - Historical ProviderMD - 12/28/2018 11:11 AM WAREHOUSE OPERATOR [address] , [place] [address] Patient Copy Patient Information: Name: TAY THOMAS Current Date: 12/28/2018 11:11:54 : 1955 Patient [place]: [place] [address] Patient Attending Physician: IMER PIZARRO MD-[facility] Primary Care Provider: [facility] Primary Care Provider Discharge Diagnosis: Left ureteral stone Weight on Admission: 245 lb, 0 oz Comment: Follow-up Instructions: With: Address: When: Follow up with primary care provider Within 5 to 7 days With: Address: When: VLAD LEPE MD-URO [address] [place] [address] 12:00 AM Comments: Call for follow up appointment Discharge Instructions: Immunizations Documented During Stay: No Immunizations Found Heart Failure Discharge Instructions (if any): Stroke Related Discharge Instructions (if any): Warfarin Related Discharge Instructions (if any): Final Medication List: Other Medications acetaminophen-oxyCODONE (Percocet 10/325 oral tablet) 1 Tablet(s) Oral Every 6 Hours as needed for pain. allopurinol (allopurinol 300 mg oral tablet) 1 Tablet(s) Oral Every Day. aspirin 81 Milligram(s) Oral Every Day. atorvastatin (atorvastatin 10 mg oral tablet) Oral Every Day. levothyroxine (Synthroid) 75 Microgram(s) Oral Every Day. lisinopril 20 Milligram(s) Oral Every Day. multivitamin with minerals (Centrum) 1 Tablet(s) Oral Every Day. omega-3 polyunsaturated fatty acids (Fish Oil 500 mg oral capsule) 1 Capsule(s) Oral Every Day. vitamin E 400 International Units Oral Every Day. Patient Allergies: No Known Allergies Medication Instructions: Take your medications faithfully. Do NOT skip medication. Do NOT stop taking medications without the direction of a physician. Carry a list of your medications with you at all times, and take this medication list with you to your first follow up visit. Report any side effects. Avoid herbal remedies unless discussed with your physician. As part of your treatment plan, your physician may have prescribed a limited course of a controlled substance. This medication may be given to help people with moderate or severe pain or for other medical conditions, but there are risks involved with treatment. Common side effects may include nausea, constipation, drowsiness, sweating, itching, dry mouth, and rash. More serious side effects may include cognitive and motor impairment, like problems with thinking, concentrating, alertness, and movement (e.g. slowed reflexes), and driving and operating heavy machinery can be dangerous. It is important for you to talk to your physician if you have these side effects or questions. These controlled substances can produce physical dependence and be habit-forming if taken for an extended period of time, which means that the body has gotten used to them and may experience withdrawal symptoms if they are abruptly stopped. Withdrawal symptoms can include runny nose, sweating, goose bumps, diarrhea, abdominal cramping, rapid heartbeat, difficulty sleeping, and nervousness. Patient education materials: Dietary Guidelines to Help Prevent Kidney Stones [...] Rhubarb. ? Beets. ? Potato chips and cypriot fries. ? Nuts. ??? If you regularly take a diuretic medicine, make sure to eat at least 1?2 fruits or vegetables high in potassium each day. These include: ? Avocado. ? Banana. ? Wilkinson, prune, carrot, or tomato juice. ? Baked [...] Casseroles. Pizza. Lasagna. Frozen meals. Potato chips. Eritrean fries. Summary ??? You can reduce your [...] 05/30/2011 Document Revised: 01/13/2017 Document Reviewed: 01/13/2017 [employer] Patient Education ? 2018 [employer] Kidney Stones Kidney stones (urolithiasis) are [...] kidney stones in the future. ??? Take [id number] and prescription medicines only as told by [...] 02/02/2006 Document Revised: 07/16/2017 Document Reviewed: 07/18/2016 [employer] Patient Education ? 2019 [employer] CIGARETTE SMOKING: The facts are clear, cigarette smoking will shorten your life. Smoking can cause many illnesses along the way. As a healthcare provider, we recommend that you stop smoking. Assistance with quitting is available by contacting 1-404-TPHT-NOW. This is a free resource providing counseling, support, and referral. Or you may contact your personal physician. 4 WAYS TO GET AHEAD OF SEPSIS SEPSIS is a MEDICAL EMERGENCY. Time matters! Infections put you and your family at risk for a life-threatening condition called sepsis. Sepsis is the body???s extreme response to an infection. It is life-threatening, and without timely treatment, sepsis can rapidly lead to tissue damage, organ failure, and . Sepsis happens when an infection you already have???in your skin, lungs, urinary tract or somewhere else???triggers a chain reaction throughout your body. 1 PREVENT INFECTIONS Take good care of chronic conditions. Talk to your doctor about getting the recommended vaccines. 2 PRACTICE GOOD HYGIENE Wash your hands frequently. Keep cuts or open sores clean and covered until they are healed. 3 KNOW THE SYMPTOMS Confusion or disorientation Shortness of breath High heart rate Fever, shivering, or feeling very cold Extreme pain or discomfort Clammy or sweaty skin 4 ACT FAST Get medical care IMMEDIATELY if you suspect sepsis or if you have an infection that???s not getting better or is getting worse. To learn more about sepsis and how to prevent infections, visit www.cdc.gov/sepsis. STROKE is an EMERGENCY Every Minute Counts ACT F.A.S.T! FACE ?? Facial droop ?? Uneven smile ARM ?? Arm numbness ?? Arm weakness SPEECH ?? Slurred speech ?? Difficulty speaking or understanding TIME ?? Call 911 and get to the hospital immediately Have the ambulance go to the nearest stroke center. STROKE Risk Factors High blood pressure High cholesterol Heart Disease Diabetes Smoking Heavy alcohol use Physical inactivity and obesity Atrial Fibrillation (irregular heartbeat) Family history of stroke Reminder: Be sure to sign up for the [employer] patient portal, which gives you 08/09 access to your medical information ??? including these discharge instructions ??? using your computer, smartphone, or tablet. Just go to [employer] to get started. Questions? Call . [facility] would like to thank you for allowing us to assist you with your healthcare needs. WILLIAM Nascimento TERRY L, (or open claims representative) have received the above patient education materials/instructions and have verbalized understanding: Patient Signature _ Date/Time Patient Laydown Machine Operator Signature (if needed) Date/Time Clinician/Hospital Laydown Machine Operator Signature (if needed) Date/Time documented in this encounter Plan of Treatment Not on file documented as of this encounter Visit Diagnoses Not on filedocumented in this encounter Care Teams Clinical Research Analyst Relationship Specialty Start Date End Date DayAbebaBarEmily ordonez [address] [place] [address] PCP - General 05/14/22 06/09/24 [facility], Provider Not In The System, [place] [address] PCP - General 07/18/24 Lolita Belcher [address] [place] [address] Advanced Registered Nurse Practitioner Primary Care 06/10/24 documented as of this encounter
--- OUTSIDE RECORDS SUMMARY | 2024-08-08 10:53 | XMS_ITS | Encounter Summary ---
Author Organization [employer] Address [address] [place] [address] Care Team Providers Care Splash Line Operator Name Role Phone Emily Estrada Primary Care Provider Unavail able [facility], Provider Not In The System Primary Care Provider Unavailable Encounter Details Date Type Department Care Team (Late st Contact Info) Description 12/29/2018 Transcribed Document 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 Authorization Entered On: 12/29/2018 11:00 EST Performed On: 12/29/2018 11:00 EST by TOMASZ JEAN-BAPTISTE RN-Utilization Review Primary Insurance Authorization Authorization and Policy Numbers : Insurance 1 Health Plan: MEDICARE Policy Number: [id number] Authorization Number: Insurance 2 Health Plan: A[employer] N Policy Number: [id number] Authorization Number: Insurance Primary Name : MEDICARE Policy Number: [id number] Authorized Service Begin Date-Primary : 12/28/2018 EST Historical Authorization Comments-Primary : No Authorization Comments Found TOMASZ JEAN-BAPTISTE, RN-Utilization Review - 12/29/2018 11:00 EST documented in this encounter Plan of Treatment Not on file documented as of this encounter Visit Diagnoses Not on filedocumented in this encounter Care Teams Splash Line Operator Relationship Specialty Start Date End Date Emily Estrada [address] [place] [phone] PCP - General 05/14/22 06/09/24 [facility], Provider Not In The System, [place] [address] PCP - General 07/18/24 Lolita Belcher [address], [address] [place] [address] Advanced Registered Nurse Practitioner Primary Care 06/10/24 documented as of this encounter
--- OUTSIDE RECORDS SUMMARY | 2024-08-08 10:53 | XMS_ITS | Encounter Summary ---
Author Organization [employer] Address [address] [place] [address] Care Team Providers Care Noise Abatement Engineer Name Role Phone Emily Estrada Primary Care Provider Unavail able [facility], Provider Not In The System Primary Care Provider Unavailable Encounter Details Date Type Department Care Team (Late st Contact Info) Description 12/28/2018 Transcribed Document [facility] Family Medicine [address] [place] [address] ProviderJodie MD [address] [place] [address] Social History Tobacco Use Types Packs/Day Years Used Date Smoking Tobacco: Never Assessed Sex and Gender Information Value Date Recorded Sex Assigned at Not on file Legal Sex Male 4:10 PM CDT Gender Identity Not on file Sexual Orientation Straight 05/21/2022 1: 57 PM CDT documented as of this encounter Miscellaneous Notes * Cerner Conversion Note - Historical ProviderMD - 12/28/2018 5:10 AM 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 Young on Thursday Khloe Fletcher, MATIAS - 12/28/2018 5:18 EST DCP GENERIC CODE Tracking Acuity : 3 - Urgent Tracking Group : [facility] ED Khloe Fletcher RN - 12/28/2018 5:18 EST Mode of Arrival : Ambulatory Transported to ED by : Walk in To Room Via : Ambulate Accompanied By : Spouse ED Vital Signs : Document Height & Weight : Document ED Reason for Visit : Document Tetanus Immunization : Greater than 10 years Khloe Fletcher RN - 12/28/2018 5:18 EST Infectious Disease History Infectious Disease History : Chicken pox/Shingles, Influenza, Measles, Mumps Fever/Chills Last 48 Hours : No Travel To Regions with Travel Advisories : No Travel Outside [place] Within Last 30 Days : No Contact With Traveler to Advisory Region : No Tuberculosis Symptoms : None Khloe Fletcher RN - 12/28/2018 5:18 EST Vital Signs ED Temperature Source : Oral Temperature Mode : Fahrenheit Temperature, Fahrenheit : 98.1 Deg F ED Pain : Yes Clinical Temperature, C : 36.7 Deg C Oxygen Therapy Mode : Room air Peripheral Pulse Rate : 71 bpm Respiratory Rate : 18 Breaths/Min Blood Pressure Location : Arm, right upper Blood Pressure Source : Non-Invasive BP Device Systolic Blood Pressure : 140 mmHg Diastolic Blood Pressure : 77 mmHg Oxygen Saturation : 98 % Khloe Fletcher RN - 12/28/2018 5:18 EST Diagnosis Control ED (As Of: 12/28/2018 05:24:00 EST) Problems(Active) Gout (SNOMED CT :681344259 ) Name of Problem: Gout ; Recorder: Roseanna Humphrey RN; Confirmation: Confirmed ; Classification: Patient Stated ; Code: [id number] ; Contributor System: [employer]Chart ; Last Updated: 12/11/2016 1:05 EDT ; Life Cycle Date: 12/11/2016 ; Life Cycle Status: Active ; Vocabulary: SNOMED CT High cholesterol (SNOMED CT :49960362 ) Name of Problem: High cholesterol ; Recorder: Roseanna Humphrey RN; Confirmation: Confirmed ; Classification: Patient Stated ; Code: [id number] ; Contributor System: [employer]Chart ; Last Updated: 12/11/2016 1:05 EDT ; Life Cycle Date: 12/11/2016 ; Life Cycle Status: Active ; Vocabulary: SNOMED CT Hypertension (SNOMED CT :0893655920 ) Name of Problem: Hypertension ; Recorder: Rosaenna Humphrey RN; Confirmation: Confirmed ; Classification: Patient Stated ; Code: [id number] ; Contributor System: PowerChart ; Last Updated: 12/11/2016 1:05 EDT ; Life Cycle Date: 12/11/2016 ; Life Cycle Status: Active ; Vocabulary: SNOMED CT Kidney stone (SNOMED CT :771759947 ) Name of Problem: Kidney stone ; Recorder: Roseanna Humphrey RN; Confirmation: Confirmed ; Classification: Patient Stated ; Code: [id number] ; Contributor System: PowerChart ; Last Updated: 12/11/2016 1:06 EDT ; Life Cycle Date: 12/11/2016 ; Life Cycle Status: Active ; Vocabulary: SNOMED CT GA (myocardial infarction) (SNOMED CT :94100859 ) Name of Problem: GA (myocardial infarction) ; Recorder: Roseanna Humphrey RN; Confirmation: Confirmed ; Classification: Patient Stated ; Code: 11022603 ; Contributor System: [employer]Chart ; Last Updated: 12/11/2016 1:06 EDT ; Life Cycle Date: 12/11/2016 ; Life Cycle Status: Active ; Vocabulary: SNOMED CT Thyroid nodule (SNOMED CT :885336482 ) Name of Problem: Thyroid nodule ; Recorder: Roseanna Humphrey RN; Confirmation: Confirmed ; Classification: Patient Stated ; Code: [id number] ; Contributor System: [employer]Chart ; Last Updated: 12/11/2016 1:06 EDT ; Life Cycle Date: 12/11/2016 ; Life Cycle Status: Active ; Vocabulary: SNOMED CT Torn meniscus (SNOMED CT :5502703517 ) Name of Problem: Torn meniscus ; Recorder: Roseanna Humphrey RN; Confirmation: Confirmed ; Classification: Patient Stated ; Code: [id number] ; Contributor System: [employer] ; Last Updated: 12/11/2016 1:06 EDT ; Life Cycle Date: 12/11/2016 ; Life Cycle Status: Active ; Vocabulary: SNOMED CT Diagnoses(Active) Flank pain Date: 12/28/2018 ; Diagnosis Type: Reason For Visit ; Confirmation: Complaint of ; Clinical Dx: Flank pain ; Classification: Medical ; Clinical Service: Non-Specified ; Code: PNED ; Probability: 0 ; Diagnosis Code: [id number] ED Height and Weight Height Source : Stated Height Entry Format : [place] Height, Feet : 6 ft(Converted to: 183 cm, 72 Inch) Height, Inches : 1 Inch(Converted to: 0 ft 1 Inch, 2.54 cm) Clinical Height : 185.42 cm Weight Source, ED : Critical estimated dosing weight Weight Entry Format : [place] Weight, Pounds : 245 lb Clinical Dosing Weight : 111.36 kg Body Surface Area (BSA) : 2.35 m2 Body Mass Index : 32.4 kg/m2 (HI) [place] Body Weight (IBW) : 78.88 kg Khloe Fletcher RN - 12/28/2018 5:18 EST Pain Assessment Pain Assessment : Initial assessment Pain Scale Used : 0-10 Scale Location : Back, lower Onset : Acute Quality : Sharp, Stabbing Khloe Fletcher RN - 12/28/2018 5:18 EST Pain Scale Intensity : 8 Khloe Fletcher RN - 12/28/2018 5:18 EST Image 4 - Images currently included in the form version of this document have not been included in the text rendition version of the form. documented in this encounter Plan of Treatment Not on file documented as of this encounter Visit Diagnoses Not on filedocumented in this encounter Care Teams Noise Abatement Engineer Relationship Specialty Start Date End Date Emily Estrada [address] [place] [phone] PCP - General 05/14/22 06/09/24 [facility], Provider Not In The System, [place] [address] PCP - General 07/18/24 Lolita Belcher [address], [address] [place] [address] Advanced Registered Nurse Practitioner Primary Care 06/10/24 documented as of this encounter
--- OUTSIDE RECORDS SUMMARY | 2024-08-08 10:53 | XMS_ITS | Continuity of Care Document ---
Author Organization [facility] Clinniko cFID[address] [facility] Address [address] [place] [address] Care Team Providers Care Chargemaster Analyst Name Role Phone DESIREE LEE Primary Care Provider Assessment Encounter Date Assessment Date Assessment LastModified by Organization Details LastModified Time 07/12/2024 07/12/2024 68-year-old male with a history of recurrent urolithiasis presenting with persistent urinary symptoms post-stent removal. The recent infection and ongoing symptoms raise concerns of unresolved calculi or potential complications requiring further imaging and examination. - Schedule STAT CT scan to assess stone burden and evaluate for signs of infection. - Administered IM rocephin in the office to address possible current infection. - Notify Dr. Lepe and ensure continuity of care. - Advise patient on the importance of seeking emergency care if condition worsens. [email or web address] Not available 07/12/2024 20:00:51 Plan of Treatment Reminders Order Date Submit Date Provider Last Modified By Organization Details Last Modified Time Details Appointments RECHECK 2024 01:45P M DEVIN PUENTE PA-C Not available Not available Not available Lab urinalysi s panel, auto 2024 025 [email or web address] 4 [facility]ly [facility], [address], [place], [address], 07/12/2024 14:16:00 culture, urine 2024 025 [facility], [address] [place] [address], [phone], 07/13/2024 14:38:02 CBC w/ auto diff 2024 [facility], [address] [place] [address], [phone], 07/12/2024 18:57:35 BMP, serum or plasma 2024 [facility], [address] [place] [address], [address], 07/12/2024 19:16:21 Referral None recorded. Procedures None recorded. Surgeries None recorded. Imaging CT, abdomen + pelvis, w/o contrast 2024 [facility], [address] [place] [address], [phone], 07/12/2024 15:03:06 Medication Orders ceftriaxo ne 1 gram solution for injection 2024 [email or web address] 4 [facility], [address] [place] [address], [phone], 07/12/2024 16:27:48 Patient TargetsNo targets recorded. Patient Instructions Encounter Date Encounter Id Patient Instructions Last Modified By Organization Details Last Modified Time 07/12/2024 [id number] - Take prescribe d antibiotics as directed. - Drink plenty of water and maintain dietary changes. - Go to the ER if symptoms worsen or if feeling very ill. - Follow up with Dr. Lepe for ongoing care. [email or web address] Not available 07/12/2024 14:16:44 I discussed with the patient the need for a CT scan to provide clarity on the presence of stones or any inflammation contributing to his symptoms. We proceeded with immediate administration of antibiotics to preempt potential infection similar to the previous episode. I relayed the importance of attending the ER promptly if symptoms deteriorate and ensured that Dr. Lepe would be informed about the current status for a coordinated approach in management. Consent for the suggested plan was obtained, and the patient was amenable to the outlined steps and the need for quick escalation if necessary. [email or web address] Not available 07/12/2024 19:57:57 Reason for Referral None Reported. Results Created Date Observation Date Name Description Value Unit Range Abnormal Flag Note LastModifiedBy Organization Detail LastModifiedTime 07/13/19 25 07/12/2024 urina lysis panel , auto Unknown Analyte Clean Catch Not Available [facility] [address] [place] [address] [address], [place], [address], 07/12/2024 13:57:15 07/13/19 25 07/12/2024 urina lysis panel , auto Unknown Analyte Brillion Not Available [facility] [address], [place], [address], 07/12/2024 13:57:15 07/13/19 25 07/12/2024 urina lysis panel , auto Unknown Analyte Clear Not Available [facility] [address], [place], [address], 07/12/2024 13:57:15 07/13/19 25 07/12/2024 urina lysis panel , auto Unknown Analyte 1.025 Not Available [facility] [address], [place], [address], 07/12/2024 13:57:15 07/13/19 25 07/12/2024 urina lysis panel , auto Unknown Analyte 1.003 - 1.030 Not Available [facility] [address], [place], [address], 07/12/2024 13:57:15 07/13/19 25 07/12/2024 urina lysis panel , auto Unknown Analyte 5.0 Not Available [facility] [place] [address], [place], [address], 07/12/2024 13:57:15 07/13/19 25 07/12/2024 urina lysis panel , auto Unknown Analyte 5.0 - 8.0 Not Available [facility] [address] [facility] [address], [place], [address], 07/12/2024 13:57:15 07/13/19 25 07/12/2024 urina lysis panel , auto Unknown Analyte 25 Elvia/uL Not Available [facility] [address], [place], [address], 07/12/2024 13:57:15 07/13/19 25 07/12/2024 urina lysis panel , auto Unknown Analyte Negati ve Not Available [facility] [address] [facility] [address], [place], [address], 07/12/2024 13:57:15 07/13/19 25 07/12/2024 urina lysis panel , auto Unknown Analyte POSITI VE (Abnor mal) Not Available [facility] [address] [place] [address] [address], [place], [address], 07/12/2024 13:57:15 07/13/19 25 07/12/2024 urina lysis panel , auto Unknown Analyte Negati ve Not Available [facility] [address], [place], [address], 07/12/2024 13:57:15 07/13/19 25 07/12/2024 urina lysis panel , auto Unknown Analyte 30 mg/dL Not Available [facility] [address], [place], [address], 07/12/2024 13:57:15 07/13/19 25 07/12/2024 urina lysis panel , auto Unknown Analyte Negati ve Not Available [facility] [address], [place], [address], 07/12/2024 13:57:15 07/13/19 25 07/12/2024 urina lysis panel , auto Unknown Analyte Normal Not Available [facility] [address], [place], [address], 07/12/2024 13:57:15 07/13/19 25 07/12/2024 urina lysis panel , auto Unknown Analyte Normal Not Available [facility] [address], [place], [address], 07/12/2024 13:57:15 07/13/19 25 07/12/2024 urina lysis panel , auto Unknown Analyte Negati ve Not Available [facility] [address], [place], [address], 07/12/2024 13:57:15 07/13/19 25 07/12/2024 urina lysis panel , auto Unknown Analyte Negati ve Not Available [facility] [address], [place], [address], 07/12/2024 13:57:15 07/13/19 25 07/12/2024 urina lysis panel , auto Unknown Analyte 4 mg/dL Not Available [facility] [address] [place] [address] [address], [place], [address], 07/12/2024 13:57:15 07/13/19 25 07/12/2024 urina lysis panel , auto Unknown Analyte Normal Not Available [facility] [address], [place], [address], 07/12/2024 13:57:15 07/13/19 25 07/12/2024 urina lysis panel , auto Unknown Analyte 1 mg/dL Not Available [facility] [address], [place], [address], 07/12/2024 13:57:15 07/13/19 25 07/12/2024 urina lysis panel , auto Unknown Analyte Negati ve Not Available [facility] [address], [place], [address], 07/12/2024 13:57:15 07/13/19 25 07/12/2024 urina lysis panel , auto Unknown Analyte 50 Sera/uL Not Available [facility] [address], [place], [address], 07/12/2024 13:57:15 07/13/19 25 07/12/2024 urina lysis panel , auto Unknown Analyte Negati ve Not Available [facility] [address], [place], [address], 07/12/2024 13:57:15 07/13/19 25 07/12/2024 XR, abdom en, 1 view No observ ation record ed. Not Available 06/17 20:13:39 07/13/19 07/12/2024 CT, abdom en + pelvi s, w/o contr ast Radha santoro [facility] [address] [facility] [place] [address] Patien t Name: TAY THOMAS Patien t : 954 Patien t Orderi ng Provid er: DEVIN Crum EXAM DATE: 2024 EXAM: CT ABD/PE LVIS WITHOU T CONTRA ST CLINIC AL INFORM ATION: Pain TECHNI QUE: Multip le axial CT images of the abdome n and pelvis were obtain ed withou t inject ion of IV contra st. No oral contra st or water was admini stered to the patien t. COMPAR LITZY: None. FINDIN GS ON CT ABDOME N: LOWER THORAX : Lung bases are clear. No obviou s cardia c abnorm ality. UPPER ABDOMI NAL ORGANS : Diffus e fatty metamo rphosi s of the liver. The gallbl adder is absent . The adrena ls, spleen , and pancre as have unrema rkable unenha nced CT appear ance. Multip le puncta te nonobs tructi ve left renal stones are noted. There are also puncta te stones involv ing the right kidney and there is dilata tion of the right renal collec ting system with blunti ng of the calyce al fornic es. This relate s to a cluste r of stones in the distal right ureter BOWEL AND MESENT SERA: Stomac h, small bowel and colon are normal . No mesent raisa lympha denopa thy or perito matthieu free fluid. Elemen ts unrema rkable RETROP ERITON EUM: Aorta, IVC and their branch es are patent and normal . No retrop eriton eal lympha denopa thy. ABDOMI NAL WALL AND SKELET AL STRUCT URES: Normal . FINDIN GS ON CT PELVIS : PELVIC CAVITY : Urinar y bladde r and rectos igmoid are normal . No pelvic or inguin al lympha denopa thy, mass or fluid. MUSCUL OSKELE LIBERTY STRUCT URES: Normal . COMBIN ED IMPRES OSBALDO: Bilate ral renal stones . Stone cluste r in the distal right ureter produc es mild to modera te obstru ctive uropat hy on the right Interp reted By: Ward Trejo MD Electr onical ly Signed By: Ward Trejo MD on 2:[address] [facility] [address] [place] [address], [address], 07/13/2024 18:43:42 Result Notes Documentation Provider Name and Address Organization Details Recorded Time Ct, Abdomen + Pelvis, W/o Contrast : [facility] [address] [place] [address] Patient Name: TAY THOMAS Patient : [id number] Patient Ordering Provider: DEVIN PUENTE EXAM DATE: 07/12/2024 EXAM: CT ABD/PELVIS WITHOUT CONTRAST CLINICAL INFORMATION: Pain TECHNIQUE: Multiple axial CT images of the abdomen and pelvis were obtained without injection of IV contrast. No oral contrast or water was administered to the patient. COMPARISON: None. FINDINGS ON CT ABDOMEN: LOWER THORAX: Lung bases are clear. No obvious cardiac abnormality. UPPER ABDOMINAL ORGANS: Diffuse fatty metamorphosis of the liver. The gallbladder is absent. The adrenals, spleen, and pancreas have unremarkable unenhanced CT appearance. Multiple punctate nonobstructive left renal stones are noted. There are also punctate stones involving the right kidney and there is dilatation of the right renal collecting system with blunting of the calyceal fornices. This relates to a cluster of stones in the distal right ureter BOWEL AND MESENTERY: Stomach, small bowel and colon are normal. No mesenteric lymphadenopathy or peritoneal free fluid. Elements unremarkable RETROPERITONEUM: Aorta, IVC and their branches are patent and normal. No retroperitoneal lymphadenopathy. ABDOMINAL WALL AND SKELETAL STRUCTURES: Normal. FINDINGS ON CT PELVIS: PELVIC CAVITY: Urinary bladder and rectosigmoid are normal. No pelvic or inguinal lymphadenopathy, mass or fluid. MUSCULOSKELETAL STRUCTURES: Normal. COMBINED IMPRESSION: Bilateral renal stones. Stone cluster in the distal right ureter produces mild to moderate obstructive uropathy on the right Interpreted By: Ward Trejo MD LEPE MD [address] [place] [address], [address], [facility] 07/13/2024 18:43:42 Problems No Known Problems Procedures Surgical History Date Name Laterality Status Provider Name and Address Organization Details Recorded Time 07/13/19 Post Void Residual; Ultrasound completed Joy Lama [facility] 07/12/2024 13:54:08 04/11/19 25 Biopsy Skin Lesion; Tangential completed Holland Candelaria [facility] 04/11/2024 14:41:10 04/11/19 25 Injection, Intralesional completed DUGLAS BASURTO MD [address] [place], [address], [facility] 04/11/2024 18:30:27 04/11/19 25 Destruction Premalignant Lesion(s) completed Holland Richardsdaysi [facility] 04/11/2024 14:44:27 01/29/20 23 Lumbar Epidural Steroid Injection - Parth completed PERI CANTOR MD [address] [place], [address], [facility] 01/28/2023 14:14:59 09/10/19 23 Cervical MBB 2 level - Parth completed PERI CANTOR MD [address] [place], [address], [facility] 09/09/2022 16:11:18 08/16/19 23 Cervical MBB 2 level - Parth completed PERI CANTOR MD [address] [place], [address], [facility] 08/15/2022 15:23:46 05/04/19 23 Back Surgery completed Alana Streeter [facility] 07/16/2022 08:57:41 04/30/19 18 Shave Lesion; trunk, arm, leg completed MARIA DEL ROSARIO ODOM MD [address] [place], [address], [facility] 04/30/2017 22:32:02 04/30/19 18 Destruction BN Lesions completed Aylin Toussaint [facility] 04/29/2017 08:43:13 Orthopedic Surgery completed Balta Pérez [facility] 11/03/2016 13:55:36 Imaging Results None recorded. Procedure Notes None recorded. Medical Equipment None Reported. Allergies Allergen ID Allergen Name Allergen Category Reaction Reaction Severity Criticality Documentation Date Start Date Code Code System Note Provider Name and Address Organization Details Recorded Time 917183 lisinopri l medicatio n facial swelling Not available Not available 07/16/2022 27527 RxNorm Alana Streeter [facility] 3 08:45:16 Medications Name Sig Start Date Stop Date Status Note LastModified by Organization Details LastModified Time Prescript ion - Renewal active Not Available Not Available Not Available Multiple Vitamin capsule Daily 11/03 completed Duration [...] Not Available Not Available No t Available ceftriaxo ne 1 gram solution for injection Take 1 g by injectio n route for 1 day. 2024 active Not Available Not Available Not Avai lable tamsulosi n 0.4 mg capsule Take 1 capsule every day by oral route. 2024 active Not Available Not Available Not Avai lable hydrocodo ne 7.5 mg-acetam inophen 325 mg [...] 0 Not Available Not Available Not Available Flomax active Not Available Not Availa ble Not Available Synthroid 01/28 completed Not Available Not Available Not Available Vitals Date Recorded Body height Body mass index (BMI) Body weight Provider Name and Address Organization Details Last Updated DateTime 07/12/2024 185.42 cm 29 kg/m2 96783.32 g Joy Lama [facility] 07/12/2024 13:49:16 Social History Question Answer Notes LastModified by [employer] Details LastModified Time Tobacco Smoking Status Current Some Day [facility] 13:55:22 How Much Tobacco Do You Chew? None [email or web address] Information not available 07/30/2020 Marital Status Informatio n not available 07/30/2020 What Was The Date Of Your Most Recent Tobacco Screening? 07/26/2024 Information not available 07/26/2024 How Much Tobacco Do You Smoke? No [email or web address] Information not available 07/16/2022 Sex: Male Functional Status Question Answer Note LastModified by [employer] Details LastModified Time Do you or have you ever used any other forms of tobacco or nicotine? No [email or web address] Information not available 07/16/2022 What is your level of alcohol consumption? Occasional [email or web address] Information not available 07/30/2020 Are you currently employed? No [email or web address] Information not available 07/16/2022 Do you or have you ever used e-cigarettes or vape? Never used electronic cigarettes Information not available 07/30/2020 What is your exercise level? Heavy [email or web address] Information not available 07/16/2022 Mental Status None recorded. Family History Relationship Description Onset Age of this Age Resolved Age Notes LastModified by Organization Details LastModified Time Father Heart disease [email or web address] Not available 07/16 08:46:24 Brother Heart disease [email or web address] Not available 07/16 08:46:24 Paternal Grandfather Heart disease [email or web address] Not available 07/16 08:46:35 Medical History Condition Response Other N Anxiety/Depression N Gout N Thyroid Disease N Kidney [...] N Immune System Disorder N Heart Attack ([place]) Y Other Skin Condition N Mental Illness [...] SNOMED-CT Code Diagnosis ICD10 Code Diagnosis Note [id number] DEVIN PUENTE PA-C [facility] [address] [place] [address] 07/12/2024 13:17:09 07/12/2024 14:30:00 Urolithiasis 21252942 N20.9 History of Disorder 3128 68277 Z87.898 Recurrent urinary tract infection 535574938 N39.0 Recurrent kidney stone 9383060969 010191 N20.0 Chill 60233939 R68.83 Flank pain 814602516 R10 .9 Z87.442 Kidney stone 76292649 N2 0.0 Acute urin ermelinda tract infection 003566279 N39.0 Health Concerns Section Related Observation LastModified by Organization Detai ls LastModified Time None Recorded Concern Status LastModified by Organization Details LastModified Time None Recorded Payers Encounter Date Sequence Insurance Name Policy Number Policy Huang Covered Member ID Huang Member ID Guarantor Name 07/12/2024 1 [place]IC[place] Tay Herrmann Marcellus [id number] Tay Herrmann Marcellus 07/12/2024 2 [employer] (MEDICARE SUPPLEMENT) Tay Herrmann Marcellus [id number] Tay Montez Marcellus Notes Date Note Type Note Provider Name and Address Organization Details Recorded Time 07/12/2024 text/html The patient is a 68-year-old male presenting with concerns related to kidney stones and urinary tract symptoms. He is status post cystoscopy with right ureteral stone manipulation and ureteral stent placement with right-sided shock wave lithotripsy of ureteral stone by Dr. Lepe 06/09/24. He unfortunately later developed bacteremia and has recently finished a 10 infusion regimen of IV antibiotics through a PICC line. He endorses experiencing dysuria, urinary frequency/urgency, and chills. Despite adherence to dietary changes and increased hydration, he continues to produce large stones requiring intervention.KUB today suggests right ureteric stone(s), formal radiologist reading pending. DEVIN PUENTE PA-C [address] [place], [address], [facility] 07/12/2024 20:02:52
--- OUTSIDE RECORDS SUMMARY | 2024-08-08 10:53 | XMS_ITS | Encounter Summary ---
Author Organization [employer] Address [address] [place] [address] Care Team Providers Care Export Agent Name Role Phone Emily Estrada Primary Care Provider Unavail able [facility], Provider Not In The System Primary Care Provider Unavailable Encounter Details Date Type Department Care Team (Late st Contact Info) Description 12/28/2018 Transcribed Document [facility] [place] Family Medicine [address] [place] [address] ProviderJodie MD [address] [place] [address] Social History Tobacco Use Types Packs/Day Years Used Date Smoking Tobacco: Never Assessed Sex and Gender Information Value Date Recorded Sex Assigned at Not on file Legal Sex Male 4:10 PM CDT Gender Identity Not on file Sexual Orientation Straight 05/21/2022 1: 57 PM CDT documented as of this encounter Miscellaneous Notes * Cerner Conversion Note - Historical ProviderMD - 12/28/2018 11:23 AM HAM CLERK Patient: TAY THOMAS Age: 63 Years Sex: Male : 1955 Admit Date 12/28/2018 08:06 Discharge Date 12/28/18 Primary Care Provider DESIREE LEE [facility] Discharge Diagnosis Acute left sided hydronephrosis and hydroureter secondary to a 4 mm distal left ureteral stone -pain control -IVF -flomax -passed stone -urology consult, discussed w Dr. Suárez -no need for abx therapy Hypothyroidism -continue levothyroxine Gout/Uric acid stones -continue allopurinol Anemia -felt dilutional -monitor [1] Studies Radiology Results (Last 48 hours) [id number] -- 12/28/2018 08:06 CT Abdomen Pelvis WO (12/28/2018 06:06) Result: CT SCAN OF ABDOMEN AND PELVIS WITHOUT CONTRASTHISTORY: Lower abdominal painPROCEDURE: Axial images were obtained from the lung bases to the pubicsymphysis by computed tomography.FINDINGS: ABDOMEN: The lung bases are clear. The heart size is normal. The limitednoncontrast images of the liver demonstrates fatty infiltration.Cholecystectomy clips are present. The spleen is normal. No adrenalmasses are seen. The aorta is normal in caliber. There is nosignificant free fluid or adenopathy. There are 2 nonobstructing rightrenal stones measuring up to 3 mm. There are 2 nonobstructing left renalstones measuring up to 2 mm. There is exophytic left renal lesion thatis likely a cyst. There is mild left-sided hydronephrosis andhydroureter.PELVIS: The appendix is normal. There is sigmoid diverticulosis. Theurinary bladder wall is thickened likely due to intussusception. Thereis a 4 mm distal left ureteral stone. There is no significant fluid oradenopathy.IMPRESSION: Mild left-sided hydronephrosis and hydroureter secondary toa 4 mm distal left ureteral stone.Bilateral nonobstructing renal stones.Images reviewed, interpreted, and dictated by Dr. Brigette Sheikh.Transcribed by Ministerio Carnes PA-C.I have personally viewed, interpreted and dictated the examination. Ihave read and agree with the above final transcribed report. Reason for Hospitalization 63yo male with hx of gout, uric [...] began on Thursday morning. He went to [facility] on Thursday and was diagnosed with a 4.6 cm renal stone and given pain medicine and follow up with Dr. Lepe his primary urologist on Thursday. Patient states that overnight his pain intensified, he had a low-grade temperature (he did not use a thermometer), he began to have nausea with vomiting and thus presented to [facility]. In the ER he was found [...] except for feeling sleepy from IV pain medicine [2] Patient passed stone, felt markedly improved, seen by urology and ok to [place]. Has fu with Dr. Lepe. Pt has pain and nausea meds at home, not felt to need abx therapy. Vital Signs T: 36.7 ??C HR: 62(Peripheral) [...] rashes]. Psychiatric: [Cooperative, appropriate mood and affect]. [3] Discharge Disposition Home Discharge Follow Up VLAD LEPE MD-[facility] - 00:00 AM Follow up with primary care provider - Within 5 to 7 days Discharge Medications (9) Active allopurinol 300 mg oral [...] vitamin E 400 Int Units, Oral, Daily Code Status Start: 12/28/18 11:05:00 EST, Full Code, Continuous Order Condition on Discharge improved stable Consulting Physicians ANABELLA CRAMER MD-ARIEL BEAR MD Time Spent on Discharge [address] Suárez [1] Admission H & P; RADU LARA PA-C 12/28/2018 11:11 EST [2] Admission H & P; RADU LARA PA-C 12/28/2018 11:11 EST [3] Admission H & P; RADU LARA PA-C 12/28/2018 11:11 EST Electronically signed by Jane [facility] Conversion Communication Analyst Cerner at 06/03/2022 10:28 PM CDT documented in this encounter Plan of Treatment Not on file documented as of this encounter Visit Diagnoses Not on filedocumented in this encounter Care Teams Export Agent Relationship Specialty Start Date End Date Emily Estrada [address] [place] [id number] PCP - General 05/14/22 06/09/24 [facility], Provider Not In The System, [place] [address] PCP - General 07/18/24 Lolita Belcher [facility] [address], [address] [place] [id number] Advanced Registered Nurse Practitioner Primary Care 06/10/24 documented as of this encounter
--- OUTSIDE RECORDS SUMMARY | 2024-08-08 10:53 | XMS_ITS | Encounter Summary ---
Author Organization [employer] Address [address] [place] [address] Care Team Providers Care Marketing Trainee Name Role Phone Emily Estrada Primary Care Provider Unavail able [facility], Provider Not In The System Primary Care Provider Unavailable Encounter Details Date Type Department Care Team (Late st Contact Info) Description 12/28/2018 Transcribed Document [facility] [place] [address] [place], [place] [id number] ProviderJodie MD [address] [place] [address] Social History Tobacco Use Types Packs/Day Years Used Date Smoking Tobacco: Never Assessed Sex and Gender Information Value Date Recorded Sex Assigned at Not on file Legal Sex Male 4:10 PM CDT Gender Identity Not on file Sexual Orientation Straight 05/21/2022 1: 57 PM CDT documented as of this encounter Miscellaneous Notes * Cerner Conversion Note - Historical ProviderMD - 12/28/2018 10:56 AM GARMENT FITTER Patient: TAY THOMAS Age: 63 Years Sex: Male : 1955 Chief Complaint c/o lower back pain radiating around to lower abd; Pt dx w/ rt kidney stone on Thursday at [facility] [place] 4.[address] scan; appt to see Dr. Young on Thursday Reason for Consultation Left flank pain, nephrolithiasis History of Present Illness Tay Thomas is a 63yoM whom urology was consulted for left flank pain. He was seen at an OSH thursday and diagnosed witha kidney stone. His pain continued and presented this morning to [facility] for further evaluation. CT showed a 5mm left uvj calculus. His symptoms were poorly controlled and he was admitted for symptom control. He has seen Dr Young in the past for management of his nephrolithiasis and is due to see Dr Young on 12/31/18. Urology was consulted for assistance. Of note, prior to Urology could see the patient he passed his stone while an inpatient. No fevers/chills at this time. Pain now gone. No LUTS. Otherwise well. Had an episode of gout last week which he states normally precedes his stone events. Review of Systems -Chest Pain -SOA -N/V -Dysuria -Weakened Urinary Stream -Hematuria Vital Signs T: 36.7 ??C HR: 62(Peripheral) RR: 18 BP: 125/77 SpO2: 97% HT: 185.42 cm WT: 116.62 kg BMI: 33.9 Oxygen Settings (Last) Oxygen Therapy Mode: Room air (12/28/18 05:18:00) Physical Exam General: Well appearing in NAD Neurologic: Grossly intact Pulmonary: Nonlabored breathing on RA Cardiovascular: Well perfused, skin pink and warm GI: Soft, ND, NT Assessment/Plan Mr. Thomas is a 63yoM who presents with renal colic due to a distal left UVJ stone which he subsequently passed. He is now symptom free and stable. No further urology intervention at this time. - Ok to Dc home - FU 01/07/[address] Young for symptom check. Flank pain Genitourinary Left ureteral stone VTE Prophylaxis - Medical No VTE Prophylaxis Orders. Provider Information Primary Care Physician - DESIREE LEE MD-[facility] Attending Physician - IMER PIZARRO MD-[facility] Admitting Physician - IMER PIZARRO MD-INT Consulting Physician - ANABELLA CRAMER MD-[facility] Consulting Physician - ARIEL ROSEN MD Referring Physician - VLAD TAYLOR MD-[facility] Problem List/Past Medical History Ongoing Gout High cholesterol Hypertension Kidney stone SD (myocardial infarction) S/P cholecystectomy Thyroid nodule Torn meniscus Historical No qualifying data Procedure/Surgical History Thyroidectomy (2010), Cyst removal from right ankle, Lithotripsy, Right rotator cuff repair. Medications Inpatient morphine, 4 mg= 1 mL, IV Push, Q3H, PRN Normal Saline Flush, 10 mL, IV Push, See Comment, PRN Percocet 5/325 oral tablet, 1 Tab, Oral, Q4H, PRN Sodium Chloride 0.9% intravenous solution 1,000 mL, 1000 mL, IntraVENous Home allopurinol 300 mg oral tablet, 300 mg= 1 Tab, Oral, Daily aspirin, 81 mg, Oral, Daily atorvastatin 10 mg oral tablet, Oral, Daily Centrum, 1 Tab, Oral, Daily Fish Oil 500 mg oral capsule, 500 mg= 1 Cap, Oral, Daily lisinopril, 20 mg, Oral, Daily Percocet 10/325 oral tablet, 1 Tab, Oral, Q6H, PRN Synthroid, 75 mcg, Oral, Daily vitamin E, 400 Int Units, Oral, Daily Allergies No [...] Cigars. Years of Use: 10. Family History No Hx malignancies Lab Results Test Name Test Result Date/Time [...] # 0.84 x10(3)/uL (Low) 12/28/2018 05:37 EST [place] % 7.6 % 12/28/2018 05:37 EST [place] # 0.77 K/uL 12/28/2018 05:37 EST Eos [...] Appearance CLEAR2 12/28/2018 05:45 EST Urine Specific [place] 1.023 12/28/2018 05:45 EST Urine pH Dipstick [...] Ur Yeast, Budding Trace 12/28/2018 05:45 EST Electronically signed by Jane, [facility] Conversion Manager Sharepoint Cerner at 06/03/2022 10:53 PM CDT documented in this encounter Plan of Treatment Not on file documented as of this encounter Visit Diagnoses Not on filedocumented in this encounter Care Teams Marketing Trainee Relationship Specialty Start Date End Date Emily Estrada [address] [place] [phone] PCP - General 05/14/22 06/09/24 [facility], Provider Not In The System, [place] [address] PCP - General 07/18/24 Lolita Belcher [facility] [place] [address], [address] [place] [address] Advanced Registered Nurse Practitioner Primary Care 06/10/24 documented as of this encounter
--- OUTSIDE RECORDS SUMMARY | 2024-08-08 10:53 | XMS_ITS | Encounter Summary ---
Author Organization [employer] Address [address] [place] [address] Care Team Providers Care Registered Public Health Nurse Name Role Phone Emily Estrada Primary Care Provider Unavail able [facility], Provider Not In The System Primary Care Provider Unavailable Encounter Details Date Type Department Care Team (Late st Contact Info) Description 12/28/2018 Transcribed Document [facility] [place] [address] [place] [address] ProviderJodie MD [address] [place] [address] Social History Tobacco Use Types Packs/Day Years Used Date Smoking Tobacco: Never Assessed Sex and Gender Information Value Date Recorded Sex Assigned at Not on file Legal Sex Male 4:10 PM CDT Gender Identity Not on file Sexual Orientation Straight 05/21/2022 1: 57 PM CDT documented as of this encounter Miscellaneous Notes * Cerner Conversion Note - Historical ProviderMD - 12/28/2018 5:25 AM MATERIAL COMBINER Pain Assessment Entered On: 12/28/2018 7:08 EST Performed On: 12/28/2018 7:07 EST by Randa Braun RN Intervention Information: HYDROmorphone Performed by Khloe Fletcher RN on 12/28/2018 05:41:00 EST HYDROmorphone,1mg IV Push,Left Mid Forearm Pain Assessment Pain Scale Used : 0-10 Scale Randa Braun RN - 12/28/2018 7:07 EST Pain Scale Intensity : 3 Randa Braun RN - 12/28/2018 7:07 EST Image 4 - Images currently included in the form version of this document have not been included in the text rendition version of the form. documented in this encounter Plan of Treatment Not on file documented as of this encounter Visit Diagnoses Not on filedocumented in this encounter Care Teams Registered Public Health Nurse Relationship Specialty Start Date End Date Emily Estrada [address] [place] [phone] PCP - General 05/14/22 06/09/24 [facility], Provider Not In The System, [place] [address] PCP - General 07/18/24 Lolita Belcher [address], [address] [address] Advanced Registered Nurse Practitioner Primary Care 06/10/24 documented as of this encounter
--- OUTSIDE RECORDS SUMMARY | 2024-08-08 10:53 | XMS_ITS | Encounter Summary ---
Author Organization [email or web address] Address [address] [place] [address] Care Team Providers Care Insolvency Consultant Name Role Phone Emily Estrada Primary Care Provider Unavail able [facility], Provider Not In The System Primary Care Provider Unavailable Encounter Details Date Type Department Care Team (Late st Contact Info) Description 12/28/2018 Transcribed Document [facility] [place] Family Medicine [address] [place] [address] ProviderJodie MD [address] [place] [address] Social History Tobacco Use Types Packs/Day Years Used Date Smoking Tobacco: Never Assessed Sex and Gender Information Value Date Recorded Sex Assigned at Not on file Legal Sex Male 4:10 PM CDT Gender Identity Not on file Sexual Orientation Straight 05/21/2022 1: 57 PM CDT documented as of this encounter Miscellaneous Notes * Cerner Conversion Note - Historical ProviderMD - 12/28/2018 8:52 AM [facility] ED Discharge Entered On: 12/28/2018 8:52 EST Performed On: 12/28/2018 8:52 EST by CHAVO VALDES RN Discharge Process Patient Disposition : Admit/Observe Personal Belongings With Patient : Yes CHAVO VALDES RN - 12/28/2018 8:52 EST Admission, ED Nurse Report Accepted By : Report called to Leidy SALCEDO transported to [facility] Nurse Report Acceptance Time : 12/28/2018 8:52 EST `Nurse Report (Hand Off) : Called CHAVO VALDES RN - 12/28/2018 8:52 EST documented in this encounter Plan of Treatment Not on file documented as of this encounter Visit Diagnoses Not on filedocumented in this encounter Care Teams Insolvency Consultant Relationship Specialty Start Date End Date Emily Estrada [address] [place] [address] [place] [phone] PCP - General 05/14/22 06/09/24 [facility], Provider Not In The System, [place] [address] PCP - General 07/18/24 Lolita Belcher [facility] [address], [address] [place] [address] Advanced Registered Nurse Practitioner Primary Care 06/10/24 documented as of this encounter
--- OUTSIDE RECORDS SUMMARY | 2024-08-08 10:53 | XMS_ITS | Encounter Summary ---
Author Organization [employer] Address [address] [place] [address] Care Team Providers Care Log Buncher Name Role Phone Emily Estrada Primary Care Provider Unavail able [facility], Provider Not In The System Primary Care Provider Unavailable Encounter Details Date Type Department Care Team (Late st Contact Info) Description 12/28/2018 Transcribed Document [facility] [place] [address] [place], [place] [id number] ProviderJodie MD [address] [place] [address] Social History Tobacco Use Types Packs/Day Years Used Date Smoking Tobacco: Never Assessed Sex and Gender Information Value Date Recorded Sex Assigned at Not on file Legal Sex Male 4:10 PM CDT Gender Identity Not on file Sexual Orientation Straight 05/21/2022 1: 57 PM CDT documented as of this encounter Miscellaneous Notes * Cerner Conversion Note - Historical ProviderMD - 12/28/2018 5:26 AM LIFE COACH Patient: TAY THOMAS Age: 63 years Sex: Male : 1955 Associated Diagnoses: Left ureteral stone Author: VLAD TAYLOR MD-EMR Basic Information Additional information: Chief Complaint from Nursing Triage Note : Chief Complaint 12/28/2018 5:18 EST Chief Complaint c/o lower back pain radiating around to lower abd; Pt dx w/ rt kidney stone on Thursday at [facility], [place] [address] scan; appt to see Dr. Young on Thursday . History of Present Illness The patient is a 63-year-old white male. He is a history of kidney stones in the past. He presents today with a three-day history of kirk. flank pain with radiation down into the lower quadrants. It is associated with nausea and vomiting. He was seen at [facility] [place] 2 days ago and diagnosed to 4.6 mm right-sided kidney stone. He was prescribed Percocet and Flomax without relief. No trauma. He states relates a low-grade fever this morning but is unsure of the exact temperature measurement. His urologist is Dr. Young. Review of Systems Constitutional symptoms: Negative except as documented in HPI. Skin symptoms: Negative except as documented in HPI. Eye symptoms: Negative except as documented in HPI. ENMT symptoms: Negative except as documented in HPI. Respiratory symptoms: Negative except as documented in HPI. Cardiovascular symptoms: Negative except as documented in HPI. Gastrointestinal symptoms: Negative except as documented in HPI. Genitourinary symptoms: Negative except as documented in HPI. Musculoskeletal symptoms: Negative except as documented in HPI. Neurologic symptoms: Negative except as documented in HPI. Psychiatric symptoms: Negative except as documented in HPI. Endocrine symptoms: Negative except as documented in HPI. Hematologic/Lymphatic symptoms: Negative except as documented in HPI. Allergy/immunologic symptoms: Negative except as documented in HPI. Additional review of systems information: All other systems reviewed and otherwise negative, All systems reviewed as documented in chart. Health Status Allergies: Allergic Reactions (Selected) No Known Allergies. Medications: (Selected) Inpatient Medications Ordered Dilaudid: 1 mg, IV Push, 1-Time Normal Saline Flush: 10 mL, IV Push, See Comment, PRN: IV Use Sodium Chloride 0.9% intravenous solution 1,000 mL: 500 mL/Hr, IntraVENous Zofran: 8 mg, IV Push, 1-Time, PRN: Nausea/Vomiting Prescriptions Prescribed [place] 7.5 mg-325 mg oral tablet: 1 Tab, Oral, Q6H, PRN: as needed for pain, 20 Tab, 0 Refill(s) Pyridium 200 mg oral tablet: 1 Tab, Oral, TID, PRN: as needed for urinary discomfort, 15 Caplet, 0 Refill(s) allopurinol 300 mg oral tablet: 1 Tab, Oral, Daily, 90 Tab, 3 Refill(s) Documented Medications Documented Centrum: 1 Tab, Oral, Daily, 0 Refill(s) Fish Oil 500 mg oral capsule: 2 Cap, Oral, Daily, 0 Refill(s) Synthroid: 75 mcg, Oral, Daily, 0 Refill(s) aspirin: 81 mg, Oral, Daily, 0 Refill(s) lisinopril: 10 mg, Oral, Daily, 0 Refill(s) lovastatin: 10 mg, Oral, At Bedtime, 0 Refill(s) vitamin E: 400 Int Units, Oral, Daily, 0 Refill(s). Past Medical/ Family/ Social History Surgical history: Thyroidectomy in 2011 at 55 Years. Cyst removal from right ankle. Right rotator cuff repair. Lithotripsy.. Family history: No family history items have been selected or recorded.. Social history: Social & Psychosocial Habits Alcohol 12/11/2016 Days Per Week of Alcohol Use 2 Total Drinks Per Week 6 Date/Time of Last Drink Thursday night Alcohol Use in Last Twelve Months Yes Alcohol Use Frequency Weekly Substance Abuse 12/11/2016 Recreational Drug Use History No Recreational Drug Use Last 12 Months No Tobacco 12/11/2016 Smoking Status Current every day smoker Smoking Frequency Within Last 30 Days Cigars/pipes daily Tobacco Use Within Last Twelve Months Cigars Years of Tobacco Use 10 . Problem list: Active Problems (8) Gout High cholesterol Hypertension Kidney stone AR (myocardial infarction) S/P cholecystectomy Thyroid nodule Torn meniscus . Physical Examination Vital Signs Vital Signs/Vital Measures 12/28/2018 5:18 EST Blood Pressure Location Arm, right upper Blood Pressure Source Non-Invasive BP Device Systolic Blood Pressure 140 mmHg Diastolic Blood Pressure 77 mmHg Temperature Source Oral Temperature Mode Fahrenheit Temperature, Fahrenheit 98.1 Deg F Clinical Temperature, C 36.7 Deg C Peripheral Pulse Rate 71 bpm Respiratory Rate 18 Breaths/Min Oxygen Saturation 98 % Oxygen Therapy Mode Room air . Measurements 12/28/2018 5:18 EST Height Source Stated Height Entry Format [place] Height/Length, NEPALESE (ft) 6 ft Height/Length NEPALESE 1 Inch CLINICALHEIGHT 185.42 cm [place] Body Weight 78.88 kg Weight Source, ED Critical estimated dosing weight Weight Entry Format [place] Weight [place] lb 245 lb CLINICALWEIGHT 111.36 kg Body Surface Area (BSA) 2.35 m2 Body Mass Index 32.4 kg/m2 HI . Oxygen Saturation 12/28/2018 5:18 EST Oxygen Saturation 98 % . General: Alert, mild distress. Skin: Warm, dry, intact. Head: Normocephalic, atraumatic. Neck: Supple. Eye: Pupils are equal, round and reactive to light, extraocular movements are intact. Ears, nose, mouth and throat: Oral mucosa moist. Cardiovascular: Regular rate and rhythm, No murmur, Normal peripheral perfusion, trace pretibial edema.. Respiratory: Lungs are clear to auscultation, respirations are non-labored. Gastrointestinal: Soft, Nontender, Non distended, Normal bowel sounds. Back: mild right CVAT. Musculoskeletal: Normal ROM, normal strength. Neurological: Alert and oriented to person, place, time, and situation, No focal neurological deficit observed. Lymphatics: No lymphadenopathy. Psychiatric: Cooperative. Medical Decision Making Differential Diagnosis: Urinary tract infection, hydronephrosis. Documents reviewed: Emergency department nurses' notes. Results review: Lab results : Lab Results 12/28/2018 5:45 EST Urine Type U CleanCatch Urine Color Yellow Urine Appearance Clear Urine Specific [place] 1.023 Urine pH Dipstick 5.5 LOW Urine Leukocyte Esterase Negative Urine Nitrite Negative Urine Protein Dipstick Trace Urine Glucose Dipstick Negative Urine Ketones Dipstick Negative Urine Urobilinogen Dipstick 0.2 EU/dL Urine Bilirubin Dipstick Negative Urine Blood Dipstick Large Ur RBC 20-50 /HPF Ur WBC 0-2 /HPF Ur Bacteria 1+ Ur Mucous 2+ Ur Hyaline Casts 0-2 /LPF Ur Broad Hyaline Casts 0-2 /LPF Ur Yeast, Budding Trace 12/28/2018 5:37 EST Sodium Level 137 mmol/L Potassium Level 4.0 mmol/L Chloride Level 105 mmol/L Carbon Dioxide Level 27 mmol/L Anion Gap 9 Glucose Level 137 mg/dL HI Blood Urea Nitrogen 24 mg/dL HI Creatinine Level 1.10 mg/dL eGFR >60 mL/min/1.73m2 eGFR NonAfrican >60 mL/min/1.73m2 Bun/Creatinine 21.8 HI Calcium Level 8.4 mg/dL WBC 10.2 K/uL HI RBC 4.14 Million/uL LOW Hgb 13.0 g/dL LOW Hct 39.3 % LOW MCV 94.9 fL HI MCH 31.4 pg MCHC 33.1 Gram/dL Platelet Count 241 K/uL MPV 9.4 fL RDW 12.1 % Neut % 82.6 % HI Neut # 8.41 K/uL HI Lymph % 8.3 % LOW Lymph # 0.84 x10(3)/uL LOW [place] % 7.6 % [place] # 0.77 K/uL Eos % 0.2 % Eos # 0.02 x10(3)/uL Baso % 0.6 % Baso # 0.06 x10(3)/uL Slide Review No IG# 0.07 x10(3)/uL HI IG% 0.70 % HI . Radiology results: NAME: TAY THOMAS / SEX: 1955 / Male MRN / ACC#: [id number] / [id number] ORDERING PHYSICIAN: Ordering Provider, Update EXAM REQUESTED: [id number]--SS ABDOMEN & PELVIS W/O CONTRAST FACILITY: [facility] DATE: 12/28/2018 RADIOLOGIST NAME: Giles Suarez CLINICAL HISTORY: rlq pain radiating to lower back. hx of kidney stones FINDINGS: A 4 mm left ureterovesical junction (UVJ) calculus is seen. There is mild left hydronephrosis and hydroureter. The right renal collecting system, right ureter and bladder appear unremarkable. IMPRESSION: 4 mm left ureterovesical junction (UVJ) calculus contributing to mild changes of obstructive uropathy.. Reexamination/ Reevaluation Time: 12/28/2018 08:04:00 . Notes: On reevaluation, patient is still endorsing significant amount of pain. Urology was consulted. Patient will be admitted to observation.. Impression and Plan Diagnosis Left ureteral stone - Discharge, Emergency medicine, Medical Plan Condition: Guarded. Disposition: Admit Admit/Transfer/Discharge: Place in Observation (Order): Start: 12/28/2018 8:06 EST, Observation Reason: kidney stone, Unit type: Med-Surg, Admitting: IMER PIZARRO MD-INT, Attending: IMER PIZARRO MD-INT , Patient care transitioned to: Time: 12/28/2018 07:07:00, BRYCE KELLY MD. Counseled: Patient, Family, Regarding diagnosis, Regarding diagnostic results, Regarding treatment plan, Regarding prescription, Patient indicated understanding of instructions. documented in this encounter Plan of Treatment Not on file documented as of this encounter Visit Diagnoses Not on filedocumented in this encounter Care Teams Log Buncher Relationship Specialty Start Date End Date Emily Estrada [address] [phone] PCP - General 05/14/22 06/09/[address] [facility], Provider Not In The System, [place] [address] PCP - General 07/18/24 Lolita Belcher [address], [address] [place] [address] Advanced Registered Nurse Practitioner Primary Care 06/10/24 documented as of this encounter
--- OUTSIDE RECORDS SUMMARY | 2024-08-08 10:53 | XMS_ITS | Encounter Summary ---
Author Organization [employer] Address [address] [place] [address] Care Team Providers Care Social Economist Name Role Phone Emily Estrada Primary Care Provider Unavail able [facility], Provider Not In The System Primary Care Provider Unavailable Encounter Details Date Type Department Care Team (Late st Contact Info) Description 06/19/2021 Transcribed Document [facility] Radiology [address] [place] [address] Juhi Garcia MD [address] [place] [address] [place] [address] Social History Tobacco Use Types Packs/Day Years Used Date Smoking Tobacco: Never Assessed Sex and Gender Information Value Date Recorded Sex Assigned at Not on file Legal Sex Male 4:10 PM CDT Gender Identity Not on file Sexual Orientation Straight 05/21/2022 1: 57 PM CDT documented as of this encounter Miscellaneous Notes * Cerner Conversion Note - Juhi Garcia MD - 06/19/2021 5:45 PM EDT Patient: TAY THOMAS Age: 65 Years Sex: Male : 1955 Admit Date 06/18/2021 11:35 Discharge Date 06/19/2021 15:59 Primary Care Provider DESIREE LEE [facility] Discharge Diagnosis Renal colic intrarenal stones bilaterally w/o hydro CAD HTN Hx thyroid cancer s/p partial removal Osteoarthritis Fatty liver Studies Radiology Results (Last 48 hours) [id number] -- 06/18/2021 11:35 CT Abdomen Pelvis WO (06/18/2021 09:49) Result: CT SCAN OF THE ABDOMEN AND PELVIS WITHOUT CONTRAST 06/18/2021 8:44 AM HISTORY: Right flank pain.COMPARISON: December 28, 2018PROCEDURE: Axial images were obtained from the lung bases to the pubicsymphysis by computed tomography. This study was performed withtechniques to keep radiation doses as low as reasonably achievable,(ALARA). Individualized dose reduction techniques using automatedexposure control or adjustment of mA and/or kV according to the patientsize were employed.FINDINGS: ABDOMEN: The lung bases are clear. The heart size is normal. The limitednoncontrast images of the liver demonstrate fatty infiltration. Thereare multiple right upper quadrant surgical clips consistent withcholecystectomy. The spleen is normal. No adrenal masses are seen. Theaorta is normal in caliber. There is no significant free fluid oradenopathy. There are bilateral nonobstructing renal stones measuring upto 3 mm. There is no hydronephrosis.PELVIS: The appendix is unremarkable. There is scattered diverticulardisease of the descending and sigmoid colon. The urinary bladder isunremarkable. There is no significant fluid or adenopathy.IMPRESSION: Fatty liver.Nonobstructing bilateral nephrolithiasis.Images reviewed, interpreted, and dictated by Dr. Alec Mauricio.Transcribed by José Miguel Fisher PA-C.I have personally viewed, interpreted and dictated the examination. Ihave read and agree with the above final transcribed report. CT Abdomen Pelvis W (06/18/2021 23:57) Result: CT ABDOMEN AND PELVIS WITH IV CONTRASTHISTORY: Renal stones on prior CT, right flank pain, follow-upTECHNIQUE: Thin-section axial images from the lung bases through thesymphysis pubis were performed with the administration of intravenouscontrast. This study was performed with techniques to keep radiationdoses as low as reasonably achievable, (ALARA). Individualized dosereduction techniques using automated exposure control or adjustment ofmA and/or kV according to the patient size were employed.COMPARISON: 14 hours priorFINDINGS:The lung bases are clear. There is a small hiatal hernia. There isdiffuse fatty infiltration of the liver. The gallbladder is surgicallyabsent. The spleen, adrenal glands, and pancreas are unremarkable. Thekidneys have symmetrical enhancement and excretion bilaterally. There isno hydronephrosis. There is a punctate stone in the lower pole of theright kidney. There are punctate stones in the left kidney. Thesemeasure up to 3.5 mm. There are no ureteral or bladder stones. There aremild aortoiliac vascular calcifications. The GI tract demonstrates noobstruction. The appendix is normal. There is moderate sigmoiddiverticulosis with no evidence of diverticulitis. There is moderatestool in the right transverse colon. There are advanced degenerativechanges of the lumbar spine and SI joints. There are degenerativechanges of the pubis and hips bilaterally.IMPRESSION:1. Fatty liver.2. Bilateral nonobstructing renal stones.3. Moderate stool in the right colon. There is moderate sigmoiddiverticulosis without evidence of diverticulitis.Images reviewed, interpreted, and dictated by Devon Walker MD Reason for Hospitalization Mr. Thomas is a 65 year old white male with hx of CAD, thyroid cancer, kidney stones requiring ureteral stents to pass and gout. He reports onset of intermittent bilateral flank pain a week ago and has worsened to the point it is intolerable at times. He was seen at an OSH yesterday and was discharged with pain meds. He states overnight he had a lot of pain and meds were not helping so he came to our ED today. CT reveals intrarenal stones w/o hydro, no ureteral stones. 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 Lepe who asked for Sound to admit and he will see him tonight, presumably to place ureteral stents. He has had no recent illness with fever, + nausea w/o vomiting with pain, no diarrhea or dysuria. He reports urine slow to come out. He was recently taken off flomax and his BB because he was having hypotension. Hospital Course Mr. Thomas was admitted for pain control and urology evaluation for stones w/in both kidneys. Dr. Lepe consulted and repeated CT scan with contrast to ensure full evaluation. Small intrarenal stones noted bilaterally w/o hydro or renal lesions/mass. He has not passed any stones during admission but his pain has resolved, I feel better than I have in four days . He is discharged to follow up with Dr. Lepe in the office. Fatty liver and constipation, diverticulosis also noted on contrasted CT scan, he is aware. I printed his liver enzymes for him to take to his PCP. Vital Signs T: 36.7 ??C TMIN: 36.7 ??C TMAX: 36.9 ??C HR: 64(Monitored) RR: 18 BP: 107/68 SpO2: 98% Oxygen Settings (Last) Oxygen Therapy Mode: Room air (06/19/21 06:30:00) Physical Exam General: alert, no acute distress, obese Head: atraumatic normocephalic Eyes: anicteric, normal conj PERRL EOMI Neck: supple Lungs: CTAB Heart: RRR no murmur no edema Abd: soft, nontender, present BS, no guarding/rebound : deferred MSK: full ROM where tested, no edema, calf tenderness or unilateral swelling LE Skin: no rash/jaundice Neuro: alert and oriented, CN 2-12 grossly normal, symmetrical extremity motor function, symmetrical facial movement, finger to nose intact. Psych: cooperative normal mood and affect [1] Discharge Disposition Home Discharge Follow Up Follow up with primary care provider - Within As needed VLAD LEPE - 04:15 PM Discharge Medications (13) Active acetaminophen-HYDROcodone 325 mg-5 mg oral tablet See Instructions, PRN allopurinol 300 mg oral tablet 300 mg = 1 Tab, Oral, Daily aspirin 81 mg oral delayed release tablet 81 mg = 1 Tab, Oral, Daily atorvastatin 10 mg oral tablet 10 mg = 1 Tab, Oral, At Bedtime Centrum 1 Tab, Oral, Daily ferrous sulfate 325 mg (65 mg elemental iron) oral delayed release tablet 325 mg = 1 Tab, Oral, Daily Fish Oil 500 mg oral capsule 500 mg = 1 Cap, Oral, Daily levothyroxine 75 mcg (0.075 mg) oral tablet 75 mcg = 1 Tab, Oral, Daily lisinopril 20 mg oral tablet 20 mg = 1 Tab, Oral, BID Nitrostat 0.4 mg sublingual tablet 0.4 mg = 1 Tab, PRN, SubLINgual, Q5Min promethazine 25 mg oral tablet 25 mg = 1 Tab, PRN, Oral, Q6H vitamin E 400 intl units oral capsule 400 Int Units = 1 Cap, Oral, Daily zinc sulfate 66 mg oral tablet 66 mg = 1 Tab, Oral, Daily Code Status Start: 06/18/21 13:31:00 EDT, Full Code, Continuous Order Condition on Discharge stable Consulting Physicians VLAD ZAMBRANO MD-URO VLAD LEPE MD-URO - kidney stones Current Diet Order Diet, Adult - Ordered -- Start: 06/18/21 18:06:00 EDT, Regular Diet, Isolation: Standard Precautions Patient Discharge Summary Orders Discharge Activity: Discharge Activity: Activity as tolerated Diet: Discharge Diet: Heart healthy diet Driving Restriction: No driving until 24 hours after taking pain medication Pending Labs No Labs on Record Time Spent on Discharge total time spent 25 minutes [1] Admission H & P; CHRISTIANNE MORTON PA-C 06/18/2021 13:34 EDT documented in this encounter Plan of Treatment Not on file documented as of this encounter Visit Diagnoses Not on filedocumented in this encounter Care Teams Social Economist Relationship Specialty Start Date End Date Emily Estrada [address] [place] [phone] PCP - General 05/14/22 06/09/24 [facility], Provider Not In The System, [place] [address] PCP - General 07/18/24 Lolita Belcher [address], [address] [place] [id number] Advanced Registered Nurse Practitioner Primary Care 06/10/24 documented as of this encounter
--- OUTSIDE RECORDS SUMMARY | 2024-08-08 10:53 | XMS_ITS | Encounter Summary ---
Author Organization [employer] Address [address] [place] [place] [address] Care Team Providers Care Goods Layer Name Role Phone Emily Estrada Primary Care Provider Unavail able [facility], Provider Not In The System Primary Care Provider Unavailable Encounter Details Date Type Department Care Team (Late st Contact Info) Description 12/28/2018 Transcribed Document [facility] [address] [place] [address] ProviderJodie MD [address] [place] [address] Social History Tobacco Use Types Packs/Day Years Used Date Smoking Tobacco: Never Assessed Sex and Gender Information Value Date Recorded Sex Assigned at Not on file Legal Sex Male 4:10 PM CDT Gender Identity Not on file Sexual Orientation Straight 05/21/2022 1: 57 PM CDT documented as of this encounter Miscellaneous Notes * Cerner Conversion Note - Jodie ProviderMD - 12/28/2018 11:48 AM SENIOR CONSULTING MANAGER [facility] [address] THOMASANGELBessie Herrmann :1955 Visit Time:12/28/2018 Your Visit Summary Your Care Team Admitting Physician - VLAD TAYLOR MD-EMR PHY, UNKNOWN IMER PIZARRO MD-INT Attending Physician - VLAD TAYLOR MD-IMER ARREDONDO MD-INT Primary Care Physician - DESIREE LEE MD-[facility] Referring Physician - VLAD TAYLOR MD-EMR Your Diagnosis Flank pain Genitourinary Left ureteral stone These Are Your Goals to get rid of the stones and pain. Discharge Vitals Temperature 36.7 ??C Respiratory Rate 18 Blood Pressure 125/77 What to do next Follow-Up Appointments Follow Up with VLAD LEPE MD-URO When 01/07/2019 12:00 AM EST Comments Call for follow up appointment Where: [facility] [address] [place] [id number]- Follow Up with Follow up with primary care provider When Within 5 to 7 days Medications What How Much When Instructions Next Dose allopurinol (allopurinol 300 mg oral tablet) 1 Tablet(s) Oral Every Day acetaminophen-oxyCODONE (Percocet 10/ 325 oral tablet) 1 Tablet(s) Oral Every 6 Hours as needed for for pain aspirin 81 Milligram(s) Oral Every Day atorvastatin (atorvastatin 10 mg oral tablet) Oral Every Day levothyroxine (Synthroid) 75 Microgram(s) Oral Every Day lisinopril 20 Milligram(s) Oral Every Day multivitamin with minerals (Centrum) 1 Tablet(s) Oral Every Day omega-3 polyunsaturated fatty acids (Fish Oil 500 mg oral capsule) 1 Capsule(s) Oral Every Day vitamin E 400 International Units Oral Every Day Take your medications faithfully. Do NOT skip [...] cramping, rapid heartbeat, difficulty sleeping, and nervousness. Please dispose of unused and medications per your retail pharmacy guidance. Allergies No Known Allergies Immunizations This Visit No Immunizations Found Education Materials Dietary Guidelines to Help Prevent Kidney Stones [...] calcium at each meal. Foods that contain 200???500 mg of calcium per serving include: ? 8 oz (237 ml) of milk, fortified nondairy milk, and fortified fruit juice. ? 8 oz (237 ml) of kefir, yogurt, and soy yogurt. ? 4 oz (118 ml) of tofu. ? 1 oz of cheese. ? 1 cup (300 g) of dried figs. ? 1 cup (91 g) of cooked broccoli. ? 1???3 oz can of sardines or mackerel. ??? [...] Rhubarb. ? Beets. ? Potato chips and georgian fries. ? Nuts. ??? If you regularly take a diuretic medicine, make sure to eat at least 1???2 fruits or vegetables high in potassium each day. These include: ? Avocado. ? Banana. ? Mono, prune, carrot, or tomato juice. ? Baked [...] of beer, 5 oz of wine, or 1?? oz of hard liquor. ??? Lose weight [...] Casseroles. Pizza. Lasagna. Frozen meals. Potato chips. Sinhala fries. Summary ??? You can reduce your [...] 05/30/2011 Document Revised: 01/13/2017 Document Reviewed: 01/13/2017 [employer] Patient Education ?? 2019 [employer] Dietary Guidelines to Help Prevent Kidney Stones [...] calcium at each meal. Foods that contain 200???500 mg of calcium per serving include: ? 8 oz (237 ml) of milk, fortified nondairy milk, and fortified fruit juice. ? 8 oz (237 ml) of kefir, yogurt, and soy yogurt. ? 4 oz (118 ml) of tofu. ? 1 oz of cheese. ? 1 cup (300 g) of dried figs. ? 1 cup (91 g) of cooked broccoli. ? 1???3 oz can of sardines or mackerel. ??? [...] Rhubarb. ? Beets. ? Potato chips and georgian fries. ? Nuts. ??? If you regularly take a diuretic medicine, make sure to eat at least 1???2 fruits or vegetables high in potassium each day. These include: ? Avocado. ? Banana. ? Mono, prune, carrot, or tomato juice. ? Baked [...] of beer, 5 oz of wine, or 1?? oz of hard liquor. ??? Lose weight [...] Casseroles. Pizza. Lasagna. Frozen meals. Potato chips. Sinhala fries. Summary ??? You can reduce your [...] 05/30/2011 Document Revised: 01/13/2017 Document Reviewed: 01/13/2017 [employer] Patient Education ?? 2019 [employer] Kidney Stones Kidney stones (urolithiasis) are [...] hours after you pass the stone. ? 8???12 weeks after passing the kidney stone, and every 6???12 months after that. ??? Strain your urine [...] kidney stones in the future. ??? Take [id number] and prescription medicines only as told by [...] 02/02/2006 Document Revised: 07/16/2017 Document Reviewed: 07/18/2016 [employer] Patient Education ?? 2019 [employer] Emergency Awareness and Preventative Care STROKE is an EMERGENCY Every Minute Counts Act FAST and Check for these signs: FACE Does the face look uneven? ARM Does one arm drift down? SPEECH Does their speech sound strange? TIME Call at any sign of stroke Stroke Risk Factors Atrial Fibrillation (irregular heartbeat) Diabetes Family history of stroke Heart Disease Heavy alcohol use High Blood Pressure High Cholesterol Physical inactivity and obesity Smoking Cigarette Smoking The facts are clear, cigarette smoking will shorten your life. Smoking can cause many illnesses along the way. As a healthcare provider, we recommend that you stop smoking. Assistance with quitting is available by contacting 0-907-OEQZNOW. This is a free resource providing counseling, support, and referral. Or you may contact your personal physician. National Suicide Prevention Lifeline: The National Suicide Prevention Lifeline is a national network of local crisis centers that provides free and confidential emotional support to people in suicidal crisis or emotional distress 24 hours a day, 7 days a week. Don't Wait! Stop a Heart Attack Before it Starts What is a heart attack? A heart attack is damage or to a part of the heart from severely decreased or lack of blood flow to the heart. Over time, arteries can become narrow from the buildup of fat and cholesterol, which is called plaque. The plaque can rupture causing a blood clot to form. When the blood clot forms, the artery can become severely narrowed or completely blocked, causing a heart attack. Heart attack is the leading cause of in the [place]. 85% of muscle damage occurs within the first 2 hours. Delay in the recognition of heart attack symptoms increases the chances of . Know the early symptoms of a heart attack: Nausea Feeling of fullness in chest Jaw Pain Pain that travels down one or both arms Fatigue/being tired Anxiety Back Pain Chest pressure, squeezing, or discomfort Shortness of breath Sweating, or a cold sweat Feeling of impending doom There are unusual signs of a heart attack, too! Women, the elderly, and diabetics may present with atypical symptoms: Fainting/dizziness Weakness Confusion Risk Factors for a Heart Attack Some heart disease risk factors, such as age and family history, cannot be changed. Others, like smoking and lack of exercise, can be changed. Smoking High Cholesterol High Blood Pressure Family History Obesity Age Gender (Males are at higher risk) Lack of Exercise Diabetes Diet Stress Excessive Alcohol Intake If you or someone you know is experiencing the signs and symptoms of a heart attack, DON???T DELAY. Call immediately and seek help. If someone collapses, perform CPR! Do not attempt to drive if you are having symptoms of heart attack. Hands-Only CPR Why Hands-Only CPR? Hands-Only CPR has been shown to be as effective as conventional CPR for cardiac arrests that occur outside of a hospital. Survival depends on immediately receiving CPR from someone nearby. How do you perform Hands-Only CPR? There are two easy steps: Call if you see a teen or adult collapse Push hard and fast in the center of the chest at a beat of 100 beats per minute. Save a life! 4 WAYS TO GET AHEAD OF SEPSIS SEPSIS is a MEDICAL EMERGENCY. Time matters! Infections put you and your family at risk for a life-threatening condition called sepsis. Sepsis is the body's extreme response to an infection. It is life-threatening, and without timely treatment, sepsis can rapidly lead to tissue damage, organ failure, and . Sepsis happens when an infection you already have-in your skin, lungs, urinary tract or somewhere else-triggers a chain reaction throughout your body. 1 [...] sepsis or if you have an infection that is not getting better or is getting worse. To learn more about sepsis and how to prevent infections, visit www.cdc.gov/sepsis. Test Results Laboratory or Other Results This Visit (last charted value for your 12/28/2018 visit) Hematology 12/28/2018 5:37 AM WBC: 10.2 K/uL -- Normal range between ( 3.6 and 9.5 ) RBC: 4.14 Million/uL -- Normal range between ( 4.20 and 5.70 ) Hct: 39.3 % -- Normal range between ( 40.1 and 51.0 ) Hgb: 13.0 g/dL -- Normal range between ( 13.5 and 17.3 ) Platelet Count: 241 K/uL -- Normal range between ( 163 and 369 ) MCH: 31.4 pg -- Normal range between ( 25.6 and 32.2 ) MCHC: 33.1 Gram/dL -- Normal range between ( 32.2 and 36.5 ) MCV: 94.9 fL -- Normal range between ( 79.0 and 94.8 ) Slide Review: No Eos %: 0.2 % -- Normal range between ( 0.0 and 7.0 ) Dupage #: 0.77 K/uL -- Normal range between ( 0.16 and 1.00 ) Eos #: 0.02 x10(3)/uL -- Normal range between ( 0.00 and 0.80 ) Dupage %: 7.6 % -- Normal range between ( 3.0 and 9.0 ) Baso %: 0.6 % -- Normal range between ( 0.0 and 1.5 ) Baso #: 0.06 x10(3)/uL -- Normal range between ( 0.00 and 0.20 ) RDW: 12.1 % -- Normal range between ( 11.7 and 14.9 ) Neut %: 82.6 % -- Normal range between ( 34.0 and 71.0 ) Neut #: 8.41 K/uL -- Normal range between ( 1.56 and 6.13 ) Lymph %: 8.3 % -- Normal range between ( 19.3 and 53.1 ) Lymph #: 0.84 x10(3)/uL -- Normal range between ( 1.00 and 3.90 ) MPV: 9.4 fL -- Normal range between ( 9.4 and 12.4 ) IG#: 0.07 x10(3)/uL -- Normal range between ( 0.00 and 0.05 ) IG%: 0.70 % -- Normal range between ( 0.00 and 0.60 ) Urinalysis 12/28/2018 5:45 AM Ur RBC: 20-50 /HPF Urine Nitrite: Negative Urine Leukocyte Esterase: Negative Urine Appearance: Clear Urine Glucose Dipstick: Negative Urine Blood Dipstick: Large Urine Type: U CleanCatch Urine Urobilinogen Dipstick: 0.2 EU/dL Urine Protein Dipstick: Trace Ur Bacteria: 1+ Ur Yeast, Budding: Trace Ur Broad Hyaline Casts: 0-2 /LPF Urine Color: Yellow Ur WBC: 0-2 /HPF Urine Ketones Dipstick: Negative Ur Mucous: 2+ Urine pH Dipstick: 5.5 -- Normal range between ( 6.0 and 8.0 ) Ur Hyaline Casts: 0-2 /LPF Urine Bilirubin Dipstick: Negative Urine Specific [place]: 1.023 -- Normal range between ( 1.005 and 1.030 ) General Chemistry 12/28/2018 5:37 AM Creatinine Level: 1.10 mg/dL -- Normal range between ( 0.70 and 1.30 ) Sodium Level: 137 mmol/L -- Normal range between ( 136 and 146 ) Potassium Level: 4.0 mmol/L -- Normal range between ( 3.5 and 5.1 ) Chloride Level: 105 mmol/L -- Normal range between ( 102 and 112 ) Carbon Dioxide Level: 27 mmol/L -- Normal range between ( 21 and 32 ) Anion Gap: 9 -- Normal range between ( 9 and 20 ) Bun/Creatinine: 21.8 -- Normal range between ( 8.0 and 20.0 ) Calcium Level: 8.4 mg/dL -- Normal range between ( 8.4 and 10.1 ) eGFR : >60 mL/min/1.73m2 eGFR NonAfrican: >60 mL/min/1.73m2 Glucose Level: 137 mg/dL -- Normal range between ( 74 and 106 ) Blood Urea Nitrogen: 24 mg/dL -- Normal range between ( 7 and 22 ) Computed Tomography 12/28/2018 6:[address] Abdomen Pelvis WO: CT Abdomen Pelvis WO Patient Name:TAY THOMAS I have received and understand this information and was given the opportunity to ask questions. Patient/Hard Metals Engraver Hand Name: Patient/Hard Metals Engraver Hand Signature: Relationship to Patient: Clinician/Hospital Hard Metals Engraver Hand Signature: Date: documented in this encounter Plan of Treatment Not on file documented as of this encounter Visit Diagnoses Not on filedocumented in this encounter Care Teams Goods Layer Relationship Specialty Start Date End Date Emily Estrada [address] [place] [address] PCP - General 05/14/22 06/09/24 [facility], Provider Not In The System, [place] [address] PCP - General 07/18/24 Lolita [place] [address] [place] [address] [facility], [address] [place] [id number] Advanced Registered Nurse Practitioner Primary Care 06/10/24 documented as of this encounter
--- OUTSIDE RECORDS SUMMARY | 2024-08-08 10:53 | XMS_ITS | Encounter Summary ---
Author Organization [employer] Address [address] [place] [address] Care Team Providers Care Wool Dyer Name Role Phone Emily Estrada Primary Care Provider Unavail able [facility], Provider Not In The System Primary Care Provider Unavailable Encounter Details Date Type Department Care Team (Late st Contact Info) Description 12/28/2018 Transcribed Document [facility] [place] Family Medicine [address] [place] [address] ProviderJodie MD [address] [place] [address] Social History Tobacco Use Types Packs/Day Years Used Date Smoking Tobacco: Never Assessed Sex and Gender Information Value Date Recorded Sex Assigned at Not on file Legal Sex Male 4:10 PM CDT Gender Identity Not on file Sexual Orientation Straight 05/21/2022 1: 57 PM CDT documented as of this encounter Miscellaneous Notes * Cerner Conversion Note - Historical ProviderMD - 12/28/2018 5:10 AM DATE P[facility] ED Assessment Entered On: 12/28/2018 5:34 EST Performed On: 12/28/2018 5:26 EST by CHAVO MENDOZA RN ED Quick Look Assessment Level of Consciousness : Alert, Awake Affect/Behavior : Appropriate, Cooperative, Irritable Orientation : Oriented x 4 Skin Temperature : Warm Skin Description : Normal for ethnicity CHAVO MENDOZA RN - 12/28/2018 5:26 EST ED General-Functional Assess Communication Barrier : None Primary Language : Welsh Any Spiritual/Cultural Needs or Requests : No Currently in Unsafe Situation : No CHAVO MENDOZA RN - 12/28/2018 5:26 EST Social Habits Smoking Status : Cigars or pipes daily within last 30 days (Comment: STATES OCCASIONALLY [CHAVO MENDOZA RN - 12/28/2018 5:26 EST] ) Smokeless Tobacco Status : Never Desires Tobacco Cessation Medication : No Reason for No Tobacco Cessation Medication : ED/procedural patient only Desires Tobacco Cessation Calc : 1 CHAVO MENDOZA RN - 12/28/2018 5:26 EST Social History (As Of: 12/28/2018 05:34:16 EST) Tobacco: Smoking Status Current every day smoker. Cigars/pipes daily Smoking Frequency Within Last 30 Days. Use in Last 12 Months: Cigars. Years of Use: 10. (Last Updated: 12/11/2016 01:10:46 EDT by Roseanna Humphrey RN) Alcohol: Days/Week: 2. Total Drinks/Week: 6. Date/Time of Last Drink: Thursday night. Use in Last 12 Months: Yes. Alcohol Use Frequency Weekly. (Last Updated: 12/11/2016 01:11:23 EDT by Roseanna Humphrey, RN) Substance Abuse: Drug Use Hx: No. Use in Last 12 Months: No. (Last Updated: 12/11/2016 01:11:26 EDT by Roseanna Humphrey RN) Gastrointestinal ED Gastrointestinal Assessment WDL : WDL with exceptions (Comment: PT REPORTS ABDOMINAL PAIN THAT STARTED AT 0200 C N/V. [CHAVO MENDOZA RN - 12/28/2018 5:26 EST] ) Gastrointestinal Symptoms : Abdominal pain, Nausea, Vomiting CHAVO MENDOZA RN - 12/28/2018 5:26 EST Genitourinary Assessment, ED Genitourinary Assessment WDL : WDL with exceptions (Comment: PT REPORTS BILATERAL FLANK PAIN THAT RADIATES TO ABDOMEN THAT STARTED @ 0200. PT STATES N/V ACCOMPANIED. PT REPORTS DX C KIDNEY STONE IN [place] ON THURSDAY. STATES 4.6CM STONE. STATES APT C DR. LEPE ON THURSDAY. PT TOOK PERCET AND FLOMAX C NO RELIEF. [CHAVO MENDOZA RN - 12/28/2018 5:26 EST] ) CHAVO MENDOZA RN - 12/28/2018 5:26 EST Musculoskeletal Musculoskeletal Assessment WDL : WDL with exceptions (Comment: PT REPORTS BILATERAL FLANK PAIN THAT RADIATES TO ABDOMEN THAT STARTED @ 0200. PT STATES N/V ACCOMPANIED. PT REPORTS DX C KIDNEY STONE IN [place] ON THURSDAY. STATES 4.6CM STONE. STATES APT C DR. LEPE ON THURSDAY. PT TOOK PERCET AND FLOMAX C NO RELIEF.PT DESCRIBES PAIN SHARP, STABBING AND INTERMITTANT IN DURATION. [CHAVO MENDOZA RN - 12/28/2018 5:26 EST] ) CHAVO MENDOZA RN - 12/28/2018 5:26 EST Electronically signed by Jane, [facility] Conversion Banking Manager Cerner at 06/03/2022 10:29 PM CDT documented in this encounter Plan of Treatment Not on file documented as of this encounter Visit Diagnoses Not on filedocumented in this encounter Care Teams Wool Dyer Relationship Specialty Start Date End Date MavisBarEmily ordonez [address] [place] [id number] PCP - General 05/14/22 06/09/24 [facility], Provider Not In The System, [place] [address] PCP - General 07/18/24 Lolita Belcher [facility] [place] [address], [address] [place] [address] Advanced Registered Nurse Practitioner Primary Care 06/10/24 documented as of this encounter
--- OUTSIDE RECORDS SUMMARY | 2024-08-08 10:53 | XMS_ITS | Encounter Summary ---
Author Organization [employer] Address [address] [place] [address] Care Team Providers Care Cafeteria Or Lunchroom Checker Name Role Phone Emily Estrada Primary Care Provider Unavail able [facility], Provider Not In The System Primary Care Provider Unavailable Encounter Details Date Type Department Care Team (Late st Contact Info) Description 12/28/2018 Transcribed Document [facility] [place] [address] [place] [address] ProviderJodie MD [address] [place] [address] Social History Tobacco Use Types Packs/Day Years Used Date Smoking Tobacco: Never Assessed Sex and Gender Information Value Date Recorded Sex Assigned at Not on file Legal Sex Male 4:10 PM CDT Gender Identity Not on file Sexual Orientation Straight 05/21/2022 1: 57 PM CDT documented as of this encounter Miscellaneous Notes * Cerner Conversion Note - Historical ProviderMD - 12/28/2018 8:37 AM [place] Admission History, Adult Entered On: 12/28/2018 9:38 EST Performed On: 12/28/2018 8:37 EST by BETTY HOPKINS RN Advance Directive Patient has Advance Directive *Q : Yes, Advance Directive not with the patient Advance Directive Type : Living will BETTY HOPKINS RN - 12/28/2018 9:24 EST Anesthesia/Transfusion History Family History of Anesthesia Reaction : No prior transfusion(s) Transfusion History : Prior anesthesia without reaction Family History of Anesthesia Reaction : None BETTY HOPKINS RN - 12/28/2018 9:24 EST Education Topics, Admission Orientation DCP GENERIC CODE Advance Directives : Verbalizes understanding Call Light : Verbalizes understanding Diet/Room Service : Verbalizes understanding Rounding : Verbalizes understanding Television/Phone : Verbalizes understanding BETTY HOPKINS RN - 12/28/2018 9:24 EST Functional Assessment Living Situation : Home Patient Lives With : Spouse ACEVES Hx Falls Immediate/Within 3 Months : No Current Home Treatments : None BETTY HOPKINS RN - 12/28/2018 9:24 EST General Info Mode of Arrival on Unit : Ambulatory Legal Guardian : Spouse Want Family/Rep/Phys Notified of Admit : No Emergency Contact #1 : Kelsie Germain Emergency Contact #1 Emergency Contact #1 Relationship : Emergency Contact #2 : na Emergency Contact #2 Phone Number : na Emergency Contact #2 Relationship : na Chief Complaint : c/o lower back pain radiating around to lower abd; Pt dx w/ rt kidney stone on Thursday at [facility] [address] scan; appt to see Dr. Young on Thursday Primary Language : Lithuanian Communication Barrier : None BETTY HOPKINS RN - 12/28/2018 9:24 EST Fall Risk Scales ABCs Fall Injury Risk Identification : None ACEVES Hx Falls Immediate/Within 3 Months : No Aceves Secondary Diagnosis : No ACEVES Use of Ambulatory Aid : None ACEVES IV Therapy or IV Access : Yes Aceves Gait/Transferring : Normal, bedrest, immobile Aceves Mental Status : Oriented to own ability Aceves Fall Risk Score : 20 ACEVES Fall Scale Risk Level : 0-24 Low Risk [place] Fall Interventions : Adequate lighting, Bed in low position, Call device within reach, Hourly comfort/safety rounds, Non-slip footwear, Personal items within reach, Room free of clutter/spills, Wheels locked, Wires/Cords secured BETTY HOPKINS RN - 12/28/2018 9:24 EST Health Histories Smoking Status : Cigars or pipes daily within last 30 days Smokeless Tobacco Status : Never Desires Tobacco Cessation Medication : No Reason for No Tobacco Cessation Medication : Refuses FDA approved medications BETTY HOPKINS RN - 12/28/2018 9:24 EST Social History (As Of: 12/28/2018 09:38:33 EST) Tobacco: Smoking Status Current every day smoker. Cigars/pipes daily Smoking Frequency Within Last 30 Days. Use in Last 12 Months: Cigars. Years of Use: 10. (Last Updated: 12/11/2016 01:10:46 EDT by Roseanna Humphrey RN) Alcohol: Days/Week: 2. Total Drinks/Week: 6. Date/Time of Last Drink: Tonny night. Use in Last 12 Months: Yes. Alcohol Use Frequency Weekly. (Last Updated: 12/11/2016 01:11:23 EDT by Roseanna Humphrey RN) Alcohol Use History Yes. Total Drinks/Week: 5. Use in Last 12 Months: Yes. (Last Updated: 12/28/2018 09:32:16 EST by BETTY HOPKINS RN) Substance Abuse: Drug Use Hx: No. Use in Last 12 Months: No. (Last Updated: 12/11/2016 01:11:26 EDT by Roseanna Humphrey RN) Height and Weight, Clinical Dosing Height Source : Stated Height Entry Format : [place] Height, Feet : 6 ft(Converted to: 183 cm, 72 Inch) Height, Inches : 1 Inch(Converted to: 0 ft 1 Inch, 2.54 cm) Clinical Height : 185.42 cm Weight Source : Standing scale Weight Entry Format : Palmer Clinical Dosing Weight : 116.62 kg Weight, Pounds : 256 lb Weight, Ounces : 9 oz Body Surface Area (BSA) : 2.39 m2 Body Mass Index : 33.9 kg/m2 (HI) [place] Body Weight : 79 kg BETTY HOPKINS RN - 12/28/2018 9:24 EST Infectious Disease History Infectious Disease History : Chicken pox/Shingles, Influenza, Measles, Mumps Fever/Chills Last 48 Hours : No Travel To Regions with Travel Advisories : No Travel Outside [place] Within Last 30 Days : No Contact With Traveler to Advisory Region : No Tuberculosis Symptoms : None BETTY HOPKINS RN - 12/28/2018 9:24 EST Influenza Vaccine Asmt, Adult Previous Vaccines from Immunization Schedule : No qualifying data available. Influenza Immunization, Current Season : No Inactivated Flu Vaccine Contraindications : No contraindications to inactivated influenza vaccine Transplant Workup/Recent Transplant : No Order for Influenza Vaccine : Declined Vaccination BETTY HOPKINS RN - 12/28/2018 9:24 EST Pneumococcal Vaccine Previous Vaccines from Immunization Schedule : No qualifying data available. Pneumonia Immunization Received : No Pneumococcal Risk Assessment < Age 65 : N/A- Patient 65 years of age or older Pneumococcal Vaccine Contraindications : No contraindications to pneumococcal vaccine Transplant Workup/Recent Transplant : No Order for Pneumococcal Vaccine : Declined Vaccination BETTY HOPKINS RN - 12/28/2018 9:24 EST Order Details Order Detail : N/A Room Service : Appropriate BETTY HOPKINS RN - 12/28/2018 9:24 EST Nutrition History Eating Poorly Due to Decreased Appetite : No Unplanned Weight Loss in Past 3-6 Months : No Malnutrition Screening Tool Total(mal) : 0 Malnutrition Screening Tool Risk Level : Patient not at risk BETTY HOPKINS RN - 12/28/2018 9:24 EST [place] Suicide Severity Rating Scale (C-SSRS) CSSRS Past Month Wish to be : No CSSRS Past Month Suicidal Thoughts : No CSSRS Lifetime Suicide Behavior : No Suicide Severity Rating Score : 0 Suicide Severity Rating : No Additional Care Required at this time BETTY HOPKINS RN - 12/28/2018 9:24 EST Psychosocial History Currently in Unsafe Situation : No BETTY HOPKINS RN - 12/28/2018 9:24 EST Sleep Apnea Risk Assmt Hx of Obstructive Sleep Apnea Diagnosis : No Snore Loudly : Yes Tired, Fatigued, or Sleepy During Day : No Observed Stopping Breathing During Sleep : No Have/Are Being Treated for Hypertension : Yes Age over 50 Years Old : Yes Gender Male : Yes BETTY HOPKINS RN - 12/28/2018 9:24 EST Spiritual/Cultural Needs Any Spiritual/Cultural Needs or Requests : No BETTY HOPKINS RN - 12/28/2018 9:24 EST Valuables and Belongings Valuables and Belongings : Clothing, Jewelry, Personal items, No personal devices Clothing : Common streetwear Clothing Disposition : With patient Jewelry : Ring Jewelry Disposition : With patient Personal Items : Cell phone Personal Items Disposition : With patient BETTY HOPKINS RN - 12/28/2018 9:24 EST documented in this encounter Plan of Treatment Not on file documented as of this encounter Visit Diagnoses Not on filedocumented in this encounter Care Teams Cafeteria Or Lunchroom Checker Relationship Specialty Start Date End Date Emily Estrada [address] [facility] [address] [place] [address] PCP - General 05/14/22 06/09/24 [facility], Provider Not In The System, [place] [address] PCP - General 07/18/24 Lolita Belcher [address] [place] [address] [facility], [address] [place] [address] Advanced Registered Nurse Practitioner Primary Care 06/10/24 documented as of this encounter
--- OUTSIDE RECORDS SUMMARY | 2024-08-08 10:54 | XMS_ITS | Encounter Summary ---
Author Organization [employer] Address [address] [place] [address] Care Team Providers Care Software Engineer Name Role Phone Emily Estrada Primary Care Provider Unavail able [facility], Provider Not In The System Primary Care Provider Unavailable Encounter Details Date Type Department Care Team (Late st Contact Info) Description 06/18/2021 Transcribed Document [facility] [place] Medicine [facility] [place] [address] ProviderJodie MD [address] [place] [address] Social History Tobacco Use Types Packs/Day Years Used Date Smoking Tobacco: Never Assessed Sex and Gender Information Value Date Recorded Sex Assigned at Not on file Legal Sex Male 4:10 PM CDT Gender Identity Not on file Sexual Orientation Straight 05/21/2022 1: 57 PM CDT documented as of this encounter Miscellaneous Notes * Cerner Conversion Note - Historical ProviderMD - 06/18/2021 8:28 AM CDT ED Assessment Entered On: 06/18/2021 8:58 EDT Performed On: 06/18/2021 8:56 EDT by EL SIMMS RN ED Quick Look Assessment Level of Consciousness : Alert, Awake Affect/Behavior : Appropriate, Calm, Cooperative Orientation : Oriented x 4 Skin Color : Other: normal Skin Temperature : Warm Skin Description : Dry EL SIMMS RN - 06/18/2021 8:56 EDT ED General-Functional Assess Information Obtained From : Patient Communication Barrier : None Primary Language : Hungarian Any Spiritual/Cultural Needs or Requests : No Currently in Unsafe Situation : No EL SIMMS RN - 06/18/2021 8:56 EDT Social Habits Smoking Status : 10 or more cigarettes (1/2 pack or more)/day in last 30 days Smokeless Tobacco Status : Never Desires Tobacco Cessation Medication : No Reason for No Tobacco Cessation Medication : ED/procedural patient only Desires Tobacco Cessation Calc : 1 EL SIMMS RN - 06/18/2021 8:56 EDT Social History (As Of: 06/18/2021 08:58:46 EDT) Tobacco: Smoking Status Current every day smoker. Cigars/pipes daily Smoking Frequency Within Last 30 Days. Use in Last 12 Months: Cigars. Years of Use: 10. (Last Updated: 12/11/2016 01:10:46 EDT by Roseanna Humphrey, RN) Alcohol: Days/Week: 1. Total Drinks/Week: 1. Use in Last 12 Months: Yes. Alcohol Use Frequency Weekly. (Last Updated: 07/30/2020 14:16:03 EDT by Yadi Del Angel, MATIAS) Alcohol Use History Yes. Total Drinks/Week: 5. Use in Last 12 Months: Yes. (Last Updated: 12/28/2018 09:32:16 EST by BETTY HOPKINS RN) Substance Abuse: Drug Use Hx: No. Use in Last 12 Months: No. (Last Updated: 12/11/2016 01:11:26 EDT by Roseanna Humphrey RN) Cardiovascular ASMT, ED Cardiovascular Assessment WDL : EL RODRIGUEZ RN - 06/18/2021 8:56 EDT Respiratory Respiratory Assessment WDL : EL RODRIGUEZ RN - 06/18/2021 8:56 EDT Oxygen Therapy Oxygen Therapy Mode : Room air EL SIMMS RN - 06/18/2021 8:56 EDT Genitourinary Assessment, ED Genitourinary Assessment WDL : [id number] with exceptions (Comment: pt has known kidney stones, says he gets them frequently however states they are always too big to pass on their own, states he either has to have stents placed of lithrotripsy done. has known kidney stones on his right side. seen at another hospital yesterday due to the pain and states he had some relief but woke up this morning with right lower back pain. states the medications he was prescribed home yesterday are not helping at this time. [EL SIMMS RN - 06/18/2021 8:56 EDT] ) EL SIMMS RN - 06/18/2021 8:56 EDT Neurologic ASMT, ED Neurologic Assessment WDL : WDL EL SIMMS RN - 06/18/2021 8:56 EDT Pain Assessment Pain Assessment : Initial assessment Pain Scale Used : 0-10 Scale EL SIMMS RN - 06/18/2021 8:56 EDT Pain Scale Intensity : 10 EL SIMMS RN - 06/18/2021 8:56 EDT Image 4 - Images currently included in the form version of this document have not been included in the text rendition version of the form. documented in this encounter Plan of Treatment Not on file documented as of this encounter Visit Diagnoses Not on filedocumented in this encounter Care Teams Software Engineer Relationship Specialty Start Date End Date Emily Estrada [address] [place] [phone] PCP - General 05/14/22 06/09/24 [facility], Provider Not In The System, [place] [address] PCP - General 07/18/24 Lolita Belcher [address], [address] [place] [address] Advanced Registered Nurse Practitioner Primary Care 06/10/24 documented as of this encounter
--- OUTSIDE RECORDS SUMMARY | 2024-08-08 10:54 | XMS_ITS | Encounter Summary ---
Author Organization [employer] Address [address] [place] [address] Care Team Providers Care Hvac Residential Service Technician Name Role Phone Emily Estrada Primary Care Provider Unavail able [facility], Provider Not In The System Primary Care Provider Unavailable Encounter Details Date Type Department Care Team (Late st Contact Info) Description 07/30/2020 Transcribed Document [facility] [place] [address] [place] [address] ProviderJodie MD [address] [place] [address] Social History Tobacco Use Types Packs/Day Years Used Date Smoking Tobacco: Never Assessed Sex and Gender Information Value Date Recorded Sex Assigned at Not on file Legal Sex Male 4:10 PM CDT Gender Identity Not on file Sexual Orientation Straight 05/21/2022 1: 57 PM CDT documented as of this encounter Miscellaneous Notes * Cerner Conversion Note - Historical ProviderMD - 07/30/2020 8:23 PM CDT Family/Agency/Support Person Communication Entered On: 07/30/2020 20:25 EDT Performed On: 07/30/2020 20:23 EDT by Herlinda Humphrey Rn Family/Agency/Support Person Communication Date/Time of Communication : 07/30/2020 20:24 EDT Communicated with : Spouse Communication Details : called spouse udpated provided. Herlinda Humphrey Rn - 07/30/2020 20:23 EDT documented in this encounter Plan of Treatment Not on file documented as of this encounter Visit Diagnoses Not on filedocumented in this encounter Care Teams Hvac Residential Service Technician Relationship Specialty Start Date End Date Emily Estrada [address] [phone] PCP - General 05/14/22 06/09/24 [facility], Provider Not In The System, [place] [address] PCP - General 07/18/24 Lolita Belcher [address], [address] [place] [address] Advanced Registered Nurse Practitioner Primary Care 06/10/24 documented as of this encounter
--- OUTSIDE RECORDS SUMMARY | 2024-08-08 10:54 | XMS_ITS | Encounter Summary ---
Author Organization [employer] Address [address] [place] [address] Care Team Providers Care Crowning Hammer Operator Name Role Phone Emily Estrada Primary Care Provider Unavail able [facility], Provider Not In The System Primary Care Provider Unavailable Encounter Details Date Type Department Care Team (Late st Contact Info) Description 06/19/2021 Transcribed Document [facility] [place] [address] [place] [address] ProviderJodie MD [address] [place] [address] Social History Tobacco Use Types Packs/Day Years Used Date Smoking Tobacco: Never Assessed Sex and Gender Information Value Date Recorded Sex Assigned at Not on file Legal Sex Male 4:10 PM CDT Gender Identity Not on file Sexual Orientation Straight 05/21/2022 1: 57 PM CDT documented as of this encounter Miscellaneous Notes * Cerner Conversion Note - Historical ProviderMD - 06/19/2021 2:29 PM CDT Stroke/Warfarin Instructions Entered On: 06/19/2021 14:29 EDT Performed On: 06/19/2021 14:29 EDT by Marciarmen Dominguez RN-[employer] Stroke/Warfarin Instructions Stroke/TIA Discharge Ins : N/A Warfarin Discharge Ins : N/A Maricarmen Dominguez RN-[employer] - 06/19/2021 14:29 EDT Education Topics: Anticoagulant Education Anticoagulant : Anticoagulant other than warfarin Compliance Issues *Q : Verbalizes understanding Diet *Q : Verbalizes understanding Adverse drug reactions/interactions *Q : Verbalizes understanding Action/Interaction with Other Drugs : Verbalizes understanding Follow-up care/monitoring *Q : Verbalizes understanding Follow-up Care Details : Physician's office/clinic Maricarmen Dominguez, MATIAS-[employer] - 06/19/2021 14:29 EDT Electronically signed by Jane, [facility] Conversion Mold Tooling Technician Cerner at 06/03/2022 10:36 PM CDT documented in this encounter Plan of Treatment Not on file documented as of this encounter Visit Diagnoses Not on filedocumented in this encounter Care Teams Crowning Hammer Operator Relationship Specialty Start Date End Date Emily Estrada [address] [phone] PCP - General 05/14/22 06/09/24 [facility], Provider Not In The System, [place] [address] PCP - General 07/18/24 Lolita Belcher [address] [place] [address] [place] [address], [address] [address] Advanced Registered Nurse Practitioner Primary Care 06/10/24 documented as of this encounter
--- OUTSIDE RECORDS SUMMARY | 2024-08-08 10:54 | XMS_ITS | Encounter Summary ---
Author Organization [employer] Address [address] [place] [address] Care Team Providers Care Chairman President And Chief Executive Officer Name Role Phone Emily Estrada Primary Care Provider Unavail able [facility], Provider Not In The System Primary Care Provider Unavailable Encounter Details Date Type Department Care Team (Late st Contact Info) Description 06/18/2021 Transcribed Document [facility] Family Medicine [place] [address] ProviderJodie MD [address] [place] [address] Social History Tobacco Use Types Packs/Day Years [...] ProviderMD - 06/18/2021 8:28 AM CDT ED Triage Entered On: 06/18/2021 8:39 EDT Performed On: 06/18/2021 8:36 EDT by Shemar Green RN ED Triage Across the Room Chief Complaint : to ed with c/o right flank pain. At [facility] yesterday and was told that he had multiple kidney stones. He has had to have several stents. Triage Date/Time : 06/18/2021 8:36 EDT Shemar Green RN - 06/18/2021 8:36 EDT DCP GENERIC CODE Tracking Acuity : 3 - Urgent Tracking Group : [facility] Shemar Green RN - 06/18/2021 8:36 EDT Mode of Arrival : Ambulatory Transported to ED by : Private vehicle To Room Via : Ambulate Accompanied By : Unaccompanied ED Vital Signs : Document Height & Weight : Document ED Allergies : Document ED Reason for Visit : Document Tetanus Immunization : Greater than 10 years Shemar Green RN - 06/18/2021 8:36 EDT Infectious Disease History Does patient have symptoms of COVID-19? : No Tested for COVID19 in the past 14 days : No, Patient stated Does the Patient state known exposure to a COVID-19 positive case in the last 14 days? : No Patient Vaccinated for COVID-19 : Fully vaccinated Shemar Green RN - 06/18/2021 8:36 EDT Infectious Disease Risk Screening Grid Cough < 2 wks of unknown origin : NO Cough > 2 weeks : NO Blood in Sputum : NO Fever or self-reported Fever : NO Rash of unknown origin : NO Headache : NO Stiff neck : NO Night Sweats : NO Unexplained Weight Loss : NO Diarrhea (3 episode per day) : NO Shemar Green RN - 06/18/2021 8:36 EDT Physical contact outside [place] in the last 30 days : No Hospitalized in Foreign Country : No Infectious Disease History : Chicken pox/Shingles, Hepatitis C, Influenza, Measles, Mumps INF Disease TB Screening Calc : 0 INF Disease Recent Travel Calc : 0 Shemar Green RN - 06/18/2021 8:36 EDT Vital Signs ED Temperature Source : Oral Temperature Mode : Fahrenheit Temperature, Fahrenheit : 98.2 Deg F Clinical Temperature, C : 36.8 Deg C Oxygen Therapy Mode : Room air Peripheral Pulse Rate : 76 bpm Respiratory Rate : 18 Breaths/Min Systolic Blood Pressure : 172 mmHg (HI) Diastolic Blood Pressure : 95 mmHg (HI) Oxygen Saturation : 99 % Shemar Green RN - 06/18/2021 8:36 EDT Allergy (As Of: 06/18/2021 08:39:27 EDT) Allergies (Active) Flomax Estimated Onset Date: Unspecified ; Reactions: Flushing ; Created By: Bean, Yadi, RN; Reaction Status: Active ; Category: Drug ; Substance: Flomax ; Type: Allergy ; Updated By: Yadi Del Angel RN; Reviewed Date: 06/18/2021 8:37 EDT Diagnosis Control ED (As Of: 06/18/2021 08:39:27 EDT) Problems(Active) Arthritis (SNOMED CT :9836024 ) Name of Problem: Arthritis ; Recorder: Yadi Del Angel RN; Confirmation: Confirmed ; Classification: Medical ; Code: 5829502 ; Contributor System: ADIKTIVOChart ; Last Updated: 07/30/2020 14:12 EDT ; Life Cycle Date: 07/30/2020 ; Life Cycle Status: Active ; Vocabulary: SNOMED CT At risk for sleep apnea (IMO :23567279 ) Name of Problem: At risk for sleep apnea ; Recorder: SYSTEM, SYSTEM; Confirmation: Confirmed ; Classification: Medical ; Code: 61583992 ; Last Updated: 07/30/2020 14:36 EDT ; Life Cycle Date: 07/30/2020 ; Life Cycle Status: Active ; Vocabulary: IMO GERD (SNOMED CT :961827618 ) Name of Problem: GERD ; Recorder: Yadi Del Angel RN; Confirmation: Confirmed ; Classification: Medical ; Code: 094791015 ; Contributor System: PowerChart ; Last Updated: 07/30/2020 14:11 EDT ; Life Cycle Date: 07/30/2020 ; Life Cycle Status: Active ; Vocabulary: SNOMED CT Gout (SNOMED CT :843232962 ) Name of Problem: Gout ; Recorder: Yadi Del Angel RN; Confirmation: Confirmed ; Classification: Medical ; Code: 700041502 ; Contributor System: PowerChart ; Last Updated: 07/30/2020 14:12 EDT ; Life Cycle Date: 07/30/2020 ; Life Cycle Status: Active ; Vocabulary: SNOMED CT Hyperlipidemia (SNOMED CT :86986228 ) Name of Problem: Hyperlipidemia ; Recorder: Yadi Del Angel RN; Confirmation: Confirmed ; Classification: Medical ; Code: 03442486 ; Contributor System: PowerChart ; Last Updated: 07/30/2020 14:12 EDT ; Life Cycle Date: 07/30/2020 ; Life Cycle Status: Active ; Vocabulary: SNOMED CT Hypertension (SNOMED CT :6630422761 ) Name of Problem: Hypertension ; Recorder: Yadi Del Angel RN; Confirmation: Confirmed ; Classification: Medical ; Code: 5540217307 ; Contributor System: ADIKTIVOChart ; Last Updated: 07/30/2020 14:10 EDT ; Life Cycle Date: 07/30/2020 ; Life Cycle Status: Active ; Vocabulary: SNOMED CT Myocardial infarction x2 (SNOMED CT :76548341 ) Name of Problem: Myocardial infarction x2 ; Onset Date: 2009 ; Recorder: Yadi Del Angel RN; Confirmation: Confirmed ; Classification: Medical ; Code: 02816110 ; Contributor System: ADIKTIVOChart ; Last Updated: 07/30/2020 14:10 EDT ; Life Cycle Date: 07/30/2020 ; Life Cycle Status: Active ; Vocabulary: SNOMED CT Smoker - cigars (SNOMED CT :646644514 ) Name of Problem: Smoker - cigars ; Recorder: Yadi Del Angel RN; Confirmation: Confirmed ; Classification: Medical ; Code: 645116524 ; Contributor System: ADIKTIVOChart ; Last Updated: 07/30/2020 14:11 EDT ; Life Cycle Date: 07/30/2020 ; Life Cycle Status: Active ; Vocabulary: SNOMED CT Thyroid cancer (SNOMED CT :900751389 ) Name of Problem: Thyroid cancer ; Recorder: Yadi Del Angel RN; Confirmation: Confirmed ; Classification: Medical ; Code: 241433321 ; Contributor System: AtTask ; Last Updated: 07/30/2020 14:13 EDT ; Life Cycle Date: 07/30/2020 ; Life Cycle Status: Active ; Vocabulary: SNOMED CT Diagnoses(Active) Flank pain Date: 06/18/2021 ; Diagnosis Type: Reason For Visit ; Confirmation: Complaint of ; Clinical Dx: Flank pain ; Classification: Medical ; Clinical Service: Emergency medicine ; Code: PNED ; Probability: 0 ; Diagnosis Code: [id number] ED Height and Weight Height Source : Stated Height Entry Format : [place] Height, Feet : 6 ft(Converted to: 183 cm, 72 Inch) Height, Inches : 1 Inch(Converted to: 0 ft 1 Inch, 2.54 cm) Clinical Height : 185.42 cm Weight Source, ED : Critical estimated dosing weight Weight Entry Format : [place] Weight, Pounds : 240 lb Clinical Dosing Weight : 109.09 kg Body Surface Area (BSA) : 2.33 m2 Body Mass Index : 31.7 kg/m2 (HI) [place] Body Weight (IBW) : 78.88 kg Shemar Green, RN - 06/18/2021 8:36 EDT Electronically signed by Jane, [facility] Conversion Rehabilitation Tech Cerner at 06/03/2022 10:48 PM CDT documented in this encounter Plan of Treatment Not on file documented as of this encounter Visit Diagnoses Not on filedocumented in this encounter Care Teams Chairman President And Chief Executive Officer Relationship Specialty Start Date End Date Emily Estrada [address] [place] [phone] PCP - General 05/14/22 06/09/24 [facility], Provider Not In The System, [place] [address] PCP - General 07/18/24 Lolita Belcher [address] [place] [address], [address] [address] Advanced Registered Nurse Practitioner Primary Care 06/10/24 documented as of this encounter
--- OUTSIDE RECORDS SUMMARY | 2024-08-08 10:54 | XMS_ITS | Encounter Summary ---
Author Organization [employer] Address [address] [place] [address] Care Team Providers Care Manager Pediatric Name Role Phone [facility], Provider Not In The System MD Primary Care Provider Unavailable Reason for Referral * Diagnostic X-Ray (Emergency) - New Request Specialty Diagnoses / Procedures Referred By Linwood lozada Referred To Contact Diagnoses Calculus of kidney Procedures X-ray abdomen KUB 1 view Shi Alvarenga PA [address] [place] [address] [place] [address] Phone: tel: fax: Referral ID Status Reason Start Date Expiration Date V isits Requested Visits Authorized [id number] New Request 07/12/2024 07/12/2025 1 1 Encounter Details Date Type Department Care Team (Late st Contact Info) Description 07/12/2024 Outside Orders [facility] Diagnostic Imaging - [place] [facility] [place] [address] [place] [address] [address] [place] [phone] Shi Alvarenga PA [address] [place] [address] [place] [address] Calculus of kidney (Primary Dx) Social History Tobacco Use Types Packs/Day Years [...] your living situation today? I have a [facility] place to live 06/08/2024 Think about [...] Do you speak a language other than [place] at [facility]? No 06/08/2024 Do you want help [...] on file documented as of this encounter Results * X-ray abdomen KUB [...] this encounter Visit Diagnoses Diagnosis Calculus of kidney- Primary Calculus of kidney documented in this encounter Care Teams Manager Pediatric Relationship Specialty Start Date End Date [facility], Provider Not In The System, [place] [address] PCP - General 07/18/24 Lolita Belcher [address] [place] [address], [address] [place] [address] Advanced Registered Nurse Practitioner Primary Care 06/10/24 documented as of this encounter
--- OUTSIDE RECORDS SUMMARY | 2024-08-08 10:54 | XMS_ITS | Encounter Summary ---
Author Organization [employer] Address [address] [place] [address] Care Team Providers Care Shoe Polisher Name Role Phone Emily Estrada Primary Care Provider Unavail able [facility], Provider Not In The System Primary Care Provider Unavailable Encounter Details Date Type Department Care Team (Late st Contact Info) Description 07/30/2020 Transcribed Document [facility] [place] [facility] [place] [address] ProviderJodie MD [address] [place] [address] Social History Tobacco Use Types Packs/Day Years Used Date Smoking Tobacco: Never Assessed Sex and Gender Information Value Date Recorded Sex Assigned at Not on file Legal Sex Male 4:10 PM CDT Gender Identity Not on file Sexual Orientation Straight 05/21/2022 1: 57 PM CDT documented as of this encounter Miscellaneous Notes * Cerner Conversion Note - Historical ProviderMD - 07/30/2020 7:15 PM CDT [facility] Main OR PACU Summary Primary Physician: VLAD LEPE MD-URO Finalized Date/Time: 08/01/20 10:01:46 Pt. Name: TAY THOMAS /Sex: 1955 Male Med Rec #: [id number] Physician: VLAD LEPE MD-URO Financial #: [id number] Pt. Type: O Room/Bed: Admit/Disch: 07/30/20 13:09:00 - Institution: [facility] Main OR PACU I Case Times Entry 1 In PACU I 07/30/20 20:03:00 Ready for PACU 07/30/20 21:02:00 Discharge Discharge from PACU 07/30/20 21:02:00 I Last Modified By: Herlinda Humphrey Rn 07/30/20 21:02:55 Finalized By: Zenon Valentine, MATIAS Document Signatures Signed By: Khloe Barclay, Nurse Associate Faculty 07/31/20 14:42 Herlinda Humphrey Rn 07/30/20 21:03 Zenon Valentine RN 08/01/20 10:01 Unfinalized History Date/Time Username Reason for Unfinalizing Freetext Reason for Unfinalizing 07/31/20 14:42 [id number] Correct Documentation 08/01/20 10:01 STEVE Correct Documentation Electronically signed by [facility] Conversion Oxygen System Tester Cerner at 06/03/2022 10:49 PM CDT documented in this encounter Plan of Treatment Not on file documented as of this encounter Visit Diagnoses Not on filedocumented in this encounter Care Teams Shoe Polisher Relationship Specialty Start Date End Date Emily Estrada [address] [place] [phone] PCP - General 05/14/22 06/09/24 [facility], Provider Not In The System, [place] [address] PCP - General 07/18/24 Lolita Belcher [address] [place] [address], [address] [place] [id number] Advanced Registered Nurse Practitioner Primary Care 06/10/24 documented as of this encounter
--- OUTSIDE RECORDS SUMMARY | 2024-08-08 10:54 | XMS_ITS | Encounter Summary ---
Author Organization [email or web address] Address [address] [place] [address] Care Team Providers Care Beverage Specialist Name Role Phone Emily Estrada Primary Care Provider Unavail able [facility], Provider Not In The System Primary Care Provider Unavailable Encounter Details Date Type Department Care Team (Late st Contact Info) Description 06/18/2021 Transcribed Document [facility] [place] [address] [place] [address] ProviderJodie MD [address] [place] [address] Social History Tobacco Use Types Packs/Day Years Used Date Smoking Tobacco: Never Assessed Sex and Gender Information Value Date Recorded Sex Assigned at Not on file Legal Sex Male 4:10 PM CDT Gender Identity Not on file Sexual Orientation Straight 05/21/2022 1: 57 PM CDT documented as of this encounter Miscellaneous Notes * Cerner Conversion Note - Historical ProviderMD - 06/18/2021 2:01 PM CDT Pain Assessment Entered On: 06/19/2021 6:32 EDT Performed On: 06/19/2021 0:55 EDT by Melinda Donaldson RN Intervention Information: HYDROmorphone Performed by Melinda Donaldson RN on 06/19/2021 00:25:00 EDT HYDROmorphone,0.5mg IV Push,Right Antecubit Jacqueline,Pain (Severe 7-10) Pain Assessment Pain Scale Goal : 3 Pain Scale Used : 0-10 Scale Melinda Donaldson RN - 06/19/2021 6:31 EDT Pain Scale Intensity : 3 Melinda Donaldson RN - 06/19/2021 6:31 EDT Image 4 - Images currently included in the form version of this document have not been included in the text rendition version of the form. documented in this encounter Plan of Treatment Not on file documented as of this encounter Visit Diagnoses Not on filedocumented in this encounter Care Teams Beverage Specialist Relationship Specialty Start Date End Date Emily Estrada [address] [place] [phone] PCP - General 05/14/22 06/09/24 [facility], Provider Not In The System, [place] [address] PCP - General 07/18/24 Lolita Belcher [address] [place] [address], [address] [place] [address] Advanced Registered Nurse Practitioner Primary Care 06/10/24 documented as of this encounter
--- OUTSIDE RECORDS SUMMARY | 2024-08-08 10:54 | XMS_ITS | Encounter Summary ---
Author Organization [employer] Address [address] [place] [address] Care Team Providers Care Radiochemical Technician Name Role Phone Emily Estrada Primary Care Provider Unavail able [facility], Provider Not In The System Primary Care Provider Unavailable Encounter Details Date Type Department Care Team (Late st Contact Info) Description 06/18/2021 Transcribed Document [facility] Radiology [address] [place] [address] Juhi Garcia MD [address] [place] [address] [address] [place] [address] Social History Tobacco Use Types Packs/Day Years Used Date Smoking Tobacco: Never Assessed Sex and Gender Information Value Date Recorded Sex Assigned at Not on file Legal Sex Male 4:10 PM CDT Gender Identity Not on file Sexual Orientation Straight 05/21/2022 1: 57 PM CDT documented as of this encounter Miscellaneous Notes * Cerner Conversion Note - Juhi Garcia MD - 06/18/2021 2:34 PM EDT Patient: TAY THOMAS Age: 65 Years Sex: Male : 1955 Chief Complaint to ed with c/o right flank pain. At [facility] yesterday and was told that he had multiple kidney stones. He has had to have several stents. Primary Care Provider DESIREE LEE MD-FAM History of Present Illness Mr. Thomas is a 65 year old [...] is normal and UA clear of infection, ED-HOUSEKEEPING AID spoke to his urologist Dr. Young who asked for Sound to admit and he will see him tonight, presumably to place ureteral stents. He has had no recent illness with fever, + nausea w/o vomiting with pain, no diarrhea or dysuria. He reports urine slow to come out. He was recently taken off flomax and his BB because he was having hypotension. ED labs: Na 135, BUN 15, Creat 1.0, WBC 8.1 Hgb [address] abd/pelvis revealing bilateral nonobstructing stones Review of Systems Constitutional symptoms: No fever, no chills, no significant weight loss Skin symptoms: No rash, no pruritus Eye symptoms: No recent vision problems, no pain, no discharge. ENMT symptoms: No URI symptoms Respiratory symptoms: No shortness of breath, no cough, no hemoptysis. Cardiovascular symptoms: no diaphoresis, no syncope, no peripheral edema. Gastrointestinal symptoms: No vomiting, diarrhea, no rectal bleeding, Genitourinary symptoms: No dysuria, no hematuria. Musculoskeletal symptoms: arthritis . Neurologic symptoms: No headache, no seizure, no numbness, no tingling, no focal weakness. Psychiatric symptoms: No anxiety, no depression. Endocrine symptoms: No polyuria, polydipsia Hematologic/Lymphatic symptoms: on ASA Vital Signs T: 36.8 ??C HR: 70(Monitored) RR: 18 BP: 172/95 SpO2: 98% HT: 185.42 cm WT: 109.09 kg BMI: 31.7 Oxygen Settings (Last) Oxygen Therapy Mode: Room air (06/18/21 12:19:00) Physical Exam General: alert, no acute distress, [...] intact. Psych: cooperative normal mood and affect Assessment/Plan Renal colic intrarenal stones bilaterally w/o hydro, per pt need ureteral stents to pass; Dr. Young consulted by EDMT, will see pain control, NPO until eval by UROL CAD ND 19 years ago reports recent normal echo and stress test; hold ASA pending possible procedure HTN continue home lisinopril 20mg bid Hx thyroid cancer s/p partial removal continue synthroid home dose Osteoarthritis avoid NSAIDS Fatty liver known elevated liver enzymes, can lead to cirrhosis advised to f/u with PCP Full Code his is his secondary decision maker Kelsie Marcellus VTE Prophylaxis - Medical SCD Problem List/Past Medical History Ongoing Arthritis At risk for sleep apnea GERD Gout Hyperlipidemia Hypertension Myocardial infarction x2 Smoker - cigars Thyroid cancer Historical Kidney stone Procedure/Surgical History Lithotripsy (2018), Cholecystectomy (2017), Rotator cuff structure of right shoulder (2010), Thyroidectomy (2010), Cyst removal from right ankle, Right rotator cuff repair. Home Medications (10) Active allopurinol 300 mg oral tablet 300 mg = 1 Tab, Oral, Daily aspirin 81 mg, Oral, Daily atorvastatin 10 mg oral tablet , Oral, Daily Centrum 1 Tab, Oral, Daily Fish Oil 500 mg oral capsule 500 mg = 1 Cap, Oral, Daily lisinopril 20 mg, Oral, Daily Synthroid 75 mcg, Oral, Daily vitamin E 400 Int Units, Oral, Daily zinc sulfate 66 mg oral tablet 66 mg = 1 Tab, Oral, Daily Allergies Flomax (Flushing) flomax caused hypotension in combination with other meds Social History smokes a cigar occasionally; alcohol occasionally; marijuana nightly to sleep Family History significant CAD Diagnostic Results Radiology Results (Last 48 hours) [id number] -- 06/18/2021 11:35 CT Abdomen Pelvis WO [...] Test Name Test Result Date/Time Sodium Level 135 mmol/L (Low) 06/18/2021 08:45 EDT Potassium Level 4.6 mmol/L 06/18/2021 08:45 EDT Chloride Level 102 mmol/L 06/18/2021 08:45 EDT Carbon Dioxide Level 27 mmol/L 06/18/2021 08:45 EDT Anion Gap 11 06/18/2021 08:45 EDT Glucose Level 115 mg/dL (High) 06/18/2021 08:45 EDT Blood Urea Nitrogen 15 mg/dL 06/18/2021 08:45 EDT Creatinine Level 1.00 mg/dL 06/18/2021 08:45 EDT eGFR >60 mL/min/1.73m2 06/18/2021 08:45 EDT eGFR NonAfrican >60 mL/min/1.73m2 06/18/2021 08:45 EDT Bun/Creatinine 15.0 06/18/2021 08:45 EDT Calcium Level 9.7 mg/dL 06/18/2021 08:45 EDT Protein Total 8.5 Gram/dL (High) 06/18/2021 08:45 EDT Albumin Level 4.3 Gram/dL 06/18/2021 08:45 EDT Globulin 4.2 Gram/dL 06/18/2021 08:45 EDT A/G Ratio 1.0 (Low) 06/18/2021 08:45 EDT Bilirubin Total 0.4 mg/dL 06/18/2021 08:45 EDT Alk Phos 142 Units/Liter (High) 06/18/2021 08:45 EDT AST 49 Units/Liter (High) 06/18/2021 08:45 EDT ALT 73 Units/Liter (High) 06/18/2021 08:45 EDT Lipase Level 136 Units/Liter 06/18/2021 08:45 EDT WBC 8.1 K/uL 06/18/2021 08:45 EDT RBC 4.57 Million/uL 06/18/2021 08:45 EDT Hgb 14.6 g/dL 06/18/2021 08:45 EDT Hct 43.7 % 06/18/2021 08:45 EDT MCV 95.6 fL (High) 06/18/2021 08:45 EDT MCH 31.9 pg 06/18/2021 08:45 EDT MCHC 33.4 Gram/dL 06/18/2021 08:45 EDT Platelet Count 260 K/uL 06/18/2021 08:45 EDT MPV 9.8 fL 06/18/2021 08:45 EDT RDW 12.4 % 06/18/2021 08:45 EDT Neut % 64.0 % 06/18/2021 08:45 EDT Neut # 5.21 K/uL 06/18/2021 08:45 EDT Lymph % 21.5 % 06/18/2021 08:45 EDT Lymph # 1.75 x10(3)/uL 06/18/2021 08:45 EDT [place] % 11.5 % (High) 06/18/2021 08:45 EDT [place] # 0.94 K/uL 06/18/2021 08:45 EDT Eos % 1.6 % 06/18/2021 08:45 EDT Eos # 0.13 x10(3)/uL 06/18/2021 08:45 EDT Baso % 1.0 % 06/18/2021 08:45 EDT Baso # 0.08 x10(3)/uL 06/18/2021 08:45 EDT Slide Review No 06/18/2021 08:45 EDT IG# 0.03 x10(3)/uL 06/18/2021 08:45 EDT IG% 0.40 % 06/18/2021 08:45 EDT Urine Type. U CleanCatch 06/18/2021 11:27 EDT Urine Color YELLOW2 06/18/2021 11:27 EDT Urine Appearance CLEAR2 06/18/2021 11:27 EDT Urine Specific [place] 1.011 06/18/2021 11:27 EDT Urine pH Dipstick 5.5 (Low) 06/18/2021 11:27 EDT Urine Leukocyte Esterase NEGATIVE2 06/18/2021 11:27 EDT Urine Nitrite NEGATIVE2 06/18/2021 11:27 EDT Urine Protein Dipstick NEGATIVE2 06/18/2021 11:27 EDT Urine Glucose Dipstick NEGATIVE2 06/18/2021 11:27 EDT Urine Ketones Dipstick NEGATIVE2 06/18/2021 11:27 EDT Urine Urobilinogen Dipstick 0.2 06/18/2021 11:27 EDT Urine Bilirubin Dipstick NEGATIVE2 06/18/2021 11:27 EDT Urine Blood Dipstick NEGATIVE2 06/18/2021 11:27 EDT Ur WBC 0-2 06/18/2021 11:27 EDT Ur Squamous Epithelial Cells 0-2 06/18/2021 11:27 EDT Urine Culture if Indicated Not Indicated 06/18/2021 11:27 EDT Additional Documentation Code Status Start: 06/18/21 13:31:00 EDT, Full Code, Continuous Order documented in this encounter Plan of Treatment Not on file documented as of this encounter Visit Diagnoses Not on filedocumented in this encounter Care Teams Radiochemical Technician Relationship Specialty Start Date End Date Emily Estrada [address] [place] [address] PCP - General 05/14/22 06/09/24 [facility], Provider Not In The System, [place] [address] PCP - General 07/18/24 Lolita Belcher [address] [place] [address] [facility], [address] [place] [address] Advanced Registered Nurse Practitioner Primary Care 06/10/24 documented as of this encounter
--- OUTSIDE RECORDS SUMMARY | 2024-08-08 10:54 | XMS_ITS | Encounter Summary ---
Author Organization [employer] Address [address] [place] [address] Care Team Providers Care Drafter Civil Engineering Name Role Phone Emily Estrada Primary Care Provider Unavail able [facility], Provider Not In The System Primary Care Provider Unavailable Encounter Details Date Type Department Care Team (Late st Contact Info) Description 06/19/2021 Transcribed Document [facility] [place] [facility] [place] [address] ProviderJodie MD [address] [place] [address] Social History Tobacco Use Types Packs/Day Years Used Date Smoking Tobacco: Never Assessed Sex and Gender Information Value Date Recorded Sex Assigned at Not on file Legal Sex Male 4:10 PM CDT Gender Identity Not on file Sexual Orientation Straight 05/21/2022 1: 57 PM CDT documented as of this encounter Miscellaneous Notes * Cerner Conversion Note - Historical ProviderMD - 06/19/2021 4:16 PM CDT Nursing Discharge Summary Entered On: 06/19/2021 16:17 EDT Performed On: 06/19/2021 16:16 EDT by Mela Reno RN-PATIENT CARE BEDSIDE NON-EXEMPT Discharge Documentation Discharge Date/Time : 06/19/2021 16:00 EDT Patient Disposition, General : Discharge Discharge To : Home with ambulatory/outpatient follow-up Mode Of Departure, General Discharge : Private vehicle Accompanied By, Discharge : Spouse IV Discontinued : Yes Personal Belongings With Patient : Yes Pt's Own Supply of Medications Returned : No patient supply of medications to return Prescriptions Given to Patient : No Medications Given to Patient : No Education Comment : Pt uninterested in education and refusing all treatments. room secured for teaching, present, consented to teaching. Instructed on condition, medication, diet,activity and followup appointment BoardMela RN-PATIENT CARE BEDSIDE NON-EXEMPT - 06/19/2021 16:16 EDT Electronically signed by Jane [facility] Conversion Marine Engineering Professor Cerner at 06/03/2022 10:43 PM CDT documented in this encounter Plan of Treatment Not on file documented as of this encounter Visit Diagnoses Not on filedocumented in this encounter Care Teams Drafter Civil Engineering Relationship Specialty Start Date End Date Emily Estrada [address] [address] PCP - General 05/14/22 06/09/24 [facility], Provider Not In The System, [place] [address] PCP - General 07/18/24 Lolita Belcher [address] [place] [address], [address] [place] [id number] Advanced Registered Nurse Practitioner Primary Care 06/10/24 documented as of this encounter
--- OUTSIDE RECORDS SUMMARY | 2024-08-08 10:54 | XMS_ITS | Continuity of Care Document ---
Author Organization [facility] Douglas aparicio [facility] Address [address] [facility] [address] [place] [address] Care Team Providers Care Telegraph And Teletype Operator Name Role Phone DESIREE LEE Primary Care Provider Assessment Encounter Date Assessment Date Assessment LastModified by Organization Details LastModified Time 07/26/2024 07/26/2024 68-year-old male with a history of nephrolithiasis presenting for follow-up. The patient has an extensive history of urolithiasis, noting increased frequency and size of stones in recent years. Further evaluation is essential to determine potential metabolic contributors. His dietary changes indicate a proactive approach, but further diagnostic studies will aid in tailoring his treatment and management strategies to mitigate recurrence. Plan: - Continue Tamsulosin prescription. - Initiate metabolic workup: serum calcium, parathyroid hormone, urine uric acid, vitamin D, and phosphorus and arrange a 24-hour urine collection study for comprehensive analysis. He brought a large stone in today that will be sent to the lab for composition analysis. - Conduct follow-up imaging prior to the next appointment. - Review results and follow-up in one month for further evaluation and management refinement. Not available 07/26/2024 13:02:15 Plan of Treatment Reminders Order Date Submit Date Provider Last Modified By Organization Details Last Modified Time Details Appointments RECHECK 2024 01:45P M DEVIN PUENTE PA-C Not available Not available Not available Lab kidney stone analysis 2024 06 025 [facility], [address] [place] [address], [phone], 07/29/2024 01:34:07 PTH (parathyr oid hormone), intact + calcium, serum or plasma 2024 025 [facility], [address] [place], [address], 07/26/2024 15:04:10 unlisted lab - urology custom panel 2024 025 [facility], [address] [place], [address], 07/26/2024 15:10:06 urinalysi s panel, auto 2024 025 [email or web address] 4 [facility], [address] [place] [address], [facility] [address], [place], [address], 07/26/2024 09:19:12 Referral None recorded. Procedures None recorded. Surgeries None recorded. Imaging None recorded. Medication Orders tamsulosi n 0.4 mg capsule 2024 025 [facility], [address] [place] [address], [id number], 07/28/2024 10:27:27 Patient TargetsNo targets recorded. Patient Instructions Encounter Date Encounter Id Patient Instructions Last Modified By Organization Details Last Modified Time 07/26/2024 [id number] - Continue takin g Tamsulosin as prescribed. - Expect a 24-hour urine collection kit in the mail. Follow the instructions carefully. - Avoid altering your diet or fluid intake specifically for the urine test; maintain a normal routine. - Schedule a follow-up appointment in one month after completing the tests. - Notify your healthcare provider if you experience severe pain, urinary retention, or other acute symptoms. [email or web address] Not available 07/26/2024 09:12:26 I discussed with the patient the current management of his nephrolithiasis and the role of Tamsulosin in facilitating stone passage. We talked about the importance of conducting a metabolic workup to identify underlying contributors to his recurrent stone formation, including assessment of serum calcium, parathyroid hormone, urine uric acid, vitamin D, and phosphorus. I recommended a 24-hour urine collection to provide detailed information about his urinary composition. We discussed the follow-up plan, which includes imaging and reviewing all diagnostic results in a month. The patient was informed about the necessity of adherence to current prescriptions and dietary recommendations until further evaluation is complete. [email or web address] Not available 07/26/2024 09:12:26 Reason for Referral None Reported. Results Created Date Observation Date Name Description Value Unit Range Abnormal Flag Note LastModifiedBy Organization Detail LastModifiedTime 07/27/1907/26/2024 urina lysis panel , auto Unknown Analyte Clean Catch Not Available [facility] [address], [place], [address], 07/26/2024 09:12:37 07/27/19 25 07/26/2024 urina lysis panel , auto Unknown Analyte Straw Not Available [facility] [address], [place], [address], 07/26/2024 09:12:37 07/27/19 25 07/26/2024 urina lysis panel , auto Unknown Analyte Clear Not Available [facility] [address], [place], [address], 07/26/2024 09:12:37 07/27/19 25 07/26/2024 urina lysis panel , auto Unknown Analyte 1.025 Not Available [facility] [address], [place], [address], 07/26/2024 09:12:37 07/27/19 25 07/26/2024 urina lysis panel , auto Unknown Analyte 1.003 - 1.030 Not Available [facility] [address], [place], [address], 07/26/2024 09:12:37 07/27/19 25 07/26/2024 urina lysis panel , auto Unknown Analyte 5.0 Not Available [facility] [address], [place], [address], 07/26/2024 09:12:37 07/27/19 25 07/26/2024 urina lysis panel , auto Unknown Analyte 5.0 - 8.0 Not Available [facility] [address], [place], [address], 07/26/2024 09:12:37 07/27/19 25 07/26/2024 urina lysis panel , auto Unknown Analyte Negati ve Not Available [facility] [address], [place], [address], 07/26/2024 09:12:37 07/27/19 25 07/26/2024 urina lysis panel , auto Unknown Analyte Negati ve Not Available [facility] [address], [place], [address], 07/26/2024 09:12:37 07/27/1907/26/2024 urina lysis panel , auto Unknown Analyte Negati ve Not Available [facility] [address], [place], [address], 07/26/2024 09:12:37 07/27/19 25 07/26/2024 urina lysis panel , auto Unknown Analyte Negati ve Not Available [facility] [address], [place], [address], 07/26/2024 09:12:37 07/27/19 25 07/26/2024 urina lysis panel , auto Unknown Analyte Negati ve Not Available [facility] [address], [place], [address], 07/26/2024 09:12:37 07/27/1907/26/2024 urina lysis panel , auto Unknown Analyte Negati ve Not Available [facility] [address], [place], [address], 07/26/2024 09:12:37 07/27/1907/26/2024 urina lysis panel , auto Unknown Analyte Normal Not Available [facility] [address], [place], [address], 07/26/2024 09:12:37 07/27/1907/26/2024 urina lysis panel , auto Unknown Analyte Normal Not Available [facility] [address], [place], [address], 07/26/2024 09:12:37 07/27/1907/26/2024 urina lysis panel , auto Unknown Analyte Negati ve Not Available [facility] [address], [place], [address], 07/26/2024 09:12:37 07/27/1907/26/2024 urina lysis panel , auto Unknown Analyte Negati ve Not Available [facility] [address], [place], [address], 07/26/2024 09:12:37 07/27/1907/26/2024 urina lysis panel , auto Unknown Analyte 1 mg/dL Not Available [facility] [address], [place], [address], 07/26/2024 09:12:37 07/27/1907/26/2024 urina lysis panel , auto Unknown Analyte Normal Not Available [facility] [address], [place], [address], 07/26/2024 09:12:37 07/27/1907/26/2024 urina lysis panel , auto Unknown Analyte Negati ve Not Available [facility] [address], [place], [address], 07/26/2024 09:12:37 07/27/1907/26/2024 urina lysis panel , auto Unknown Analyte Negati ve Not Available [facility] [address], [place], [address], 07/26/2024 09:12:37 07/27/1907/26/2024 urina lysis panel , auto Unknown Analyte Negati ve Not Available [facility] [address], [place], [address], 07/26/2024 09:12:37 07/27/1907/26/2024 urina lysis panel , auto Unknown Analyte Negati ve Not Available [facility] [address], [place], [address], 07/26/2024 09:12:37 07/13/1907/12/2024 XR, abdom en, 1 view No observ ation record ed. [email or web address] Not Available 06/17 20:13:39 07/13/1907/12/2024 CT, abdom en + pelvi s, w/o contr ast [facility] [address] [place] [address] [place] [address] Patien t Name: TAY THOMAS Patien t : 954 Patien t Orderi ng Provid er: DEVIN WHITNEY S EXAM DATE: 2024 EXAM: CT ABD/PE LVIS [...] ly Signed By: Ward Trejo MD on 025 2:57 PM [email or web address] [facility] [address] [place], [address], 07/13/2024 18:43:42 Result Notes None recorded. Problems No Known Problems Procedures Surgical History Date Name Laterality Status Provider Name and Address Organization Details Recorded Time 07/13/19 Post Void Residual; Ultrasound completed Joy Stone [facility] 07/12/2024 13:54:08 04/11/19 25 Biopsy Skin Lesion; Tangential completed [facility] 04/11/2024 14:41:10 04/11/19 25 Injection, [place] [address] [place] [address], [address], [facility] 04/11/2024 18:30:27 04/11/19 25 Destruction Premalignant Lesion(s) completed [facility] 04/11/2024 14:44:27 01/29/20 23 Lumbar Epidural Steroid Injection - Parth completed PERI CANTOR MD [facility] [place], [address], [facility] 01/28/2023 14:14:59 09/10/19 23 Cervical MBB 2 level - Parth completed PERI CANTOR MD [facility] [place], [address], [facility] 09/09/2022 16:11:18 08/16/19 23 Cervical MBB 2 level - Parth completed PERI CANTOR MD [address] [place], [address], [facility] 08/15/2022 15:23:46 05/04/19 23 Back Surgery completed Alana Streeter [facility] 07/16/2022 08:57:41 04/30/19 18 Shave Lesion; trunk, arm, leg completed MARIA DEL ROSARIO ODOM MD [address] [place] [address], [address], [facility] 04/30/2017 22:32:02 04/30/19 18 Destruction BN Lesions completed Aylin Toussaint [facility] 04/29/2017 08:43:13 Orthopedic Surgery completed Balta Elisa [facility] 11/03/2016 13:55:36 Imaging Results None recorded. Procedure Notes None recorded. Medical Equipment None Reported. Allergies Allergen ID Allergen Name Allergen Category Reaction Reaction Severity Criticality Documentation Date Start Date Code Code System Note Provider Name and Address Organization Details Recorded Time 386965 lisinopri l medicatio n facial swelling Not available Not available 07/16/2022 13327 [facility] 08:[facility]16 Medications Name Sig Start Date Stop [...] every day by oral route as needed. 10/14/ 2024 active Not Available Not Available Not [...] completed Not Available Not Available Not Available [facility] Metoprolo l Tartrate 100 mg tablet Take [...] and Address Organization Details Last Updated DateTime 07/26/2024 185.42 cm 29 kg/m2 13024.32 g Betsy Rosa [facility] 07/26/2024 08:49:59 Social History Question Answer Notes LastModified by Organizat ion Details LastModified Time Tobacco Smoking Status Current Some Day Smoker Balta escalante, [facility] 11/03/2016 13:55:22 How Much Tobacco Do You Chew? None [email or web address] Information not available 07/30/2020 Marital Status [email or web address] Informatio n not available 07/30/2020 What Was The Date Of Your Most Recent Tobacco Screening? 07/26/2024 [email or web address] Information not available 07/26/2024 How Much Tobacco Do You Smoke? No [email or web address] Information not available 07/16/2022 Sex: Male Functional Status Question Answer Note LastModified by Organizat ion Details LastModified Time Do you or have you ever used any other forms of tobacco or nicotine? No [email or web address] Information not available 07/16/2022 What is your level of alcohol consumption? Occasional [email or web address] Information not available 07/30/2020 Are you currently employed? No [email or web address] Information not available 07/16/2022 Do you or have you ever used e-cigarettes or vape? Never used electronic cigarettes [email or web address] Information not available 07/30/2020 What is your exercise level? Heavy [email or web address] Information not available 07/16/2022 Mental Status None recorded. Family History Relationship Description Onset Age of this Age Resolved Age Notes LastModified by Organization Details LastModified Time Father Heart disease [email or web address] Not available 07/16 08:46:24 Brother Heart disease Not available 07/16 08:46:24 Paternal Grandfather Heart disease [email or web address] Not available 07/16 08:46:35 Medical History Condition Response Other N Anxiety/Depression N Gout N Thyroid Disease N Kidney Stones Y Hernia N Glaucoma N COPD N Pneumonia N Anesthesia Complications N Varicose Veins N Autoimmune disease N Arthritis Y Blood Clot N Cancer N Melanoma Y Stroke N Blood Thinners N Alcohol Overuse/Alcohol Abuse N High Cholesterol N Skin Cancer Y Liver Disease N Kidney Disease N Allergies/Hayfever N Squamous Cell Carcinoma N Heart Conditions N Migraines N Acne N Skin Problems N Immune System Disorder N Heart Attack (SC) Y Other Skin Condition N Mental Illness [...] SNOMED-CT Code Diagnosis ICD10 Code Diagnosis Note [id number] JAIME THOMAS CUA, [facility] [address] [place], [place] [address] 07/12/2024 13:17:09 07/12/2024 14:30:00 Urolithiasis 23082604 N20.9 History of Disorder 3128 97658 Z87.898 Recurrent urinary tract infection 671800674 N39.0 Recurrent kidney stone 9091126393 556412 N20.0 Chill 41382490 R68.83 Flank pain 133071930 R10 .9 Z87.442 Kidney stone 98878396 N2 0.0 Acute urin ermelinda tract infection 168329420 N39.0 [id number] JAIME THOMAS CUA, [facility] [address] [place] [address] 07/26/2024 08:34:35 07/26/2024 09:22:25 Urolithiasis 97893407 N20.9 Flank pain 480655091 R10 .9 Z87.442 History of Disorder 3128 11169 Z87.898 Recurrent urinary tract infection 232356540 N39.0 Recurrent kidney stone 9374113784 953601 N20.0 Kidney stone 02317400 N2 0.0 Acute urin ermelinda tract infection 770793266 N39.0 Health Concerns Section Related Observation LastModified by Organization Detai ls LastModified Time None Recorded Concern Status LastModified by Organization Details LastModified Time None Recorded Payers Encounter Date Sequence Insurance Name Policy Number Policy Huang Covered Member ID Huang Member ID Guarantor Name 07/26/2024 1 [place] Tay Thomas [id number] Tay Thomas 07/26/2024 2 [employer] (MEDICARE SUPPLEMENT) Tay Thomas [id number] Tay Thomas Notes Date Note Type Note Provider Name and Address Organization Details Recorded Time 07/26/2024 text/html The patient is a 68-year-old male presenting for follow-up. He has a longstanding history of kidney stones, he has a more recent history of developing superimposed pyelonephritis with secondary bacteremia. I saw him last on 07-12-2024 with signs and symptoms consistent with ureteric obstruction and acute UTI. CT remarkable for an 8mm right UPJ stone that he has been able to successfully pass spontaneously with tamsulosin and supportive care including IV fluids at the ER. He passed 14 stones altogether over several days with an acute increase in symptoms occurring unexpectedly. He is worried about the frequency and rate in which he is producing/passing stones. DEVIN PUENTE PA-C [address] [place], [address], [facility] 07/26/2024 13:03:01
--- OUTSIDE RECORDS SUMMARY | 2024-08-08 10:54 | XMS_ITS | Encounter Summary ---
Author Organization [employer] Address [address] [place] [address] Care Team Providers Care Ios Software Engineer Name Role Phone Emily Estrada Primary Care Provider Unavail able [facility], Provider Not In The System Primary Care Provider Unavailable Encounter Details Date Type Department Care Team (Late st Contact Info) Description 06/18/2021 Transcribed Document [facility] [place] [facility] [place] [address] ProviderJodie MD [address] [place] [address] Social History Tobacco Use Types Packs/Day Years Used Date Smoking Tobacco: Never Assessed Sex and Gender Information Value Date Recorded Sex Assigned at Not on file Legal Sex Male 4:10 PM CDT Gender Identity Not on file Sexual Orientation Straight 05/21/2022 1: 57 PM CDT documented as of this encounter Miscellaneous Notes * Cerner Conversion Note - Historical ProviderMD - 06/18/2021 2:39 PM CDT ED Discharge Entered On: 06/18/2021 14:40 EDT Performed On: 06/18/2021 14:39 EDT by EL SIMMS RN Discharge Process Patient Disposition : Admit/Observe Personal Belongings With Patient : Yes Patient Education Completed : Yes Teaching Evaluation : Verbalizes understanding IV Discontinued : No Nursing Documentation Completed : Yes EL SIMMS RN - 06/18/2021 14:39 EDT Admission, ED Nurse Report Accepted By : see adhoc `Nurse Report (Hand Off) : Called Accompanied By, Discharge : Other: simulation tech x1 Fluids/Drips Continued on Admission : No Fluids/Drips Continued on Admission, Comment : saline locked Mode Of Departure : Wheelchair EL SIMMS RN - 06/18/2021 14:39 EDT Electronically signed by Interface, [facility] Conversion Schedule Maker Cerner at 06/03/2022 10:48 PM CDT documented in this encounter Plan of Treatment Not on file documented as of this encounter Visit Diagnoses Not on filedocumented in this encounter Care Teams Ios Software Engineer Relationship Specialty Start Date End Date Emily Estrada [address] [facility] [address] [place] [address] PCP - General 05/14/22 06/09/24 [facility], Provider Not In The System, [place] [address] PCP - General 07/18/24 Lolita Belcher [address] [place] [address] [place] [address], [address] [place] [address] Advanced Registered Nurse Practitioner Primary Care 06/10/24 documented as of this encounter
--- OUTSIDE RECORDS SUMMARY | 2024-08-08 10:54 | XMS_ITS | Encounter Summary ---
Author Organization [employer] Address [address] [place] [address] Care Team Providers Care Director Of Institutional Research Name Role Phone Emily Estrada Primary Care Provider Unavail able [facility], Provider Not In The System Primary Care Provider Unavailable Encounter Details Date Type Department Care Team (Late st Contact Info) Description 07/30/2020 Transcribed Document [facility] [place] [facility] [place] [address] ProviderJodie MD [address] [place], [place] [address] Social History Tobacco Use Types Packs/Day Years Used Date Smoking Tobacco: Never Assessed Sex and Gender Information Value Date Recorded Sex Assigned at Not on file Legal Sex Male 4:10 PM CDT Gender Identity Not on file Sexual Orientation Straight 05/21/2022 1: 57 PM CDT documented as of this encounter Miscellaneous Notes * Cerner Conversion Note - Historical ProviderMD - 07/30/2020 6:[address] [facility] [place] [address] TAY THOMAS :1955 Visit Time:07/30/2020 What to do next Your Diagnosis Calculus of ureter, Calculus of ureter Instructions From Your Care Team Diet after Discharge: Resume usual diet as tolerated, Do not drink any alcoholic beverages, Drink at least 8-10 glasses of water per day Activity after Discharge: As tolerated, Rest and relax today, No strenuous activity Lifting Restrictions: No heavy lifting over 10 pounds Driving after Discharge: Do not drive until 24 hours after no longer taking pain medications Showering/Bathing: May shower, No tub bathing, soaking or swimming Notify Provider of: signs of infection, fever greater [id number], chills. unable to pass urine Follow-Up Appointments Follow Up with VLAD LEPE When Within 2 to 3 days Comments Call for follow up appointment Where: [address] [place] [address] [address] [place] [id number]- [facility] (1) Medications What How Much When Instructions Next Dose allopurinol (allopurinol 300 mg oral tablet) 1 Tablet(s) Oral Every Day aspirin 81 Milligram(s) Oral Every Day atorvastatin (atorvastatin 10 mg oral tablet) Oral Every Day ferrous sulfate (ferrous sulfate 325 mg (65 mg elemental iron) oral delayed release tablet) 1 Tablet(s) Oral Every Day levothyroxine (Synthroid) 75 Microgram(s) Oral Every Day lisinopril 20 Milligram(s) Oral Every Day multivitamin with minerals (Centrum) 1 Tablet(s) Oral Every Day omega-3 polyunsaturated fatty acids (Fish Oil 500 mg oral capsule) 1 Capsule(s) Oral Every Day vitamin E 400 International Units Oral Every Day zinc sulfate (zinc sulfate 66 mg oral tablet) 1 Tablet(s) Oral Every Day Take your medications faithfully. [...] Please dispose of unused and medications per pharmacy guidance. Education Materials Laser Therapy for Kidney Stones, Care After This sheet gives you information about how to care for yourself after your procedure. Your health care provider may also give you more specific instructions. If you have problems or questions, contact your health care provider. What can I expect after the procedure? After the procedure, it is common to have: ??? Pain. ??? A burning sensation while urinating. ??? Small amounts of blood in your urine. ??? A need to urinate frequently. ??? Pieces of kidney stone in your urine. ??? Mild discomfort when urinating that may be felt in the back. You may experience this if you have a flexible tube (stent) in your ureter. Follow these instructions at home: Medicines ??? Take odhz-dma-vtxsldf and prescription medicines only as told by your health care provider. ??? If you were prescribed an antibiotic medicine, take it as told by your health care provider. Do not stop taking the antibiotic even if you start to feel better. ??? Ask your health care provider if the medicine prescribed to you: ? Requires you to avoid driving or using heavy machinery. ? Can cause constipation. You may need to take actions to prevent or treat constipation, such as: ? Take rgcj-kos-dvjoggy or prescription medicines. ? Eat foods that are high in fiber, such as beans, whole grains, and fresh fruits and vegetables. ? Limit foods that are high in fat and processed sugars, such as fried or sweet foods. Activity ??? Return to your normal activities as told by your health care provider. Ask your health care provider what activities are safe for you. ??? Do not drive for 24 hours if you were given a sedative during your procedure. General instructions ??? If your health care provider approves, you may take a warm bath to ease discomfort and burning. ??? Drink enough fluid to keep your urine pale yellow. Your health care provider may recommend drinking two 8 oz (237 mL) glasses of water per hour for a few hours after your procedure. ??? You may be asked to strain your urine to collect any stone fragments that you pass. These fragments may be tested. ??? Keep all follow-up visits as told by your health care provider. This is important. If you have a stent, you will need to return to your health care provider to have the stent removed. Contact a health care provider if you: ??? Have pain or a burning feeling that lasts more than 2 days. ??? Feel nauseous. ??? Vomit more and more often. ??? Have difficulty urinating. ??? Have pain that gets worse or does not get better with medicine. Get help right away if: ??? You are unable to urinate, even if your bladder feels full. ??? You have: ? Bright red blood or blood clots in your urine. ? More blood in your urine. ? Severe pain or discomfort. ? A fever or shaking chills. ? Abdominal pain. ? Difficulty breathing. ? Swelling in your legs. Summary ??? After the procedure, it is common to have a burning sensation while urinating and small amounts of blood in your urine. ??? Take urol-jae-rwcmwra and prescription medicines only as told by your health care provider. ??? Drink enough fluid to keep your urine pale yellow. ??? Keep all follow-up visits as told by your health care provider. This is important. This information is not intended to replace advice given to you by your health care provider. Make sure you discuss any questions you have with your health care provider. Document Revised: 10/14/2018 Document Reviewed: 10/14/2018 [employer] Patient Education ?? 2020 [employer]. Outpatient Surgery, Adult, Care After These instructions provide you with information about caring for yourself after your procedure. Your health care provider may also give you more specific instructions. Your treatment has been planned according to current medical practices, but problems sometimes occur. Call your health care provider if you have any problems or questions after your procedure. What can I expect after the procedure? After the procedure, it is common to have: ??? Tenderness and numbness at the surgical site. ??? Swelling and bruising around the surgical site. ??? Nausea. Follow these instructions at home: For at least 24 hours after the procedure: ??? Have a responsible adult stay with you. It is important to have someone help care for you until you are awake and alert. ??? Rest as needed. ??? Do not: ? Participate in activities in which you could fall or become injured. ? Drive. ? Use heavy machinery. ? Drink alcohol. ? Take sleeping pills or medicines that cause drowsiness. ? Make important decisions or sign legal documents. ? Take care of children on your own. Activity ??? Return to your normal activities as told by your health care provider. Ask your health care provider what activities are safe for you. ??? Do not lift anything that is heavier than 10 lb (4.5 kg), or the limit that your health care provider tells you, until your health care provider says it is okay. ??? Do not play contact sports until your health care provider says it is okay. Incision care ??? Follow instructions from your health care provider about how to take care of an incision, if you have one. Make sure you: ? Wash your hands with soap and water before you change your bandage (dressing). If soap and water are not available, use hand welder machine operator. ? Change your dressing as told by your health care provider. ? Leave stitches (sutures), skin glue, or adhesive strips in place. These skin closures may need to stay in place for 2 weeks or longer. If adhesive strip edges start to loosen and curl up, you may trim the loose edges. Do not remove adhesive strips completely unless your health care provider tells you to do that. ??? Check your incision area every day for signs of infection. Check for: ? More redness, swelling, or pain. ? More fluid or blood. ? Warmth. ? Pus or a bad smell. Medicines ??? Take ihrl-zee-ycvowpt and prescription medicines only as told by your health care provider. ??? Do not drive or use heavy machinery while taking prescription pain medicines. Eating and drinking ??? Follow the diet recommended by your health care provider. ??? When you are hungry, begin eating light and bland foods such as toast. Gradually return to your regular diet. ??? If you vomit: ? Drink water, juice, or soup when you can drink without vomiting. ? Make sure you have little or no nausea before eating solid foods. General instructions ??? If you have sleep apnea, surgery and certain medicines can increase your risk for breathing problems. Follow instructions from your HCP about wearing your sleep device: ? Anytime you are sleeping, including during daytime naps. ? While taking prescription pain medicines, sleeping medicines, or medicines that make you drowsy. ??? Do not use any tobacco products, such as cigarettes, chewing tobacco, and e-cigarettes, for as long as possible. ??? If you smoke, do not smoke without supervision. ??? Keep all follow-up visits as told by your health care provider. This is important. Contact a health care provider if: ??? You have more redness, swelling, or pain around your incision. ??? You have more fluid or blood coming from your incision. ??? Your incision feels warm to the touch. ??? You have pus or a bad smell coming from your incision. ??? You have a fever. ??? You feel light-headed or you faint. ??? You develop a rash. ??? You keep feeling nauseous or keep vomiting. ??? You have very bad pain, even after taking the medicines your health care provider has prescribed or recommended. ??? You have constipation. Get help right away if: ??? You are unable to pass urine. ??? You have trouble breathing. Summary ??? Have a responsible adult stay with you for at least 24 hours after the procedure. ??? Nausea is common after a procedure. Make sure you have little or no nausea before eating solid foods. Follow the diet recommended by your health care provider. ??? Ask your health care provider what activities are safe for you. This information is not intended to replace advice given to you by your health care provider. Make sure you discuss any questions you have with your health care provider. Document Revised: 05/03/2018 Document Reviewed: 05/25/2016 [employer] Patient Education ?? 2020 [employer] Ureteroscopy Ureteroscopy is a procedure to check for and treat problems inside part of the urinary tract. In this procedure, a thin, tube-shaped instrument with a light at the end (ureteroscope) is used to look at the inside of the kidneys and the ureters, which are the tubes that carry urine from the kidneys to the bladder. The ureteroscope is inserted into one or both of the ureters. You may need this procedure if you have frequent urinary tract infections (UTIs), blood in your urine, or a stone in one of your ureters. A ureteroscopy can be done to find the cause of urine blockage in a ureter and to evaluate other abnormalities inside the ureters or kidneys. If stones are found, they can be removed during the procedure. Polyps, abnormal tissue, and some types of tumors can also be removed or treated. The ureteroscope may also have a tool to remove tissue to be checked for disease under a microscope (biopsy). Tell a health care provider about: ??? Any allergies you have. ??? All medicines you are taking, including vitamins, herbs, eye drops, creams, and uglj-xvu-iregbyv medicines. ??? Any problems you or family members have had with anesthetic medicines. ??? Any blood disorders you have. ??? Any surgeries you have had. ??? Any medical conditions you have. ??? Whether you are or may be . What are the risks? Generally, this is a safe procedure. However, problems may occur, including: ??? Bleeding. ??? Infection. ??? Allergic reactions to medicines. ??? Scarring that narrows the ureter (stricture). ??? Creating a hole in the ureter (perforation). What happens before the procedure? Staying hydrated Follow instructions from your health care provider about hydration, which may include: ??? Up to 2 hours before the procedure ??? you may continue to drink clear liquids, such as water, clear fruit juice, black coffee, and plain tea. Eating and drinking restrictions Follow instructions from your health care provider about eating and drinking, which may include: ??? 8 hours before the procedure ??? stop eating heavy meals or foods such as meat, fried foods, or fatty foods. ??? 6 hours before the procedure ??? stop eating light meals or foods, such as toast or cereal. ??? 6 hours before the procedure ??? stop drinking milk or drinks that contain milk. ??? 2 hours before the procedure ??? stop drinking clear liquids. Medicines ??? Ask your health care provider about: ? Changing or stopping your regular medicines. This is especially important if you are taking diabetes medicines or blood thinners. ? Taking medicines such as aspirin and ibuprofen. These medicines can thin your blood. Do not take these medicines before your procedure if your health care provider instructs you not to. ??? You may be given antibiotic medicine to help prevent infection. General instructions ??? You may have a urine sample taken to check for infection. ??? Plan to have someone take you home from the hospital or clinic. What happens during the procedure? To reduce your risk of infection: ? Your health care team will wash or sanitize their hands. ? Your skin will be washed with soap. ??? An IV tube will be inserted into one of your veins. ??? You will be given one of the following: ? A medicine to help you relax (sedative). ? A medicine to make you fall asleep (general anesthetic). ? A medicine that is injected into your spine to numb the area below and slightly above the injection site (spinal anesthetic). ??? To lower your risk of infection, you may be given an antibiotic medicine by an injection or through the IV tube. ??? The opening from which you urinate (urethra) will be cleaned with a germ-killing solution. ??? The ureteroscope will be passed through your urethra into your bladder. ??? A salt-water solution will flow through the ureteroscope to fill your bladder. This will help the health care provider see the openings of your ureters more clearly. ??? Then, the ureteroscope will be passed into your ureter. ? If a growth is found, a piece of it may be removed so it can be examined under a microscope (biopsy). ? If a stone is found, it may be removed through the ureteroscope, or the stone may be broken up using a laser, shock waves, or electrical energy. ? In some cases, if the ureter is too small, a tube may be inserted that keeps the ureter open (ureteral stent). The stent may be left in place for 1 or 2 weeks to keep the ureter open, and then the ureteroscopy procedure will be performed. ??? The scope will be removed, and your bladder will be emptied. The procedure may vary among health care providers and hospitals. What happens after the procedure? Your blood pressure, heart rate, breathing rate, and blood oxygen level will be monitored until the medicines you were given have worn off. ??? You may be asked to urinate. ??? Do not drive for 24 hours if you were given a sedative. This information is not intended to replace advice given to you by your health care provider. Make sure you discuss any questions you have with your health care provider. Document Revised: 01/15/2018 Document Reviewed: 11/14/2016 [employer] Patient Education ?? 2020 [employer]. Emergency Awareness and Preventative Care STROKE is [...] Assistance with quitting is available by contacting 7-318-MXQL-NOW. This is a free resource providing counseling, [...] This Visit (last charted value for your 07/30/2020 visit) No Laboratory or Other Results This Visit Patient Name:TAY THOMAS I have received this information and was given the opportunity to ask questions. Patient/Loss Prevention Leader Name: Patient/Loss Prevention Leader Signature: Relationship to Patient: Clinician/Hospital Loss Prevention Leader Signature: Date: documented in this encounter Plan of Treatment Not on file documented as of this encounter Visit Diagnoses Not on filedocumented in this encounter Care Teams Director Of Institutional Research Relationship Specialty Start Date End Date Emily Estrada [address] [place] [address] [facility] [id number] PCP - General 05/14/22 06/09/24 [facility], Provider Not In The System, [place] [address] PCP - General 07/18/24 Lolita Belcher [address] [facility], [address] [place] [address] Advanced Registered Nurse Practitioner Primary Care 06/10/24 documented as of this encounter
--- OUTSIDE RECORDS SUMMARY | 2024-08-08 10:54 | XMS_ITS | Encounter Summary ---
Author Organization [employer] Address [address] [place] [address] Care Team Providers Care Cranberry Farm Supervisor Name Role Phone Emily Estrada Primary Care Provider Unavail able [facility], Provider Not In The System Primary Care Provider Unavailable Encounter Details Date Type Department Care Team (Late st Contact Info) Description 06/18/2021 Transcribed Document [facility] [place] [facility] [place] [address] ProviderJodie MD [address] [place] [address] Social History Tobacco Use Types Packs/Day Years Used Date Smoking Tobacco: Never Assessed Sex and Gender Information Value Date Recorded Sex Assigned at Not on file Legal Sex Male 4:10 PM CDT Gender Identity Not on file Sexual Orientation Straight 05/21/2022 1: 57 PM CDT documented as of this encounter Miscellaneous Notes * Cerner Conversion Note - Historical ProviderMD - 06/18/2021 9:18 AM CDT Pain Assessment Entered On: 06/18/2021 10:15 EDT Performed On: 06/18/2021 10:15 EDT by EL SIMMS RN Intervention Information: HYDROmorphone Performed by EL SIMMS RN on 06/18/2021 09:24:00 EDT HYDROmorphone,1mg IV Push,Peripheral Line 1 Pain Assessment Pain Assessment : Follow-up assessment Pain Scale Used : FACES EL SIMMS RN - 06/18/2021 10:15 EDT Pain Scale Intensity : 3 EL SIMMS RN - 06/18/2021 10:15 EDT Image 4 - Images currently included in the form version of this document have not been included in the text rendition version of the form. documented in this encounter Plan of Treatment Not on file documented as of this encounter Visit Diagnoses Not on filedocumented in this encounter Care Teams [employer]berry [employer] Supervisor Relationship Specialty Start Date End Date Emily Estrada [address] [place] [id number] PCP - General 05/14/22 06/09/24 [facility], Provider Not In The System, [place] [address] PCP - General 07/18/24 Lolita Belcher [address] [place] [address], [address] [place] [address] Advanced Registered Nurse Practitioner Primary Care 06/10/24 documented as of this encounter
--- OUTSIDE RECORDS SUMMARY | 2024-08-08 10:54 | XMS_ITS | Encounter Summary ---
Author Organization [employer] Address [address] [place] [address] Care Team Providers Care Scarfer Name Role Phone Emily Estrada Primary Care Provider Unavail able [facility], Provider Not In The System Primary Care Provider Unavailable Encounter Details Date Type Department Care Team (Late st Contact Info) Description 06/18/2021 Transcribed Document [facility] Family Medicine [facility] [place] [address] ProviderJodie MD [address] [place] [address] Social History Tobacco Use Types Packs/Day Years Used Date Smoking Tobacco: Never Assessed Sex and Gender Information Value Date Recorded Sex Assigned at Not on file Legal Sex Male 4:10 PM CDT Gender Identity Not on file Sexual Orientation Straight 05/21/2022 1: 57 PM CDT documented as of this encounter Miscellaneous Notes * Cerner Conversion Note - Historical ProviderMD - 06/18/2021 9:19 AM CDT Patient: TAY THOMAS Age: 65 years Sex: Male : 1955 Associated Diagnoses: Kidney stone Author: GALA AVILA APR Basic Information Time seen: Immediately upon arrival. History source: Patient. Arrival mode: Private vehicle. History limitation: None. Additional information: Chief Complaint from Nursing Triage Note : Chief Complaint 06/18/2021 8:36 EDT Chief Complaint to ed with c/o right flank pain. At [facility] yesterday and was told that he had multiple kidney stones. He has had to have several stents. . History of Present Illness Patient presents to the ER with complaints of recurrent flank pain. Patient states that his back kind of started hurting last weekend. Patient has a history of kidney stones and states he is never able to pass them. Patient states that he was at [facility] ER last night and given pain medicine but the pain is so bad he cannot control it. Patient is normally followed by Dr. Kareem Lepe. Patient states that he has had some chills this morning but he thinks is all because of the pain patient is alert and in no acute distress at this time Review of Systems Constitutional symptoms: Negative except as documented in HPI. Respiratory symptoms: Negative except as documented in HPI. Cardiovascular symptoms: Negative except as documented in HPI. Gastrointestinal symptoms: Abdominal pain, right flank, acute, sharp, pain. Genitourinary symptoms: Negative except as documented in HPI. Musculoskeletal symptoms: Back pain. Neurologic symptoms: Negative except as documented in HPI. Psychiatric symptoms: Negative except as documented in HPI. Endocrine symptoms: Negative except as documented in HPI. Hematologic/Lymphatic symptoms: Negative except as documented in HPI. Allergy/immunologic symptoms: Negative except as documented in HPI. Health Status Allergies: Allergic Reactions (Selected) Severity Not Documented Flomax- Flushing.. Medications: (Selected) Inpatient Medications Ordered Centrum: 1 Tab, Oral, Daily Dilaudid: 1 mg, IV Push, 1-Time Fish Oil: 1,000 mg, Oral, Daily Normal Saline Bolus: 1,000 mL, 1,000 mL/Hr, IV Piggyback, 1-Time Normal Saline Flush: 10 mL, IV Push, 1-Time Synthroid: 75 mcg, Oral, Daily Zofran: 8 mg, IV Push, 1-Time allopurinol: 300 mg, Oral, Daily aspirin: 81 mg, Oral, Daily ferrous sulfate: 325 mg, Oral, Daily ferrous sulfate: 325 mg, Oral, Daily lisinopril: 20 mg, Oral, Daily vitamin E: 400 Units, Oral, Daily zinc sulfate: 220 mg, Oral, Daily Documented Medications Documented Centrum: 1 Tab, Oral, Daily, 0 Refill(s) Fish Oil 500 mg oral capsule: 1 Cap, Oral, Daily, 0 Refill(s) Synthroid: 75 mcg, Oral, Daily, 0 Refill(s) allopurinol 300 mg oral tablet: 1 Tab, Oral, Daily, 60 Tab, 0 Refill(s) aspirin: 81 mg, Oral, Daily, 0 Refill(s) atorvastatin 10 mg oral tablet: Tab, Oral, Daily, 0 Refill(s) ferrous sulfate 325 mg (65 mg elemental iron) oral delayed release tablet: 1 Tab, Oral, Daily, 0 Refill(s) lisinopril: 20 mg, Oral, Daily, 0 Refill(s) vitamin E: 400 Int Units, Oral, Daily, 0 Refill(s) zinc sulfate 66 mg oral tablet: 1 Tab, Oral, Daily, 100 Tab, 0 Refill(s). Past Medical/ Family/ Social History Surgical history: Lithotripsy in 2019 at 63 Years. Cholecystectomy ([id number]) in 2017 at 61 Years. Thyroidectomy in 2010 at 55 Years. Rotator cuff repair of right shoulder ([id number]) in 2010 at 55 Years. Cyst removal from right ankle. Right rotator cuff repair., Reviewed as documented in chart. Family history: No family history items have been selected or recorded., Reviewed as documented in chart. Social history: Social & Psychosocial Habits Alcohol 12/28/2018 Alcohol Use History, Social Habits Yes Total Drinks Per Week 5 Alcohol Use in Last Twelve Months Yes 07/30/2020 Days Per Week of Alcohol Use 1 Total Drinks Per Week 1 Alcohol Use in Last Twelve Months Yes Alcohol Use Frequency Weekly Substance Abuse 12/11/2016 Recreational Drug Use History No Recreational Drug Use Last 12 Months No Tobacco 12/11/2016 Smoking Status Current every day smoker Smoking Frequency Within Last 30 Days Cigars/pipes daily Tobacco Use Within Last Twelve Months Cigars Years of Tobacco Use 10 , Reviewed as documented in chart. Problem list: Active Problems (9) Arthritis At risk for sleep apnea GERD Gout Hyperlipidemia Hypertension Myocardial infarction x2 Smoker - cigars Thyroid cancer , per nurse's notes. Physical Examination Vital Signs Vital Signs/Vital Measures 06/18/2021 8:56 EDT Oxygen Therapy Mode Room air 06/18/2021 8:36 EDT Systolic Blood Pressure 172 mmHg HI Diastolic Blood Pressure 95 mmHg HI Temperature Source Oral Temperature Mode Fahrenheit Temperature, Fahrenheit 98.2 Deg F Clinical Temperature, C 36.8 Deg C Peripheral Pulse Rate 76 bpm Respiratory Rate 18 Breaths/Min Oxygen Saturation 99 % Oxygen Therapy Mode Room air . Measurements 06/18/2021 8:36 EDT Height Source Stated Height Entry Format Coos Height/Length, BRUNEIAN (ft) 6 ft Height/Length BRUNEIAN 1 Inch CLINICALHEIGHT 185.42 cm [place] Body Weight 78.88 kg Weight Source, ED Critical estimated dosing weight Weight Entry Format Coos Weight Ukrainian lb 240 lb CLINICALWEIGHT 109.09 kg Body Surface Area (BSA) 2.33 m2 Body Mass Index 31.7 kg/m2 HI . Oxygen Saturation 06/18/2021 8:36 EDT Oxygen Saturation 99 % . General: Alert, no acute distress. Skin: Warm, pink, intact. Cardiovascular: Regular rate and rhythm. Respiratory: Lungs are clear to auscultation, respirations are non-labored. Gastrointestinal: Soft, Non distended, Tenderness: Mild, right flank. Musculoskeletal: Normal ROM. Neurological: Alert and oriented to person, place, time, and situation. Psychiatric: Cooperative. Medical Decision Making Differential Diagnosis: Renal stone, ureteral stone, urinary tract infection, pyelonephritis. Orders Include Previous Orders (Selected) Inpatient Orders Ordered Dilaudid: 1 mg, IV Push, 1-Time ED Fall Risk Documented: Normal Saline Bolus: 1,000 mL, 1,000 mL/Hr, IV Piggyback, 1-Time Normal Saline Flush: 10 mL, IV Push, 1-Time Saline Lock Insert: Zofran: 8 mg, IV Push, 1-Time Ordered (Dispatched) Urinalysis UA Rflx Microscopic Cult if Ind: Ordered (Exam Ordered) CT Abdomen Pelvis WO: Ordered (In-Lab) CMP Comprehensive Metabolic Panel: Completed .Automated Differential: Broset Violence Assessment: CBC w/ Auto Diff: ED Adult Fall Risk Assessment: ED Adult Triage: ED C-SSRS: ED Clinical Reconciliation: ED process maintenance technician: Lipase Level: Normal Saline Flush: 10 mL, IV Push, See Comment Saline Lock Insert: . Results review: Lab results : Lab Results 06/18/2021 8:45 EDT Sodium Level 135 mmol/L LOW Potassium Level 4.6 mmol/L Chloride Level 102 mmol/L Carbon Dioxide Level 27 mmol/L Anion Gap 11 Glucose Level 115 mg/dL HI Blood Urea Nitrogen 15 mg/dL Creatinine Level 1.00 mg/dL eGFR >60 mL/min/1.73m2 eGFR NonAfrican >60 mL/min/1.73m2 Bun/Creatinine 15.0 Calcium Level 9.7 mg/dL Protein Total 8.5 Gram/dL HI Albumin Level 4.3 Gram/dL Globulin 4.2 Gram/dL A/G Ratio 1.0 LOW Bilirubin Total 0.4 mg/dL Alk Phos 142 Units/Liter HI AST 49 Units/Liter HI ALT 73 Units/Liter HI Lipase Level 136 Units/Liter WBC 8.1 K/uL RBC 4.57 Million/uL Hgb 14.6 g/dL Hct 43.7 % MCV 95.6 fL HI MCH 31.9 pg MCHC 33.4 Gram/dL Platelet Count 260 K/uL MPV 9.8 fL RDW 12.4 % Neut % 64.0 % Neut # 5.21 K/uL Lymph % 21.5 % Lymph # 1.75 x10(3)/uL [place] % 11.5 % HI [place] # 0.94 K/uL Eos % 1.6 % Eos # 0.13 x10(3)/uL Baso % 1.0 % Baso # 0.08 x10(3)/uL Slide Review No IG# 0.03 x10(3)/uL IG% 0.40 % . Radiology results: Radiology Results (Last 48 hours) [id number] -- 06/18/2021 08:27 CT Abdomen Pelvis WO (06/18/2021 09:49) Result: [...] agree with the above final transcribed report. . Impression and Plan Diagnosis Kidney stone - Discharge, Emergency medicine, Medical Calls-Consults - 06/18/2021 11:33:00 , KAREEM LEPE MD-URO. - 06/18/2021 11:33:00 , MARIA C MURILLO MD. Plan Condition: Stable. Disposition: Admit Admit/Transfer/Discharge: Place in Observation (Order): Start: 06/18/2021 11:35 EDT, Observation Reason: kidney stones, Unit type: Med-Surg, Admitting: MARIA C MURILLO MD. Counseled: Patient, Regarding diagnosis, Regarding diagnostic results, Regarding treatment plan, Regarding prescription, Patient indicated understanding of instructions. documented in this encounter Plan of Treatment Not on file documented as of this encounter Visit Diagnoses Not on filedocumented in this encounter Care Teams Scarfer Relationship Specialty Start Date End Date Emily Estrada [address] [phone] PCP - General 05/14/22 06/09/24 [facility], Provider Not In The System, [place] [address] PCP - General 07/18/24 Lolita Belcher [address], [address] [place] [address] Advanced Registered Nurse Practitioner Primary Care 06/10/24 documented as of this encounter
--- OUTSIDE RECORDS SUMMARY | 2024-08-08 10:54 | XMS_ITS | Encounter Summary ---
Author Organization [employer] Address [address] [place] [address] Care Team Providers Care Dry Folder Cloth Name Role Phone Emily Estrada Primary Care Provider Unavail able [facility], Provider Not In The System Primary Care Provider Unavailable Encounter Details Date Type Department Care Team (Late st Contact Info) Description 06/19/2021 Transcribed Document [facility] Family Medicine [place] [address] ProviderJodie MD [address] [place] [address] Social History Tobacco Use Types Packs/Day Years Used Date Smoking Tobacco: Never Assessed Sex and Gender Information Value Date Recorded Sex Assigned at Not on file Legal Sex Male 4:10 PM CDT Gender Identity Not on file Sexual Orientation Straight 05/21/2022 1: 57 PM CDT documented as of this encounter Miscellaneous Notes * Cerner Conversion Note - Historical ProviderMD - 06/19/2021 3:42 PM CDT Nursing Discharge Summary Entered On: 06/19/2021 15:45 EDT Performed On: 06/19/2021 15:42 EDT by Maricarmen Dominguez RN-[facility] Discharge Documentation Discharge Instructions Reviewed With, Opportunity For Questions Given : Patient, Spouse Patient Education Completed : Yes Teaching Method : Explanation, Printed materials, Teach back method Teaching Evaluation : Verbalizes understanding Education Comment : Pt uninterested in education and refusing all treatments. room secured for teaching, present, consented to teaching. Instructed on condition, medication, diet,activity and followup appointment Maricarmen Dominguez, [employer] - 06/19/2021 15:42 EDT Electronically signed by Jane, [facility] Conversion Residential Sales Manager Cerner at 06/03/2022 10:35 PM CDT documented in this encounter Plan of Treatment Not on file documented as of this encounter Visit Diagnoses Not on filedocumented in this encounter Care Teams Dry Folder Cloth Relationship Specialty Start Date End Date Emily Estrada [address] [place] [phone] PCP - General 05/14/22 06/09/24 [facility], Provider Not In The System, [place] [address] PCP - General 07/18/24 Lolita Belcher [address], [address] [address] Advanced Registered Nurse Practitioner Primary Care 06/10/24 documented as of this encounter
--- OUTSIDE RECORDS SUMMARY | 2024-08-08 10:54 | XMS_ITS | Encounter Summary ---
Author Organization [employer] Address [address] [place] [address] Care Team Providers Care Hollow Handle Bench Worker Name Role Phone Emily Estrada Primary Care Provider Unavail able [facility], Provider Not In The System Primary Care Provider Unavailable Encounter Details Date Type Department Care Team (Late st Contact Info) Description 07/30/2020 Transcribed Document [facility] Family Medicine [facility] [place] [address] ProviderJodie MD [address] [place] [address] Social History Tobacco Use Types Packs/Day Years Used Date Smoking Tobacco: Never Assessed Sex and Gender Information Value Date Recorded Sex Assigned at Not on file Legal Sex Male 4:10 PM CDT Gender Identity Not on file Sexual Orientation Straight 05/21/2022 1: 57 PM CDT documented as of this encounter Miscellaneous Notes * Cerner Conversion Note - Historical ProviderMD - 07/30/2020 8:14 PM CDT DATE OF PROCEDURE: 07/30/2020 SURGEON: Kareem Young MD PREOPERATIVE DIAGNOSIS: Right mid ureteral stone. POSTOPERATIVE DIAGNOSIS: Right mid ureteral stone. PROCEDURE: Cystoscopy with right ureteroscopy, laser of ureteral stone, right ureteral stent placement. ANESTHESIA: General. DRAINS: 4.8 x 28 right ureteral stent, string attached. BRIEF HISTORY: The patient has a long history of urolithiasis. He presented to my office earlier today after discharge from [facility] secondary to a 7 mm stone in proximal right ureter. He has a long history of stones and multiple interventions regarding the stones. He had refractory pain and we made arrangements for intervention today. He was brought to the operating room for ureteroscopy and laser of stone. He has additional smaller stones, all of which looked to be passable. DESCRIPTION OF PROCEDURE: After satisfactory general anesthesia, he was carefully placed in lithotomy position. Genitals were prepped and draped in normal fashion. The 21-Telugu cystoscopy sheath was introduced under direct vision with a 30-degree lens. Urethra appeared normal. Prostate enlarged with trilobar hypertrophy and moderate-sized median lobe. Upon entering the bladder, there was no stones within the bladder. Right ureteral orifice was visualized. Fluoroscopically, the calcification was noted at the mid ureteral area. He also had a calcification down his right pelvis, which proved to be a sleeve related after passage of the 0.035 ZIPwire up to the stone. The stone seemed somewhat impacted as the wire did not want to go easily passed, and therefore a 5-Telugu open-ended ureteral catheter was placed over the wire just below the stone and then the ZIPwire easily advanced around the stone and appeared to follow the contour of the collecting system. Following this, the cystoscope was withdrawn and semirigid ureteroscope introduced. With the aid of a 0.035 Sensor wire, the transmural ureter was dilated and the scope easily advanced up to the stone. There, 200-micron fiber was used at 10 sidhu to fragment into tiny pieces. Significant portion went back to the renal pelvis, and the Sensor wire was passed through the rigid scope. The flexible ureteroscope was then easily advanced up to the renal pelvis, where the stone was found and completely pulverized down to a millimeter or less fragments. The scope was then slowly withdrawn. The stent was placed over the wire. There was a nice coil in the kidney and coil in the bladder. Bladder was emptied with the cystoscope. String was secured to the penis with Tegaderm. Xylocaine jelly instilled in urethra. He was awakened, extubated, transferred to postop recovery room in stable condition. He will remove his stent in 72 hours. /[id number] MD MARSHA Vo/ANNA / TDA / MODL /[id number] CC: Dr. Lalo Yougn MD Electronically signed by Interface, [facility] Conversion Bank Manager Cerner at 06/03/2022 10:53 PM CDT documented in this encounter Plan of Treatment Not on file documented as of this encounter Visit Diagnoses Not on filedocumented in this encounter Care Teams Hollow Handle Bench Worker Relationship Specialty Start Date End Date Emily Estrada [address] [place] [phone] PCP - General 05/14/22 06/09/24 [facility], Provider Not In The System, [place] [address] PCP - General 07/18/24 Lolita Belcher [address], [address] [place] [address] Advanced Registered Nurse Practitioner Primary Care 06/10/24 documented as of this encounter
--- OUTSIDE RECORDS SUMMARY | 2024-08-08 10:54 | XMS_ITS | Encounter Summary ---
Author Organization [employer] Address [address] [place] [address] Care Team Providers Care Loan Services Professional Name Role Phone Emily Estrada Primary Care Provider Unavail able [facility], Provider Not In The System Primary Care Provider Unavailable Encounter Details Date Type Department Care Team (Late st Contact Info) Description 06/18/2021 Transcribed Document [facility] [place] [facility] [place] [address] ProviderJodie MD [address] [place] [address] Social History Tobacco Use Types Packs/Day Years Used Date Smoking Tobacco: Never Assessed Sex and Gender Information Value Date Recorded Sex Assigned at Not on file Legal Sex Male 4:10 PM CDT Gender Identity Not on file Sexual Orientation Straight 05/21/2022 1: 57 PM CDT documented as of this encounter Miscellaneous Notes * Cerner Conversion Note - Historical ProviderMD - 06/18/2021 5:53 PM CDT DATE OF CONSULTATION: 06/18/2021 REASON FOR CONSULTATION: Urolithiasis with back pain. BRIEF HISTORY: The patient is a 65-year-old gentleman, known to me for previous history of urolithiasis requiring intervention. One week ago, he began having bilateral lower flank pain, now concentrating more on the right side. At that time, he had a CT scan at [facility] which showed some small bilateral stones, but no ureteral stones. His pain persisted and escalated up to a point where he was refractory to oral pain medication. He presented here for further evaluation. CT scan here shows a tiny 1 to 2 mm stone in lower pole of right kidney, three small 2 mm stones in the left kidney without any hydronephrosis or obstruction. No obvious ureteral stones were seen on his CT scan. His urinalysis actually is clear. He states that his pain continues to feel as if it is a stone similar to previous stones. He has had nausea, but no emesis. He has had no fever. Approximately one week ago, he had a stress test with apparent nuclear study. He had been on Flomax for obstructive symptoms, but this was discontinued as he was having hypotension. He states he continues to void with notable slowing of urination, but no pain with urination. His creatinine at presentation was 1.0. IMPRESSION: History of urolithiasis with nonobstructing stones on recent CT scan. I suggest we obtain a CT scan with IV contrast for further evaluation of his abdomen and renal parenchyma. I see no indication for cystoscopy and ureteroscopy tonight. It is important to continue with straining of urine. /[id number] Kareem Young MD TDA/AQ / TDA / MODL /[id number] documented in this encounter Plan of Treatment Not on file documented as of this encounter Visit Diagnoses Not on filedocumented in this encounter Care Teams Loan Services Professional Relationship Specialty Start Date End Date Emily Estrada [address] [phone] PCP - General 05/14/22 06/09/[address] [facility], Provider Not In The System, [place] [address] PCP - General 07/18/24 Lolita Belcher [address] [place] [address] [place] [address], [address] [place] [address] Advanced Registered Nurse Practitioner Primary Care 06/10/24 documented as of this encounter
--- OUTSIDE RECORDS SUMMARY | 2024-08-08 10:54 | XMS_ITS | Encounter Summary ---
Author Organization [employer] Address [address] [place] [address] Care Team Providers Care Stage Producer Name Role Phone Emily Estrada Primary Care Provider Unavail able [facility], Provider Not In The System Primary Care Provider Unavailable Encounter Details Date Type Department Care Team (Late st Contact Info) Description 06/19/2021 Transcribed Document [facility] [place] [address] ProviderJodie MD [address] [place] [address] Social History Tobacco Use Types Packs/Day Years [...] Historical ProviderMD - 06/19/2021 3:42 PM CDT Final Discharge Planning Entered On: 06/19/2021 15:42 EDT Performed On: 06/19/2021 15:42 EDT by YOCASTA GLASS, RN - Lollypop Machine Operator Final Discharge Planning Discharge Arrangements : Patient Post-Acute Information Patient Name: TAY THOMAS Gender: Male : [birth year] Age: 65 Years No Post-Acute Placement(s) Listed No Post-Acute Service(s) Listed No [place] Referral(s) Listed Transportation Needs : Family/Friend Discharge Transportation Arrangement Cmt : Follow Up Appointment Scheduled : Yes Is Patient Ready for Discharge? : Yes Physician Notified Patient is Ready for Discharge? : Yes Discharge To Care Management : Home/Residential/Jail or Self Care -01 YOCASTA GLASS, RN - Lollypop Machine Operator - 06/19/2021 15:42 EDT Electronically signed by Denia Lara Conversion Equipment Installation Professional Cerner at 06/03/2022 10:30 PM CDT documented in this encounter Plan of Treatment Not on file documented as of this encounter Visit Diagnoses Not on filedocumented in this encounter Care Teams Stage Producer Relationship Specialty Start Date End Date Emily Estrada [address] [place] [phone] PCP - General 05/14/22 06/09/24 [facility], Provider Not In The System, [place] [address] PCP - General 07/18/24 Lolita Belcher [address], [address] [address] Advanced Registered Nurse Practitioner Primary Care 06/10/24 documented as of this encounter
--- OUTSIDE RECORDS SUMMARY | 2024-08-08 10:54 | XMS_ITS | Encounter Summary ---
Author Organization [employer] Address [address] [place] [address] Care Team Providers Care Cigar Packer And Shader Name Role Phone Emily Estrada Primary Care Provider Unavail able [facility], Provider Not In The System Primary Care Provider Unavailable Encounter Details Date Type Department Care Team (Late st Contact Info) Description 06/19/2021 Transcribed Document [facility] [place] [address] ProviderJodie MD [address] [place] [address] Social History Tobacco Use Types Packs/Day Years Used Date Smoking Tobacco: Never Assessed Sex and Gender Information Value Date Recorded Sex Assigned at Not on file Legal Sex Male 4:10 PM CDT Gender Identity Not on file Sexual Orientation Straight 05/21/2022 1: 57 PM CDT documented as of this encounter Miscellaneous Notes * Cerner Conversion Note - Historical ProviderMD - 06/19/2021 5:00 AM CDT Chart Check - Review Order Profile Entered On: 06/19/2021 6:31 EDT Performed On: 06/19/2021 5:00 EDT by Melinda Donaldson, RN Chart Check Powerplans Initiated/Discontinued as Appropriate : Yes All Active Orders Reviewed : Yes Melinda Donaldson RN - 06/19/2021 6:31 EDT documented in this encounter Plan of Treatment Not on file documented as of this encounter Visit Diagnoses Not on filedocumented in this encounter Care Teams Cigar Packer And Shader Relationship Specialty Start Date End Date Emily Estrada [address] [facility] [address] [place] [address] PCP - General 05/14/22 06/09/24 [facility], Provider Not In The System, [place] [address] PCP - General 07/18/24 Lolita Belcher [address] [place] [address] [facility], [address] [place] [id number] Advanced Registered Nurse Practitioner Primary Care 06/10/24 documented as of this encounter
--- OUTSIDE RECORDS SUMMARY | 2024-08-08 10:54 | XMS_ITS | Clinical Summary ---
Author Organization [facility] [email or web address] Address [address] [place] [address] Care Team Providers Care Cover Inspector Name Role Phone [facility], Provider Not In The System MD Primary Care Provider Unavailable Allergies Active Allergy Reactions Criticality Noted Date [...] daily with breakfast and dinner. 30 capsule 04/24/202 5 Active cefdinir (OMNICEF) 300 mg capsule [...] Date Resolved Date Lumbar herniated disc 05/03/20222022 Encounters Date Type Department Care Team Description 07/18/2024 10:41 PM EDT - 07/19/2024 2:16 AM EDT Emergency [facility] Emergency Department [address] [place] [address] Kareem Martel MD Right ureteral stone (Primary Dx); Renal colic on right side Discharge Disposition: Home or Self Care 07/18/2024 Travel 07/12/2024 1:38 PM EDT - 07/12/2024 11:59 PM EDT Hospital Encounter [facility] [address] [place] [address] [address] [place] [address] Shi Alvarenga PA Calculus of kidney Discharge Disposition: Home or Self Care 07/12/2024 Outside Orders [facility] [address] [place] [address] [address] [place] [address] Shi Alvarenga PA Calculus of kidney (Primary Dx) 06/09/2024 2:41 PM EDT Anesthesia Event [facility] Surgery Department [address] [place] [address] Abhay Barbour CRNA Qureshi, Muhammad, MD 06/09/2024 1:50 PM EDT - 06/09/2024 3:22 PM EDT Surgery [facility] Surgery Department [address] [place] [address] Kareem Young MD LITHOTRIPSY,EXTRACO RPOREAL SHOCK WAVE (ESWL) 06/08/2024 3:46 PM EDT - 06/10/2024 11:20 AM EDT Hospital Encounter [facility] Telemetry Unit [address] [place] [address] Shannan Andrea MD Discharge Disposition: Home or Self Care 06/08/2024 Travel from Last 3 Months Family History Medical History Relation Name Comments Heart disease Brother Stroke Brother Heart disease Father Heart disease Paternal Grandfather Relation Name Status Comments Brother Father Paternal Grandfather Social History Tobacco Use Types Packs/Day Years [...] harm? Never 06/08/2024 How often does anyone, inclu ding family and friends, scream or curse at [...] Do you speak a language other than [place]ian at [facility]? No 06/08/2024 Do you want help [...] 07/18/2024 10:45 PM EDT Plan of Treatment Health Maintenance Due Date Last Done Comments Medicare Initial AWV G0438 CT Colonography 1955 Colonoscopy 1955 Colorectal Cancer Screening 1955 FOBT/FIT 1955 Fit-DNA (Cologuard) 1955 Sigmoidoscopy 1953 Depression Screening (12+) 1965 Hepatitis C Screening 11/01/1971 DTAP/TDAP/TD VACCINES (1 - Tdap) 1972 Pneumococcal 50+ years (1 of 2 - PCV) 1972 Shingles Vaccine (Zoster) (1 of 2) 11/01/2003 Respiratory Syncytial Virus (RSV) Adult or (1 - Risk 60-74 years 1-dose series) 2013 COVID-19 VACCINE (3 - season) 2023, 05/05/2020 Falls Risk Screening 02/17/2024 Influenza Vaccine (Season Ended) 2024 Tobacco Cessation Counseling and Screening (12+) 07/18/2025 07/18/2024 Medical Devices Implanted Type Area Fashion Adviser Device Identifier Shelf Expiration Date Model / Serial / Lot Bone Vivigen Formable Cell 5cc Bl-1600-002 - [id number] Implanted:Qty : 1 on 05/03/2022 by Edson Barfield MD at [facility] IMPLANTS N/A: Back LIFENET:LIFENET TRANSPLANT SRV 04/14/2023 BL-[id number] / Scr Spne Arash Fix 7x50mm -750 - [id number] Implanted:Qty : 4 on 05/03/2022 by Edson Barfield MD at [facility] IMPLANTS N/A: Back J &J:DEPUY:DEPUY SPINE -7 50 / -7 50 / Mis Jazzy Ply Scrw Set Ti -000 - [id number] Implanted:Qty : 4 on 05/03/2022 by Edson Barfield MD at [facility] IMPLANTS N/A: Back J &J:DEPUY:DEPUY SPINE 15-0 00 / 15-0 00 / Teo Pre Load 40mm [id number] - [id number] Implanted:Qty : 2 on 05/03/2022 by Edson Barfield MD at [facility] IMPLANTS N/A: Back J &J:DEPUY:DEPUY SPINE 71-0 40 / -0 40 / Cage Eit Plif H 11mm 8d / [id number] - [id number] Implanted:Qty : 1 on 05/03/2022 by Edson Barfield MD at [facility] IMPLANTS N/A: Back J &J:DEPUY:DEPUY SPINE 03/18/2027 [id number] / / [id number] Sealant Durasl Spine 5ml [id number] - [id number] Implanted:Qty : 1 on 05/03/2022 by Edson Barfield MD at [facility] IMPLANTS N/A: Back [employer] 10/17/[id number] / / [id number] Pwdr Cellerate Rx 5gm Surgical [id number]-[id number] - [id number] Implanted:Qty : 1 on 05/03/2022 by Edson Barfield MD at [facility] IMPLANTS N/A: Back [employer] 12/17/2023 [facility]-05-SA CRXP / / [id number] Stent Uret Percflx + 4.8frx28 [id number] - [id number] Implanted:Qty : 1 on 06/09/2024 by Kareem Young MD at [facility] IMPLANTS Right: Ureter [employer]:UROLOGY/GYNE COLOGY 10/18/2026 [id number] / / [id number] Explanted Type Area Fashion Adviser Device Identifier Shelf Expiration Date Model / Serial / Lot Cath Uret Pollack 5fr [id number] - [id number] Implanted:Kareem Blandon MD (Quantity not on file) Explanted:Qty: 1 on 06/09/2024 at [facility] Right: Ureter COOK:UROLOGY 11/17/2026 [id number] / / [id number] Procedures Procedure Name Priority Date/Time Associated Diagnosis [...] ANESTHESIA INTUBATION Routine 06/09/2024 2:48 PM EDT [place] CYSTO W/INSERT URETERAL STENT 06/09/2024 2:39 PM EDT Diagnosis unknown [place] LITHOTRIPSY XTRCORP SHOCK WAVE 06/09/2024 2:39 PM [...] interpreted, and dictated by Darryl Clark MD Ariella Grant PA-C IMG CT ORDERABLES Final Re sult * (ABNORMAL) Urinalysis, Reflex Microscopic and Culture If Indicated (07/19/2024 12:09 AM EDT) Color, UA Light Yellow 07/19/2024 12:21 AM EDT [facility] Clarity, UA Turbid(A) Clear 07/19/2024 12:21 AM EDT [facility] Specific [place], UA 1.022 1.005 - 1.030 07/19/2024 12:21 AM EDT [facility] pH, UA 5.5(L) 6.0 - 8.0 07/19/2024 12:21 AM EDT [facility] Leukocytes, UA Negative Negative 07/19/2024 12:21 AM EDT [facility] Nitrite, UA Negative Negative 07/19/2024 12:21 AM EDT [facility] Protein, UA Negative Negative 07/19/2024 12:21 AM EDT [facility] Glucose, UA Normal Normal 07/19/2024 12:21 AM EDT [facility] Ketones, UA Negative Negative 07/19/2024 12:21 AM EDT [facility] Bilirubin, UA Negative Negative 07/19/2024 12:21 AM EDT [facility] Blood, UA 3+(A) Negative 07/19/2024 12:21 AM EDT [facility] Urobilinogen, UA Normal Normal 07/19/2024 12:21 AM EDT [facility] Specimen Source Urine, Clean Catch 07/19/2024 12:21 AM EDT [facility] Urine URINE SPECIMEN COLLECTION, CLEAN CATCH / Unknown 07/19/2024 12:09 AM EDT 07/19/2024 12:10 AM EDT Ariella rGant PA-C URINE ORDERABLES Final Res ult Performing Organization Address [facility]/ZIP Co de Phone Number [facility] [address] [phone] * (ABNORMAL) Urinalysis Microscopic Only (07/19/2024 12:09 AM EDT) WBC, UA 6-10(A) None Seen /HPF 07/19/2024 12:21 AM EDT [facility] RBC, UA Too Numerous To Count(A) None Seen /HPF 07/19/2024 12:21 AM EDT [facility] Bacteria, UA 1+(A) Trace, None Seen 07/19/2024 12:21 AM EDT [facility] Mucus 1+(A) None Seen 07/19/2024 12:21 AM EDT [facility] SQUAMOUS EPITHELIAL None Seen None Seen /HPF 07/19/2024 12:21 AM EDT [facility] Urine URINE SPECIMEN COLLECTION, CLEAN CATCH / Unknown 07/19/2024 12:09 AM EDT 07/19/2024 12:10 AM EDT Ariella Grant PA-C URINE ORDERABLES Final Res ult [facility] [address] [phone] * (ABNORMAL) CBC with Auto Diff (07/18/2024 11:28 PM EDT) WBC 8.6 3.9 - 10.0 K/ L 07/18/2024 11:32 PM EDT [facility] RBC 4.54(L) 4.63 - 6.08 M/ L 07/18/2024 11:32 PM EDT [facility] Hemoglobin 14.1 11.2 - 15.7 GM/DL 07/18/2024 11:32 PM EDT [facility] Hematocrit 42.0 40.1 - 51.0 % 07/18/2024 11:32 PM EDT [facility] MCV 93 79 - 95 fL 07/18/2024 11:32 PM EDT [facility] MCH 31.1 25.6 - 32.2 pg 07/18/2024 11:32 PM EDT [facility] MCHC 33.6 32.3 - 36.5 GM/DL 07/18/2024 11:32 PM EDT [facility] RDW 13.6 11.6 - 14.4 % 07/18/2024 11:32 PM EDT [facility] Platelets 236 163 - 369 K/CU MM 07/18/2024 11:32 PM EDT [facility] MPV 9.7 9.4 - 12.4 fL 07/18/2024 11:32 PM EDT [facility] % Neutros 62 34 - 68 % 07/18/2024 11:32 PM EDT [facility] % Lymphs 24 19 - 53 % 07/18/2024 11:32 PM EDT [facility] % Monos 9 4 - 13 % 07/18/2024 11:32 PM EDT [facility] % Eos 4 1 - 7 % 07/18/2024 11:32 PM EDT [facility] % Baso 1 0 - 1 % 07/18/2024 11:32 PM EDT [facility] # Neutros 5.33 1.56 - 6.13 K/ L 07/18/2024 11:32 PM EDT [facility] # Lymphs 2.05 1.18 - 3.74 K/ L 07/18/2024 11:32 PM EDT [facility] # Monos 0.74 0.24 - 0.82 K/ L 07/18/2024 11:32 PM EDT [facility] # Eos 0.36 0.04 - 0.54 K/ L 07/18/2024 11:32 PM EDT [facility] # Baso 0.08 0.01 - 0.08 K/ L 07/18/2024 11:32 PM EDT [facility] Immature Granulocytes-Re lative 0.20 0.00 - 0.60 % 07/18/2024 11:32 PM EDT [facility] # IG 0.02 0.00 - 0.05 K/uL 07/18/2024 11:32 PM EDT [facility] Blood 07/18/2024 11:2 8 PM EDT 07/18/2024 11:28 PM EDT Narrative [facility] - 07/18/2024 11:32 PM EDT [...] Ariella NOLAND-Tess LAB BLOOD ORDERABLES Final Result Performing Organization Address City/[facility]/ZIP Co de Phone Number [facility] [address] [place] [address], [facility] [phone] * Lactic Acid with reflex (SJ) (07/18/2024 11:28 PM EDT) Lactic Acid Level (mmol/L) 1.0 0.4 - 2.0 mmol/L 07/18/2024 11:58 PM EDT [facility] Comment:If a Lactic Acid Lev el with Reflex if Indicated result is greater than 2.0, a Lactic Acid Level will be ordered to be collected 2 hours after the original collection time. Blood 07/18/2024 11:2 8 PM EDT 07/18/2024 11:28 PM EDT Ariella NOLAND-C LAB BLOOD ORDERABLES Final Result Performing Organization Address City/[facility]/ZIP Co de Phone Number [facility] [address] [place] [address], [facility] [phone] * Blood Culture (07/18/2024 11:28 PM EDT) Only the most recent of2 resultswithin the time period is included. Result No growth in 5 days 07/24/2024 10:01 AM EDT [facility] Blood 07/18/2024 11:2 8 PM EDT 07/18/2024 11:28 PM EDT Ariella Grant PA-C MICROBIOLOGY - GENERAL ORD ERABLES Final Result Performing Organization Address City/[facility]/ZIP Co de Phone Number [facility] [address] [phone] * C-Reactive Protein (07/18/2024 11:27 PM EDT) CRP <0.30 0.00 - 0.90 mg/dL 07/18/2024 11:58 PM EDT [facility] Blood Venipuncture / Unknown 07/18/2024 11:27 PM EDT 07/18/2024 11:27 PM EDT Ariella Grant PA-C LAB BLOOD ORDERABLES Final Result Performing Organization Address City/[facility]/ZIP Co de Phone Number [facility] [address] [phone] * (ABNORMAL) Comprehensive metabolic panel (07/18/2024 11:27 PM EDT) Sodium 140 136 - 146 meq/L 07/18/2024 11:58 PM EDT [facility] Potassium 4.1 3.5 - 5.1 meq/L 07/18/2024 11:58 PM EDT [facility] Chloride 109 102 - 112 meq/L 07/18/2024 11:58 PM EDT [facility] CO2 28 21 - 32 meq/L 07/18/2024 11:58 PM EDT [facility] Calcium 9.2 8.5 - 10.1 mg/dL 07/18/2024 11:58 PM EDT [facility] Glucose 115(H) 74 - 106 mg/dL 07/18/2024 11:58 PM EDT [facility] BUN 28(H) 7 - 22 mg/dL 07/18/2024 11:58 PM EDT [facility] Creatinine 0.93 0.70 - 1.30 mg/dL 07/18/2024 11:58 PM EDT [facility] BUN/Creatinine 30(H) 8 - 20 07/18/2024 11:58 PM EDT [facility] Albumin 4.0 3.4 - 5.0 g/dL 07/18/2024 11:58 PM EDT [facility] Alkaline Phosphatase 169(H) 27 - 136 U/L 07/18/2024 11:58 PM EDT [facility] ALT 47 12 - 78 U/L 07/18/2024 11:58 PM EDT [facility] AST 37 5 - 37 U/L 07/18/2024 11:58 PM EDT [facility] Total Bilirubin 0.3 0.2 - 1.3 mg/dL 07/18/2024 11:58 PM T [facility] Protein, Total 7.6 6.4 - 8.2 gm/dL 07/18/2024 11:58 PM T [facility] Anion Gap 7(L) 9 - 20 07/18/2024 11:58 PM T [facility] A/G Ratio 1.1 1.1 - 2.5 07/18/2024 11:58 PM T [facility] Globulin 3.6 1.5 - 4.5 g/dL 07/18/2024 11:58 PM T [facility] Osmolality Calc 285.8 mOsm/kg 11:58 PM T [facility] eGFR (mL/min/1.73m2) >60 >=60 mL/min/1.7 3m2 07/18/2024 11:58 PM T [facility] Comment:ESTIMATED GFR IS NOT ACCURATE CREATININE CLEARANCE IN PREDICTING GLOMERULAR FILTRATION RATE. ESTIMATED GFR IS NOT APPLICABLE FOR DIALYSIS PATIENTS. Blood Venipuncture / Unknown 07/18/2024 11:27 PM EDT 07/18/2024 11:27 PM EDT us Ariella Grant PA-C LAB BLOOD ORDERABLES Final Result [facility] [address] [place] [phone] * X-ray abdomen KUB 1 view (07/12/2024 1:41 PM EDT) Anatomical Region Laterality Modality Abdomen X-Ray 07/12/2024 2:34 PM EDT Impressions 07/12/2024 2:41 PM EDT No radioopaque upper urinary tract stones. Images reviewed, interpreted, and dictated by Dr. Briegtte Sheikh. Transcribed by Helena Sanz PA-C. Narrative [...] Transcribed by Helena Sanz PA-C. Shi NOLAND Linnea DIAGNOSTIC IMAGING ORDERABLES Final Result * AN [...] of attempts at approach: 1 Abhay Barbour ROLLER MAKER ANESTHESIA ORDERABLES Fin al Result * XR [...] - 146 meq/L 06/09/2024 5:39 AM EDT [facility] Potassium 4.1 3.5 - 5.1 meq/L 06/09/2024 5:39 AM EDT [facility] Chloride 111 102 - 112 meq/L 06/09/2024 5:39 AM EDT [facility] CO2 26 21 - 32 meq/L 06/09/2024 5:39 AM EDT [facility] Anion Gap 8(L) 9 - 20 06/09/2024 5:39 AM EDT [facility] BUN 18 7 - 22 mg/dL 06/09/2024 5:39 AM EDT [facility] Creatinine 0.97 0.70 - 1.30 mg/dL 06/09/2024 5:39 AM EDT [facility] BUN/Creatinine 19 8 - 20 06/09/2024 5:39 AM EDT [facility] Glucose 107(H) 74 - 106 mg/dL 06/09/2024 5:39 AM EDT [facility] Calcium 8.3(L) 8.5 - 10.1 mg/dL 06/09/2024 5:39 AM EDT [facility] Osmolality Calc 283.6 mOsm/kg 5:39 AM EDT [facility] eGFR (mL/min/1.73m2) >60 >=60 mL/min/1.7 3m2 06/09/2024 5:39 AM EDT [facility] Comment:eGFR of <60 suggests chronic kidney disease if found over a 3 month period of time. eGFR <15 indicates renal failure. Blood Venipuncture / Unknown 06/09/2024 5:28 AM EDT 06/09/2024 5:28 AM EDT us Shannan Andrea MD LAB BLOOD ORDERABLES Final Resu lt [facility] [address] [place] [address], [facility] [phone] * (ABNORMAL) CBC - Hemogram (SJ-BKR) (06/08/2024 5:26 PM EDT) WBC 9.1 3.9 - 10.0 K/ L 06/08/2024 5:33 PM EDT [facility] RBC 4.13(L) 4.63 - 6.08 M/ L 06/08/2024 5:33 PM EDT [facility] Hemoglobin 12.6 11.2 - 15.7 GM/DL 06/08/2024 5:33 PM EDT [facility] Hematocrit 38.6(L) 40.1 - 51.0 % 06/08/2024 5:33 PM EDT [facility] MCV 94 79 - 95 fL 06/08/2024 5:33 PM EDT [facility] MCH 30.5 25.6 - 32.2 pg 06/08/2024 5:33 PM EDT [facility] MCHC 32.6 32.3 - 36.5 GM/DL 06/08/2024 5:33 PM EDT [facility] RDW 13.2 11.6 - 14.4 % 06/08/2024 5:33 PM EDT [facility] Platelets 214 163 - 369 K/CU MM 06/08/2024 5:33 PM EDT [facility] MPV 9.7 9.4 - 12.4 fL 06/08/2024 5:33 PM EDT [facility] nRBC 0(L) 1 - 5 /100 WBC 06/08/2024 5:33 PM EDT [facility] Blood Venipuncture / Unknown 06/08/2024 5:26 PM EDT 06/08/2024 5:26 PM EDT us Shannan Andrea MD LAB BLOOD ORDERABLES Final Resu lt [facility] [address] [phone] * PT/INR, PTT (06/08/2024 5:26 PM EDT) aPTT 28.2 22.0 - 32.0 seconds 06/08/2024 5:45 PM EDT [facility] Protime 10.8 9.0 - 12.0 seconds 06/08/2024 5:45 PM EDT [facility] INR 0.99 0.80 - 1.10 06/08/2024 5:45 PM EDT [facility] Blood Venipuncture / Unknown 06/08/2024 5:26 PM EDT 06/08/2024 5:26 PM EDT Shannan Andrea MD LAB BLOOD ORDERABLES Final Resu lt [facility] [address] [facility] [address] [phone] * XR chest AP portable (06/08/2024 4:55 PM EDT) Anatomical Region Laterality Modality Chest X-Ray 06/09/2024 1:51 AM EDT Impressions 06/09/2024 1:52 AM EDT No acute cardiopulmonary process. Images reviewed, interpreted, dictated and electronically signed by Devon Walker MD Voice public health worker technology (wavecatche) is used for the dictation of this note and sound-alike words might be erroneously placed despite reviewing this note for accuracy. Errors in dictation may reflect use of voice recognition software and not all errors in public health worker may have been detected prior to signing. [...] electronically signed by Devon Walker MD Voice public health worker technology (Power MDdatacoribe) is used for the dictation of this note and sound-alike words might be erroneously placed despite reviewing this note for accuracy. Errors in dictation may reflect use of voice recognition software and not all errors in public health worker may have been detected prior to signing. Shannan Andrea MD IMG DIAGNOSTIC IMAGING ORDERABL ES Final Result * ECG 12 lead (06/08/2024 4:43 PM EDT) VENTRICULAR RATE EKG/MIN 0 BPM GE MUSE ATRIAL RATE (MCT) 0 BPM GE MUSE QRS-INTERVAL (MSEC) 0 ms GE MUSE QT Interval 0 ms GE MUSE QTC Interval 0 ms GE MUSE R AXIS (MCT) 0 degrees GE MUSE T Wave [place] 0 degrees GE MUSE [place] Diagnosis No QRS complexes found, no ECG analysis possible Confirmed by Saroj KHAN SUZANNE ([id number]) on 06/13/2024 12:33:18 PM GE MUSE 06/08/2024 4:43 PM EDT 06/13/2024 12:33 PM EDT Shannan Andrea MD ECG ORDERABLES Final Result GE MUSE * EKG-SCANNED (06/08/2024) Narrative 06/08/2024 Ordered by an unspecified provider. us Default Scanning Provider SCAN ORDERS Final Result from Last 3 Months Insurance MEDICARE PART A B [facility] SUPP Advance Directives For more information, please contact: [phone] * Full Code (Latest Code Status on [...] 5:45 PM 05/04/2022 4:41 PM Care Teams Cover Inspector Relationship Specialty Start Date End Date [facility], Provider Not In The System, [place] [address] PCP - General 07/18/24 Lolita Belcher [facility], [address] [address] Advanced Registered Nurse Practitioner Primary Care 06/10/24
--- OUTSIDE RECORDS SUMMARY | 2024-08-08 10:54 | XMS_ITS | Encounter Summary ---
Author Organization [employer] Address [address] [place] [address] Care Team Providers Care Space Physicist Name Role Phone Emily Estrada Primary Care Provider Unavail able [facility], Provider Not In The System Primary Care Provider Unavailable Encounter Details Date Type Department Care Team (Late st Contact Info) Description 07/30/2020 Transcribed Document [facility] Family Medicine [facility] [place] [address] ProviderJodie MD [address] [place] [address] Social History Tobacco Use Types Packs/Day Years [...] Historical ProviderMD - 07/30/2020 7:15 PM CDT [facility] Main OR IntraOp Summary Primary Physician: VLAD LEPE MD-URO Finalized Date/Time: 07/31/20 10:54:37 Pt. Name: TAY THOMAS /Sex: 1955 Male Med Rec #: [id number] Physician: VLAD LEPE MD-URO Financial #: [id number] Pt. Type: O Room/Bed: Admit/Disch: 07/30/20 13:09:00 - Institution: [facility] IntraOp Case Attendance Entry 1 Entry 2 Entry 3 Case Attendee VLAD LEPE WORLEY, CYNTHIA LEE, ADAMARIS SANCHEZ, JENNIFER DE LA O-URO MD-ANS Role Performed Surgeon/Proceduralist, Anesthesiologist of Scrub, First First Record Time In 07/30/20 19:05:00 07/30/20 19:05:00 07/30/20 19:05:00 Time Out 07/30/20 20:00:00 07/30/20 20:00:00 07/30/20 20:00:00 Procedure Ureteral Stone Ureteral Stone Ureteral Stone Manipulation Laser, Manipulation Laser, Manipulation Laser, Ureteral Stent Insertion Ureteral Stent Insertion Ureteral Stent Insertion Other Attendee Superficial Wound Closed By: Last Modified By: Sara Dent, Sara Souza, Sara Souza Rn 07/30/20 20:02:00 07/30/20 20:02:00 07/30/20 20:02:00 Entry 4 Entry 5 Case Attendee Sara Dent, Christina Fatima [employer] Pref Card Builder Role Performed Reel Cart Operator, First Laser Striker Off Time In 07/30/20 19:05:00 07/30/20 19:05:00 Time Out 07/30/20 20:00:00 07/30/20 20:00:00 Procedure Ureteral Stone Ureteral Stone Manipulation Laser, Manipulation Laser, Ureteral Stent Insertion Ureteral Stent Insertion Other Attendee Superficial Wound Closed By: Last Modified By: Sara Dent, Sara Souza, Cassie 07/30/20 20:02:00 07/30/20 20:02:38 [facility] IntraOp Case Attendance Audit 07/30/20 20:02:38 Pickler Helper: [id number] Modifier: [id number] <+> 5 Procedure 07/30/20 20:02:00 Pickler Helper: [id number] Modifier: [id number] <+> Time Out 1 <*> Procedure Ureteral Stone Manipulation Laser, Ureteral Stent Insertion 2 <+> Time Out 2 <*> Procedure Ureteral Stone Manipulation Laser, Ureteral Stent Insertion 3 <+> Time Out 3 <*> Procedure Ureteral Stone Manipulation Laser, Ureteral Stent Insertion 4 <+> Time Out 4 <*> Procedure Ureteral Stone Manipulation Laser, Ureteral Stent Insertion <+> 5 Time In <+> 5 Time Out 07/30/20 19:48:38 Pickler Helper: [id number] Modifier: [id number] <+> 5 Case Attendee <+> 5 Role Performed 07/30/20 19:26:20 Pickler Helper: [id number] Modifier: [id number] 1 <+> Time In 1 <*> Procedure Ureteral Stone Manipulation Laser, Ureteral Stent Insertion 2 <+> Time In 2 <*> Procedure Ureteral Stone Manipulation Laser, Ureteral Stent Insertion 3 <*> Case Attendee ANDREZ CABRAL 3 <+> Time In 3 <*> Procedure Ureteral Stone Manipulation Laser, Ureteral Stent Insertion 4 <+> Time In 4 <*> Procedure Ureteral Stone Manipulation Laser, Ureteral Stent Insertion 07/30/20 18:34:03 Pickler Helper: [id number] Modifier: [id number] <+> 1 Procedure <+> 2 Procedure <+> 3 Procedure <+> 4 Procedure [facility] IntraOp Case Times Entry 1 Patient In Room Time 07/30/20 19:05:00 Out Room Time 07/30/20 20:00:00 Anesthesia Start Time 07/30/20 19:05:00 Stop Time 07/30/20 20:00:00 Surgery / Procedure Times Start Time 07/30/20 19:15:00 Stop Time 07/30/20 19:56:00 Last Modified By: Sara Dent Rn 07/30/20 20:01:59 [facility] IntraOp Case Times Audit 07/30/20 20:01:59 Pickler Helper: [id number] Modifier: [id number] <+> 1 Out Room Time <+> 1 Stop Time <+> 1 Stop Time [facility] IntraOp Communication Entry 1 Communication To Family/Significant other Communication By Sara Dent, Cassie Date and Time 07/30/20 19:04:00 Last Modified By: Sara Dent, Cassie 07/30/20 19:26:06 [facility] IntraOp Departure from OR Entry 1 Integumentary Assessment Integumentary WDL Assessment WDL Transfer/Handoff Transfer to PACU Phase I Handoff Method Phone call Post-op Transport Stretcher/Gurney Via Patient Transport CHIP EVANGELISTA, Accompanied by Jailene BENEDICT Carolyn, Rn Last Modified By: Sara Dent, Cassie 07/30/20 19:26:32 [facility] IntraOp Departure from OR Audit 07/30/20 19:26:32 Pickler Helper: [id number] Modifier: [id number] <+> 1 Patient Transport Accompanied by [facility] IntraOp Fire Risk Assessment Entry 1 Fire Info Surgical Site or 0- No Incision Above the Xyphoid Open O2 Source 0- No (Mask or Cannula) Available Ignition 1- Yes (ESU, Laser, Light Source) Fire Risk 1 Assessment Score Fire Score Fire Risk Yes Assessment Complete Fire Risk Sara Dent Rn Assessment Verified By Fire Risk 07/30/20 19:15:00 Assessment Verified Date/Time Fire Risk Standard Fire Yes Safety Precautions Followed Last Modified By: Sara Dent Rn 07/30/20 19:18:49 [facility] IntraOp Fire Risk Assessment Audit 07/30/20 19:18:49 Pickler Helper: [id number] Modifier: [id number] <+> 1 Fire Risk Assessment Verified Date/Time [facility] IntraOp General Case Prepress Proofer 1 Case Information OR Cysto 01 [facility] Case Level 1 Room Verified Yes Wound Class II - Clean-Contaminated Specialty Urology Anesthesia Type General ASA Class 3 Diagnosis Preop Diagnosis RIGHT URETERAL STONE Postop Diagnosis SEE MD POST OP NOTE Last Modified By: Sara Dent Rn 07/30/20 19:20:43 [facility] IntraOp General Case Data Audit 07/30/20 19:20:43 Pickler Helper: [id number] Modifier: [id number] 1 <*> ASA Class 2 [facility] IntraOp Implant Log Entry 1 Type Implant (Synthetic) Implant Log Implant Type Other Implant STENT URET PERC + Identification [id number] Description Implant Quantity 1 Implant Site RT URETER Implant [id number] Identification Lot Number Implant [place] Identification Sci:Urology/Gynecology Produce Department Supervisor Name: Implant [id number] Identification Catalog Number Implant Size [id number] Implant Has an Yes Expiration Date Implant Expiration 09/22/20 Date Tissue Implant Last Modified By: Sara Dent Rn 07/30/20 19:52:21 [facility] IntraOp Implant Log Audit 07/30/20 19:52:21 Pickler Helper: [id number] Modifier: [id number] <+> 1 Implant Identification Description <+> 1 Implant Identification Lot Number <+> 1 Implant Identification Produce Department Supervisor Name: <+> 1 Implant Size <+> 1 Implant Expiration Date <+> 1 Implant Identification Catalog Number <+> 1 Implant Has an Expiration Date [facility] IntraOp Intraoperative Assessment Entry 1 Handoff Method Online nursing summary Valid History / Yes Physical in Chart Preoperative Yes Checklist Reviewed/Evaluated Allergies Reviewed Yes Patient is Latex No Sensitive Isolation Not applicable Precautions Noted Level of WDL Consciousness (WDL = Alert, Oriented to Person, Place, and Time) Skin Assessment Yes Verified Present Upon IVs Arrival to OR Last Modified By: Sara Dent Rn 07/30/20 18:32:04 [facility] IntraOp Intraoperative Equipment Entry 1 Type Equipment Equipment Intraop Monitoring Blood Pressure Non-Invasive BP Device Source Antiembolic Devices Antiembolic Devices Sequential compression device, knee high Antiembolic Device Bilateral Location Antiembolic Device ON PRIOR TO INTUABTION Setting Scopes Photo/Video Documentation Photo No Video No Intraop Equipment Sequential compression Comment devices on and in operation prior to induction of anesthesia. Last Modified By: Sara Dent Rn 07/30/20 19:20:37 [facility] IntraOp Intraoperative Equipment Audit 07/30/20 19:20:37 Pickler Helper: [id number] Modifier: [id number] 1 <-> Electrocardiogram (ECG) Electrode Five lead placement Placement [facility] IntraOp Laser Data/Safety Entry 1 Procedure Ureteral Stone Manipulation Laser Laser Data Laser Type Green light Laser Serial [id number] Number/Identificatio n Number Laser Mode Continuous Laser Mode Set By VLAD LEPE MD-URO Microscope Used? No Laser Fiber Used Yes Graff 10 Joules 0.5 Laser Safety Procedure personnel Measures Included received laser safety information, [place] of water/Saline immediately available, Fire extinguisher location noted, Laser Caution placards placed on all doors, Laser safe instrumentation utilized, Specific laser safety precautions implemented, Wet towels and sponges used to protect patient and drapes, Windows covered, Laser tested/calibrated, Appropriate eye protection for patient, Appropriate eye protection for staff, Appropriate eye protection for surgeon, No flammable liquid around surgical area, Secure laser operation storm, Implement fire protection measures Last Modified By: Sara Dent Rn 07/30/20 19:47:23 [facility] IntraOp Laser Data/Safety Audit 07/30/20 19:47:23 Pickler Helper: [id number] Modifier: [id number] 1 <+> Graff 1 <*> Procedure Ureteral Stone Manipulation Laser 1 <+> Laser Safety Measures Included 1 <+> Joules 07/30/20 19:25:53 Pickler Helper: [id number] Modifier: [id number] 1 <*> Procedure Ureteral Stone Manipulation Laser 1 <+> Laser Serial Number/Identification Number [facility] IntraOp Medication Admin Entry 1 Entry 2 Entry 3 Medication/Irrigant ARLET IRR NACL 0.9PCT lidocaine 2% urojet [place] Ishmealllnile - [id number] 10ml jelester - [id number] Combo Med List Time Administered Route of Irrigation TOP TOPICAL Administration Dose Dose 10 Unit of Measure ml Volume Administered By VLAD LEPE, VLAD LEPE, VLAD LEPE MD-URO VINNYURO -URO Procedure Irrigation Irrigant Volume In Irrigant Volume Out Last Modified By: Sara Dent Rn Taylor, Carolyn, Rn Taylor, Carolyn, Rn 07/30/20 18:33:11 07/30/20 18:33:11 07/30/20 18:33:11 Entry 4 Medication/Irrigant ANCEF 2GM Combo Med List Time Administered 07/30/20 19:14:00 Route of IV Administration Dose Dose 2 Unit of Measure gram Volume Administered By CHIP EVANGELISTA MD-ANS Procedure Irrigation Irrigant Volume In Irrigant Volume Out Last Modified By: Sara Dent Rn 07/30/20 19:48:06 [facility] IntraOp Medication Admin Audit 07/30/20 19:48:06 Pickler Helper: [id number] Modifier: [id number] <+> 4 Medication/Irrigant <+> 4 Route of Administration <+> 4 Administered By <+> 4 Dose <+> 4 Time Administered <+> 4 Unit of Measure [facility] IntraOp Patient Positioning Entry 1 Procedure Ureteral Stone Manipulation Laser, Ureteral Stent Insertion Body Position Lithotomy Left Arm Position Resting at side Right Arm Position Resting at side Left Leg Position Secured in Leg Huang Right Leg Position Secured in Leg Huang Feet Uncrossed Yes Pressure Points Yes Checked Positioning Devices Head Rest, Table, Cysto, Pad, Elbow, Pad, Elbow, Stirrups/Leg Huang, Cysto Positioned By VLAD LEPE MD-URO, Sara Dent Rn, CHIP EVANGELISTA MD-ANS Position Verified Positioning Yes Verified by Anesthesia Positioning Yes Verified by Surgeon Last Modified By: Sara Dent Rn 07/30/20 18:34:04 [facility] IntraOp Patient Positioning Audit 07/30/20 18:34:04 Pickler Helper: [id number] Modifier: [id number] <+> 1 Procedure [facility] IntraOp Sign In Entry 1 Patient, Site, Yes Procedure Identified Surgical Consent Yes Confirmed Relevant Surgical Yes Documents Available Surgical Site Yes Marked by person performing procedure Anesthesia Machine Yes Check Completed Medication Checks Yes Completed Allergies Yes Airway Difficult Yes Airway/Aspiration Risk Difficult Yes Airway/Aspiration Intervention Equipment Available Blood Loss Risk Yes Blood Loss Yes Intervention Equipment Prepared and Ready Blood Identifiers Not applicable Verified Per Policy Hypothermia Risk Yes Warming Measures Yes Taken Last Modified By: Sara Dent Rn 07/30/20 18:33:45 [facility] IntraOp Sign Out Entry 1 RN Confirmation Surgical Yes Procedure(s) Identified Instrument, Sponge N/A and Sharps Counts Correct/Documented Equipment Problems N/A Documented Specimen Labeled Yes Correctly Urinary Catheter N/A Documented in IView Storm Patient Yes Recovery Concerns Reviewed with Anesthesia Provider, Surgeon and RN Storm Patient Yes Management Concerns Reviewed with Anesthesia Provider, Surgeon and RN Safety Checklist Yes Elements Complete? RN Sign Out Sara Dent Rn Signature RN Sign Out 07/30/20 20:02:00 Signature Date/Time Plan of Care Outcome - Fire Risk OUTCOME STATEMENT: Goal met Patient is free from injury related to surgical fire Plan of Care Outcome - Pt Positioning OUTCOME STATEMENT: Goal met Absence of signs and symptoms of positioning injury. Plan of Care Outcome - Skin Prep OUTCOME STATEMENT: Goal met Intraoperative care is consistent with measures to prevent infection Plan of Care Outcome - Xray/Images OUTCOME STATEMENT: Goal met Absence of observable signs or symptoms of radiation injury Plan of Care Outcome - Counts OUTCOME STATEMENT: Goal met Absence of signs and symptoms of injury related to extraneous objects Last Modified By: Sara Dent Rn 07/30/20 20:02:04 [facility] IntraOp Sign Out Audit 07/30/20 20:02:04 Pickler Helper: [id number] Modifier: [id number] <+> 1 RN Sign Out Signature Date/Time [facility] IntraOp Skin Prep Entry 1 Procedure Ureteral Stone Manipulation Laser, Ureteral Stent Insertion Prescribed Yes Pre-Surgical Prep Completed Prep Area Genitalia Intraop Prep Integumentary WDL Assessment WDL Prep Agents Betadine solution Prep by Sara Dent Rn Hair Removal Methods No hair removal performed Last Modified By: Sara Dent Rn 07/30/20 18:34:05 [facility] IntraOp Skin Prep Audit 07/30/20 18:34:05 Pickler Helper: [id number] Modifier: [id number] <+> 1 Procedure [facility] IntraOp Surgical Procedures Entry 1 Entry 2 Procedure Ureteral Stone Ureteral Stent Insertion Manipulation Laser Modifiers Additional RIGHT URETERSOCOPY WITH Procedure LASER AND STENT Description Primary Procedure Yes No Primary Surgeon VLAD LEPE, VLAD LEPE, -URO MD-URO Start 07/30/20 19:15:00 07/30/20 19:15:00 Stop 07/30/20 19:56:00 07/30/20 19:56:00 Physician States Cecum Reached Anesthesia Type General General Specialty Urology Urology Wound Class II - Clean-Contaminated II - Clean-Contaminated Last Modified By: Sara Dent Rn Taylor, Carolyn, Rn 07/30/20 20:02:05 07/30/20 20:02:05 [facility] IntraOp Surgical Procedures Audit 07/30/20 20:02:05 Pickler Helper: [id number] Modifier: [id number] <+> 1 Stop <+> 2 Stop 07/30/20 19:47:35 Pickler Helper: [id number] Modifier: [id number] 2 <*> Procedure Ureteral Stent Insertion 07/30/20 19:20:00 Pickler Helper: [id number] Modifier: [id number] <+> 1 Start <+> 2 Start [facility] IntraOp Temp Regulation Devices Entry 1 Temp Regulation Temperature Warm blankets, Room Regulation Device temperature Temperature Upper body Regulation Site Temperature CHIP EVANGELISTA, Regulation Device JAK Applied by Temperature Patient's temperature Regulation Comment monitored by anesthesia provider. Forced air warming device available for use. Last Modified By: Sara Dent Rn 07/30/20 19:19:58 [facility] IntraOp Temp Regulation Devices Audit 07/30/20 19:19:58 Pickler Helper: [id number] Modifier: [id number] <+> 1 Temperature Regulation Device Applied by [facility] IntraOP Time Out Entry 1 Procedure to be Ureteral Stone Performed Manipulation Laser, Ureteral Stent Insertion Time Out Time Out Pause Time 07/30/20 09:15:00 All activity Yes suspended (unless life threatening emergency) Team Verbally Correct patient Confirms Information identity, Correct side and site are marked, Consent form is present and accurate, Agreement on the procedure to be done, Correct patient position, Relevant images/results properly labeled/appropriately displayed, Confirm antibiotics have been administered, Confirm prosthesis/implant/devic e is present, Performed in location of procedure after prepped/draped Antibiotic Yes Prophylaxis Administered Or In Progress Within the Last 60 Minutes Beta Jany N/A Administered Venous Yes Thromboembolism Prophylaxis Required Anticipated Critical Events Surgeon None expected Anesthesia Provider None expected Nursing Assures Sterility of instruments, Implant Availability Essential Imaging Yes Labeled and Displayed Last Modified By: Sara Dent Rn 07/30/20 19:19:43 [facility] IntraOp X-Ray and Images Entry 1 X-Ray/Imaging Type Fluoroscopy Fluoroscopy Type Fixed Site RT URETER Protective Devices Yes Used Last Modified By: Sara Dent Rn 07/30/20 19:23:15 Case Comments <None> Finalized By: GEORGE GRAFF Document Signatures Signed By: Sara Dent Rn 07/30/20 20:02 GEORGE GRAFF 07/31/20 10:54 Unfinalized History Date/Time Username Reason for Unfinalizing Freetext Reason for Unfinalizing 07/31/20 10:51 DIANN Correct Billing Electronically signed by Jane [facility] Conversion Acidizer Helper Cerner at 06/03/2022 10:53 PM CDT documented in this encounter Plan of Treatment Not on file documented as of this encounter Visit Diagnoses Not on filedocumented in this encounter Care Teams Space Physicist Relationship Specialty Start Date End Date Emily Estrada [address] [place] [id number] PCP - General 05/14/22 06/09/24 [facility], Provider Not In The System, [place] [address] PCP - General 07/18/24 Lolita Belcher [address] [place] [address], [address] [place] [address] Advanced Registered Nurse Practitioner Primary Care 06/10/24 documented as of this encounter
--- OUTSIDE RECORDS SUMMARY | 2024-08-08 10:54 | XMS_ITS | Encounter Summary ---
Author Organization [employer] Address [address] [place] [address] Care Team Providers Care Wire Preparation Machine Tender Name Role Phone Emily Estrada Primary Care Provider Unavail able [facility], Provider Not In The System Primary Care Provider Unavailable Encounter Details Date Type Department Care Team (Late st Contact Info) Description 06/19/2021 Transcribed Document [facility] Family Medicine [address] [place] [address] ProviderJodie MD [address] [place] [address] Social History Tobacco Use Types Packs/Day Years Used Date Smoking Tobacco: Never Assessed Sex and Gender Information Value Date Recorded Sex Assigned at Not on file Legal Sex Male 4:10 PM CDT Gender Identity Not on file Sexual Orientation Straight 05/21/2022 1: 57 PM CDT documented as of this encounter Miscellaneous Notes * Cerner Conversion Note - Historical ProviderMD - 06/19/2021 1:11 PM CDT Initial Discharge Planning Entered On: 06/19/2021 13:14 EDT Performed On: 06/19/2021 13:11 EDT by YOCASTA GLASS, MATIAS - Gemologist Initial Assessment I Previously Documented Living Environment : No qualifying data available. Living Situation : Home Patient Lives With : Spouse Emergency Contact #1 : Kelsie Germain Emergency Contact #1 Emergency Contact #1 Relationship : Emergency Contact #2 : na Emergency Contact #2 Phone Number : na Emergency Contact #2 Relationship : na Identified Medical Decision Maker : self Number of People in Class : 1 Identified Medical Decision Maker Class : self 2nd Ident. Medical Decision Maker : Kelsie Germain Secondary Number of People in Class : 1 2nd Ident. Medical Decision Maker Class : spouse Enter Doctors Name : Lalo España Does Patient have PCP Listed? : Yes Legal Guardian : No YOCASTA GLASS RN - Gemologist - 06/19/2021 13:11 EDT Initial Assessment II Sensory and Motor Deficits : None Current Home Treatments and Equipment : None YOCASTA GLASS RN - Gemologist - 06/19/2021 13:11 EDT Discharge Needs I Anticipated Discharge Date : 06/20/2021 EDT Anticipated Discharge To, CM : Home independently, Home with family care Current Home Treatment/Equipment : Current Home Treatment/Equipment No qualifying data available. Post Acute/Home Treatments : None Documentation Status Complete : Yes YOCASTA GLASS RN - Gemologist - 06/19/2021 13:11 EDT Discharge Needs II Professional Skilled Services : Professional Skilled Services No qualifying data available. Needs Assistance with Transportation : No Patient Discharge Goal : Home YOCASTA GLASS RN - Gemologist - 06/19/2021 13:11 EDT Narrative Note Narrative Note : Observation day 1 Patient is here for kidney stones. Consults to uro. Lives at home with his . No dme, oxygen, or home health. Covid vaccine shots x 3. PLOF is ind. Probable discharge home when medically ready with to transport. No CM needs at this time. DCP: home YOCASTA GLASS RN - Gemologist - 06/19/2021 13:11 EDT documented in this encounter Plan of Treatment Not on file documented as of this encounter Visit Diagnoses Not on filedocumented in this encounter Care Teams Wire Preparation Machine Tender Relationship Specialty Start Date End Date Emily Estrada [address] [place] [address] [address] [place] [phone] PCP - General 05/14/22 06/09/24 [facility], Provider Not In The System, [place] [address] PCP - General 07/18/24 Lolita Belcher [address] [place] [address], [address] [place] [id number] Advanced Registered Nurse Practitioner Primary Care 06/10/24 documented as of this encounter
--- OUTSIDE RECORDS SUMMARY | 2024-08-08 10:54 | XMS_ITS | Encounter Summary ---
Author Organization [employer] Address [address] [place] [address] Care Team Providers Care Cigarette Examiner Name Role Phone Emily Estrada Primary Care Provider Unavail able [facility], Provider Not In The System Primary Care Provider Unavailable Encounter Details Date Type Department Care Team (Late st Contact Info) Description 06/18/2021 Transcribed Document [facility] [place] Family Medicine [facility] [place] [address] ProviderJodie MD [address] [place] [address] Social History Tobacco Use Types Packs/Day Years Used Date Smoking Tobacco: Never Assessed Sex and Gender Information Value Date Recorded Sex Assigned at Not on file Legal Sex Male 4:10 PM CDT Gender Identity Not on file Sexual Orientation Straight 05/21/2022 1: 57 PM CDT documented as of this encounter Miscellaneous Notes * Cerner Conversion Note - Historical ProviderMD - 06/18/2021 12:04 PM CDT Admission History, Adult Entered On: 06/18/2021 15:04 EDT Performed On: 06/18/2021 12:04 EDT by Helena Xiao RN Advance Directive Patient has Advance Directive *Q : No, patient refuses Advance Directive information Helena Xiao RN - 06/18/2021 14:57 EDT Anesthesia/Transfusion History Family History of Anesthesia Reaction : No prior transfusion(s) Transfusion History : Prior anesthesia without reaction Family History of Anesthesia Reaction : None Helena Xiao RN - 06/18/2021 14:57 EDT Anticipated Discharge Needs Discharge To, Anticipated : Home Anticipated Discharge Needs at This Time : Outpatient follow-up Helena Xiao RN - 06/18/2021 14:57 EDT Education Topics, Admission Orientation DCP GENERIC CODE Advance Directives : Verbalizes understanding Allergy Band Applied : Verbalizes understanding Assessment/Vital Signs : Verbalizes understanding Bed Control : Verbalizes understanding Call Light : Verbalizes understanding Confidentiality : Verbalizes understanding Diet/Room Service : Verbalizes understanding Fall Prevention : Verbalizes understanding Hand Hygiene : Verbalizes understanding Healthcare Provider Visit : Verbalizes understanding ID Band Applied : Verbalizes understanding Isolation Precautions : Verbalizes understanding Orientation to Room/Bathroom : Verbalizes understanding Patient Bill of Rights : Verbalizes understanding Patient Rights/Responsibilities : Verbalizes understanding Patient Safety : Verbalizes understanding Personal Privacy Code : Verbalizes understanding Rapid Response Initiated by Patient/Family : Verbalizes understanding Rounding : Verbalizes understanding Siderails use/risks : Verbalizes understanding Skin Precautions : Verbalizes understanding Smoking Policy : Verbalizes understanding Telemetry Monitoring : Verbalizes understanding Television/Phone : Verbalizes understanding Visiting Policy : Verbalizes understanding Helena Xiao RN - 06/18/2021 14:57 EDT Functional Assessment Living Situation : Home Patient Lives With : Spouse Persons Assisting Patient at Home : Spouse Current Daily Living Assistance : None Sensory Deficits : Hearing deficit, right ear, Hearing deficit, left ear, Uncorrected visual impairment Mobility Assistance Prior to Admission : Independent ACEVES Hx Falls Immediate/Within 3 Months : No Current Home Treatments : None Helena Xiao RN - 06/18/2021 14:57 EDT General Info Mode of Arrival on Unit : Ambulatory Legal Guardian : Unaccompanied Support Person/Pt Rep Name : Kelsietaran Germain Contact Password : hira Support Person/Pt Rep Contact Information : [phone] Want Family/Rep/Phys Notified of Admit : No Emergency Contact #1 : Kelsie Germain Emergency Contact #1 Emergency Contact #1 Relationship : Emergency Contact #2 : na Emergency Contact #2 Phone Number : na Emergency Contact #2 Relationship : na Chief Complaint : to ed with c/o right flank pain. At [facility] yesterday and was told that he had multiple kidney stones. He has had to have several stents. Information Obtained From : Patient Primary Language : Ukrainian Communication Barrier : None Auto Leasing Manager Needed : No Helena Xiao RN - 06/18/2021 14:57 EDT Fall Risk Scales ABCs Fall Injury Risk [...] Scale Risk Level : 0-24 Low Risk [place] Fall Interventions : Adequate lighting, Assistive devices within reach, Bed in low position, Call device within reach, Fall prevention handout/education per facility policy, Frequent orientation to call device, Frequent orientation to surroundings, Hourly comfort/safety rounds, Non-slip footwear, Personal items within reach, Reinforced to call for assistance before getting out of bed, Room free of clutter/spills, Wheels locked, Wires/Cords secured Fall Moderate to High Risk Interventions : Transport methods appropriate to patient, Toileting schedule Helena Xiao RN - 06/18/2021 14:57 EDT Fall Risk Education Grid Alarms : Verbalizes understanding Assistive Equipment Use : Verbalizes understanding Bed Height/Stabilization : Verbalizes understanding Call light use : Verbalizes understanding Door Open : Verbalizes understanding Environmental Management : Verbalizes understanding Eyeglasses Use : Verbalizes understanding Fall Community Resources : Verbalizes understanding Fall Contract/Letter : Verbalizes understanding Fall Prevention in the Home : Verbalizes understanding Fall Prevention Protocol : Verbalizes understanding Hearing Aid Use : Verbalizes understanding Home Risk Assessment : Verbalizes understanding Need Constant Observation : Verbalizes understanding Night Light Use : Verbalizes understanding Nonskid Footwear Use : Verbalizes understanding Notification of Staff When Leaving : Verbalizes understanding Orthostatic Hypotension Precautions : Verbalizes understanding Personal Article Availability : Verbalizes understanding Prevention Responsibility Family : Verbalizes understanding Prevention Responsibility Patient : Verbalizes understanding Risk Alert Methods : Verbalizes understanding Risk Factors : Verbalizes understanding Safety Aids : Verbalizes understanding Siderails use/risks : Verbalizes understanding Special Assistive Devices : Verbalizes understanding Staff Responsiveness : Verbalizes understanding Symptom Identification & Action Plan *Q : Verbalizes understanding Symptom Reporting : Verbalizes understanding Toileting Schedule : Verbalizes understanding Transfer/Mobility Techniques : Verbalizes understanding Urinal/Bedpan Availability : Verbalizes understanding Wait for Assistance : Verbalizes understanding Wheelchair Safety : Verbalizes understanding Helena Xiao RN - 06/18/2021 14:57 EDT Fall Risk Scale Calc Temp : 0 Helena Xiao RN - 06/18/2021 14:57 EDT Health Histories Smoking Status : Cigars or pipes daily within last 30 days Smokeless Tobacco Status : Never Desires Tobacco Cessation Medication : No Reason for No Tobacco Cessation Medication : Refuses FDA approved medications Helena Xiao RN - 06/18/2021 14:57 EDT Social History (As Of: 06/18/2021 15:04:44 EDT) Tobacco: Smoking Status Current every day smoker. Cigars/pipes daily Smoking Frequency Within Last 30 Days. Use in Last 12 Months: Cigars. Years of Use: 10. (Last Updated: 12/11/2016 01:10:46 EDT by Roseanna Humphrey RN) Alcohol: Days/Week: 1. Total Drinks/Week: 1. [...] Source : Stated Height Entry Format : [place] Height, Feet : 6 ft(Converted to: 183 cm, 72 Inch) Height, Inches : 1 Inch(Converted to: 0 ft 1 Inch, 2.54 cm) Clinical Height : 185.42 cm Weight Source : Standing scale Weight Entry Format : [place] Clinical Dosing Weight : 114.55 kg Weight, Pounds : 252 lb Body Surface Area (BSA) : 2.38 m2 Body Mass Index : 33.3 kg/m2 (HI) [place] Body Weight : 79 kg Helena Xiao RN - 06/18/2021 14:57 EDT Infectious Disease History Does patient have symptoms of COVID-19? : No Tested for COVID19 in the past 14 days : No, Patient stated Does the Patient state known exposure to a COVID-19 positive case in the last 14 days? : No Patient Vaccinated for COVID-19 : Fully vaccinated Helena Xiao RN - 06/18/2021 14:57 EDT Infectious Disease Risk Screening Grid Cough < 2 wks of unknown origin : NO Cough > 2 weeks : NO Blood in Sputum : NO Fever or self-reported Fever : NO Rash of unknown origin : NO Headache : NO Stiff neck : NO Night Sweats : NO Unexplained Weight Loss : NO Diarrhea (3 episode per day) : NO Helena Xiao RN - 06/18/2021 14:57 EDT Physical contact outside [place] in the last 30 days : No Hospitalized in Foreign Country : No Infectious Disease History : Chicken pox/Shingles, Hepatitis C, Influenza, Measles, Mumps INF Disease TB Screening Calc : 0 INF Disease Recent Travel Calc : 0 Helena Xiao RN - 06/18/2021 14:57 EDT Tetanus Immunization Status Previous Tetanus Immunizations : No qualifying data available. Tetanus Immunization : Greater than 10 years Helena Xiao RN - 06/18/2021 14:57 EDT Influenza Vaccine Asmt, Adult Previous Vaccines from Immunization Schedule : No qualifying data available. Influenza Immunization, Current Season : No Inactivated Flu Vaccine Contraindications : No contraindications to inactivated influenza vaccine Transplant Workup/Recent Transplant : No Order for Influenza Vaccine : Declined Vaccination Helena Xiao RN - 06/18/2021 14:57 EDT Pneumococcal Vaccine Previous Vaccines from Immunization Schedule : No qualifying data available. Pneumonia Immunization Received : No Pneumococcal Risk Assessment < Age 65 : N/A- Patient 65 years of age or older Pneumococcal Vaccine Contraindications : No contraindications to pneumococcal vaccine Transplant Workup/Recent Transplant : No Order for Pneumococcal Vaccine : Declined Vaccination Helena Xiao RN - 06/18/2021 14:57 EDT Order Details Transport Mode Order Detail : Wheelchair Isolation Precautions Order Detail : Standard Precautions Order Detail : N/A IV Order Detail : 1 Oxygen Order Detail : 0 Nurse Collect Order Detail : 0 Lift/Transfer : Independent Central Line Order Detail : No Room Service : Appropriate Arterial Line : No Patient Needs Meds Crushed/Liquid : No Helena Xiao RN - 06/18/2021 14:57 EDT Nutrition History Weight Entry Format Nutrition History : [place] Feeding Ability : Independent Adaptive Feeding Equipment : Regular Oral Medication Administration : By mouth Eating Poorly Due to Decreased Appetite : Yes Unplanned Weight Loss in Past 3-6 Months : No Malnutrition Screening Tool Total(mal) : 1 Malnutrition Screening Tool Risk Level : Patient not at risk Helena Xiao RN - 06/18/2021 14:57 EDT [place] Suicide Severity Rating Scale (C-SSRS) CSSRS Past Month Wish to be : No CSSRS Past Month Suicidal Thoughts : No CSSRS Lifetime Suicide Behavior : No Suicide Severity Rating Score : 0 Suicide Severity Rating : No Additional Care Required at this time Helena Xiao RN - 06/18/2021 14:57 EDT Psychosocial History Do You Have a History of the Following? : Patient denies history Currently in Unsafe Situation : No Helena Xiao RN - 06/18/2021 14:57 EDT Sleep Apnea Risk Assmt Hx of Obstructive Sleep Apnea Diagnosis : No Snore Loudly : Yes Tired, Fatigued, or Sleepy During Day : Yes Observed Stopping Breathing During Sleep : No Have/Are Being Treated for Hypertension : Yes BMI Greater Than 35 kg/m2 : No Age over 50 Years Old : Yes Neck Circumference Greater Than 40 cm : No Gender Male : Yes STOP-BANG Sleep Apnea Risk Level Score : 5 Helena Xiao RN - 06/18/2021 14:57 EDT Valuables and Belongings Valuables and Belongings : Clothing, Personal devices, Personal items, No comfort items, No jewelry, No assistive devices, No respiratory devices, No medications Clothing : Common streetwear Clothing Disposition : Bedside, With patient Personal Device Disposition : Bedside, With patient Personal Devices : Glasses Personal Items : Cell phone Personal Items Disposition : Bedside, With patient Helena Xiao RN - 06/18/2021 14:57 EDT documented in this encounter Plan of Treatment Not on file documented as of this encounter Visit Diagnoses Not on filedocumented in this encounter Care Teams Cigarette Examiner Relationship Specialty Start Date End Date Emily Estrada [address] [place] [id number] PCP - General 05/14/22 06/09/24 Sjh, Provider Not In The System, [place] [address] PCP - General 07/18/24 Lolita Belcher [facility] [place] [address], [address] [place] [address] Advanced Registered Nurse Practitioner Primary Care 06/10/24 documented as of this encounter
--- OUTSIDE RECORDS SUMMARY | 2024-08-08 10:54 | XMS_ITS | Encounter Summary ---
Author Organization [employer] Address [address] [place] [address] Care Team Providers Care Vault Teller Name Role Phone Emily Estrada Primary Care Provider Unavail able [facility], Provider Not In The System Primary Care Provider Unavailable Encounter Details Date Type Department Care Team (Late st Contact Info) Description 06/19/2021 Transcribed Document [facility] [place] [facility] [place] [address] ProviderJodie MD [address] [place] [address] Social History Tobacco Use Types Packs/Day Years Used Date Smoking Tobacco: Never Assessed Sex and Gender Information Value Date Recorded Sex Assigned at Not on file Legal Sex Male 4:10 PM CDT Gender Identity Not on file Sexual Orientation Straight 05/21/2022 1: 57 PM CDT documented as of this encounter Miscellaneous Notes * Cerner Conversion Note - Jodie ProviderMD - 06/19/2021 3:27 PM CDT [facility] [place] [address] TAY THOMAS Montez :1955 Visit Time:06/18/2021 Your Visit Summary Your Care Team Admitting Physician - BRYCE GREENE MD-[facility] Attending Physician - BENJAMIN TOMPKINS MD Primary Care Physician - DESIREE LEE MD-[facility] Referring Physician - BRYCE GREENE MD-[facility] Your Diagnosis Flank pain Kidney stone These Are Your Goals to get rid of the stones and pain. Patient Discharge Goal Patient Discharge Goal: Home Discharge Vitals Temperature 36.7 ??C Heart Rate (Monitored) 64 Respiratory Rate 18 Blood Pressure 107/68 What to do next Instructions From Your Care Team STOP the following medications: STOP Ondansetron Discharge Activity: Activity as tolerated Discharge Diet: Heart healthy diet Driving Restriction: No driving until 24 hours after taking pain medication Follow-Up Appointments Follow Up with VLAD LEPE When 06/26/2021 04:15 PM EDT Comments URO appt made, Bring discharge instructions with you Where: [facility] [address] [facility] (1) Follow Up with Follow up with primary care provider When Within As needed Medications What How Much When Instructions Next Dose promethazine (promethazine 25 mg oral tablet) 1 Tablet(s) Oral Every 6 Hours as needed for as needed for nausea/vomiting Pickup at [facility] as needed acetaminophen-hydrocodone (acetaminophen-HYDROcodone 325 mg-5 mg oral tablet) See instructions 1 or 2 PO Q6H PRN severe pain not to exceed 8 tablets/ day Pickup at [facility] as needed atorvastatin (atorvastatin 10 mg oral tablet) 1 Tablet(s) Oral At Bedtime bedtime allopurinol (allopurinol 300 mg oral tablet) 1 Tablet(s) Oral Every Day tomorrow aspirin (aspirin 81 mg oral delayed release tablet) 1 Tablet(s) Oral Every Day tomorrow ferrous sulfate (ferrous sulfate 325 mg (65 mg elemental iron) oral delayed release tablet) 1 Tablet(s) Oral Every Day tomorrow levothyroxine (levothyroxine 75 mcg (0.075 mg) oral tablet) 1 Tablet(s) Oral Every Day tomorrow lisinopril (lisinopril 20 mg oral tablet) 1 Tablet(s) Oral Two Times A Day tonight multivitamin with minerals (Centrum) 1 Tablet(s) Oral Every Day tomorrow nitroglycerin (Nitrostat 0.4 mg sublingual tablet) 1 Tablet(s) SubLINgual Every 5 minutes as needed for as needed for chest pain not to exceed 3 doses/ 15 min--if pain persists, seek medical attention as needed omega-3 polyunsaturated fatty acids (Fish Oil 500 mg oral capsule) 1 Capsule(s) Oral Every Day tomorrow vitamin E (vitamin E 400 intl units oral capsule) 1 Capsule(s) Oral Every Day tomorrow zinc sulfate (zinc sulfate 66 mg oral tablet) 1 Tablet(s) Oral Every Day tomorrow Pharmacy Information [facility]: [id number] [address] [address] JEN Morales [phone] Take your medications faithfully. Do NOT skip [...] This Visit No Immunizations Found Education Materials Fatty Liver Disease Fatty liver disease occurs when too much fat has built up in your liver cells. Fatty liver disease is also called hepatic steatosis or steatohepatitis. The liver removes harmful substances from your bloodstream and produces fluids that your body needs. It also helps your body use and store energy from the food you eat. In many cases, fatty liver disease does not cause symptoms or problems. It is often diagnosed when tests are being done for other reasons. However, over time, fatty liver can cause inflammation that may lead to more serious liver problems, such as scarring of the liver (cirrhosis) and liver failure. Fatty liver is associated with insulin resistance, increased body fat, high blood pressure (hypertension), and high cholesterol. These are features of metabolic syndrome and increase your risk for stroke, diabetes, and heart disease. What are the causes? This condition may be caused by: ??? Drinking too much alcohol. ??? Poor nutrition. ??? Obesity. ??? Pretty's syndrome. ??? Diabetes. ??? High cholesterol. ??? Certain drugs. ??? Poisons. ??? Some viral infections. ??? . What increases the risk? You are more likely to develop this condition if you: ??? Abuse alcohol. ??? Are overweight. ??? Have diabetes. ??? Have hepatitis. ??? Have a high triglyceride level. ??? Are . What are the signs or symptoms? Fatty liver disease often does not cause symptoms. If symptoms do develop, they can include: ??? Fatigue. ??? Weakness. ??? Weight loss. ??? Confusion. ??? Abdominal pain. ??? Nausea and vomiting. ??? Yellowing of your skin and the white parts of your eyes (jaundice). ??? Itchy skin. How is this diagnosed? This condition may be diagnosed by: ??? A physical exam and medical history. ??? Blood tests. ??? Imaging tests, such as an ultrasound, CT scan, or MRI. ??? A liver biopsy. A small sample of liver tissue is removed using a needle. The sample is then looked at under a microscope. How is this treated? Fatty liver disease is often caused by other health conditions. Treatment for fatty liver may involve medicines and lifestyle changes to manage conditions such as: ??? Alcoholism. ??? High cholesterol. ??? Diabetes. ??? Being overweight or obese. Follow these instructions at home: ??? Do not drink alcohol. If you have trouble quitting, ask your health care provider how to safely quit with the help of medicine or a supervised program. This is important to keep your condition from getting worse. ??? Eat a healthy diet as told by your health care provider. Ask your health care provider about working with a diet and applied behavior science specialist (dietitian) to develop an eating plan. ??? Exercise regularly. This can help you lose weight and control your cholesterol and diabetes. Talk to your health care provider about an exercise plan and which activities are best for you. ??? Take ldxw-fgq-wwiplqq and prescription medicines only as told by your health care provider. ??? Keep all follow-up visits as told by your health care provider. This is important. Contact a health care provider if: You have trouble controlling your: ??? Blood sugar. This is especially important if you have diabetes. ??? Cholesterol. ??? Drinking of alcohol. Get help right away if: ??? You have abdominal pain. ??? You have jaundice. ??? You have nausea and vomiting. ??? You vomit blood or material that looks like coffee grounds. ??? You have stools that are black, tar-like, or bloody. Summary ??? Fatty liver disease develops when too much fat builds up in the cells of your liver. ??? Fatty liver disease often causes no symptoms or problems. However, over time, fatty liver can cause inflammation that may lead to more serious liver problems, such as scarring of the liver (cirrhosis). ??? You are more likely to develop this condition if you abuse alcohol, are , are overweight, have diabetes, have hepatitis, or have high triglyceride levels. ??? Contact your health care provider if you have trouble controlling your weight, blood sugar, cholesterol, or drinking of alcohol. This information is not intended to replace advice given to you by your health care provider. Make sure you discuss any questions you have with your health care provider. Document Revised: 01/15/2018 Document Reviewed: 11/11/2017 [employer] Patient Education ?? 202 [employer] Nonalcoholic Fatty Liver Disease Diet, Adult Nonalcoholic fatty liver disease is a condition that causes fat to build up in and around the liver. The disease makes it harder for the liver to work the way that it should. Following a healthy diet can help to keep nonalcoholic fatty liver disease under control. It can also help to prevent or improve conditions that are associated with the disease, such as heart disease, diabetes, high blood pressure, and abnormal cholesterol levels. Along with regular exercise, this diet: ??? Promotes weight loss. ??? Helps to control blood sugar levels. ??? Helps to improve the way that the body uses insulin. What are tips for following this plan? Reading food labels Always check food labels for: ??? The amount of saturated fat in a food. You should limit your intake of saturated fat. Saturated fat is found in foods that come from animals, including meat and dairy products such as butter, cheese, and whole milk. ??? The amount of fiber in a food. You should choose high-fiber foods such as fruits, vegetables, and whole grains. Try to get 25???30 grams (g) of fiber a day. Cooking ??? When cooking, use heart-healthy oils that are high in monounsaturated fats. These include olive oil, canola oil, and avocado oil. ??? Limit frying or deep-frying foods. Cook foods using healthy methods such as baking, boiling, steaming, and grilling instead. Meal planning ??? You may want to keep track of how many calories you take in. Eating the right amount of calories will help you achieve a healthy weight. Meeting with a registered dietitian can help you get started. ??? Limit how often you eat takeout and fast food. These foods are usually very high in fat, salt, and sugar. ??? Use the glycemic index (GI) to plan your meals. The index tells you how quickly a food will raise your blood sugar. Choose low-GI foods (GI less than 55). These foods take a longer time to raise blood sugar. A registered dietitian can help you identify foods lower on the GI scale. Lifestyle ??? You may want to follow a Mediterranean diet. This diet includes a lot of vegetables, lean meats or fish, whole grains, fruits, and healthy oils and fats. What foods can I eat? Fruits Bananas. Apples. Oranges. Grapes. Papaya. [place]. Pomegranate. Kiwi. Grapefruit. Cherries. Vegetables Lettuce. Spinach. Peas. Beets. Cauliflower. Cabbage. Broccoli. Carrots. Tomatoes. Squash. Eggplant. Herbs. Peppers. Onions. Cucumbers. Dwarf sprouts. Yams and sweet potatoes. Beans. Lentils. Grains Whole wheat or whole-grain foods, including breads, crackers, cereals, and pasta. Stone-ground whole wheat. Unsweetened oatmeal. Bulgur. Barley. Quinoa. Brown or wild rice. [place] or whole wheat flour tortillas. Meats and other proteins Lean meats. Poultry. Tofu. Seafood and shellfish. Dairy Low-fat or fat-free dairy products, such as yogurt, cottage cheese, or cheese. Beverages Water. Sugar-free drinks. Tea. Coffee. Low-fat or skim milk. Milk alternatives, such as soy or almond milk. Real fruit juice. Fats and oils Avocado. Canola or olive oil. Nuts and nut butters. Seeds. Seasonings and condiments Mustard. Relish. Low-fat, low-sugar ketchup and barbecue sauce. Low-fat or fat-free mayonnaise. Sweets and desserts Sugar-free sweets. The items listed above may not be a complete list of foods and beverages you can eat. Contact a dietitian for more information. What foods should I limit or avoid? Meats and other proteins Limit red meat to 1???2 times a week. Dairy Full-fat dairy. Fats and oils Palm oil and coconut oil. Fried foods. Other foods Processed foods. Foods that contain a lot of salt or sodium. Sweets and desserts Sweets that contain sugar. Beverages Sweetened drinks, such as sweet tea, milkshakes, iced sweet drinks, and sodas. Alcohol. The items listed above may not be a complete list of foods and beverages you should avoid. Contact a dietitian for more information. Where to find more information The National [place] of Diabetes and Digestive and Kidney Diseases: niddk.nih.gov Summary ??? Nonalcoholic fatty liver disease is a condition that causes fat to build up in and around the liver. ??? Following a healthy diet can help to keep nonalcoholic fatty liver disease under control. Your diet should be rich in fruits, vegetables, whole grains, and lean proteins. ??? Limit your intake of saturated fat. Saturated fat is found in foods that come from animals, including meat and dairy products such as butter, cheese, and whole milk. ??? This diet promotes weight loss, helps to control blood sugar levels, and helps to improve the way that the body uses insulin. This information is not intended to replace advice given to you by your health care provider. Make sure you discuss any questions you have with your health care provider. Document Revised: 05/27/2019 Document Reviewed: 02/24/2019 [employer] Patient Education ?? 2020 [employer] Kidney Stones Kidney stones are rock-like masses [...] these instructions at home: Medicines ??? Take cuti-ahr-ncqubwk and prescription medicines only as told by your doctor. ??? Ask your doctor if the medicine prescribed to you requires you to avoid driving or using heavy machinery. Eating and drinking ??? Drink enough fluid to keep your pee pale yellow. You may be told to drink at least 8???10 glasses of water each day. This will [...] hours after a stone comes out. ? 8???12 weeks after a stone comes out, and every 6???12 months after that. ??? Strain your pee [...] provider. Document Revised: 06/21/2019 Document Reviewed: 06/21/2019 [employer] Patient Education ?? 2020 [employer] Dietary Guidelines to Help Prevent Kidney [...] Foods that contain 200???500 mg of calcium a serving include: ? 8 oz (237 mL) of milk, zrjhbcf-uxudmcglgczj-cvtfz milk, and calcium-fortifiedfruit juice. Calcium-fortified means that [...] of sardines or mackerel. Most people need 1,000???1,500 mg of calcium a day. Talk to [...] Spinach (cooked), rhubarb, beets, sweet potatoes, and Bangladeshi chard. ? Peanuts. ? Potato chips, cymro fries, and baked potatoes with skin on. ? Nuts and nut products. ? Chocolate. ??? If you regularly take a diuretic medicine, make sure to eat at least 1 or 2 servings of fruits or vegetables that are high in potassium each day. These include: ? Avocado. ? Banana. ? [place], prune, carrot, or tomato juice. ? Baked potato. ? Cabbage. ? Beans and split peas. Lifestyle ??? Drink enough fluid to keep your urine pale yellow. This is the most important thing you can do. Spread your fluid intake throughout the day. ??? If you drink alcohol: ? Limit how much you use to: ? 0???1 drink a day for women who are not . ? 0???2 drinks a day for men. ? Be aware of how much alcohol is in your drink. In the [place] one drink equals one 12 oz bottle of beer (355 mL), one 5 oz glass of wine (148 mL), or one 1?? oz glass of hard liquor (44 mL). [...] fish oil, or vitamin B6. ??? Take gvgz-coi-egaqnof and prescription medicines only as told by [...] Casseroles. Pizza. Lasagna. Frozen meals. Potato chips. Yemeni fries. The items listed above may not [...] provider. Document Revised: 01/26/2020 Document Reviewed: 01/26/2020 [employer] Patient Education ?? 2020 [employer] Emergency Awareness and Preventative Care STROKE [...] Assistance with quitting is available by contacting 9-157-ITFONOW. This is a free resource providing counseling, [...] CPR? There are two easy steps: Call 9-1-1 if you see a teen or adult [...] This Visit (last charted value for your 06/18/2021 visit) Hematology 06/19/2021 6:12 AM WBC: 5.3 K/uL -- Normal range between ( 3.6 and 9.5 ) RBC: 4.19 Million/uL -- Normal range between ( 4.20 and 5.70 ) Hct: 40.1 % -- Normal range between ( 40.1 and 51.0 ) Hgb: 13.4 g/dL -- Normal range between ( 13.5 and 17.3 ) Platelet Count: 239 K/uL -- Normal range between ( 163 and 369 ) MCH: 32.0 pg -- Normal range between ( 25.6 and 32.2 ) MCHC: 33.4 Gram/dL -- Normal range between ( 32.2 and 36.5 ) MCV: 95.7 fL -- Normal range between ( 79.0 and 94.8 ) Slide Review: Add Diff Man ALYC #: 2 K/uL RBC Morphology: Abnormal RDW: 12.2 % -- Normal range between ( 11.7 and 14.9 ) Macrocytosis: 1+ ANC #: 2 K/uL [place] Percent Man: 16 % -- Normal range between ( 4 and 5 ) Neutrophil Percent Man: 47 % -- Normal range between ( 50 and 65 ) Eos Percent Man: 3 % -- Normal range between ( 0 and 3 ) Platelet Ct Estimate: Adequate MPV: 9.3 fL -- Normal range between ( 9.4 and 12.4 ) Lymph Percent Man: 34 % -- Normal range between ( 24 and 44 ) 06/18/2021 8:45 AM Eos %: 1.6 % -- Normal range between ( 0.0 and 7.0 ) [place] #: 0.94 K/uL -- Normal range between ( 0.16 and 1.00 ) Eos #: 0.13 x10(3)/uL -- Normal range between ( 0.00 and 0.80 ) [place] %: 11.5 % -- Normal range between ( 3.0 and 9.0 ) Baso %: 1.0 % -- Normal range between ( 0.0 and 1.5 ) Baso #: 0.08 x10(3)/uL -- Normal range between ( 0.00 and 0.20 ) Neut %: 64.0 % -- Normal range between ( 34.0 and 71.0 ) Neut #: 5.21 K/uL -- Normal range between ( 1.56 and 6.13 ) Lymph %: 21.5 % -- Normal range between ( 19.3 and 53.1 ) Lymph #: 1.75 x10(3)/uL -- Normal range between ( 1.00 and 3.90 ) IG#: 0.03 x10(3)/uL -- Normal range between ( 0.00 and 0.05 ) IG%: 0.40 % -- Normal range between ( 0.00 and 0.60 ) Urinalysis 06/18/2021 11:27 AM Urine Nitrite: Negative Urine Leukocyte Esterase: Negative Urine Appearance: Clear Urine Glucose Dipstick: Negative Urine Blood Dipstick: Negative Urine Urobilinogen Dipstick: 0.2 EU/dL Urine Protein Dipstick: Negative Ur Squamous Epithelial Cells: 0-2 /HPF Urine Color: Yellow Ur WBC: 0-2 /HPF Urine Ketones Dipstick: Negative Urine pH Dipstick: 5.5 -- Normal range between ( 6.0 and 8.0 ) Urine Bilirubin Dipstick: Negative Urine Specific [place]: 1.011 -- Normal range between ( 1.005 and 1.030 ) Urine Type.: U CleanCatch Urine Culture if Indicated: Not Indicated General Chemistry 06/19/2021 6:12 AM Creatinine Level: 0.90 mg/dL -- Normal range between ( 0.70 and 1.30 ) Sodium Level: 138 mmol/L -- Normal range between ( 136 and 146 ) Potassium Level: 4.5 mmol/L -- Normal range between ( 3.5 and 5.1 ) Chloride Level: 104 mmol/L -- Normal range between ( 102 and 112 ) Carbon Dioxide Level: 31 mmol/L -- Normal range between ( 21 and 32 ) Anion Gap: 8 -- Normal range between ( 9 and 20 ) Bun/Creatinine: 13.3 -- Normal range between ( 8.0 and 20.0 ) Calcium Level: 9.3 mg/dL -- Normal range between ( 8.4 and 10.1 ) eGFR : >60 mL/min/1.73m2 eGFR NonAfrican: >60 mL/min/1.73m2 Glucose Level: 106 mg/dL -- Normal range between ( 74 and 106 ) Blood Urea Nitrogen: 12 mg/dL -- Normal range between ( 7 and 22 ) 06/18/2021 8:45 AM Bilirubin Total: 0.4 mg/dL -- Normal range between ( 0.2 and 1.2 ) A/G Ratio: 1.0 -- Normal range between ( 1.1 and 2.5 ) ALT: 73 Units/Liter -- Normal range between ( 16 and 61 ) AST: 49 Units/Liter -- Normal range between ( 5 and 37 ) Globulin: 4.2 Gram/dL -- Normal range between ( 1.5 and 4.5 ) Alk Phos: 142 Units/Liter -- Normal range between ( 27 and 136 ) Protein Total: 8.5 Gram/dL -- Normal range between ( 6.4 and 8.2 ) Albumin Level: 4.3 Gram/dL -- Normal range between ( 3.4 and 5.0 ) Lipase Level: 136 Units/Liter -- Normal range between ( 73 and 393 ) Computed Tomography 06/18/2021 9:[address] Abdomen Pelvis WO: CT Abdomen Pelvis WO Patient Name:TAY THOMAS I have received and understand this information and was given the opportunity to ask questions. Patient/Dolphin Trainer Name: Patient/Dolphin Trainer Signature: Relationship to Patient: Clinician/Hospital Dolphin Trainer Signature: Date: documented in this encounter Plan of Treatment Not on file documented as of this encounter Visit Diagnoses Not on filedocumented in this encounter Care Teams Vault Teller Relationship Specialty Start Date End Date Emily Estrada [address] [facility] By [place] [address] PCP - General 05/14/22 06/09/24 [facility], Provider Not In The System, [place] [address] PCP - General 07/18/24 Lolita Belcher [address] [place] [address] [facility], [address] [address] Advanced Registered Nurse Practitioner Primary Care 06/10/24 documented as of this encounter
--- OUTSIDE RECORDS SUMMARY | 2024-08-08 10:54 | XMS_ITS | Encounter Summary ---
Author Organization [employer] Address [address] [place] [address] Care Team Providers Care Cable Dispatcher Name Role Phone Emily Estrada Primary Care Provider Unavail able [facility], Provider Not In The System Primary Care Provider Unavailable Encounter Details Date Type Department Care Team (Late st Contact Info) Description 06/18/2021 Transcribed Document [facility] [place] Family Medicine [address] [place] [address] ProviderJodie MD [address] [place] [address] Social History Tobacco Use Types Packs/Day Years [...] Historical ProviderMD - 06/18/2021 8:28 AM CDT Alexander Suicide Severity Rating Scale (C-SSRS) Entered On: 06/18/2021 8:58 EDT Performed On: 06/18/2021 8:56 EDT by EL SIMMS RN Alexander Suicide Severity Rating Scale (C-SSRS) CSSRS Past Month Wish to be : No CSSRS Past Month Suicidal Thoughts : No CSSRS Lifetime Suicide Behavior : No Suicide Severity Rating Score : 0 Suicide Severity Rating : No Additional Care Required at this time EL SIMMS RN - 06/18/2021 8:56 EDT documented in this encounter Plan of Treatment Not on file documented as of this encounter Visit Diagnoses Not on filedocumented in this encounter Care Teams Cable Dispatcher Relationship Specialty Start Date End Date MavisBarEmily ordonez [address] [place] [address] [place] [address] PCP - General 05/14/22 06/09/24 [facility], Provider Not In The System, [place] [address] PCP - General 07/18/24 Lolita Belcher [address] [place] [address], [address] [place] [address] Advanced Registered Nurse Practitioner Primary Care 06/10/24 documented as of this encounter
--- OUTSIDE RECORDS SUMMARY | 2024-08-08 10:54 | XMS_ITS | Encounter Summary ---
Author Organization [employer] Address [address] [place] [address] Care Team Providers Care Architectural Draftsperson Name Role Phone Emily Estrada Primary Care Provider Unavail able [facility], Provider Not In The System Primary Care Provider Unavailable Encounter Details Date Type Department Care Team (Late st Contact Info) Description 06/18/2021 Transcribed Document [facility] [place] Family Medicine [address] [place] [address] ProviderJodie MD [address] [place] [address] Social History Tobacco Use Types Packs/Day Years [...] Historical ProviderMD - 06/18/2021 8:28 AM CDT [place] Violence Assessment Entered On: 06/18/2021 8:58 EDT Performed On: 06/18/2021 8:56 EDT by EL SIMMS RN [place] Violence Assessment Bro[place] Violence Checklist of Symptoms : None Bro[place] Violence Symptoms Subtotal : 0 [place] Violence Symptoms Indicator : Low risk (0) [place] Interventions : [place] precautions for safety used EL SIMMS RN - 06/18/2021 8:56 EDT documented in this encounter Plan of Treatment Not on file documented as of this encounter Visit Diagnoses Not on filedocumented in this encounter Care Teams Architectural Draftsperson Relationship Specialty Start Date End Date Emily Estrada [address] [phone] PCP - General 05/14/22 06/09/24 [facility], Provider Not In The System, [place] [address] PCP - General 07/18/24 Lolita Belcher [address] [place] [address], [address] [place] [address] Advanced Registered Nurse Practitioner Primary Care 06/10/24 documented as of this encounter
--- OUTSIDE RECORDS SUMMARY | 2024-08-08 10:54 | XMS_ITS | Encounter Summary ---
Author Organization [employer] Address [address] [place] [address] Care Team Providers Care Biofuels Technology Development Manager Name Role Phone Emily Estrada Primary Care Provider Unavail able [facility], Provider Not In The System Primary Care Provider Unavailable Encounter Details Date Type Department Care Team (Late st Contact Info) Description 06/19/2021 Transcribed Document [facility] [place] [facility] [place] [address] ProviderJodie MD [address] [place] [address] Social History Tobacco Use Types Packs/Day Years Used Date Smoking Tobacco: Never Assessed Sex and Gender Information Value Date Recorded Sex Assigned at Not on file Legal Sex Male 4:10 PM CDT Gender Identity Not on file Sexual Orientation Straight 05/21/2022 1: 57 PM CDT documented as of this encounter Miscellaneous Notes * Cerner Conversion Note - Historical ProviderMD - 06/19/2021 2:40 PM CDT Patient Resource Center Entered On: 06/19/2021 14:41 EDT Performed On: 06/19/2021 14:40 EDT by Lisa Freedman, BREAST TRIMMER Patient Resource Center Provider Status : EST Other Established Provider Name : Lalo España Patient Phone Number : [phone] Patient Insurance Type : Medicare Source of Referral : Case management Location of Patient : Case management referral Primary Care Scheduled : No Specialty Care Scheduled : Yes Specialty Type Scheduled2 : Urology Urology Provider Name : Kareem Young Urology Appointment Date/Grace : 06/26/2021 16:15 EDT Qualify for Diabetes and/or Nutrition Referral : No Wound Care Appointment Made : No Why Patient Visited ED- Specialty spent : Other How Patient Arrived at ED : Other Primary Language : Cameroonian Patient Resource Center Comment : URO appt made, PCP appt is only if needed by pt Follow Up Needed : No Lisa Freedman, BREAST TRIMMER - 06/19/2021 14:40 EDT Electronically signed by Jane [facility] Conversion Box Builder Cerner at 06/03/2022 10:36 PM CDT documented in this encounter Plan of Treatment Not on file documented as of this encounter Visit Diagnoses Not on filedocumented in this encounter Care Teams Biofuels Technology Development Manager Relationship Specialty Start Date End Date Emily Estrada [address] [place] [phone] PCP - General 05/14/22 06/09/24 [facility], Provider Not In The System, [place] [address] PCP - General 07/18/24 Lolita Belcher [address] [place] [address], [address] [address] Advanced Registered Nurse Practitioner Primary Care 06/10/24 documented as of this encounter
--- OUTSIDE RECORDS SUMMARY | 2024-08-08 10:54 | XMS_ITS | Encounter Summary ---
Author Organization [employer] Address [address] [place] [address] Care Team Providers Care Software Quality Assurance Specialist Name Role Phone Emily Estrada Primary Care Provider Unavail able [facility], Provider Not In The System Primary Care Provider Unavailable Encounter Details Date Type Department Care Team (Late st Contact Info) Description 06/18/2021 Transcribed Document [facility] [place] [facility] [place] [address] ProviderJodie MD [address] [place] [address] Social History Tobacco Use Types Packs/Day Years Used Date Smoking Tobacco: Never Assessed Sex and Gender Information Value Date Recorded Sex Assigned at Not on file Legal Sex Male 4:10 PM CDT Gender Identity Not on file Sexual Orientation Straight 05/21/2022 1: 57 PM CDT documented as of this encounter Miscellaneous Notes * Cerner Conversion Note - Historical ProviderMD - 06/18/2021 5:00 PM CDT Chart Check - Review Order Profile Entered On: 06/18/2021 19:08 EDT Performed On: 06/18/2021 17:00 EDT by Desiree Cuevas LPN Chart Check Powerplans Initiated/Discontinued as Appropriate : Yes All Active Orders Reviewed : Yes Desiree Cuevas LPN - 06/18/2021 19:08 EDT documented in this encounter Plan of Treatment Not on file documented as of this encounter Visit Diagnoses Not on filedocumented in this encounter Care Teams Software Quality Assurance Specialist Relationship Specialty Start Date End Date Emily Estrada [address] [facility] [place] [address] PCP - General 05/14/22 06/09/24 [facility], Provider Not In The System, [place] [address] PCP - General 07/18/24 Lolita Belcher [address] [place] [address] [facility], [address] [place] [id number] Advanced Registered Nurse Practitioner Primary Care 06/10/24 documented as of this encounter
--- OUTSIDE RECORDS SUMMARY | 2024-08-08 10:54 | XMS_ITS | Encounter Summary ---
Author Organization [employer] Address [address] [place] [address] Care Team Providers Care Shank Faker Name Role Phone Emily Estrada Primary Care Provider Unavail able [facility], Provider Not In The System Primary Care Provider Unavailable Encounter Details Date Type Department Care Team (Late st Contact Info) Description 06/18/2021 Transcribed Document [facility] [place] [facility] [place] [address] ProviderJodie MD [address] [place] [address] Social History Tobacco Use Types Packs/Day Years Used Date Smoking Tobacco: Never Assessed Sex and Gender Information Value Date Recorded Sex Assigned at Not on file Legal Sex Male 4:10 PM CDT Gender Identity Not on file Sexual Orientation Straight 05/21/2022 1: 57 PM CDT documented as of this encounter Miscellaneous Notes * Cerner Conversion Note - Historical ProviderMD - 06/18/2021 2:24 PM CDT ED Event Note Entered On: 06/18/2021 14:24 EDT Performed On: 06/18/2021 14:24 EDT by EL SIMMS RN ED Event Note ED Event Date/Time : 06/18/2021 14:24 EDT ED Event Location : Assigned room ED Description of Event : report called to Yara SALCEDO on 4A. Will transfer shortly. EL SIMMS RN - 06/18/2021 14:24 EDT documented in this encounter Plan of Treatment Not on file documented as of this encounter Visit Diagnoses Not on filedocumented in this encounter Care Teams Shank Faker Relationship Specialty Start Date End Date DayAbebaBarArsalanEmily [address] [facility] [address] [place] [address] PCP - General 05/14/22 06/09/24 [facility], Provider Not In The System, [place] [address] PCP - General 07/18/24 Lolita Belcher [address], [address] [place] [address] Advanced Registered Nurse Practitioner Primary Care 06/10/24 documented as of this encounter
--- OUTSIDE RECORDS SUMMARY | 2024-08-08 10:54 | XMS_ITS | Encounter Summary ---
Author Organization [employer] Address [address] [place] [address] Care Team Providers Care Director Of Mobile Marketing Name Role Phone Emily Estrada Primary Care Provider Unavail able [facility], Provider Not In The System Primary Care Provider Unavailable Encounter Details Date Type Department Care Team (Late st Contact Info) Description 06/18/2021 Transcribed Document [facility] [place] [facility] [address] ProviderJodie MD [address] [place] [address] Social History Tobacco Use Types Packs/Day Years Used Date Smoking Tobacco: Never Assessed Sex and Gender Information Value Date Recorded Sex Assigned at Not on file Legal Sex Male 4:10 PM CDT Gender Identity Not on file Sexual Orientation Straight 05/21/2022 1: 57 PM CDT documented as of this encounter Miscellaneous Notes * Cerner Conversion Note - Historical ProviderMD - 06/18/2021 11:46 AM CDT Pain Assessment Entered On: 06/18/2021 12:29 EDT Performed On: 06/18/2021 12:28 EDT by EL SIMMS RN Intervention Information: HYDROmorphone Performed by EL SIMMS RN on 06/18/2021 11:52:00 EDT HYDROmorphone,1mg IV Push,Peripheral Line 1 Pain Assessment Pain Assessment : Follow-up assessment Pain Scale Used : FACES EL SIMMS RN - 06/18/2021 12:28 EDT Pain Scale Intensity : 3 EL SIMMS RN - 06/18/2021 12:28 EDT Image 4 - Images currently included in the form version of this document have not been included in the text rendition version of the form. documented in this encounter Plan of Treatment Not on file documented as of this encounter Visit Diagnoses Not on filedocumented in this encounter Care Teams Director Of Mobile Marketing Relationship Specialty Start Date End Date Emily Estrada [address] [place] [phone] PCP - General 05/14/22 06/09/24 [facility], Provider Not In The System, [place] [address] PCP - General 07/18/24 Lolita Belcher [address], [address] [place] [address] Advanced Registered Nurse Practitioner Primary Care 06/10/24 documented as of this encounter
--- OUTSIDE RECORDS SUMMARY | 2024-08-08 10:55 | XMS_ITS | Encounter Summary ---
Author Organization [employer] Address [address] [place] [address] Care Team Providers Care Data Processing Systems Project Planner Name Role Phone Emily Estrada Primary Care Provider Unavail able [facility], Provider Not In The System Primary Care Provider Unavailable Encounter Details Date Type Department Care Team (Late st Contact Info) Description 07/30/2020 Transcribed Document [facility] [place] [facility] [place] [address] ProviderJodie MD [address] [place] [address] Social History Tobacco Use Types Packs/Day Years Used Date Smoking Tobacco: Never Assessed Sex and Gender Information Value Date Recorded Sex Assigned at Not on file Legal Sex Male 4:10 PM CDT Gender Identity Not on file Sexual Orientation Straight 05/21/2022 1: 57 PM CDT documented as of this encounter Miscellaneous Notes * Cerner Conversion Note - Jodie Gottlieb MD - 07/30/2020 6:30 PM CDT Patient Education Materials Follows: Laser Therapy for Kidney Stones, Care After [...] these instructions at home: Medicines ??? Take effo-bsc-dvmhikg and prescription medicines only as told by [...] or treat constipation, such as: ? Take zwun-rpt-moxbdxp or prescription medicines. ? Eat foods that [...] of blood in your urine. ??? Take pwmk-kem-fnqmqdi and prescription medicines only as told by [...] provider. Document Revised: 10/14/2018 Document Reviewed: 10/14/2018 [employer] Patient Education ? 2020 [employer] Procedures Outpatient Surgery, Adult, Care After These instructions [...] and water are not available, use hand accounting coordinator. ? Change your dressing as told by [...] or a bad smell. Medicines ??? Take rknr-cfp-cfodhll and prescription medicines only as told by [...] provider. Document Revised: 05/03/2018 Document Reviewed: 05/25/2016 Elsevier Patient Education ? 2020 [email or web address]. Urology Ureteroscopy Ureteroscopy is a procedure to check [...] including vitamins, herbs, eye drops, creams, and amkq-mkt-eqiasxj medicines. ??? Any problems you or family [...] Up to 2 hours before the procedure ? you may continue to drink clear liquids, such as water, clear fruit juice, black coffee, and plain tea. Eating and drinking restrictions Follow instructions from your health care provider about eating and drinking, which may include: ??? 8 hours before the procedure ? stop eating heavy meals or foods such as meat, fried foods, or fatty foods. ??? 6 hours before the procedure ? stop eating light meals or foods, such as toast or cereal. ??? 6 hours before the procedure ? stop drinking milk or drinks that contain milk. ??? 2 hours before the procedure ? stop drinking clear liquids. Medicines ??? Ask [...] You may be asked to urinate. ??? Do?not drive for 24 hours if you were given a sedative. This information is not intended to replace advice given to you by your health care provider. Make sure you discuss any questions you have with your health care provider. Document Revised: 01/15/2018 Document Reviewed: 11/14/2016 ElseElectroCore Patient Education ? 2020 [email or web address]. Electronically signed by Denia Lara Conversion Research Environmental Scientist Cerner at 06/03/2022 10:38 PM CDT documented in this encounter Plan of Treatment Not on file documented as of this encounter Visit Diagnoses Not on filedocumented in this encounter Care Teams Data Processing Systems Project Planner Relationship Specialty Start Date End Date Emily Estrada [address] [place] [address] [place] [address] PCP - General 05/14/22 06/09/24 [facility], Provider Not In The System, [place] [address] PCP - General 07/18/24 Lolita Belcher [address] [place] [address] [facility], [address] [place] [address] Advanced Registered Nurse Practitioner Primary Care 06/10/24 documented as of this encounter
--- OUTSIDE RECORDS SUMMARY | 2024-08-08 10:55 | XMS_ITS | Encounter Summary ---
Author Organization [employer] Address [address] [place] [address] Care Team Providers Care Ground Wood Supervisor Name Role Phone Emily Estrada Primary Care Provider Unavail able [facility], Provider Not In The System Primary Care Provider Unavailable Encounter Details Date Type Department Care Team (Late st Contact Info) Description 07/30/2020 Transcribed Document [facility] [place] [address] [place] [address] ProviderJodie MD [address] [place] [address] Social History Tobacco Use Types Packs/Day Years Used Date Smoking Tobacco: Never Assessed Sex and Gender Information Value Date Recorded Sex Assigned at Not on file Legal Sex Male 4:10 PM CDT Gender Identity Not on file Sexual Orientation Straight 05/21/2022 1: 57 PM CDT documented as of this encounter Miscellaneous Notes * Cerner Conversion Note - Historical ProviderMD - 07/30/2020 2:17 PM CDT PAT Adult Entered On: 07/30/2020 14:23 EDT Performed On: 07/30/2020 14:17 EDT by Yadi Del Angel RN Height and Weight, Clinical Dosing Height Source : Measured Height Entry Format : [place] Height, Feet : 6 ft(Converted to: 183 cm, 72 Inch) Height, Inches : 1 Inch(Converted to: 0 ft 1 Inch, 2.54 cm) Clinical Height : 185.42 cm Weight Source : Standing scale Weight Entry Format : [place] Clinical Dosing Weight : 109.86 kg Weight, Pounds : 241.7 lb Body Surface Area (BSA) : 2.33 m2 Body Mass Index : 32 kg/m2 (HI) [place] Body Weight : 79 kg Yadi Del Angel RN - 07/30/2020 14:17 EDT Health Histories Smoking Status : Cigars or pipes daily within last 30 days Smokeless Tobacco Status : Never Desires Tobacco Cessation Medication : Yes Yadi Del Angel RN - 07/30/2020 14:17 EDT Social History (As Of: 07/30/2020 14:23:52 EDT) Tobacco: Smoking Status Current every day smoker. Cigars/pipes daily Smoking Frequency Within Last 30 Days. Use in Last 12 Months: Cigars. Years of Use: 10. (Last Updated: 12/11/2016 01:10:46 EDT by Roseanna Humphrey RN) Alcohol: Days/Week: 1. Total Drinks/Week: 1. Use in Last 12 Months: Yes. Alcohol Use Frequency Weekly. (Last Updated: 07/30/2020 14:16:03 EDT by Yadi Del Angel RN) Alcohol Use History Yes. Total Drinks/Week: 5. Use in Last 12 Months: Yes. (Last Updated: 12/28/2018 09:32:16 EST by BETTY HOPKINS RN) Substance Abuse: Drug Use Hx: No. Use in Last 12 Months: No. (Last Updated: 12/11/2016 01:11:26 EDT by Roseanna Humphrey RN) Infectious Disease History Has the patient ever been tested for COVID-19? : Yes, Patient stated results pending Where was the COVID-19 Testing completed? : [facility] Date of COVID-19 test known? : Yes Date of COVID-19 Test : 07/29/2020 EDT Does patient have symptoms of COVID-19? : No COVID19 Screening : No Experiencing Infectious Disease Symptoms : No symptoms Physical contact outside [place] in the last 30 days : No Infectious Disease History : Chicken pox/Shingles, Hepatitis C, Influenza, Measles, Mumps Tuberculosis Symptoms : None Yadi Del Angel RN - 07/30/2020 14:17 EDT COVID19 PreProcedure Screening Is this an Emergent or Add on Procedure? : No Date PreProcedure COVID-19 test known? : Yes Date of PreProcedure COVID-19 : 07/29/2020 EDT Has patient been isolated since the test : No Exposed to COVID19 symptoms since test? : No Yadi Del Angel RN - 07/30/2020 14:17 EDT Anesthesia/Transfusion History Family History of Anesthesia Reaction : No prior transfusion(s) Transfusion History : Prior anesthesia without reaction Family History of Anesthesia Reaction : None Yadi Del Angel RN - 07/30/2020 14:17 EDT Advance Directive Patient has Advance Directive *Q : No, patient refuses Advance Directive information Yadi Del Angel RN - 07/30/2020 14:17 EDT [place] Suicide Severity Rating Scale (C-SSRS) CSSRS Past Month Wish to be : No CSSRS Past Month Suicidal Thoughts : No CSSRS Lifetime Suicide Behavior : No Suicide Severity Rating Score : 0 Suicide Severity Rating : No Additional Care Required at this time Yadi Del Angel RN - 07/30/2020 14:17 EDT Psychosocial History Currently in Unsafe Situation : No Yadi Del Angel RN - 07/30/2020 14:17 EDT General Info Support Person/Pt Rep Name : Kelsie Germain Support Person/Pt Rep Contact Information : [phone] Emergency Contact #1 : Kelsie Germain Emergency Contact #1 Emergency Contact #1 Relationship : Emergency Contact #2 : ' Emergency Contact #2 Phone Number : ' Emergency Contact #2 Relationship : ' Public Transportation Inspector Needed : No Yadi Del Angel RN - 07/30/2020 14:34 EDT Want Family/Rep/Phys Notified of Admit : No Primary Language : Macedonian Communication Barrier : None Yadi Del Angel RN - 07/30/2020 14:17 EDT Douglas Scale Douglas Sensory Perception : No impairment Douglas Moisture : Occasionally moist Douglas Activity : Walks frequently Douglas Mobility : No limitation Douglas Nutrition : Adequate Douglas Friction and Shear : No apparent problem Douglas Score : 21 Yadi Del Angel RN - 07/30/2020 14:34 EDT Sleep Apnea Risk Assmt Hx of [...] Sleep Apnea Risk Level Score : 5 Yadi Del Angel, MATIAS - 07/30/2020 14:34 EDT documented in this encounter Plan of Treatment Not on file documented as of this encounter Visit Diagnoses Not on filedocumented in this encounter Care Teams Ground Wood Supervisor Relationship Specialty Start Date End Date Emily Estrada [address] [facility] [address] [place] [address] PCP - General 05/14/22 06/09/24 [facility], Provider Not In The System, [place] [address] PCP - General 07/18/24 Lolita Belcher [address] [place] [address], [address] [place] [id number] Advanced Registered Nurse Practitioner Primary Care 06/10/24 documented as of this encounter
--- OUTSIDE RECORDS SUMMARY | 2024-08-08 10:55 | XMS_ITS | Encounter Summary ---
Author Organization [employer] Address [address] [place] [address] Care Team Providers Care Strap Stitcher Name Role Phone Emily Estrada Primary Care Provider Unavail able [facility], Provider Not In The System Primary Care Provider Unavailable Encounter Details Date Type Department Care Team (Late st Contact Info) Description 07/30/2020 Transcribed Document [facility] [place] [facility] [place] [address] ProviderJodie MD [address] [place] [address] Social History Tobacco Use Types Packs/Day Years [...] Historical ProviderMD - 07/30/2020 7:15 PM CDT [facility] Main OR Preop Summary Primary Physician: VLDA LEEP MD-URO Finalized Date/Time: 08/15/20 14:01:29 Pt. Name: TAY THOMAS /Sex: 1955 Male Med Rec #: [id number] Physician: VLAD LEPE MD-URO Financial #: [id number] Pt. Type: O Room/Bed: Admit/Disch: 07/30/20 13:09:00 - Institution: [facility] PreOp Case Times Entry 1 In Preop 07/30/20 13:23:00 Ready for Holding n/a Room Patient Ready for 07/30/20 15:00:00 Surgery Patient Out of Preop 07/30/20 19:03:00 Patient Out of n/a Holding Room Last Modified By: Khloe Barclay Nurse Anode Worker 08/15/20 14:01:27 [facility] PreOp Case Times Audit 08/15/20 14:01:27 Funeral Location Manager: [id number] Modifier: [id number] <+> 1 Patient Out of Preop Finalized By: Khloe Barclay, Nurse Marine Service Operator Signatures Signed By: Khloe Barclay Nurse 08/15/20 14:01 Electronically signed by Jane [facility] Conversion Rigger Up Cerner at 06/03/2022 10:36 PM CDT documented in this encounter Plan of Treatment Not on file documented as of this encounter Visit Diagnoses Not on filedocumented in this encounter Care Teams Strap Stitcher Relationship Specialty Start Date End Date Emily Estrada [address] [place] [phone] PCP - General 05/14/22 06/09/24 [facility], Provider Not In The System, [place] [address] PCP - General 07/18/24 Lolita Belcher [address] [place] [address], [address] [place] [address] Advanced Registered Nurse Practitioner Primary Care 06/10/24 documented as of this encounter
--- OUTSIDE RECORDS SUMMARY | 2024-08-08 10:55 | XMS_ITS | Data Portability ---
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 [email or web address] Not available 07/12/2024 20:00:51 07/26/2024 07/26/2024 68-year-old male with a history [...] month for further evaluation and management refinement. [email or web address] Not available 07/26/2024 13:02:15 Plan of Treatment Reminders Order Date Submit Date Provider Last Modified By Organization Details Last Modified Time Details Appointments RECHECK 2024 01:45P Twan PUENTE PA-C Not available Not available Not available Lab kidney stone analysis 2024 025 [facility], [address] [place] [address], [id number], 07/29/2024 01:34:07 PTH (parathyr oid hormone), intact + calcium, serum or plasma 2024 025 [facility], [address] [place] [address], [id number], 07/26/2024 15:04:10 unlisted lab - urology custom panel 2024 025 [facility], [address] [place] [address], [id number], 07/26/2024 15:10:06 urinalysi s panel, auto 2024 025 [email or web address] 4 [facility], [address], [place], [address], 07/26/2024 09:19:12 urinalysi s panel, auto 2024 025 [email or web address] 4 [facility], [address], [place], [address], 07/12/2024 14:16:00 culture, urine 2024 025 [facility], [address] [place] [address], [id number], 07/13/2024 14:38:02 CBC w/ auto diff 2024 025 [facility], [address] [place] [address], [id number], 07/12/2024 18:57:35 BMP, serum or plasma 2024 025 [facility], [address] [place] [address], [id number], 07/12/2024 19:16:21 surgical pathology study 2024 025 [facility], [address] [place] [address], [id number], 04/12/2024 17:44:22 Referral None recorded. Procedures None recorded. Surgeries None recorded. Imaging CT, abdomen + pelvis, w/o contrast 2024 025 [facility], [address] [place], [address], 07/12/2024 15:03:06 MRI, cervical spine, w/o contrast 2023 024 [facility], [address] [place], [address], 12/15/2023 17:11:59 Medication Orders tamsulosi n 0.4 mg capsule 2024 025 [facility], [address] [place] [address], [id number], 07/28/2024 10:27:27 ceftriaxo ne 1 gram solution for injection 2024 025 [email or web address] 4 [facility], [address] [place] [address], [id number], 07/12/2024 16:27:48 diclofena c sodium 75 mg tablet,de layed release 2023 024 [facility], [address] [place] [address], [id number], 11/23/2023 09:45:15 Patient TargetsNo targets recorded. Patient Instructions Encounter Date Encounter Id Patient Instructions Last Modified By Organization Details Last Modified Time 04/11/2024 [id number] - Benign moles a nd keratoses seen on exam today. - SPF [...] worrisome lesions [email or web address] Not available 04/11/2024 14:52:24 07/12/2024 [id number] - Take prescribe d antibiotics as directed. [...] the need for quick escalation if necessary. [email or web address] Not available 07/12/2024 19:57:57 07/26/2024 [id number] - Continue takin g Tamsulosin as prescribed. [...] Abnormal Flag Note LastModifiedBy Organization Detail LastModifiedTime 05/11/19 24 05/11/2023 urina lysis panel , auto Unknown Analyte Clean Catch Not Available [facility] [address], [place], [address], 05/11/2023 12:21:10 05/11/19 24 05/11/2023 urina lysis panel , auto Unknown Analyte Yellow Not Available [facility] [address], [place], [address], 05/11/2023 12:21:10 05/11/19 24 05/11/2023 urina lysis panel , auto Unknown Analyte Clear Not Available [facility] [address], [place], [address], 05/11/2023 12:21:10 05/11/19 24 05/11/2023 urina lysis panel , auto Unknown Analyte 1.015 Not Available [facility] [address], [place], [address], 05/11/2023 12:21:10 05/11/19 24 05/11/2023 urina lysis panel , auto Unknown Analyte 1.003- 1.035 Not Available [facility] [address], [place], [address], 05/11/2023 12:21:10 05/11/19 24 05/11/2023 urina lysis panel , auto Unknown Analyte 5.0 Not Available [facility] [address], [place], [address], 05/11/2023 12:21:10 05/11/19 24 05/11/2023 urina lysis panel , auto Unknown Analyte 5.0-8. 0 Not Available [facility] [address], [place], [address], 05/11/2023 12:21:10 05/11/19 24 05/11/2023 urina lysis panel , auto Unknown Analyte 25 Elvia/ul Trace Not Available [facility] [address], [place], [address], 05/11/2023 12:21:10 05/11/19 24 05/11/2023 urina lysis panel , auto Unknown Analyte Negati ve Not Available [facility] [address], [place], [address], 05/11/2023 12:21:10 05/11/19 24 05/11/2023 urina lysis panel , auto Unknown Analyte Negati ve Not Available [facility] [address], [place], [address], 05/11/2023 12:21:10 05/11/19 24 05/11/2023 urina lysis panel , auto Unknown Analyte Negati ve Not Available [facility] [address], [place], [address], 05/11/2023 12:21:10 05/11/19 24 05/11/2023 urina lysis panel , auto Unknown Analyte Negati ve Not Available [facility] [address], [place], [address], 05/11/2023 12:21:10 05/11/19 24 05/11/2023 urina lysis panel , auto Unknown Analyte Negati ve Not Available [facility] [address], [place], [address], 05/11/2023 12:21:10 05/11/19 24 05/11/2023 urina lysis panel , auto Unknown Analyte Normal Not Available [facility] [address], [place], [address], 05/11/2023 12:21:10 05/11/19 24 05/11/2023 urina lysis panel , auto Unknown Analyte Normal Not Available [facility] [address], [place], [address], 05/11/2023 12:21:10 05/11/19 24 05/11/2023 urina lysis panel , auto Unknown Analyte 15 mg/dl (Sm) Not Available [facility] [address], [place], [address], 05/11/2023 12:21:10 05/11/19 24 05/11/2023 urina lysis panel , auto Unknown Analyte Negati ve Not Available [facility] [address], [place], [address], 05/11/2023 12:21:10 05/11/19 24 05/11/2023 urina lysis panel , auto Unknown Analyte 1 mg/dl Not Available [facility] [address], [place], [address], 05/11/2023 12:21:10 05/11/19 24 05/11/2023 urina lysis panel , auto Unknown Analyte Normal 1 mg/dl Not Available [facility] [address], [place], [address], 05/11/2023 12:21:10 05/11/19 24 05/11/2023 urina lysis panel , auto Unknown Analyte Negati ve Not Available [facility] [address], [place], [address], 05/11/2023 12:21:10 05/11/19 24 05/11/2023 urina lysis panel , auto Unknown Analyte Negati ve Not Available [facility] [address], [place], [address], 05/11/2023 12:21:10 05/11/19 24 05/11/2023 urina lysis panel , auto Unknown Analyte 250 Sera/ul Not Available [facility] [address], [place], [address], 05/11/2023 12:21:10 05/11/19 24 05/11/2023 urina lysis panel , auto Unknown Analyte Negati ve Not Available [facility] [address], [place], [address], 05/11/2023 12:21:10 04/11/19 25 04/11/2024 SURGI LORETO [...] NA Gross Descr iptio n: A) Delmis nt's name and date of verif ied. Recei [...] casse tte label ed A1. B) Delmis nt's name and date of verif ied. Recei [...] 17:44 Page 1 of 1 Not Available [facility] [address] [place] [address], [address], 04/12/2024 17:44:22 07/13/1907/12/2024 COMPL ETE BLOOD COUNT white blood cells 7.6 10*3/ uL 3.8-10 .8 normal Not Available [facility] [address] [place] [address], [address], 07/12/2024 18:57:35 07/13/19 25 07/12/2024 COMPL ETE BLOOD COUNT red blood cells 4.56 10*6/ uL 4.20-5 .80 normal Not Available [facility] [address] [place] [address], [address], 07/12/2024 18:57:35 07/13/19 25 07/12/2024 COMPL ETE BLOOD COUNT hemoglobin 14.0 g/dL 14.0-1 8.0 normal Not Available [facility] [address] [place] [address], [address], 07/12/2024 18:57:35 07/13/19 25 07/12/2024 COMPL ETE BLOOD COUNT hematocrit 41.3 % 40.0-5 2.0 normal Not Available [facility] [address] [place] [address], [address], 07/12/2024 18:57:35 07/13/1907/12/2024 COMPL ETE BLOOD COUNT MCV 91 fL 80-100 normal Not Available [facility] [address] [place] [address], [address], 07/12/2024 18:57:35 07/13/1907/12/2024 COMPL ETE BLOOD COUNT MCH 31 pg 26-35 normal Not Available [facility] [address] [place] [address], [address], 07/12/2024 18:57:35 07/13/19 25 07/12/2024 COMPL ETE BLOOD COUNT MCHC 34 g/dL 32-36 normal Not Available [facility] [address] [place] [address], [address], 07/12/2024 18:57:35 07/13/19 25 07/12/2024 COMPL ETE BLOOD COUNT RDW 14.6 % 11.0-1 5.0 normal Not Available [facility] [address] [place] [address], [address], 07/12/2024 18:57:35 07/13/19 25 07/12/2024 COMPL ETE BLOOD COUNT MPV 7.7 fL 6.2-10 .5 normal Not Available [facility] [address] [place] [address], [address], 07/12/2024 18:57:35 07/13/19 25 07/12/2024 COMPL ETE BLOOD COUNT platelet count 262 10*3/ uL 150-40 0 normal Not Available [facility] [address] [place] [address], [address], 07/12/2024 18:57:35 07/13/19 25 07/12/2024 COMPL ETE BLOOD COUNT neutrophil,a bsolute 4.0 10*3/ uL 1.6-8. 4 normal Not Available [facility] [address] [place] [address], [address], 07/12/2024 18:57:35 07/13/1907/12/2024 COMPL ETE BLOOD COUNT lymphocyte,a bsolute 2.3 10*3/ uL 0.4-5. 1 normal Not Available [facility] [address] [place] [address], [address], 07/12/2024 18:57:35 07/13/19 25 07/12/2024 COMPL ETE BLOOD COUNT monocyte,abs olute 0.8 10*3/ uL 0.0-1. 2 normal Not Available [facility] [address] [place] [address], [address], 07/12/2024 18:57:35 07/13/19 25 07/12/2024 COMPL ETE BLOOD COUNT eosinophil,a bsolute 0.4 10*3/ uL 0.0-0. 8 normal Not Available [facility] [address] [place] [address], [address], 07/12/2024 18:57:35 07/13/19 25 07/12/2024 COMPL ETE BLOOD COUNT basophil,abs olute 0.1 10*3/ uL 0.0-0. 3 normal Not Available [facility] [address] [place] [address], [address], 07/12/2024 18:57:35 07/13/19 25 07/12/2024 COMPL ETE BLOOD COUNT % neutrophils 52.9 % 42.0-7 8.0 normal Not Available [facility] [address] [place] [address], [address], 07/12/2024 18:57:35 07/13/19 25 07/12/2024 COMPL ETE BLOOD COUNT % lymphocytes 31.0 % 11.0-4 7.0 normal Not Available [facility] [address] [place] [address], [address], 07/12/2024 18:57:35 07/13/19 25 07/12/2024 COMPL ETE BLOOD COUNT % monocytes 10.0 % 0.0-11 .0 normal Not Available [facility] [address] [place] [address], [address], 07/12/2024 18:57:35 07/13/19 25 07/12/2024 COMPL ETE BLOOD COUNT % eosinophils 4.8 % 0.0-7. 0 normal Not Available [facility] [address] [place] [address], [address], 07/12/2024 18:57:35 07/13/19 25 07/12/2024 COMPL ETE BLOOD COUNT % basophils 1.3 % 0.0-3. 0 normal Not Available [facility] [address] [place] [address], [address], 07/12/2024 18:57:35 07/13/19 25 07/12/2024 COMPL ETE BLOOD COUNT nucleated red cells 0.0 % 0.0-0. 9 normal Not Available [facility] [address] [place] [address], [address], 07/12/2024 18:57:35 07/13/19 25 07/12/2024 COMPL ETE BLOOD COUNT nucleated RBCs, absolute 0.00 10*3/ uL not estab. normal Not Available [facility] [address] [place] [address], [address], 07/12/2024 18:57:35 07/13/19 25 07/12/2024 BASIC METAB OLIC PANEL glucose 150 mg/dL 74-100 high Not Available [facility] [address] [place] [address], [address], 07/12/2024 19:16:21 07/13/19 25 07/12/2024 BASIC METAB OLIC PANEL blood urea nitrogen 25 mg/dL 6-20 high Not Available [facility] [address] [place] [address], [address], 07/12/2024 19:16:21 07/13/19 25 07/12/2024 BASIC METAB OLIC PANEL creatinine 0.83 mg/dL 0.70-1 .20 normal Not Available [facility] [address] [place] [address], [address], 07/12/2024 19:16:21 07/13/19 25 07/12/2024 BASIC METAB OLIC PANEL BUN/creatini ne ratio 30 (calc ) 10-20 high Not Available [facility] [address] [place] [address], [address], 07/12/2024 19:16:21 07/13/19 25 07/12/2024 BASIC METAB OLIC PANEL sodium 139 mmol/ L 136-14 5 normal Not Available [facility] [address] [place], [address], 07/12/2024 19:16:21 07/13/19 25 07/12/2024 BASIC METAB OLIC PANEL potassium 4.3 mmol/ L 3.4-5. 0 normal Not Available [facility] [address] [place] [address], [address], 07/12/2024 19:16:21 07/13/19 25 07/12/2024 BASIC METAB OLIC PANEL chloride 102 mmol/ L 98-107 normal Not Available [facility] [address] [place] [address], [address], 07/12/2024 19:16:21 07/13/19 25 07/12/2024 BASIC METAB OLIC PANEL carbon dioxide 24 mmol/ L 22-31 normal Not Available [facility] [address] [place] [address], [address], 07/12/2024 19:16:21 07/13/19 25 07/12/2024 BASIC METAB OLIC PANEL anion gap 13 (calc ) 7-25 normal Not Available [facility] [address] [place] [address], [address], 07/12/2024 19:16:21 07/13/19 25 07/12/2024 BASIC METAB OLIC PANEL calcium 9.4 mg/dL 8.6-10 .2 normal Not Available [facility] [address] [place] [address], [address], 07/12/2024 19:16:21 07/13/19 25 07/12/2024 BASIC METAB OLIC PANEL GFR 94 >= 60 normal NOT E New calcu latio n for GFR (CKD- EPI 2020) is formu lated witho ut race adjus tment facto rs at the recom menda tion of the [facility] and Ammaryann [facility]ah[facility] ty of Nephr ology . This calcu latio n has not been valid ated in pregn ant women . For charbel tric patie nts refer to https ://enrico leon.joy ritchie.o rg/pr ofess ional s/KDO QI/gf r_cal culat orPed Not Available [facility] [address] [place], [address], 07/12/2024 19:16:21 07/13/19 25 07/12/2024 URINE CULTU RE enterobacter cloacae Organi sm: Entero bacter cloaca e Not Available [facility] [address] [place], [address], 07/15/2024 12:44:59 07/13/1907/15/2024 URINE CULTU RE urine culture abnormal ISOLA TE #1 COLON Y COUNT : 2,000 CFU/M L Proba ble Gram Negat esthela Bacil masood. ID and sensi tivit y in progr ess. See Adair te Resul t(s) Below Enter obact er cloac ae Not Available [facility] [address] [place], [address], 07/15/2024 12:44:59 07/13/1907/15/2024 URINE CULTU RE ceftazidime <=1 ug/mL susceptib le Not Available [facility] [address] [place], [address], 07/15/2024 12:44:59 07/13/1907/15/2024 URINE CULTU RE ceftriaxone <=1 ug/mL susceptib le Not Available [facility] [address] [place], [address], 07/15/2024 12:44:59 07/13/1907/15/2024 URINE CULTU RE ciprofloxaci n <=0.25 ug/mL susceptib le Not Available [facility] [address] [place], [address], 07/15/2024 12:44:59 07/13/1907/15/2024 URINE CULTU RE gentamicin <=4 ug/mL susceptib le Not Available [facility] [address] [place] [address], [address], 07/15/2024 12:44:59 07/13/19 25 07/15/2024 URINE CULTU RE imipenem <=1 ug/mL susceptib le Not Available [facility] [address] [place] [address], [address], 07/15/2024 12:44:59 07/13/19 25 07/15/2024 URINE CULTU RE levofloxacin <=0.5 ug/mL susceptib le Not Available [facility] [address] [place] [address], [address], 07/15/2024 12:44:59 07/13/19 25 07/15/2024 URINE CULTU RE nitrofuranto in 64 ug/mL intermedi ate Not Available [facility] [address] [place] [address], [address], 07/15/2024 12:44:59 07/13/19 25 07/15/2024 URINE CULTU RE piperacillin /kemi <=16 ug/mL susceptib le Not Available [facility] [address] [place] [address], [address], 07/15/2024 12:44:59 07/13/19 25 07/15/2024 URINE CULTU RE tetracycline <=4 ug/mL susceptib le Not Available [facility] [address] [place] [address], [address], 07/15/2024 12:44:59 07/13/19 25 07/15/2024 URINE CULTU RE tobramycin <=2 ug/mL susceptib le Not Available [facility] [address] [place] [address], [address], 07/15/2024 12:44:59 07/13/19 25 07/15/2024 URINE CULTU RE trimeth/sulf a <=2/38 ug/mL susceptib le Not Available [facility] [address] [facility], [place], [address], 07/15/2024 12:44:59 07/13/1907/12/2024 urina lysis panel , auto Unknown Analyte Clean Catch Not Available [facility] [address], [place], [address], 07/12/2024 13:57:15 07/13/19 25 07/12/2024 urina lysis panel , auto Unknown Analyte Keya Paha Not Available [facility] [address], [place], [address], 07/12/2024 13:57:15 07/13/19 25 07/12/2024 urina lysis panel , auto Unknown Analyte Clear Not Available [facility] [address], [place], [address], 07/12/2024 13:57:15 07/13/19 25 07/12/2024 urina lysis panel , auto Unknown Analyte 1.025 Not Available [facility] [address], [place], [address], 07/12/2024 13:57:15 07/13/19 25 07/12/2024 urina lysis panel , auto Unknown Analyte 1.003 - 1.030 Not Available [facility] [address], [place], [address], 07/12/2024 13:57:15 07/13/19 25 07/12/2024 urina lysis panel , auto Unknown Analyte 5.0 Not Available [facility] [address], [place], [address], 07/12/2024 13:57:15 07/13/19 25 07/12/2024 urina lysis panel , auto Unknown Analyte 5.0 - 8.0 Not Available [facility] [address], [place], [address], 07/12/2024 13:57:15 07/13/19 25 07/12/2024 urina lysis panel , auto Unknown Analyte 25 Elvia/uL Not Available [facility] [address], [place], [address], 07/12/2024 13:57:15 07/13/19 25 07/12/2024 urina lysis panel , auto Unknown Analyte Negati ve Not Available [facility] [address], [place], [address], 07/12/2024 13:57:15 07/13/19 25 07/12/2024 urina lysis panel , auto Unknown Analyte POSITI VE (Abnor mal) Not Available [facility] [address], [place], [id number], 07/12/2024 13:57:15 07/13/19 25 07/12/2024 urina lysis panel , auto Unknown Analyte Negati ve Not Available [facility] [address], [place], [address], 07/12/2024 13:57:15 07/13/19 25 07/12/2024 urina lysis panel , auto Unknown Analyte 30 mg/dL Not Available [facility] [address], [place], [address], 07/12/2024 13:57:15 07/13/19 25 07/12/2024 urina lysis panel , auto Unknown Analyte Negati ve Not Available [facility] [address], [place], [address], 07/12/2024 13:57:15 07/13/19 25 07/12/2024 urina lysis panel , auto Unknown Analyte Normal Not Available [facility] [address], [place], [address], 07/12/2024 13:57:15 07/13/19 25 07/12/2024 urina lysis panel , auto Unknown Analyte Normal Not Available [facility] [address], [place], [address], 07/12/2024 13:57:15 07/13/19 25 07/12/2024 urina lysis panel , auto Unknown Analyte Negati ve Not Available [facility] [address], [place], [address], 07/12/2024 13:57:15 07/13/19 25 07/12/2024 urina lysis panel , auto Unknown Analyte Negati ve Not Available [facility] [address], [place], [address], 07/12/2024 13:57:15 07/13/19 25 07/12/2024 urina lysis panel , auto Unknown Analyte 4 mg/dL Not Available [facility] [address], [place], [address], 07/12/2024 13:57:15 07/13/19 25 07/12/2024 urina lysis panel , auto Unknown Analyte Normal Not Available [facility] [address], [place], [address], 07/12/2024 13:57:15 07/13/19 25 07/12/2024 urina lysis panel , auto Unknown Analyte 1 mg/dL Not Available [facility] [address] [place] [address] [address], [place], [address], 07/12/2024 13:57:15 07/13/19 25 07/12/2024 urina lysis panel , auto Unknown Analyte Negati ve Not Available [facility] [address], [place], [address], 07/12/2024 13:57:15 07/13/19 25 07/12/2024 urina lysis panel , auto Unknown Analyte 50 Sera/uL Not Available [facility] [address] [place] [address] [address], [place], [address], 07/12/2024 13:57:15 07/13/19 25 07/12/2024 urina lysis panel , auto Unknown Analyte Negati ve Not Available [facility] [address] [place] [address] [address], [place], [address], 07/12/2024 13:57:15 07/27/19 25 07/26/2024 PTH, INTAC T WITH CA PTH, intact 9.0 pg/mL 15.0-6 5.0 low INTER PRETI VE GUIDE ===== ===== ===== ===== ===== ===== ===== ===== ===== ===== ===== === PTH CALCI UM CONDI TION ===== ===== ===== ===== ===== ===== ===== ===== ===== ===== ===== = Leslye l Leslye l Leslye l Parat hyroi d _ Low or Low Hypop ramin yroid ism Low Leslye l _ Leslye l or High Prima ry Hyper parat hyroi dism High __ High Leslye l or Secon carlos a Hyper parat hyroi dism Low __ High High Terti ermelinda Hyper parat hyroi dism __ Low or High Non-P ramin yroid Hyper calce yared Low Leslye l ===== ===== ===== ===== ===== ===== ===== ===== ===== ===== ===== ==== Not Available [facility] [address] [place] [address], [address], 07/26/2024 15:20:55 07/27/19 25 07/26/2024 PTH, INTAC T WITH CA calcium 9.5 mg/dL 8.6-10 .2 normal Not Available [facility] [address] [place] [address], [address], 07/26/2024 15:20:55 07/27/19 25 07/26/2024 UROLO GY CUSTO M PANEL glucose 104 mg/dL 74-100 high Not Available [facility] [address] [place] [address], [address], 07/26/2024 15:10:06 07/27/19 25 07/26/2024 UROLO GY CUSTO M PANEL blood urea nitrogen 20 mg/dL 6-20 normal Not Available [facility] [address] [place] [address], [address], 07/26/2024 15:10:06 07/27/19 25 07/26/2024 UROLO GY CUSTO M PANEL creatinine 0.89 mg/dL 0.70-1 .20 normal Not Available [facility] [address] [place] [address], [address], 07/26/2024 15:10:06 07/27/19 25 07/26/2024 UROLO GY CUSTO M PANEL BUN/creatini ne ratio 22 (calc ) 10-20 high Not Available [facility] [address] [place] [address], [address], 07/26/2024 15:10:06 07/27/19 25 07/26/2024 UROLO GY CUSTO M PANEL sodium 140 mmol/ L 136-14 5 normal Not Available [facility] [address] [place] [address], [address], 07/26/2024 15:10:07/27/19 25 07/26/2024 UROLO GY CUSTO M PANEL potassium 4.7 mmol/ L 3.4-5. 0 normal Not Available [facility] [address] [place] [address], [address], 07/26/2024 15:10:07/27/19 25 07/26/2024 UROLO GY CUSTO M PANEL chloride 104 mmol/ L 98-107 normal Not Available [facility] [address] [place] [address], [address], 07/26/2024 15:10:07/27/19 25 07/26/2024 UROLO GY CUSTO M PANEL carbon dioxide 25 mmol/ L 22-31 normal Not Available [facility] [address] [place] [address], [address], 07/26/2024 15:10:07/27/19 25 07/26/2024 UROLO GY CUSTO M PANEL anion gap 11 (calc ) 7-25 normal Not Available [facility] [address] [place] [address], [address], 07/26/2024 15:10:07/27/19 25 07/26/2024 UROLO GY CUSTO M PANEL calcium 9.6 mg/dL 8.6-10 .2 normal Not Available [facility] [address] [place] [address], [address], 07/26/2024 15:10:07/27/19 25 07/26/2024 UROLO GY CUSTO M PANEL phosphorus 4.2 mg/dL 2.5-4. 5 normal Not Available [facility] [address] [place] [address], [address], 07/26/2024 15:10:07/27/19 25 07/26/2024 UROLO GY CUSTO M PANEL uric acid 4.0 mg/dL 3.4-7. 0 normal Refer ence range s are based on popul ation norms and do not neces saril y corre late with treat ment targe ts. In patie nts with an estab lishe d diagn osis of gout under going Urate Lower ing Thera py (ULT) , the 2011 Arabella tra[facility] ge of Rheum atolo gy Guid chucky s for Manag ement of Gout recom mend a targe t uric acid level of < 6 mg/dL in all patie nts, or lower in certa in circu mstan fela. Arthr itis Care and [facility] Vol 64 No 10, 2011 [facility]ella tra[facility] of Rheum atolo gy ----- ----- ----- ----- ----- ----- ----- ----- ----- ----- ----- ---- Not Available [facility] [address] [place], [address], 07/26/2024 15:10:06 07/27/19 25 07/26/2024 UROLO GY CUSTO M PANEL eGFR 92 >= 60 normal NOT E New calcu latio n for GFR (CKD- EPI 2020) is formu lated witho ut race adjus tment facto rs at the recom menda tion of the Charlene Cobian atvikas and Arabella traore Socie ty of Nephr ology . This calcu latio n has not been valid ated in pregn ant women . For pedia tric patie nts refer to https ://enrico ritchie.luis enrique rg/kim murillo s/KDO QI/gf r_cal culat orPed Not Available [facility] [address] [place], [address], 07/26/2024 15:10:06 07/27/19 25 07/29/2024 STONE GUERRERO SIS composition SEE NOTE normal Calci um Oxala te Dihyd rate (Wedd ellit e) 95% Calci um Oxala te Monoh ydrat e (Whew ellit e) 5% Not Available [facility] [address] [place], [address], 07/29/2024 01:34:05 07/27/19 25 07/29/2024 STONE GUERRERO SIS weight 0.160 g normal Forma tiera, surgi loreto gel, tape adhes esthela or trans port media inter fere with the guerrero tical proce dure. Follo w up testi ng with the UroRi sk(R) Panel is sugge sted for affec yoandy sampl es, if clini laya indic ated. This test was devel oped and its guerrero tical perfo rmanc e michael cteri stics have been deter mined by [employer]. It has not been clear ed or appro juan by the FDA. This assay has been valid ated pursu ant to the CLIA regul ation s and is used for clini loreto purpo ses. Not Available [facility] [address] [facility], [place], [address], 07/29/2024 01:34:05 07/27/19 25 07/26/2024 urina lysis panel , auto Unknown Analyte Clean Catch Not Available [facility] [address], [place], [address], 07/26/2024 09:12:37 07/27/19 25 07/26/2024 urina lysis panel , auto Unknown Analyte Straw Not Available [facility] [address] [place] [address] [address], [place], [address], 07/26/2024 09:12:37 07/27/19 25 07/26/2024 urina lysis panel , auto Unknown Analyte Clear Not Available [facility] [address], [place], [address], 07/26/2024 09:12:37 07/27/19 25 07/26/2024 urina lysis panel , auto Unknown Analyte 1.025 Not Available [facility] [address], [place], [address], 07/26/2024 09:12:37 07/27/1907/26/2024 urina lysis panel , auto Unknown Analyte 1.003 - 1.030 Not Available [facility] [address], [place], [address], 07/26/2024 09:12:37 07/27/19 25 07/26/2024 urina lysis panel , auto Unknown Analyte 5.0 Not Available [facility] [address], [place], [address], 07/26/2024 09:12:37 07/27/1907/26/2024 urina lysis panel , auto Unknown Analyte 5.0 - 8.0 Not Available [facility] [address], [place], [address], 07/26/2024 09:12:37 07/27/19 25 07/26/2024 urina lysis panel , auto Unknown Analyte Negati ve Not Available [facility] [address], [place], [address], 07/26/2024 09:12:37 07/27/19 25 07/26/2024 urina lysis panel , auto Unknown Analyte Negati ve Not Available [facility] [address], [place], [address], 07/26/2024 09:12:37 07/27/19 25 07/26/2024 urina lysis panel , auto Unknown Analyte Negati ve Not Available [facility] [address], [place], [address], 07/26/2024 09:12:37 07/27/19 25 07/26/2024 urina lysis panel , auto Unknown Analyte Negati ve Not Available [facility] [address], [place], [address], 07/26/2024 09:12:37 07/27/19 25 07/26/2024 urina lysis panel , auto Unknown Analyte Negati ve Not Available [facility] [address], [place], [address], 07/26/2024 09:12:37 07/27/19 25 07/26/2024 urina lysis panel , auto Unknown Analyte Negati ve Not Available [facility] [address], [place], [address], 07/26/2024 09:12:37 07/27/19 25 07/26/2024 urina lysis panel , auto Unknown Analyte Normal Not Available [facility] [address], [place], [address], 07/26/2024 09:12:37 07/27/1907/26/2024 urina lysis panel , auto Unknown Analyte Normal Not Available [facility] [address], [place], [address], 07/26/2024 09:12:37 07/27/19 25 07/26/2024 urina lysis panel , auto Unknown Analyte Negati ve Not Available [facility] [address], [place], [address], 07/26/2024 09:12:37 07/27/1907/26/2024 urina lysis panel , auto Unknown Analyte Negati ve Not Available [facility] [address], [place], [address], 07/26/2024 09:12:37 07/27/1907/26/2024 urina lysis panel , auto Unknown Analyte 1 mg/dL Not Available [facility] [address], [place], [address], 07/26/2024 09:12:37 07/27/1907/26/2024 urina lysis panel , auto Unknown Analyte Normal Not Available [facility] [address], [place], [address], 07/26/2024 09:12:37 07/27/1907/26/2024 urina lysis panel , auto Unknown Analyte Negati ve Not Available [facility] [address], [place], [address], 07/26/2024 09:12:37 07/27/1907/26/2024 urina lysis panel , auto Unknown Analyte Negati ve Not Available [facility] [address], [place], [address], 07/26/2024 09:12:37 07/27/19 25 07/26/2024 urina lysis panel , auto Unknown Analyte Negati ve Not Available [facility] [address], [place], [address], 07/26/2024 09:12:37 07/27/19 25 07/26/2024 urina lysis panel , auto Unknown Analyte Negati ve Not Available [facility] [address], [place], [address], 07/26/2024 09:12:37 12/15/19 24 12/15/2023 MRI, cervi loreto spine , w/o contr ast [facility] [address] [place] [address] Patiryan t Name: TAY lozada : 89 Gerald lozada [...] listhe sis of C4 on C5 and right of way manager ior listhe sis of C5 on C6. There is no fractu re or pathol ogic intrao sseous lesion . There is severe anteri or margin al osteop hytic spurri ng. No parasp inous soft tissue abnorm ality is identi fied. The visual ized spinal cord and right of way manager ior fossa of the brain are normal [...] Taylor alcantara MD on 2023 5:06 PM [facility] [address] [place], [address], 01/27/2024 16:57:41 12/16/19 24 12/15/2023 MRI, lumba r spine , w/o contr ast [facility] [address] [place] [address] [place] [address] Gerald lozada Name: TAY lozada : 952 Gerald lozada Orderi ng Provid er: NOEL Leon ZHEN EXAM DATE: 2023 EXAM: MR LUMBAR W/O CONTRA ST HISTOR Y: 68-yea r-old male with low back and buttoc k pain radiat ing to the right leg. There is prior lumbar fusion . COMPAR LITZY: CT scan of the same date and MRI dated 2022. FINDIN GS: Again seen is prior discec vivi, interb finn graft, right of way manager ior fusion and cliff ctomy at L4-L5. There is parama gnetic artifa ct from the pedicl e screws , right of way manager ior fusion hardwa re and interb finn [...] alcantara MD on 2023 7:09 AM [email or web address] [facility] [address] [place], [address], 01/04/2024 08:05:34 12/16/19 24 12/15/2023 CT, lumba r spine , w/o contr ast [facility] [address] [place] [address] Patiryan t Name: TAY lozada : 89 Patiryan t Orderi ng Provid er: NOEL Leon ZHEN EXAM DATE: 2023 EXAM: CT LUMBAR WITHOU [...] is prior discec vivi, interb finn graft, right of way manager ior fusion and cliff ctomy at L4-L5. There is beam harden ing artifa ct from the pedicl e screws , right of way manager ior fusion hardwa re and interb finn spacer . There is no eviden ce of loosen ing of the hardwa re or hardwa re failur e. There is mild levocu rvatur e from L1 throug h L3 and mild dextro curvat ure from L3 throug h L5. There is minima l right of way manager ior listhe sis of L1 on L2 [...] There is bridgi ng bone in the right of way manager ior elemen ts. There is severe left [...] Taylor alcantara MD on 2023 7:12 AM [email or web address] [facility] [address] [facility], [place], [address], 01/04/2024 08:05:33 07/13/19 25 07/12/2024 XR, abdom en, 1 view No observ ation record ed. [email or web address] Not Available 06/17 20:13:39 07/13/19 25 07/12/2024 CT, abdom en + pelvi s, w/o contr ast [facility] [address] [facility] [place] [address] Patien t Name: TAY THOMAS Patien t : 952 Patien t Orderi ng Provid er: DEVIN DEVONTE S EXAM DATE: 2024 EXAM: CT ABD/PE [...] STRUCT URES: Normal . COMBIN ED IMPRES GINNY: Bilate ral renal stones . Stone cluste r in the distal right ureter produc es mild to modera te obstru ctive uropat hy on the right Interp reted By: Ward Trejo MD Electr onical ly Signed By: Ward Trejo MD on 025 2:57 PM [email or web address] [facility] [address] [place] [address], [address], 07/13/2024 18:43:42 Result Notes Documentation Provider Name and Address Organization Details Recorded Time Mri, Cervical Spine, W/o Contrast : [place] [id number] [place] [address] Patient Name: TAY THOMAS Patient : 1955 Patient Ordering Provider: LUCHO ANN EXAM DATE: 12/15/2023 EXAM: MR CERVICAL W/O CONTRAST HISTORY: 68-year-old male with paresthesia in his neck and left arm. COMPARISON: CT dated 06/09/2022 FINDINGS: There is diffuse straightening of the cervical spine. There is minimal anterior listhesis of C4 on C5 and posterior listhesis of C5 on C6. There is no fracture or pathologic intraosseous lesion. There is severe anterior marginal osteophytic spurring. No paraspinous soft tissue abnormality is identified. The visualized spinal cord and posterior fossa of the brain are normal in appearance. The craniocervical junction is normal in appearance. There are mild degenerative changes at C1-C2. C2-C3: There is a broad-based disc protrusion and right greater than left uncovertebral spurring. There is mild central canal stenosis. There is severe right neural foraminal stenosis. C3-C4: There is a broad-based disc protrusion, prominent uncovertebral spurring, and moderate left and mild right facet arthropathy. There is moderate central canal stenosis. There is severe bilateral neural foraminal narrowing. C4-C5: There is a broad-based disc protrusion, mild uncovertebral spurring and mild facet arthropathy. There is moderate central canal stenosis. There is moderate left and mild right neural foraminal narrowing. C5-C6: There is a broad-based disc protrusion and prominent uncovertebral spurring. There is mild facet arthropathy. There is severe central canal stenosis. There is severe bilateral neural foraminal stenosis. C6-C7: There is prominent uncovertebral spurring and a broad-based disc bulge/protrusion. There is mild central canal stenosis. There is severe bilateral neural foraminal stenosis. C7-T1: There is severe uncovertebral spurring with a diffuse disc/osteophyte complex. There is no central canal stenosis. There is severe bilateral neural foraminal narrowing. There is a small central disc protrusion and mild endplate spurring at T1-T2. There is no central canal narrowing and minimal neural foraminal narrowing. IMPRESSION: 1. There are severe degenerative changes in the cervical spine with severe central canal narrowing at C5-C6, moderate central canal narrowing at C3-C4 and C4-C5, and mild central canal narrowing at C2-C3 and C6-C7. 2. There is severe bilateral neural foraminal stenosis at C3-C4 and C5-C6 through C7-T1. There is severe right neural foraminal stenosis at C2-C3. Interpreted By: Vlad Bryant MD O ANN PA-C [address] [place] [address], [phone] 01/27/2024 16:57:41 Mri, Lumbar Spine, W/o Contrast : [place] [address] Patient Name: TAY THOMAS Patient : 1955 Patient Ordering Provider: AREN BARFIELD EXAM DATE: 12/15/2023 EXAM: MR LUMBAR W/O CONTRAST HISTORY: 68-year-old male with low back and buttock pain radiating to the right leg. There is prior lumbar fusion. COMPARISON: CT scan of the same date and MRI dated 12/15/2022. FINDINGS: Again seen is prior discectomy, interbody graft, posterior fusion and laminectomy at L4-L5. There is paramagnetic artifact from the pedicle screws, posterior fusion hardware and interbody spacer. There is no evidence of complication. There is mild levocurvature from L1 through L3 and mild dextrocurvature from L3 through L5. There is minimal anterior listhesis of L4 on L5. There is no fracture. There is mild to moderate anterior marginal osteophytic spurring. No pathologic lesion is identified in the lumbar spine. There are type II Modic changes at L1-L2, L2 on L3, L3-L4 and L5-S1. The conus medullaris is normal in appearance at the L1-L2 level. T11-T12: There is a small disc bulge and right-sided facet arthropathy. There is no central canal stenosis. There is mild right neural foraminal narrowing. T12-L1: This intervertebral disc is essentially normal in appearance. L1-L2: There is a broad-based disc bulge and mild endplate spurring. There is no central canal stenosis. There is no neural foraminal stenosis. L2-L3: There is a mild disc bulge, right-sided endplate spurring and minimal facet arthropathy. There is no central canal stenosis. There is mild right neural foraminal stenosis. L3-L4: There is a broad-based disc bulge/protrusion, mild endplate spurring and mild to moderate facet arthropathy. There is moderate central canal stenosis. There is moderate/severe bilateral neural foraminal stenosis. L4-L5: There is prior fusion with residual endplate spurring. There is no central canal stenosis. There is severe left and moderate/severe right neural foraminal stenosis. L5-S1: There is a right partial laminectomy. There is diffuse prominence of the intervertebral disc extending into the right neural foramen with associated endplate spurring. There is mild facet arthropathy. There is no central canal stenosis. There is severe right and moderate left neural foraminal stenosis. The paraspinous musculature is symmetric and normal in signal. IMPRESSION: 1. The patient is status post PLIF at L4-L5. There is severe left and moderate right residual neural foraminal narrowing. 2. There is severe right and moderate left neural foraminal narrowing at L5-S1. There is a right partial laminectomy and possible prior discectomy at this level. 3. There is moderate central canal stenosis and moderate/severe bilateral neural foraminal narrowing at L3-L4. Interpreted By: Vlad Bryant MD BARFIELD MD [address] [place] [address], [phone], [facility] 01/04/2024 08:05:34 Ct, Lumbar Spine, W/o Contrast : [facility] [address] [place] [address] Patient Name: TAY THOMAS Patient : 1955 Patient Ordering Provider: AREN BARFIELD EXAM DATE: 12/15/2023 EXAM: CT LUMBAR WITHOUT CONTRAST HISTORY: 68-year-old male with low back pain and prior lumbar surgery. COMPARISON: MRI of the same date TECHNIQUE: 1 mm direct axial slices were obtained through the lumbar spine. Computer-generated axial, sagittal, and coronal reconstructions are also provided for interpretation. FINDINGS: Again seen is prior discectomy, interbody graft, posterior fusion and laminectomy at L4-L5. There is beam hardening artifact from the pedicle screws, posterior fusion hardware and interbody spacer. There is no evidence of loosening of the hardware or hardware failure. There is mild levocurvature from L1 through L3 and mild dextrocurvature from L3 through L5. There is minimal posterior listhesis of L1 on L2 and L2 on L3. There is no fracture. There is mild to moderate anterior marginal osteophytic spurring. No pathologic lesion is identified in the lumbar spine. T11-T12: There is a small disc bulge and right-sided facet arthropathy. There is no central canal stenosis. There is mild right neural foraminal narrowing. T12-L1: This intervertebral disc is essentially normal in appearance. L1-L2: There is a broad-based disc bulge and mild endplate spurring. There is no central canal stenosis. There is no neural foraminal stenosis. L2-L3: There is a mild disc bulge, right-sided endplate spurring and minimal facet arthropathy. There is no central canal stenosis. There is mild right neural foraminal stenosis. L3-L4: There is a broad-based disc bulge/protrusion, mild endplate spurring and mild to moderate facet arthropathy. There is moderate central canal stenosis. There is moderate/severe bilateral neural foraminal stenosis. L4-L5: There is prior fusion with residual endplate spurring and facet arthropathy. There is no central canal stenosis. There is severe left and moderate/severe right neural foraminal stenosis. L5-S1: There is a right partial laminectomy. There is diffuse prominence of the intervertebral disc extending into the right neural foramen with associated endplate spurring. There is moderate to severe facet arthropathy. There is no central canal stenosis. There is severe right and moderate left neural foraminal stenosis. The paraspinous musculature is symmetric and normal in signal. IMPRESSION: 1. The patient is status post PLIF at L4-L5. There is no evidence of loosening of the hardware. There is bridging bone in the posterior elements. There is severe left and moderate right residual neural foraminal narrowing. 2. There is severe right and moderate left neural foraminal narrowing at L5-S1. There is a right partial laminectomy and possible prior discectomy at this level. 3. There is moderate central canal stenosis and moderate/severe bilateral neural foraminal narrowing at L3-L4. Interpreted By: Vlad Bryant MD BARFIELD MD [address] [place] [phone] 01/04/2024 08:05:33 Ct, Abdomen + Pelvis, W/o Contrast : [place] [id number] Patient Name: TAY THOMAS Patient : 1955 [...] Interpreted By: Ward Trejo MD LEPE MD [address] [place] [address], [phone] 07/13/2024 18:43:42 Problems No Known Problems Procedures Surgical History Date Name Laterality Status Provider Name and Address Organization Details Recorded Time 07/13/19 Post Void Residual; Ultrasound completed Joy Stone [facility] 07/12/2024 13:54:08 04/11/19 25 Biopsy Skin Lesion; [facility]ential [facility] 04/11/2024 14:41:10 04/11/19 25 Injection, Intralesional completed DUGLAS BASURTO MD [address] [place] [address], [phone], [facility] 04/11/2024 18:30:27 04/11/19 25 Destruction Premalignant Lesion(s) completed [facility] 04/11/2024 14:44:27 01/29/20 23 Lumbar Epidural Steroid Injection - Parth completed PERI CANTOR MD [address] [place] [address], [phone], [facility] 01/28/2023 14:14:59 09/10/19 23 Cervical MBB 2 level - Parth completed PERI CANTOR MD [address] [place] [address], [phone], [facility] 09/09/2022 16:11:18 08/16/19 23 Cervical MBB 2 level - Parth completed PERI CANTOR MD [address] [place] [address], [phone], [facility] 08/15/2022 15:23:46 05/04/19 23 Back Surgery completed Alana Streeter [facility] 07/16/2022 08:57:41 04/30/19 18 Shave Lesion; trunk, arm, leg completed MARIA DEL ROSARIO ODOM MD [address] [place] [address], [phone], [facility] 04/30/2017 22:32:02 04/30/19 18 Destruction BN Lesions completed Aylin Toussaint [facility] 04/29/2017 08:43:13 Orthopedic Surgery completed Balta Pérez [facility] 11/03/2016 13:55:36 Imaging Results None recorded. Procedure Notes None recorded. Medical Equipment None Reported. Allergies Allergen ID Allergen Name Allergen Category Reaction Reaction Severity Criticality Documentation Date Start Date Code Code System Note Provider Name and Address Organization Details Recorded Time 529099 lisinopri l medicatio n facial swelling Not available Not available 07/16/2022 60162 RxNorm [facility] 08:[facility]16 Medications Name Sig Start Date Stop [...] completed Not Available Not Available Not Available [facility] Metoprolo l Tartrate 100 mg tablet Take [...] Updated DateTime 07/12/2024 185.42 cm 29 kg/m2 83738.32 g Joy Stone [facility] 07/12/2024 13:49:16 Date Recorded Body height Body mass index (BMI) Body weight Provider Name and Address Organization Details Last Updated DateTime 07/26/2024 185.42 cm 29 kg/m2 76975.32 g Betsy Lee [facility] 07/26/2024 08:49:59 Date Recorded Body height Body mass index (BMI) Body weight Systolic blood pressure Diastolic blood pressure Provider Name and Address Organization Details Last Updated DateTime 11/23/2023 185.42 cm 32.3 kg/m2 071997.1 3 g 120 mm[Hg] 82 mm[Hg] Dalila Lebronholz [facility] 09:06:44 Social History Question Answer Notes LastModified by Organizat ion Details LastModified Time Tobacco Smoking Status Current Some Day [facility] 11/03/2016 13:55:22 How Much Tobacco Do You Chew? None Information not available 07/30/2020 Marital Status [email or web address] Informatio n not available 07/30/2020 What Was The Date Of Your Most Recent Tobacco Screening? 07/26/2024 Information not available 07/26/2024 How Much Tobacco Do You Smoke? No [email or web address] Information not available 07/16/2022 Sex: Male Functional Status Question Answer Note LastModified by Organizat ion Details LastModified Time Do you or have you ever used any other forms of tobacco or nicotine? No Information not available 07/16/2022 What is your level of alcohol consumption? Occasional [email or web address] Information not available 07/30/2020 Are you currently employed? No [email or web address] Information not available 07/16/2022 Do you or have you ever used e-cigarettes or vape? Never used electronic cigarettes [email or web address] Information not available 07/30/2020 What is your exercise level? Heavy [email or web address] Information not available 07/16/2022 Mental Status None recorded. Family History Relationship Description Onset Age of this Age Resolved Age Notes LastModified by Organization Details LastModified Time Father Heart disease Not available 07/16 08:46:24 Brother Heart disease [email or web address] Not available 07/16 08:46:24 Paternal Grandfather Heart disease Not available 07/16 08:46:35 Medical History Condition [...] N Immune System Disorder N Heart Attack (IA) Y Other Skin Condition N Mental Illness [...] SNOMED-CT Code Diagnosis ICD10 Code Diagnosis Note [id number] BENJAMIN PENDLETON MD ORTHOPEDI [facility] CL[facility] [address] [place] [address] 11/03/2016 13:45:25 11/03/2016 16:50:35 Knee pain 09557169 M25.562 Mr Thomas has a fmeniscus root tear and early medial compartmen t overload. I recommend restricted weight bearing and a course of NSAIDs. [id number] BENJAMIN PENDLETON MD ORTHOPEDI CS [facility] CLOS[facility] [address] [address] 11/17/2016 09:18:10 12/15/2016 07:32:42 Knee pain 36826157 M25.562 Mr Thomas has a meniscus root tear and early medial compartmen t overload. I recommend restricted weight bearing, weight loss and wean from diclofenac . 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 I recommend activity modificati on and an exercise program. [id number] MD FIDEL JONES [facility] [address] [facility] [place] [address] 07/30/2020 10:31:55 07/30/2020 11:24:51 Ureteric stone 44605534 N20.[address] scan with the findings as above. Plan as above. [id number] AREN BARFIELD MD NEUROSURG [facility] CLOSED [address] [facility] [address] [place] [address] 05/19/2022 09:50:13 06/03/2022 04:46:23 [id number] AREN BARFIELD MD SURGERY SCHEDULE [address] [place] [address] 05/23/2022 09:05:55 05/23/2022 10:51:10 [id number] AREN BARFIELD MD NEUROSURG [facility] [address] [place] [address] 06/09/2022 08:55:00 06/10/2022 04:47:18 Postoperative care 127588389 Z48.89 [id number] PERI CANTOR MD PAIN MEDICINE CLOSED [address] [place] [address] 07/16/2022 08:33:20 07/16/2022 16:07:09 Displacement of cervical intervertebral disc without myelopathy 60566737 M50.20 Degenerati on of cervical intervertebral disc 59371797 M50.30 Cervical spondylosis 387 053648 M47.812 [id number] ANY KILPATRICK PA-C [facility]OS[facility]G [facility] [address] 0 09/25/2022 13:04:15 09/26/2022 04:37:05 Postoperative care 946156342 Z48.89 [id number] PERI CANTOR MD [facility] PROFESSIO NAL CHARGES [address] [place] [address], [facility] [address] [place] [address] 08/15/2022 13:40:34 08/15/2022 15:57:04 Cervical spondylosis 419004674 M47.812 [id number] PERI CANTOR MD [facility] PROFESSIO NAL CHARGES [address] [place] [address] 1 09/09/2022 14:42:39 09/09/2022 16:28:31 Cervical spondylosis 742941688 M47.812 [id number] SUMMER GONZALEZ APRN NEUROSURG [facility] [address] [place] [address] 12/18/2022 12:45:42 12/19/2022 04:41:53 Lumbar radiculopathy 176631659 M54.16 Lumbar spondylosis 71262 0009 M47.896 History of lumbar fusion 3933676394 9106 Z98.1 [id number] PERI CANTOR MD PAIN MEDICINE CLOSED [address] 1 01/28/2023 13:19:54 01/28/2023 16:07:52 Degeneration of lumbar intervertebral disc 45887419 M51.36 Lumbar radiculopathy 128 076774 M54.16 [id number] PERI CANTOR MD [facility] [address] [facility] [address] PROFESSIO NAL CHARGES [address] [facility], [address] 1 01/28/2023 14:06:41 01/28/2023 14:29:56 Lumbar radiculopathy 043552559 M54.16 [id number] MD FIDEL JONES [facility] [address] [facility] 0 05/11/2023 11:50:55 05/11/2023 13:08:17 Urolithiasis 23346618 N20.9 Plan as above will arrange for bilateral ureterosco py and laser of stones possible stent placement [id number] AREN BARFIELD MD SURGERY SCHEDULE [address] [place] [address] 06/16/2023 08:07:40 06/18/2023 09:19:49 [id number] NUZHAT ROJAS-Tess NEUROSURG SERABessie WO[facility] CLOSED [address] [facility] [address] 0 11/23/2023 09:02:39 11/24/2023 04:46:06 Lumbar radiculopathy 228105484 M54.16 Cervical radiculopathy 12666177 M54.12 Low back pain 029524784 M54.50 [id number] DUGLAS BASURTO MD DERMATOLO GY SB [address] [place] [address] 04/11/2024 13:49:58 04/11/2024 16:09:51 Solar lentigo 40410425 L81.4 Benign Reassuranc eRecommend ed sun protective clothing and a mineral based sunscreen 30 SPF or higher lotion OTC daily Raised ebeenzer orrheic keratosis 3346375406 83463 L82.1 Benign Reassuranc e Hemangioma 102685425 D18 .00 Benign Reassuranc e Multiple b enign melanocytic nevi 000532162 D22.9 Benign Reassuranc e History of squamous cell carcinoma of skin 823460929 Z85.828 Well-heale d scar History of Malignant melanoma 437286559 Z85.89 Well-heale d scar Actinic keratosis 610484 007 L57.0 Education then treated with LN; pt tolerated well advised pt what to expect with freezing Cyst of skin 301506417 L 72.9 Injected with kenalog 2mg/cc, total of 0.1cc injectedND C#: [id number] #:[id number] xp: 05/2025 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 74874016 D48.5 A.) Right proximal thigh r/o lentigo vs lentigo malignaB.) Right distal thigh r/o lentigo vs lentigo malignasha ve biopsy performeds ent for pathsee procedure notewound care instructio ns providedpa tient consents for procedure and photo monitoring [id number] JAIME THOMAS CUA, [facility] [address] [address] 07/12/2024 13:17:09 07/12/2024 14:30:00 Urolithiasis 91445593 N20.9 History of Disorder 3128 [address] Z87.898 Recurrent urinary tract infection 705976337 N39.0 Recurrent kidney stone 8662297092 173181 N20.0 Chill 16318059 R68.83 Flank pain 396830221 R10 .9 Z87.442 Kidney stone 89247758 N2 0.0 Acute urin ermelinda tract infection 484143548 N39.0 [id number] JAIME THOMAS CUA, [facility] [address] [place] [address] 07/26/2024 08:34:35 07/26/2024 09:22:25 Urolithiasis 95507448 N20.9 Flank pain 667532630 R10 .9 Z87.442 History of Disorder 3128 22283 Z87.898 Recurrent urinary tract infection 382864172 N39.0 Recurrent kidney stone 8614406673 072758 N20.0 Kidney stone 82979312 N2 0.0 Acute urin ermelinda tract infection 266839898 N39.0 Health Concerns Section Related Observation LastModified by Organization Detai ls LastModified Time None Recorded Concern Status LastModified by Organization Details LastModified Time None Recorded Advance Directives Directive None Recorded Payers Insurance Date Sequence Insurance Name Policy Number Policy Huang Covered Member ID Huang Member ID Guarantor Name 07/19/2024 1 [place] Tay Thomas [id number] Tay Thomas 07/19/2024 1 [place] [id number] Tay Thomas [id number] Tay Thomas 07/30/2020 1 [place] [id number] Kelsie Thomas [id number] Tay Thomas 07/19/2024 1 [place] [id number] Tay Thomas [id number] Tay Thomas 07/19/2024 1 [place] Tay Thomas [id number] Tay Thomas 08/01/2024 2 AARP (MEDICARE SUPPLEMENT) Tay Thomas [id number] Tay Thomas Notes Date Note Type Note Provider Name and Address Organization Details Recorded Time 11/23/2023 text/html Tay Thomas is a 68-year-old [...] in clinic today. LUCHO ANN PA-C [address] [place], [address], [facility] 11/23/2023 09:43:39 04/11/2024 text/html New patient- Khalida f referred LUCAS with Dr. Maharaj 68 y/o presents to clinic today for full body check. Skin lesion on left wrist and PERICO lower legs. 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 Feels well today. Positive family history of malignant melanoma. DUGLAS BASURTO MD [address] [place], [address], [facility] 04/11/2024 18:33:13 07/12/2024 text/html The patient is a 68-year-old [...] radiologist reading pending. DEVIN PUENTE PA-C [address] [place], [address], [facility] 07/12/2024 20:02:52 07/26/2024 text/html The patient is a 68-year-old [...] is producing/passing stones. DEVIN PUENTE PA-C [address] [place], [address], [facility] 07/26/2024 13:03:01
--- OUTSIDE RECORDS SUMMARY | 2024-08-08 10:55 | XMS_ITS | Encounter Summary ---
Author Organization [employer] Address [address] [place] [address] Care Team Providers Care Explosive Technician Name Role Phone Emily Estrada Primary Care Provider Unavail able [facility], Provider Not In The System Primary Care Provider Unavailable Encounter Details Date Type Department Care Team (Late st Contact Info) Description 07/30/2020 Transcribed Document [facility] [facility] [place] [address] ProviderJodie MD [address] [place], [place] [address] Social History Tobacco Use Types Packs/Day Years Used Date Smoking Tobacco: Never Assessed Sex and Gender Information Value Date Recorded Sex Assigned at Not on file Legal Sex Male 4:10 PM CDT Gender Identity Not on file Sexual Orientation Straight 05/21/2022 1: 57 PM CDT documented as of this encounter Miscellaneous Notes * Cerner Conversion Note - Historical ProviderMD - 07/30/2020 1:35 PM CDT Patient: TAY THOMAS Age: 64 years Sex: Male : 1955 Associated Diagnoses: None Author: BLANCHE DOWNS APRN Chief Complaint R ureteral stone Review of Systems ROS reviewed as documented in chart no change since last seen by surgeon Health Status Allergies: Allergic Reactions (Selected) No Known Allergies, Allergies (1) Active Reaction No Known Allergies None Documented Current medications: (Selected) Documented Medications Documented Centrum: 1 Tab, Oral, Daily, 0 Refill(s) Fish Oil 500 mg oral capsule: 1 Cap, Oral, Daily, 0 Refill(s) Percocet 10/325 oral tablet: 1 Tab, Oral, Q6H, PRN: for pain, 0 Refill(s) Synthroid: 75 mcg, Oral, Daily, 0 Refill(s) allopurinol 300 mg oral tablet: 1 Tab, Oral, Daily, 60 Tab, 0 Refill(s) aspirin: 81 mg, Oral, Daily, 0 Refill(s) atorvastatin 10 mg oral tablet: Tab, Oral, Daily, 0 Refill(s) lisinopril: 20 mg, Oral, Daily, 0 Refill(s) vitamin E: 400 Int Units, Oral, Daily, 0 Refill(s), Home Medications (9) Active allopurinol 300 mg [...] vitamin E 400 Int Units, Oral, Daily , No qualifying data available Problem list: R ureteral stone Histories Past Medical History: No active or resolved past medical history items have been selected or recorded. Family History: No family history items have been selected or recorded. Procedure history: Thyroidectomy in 2011 at 55 Years. Cyst removal from right ankle. Right rotator cuff repair. Lithotripsy. Social History Social & Psychosocial Habits Alcohol 12/11/2016 Days Per Week of Alcohol Use 2 Total Drinks Per Week 6 Date/Time of Last Drink Thursday night Alcohol Use in Last Twelve Months Yes Alcohol Use Frequency Weekly 12/28/2018 Alcohol Use History, Social Habits Yes Total Drinks Per Week 5 Alcohol Use in Last Twelve Months Yes Substance Abuse 12/11/2016 Recreational Drug Use History No Recreational Drug Use Last 12 Months No Tobacco 12/11/2016 Smoking Status Current every day smoker Smoking Frequency Within Last 30 Days Cigars/pipes daily Tobacco Use Within Last Twelve Months Cigars Years of Tobacco Use 10 . Physical Examination VS/Measurements No qualifying data available General: Alert and oriented, No acute distress, obese. Eye: Pupils are equal, round and reactive to light, Extraocular movements are intact, glasses. HENT: Normocephalic, Normal hearing. Neck: Supple, Non-tender. Respiratory: Lungs are clear to auscultation, Respirations are non-labored. Cardiovascular: Normal rate, Regular rhythm, No murmur, No gallop, No edema. Gastrointestinal: Soft, Non-tender. Genitourinary: Kidney: Right, Costovertebral angle tenderness. Lymphatics: No lymphadenopathy neck, axilla, groin. Musculoskeletal: painful ROM L shoulder LUE weakness. Integumentary: Warm, Dry, [place]. Neurologic: Alert, Oriented. Psychiatric: Cooperative, Appropriate mood & affect. Review / Management Results review: No qualifying data available. Impression and Plan Condition: Stable. documented in this encounter Plan of Treatment Not on file documented as of this encounter Visit Diagnoses Not on filedocumented in this encounter Care Teams Explosive Technician Relationship Specialty Start Date End Date Emily Estrada [address] [place] [phone] PCP - General 05/14/22 06/09/24 [facility], Provider Not In The System, [place] [address] PCP - General 07/18/24 Lolita Belcher [address], [address] [address] Advanced Registered Nurse Practitioner Primary Care 06/10/24 documented as of this encounter
--- NOTE | 2024-08-08 10:56 | EXP.PAIN.SOA ---
[facility] Disclaimer: The information contained in this section may have been updated after the patient was seen, as this information can be updated by other users. Medical History Low testosterone Fatigue Angioedema Pain in right thigh Fall Internal derangement of right knee Locking of right knee Deep contusion of bone Complex tear of meniscus of right knee Right knee pain Prediabetes Encounter for pre-operative cardiovascular clearance Right hip pain Compression of lumbar vertebra DDD (degenerative disc disease), cervical Screening for diabetes mellitus Dietary counseling Exercise counseling COVID-19 Screening for lipid disorders Screening for hypertension Calculus of distal left ureter Abscess Cancer of skin of lower extremity Kidney stone CAD (coronary artery disease), mi'kmaq coronary artery CAD in mi'kmaq artery Lumbar radicular syndrome Sebaceous cyst Guaiac + stool Elevated alkaline phosphatase level High blood pressure High cholesterol History of thyroid cancer BMI 32.0-32.9,adult Hx of myocardial infarction Surgical History History of back surgery Hx of cardiac cath Hx of repair of left rotator cuff History of cholecystectomy Rotator cuff arthropathy of right shoulder H/O thyroidectomy H/O colonoscopy with polypectomy Family History Father , 64 [place] Heart attack Brother , 65 [place] Heart attack Social History (Updated 07/06/24 @ 11:27 by Norman Ramos RN) Smoking Status: Never smoker alcohol intake: current alcohol intake frequency: holidays/special occasions only substance use type: marijuana current occupational status: retired Travel in the last 8 weeks?: None household members: spouse housing: house marital status: number of children: 4 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 Today he rates his pain today 4 out of 10 however does state with increased activity or at night it does go to a 6 or 7 out of 10. Patient did previously have his cervical epidural of C6-C7 back in January that did provide 100% relief for 3 full months. He states even then after he still was having improvement but it did seem like it was slowly progressing and getting worse at night. He states the pain really just started around 17 May. Patient states he would have gotten into our office sooner however he has been having issue with kidney stones. Patient denies any new falls or injuries or changes to his overall pain. Patient states the pain is still there throughout his neck with the fairly constant electrical shock sensations going into his left shoulder. He states all of that was completely gone after the last injection and would like to get scheduled for repeat. He does state the pain is not as severe yet of what it was originally when he came to see us however it is progressively worsening. He states the pain is interfering with his ability perform activities of daily living such as cooking and cleaning. Patient was ordered compounded cream and baclofen at our last visit. He stated that the baclofen seem to make him feel funny and he never heard on the compounded cream. His Rogelio has been reviewed and is appropriate. Review of Systems: General: No recent weight changes, no fever, no sleep disturbances Respiratory: No cough, no shortness of air, no recurring pulmonary infections Cardiovascular/peripheral vascular: No chest pain, no palpitations, no edema, no shortness of breath Gastrointestinal: No new onset incontinence, normal bowel movements reported Genitourinary: No new onset incontinence Musculoskeletal: Neck pain, left shoulder numbness tingling Psychiatric: [Normal mood/affect] Neurological: [Denies weakness in extremities], [denies balance issues] Pain at rest (0-10 scale): 6 Objective Objective:: Physical Exam: General: Alert and oriented x3, no acute distress, pleasant and cooperative Lungs: Respirations even and unlabored, symmetrical chest expansion Eyes: PERRL Musculoskeletal: Flexion and extension of cervical [spine] somewhat guarded secondary to pain, [antalgic gait noted] positive Spurling's test Neurological: Speech clear, no gross sensory deficit Has patient had previous pain injection?: Yes Percent improvement in pain since last injection: 100% for 3 months Conservative treatment options previously tried: Home exercise plan Length of treatment: Longer than 12 weeks Meds Home Medications and Allergies Home Medications ?Medication ?Instructions ?Recorded ?Confirmed ?Type nitroglycerin 0.4 mg sublingual 0.4 mg sublingual Q5M PRN chest 06/06/21 07/06/24 Rx tablet pain #20 tabs prasugrel HCl 10 mg tablet 10 mg PO DAILY #90 tabs 10/28/23 07/06/24 Rx (Effient) aspirin 81 mg tablet,delayed 81 mg PO DAILY HEART HEALTH #90 11/02/23 07/06/24 Rx release tabs levothyroxine 75 mcg tablet 75 mcg PO DAILY thyroid #90 tabs 11/02/23 07/06/24 Rx (Synthroid) sildenafil 25 mg tablet 25 mg PO DAILY PRN sexual activity 11/02/23 07/06/24 Rx #30 tabs atorvastatin 10 mg tablet 10 mg PO DAILY #90 tabs 12/24/23 07/06/24 Rx allopurinol 300 mg tablet 300 mg PO DAILY 03/22/24 07/06/24 History metoprolol succinate 25 mg 25 mg PO DAILY #30 tabs 05/11/24 07/06/24 Rx tablet,extended release 24 hr pregabalin 100 mg capsule 100 mg PO BID #60 caps 06/22/24 07/06/24 Rx daptomycin 500 mg intravenous 750 mg IV Q24H 10 days 06/27/24 07/06/24 Rx solution prednisone 20 mg tablet 20 mg PO BID #9 tabs 07/06/24 07/06/24 Rx valacyclovir 1 gram tablet 1,000 mg PO TID 7 days #21 tabs 07/06/24 07/06/24 Rx New Prescriptions to Start Prescriptions: Allergies Allergy/AdvReac Type Severity Reaction Status Date / Time amlodipine Allergy Severe Angioedema Verified 07/06/24 11:27 lisinopril Allergy Severe angioedema Verified 07/06/24 11:27 tamsulosin (From Flomax) Allergy Other Verified 07/06/24 11:27 hydrochlorothiazide AdvReac Mild GOUT Verified 07/06/24 11:27 Assessment and Plan *Assessment and plan (1) DDD (degenerative disc disease), cervical: Status: Acute Category: Medical Code(s): M50.30 - Other cervical disc degeneration, unspecified cervical region (2) Cervical radiculopathy: Status: Acute Category: Medical Code(s): M54.12 - Radiculopathy, cervical region Plan Patient is experiencing worsening pain in their neck with radiating tingling and burning sensations into their left shoulder. Patient did have limited range of motion of his cervical spine with a positive Spurling's test. I did discuss with the patient that I do believe they would benefit from a cervical epidural steroid injection. Risk and benefits were discussed with patient and they would like to proceed forward with this plan of care. Patient has tried and failed conservative therapy including oral medications, heat and ice, topicals, at home stretching exercise for longer than 12 weeks that was physician guided. Patient did have his last cervical epidural on January 25 that did provide 100% relief for 3 months and then continue to provide additional relief even into the next month. Patient has had this pain for longer than 6 months. Patient is trying to do conservative treatment versus back surgery. Patient did have improved function and was able to do more overall. Patient will be scheduled for repeat injection. We will also reorder the compounded cream. Patient will be scheduled for a EMILY C5-C6 under fluoroscopy. Patient is on blood thinners and we will reach out to Dr. Wolf's office to make sure he can stop this medication prior to this procedure. Patient agrees with this plan of care. Patient has been instructed to contact the clinic with any concerns before the next appointment. Dr. Rm has reviewed this note and agrees with this plan of care. This note was dictated using voice recognition software and make contain errors or omissions. All injections are used with Lidocaine, Bupivacaine and dexamethasone unless otherwise stated as a diagnostic in which it has no steroid. Occasionally urine drug screen is needed to verify patient's compliance with our office pain contract. This is ordered based off specific treatments related to chronic pain with the potential to abuse certain medications.
[2024-08-08 11:07] VITALS: BP 124/78; PULSE 58; RESP 12; O2SAT 96; BMI 29.0
== END 2024-08-08 23:59 | disposition home or self-care (01) ==
LOC: SC.PAIN 10:26
PROVIDERS: PCP Nurse Practitioner Family; Visit Provider Nurse Practitioner Family
DX: M50.10 Cervical disc disorder with radiculopathy, unspecified cervical region (principal); Z79.899 Other long term (current) drug therapy
CPT/HCPCS: 99212; G0463

== ENCOUNTER 2024-08-30 08:47 | Day surgery (SDC) | payer MEDICARE, SELFPAY ==
[2024-08-30 08:58] VITALS: BP 103/72; PULSE 52; RESP 18; O2SAT 100; BMI 28.8
[2024-08-30] MEDS: IOPAMIDOL-200 (41%);10ML VIAL 10 ML IV (09:08)
--- NOTE | 2024-08-30 09:08 | P.PCN_ITS ---
Procedure Date: 08/30/24 Time: 09:00 Anesthesiologist:: Jossue Rich CRNA Complications:: None Pre-procedure Diagnosis:: Degenerative disc cervical spine multilevels. Cervical radiculopathy. Post-procedure Diagnosis:: Same Indications for Procedure:: Patient is a very pleasant 68-year-old male who comes our clinic today for cervical epidural steroid injection of cortisone. Patient describes posterior cervical neck pain as constant, dull, aching. Also, left shoulder and arm radicular symptoms. He reports responding very well January 2024 to cervical epidural steroid injection. He rates his pain 6/10. Procedure Details:: Procedure:Cervical epidural steroid injection Informed consent was obtained and the risks and benefits of the procedure were explained to the patient. The patient was taken to the procedure room and noninvasive monitors placed, including noninvasive blood pressure cuff and pulse oximeter. The neck was prepped using Chloraprep as a cleansing solution. The C6- C7 interspace was viewed using fluroscopy. The skin and subcutaneous tissues were anesthetized using lidocaine 1.5% and a 25-gauge needle. After this an 18- gauge Touhy epidural needle was placed into the C6-C7 interspace under fluroscopy guidance and advanced using loss of resistance to air until the epidural space was encountered. After confirmation of needle placement in the epidural space using contrast dye, dexamethasone 10 mg ( 1 ML) was incrementally injected into the cervical epidural space.~ The patient tolerated the procedure well with no complications. The patient was observed in the Pain Clinic and then discharged home neurologi laya intact. Plan and Disposition:: Patient was discharged without incident.
[2024-08-30] MEDS: DEXAMETHASONE 10MG/ML 1ML VIAL 10 MG (09:09)
[2024-08-30 09:10] VITALS: BP 107/73; PULSE 52; RESP 18; O2SAT 99
[2024-08-30 09:12] VITALS: BP 107/73; PULSE 52; RESP 18; O2SAT 99
[2024-08-30 09:15] VITALS: BP 118/77; PULSE 50; RESP 18; O2SAT 98
== END 2024-08-30 09:15 | disposition home or self-care (01) ==
PROVIDERS: PCP Nurse Practitioner Family; Visit Provider Nurse Anesthetist, Certified Registered
DX: M50.30 Other cervical disc degeneration, unspecified cervical region (principal); M54.12 Radiculopathy, cervical region; I10 Essential (primary) hypertension; I25.10 Atherosclerotic heart disease of native coronary artery without angina pectoris; E78.00 Pure hypercholesterolemia, unspecified; E89.0 Postprocedural hypothyroidism; Z79.02 Long term (current) use of antithrombotics/antiplatelets; Z79.899 Other long term (current) drug therapy; Z79.82 Long term (current) use of aspirin; Z79.890 Hormone replacement therapy; Z88.8 Allergy status to other drugs, medicaments and biological substances
CPT/HCPCS: 62321; J1100; Q9966

== ENCOUNTER 2024-09-05 11:09 | Outpatient (CLI) | payer MEDICARE, SELFPAY ==
--- OUTSIDE RECORDS SUMMARY | 2024-07-12 13:38 | XMS_ITS | Encounter Summary ---
Author Organization [employer] ([place], [place], [place], [place]) Address [address] [place] [address] Care Team Providers Care Box Cutter Name Role Phone Unavailable Primary Care Provider Unavailabl e Reason for Referral * Diagnostic X-Ray (Emergency) - New Request Specialty Diagnoses / Procedures Referred By Contac t Referred To Contact Diagnoses Calculus of kidney Procedures X-ray abdomen KUB 1 view Shi Alvarenga PA [address] [place] [address] Phone: tel: fax: Referral ID Status Reason Start Date Expiration Date V isits Requested Visits Authorized [id number] New Request 07/12/2024 07/12/2025 1 1 Reason for Visit * Diagnostic X-Ray (Emergency) - New Request Specialty Diagnoses / Procedures Referred By Ericaac t Referred To Contact Diagnoses Calculus of kidney Procedures X-ray abdomen KUB 1 view Shi Alvarenga PA [address] [place] [address] Phone: tel: fax: Referral ID Status Reason Start Date Expiration Date V isits Requested Visits Authorized [id number] New Request 07/12/2024 07/12/2025 1 1 Encounter Details Date Type Department Care Team (Late st Contact Info) Description 07/12/2024 1:38 PM EDT - 07/12/2024 11:59 PM EDT Hospital Encounter [facility] [place] [facility] [place] [address] [place] [address] Shi Alvarenga PA [address] [facility] [address] [place] [address] Calculus of kidney Discharge Disposition: Home or Self Care Social [...] your living situation today? I have a [facility] place to live 06/08/2024 Think about the [...] Do you speak a language other than Croatian at [facility]? No 06/08/2024 Do you want help with school or training? For example, starting or completing job training or getting a high school diploma, GED or equivalent. No 06/08/2024 Physical Activity Answer Date Recorded Number of minutes of exercise per week 150 06/08/2024 Self Management Answer Date Recorded Because of a physical, [...] you used [place] legal drugs? Never 06/08/2024 Mental Health Answer Date Recorded Calculation of above two rows 0 Sex and Gender Information Value Date Recorded Sex Assigned at Not on file Legal Sex Male 4:10 PM CDT Gender Identity Not on file Sexual Orientation Straight 05/21/2022 1: 57 PM CDT documented as of this encounter Medications at Time of Discharge [...] by mouth as needed for erectile dysfunction. documented as of this encounter Plan of Treatment Not on file documented as of this encounter Procedures Procedure Name Priority Date/Time Associated Diagnosis Comments XR ABDOMEN/KUB 1 VW STAT 07/12/2024 1 :41 PM EDT Calculus of kidney documented in this encounter Results * X-ray abdomen KUB 1 view (07/12/2024 1:41 PM EDT) Anatomical Region Laterality Modality Abdomen X-Ray 07/12/2024 2:34 PM EDT Impressions 07/12/2024 2:41 PM EDT No radioopaque upper urinary tract stones. Images reviewed, interpreted, and dictated by Dr. Brigette Sheikh. Transcribed by Helena Sanz PA-C. Narrative 07/12/2024 2:41 PM EDT KUB HISTORY: Nephrolithiasis. COMPARISON: June 09, 2024 FINDINGS: A single view of the abdomen with a coned-down of the pelvis demonstrates an unremarkable bowel gas pattern. No abnormal calcifications are identified over the renal shadows or course of the ureters. There are multiple right upper quadrant surgical clips consistent with cholecystectomy. Status post post lumbar spine fusion. Procedure Note Samaria Sheikh MD - 07/12/2024 KUB HISTORY: Nephrolithiasis. COMPARISON: June 09, 2024 FINDINGS: A single view of the abdomen with a coned-down of the pelvis demonstrates an unremarkable bowel gas pattern. No abnormal calcifications are identified over the renal shadows or course of the ureters. There are multiple right upper quadrant surgical clips consistent with cholecystectomy. Status post post lumbar spine fusion. IMPRESSION: No radioopaque upper urinary tract stones. Images reviewed, interpreted, and dictated by Dr. Brigette Sheikh. Transcribed by Helena Sanz PA-C. Shi [facility] ORDERABLES Final Result documented in this encounter Visit Diagnoses Diagnosis Calculus of kidney documented in this encounter Care Teams Box Cutter Relationship Specialty Start Date End Date [facility] [address] [place] [address], [address] [place] [id number] Advanced Registered Nurse Practitioner Primary Care 06/10/24 documented as of this encounter
--- OUTSIDE RECORDS SUMMARY | 2024-07-18 22:41 | XMS_ITS | Encounter Summary ---
Author Organization [employer] ([place], [place], [place], [place]) Address [address] [place] [address] Care Team Providers Care Gum Rolling Machine Tender Name Role Phone [facility], Provider Not In The System MD Primary Care Provider Unavailable Reason for Visit * Reason Comments Abdominal Pain Pt reports severe ri ght sided flank pain post urethral stent removal. Encounter Details Date Type Department Care Team (Late st Contact Info) Description 07/18/2024 10:41 PM EDT - 07/19/2024 2:16 AM EDT Emergency [facility] Emergency Department [address] [place] [address] Kareem Martel MD [facility] [place] [address] Right ureteral stone (Primary Dx); Renal colic [...] you? Never 06/08/2024 How often does anyone, inclashley ding family and friends, threaten you with harm? [...] Do you speak a language other than [place]ian at [facility]? No 06/08/2024 Do you want help [...] If you do not have a physician, [facility] has a referral service called [employer]. You may call the number during business hours at [phone] for assistance in finding a primary care [...] electronically [facility]. If you do not hear from [...] sent through Care Everywhere. * Kidney Stones [id number] (Albanian) documented in this encounter Medications at Time [...] STENT INSERTION; Surgeon: Kareem Young MD; Location: [facility]; Service: Urology; Laterality: Right; CYSTOSCOPY,URETEROSCOPY W/ LASER LITHOTRIPSY Left 05/15/2023 Procedure: (BILATERAL URETEROSCOPY, LASER LITHOTRIPSY, retrograde pyelogram); Surgeon: Kareem Young MD; Location: [facility]; Service: Urology; Laterality: Left; IN 0700 1HR(A) [...] WAVE (ESWL); Surgeon: Kareem Young MD; Location: [facility] OR; Service: Urology; Laterality: Right; ROTATOR CUFF REPAIR [...] 0.9% (NS) bolus (0 mLs intravenous Stopped 07/19/24 0034) morphine injection 4 mg (4 mg intravenous Given 07/18/242326) ondansetron (ZOFRAN) injection 4 mg (4 mg intravenous Given 07/18/242326) iopamidoL (ISOVUE-370) 370 mg iodine /mL (76 %) injection 75 mL (75 mLs intravenous Given 07/19/24 0024) Results for orders placed or performed during [...] Yellow Clarity, UA Turbid (A) Clear Specific [place], UA 1.022 1.005 - 1.030 pH, UA [...] Pending) ED Course as of 07/19/24 0214 ThuJul 19, 2024 [address] [...] Martel MD Preliminary Report NAME: TAY THOMAS / SEX: 1955 / Male MRN / ACC#: [id number] / [id number] ORDERING PHYSICIAN: Kareem Martel M.D., EXAM REQUESTED: [id number] ABDOMEN & PELVIS W/CONTRAST FACILITY: [facility] DATE: 07/19/2024 RADIOLOGIST NAME: Saroj Cuevas [...] Saroj Cuevas Colin on 07/19/2024 1:52:09 AM, [place] Time MD GILLES This is a preliminary [...] for follow-up Kareem Young MD Specialty: Urology [address] [address] Next Steps: Schedule an appointment as soon as possible for a visit Instructions: As needed Electronically Signed By Kareem Martel MD 07/19/24213 documented in this encounter Plan of Treatment [...] Darryl Clark MD us Ariella Grant PA-C IMG CT ORDERABLES Final Re sult * (ABNORMAL) Urinalysis Microscopic Only (07/19/2024 12:09 AM EDT) WBC, UA 6-10(A) None Seen /HPF 07/19/2024 12:21 AM EDT [facility] RBC, UA Too Numerous To Count(A) None Seen /HPF 07/19/2024 12:21 AM EDT [facility] Bacteria, UA 1+(A) Trace, None Seen 07/19/2024 12:21 AM EDT [facility] Mucus 1+(A) None Seen 07/19/2024 12:21 AM EDT [facility] SQUAMOUS EPITHELIAL None Seen None Seen /HPF 07/19/2024 12:21 AM EDT [facility] Urine URINE SPECIMEN COLLECTION, CLEAN CATCH / Unknown 07/19/2024 12:09 AM EDT 07/19/2024 12:10 AM EDT us Ariella Grant PA-C URINE ORDERABLES Final Res ult [facility] [address] [employer] [address] [phone] * (ABNORMAL) Urinalysis, Reflex Microscopic and Culture If Indicated (07/19/2024 12:09 AM EDT) Color, UA Light Yellow 07/19/2024 12:21 AM EDT [facility] Clarity, UA Turbid(A) Clear 07/19/2024 12:21 AM EDT [facility] Specific [place], UA 1.022 1.005 - 1.030 07/19/2024 12:21 AM EDT [facility] pH, UA 5.5(L) 6.0 - 8.0 07/19/2024 12:21 AM EDT [facility] Leukocytes, UA Negative Negative 07/19/2024 12:21 AM EDT [facility] Nitrite, UA Negative Negative 07/19/2024 12:21 AM EDT [facility] Protein, UA Negative Negative 07/19/2024 12:21 AM EDT [facility] Glucose, UA Normal Normal 07/19/2024 12:21 AM EDT [facility] Ketones, UA Negative Negative 07/19/2024 12:21 AM EDT [facility] Bilirubin, UA Negative Negative 07/19/2024 12:21 AM EDT [facility] Blood, UA 3+(A) Negative 07/19/2024 12:21 AM EDT [facility] Urobilinogen, UA Normal Normal 07/19/2024 12:21 AM EDT [facility] Specimen Source Urine, Clean Catch 07/19/2024 12:21 AM EDT [facility] Urine URINE SPECIMEN COLLECTION, CLEAN CATCH / Unknown 07/19/2024 12:09 AM EDT 07/19/2024 12:10 AM EDT Ariella Grant PA-C URINE ORDERABLES Final Res ult Performing Organization Address [facility]/ZIP Co de Phone Number [facility] [address] [place] [address], [facility] [phone] * Blood Culture (07/18/2024 11:28 PM EDT) Result No growth in 5 days 07/24/2024 10:01 AM EDT [facility] Blood 07/18/2024 11:2 8 PM EDT 07/18/2024 11:28 PM EDT us Ariella Grant PA-C MICROBIOLOGY - GENERAL ORD ERABLES Final Result Performing Organization Address [facility] Co de Phone Number [facility] [address] [place] [address], [facility] [phone] * Blood Culture (07/18/2024 11:28 PM EDT) Result No growth in 5 days 07/24/2024 10:01 AM EDT [facility] Blood 07/18/2024 11:2 8 PM EDT 07/18/2024 11:28 PM EDT Ariella Grant PA-C MICROBIOLOGY - GENERAL ORD ERABLES Final Result Performing Organization Address [facility] Co de Phone Number [facility] [address] [place] [address], [facility] [phone] * Lactic Acid with reflex (SJ) (07/18/2024 11:28 PM EDT) Lactic Acid Level (mmol/L) 1.0 0.4 - 2.0 mmol/L 07/18/2024 11:58 PM EDT [facility] Comment:If a Lactic Acid Lev el with Reflex if Indicated result is greater than 2.0, a Lactic Acid Level will be ordered to be collected 2 hours after the original collection time. Blood 07/18/2024 11:2 8 PM EDT 07/18/2024 11:28 PM EDT us Ariella Grant PA-C LAB BLOOD ORDERABLES Final Result [facility] [address] [phone] * (ABNORMAL) CBC with Auto Diff (07/18/2024 11:28 PM EDT) WBC 8.6 3.9 - 10.0 K/ L 07/18/2024 11:32 PM EDT [facility] RBC 4.54(L) 4.63 - 6.08 M/ L 07/18/2024 11:32 PM EDT [facility] Hemoglobin 14.1 11.2 - 15.7 GM/DL 07/18/2024 11:32 PM EDT [facility] Hematocrit 42.0 40.1 - 51.0 % 07/18/2024 11:32 PM EDT [facility] MCV 93 79 - 95 fL 07/18/2024 11:32 PM EDT [facility] MCH 31.1 25.6 - 32.2 pg 07/18/2024 11:32 PM EDT [facility] MCHC 33.6 32.3 - 36.5 GM/DL 07/18/2024 11:32 PM EDT [facility] RDW 13.6 11.6 - 14.4 % 07/18/2024 11:32 PM EDT [facility] Platelets 236 163 - 369 K/CU MM 07/18/2024 11:32 PM EDT [facility] MPV 9.7 9.4 - 12.4 fL 07/18/2024 11:32 PM EDT [facility] % Neutros 62 34 - 68 % 07/18/2024 11:32 PM EDT [facility] % Lymphs 24 19 - 53 % 07/18/2024 11:32 PM EDT [facility] % Monos 9 4 - 13 % 07/18/2024 11:32 PM EDT [facility] % Eos 4 1 - 7 % 07/18/2024 11:32 PM EDT [facility] % Baso 1 0 - 1 % 07/18/2024 11:32 PM EDT [facility] # Neutros 5.33 1.56 - 6.13 K/ L 07/18/2024 11:32 PM EDT [facility] # Lymphs 2.05 1.18 - 3.74 K/ L 07/18/2024 11:32 PM EDT [facility] # Monos 0.74 0.24 - 0.82 K/ L 07/18/2024 11:32 PM EDT [facility] # Eos 0.36 0.04 - 0.54 K/ L 07/18/2024 11:32 PM EDT [facility] # Baso 0.08 0.01 - 0.08 K/ L 07/18/2024 11:32 PM EDT [facility] Immature Granulocytes-Re lative 0.20 0.00 - 0.60 % 07/18/2024 11:32 PM EDT [facility] # IG 0.02 0.00 - 0.05 K/uL 07/18/2024 11:32 PM EDT [facility] Blood 07/18/2024 11:2 8 PM EDT 07/18/2024 11:28 PM EDT Narrative [facility] - 07/18/2024 11:32 PM EDT When [...] Blast? Flag noted Atypical Lymph flag noted us Ariella Grant PA-C LAB BLOOD ORDERABLES Final Result [facility] [address] [place] [address], [facility] [phone] * C-Reactive Protein (07/18/2024 11:27 PM EDT) CRP <0.30 0.00 - 0.90 mg/dL 07/18/2024 11:58 PM EDT [facility] Blood Venipuncture / Unknown 07/18/2024 11:27 PM EDT 07/18/2024 11:27 PM EDT Ariella Grant PA-C LAB BLOOD ORDERABLES Final Result [facility] [address] [phone] * (ABNORMAL) Comprehensive metabolic panel (07/18/2024 11:27 PM EDT) Pathologist [facility] Sodium 140 136 - 146 meq/L 07/18/2024 11:58 PM EDT [facility] Potassium 4.1 3.5 - 5.1 meq/L 07/18/2024 11:58 PM EDT [facility] Chloride 109 102 - 112 meq/L 07/18/2024 11:58 PM EDT [facility] CO2 28 21 - 32 meq/L 07/18/2024 11:58 PM EDT [facility] Calcium 9.2 8.5 - 10.1 mg/dL 07/18/2024 11:58 PM EDT [facility] Glucose 115(H) 74 - 106 mg/dL 07/18/2024 11:58 PM EDT [facility] BUN 28(H) 7 - 22 mg/dL 07/18/2024 11:58 PM EDT [facility] Creatinine 0.93 0.70 - 1.30 mg/dL 07/18/2024 11:58 PM EDT [facility] BUN/Creatinine 30(H) 8 - 20 07/18/2024 11:58 PM EDT [facility] Albumin 4.0 3.4 - 5.0 g/dL 07/18/2024 11:58 PM EDT [facility] Alkaline Phosphatase 169(H) 27 - 136 U/L 07/18/2024 11:58 PM EDT [facility] ALT 47 12 - 78 U/L 07/18/2024 11:58 PM EDT [facility] AST 37 5 - 37 U/L 07/18/2024 11:58 PM EDT [facility] Total Bilirubin 0.3 0.2 - 1.3 mg/dL 07/18/2024 11:58 PM EDT [facility] Protein, Total 7.6 6.4 - 8.2 gm/dL 07/18/2024 11:58 PM EDT [facility] Anion Gap 7(L) 9 - 20 07/18/2024 11:58 PM EDT [facility] A/G Ratio 1.1 1.1 - 2.5 07/18/2024 11:58 PM EDT [facility] Globulin 3.6 1.5 - 4.5 g/dL 07/18/2024 11:58 PM EDT [facility] Osmolality Calc 285.8 mOsm/kg 11:58 PM EDT [facility] eGFR (mL/min/1.73m2) >60 >=60 mL/min/1.7 3m2 07/18/2024 11:58 PM EDT [facility] Comment:ESTIMATED GFR IS NOT ACCURATE CREATININE CLEARANCE IN PREDICTING GLOMERULAR FILTRATION RATE. ESTIMATED GFR IS NOT APPLICABLE FOR DIALYSIS PATIENTS. Blood Venipuncture / Unknown 07/18/2024 11:27 PM EDT 07/18/2024 11:27 PM EDT Ariella Grant PA-C LAB BLOOD ORDERABLES Final Result [facility] [address] [phone] documented in this encounter Visit Diagnoses Diagnosis [...] Please choose an indication: Urinary Tract Infection 0218 (Given - Provid er: Vince Gresham) morphine [...] all sources in 24 hours Look-alike/Sound-alike medication 217 (Given - Provid er: Vince Gresham) phenazopyridine (PYRIDIUM) tablet 190 mg (COMPLETED) 190 mg Once, oral, On Thu07/19/24 at 0205, For 1 dose 217 (Given - Provid er: Vince Gresham) sodium [...] Maldonado) documented in this encounter Care Teams Gum Rolling Machine Tender Relationship Specialty Start Date End Date [facility], Provider Not In The System, [place] [address] PCP - General 07/18/24 Lolita Belcher [address], [address] [place] [address] Advanced Registered Nurse Practitioner Primary Care 06/10/24 documented as of this encounter
--- OUTSIDE RECORDS SUMMARY | 2024-09-05 11:14 | XMS_ITS | Encounter Summary ---
Author Organization [employer] ([place], [place], [place], [place]) Address [address] [place] [address] Care Team Providers Care Refrigerating Engineer Head Name Role Phone Emily Estrada Primary Care Provider Unavail able [facility], Provider Not In The System Primary Care Provider Unavailable Encounter Details Date Type Department Care Team (Late st Contact Info) Description 12/28/2018 Transcribed Document [facility] [place] Family Medicine [address] [place] [address] ProviderJodie MD [address] [place] [address] Social History Tobacco Use Types Packs/Day Years Used Date Smoking Tobacco: Never Assessed Sex and Gender Information Value Date Recorded Sex Assigned at Not on file Legal Sex Male 4:10 PM CDT Gender Identity Not on file Sexual Orientation Straight 05/21/2022 1: 57 PM CDT documented as of this encounter Miscellaneous Notes * Cerner Conversion Note - Jodie ProviderMD - 12/28/2018 8:52 AM LIFE GUARD ED Discharge Entered On: 12/28/2018 8:52 EST Performed On: 12/28/2018 8:52 EST by CHAVO VALDES RN Discharge Process Patient Disposition : Admit/Observe Personal Belongings With Patient : Yes CHAVO VALEDS RN - 12/28/2018 8:52 EST Admission, ED Nurse Report Accepted By : Report called to Leidy SALCEDO transported to [facility] Nurse Report Acceptance Time : 12/28/2018 8:52 EST `Nurse Report (Hand Off) : Called CHAVO VALDES RN - 12/28/2018 8:52 EST documented in this encounter Plan of Treatment Not on file documented as of this encounter Visit Diagnoses Not on filedocumented in this encounter Care Teams Refrigerating Engineer Head Relationship Specialty Start Date End Date MavisBarEmily ordonez [address] [address] [place] [address] PCP - General 05/14/22 06/09/24 [facility], Provider Not In The System, [place] [address] PCP - General 07/18/24 Lolita Belcher [address] [facility], [address] [place] [address] Advanced Registered Nurse Practitioner Primary Care 06/10/24 documented as of this encounter
--- OUTSIDE RECORDS SUMMARY | 2024-09-05 11:14 | XMS_ITS | Encounter Summary ---
Author Organization [employer] ([place], [place], [place], [place]) Address [address] [place] [address] Care Team Providers Care Bridge Operator Slip Name Role Phone Emily Estrada Primary Care Provider Unavail able [facility], Provider Not In The System Primary Care Provider Unavailable Encounter Details Date Type Department Care Team (Late st Contact Info) Description 12/28/2018 Transcribed Document [facility] [place] Family Medicine [address] [place] [address] ProviderJodie MD [address] [place] [address] Social History Tobacco Use Types Packs/Day Years Used Date Smoking Tobacco: Never Assessed Sex and Gender Information Value Date Recorded Sex Assigned at Not on file Legal Sex Male 4:10 PM CDT Gender Identity Not on file Sexual Orientation Straight 05/21/2022 1: 57 PM CDT documented as of this encounter Miscellaneous Notes * Cerner Conversion Note - Jodie ProviderMD - 12/28/2018 11:11 AM DISTRIBUTOR SALES MANAGER Patient: TAY THOMAS Age: 63 Years Sex: Male : 1955 Chief Complaint c/o lower back pain radiating around to lower abd; Pt dx w/ rt kidney stone on Thursday at [facility] [address] scan; appt to see Dr. Young on Thursday Primary Care Provider DESIREE LEE MD-[facility] Urologist: Dr. Young History of Present [...] nausea with vomiting and thus presented to [facility]. In the ER he was found [...] Ongoing Gout High cholesterol Hypertension Kidney stone [place] (myocardial infarction) S/P cholecystectomy Thyroid nodule Torn [...] Diagnostic Results Radiology Results (Last 48 hours) [id number] -- 12/28/2018 08:06 CT Abdomen Pelvis WO [...] # 0.84 x10(3)/uL (Low) 12/28/2018 05:37 EST [place] % 7.6 % 12/28/2018 05:37 EST [place] # [id number] K/uL 12/28/2018 05:37 EST Eos [...] Appearance CLEAR2 12/28/2018 05:45 EST Urine Specific [place] 1.023 12/28/2018 05:45 EST Urine pH Dipstick [...] Status No Code Status Order on Record documented in this encounter Plan of Treatment Not on file documented as of this encounter Visit Diagnoses Not on filedocumented in this encounter Care Teams Bridge Operator Slip Relationship Specialty Start Date End Date Emily Estrada [address] [place] [address] PCP - General 05/14/22 06/09/24 [facility], Provider Not In The System, [place] [address] PCP - General 07/18/24 Lolita Belcher [address] [place] [address], [address] [address] Advanced Registered Nurse Practitioner Primary Care 06/10/24 documented as of this encounter
--- OUTSIDE RECORDS SUMMARY | 2024-09-05 11:14 | XMS_ITS | Encounter Summary ---
Author Organization [employer] ([place], [place], [place], [place]) Address [address] [place] [address] Care Team Providers Care Student Life Advisor Name Role Phone Emily Estrada Primary Care Provider Unavail able [facility], Provider Not In The System Primary Care Provider Unavailable Encounter Details Date Type Department Care Team (Late st Contact Info) Description 12/28/2018 Transcribed Document [facility] [place] [address] [place] [address] ProviderJodie MD [address] [place] [address] Social History Tobacco Use Types Packs/Day Years Used Date Smoking Tobacco: Never Assessed Sex and Gender Information Value Date Recorded Sex Assigned at Not on file Legal Sex Male 4:10 PM CDT Gender Identity Not on file Sexual Orientation Straight 05/21/2022 1: 57 PM CDT documented as of this encounter Miscellaneous Notes * Cerner Conversion Note - Jodie ProviderMD - 12/28/2018 7:58 AM MOVIE STAR Phone Call for Consults Entered On: 12/28/2018 8:25 EST Performed On: 12/28/2018 8:23 EST by Miguel Angel Moore, Emergency Room Coal Chemist Phone Call for Consults Consult Phone Call/Page Attempt : First call Physician Requesting Consult : VLAD TAYLOR MD-EMR Date and Time Call Returned : 12/28/2018 8:24 EST Physician Returning Call : jayla bourgeois Jared S, Emergency Room Coal Chemist - 12/28/2018 8:23 EST documented in this encounter Plan of Treatment Not on file documented as of this encounter Visit Diagnoses Not on filedocumented in this encounter Care Teams Student Life Advisor Relationship Specialty Start Date End Date Emily Estrada [address] [place] [address] [place] [address] PCP - General 05/14/22 06/09/24 [facility], Provider Not In The System, [place] [address] PCP - General 07/18/24 Lolita Belcher [address], [address] [place] [id number] Advanced Registered Nurse Practitioner Primary Care 06/10/24 documented as of this encounter
--- OUTSIDE RECORDS SUMMARY | 2024-09-05 11:14 | XMS_ITS | Encounter Summary ---
Author Organization [employer] ([place], [place], [place], [place]) Address [address] [place] [address] Care Team Providers Care Retail Chain Store Area Supervisor Name Role Phone Emily Estrada Primary Care Provider Unavail able [facility], Provider Not In The System Primary Care Provider Unavailable Encounter Details Date Type Department Care Team (Late st Contact Info) Description 12/29/2018 Transcribed Document [facility] Family Medicine [address] [place] [address] ProviderJodie MD [address] [place] [address] Social History Tobacco Use Types Packs/Day Years Used Date Smoking Tobacco: Never Assessed Sex and Gender Information Value Date Recorded Sex Assigned at Not on file Legal Sex Male 4:10 PM CDT Gender Identity Not on file Sexual Orientation Straight 05/21/2022 1: 57 PM CDT documented as of this encounter Miscellaneous Notes * Cerner Conversion Note - Jodie ProviderMD - 12/29/2018 11:00 AM CABLE REPAIRER UM Authorization Entered On: 12/29/2018 11:00 EST Performed On: 12/29/2018 11:00 EST by TOMASZ JEAN-BAPTISTE RN-Utilization Review Primary Insurance Authorization Authorization and Policy Numbers : Insurance 1 Health Plan: MEDICARE Policy Number: [id number] Authorization Number: Insurance 2 Health Plan: AARP N Policy Number: [id number] Authorization Number: Insurance Primary Name : MEDICARE Policy Number: [id number] Authorized Service Begin Date-Primary : 12/28/2018 EST Historical Authorization Comments-Primary : No Authorization Comments Found TOMASZ JEAN-BAPTISTE, RN-Utilization Review - 12/29/2018 11:00 EST documented in this encounter Plan of Treatment Not on file documented as of this encounter Visit Diagnoses Not on filedocumented in this encounter Care Teams Retail Chain Store Area Supervisor Relationship Specialty Start Date End Date Emily Estrada [address] [place] [phone] PCP - General 05/14/22 06/09/24 [facility], Provider Not In The System, [place] [address] PCP - General 07/18/24 Lolita Belcher [address], [address] [place] [address] Advanced Registered Nurse Practitioner Primary Care 06/10/24 documented as of this encounter
--- OUTSIDE RECORDS SUMMARY | 2024-09-05 11:14 | XMS_ITS | Encounter Summary ---
Author Organization [employer] ([place], [place], [place], [place]) Address [address] [place] [address] Care Team Providers Care Machine Rigger Name Role Phone Emily Estrada Primary Care Provider Unavail able [facility], Provider Not In The System Primary Care Provider Unavailable Encounter Details Date Type Department Care Team (Late st Contact Info) Description 12/28/2018 Transcribed Document [facility] [place] Family Medicine [address] [place] [address] ProviderJodie MD [address] [place] [address] Social History Tobacco Use Types Packs/Day Years Used Date Smoking Tobacco: Never Assessed Sex and Gender Information Value Date Recorded Sex Assigned at Not on file Legal Sex Male 4:10 PM CDT Gender Identity Not on file Sexual Orientation Straight 05/21/2022 1: 57 PM CDT documented as of this encounter Miscellaneous Notes * Cerner Conversion Note - Jodie ProviderMD - 12/28/2018 10:56 AM BOTTLE FILLER Patient: TAY THOMAS Age: 63 Years Sex: [...] pain continued and presented this morning to [facility] for further evaluation. CT showed [...] Information Primary Care Physician - DESIREE LEE MD-[facility] Attending Physician - IMER PIZARRO MD-INT Admitting Physician - IMER PIZARRO MD-INT Consulting Physician - ANABELLA CRAMER MD-URO Consulting Physician - ARIEL ROSEN MD Referring Physician - VLAD TAYLOR MD-EMR Problem List/Past Medical History Ongoing Gout High cholesterol Hypertension Kidney stone [place] (myocardial infarction) S/P cholecystectomy Thyroid nodule Torn [...] # 0.84 x10(3)/uL (Low) 12/28/2018 05:37 EST [place] % 7.6 % 12/28/2018 05:37 EST [place] # 0.77 K/uL 12/28/2018 05:37 EST Eos [...] Appearance CLEAR2 12/28/2018 05:45 EST Urine Specific [place] 1.023 12/28/2018 05:45 EST Urine pH Dipstick [...] Trace 12/28/2018 05:45 EST Electronically signed by Interface, [facility] Conversion Roto Rooter Operator Cerner at 06/03/2022 10:53 PM CDT documented in this encounter Plan of Treatment Not on file documented as of this encounter Visit Diagnoses Not on filedocumented in this encounter Care Teams Machine Rigger Relationship Specialty Start Date End Date MavisBarEmily ordonez [address] [place] [phone] PCP - General 05/14/22 06/09/24 [facility], Provider Not In The System, [place] [address] PCP - General 07/18/24 Lolita Belcher [address] [place] [address] [facility], [address] [place] [address] Advanced Registered Nurse Practitioner Primary Care 06/10/24 documented as of this encounter
--- OUTSIDE RECORDS SUMMARY | 2024-09-05 11:14 | XMS_ITS | Encounter Summary ---
Author Organization [employer] ([place], [place], [place], [place]) Address [address] [place] [address] Care Team Providers Care Brazer Repair And Salvage Name Role Phone Emily Estrada Primary Care Provider Unavail able [facility], Provider Not In The System Primary Care Provider Unavailable Encounter Details Date Type Department Care Team (Late st Contact Info) Description 12/28/2018 Transcribed Document [facility] Family Medicine [address] [place] [address] ProviderJodie MD [address] [place] [address] Social History Tobacco Use Types Packs/Day Years Used Date Smoking Tobacco: Never Assessed Sex and Gender Information Value Date Recorded Sex Assigned at Not on file Legal Sex Male 4:10 PM CDT Gender Identity Not on file Sexual Orientation Straight 05/21/2022 1: 57 PM CDT documented as of this encounter Miscellaneous Notes * Cerner Conversion Note - Jodie ProviderMD - 12/28/2018 5:10 AM REFUSE AND RECYCLING WORKER ED Triage Entered On: 12/28/2018 5:23 EST Performed On: 12/28/2018 5:18 EST by Khloe Fletcher, MASTER IN CHANCERY Triage Across the Room Triage Date/Time : 12/28/2018 5:18 EST Chief Complaint : c/o lower back pain radiating around to lower abd; Pt dx w/ rt kidney stone on Thursday at [facility] 4.[address] scan; appt to see Dr. Young on Thursday Khloe FletcherMATIAS - 12/28/2018 5:18 EST DCP GENERIC CODE Tracking Acuity : 3 - Urgent Tracking Group : [facility] Khloe Fletcher RN - 12/28/2018 [...] 12/28/2018 05:24:00 EST) Problems(Active) Gout (SNOMED CT :782131728 ) Name of Problem: Gout ; Recorder: Roseanna Humphrey RN; Confirmation: Confirmed ; Classification: Patient Stated ; Code: 197761119 ; Contributor System: PowerChart ; Last Updated: 12/11/2016 1:05 EDT ; Life Cycle Date: 12/11/2016 ; Life Cycle Status: Active ; Vocabulary: SNOMED CT High cholesterol (SNOMED CT :22826753 ) Name of Problem: High cholesterol ; Recorder: Roseanna Humphrey RN; Confirmation: Confirmed ; Classification: Patient Stated ; Code: 81026670 ; Contributor System: Digital FuelChart ; Last Updated: 12/11/2016 1:05 EDT ; Life Cycle Date: 12/11/2016 ; Life Cycle Status: Active ; Vocabulary: SNOMED CT Hypertension (SNOMED CT :5977343046 ) Name of Problem: Hypertension ; Recorder: Roseanna Humphrey RN; Confirmation: Confirmed ; Classification: Patient Stated ; Code: 4077624962 ; Contributor System: PowerChart ; Last Updated: 12/11/2016 1:05 EDT ; Life Cycle Date: 12/11/2016 ; Life Cycle Status: Active ; Vocabulary: SNOMED CT Kidney stone (SNOMED CT :005952755 ) Name of Problem: Kidney stone ; Recorder: Roseanna Humphrey RN; Confirmation: Confirmed ; Classification: Patient Stated ; Code: 369326704 ; Contributor System: PowerChart ; Last Updated: 12/11/2016 1:06 EDT ; Life Cycle Date: 12/11/2016 ; Life Cycle Status: Active ; Vocabulary: SNOMED CT AZ (myocardial infarction) (SNOMED CT :63873599 ) Name of Problem: AZ (myocardial infarction) ; Recorder: Roseanna Humphrey RN; Confirmation: Confirmed ; Classification: Patient Stated ; Code: 89805104 ; Contributor System: PowerChart ; Last Updated: 12/11/2016 1:06 EDT ; Life Cycle Date: 12/11/2016 ; Life Cycle Status: Active ; Vocabulary: SNOMED CT Thyroid nodule (SNOMED CT :455582570 ) Name of Problem: Thyroid nodule ; Recorder: Roseanna Humphrey RN; Confirmation: Confirmed ; Classification: Patient Stated ; Code: 439392653 ; Contributor System: PowerChart ; Last Updated: 12/11/2016 1:06 EDT ; Life Cycle Date: 12/11/2016 ; Life Cycle Status: Active ; Vocabulary: SNOMED CT Torn meniscus (SNOMED CT :1678678824 ) Name of Problem: Torn meniscus ; Recorder: Roseanna Humphrey RN; Confirmation: Confirmed ; Classification: Patient Stated ; Code: 5653851359 ; Contributor System: PowerChart ; Last Updated: 12/11/2016 1:06 EDT ; Life Cycle Date: 12/11/2016 ; Life Cycle Status: Active ; Vocabulary: SNOMED CT Diagnoses(Active) Flank pain Date: 12/28/2018 ; Diagnosis Type: Reason For Visit ; Confirmation: Complaint of ; Clinical Dx: Flank pain ; Classification: Medical ; Clinical Service: Non-Specified ; Code: PNED ; Probability: 0 ; Diagnosis Code: [id number] ED Height and Weight Height Source : Stated Height Entry Format : [place] Height, Feet : 6 ft(Converted to: 183 cm, 72 Inch) Height, Inches : 1 Inch(Converted to: 0 ft 1 Inch, 2.54 cm) Clinical Height : 185.42 cm Weight Source, ED : Critical estimated dosing weight Weight Entry Format : [place] Weight, Pounds : 245 lb Clinical Dosing Weight : 111.36 kg Body Surface Area (BSA) : 2.35 m2 Body Mass Index : 32.4 kg/m2 (HI) [place] Body Weight (IBW) : 78.88 kg Khloe lFetcher RN - 12/28/2018 5:18 EST Pain Assessment [...] on filedocumented in this encounter Care Teams B[employer] Rep[employer] Salv[employer] Relationship Specialty Start Date End Date Emily Estrada [address] [place] [phone] PCP - General 05/14/22 06/09/24 [facility], Provider Not In The System, [place] [address] PCP - General 07/18/24 Lolita Belcher [address], [address] [place] [address] Advanced Registered Nurse Practitioner Primary Care 06/10/24 documented as of this encounter
--- OUTSIDE RECORDS SUMMARY | 2024-09-05 11:14 | XMS_ITS | Encounter Summary ---
Author Organization [employer] ([place], [place], [place], [place]) Address [address] [place] [address] Care Team Providers Care Art Gallery Internship Name Role Phone Emily Estrada Primary Care Provider Unavail able [facility], Provider Not In The System Primary Care Provider Unavailable Encounter Details Date Type Department Care Team (Late st Contact Info) Description 12/28/2018 Transcribed Document [facility] Family Medicine [address] [place] [address] ProviderJodie MD [address] [place] [address] Social History Tobacco Use Types Packs/Day Years Used Date Smoking Tobacco: Never Assessed Sex and Gender Information Value Date Recorded Sex Assigned at Not on file Legal Sex Male 4:10 PM CDT Gender Identity Not on file Sexual Orientation Straight 05/21/2022 1: 57 PM CDT documented as of this encounter Miscellaneous Notes * Cerner Conversion Note - Jodie ProviderMD - 12/28/2018 9:54 AM SALES AND RETAIL MANAGEMENT RECRUITER Shift Summary Note Entered On: 12/28/2018 9:54 EST Performed On: 12/28/2018 9:54 EST by Maricarmen Montenegro RN Shift Summary Note Shift Summary Note : Patient voided. Urine strainer has a stone. Placed in specimen cup Maricarmen Montenegro RN - 12/28/2018 9:54 EST documented in this encounter Plan of Treatment Not on file documented as of this encounter Visit Diagnoses Not on filedocumented in this encounter Care Teams Art Gallery Internship Relationship Specialty Start Date End Date Emily Estrada [address] [facility] [address] [place] [address] PCP - General 05/14/22 06/09/24 [facility], Provider Not In The System, [place] [address] PCP - General 07/18/24 Lolita Belcher [address] [place] [address] [facility], [address] [place] [address] Advanced Registered Nurse Practitioner Primary Care 06/10/24 documented as of this encounter
--- OUTSIDE RECORDS SUMMARY | 2024-09-05 11:14 | XMS_ITS | Encounter Summary ---
Author Organization [employer] ([place], [place], [place], [place]) Address [address] [place] [address] Care Team Providers Care Data Compiler Name Role Phone Emily Estrada Primary Care Provider Unavail able [facility], Provider Not In The System Primary Care Provider Unavailable Encounter Details Date Type Department Care Team (Late st Contact Info) Description 12/28/2018 Transcribed Document [facility] Family Medicine [address] [place] [address] ProviderJodie MD [address] [place], [place] [id number] Social History Tobacco Use Types Packs/Day Years Used Date Smoking Tobacco: Never Assessed Sex and Gender Information Value Date Recorded Sex Assigned at Not on file Legal Sex Male 4:10 PM CDT Gender Identity Not on file Sexual Orientation Straight 05/21/2022 1: 57 PM CDT documented as of this encounter Miscellaneous Notes * Cerner Conversion Note - Jodie ProviderMD - 12/28/2018 11:11 AM PCMH SPECIALIST [address] , [place] [address] Patient Copy Patient Information: Name: TAY THOMAS Current Date: 12/28/2018 11:11:54 : 1955 Patient Address: [place] [address] Patient Attending Physician: IMER PIZARRO MD-INT Primary Care Provider: DESIREE LEE MD-[facility] Primary Care Provider Discharge Diagnosis: Left ureteral stone Weight on Admission: 245 lb, 0 oz Comment: Follow-up Instructions: With: Address: When: Follow up with primary care provider Within 5 to 7 days With: Address: When: VLAD LEPE MD-URO [address] [place] [address] [place] [address] 12:00 AM Comments: Call for follow up [...] Rhubarb. ? Beets. ? Potato chips and cameroonian fries. ? Nuts. ??? If you regularly take a diuretic medicine, make sure to eat at least 1?2 fruits or vegetables high in potassium each day. These include: ? Avocado. ? Banana. ? [place], prune, carrot, or tomato juice. ? Baked [...] 05/30/2011 Document Revised: 01/13/2017 Document Reviewed: 01/13/2017 [employer] Interactive Patient Education ? 2019 [employer] Kidney Stones Kidney stones (urolithiasis) are [...] kidney stones in the future. ??? Take mhqa-xww-sjdgvbu and prescription medicines only as told by [...] 02/02/2006 Document Revised: 07/16/2017 Document Reviewed: 07/18/2016 [employer] Interactive Patient Education ? 2019 [employer] CIGARETTE SMOKING: The facts are clear, cigarette smoking will shorten your life. Smoking can cause many illnesses along the way. As a healthcare provider, we recommend that you stop smoking. Assistance with quitting is available by contacting 2-501-NKYO-NOW. This is a free resource providing counseling, [...] Be sure to sign up for the [employer] patient portal, which gives you 08/09 access to your medical information ??? including these discharge instructions ??? using your computer, smartphone, or tablet. Just go to [employer] to get started. Questions? Call . [facility] would like to thank you for allowing us to assist you with your healthcare needs. WILLIAM Nascimento TERRY L, (or physician relations representative) have received the above patient education materials/instructions and have verbalized understanding: Patient Signature _ Date/Time Patient Alliances Consultant Signature (if needed) Date/Time Clinician/Hospital Alliances Consultant Signature (if needed) Date/Time documented in this encounter Plan of Treatment Not on file documented as of this encounter Visit Diagnoses Not on filedocumented in this encounter Care Teams Data Compiler Relationship Specialty Start Date End Date DayAbebaBarEmily ordonez [address] [facility] [address] [place] [address] PCP - General 05/14/22 06/09/24 [facility], Provider Not In The System, [place] [address] PCP - General 07/18/24 Lolita Belcher [address] [place] [facility] [address] [facility], [address] [place] [address] Advanced Registered Nurse Practitioner Primary Care 06/10/24 documented as of this encounter
--- OUTSIDE RECORDS SUMMARY | 2024-09-05 11:14 | XMS_ITS | Encounter Summary ---
Author Organization [employer] ([place], [place], [place], [place]) Address [address] [place] [address] Care Team Providers Care Heat Engineering Teacher Name Role Phone Emily Estrada Primary Care Provider Unavail able [facility], Provider Not In The System Primary Care Provider Unavailable Encounter Details Date Type Department Care Team (Late st Contact Info) Description 12/28/2018 Transcribed Document [facility] Family Medicine [address] [place] [address] ProviderJodie MD [address] [place], [place] [address] Social History Tobacco Use Types Packs/Day Years Used Date Smoking Tobacco: Never Assessed Sex and Gender Information Value Date Recorded Sex Assigned at Not on file Legal Sex Male 4:10 PM CDT Gender Identity Not on file Sexual Orientation Straight 05/21/2022 1: 57 PM CDT documented as of this encounter Miscellaneous Notes * Cerner Conversion Note - Jodie ProviderMD - 12/28/2018 11:48 AM GAME FARM SUPERVISOR [facility] [place] [address] TAY THOMAS :1955 Visit Time:12/28/2018 Your Visit Summary Your Care Team Admitting Physician - VLAD TAYLOR MD-EMR PHY, UNKNOWN IMER PIZARRO MD-INT Attending Physician - VLAD TAYLOR MD-IMER ARREDONDO MD-INT Primary Care Physician - DESIREE LEE MD-[facility] Referring Physician - VLAD TAYLOR MD-EMR Your Diagnosis Flank pain Genitourinary Left ureteral stone These Are Your Goals to get rid of the stones and pain. Discharge Vitals Temperature 36.7 ??C Respiratory Rate 18 Blood Pressure 125/77 What to do next Follow-Up Appointments Follow Up with VLAD LEPE MD-URO When 01/07/2019 12:00 AM EST Comments Call for follow up appointment Where: [address] [facility] [address] [place] [id number]- Follow Up with Follow up with primary [...] Rhubarb. ? Beets. ? Potato chips and turks and caicos islander fries. ? Nuts. ??? If you regularly take a diuretic medicine, make sure to eat at least 1???2 fruits or vegetables high in potassium each day. These include: ? Avocado. ? Banana. ? [place], prune, carrot, or tomato juice. ? Baked [...] Casseroles. Pizza. Lasagna. Frozen meals. Potato chips. Trinidadian fries. Summary ??? You can reduce your [...] 05/30/2011 Document Revised: 01/13/2017 Document Reviewed: 01/13/2017 [employer] Interactive Patient Education ?? 2019 Else[employer] Inc. Dietary Guidelines to Help Prevent Kidney [...] Rhubarb. ? Beets. ? Potato chips and turks and caicos islander fries. ? Nuts. ??? If you regularly take a diuretic medicine, make sure to eat at least 1???2 fruits or vegetables high in potassium each day. These include: ? Avocado. ? Banana. ? [place], prune, carrot, or tomato juice. ? Baked [...] Casseroles. Pizza. Lasagna. Frozen meals. Potato chips. Trinidadian fries. Summary ??? You can reduce your [...] 05/30/2011 Document Revised: 01/13/2017 Document Reviewed: 01/13/2017 [employer] Interactive Patient Education ?? 2019 [employer] Kidney Stones Kidney stones (urolithiasis) are [...] kidney stones in the future. ??? Take oxdj-lsi-cmytxdd and prescription medicines only as told by [...] 02/02/2006 Document Revised: 07/16/2017 Document Reviewed: 07/18/2016 [employer] Interactive Patient Education ?? 2019 [employer]. Emergency Awareness and Preventative Care STROKE [...] Assistance with quitting is available by contacting 1-637-JQMFNOW. This is a free resource providing counseling, support, and referral. Or you may contact your personal physician. [employer] Suicide Prevention Lifeline: The National Suicide Prevention [...] range between ( 0.0 and 7.0 ) [place] #: 0.77 K/uL -- Normal range between ( 0.16 and 1.00 ) [place] #: 0.02 x10(3)/uL -- Normal range between ( 0.00 and 0.80 ) [place] %: 7.6 % -- Normal range between [...] /LPF Urine Bilirubin Dipstick: Negative Urine Specific [place]: 1.023 -- Normal range between ( 1.005 [...] was given the opportunity to ask questions. Patient/Category Analyst Name: Patient/Category Analyst Signature: Relationship to Patient: Clinician/Hospital Category Analyst Signature: Date: documented in this encounter Plan of Treatment Not on file documented as of this encounter Visit Diagnoses Not on filedocumented in this encounter Care Teams Heat Engineering Teacher Relationship Specialty Start Date End Date Emily Estrada [address] [facility] [address] [place] [address] PCP - General 05/14/22 06/09/24 [facility], Provider Not In The System, [place] [address] PCP - General 07/18/[address] [place] [address], [address] [place] [id number] Advanced Registered Nurse Practitioner Primary Care 06/10/24 documented as of this encounter
--- OUTSIDE RECORDS SUMMARY | 2024-09-05 11:14 | XMS_ITS | Encounter Summary ---
Author Organization [employer] ([place], [place], [place], [place]) Address [address] [place] [address] Care Team Providers Care Part Maker Name Role Phone Emily Estrada Primary Care Provider Unavail able [facility], Provider Not In The System Primary Care Provider Unavailable Encounter Details Date Type Department Care Team (Late st Contact Info) Description 12/28/2018 Transcribed Document [facility] Family Medicine [address] [place] [address] ProviderJodie MD [address] [place] [address] Social History Tobacco Use Types Packs/Day Years Used Date Smoking Tobacco: Never Assessed Sex and Gender Information Value Date Recorded Sex Assigned at Not on file Legal Sex Male 4:10 PM CDT Gender Identity Not on file Sexual Orientation Straight 05/21/2022 1: 57 PM CDT documented as of this encounter Miscellaneous Notes * Cerner Conversion Note - Jodie ProviderMD - 12/28/2018 8:37 AM PHOTOGRAPHY ASSISTANT Admission History, Adult Entered On: 12/28/2018 9:38 [...] w/ rt kidney stone on Thursday at [facility] 4.[address] scan; appt to see Dr. Young on Thursday Primary Language : Icelandic Communication Barrier : None BETTY HOPKINS RN - 12/28/2018 9:24 EST Fall Risk Scales ABCs Fall Injury Risk Identification : None ACEVES Hx Falls Immediate/Within 3 Months : No Aceves Secondary Diagnosis : No ACEVES Use of Ambulatory Aid : None ACEVES IV Therapy or IV Access : Yes Aceves Gait/Transferring : Normal, bedrest, immobile Aecves Mental Status : Oriented to own ability Aceves Fall Risk Score : 20 ACEVES Fall Scale Risk Level : 0-24 Low Risk [place] Fall Interventions : Adequate lighting, Bed in [...] Source : Stated Height Entry Format : [place] Height, Feet : 6 ft(Converted to: 183 cm, 72 Inch) Height, Inches : 1 Inch(Converted to: 0 ft 1 Inch, 2.54 cm) Clinical Height : 185.42 cm Weight Source : Standing scale Weight Entry Format : [place] Clinical Dosing Weight : 116.62 kg Weight, Pounds : 256 lb Weight, Ounces : 9 oz Body Surface Area (BSA) : 2.39 m2 Body Mass Index : 33.9 kg/m2 (HI) [place] Body Weight : 79 kg BETTY HOPKINS [...] BETTY HOPKINS RN - 12/28/2018 9:24 EST [place] Suicide Severity Rating Scale (C-SSRS) CSSRS Past [...] on filedocumented in this encounter Care Teams Part Maker Relationship Specialty Start Date End Date Day-Bar, Emily [address] [place] [address] PCP - General 05/14/22 06/09/24 [facility], Provider Not In The System, [place] [address] PCP - General 07/18/24 Lolita Belcher [address] [place] [address] [facility], [address] [place] [address] Advanced Registered Nurse Practitioner Primary Care 06/10/24 documented as of this encounter
--- OUTSIDE RECORDS SUMMARY | 2024-09-05 11:14 | XMS_ITS | Encounter Summary ---
Author Organization [employer] ([place], [place], [place], [place]) Address [address] [place] [address] Care Team Providers Care Beef Specialist Name Role Phone Emily Estrada Primary Care Provider Unavail able [facility], Provider Not In The System Primary Care Provider Unavailable Encounter Details Date Type Department Care Team (Late st Contact Info) Description 12/28/2018 Transcribed Document [facility] [place] [address] [place] [address] ProviderJodie MD [address] [place] [address] Social History Tobacco Use Types Packs/Day Years Used Date Smoking Tobacco: Never Assessed Sex and Gender Information Value Date Recorded Sex Assigned at Not on file Legal Sex Male 4:10 PM CDT Gender Identity Not on file Sexual Orientation Straight 05/21/2022 1: 57 PM CDT documented as of this encounter Miscellaneous Notes * Cerner Conversion Note - Jodie ProviderMD - 12/28/2018 5:25 AM INSTRUCTIONAL TECHNOLOGY COACH Pain Assessment Entered On: 12/28/2018 7:08 EST [...] on filedocumented in this encounter Care Teams Beef Specialist Relationship Specialty Start Date End Date Emily Estrada [address] [place] [phone] PCP - General 05/14/22 06/09/24 [facility], Provider Not In The System, [place] [address] PCP - General 07/18/24 Lolita Belcher [address] [address], [address] [place] [address] Advanced Registered Nurse Practitioner Primary Care 06/10/24 documented as of this encounter
--- NOTE | 2024-09-05 11:15 | XR_ITS ---
FINAL REPORT CLINICAL HISTORY: CALCULUS OF KIDNEY COMPARISON: 06/20/2024 FINDINGS: A single view of the abdomen was obtained. The visualized intestinal gas pattern appears unremarkable without evidence to suggest obstruction. Surgical clips from prior cholecystectomy are noted. There are surgical changes in the lumbar spine. A few tiny left renal stones measure 2 mm. IMPRESSION: Minimal left nephrolithiasis. Reviewed, Interpreted and Dictated by Kira Anaya MD Transcribed by Yolande Hoffman Authenticated and [facility]
--- OUTSIDE RECORDS SUMMARY | 2024-09-05 11:15 | XMS_ITS | Encounter Summary ---
Author Organization [employer] ([place], [place], [place], [place]) Address [address] [place] [address] Care Team Providers Care Mobile Crane Operator Name Role Phone Emily Estrada Primary Care Provider Unavail able [facility], Provider Not In The System Primary Care Provider Unavailable Encounter Details Date Type Department Care Team (Late st Contact Info) Description 12/28/2018 Transcribed Document [facility] [place] [address] [place] [address] ProviderJodie MD [address] [place] [address] Social History Tobacco Use Types Packs/Day Years Used Date Smoking Tobacco: Never Assessed Sex and Gender Information Value Date Recorded Sex Assigned at Not on file Legal Sex Male 4:10 PM CDT Gender Identity Not on file Sexual Orientation Straight 05/21/2022 1: 57 PM CDT documented as of this encounter Miscellaneous Notes * Cerner Conversion Note - Jodie ProviderMD - 12/28/2018 11:22 AM SHOVEL MECHANIC Initial Discharge Planning Entered On: 12/28/2018 11:25 EST Performed On: 12/28/2018 11:22 EST by FORD BERMAN Rn-Director Corporate Communications Initial Assessment I Previously Documented Living Environment : No qualifying data available. Living Situation : Home Patient Lives With : Spouse Emergency Contact #1 : Kelsie Germain Emergency Contact #1 Emergency Contact #1 Relationship : Emergency Contact #2 : na Emergency Contact #2 Phone Number : na Emergency Contact #2 Relationship : sergio FORD BERMAN Rn-Director Corporate Communications - 12/28/2018 11:22 EST Initial Assessment II Sensory and Motor Deficits : None Current Home Treatments and Equipment : None FORD BERMAN Rn-Director Corporate Communications - 12/28/2018 11:22 EST Discharge Needs I Anticipated Discharge Date : 12/28/2018 EST Current Home Treatment/Equipment : Current Home Treatment/Equipment No qualifying data available. Post Acute/Home Treatments : None Documentation Status Complete : Yes FORD BERMAN Rn-Director Corporate Communications - 12/28/2018 11:22 EST Discharge Needs II Professional Skilled Services : Professional Skilled Services No qualifying data available. Needs Assistance with Transportation : No Discharge Options Discussed with Patient : Outpatient services FORD BERMAN Rn-Director Corporate Communications - 12/28/2018 11:22 EST Narrative Note Narrative [...] way to pick him up. FORD BERMAN Rn-Director Corporate Communications - 12/28/2018 11:22 EST documented in this encounter Plan of Treatment Not on file documented as of this encounter Visit Diagnoses Not on filedocumented in this encounter Care Teams Mobile Crane Operator Relationship Specialty Start Date End Date Emily Estrada [address] [facility] [address] [place] [address] PCP - General 05/14/22 06/09/24 [facility], Provider Not In The System, [place] [address] PCP - General 07/18/24 Lolita Belcher [address] [place] [address] [facility], [address] [place] [address] Advanced Registered Nurse Practitioner Primary Care 06/10/24 documented as of this encounter
--- OUTSIDE RECORDS SUMMARY | 2024-09-05 11:15 | XMS_ITS | Encounter Summary ---
Author Organization [employer] ([place], [place], [place], [place]) Address [address] [place] [address] Care Team Providers Care Machine Printer Name Role Phone Emily Estrada Primary Care Provider Unavail able [facility], Provider Not In The System Primary Care Provider Unavailable Encounter Details Date Type Department Care Team (Late st Contact Info) Description 12/28/2018 Transcribed Document [facility] Family Medicine [address] [place] [address] ProviderJodie MD [address] [place] [address] Social History Tobacco Use Types Packs/Day Years Used Date Smoking Tobacco: Never Assessed Sex and Gender Information Value Date Recorded Sex Assigned at Not on file Legal Sex Male 4:10 PM CDT Gender Identity Not on file Sexual Orientation Straight 05/21/2022 1: 57 PM CDT documented as of this encounter Miscellaneous Notes * Cerner Conversion Note - Historical ProviderMD - 12/28/2018 11:23 AM 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 Suárez -no need for abx therapy Hypothyroidism -continue levothyroxine Gout/Uric acid stones -continue allopurinol Anemia -felt dilutional -monitor [1] Studies Radiology Results (Last 48 hours) [id number] -- 12/28/2018 08:06 CT Abdomen Pelvis WO [...] began on Thursday morning. He went to [facility] on Thursday and was diagnosed with a 4.6 cm renal stone and given pain medicine and follow up with Dr. Lepe his primary urologist on [place]. Patient states that overnight his pain intensified, he had a low-grade temperature (he did not use a thermometer), he began to have nausea with vomiting and thus presented to [facility]. In the ER he was found [...] improved, seen by urology and ok to [place]. Has fu with Dr. Lepe. Pt has [...] 12/28/2018 11:11 EST Electronically signed by Jane [facility] Conversion Ceiling Insulation Blower Cerner at 06/03/2022 10:28 PM CDT documented in this encounter Plan of Treatment Not on file documented as of this encounter Visit Diagnoses Not on filedocumented in this encounter Care Teams Machine Printer Relationship Specialty Start Date End Date Emily Estrada [address] [place] [phone] PCP - General 05/14/22 06/09/24 [facility], Provider Not In The System, [place] [address] PCP - General 07/18/24 Lolita Belcher [address] [place] [address], [address] [address] Advanced Registered Nurse Practitioner Primary Care 06/10/24 documented as of this encounter
--- OUTSIDE RECORDS SUMMARY | 2024-09-05 11:15 | XMS_ITS | Referral Summary ---
Author Organization [employer] ([place], [place], [place], [place]) Address [address] [place] [address] Care Team Providers Care Security And Privacy Consultant Name Role Phone [facility], Provider Not In The System Primary Care Provider Unavailable Encounters Date Type Department Care Team Description 07/18/2024 10:41 PM EDT - 07/19/2024 2:16 AM EDT Emergency [facility] Emergency Department [address] [place] [address] Kareem Martel MD Right ureteral stone (Primary Dx); Renal colic on right side Discharge Disposition: Home or Self Care 07/18/2024 Travel 07/12/2024 1:38 PM EDT - 07/12/2024 11:59 PM EDT Hospital Encounter [facility] Diagnostic Imaging - [address] [place] [phone] Shi Alvarenga PA Calculus of kidney Discharge Disposition: Home or Self Care 07/12/2024 Outside Orders [facility] Diagnostic Imaging - [place] [facility] [address] [place] [address] Shi Alvarenga PA Calculus of kidney (Primary Dx) 06/08/2024 3:46 PM EDT - 06/10/2024 11:20 AM EDT Hospital Encounter [facility] Telemetry Unit [address] [place] [address] Shannan Andrea MD Discharge Disposition: Home or Self Care 06/09/2024 2:41 PM EDT Anesthesia Event [facility] Surgery Department [address] [place] [address] Abhay Barbour CRNA Qureshi, Muhammad, MD 06/09/2024 1:50 PM EDT - 06/09/2024 3:22 PM EDT Surgery [facility] Surgery Department [address] [place] [address] Kareem Young MD LITHOTRIPSY,EXTRACO RPOREAL [...] Max Daily Amount: 300 mg Active nitrofurantoin, macrocrystal-mo nohydrate, (MACROBID) 100 MG capsule Take 1 capsule (100 mg total) by mouth 2 (two) times daily with breakfast and dinner. 30 capsule Active Active Problems Problem Noted Date Diagnosed Date [...] your living situation today? I have a [facility] place to live 06/08/[address] you li ve. Do you have problems with any of the following? None of the above 06/08/2024 Food Insecurity Answer Date Recorded Within the past 12 months, y ou worried that your food would run out before you got money to buy more. Never true 06/08/2024 Within the past 12 months, [place] he food you bought just didn't last [...] Do you speak a language other than [place] Citizen at [facility]? No 06/08/2024 Do you want help with [...] on file Medical Devices Implanted Type Area Drywall Hanger Device Identifier Shelf Expiration Date Model / Serial / Lot Bone Josemanuel Formable Cell 5cc Bl-1600-002 - [id number] Implanted:Qty : 1 on 05/03/2022 by Edson Barfield MD at [facility] IMPLANTS N/A: Back LIFENET:LIFENET TRANSPLANT SRV 04/14/2023 BL-1600-0 [id number] / Scr Spne Arash Fix 7x50mm 750 - [id number] Implanted:Qty : 4 on 05/03/2022 by Edson Barfield MD at [facility] IMPLANTS N/A: Back J &J:DEPUY:DEPUY SPINE 7 50 / 50 / Mis Jazzy Ply Scrw Set Ti - [id number] Implanted:Qty : 4 on 05/03/2022 by Edson Barfield MD at [facility] IMPLANTS N/A: Back J &J:DEPUY:DEPUY SPINE 15-0 00 / 0 00 / Teo Pre Load 40mm [id number] - [id number] Implanted:Qty : 2 on 05/03/2022 by Edson Barfield MD at [facility] IMPLANTS N/A: Back J &J:DEPUY:DEPUY SPINE -0 40 / -0 40 / Cage Eit Plif H 11mm 8d 26/9 [id number] - [id number] Implanted:Qty : 1 on 05/03/2022 by Edson Barfield MD at [facility] IMPLANTS N/A: Back J &J:DEPUY:DEPUY SPINE 03/18/2027 [id number] / / [id number] Sealant Durasl Spine 5ml [id number] - [id number] Implanted:Qty : 1 on 05/03/2022 by Edson Barfield MD at [facility] IMPLANTS N/A: Back [employer] 10/17/2023 [id number] / / [id number] Pwdr Cellerate Rx 5gm Surgical Zxr-25-Nxllan - [id number] Implanted:Qty : 1 on 05/03/2022 by Edson Barfield MD at [facility] IMPLANTS N/A: Back [employer] 12/17/2023 [facility]-05-SA CRXP / / [id number] Stent Uret Percflx + 4.8frx28 [id number] - [id number] Implanted:Qty : 1 on 06/09/2024 by Kareem Young MD at [facility] IMPLANTS Right: Ureter [employer]GYNE COLOG[employer] 10/18/2026 [id number] / / [id number] Explanted Type Area Drywall Hanger Device Identifier Shelf Expiration Date Model / Serial / Lot Cath Uret Pollack 5fr [id number] - [id number] Implanted:Kareem Blandon MD (Quantity not on file) Explanted:Qty: 1 on 06/09/2024 at [facility] Right: Ureter COOK 11/17/2026 [id number] / / [id number] Procedures Procedure Name Priority Date/Time Associated Diagnosis [...] ANESTHESIA INTUBATION Routine 06/09/2024 2:48 PM EDT MS CYSTO W/INSERT URETERAL STENT 06/09/2024 2:39 PM EDT Diagnosis unknown MS LITHOTRIPSY XTRCORP SHOCK WAVE 06/09/2024 2:39 PM [...] Yellow 07/19/2024 12:21 AM EDT [facility] Clarity, UA Turbid(A) Clear 07/19/2024 12:21 AM EDT [facility] Specific Sevier, UA 1.022 1.005 - 1.030 07/19/2024 12:21 AM EDT [facility] pH, UA 5.5(L) 6.0 - 8.0 07/19/2024 12:21 AM EDT [facility] Leukocytes, UA Negative Negative 07/19/2024 12:21 AM EDT [facility] Nitrite, UA Negative Negative 07/19/2024 12:21 AM EDT [facility] Protein, UA Negative Negative 07/19/2024 12:21 AM EDT [facility] Glucose, UA Normal Normal 07/19/2024 12:21 AM EDT [facility] Ketones, UA Negative Negative 07/19/2024 12:21 AM EDT [facility] Bilirubin, UA Negative Negative 07/19/2024 12:21 AM EDT [facility] Blood, UA 3+(A) Negative 07/19/2024 12:21 AM EDT [facility] Urobilinogen, UA Normal Normal 07/19/2024 12:21 AM EDT [facility] Specimen Source Urine, Clean Catch 07/19/2024 12:21 AM EDT [facility] Urine URINE SPECIMEN COLLECTION, CLEAN CATCH / Unknown 07/19/2024 12:09 AM EDT 07/19/2024 12:10 AM EDT us Ariella Grant PA-C URINE ORDERABLES Final Res ult [facility] [address] [place], [place] [address] [phone] * (ABNORMAL) Urinalysis Microscopic Only (07/19/2024 12:09 AM EDT) WBC, UA 6-10(A) None Seen /HPF 07/19/2024 12:21 AM EDT [facility] RBC, UA Too Numerous To Count(A) None Seen /HPF 07/19/2024 12:21 AM EDT [facility] Bacteria, UA 1+(A) Trace, None Seen 07/19/2024 12:21 AM EDT [facility] Mucus 1+(A) None Seen 07/19/2024 12:21 AM EDT [facility] SQUAMOUS EPITHELIAL None Seen None Seen /HPF 07/19/2024 12:21 AM EDT [facility] Urine URINE SPECIMEN COLLECTION, CLEAN CATCH / Unknown 07/19/2024 12:09 AM EDT 07/19/2024 12:10 AM EDT us Ariella Grant PA-C URINE ORDERABLES Final Res ult [facility] [address] [place] [address], [facility] [phone] * (ABNORMAL) CBC with Auto Diff (07/18/2024 11:28 PM EDT) WBC 8.6 3.9 - 10.0 K/ L 07/18/2024 11:32 PM EDT [facility] RBC 4.54(L) 4.63 - 6.08 M/ L 07/18/2024 11:32 PM EDT [facility] Hemoglobin 14.1 11.2 - 15.7 GM/DL 07/18/2024 11:32 PM EDT [facility] Hematocrit 42.0 40.1 - 51.0 % 07/18/2024 11:32 PM EDT [facility] MCV 93 79 - 95 fL 07/18/2024 11:32 PM EDT [facility] MCH 31.1 25.6 - 32.2 pg 07/18/2024 11:32 PM EDT [facility] MCHC 33.6 32.3 - 36.5 GM/DL 07/18/2024 11:32 PM EDT [facility] RDW 13.6 11.6 - 14.4 % 07/18/2024 11:32 PM EDT [facility] Platelets 236 163 - 369 K/CU MM 07/18/2024 11:32 PM EDT [facility] MPV 9.7 9.4 - 12.4 fL 07/18/2024 11:32 PM EDT [facility] % Neutros 62 34 - 68 % 07/18/2024 11:32 PM EDT [facility] % Lymphs 24 19 - 53 % 07/18/2024 11:32 PM EDT [facility] % Monos 9 4 - 13 % 07/18/2024 11:32 PM EDT [facility] % Eos 4 1 - 7 % 07/18/2024 11:32 PM EDT [facility] % Baso 1 0 - 1 % 07/18/2024 11:32 PM EDT [facility] # Neutros 5.33 1.56 - 6.13 K/ L 07/18/2024 11:32 PM EDT [facility] # Lymphs 2.05 1.18 - 3.74 K/ L 07/18/2024 11:32 PM EDT [facility] # Monos 0.74 0.24 - 0.82 K/ L 07/18/2024 11:32 PM EDT [facility] # Eos 0.36 0.04 - 0.54 K/ L 07/18/2024 11:32 PM EDT [facility] # Baso 0.08 0.01 - 0.08 K/ L 07/18/2024 11:32 PM EDT [facility] Immature Granulocytes-Re lative 0.20 0.00 - 0.60 % 07/18/2024 11:32 PM EDT [facility] # IG 0.02 0.00 - 0.05 K/uL 07/18/2024 11:32 PM EDT [facility] Blood 07/18/2024 11:2 8 PM EDT 07/18/2024 11:28 PM EDT Narrative [facility] - 07/18/2024 11:32 PM EDT [...] Flag noted Atypical Lymph flag noted Ariella Grant PA-C LAB BLOOD ORDERABLES Final Result Performing Organization Address [facility]/ZIP Co de Phone Number [facility] [address] [place] [address], [facility] [phone] * Lactic Acid with reflex (SJ) (07/18/2024 11:28 PM EDT) Lactic Acid Level (mmol/L) 1.0 0.4 - 2.0 mmol/L 07/18/2024 11:58 PM EDT [facility] Comment:If a Lactic Acid Lev el with Reflex if Indicated result is greater than 2.0, a Lactic Acid Level will be ordered to be collected 2 hours after the original collection time. Blood 07/18/2024 11:2 8 PM EDT 07/18/2024 11:28 PM EDT Ariella Grant PA-C LAB BLOOD ORDERABLES Final Result Performing Organization Address [facility] Co de Phone Number [facility] [address] [phone] * Blood Culture (07/18/2024 11:28 PM EDT) Only the most recent of2 resultswithin the time period is included. Result No growth in 5 days 07/24/2024 10:01 AM EDT [facility] Blood 07/18/2024 11:2 8 PM EDT 07/18/2024 11:28 PM EDT Ariella Grant PA-C MICROBIOLOGY - GENERAL ORD ERABLES Final Result Performing Organization Address [facility]/ZIP Co de Phone Number [facility] [address] [phone] * C-Reactive Protein (07/18/2024 11:27 PM EDT) CRP <0.30 0.00 - 0.90 mg/dL 07/18/2024 11:58 PM EDT [facility] Blood Venipuncture / Unknown 07/18/2024 11:27 PM EDT 07/18/2024 11:27 PM EDT Ariella Grant PA-C LAB BLOOD ORDERABLES Final Result [facility] [address] [phone] * (ABNORMAL) Comprehensive metabolic panel (07/18/2024 11:27 PM EDT) Pathologist [facility] Sodium 140 136 - 146 meq/L 07/18/2024 11:58 PM EDT [facility] Potassium 4.1 3.5 - 5.1 meq/L 07/18/2024 11:58 PM EDT [facility] Chloride 109 102 - 112 meq/L 07/18/2024 11:58 PM EDT [facility] CO2 28 21 - 32 meq/L 07/18/2024 11:58 PM EDT [facility] Calcium 9.2 8.5 - 10.1 mg/dL 07/18/2024 11:58 PM EDT [facility] Glucose 115(H) 74 - 106 mg/dL 07/18/2024 11:58 PM EDT [facility] BUN 28(H) 7 - 22 mg/dL 07/18/2024 11:58 PM EDT [facility] Creatinine 0.93 0.70 - 1.30 mg/dL 07/18/2024 11:58 PM EDT [facility] BUN/Creatinine 30(H) 8 - 20 07/18/2024 11:58 PM EDT [facility] Albumin 4.0 3.4 - 5.0 g/dL 07/18/2024 11:58 PM EDT [facility] Alkaline Phosphatase 169(H) 27 - 136 U/L 07/18/2024 11:58 PM EDT [facility] ALT 47 12 - 78 U/L 07/18/2024 11:58 PM EDT [facility] AST 37 5 - 37 U/L 07/18/2024 11:58 PM EDT [facility] Total Bilirubin 0.3 0.2 - 1.3 mg/dL 07/18/2024 11:58 PM EDT [facility] Protein, Total 7.6 6.4 - 8.2 gm/dL 07/18/2024 11:58 PM EDT [facility] Anion Gap 7(L) 9 - 20 07/18/2024 11:58 PM EDT [facility] A/G Ratio 1.1 1.1 - 2.5 07/18/2024 11:58 PM EDT [facility] Globulin 3.6 1.5 - 4.5 g/dL 07/18/2024 11:58 PM EDT [facility] Osmolality Calc 285.8 mOsm/kg 11:58 PM EDT [facility] eGFR (mL/min/1.73m2) >60 >=60 mL/min/1.7 3m2 07/18/2024 11:58 PM EDT [facility] Comment:ESTIMATED GFR IS NOT ACCURATE CREATININE CLEARANCE IN PREDICTING GLOMERULAR FILTRATION RATE. ESTIMATED GFR IS NOT APPLICABLE FOR DIALYSIS PATIENTS. Blood Venipuncture / Unknown 07/18/2024 11:27 PM EDT 07/18/2024 11:27 PM EDT Ariella Grant PA-C LAB BLOOD ORDERABLES Final Result [facility] [address] [place] [address] * X-ray abdomen KUB 1 view (07/12/2024 [...] Brigette Sheikh. Transcribed by Helena Sanz PA-C. us Shi NOLAND IMG DIAGNOSTIC IMAGING ORDERABLES Final [...] 4 Number of attempts at approach: 1 us Abhay Barbour CRNA ANESTHESIA ORDERABLES Fin al Result * XR [...] - 146 meq/L 06/09/2024 5:39 AM EDT [facility] Potassium 4.1 3.5 - 5.1 meq/L 06/09/2024 5:39 AM EDT [facility] Chloride 111 102 - 112 meq/L 06/09/2024 5:39 AM EDT [facility] CO2 26 21 - 32 meq/L 06/09/2024 5:39 AM EDT [facility] Anion Gap 8(L) 9 - 20 06/09/2024 5:39 AM EDT [facility] BUN 18 7 - 22 mg/dL 06/09/2024 5:39 AM EDT [facility] Creatinine 0.97 0.70 - 1.30 mg/dL 06/09/2024 5:39 AM EDT [facility] BUN/Creatinine 19 8 - 20 06/09/2024 5:39 AM EDT [facility] Glucose 107(H) 74 - 106 mg/dL 06/09/2024 5:39 AM EDT [facility] Calcium 8.3(L) 8.5 - 10.1 mg/dL 06/09/2024 5:39 AM EDT [facility] Osmolality Calc 283.6 mOsm/kg 5:39 AM EDT [facility] eGFR (mL/min/1.73m2) >60 >=60 mL/min/1.7 3m2 06/09/2024 5:39 AM EDT [facility] Comment:eGFR of <60 suggests chronic kidney disease if found over a 3 month period of time. eGFR <15 indicates renal failure. Blood Venipuncture / Unknown 06/09/2024 5:28 AM EDT 06/09/2024 5:28 AM EDT us Shannan Andrea MD LAB BLOOD ORDERABLES Final Resu lt [facility] [address] [phone] * (ABNORMAL) CBC - Hemogram (SJ-BKR) (06/08/2024 5:26 PM EDT) WBC 9.1 3.9 - 10.0 K/ L 06/08/2024 5:33 PM EDT [facility] RBC 4.13(L) 4.63 - 6.08 M/ L 06/08/2024 5:33 PM EDT [facility] Hemoglobin 12.6 11.2 - 15.7 GM/DL 06/08/2024 5:33 PM EDT [facility] Hematocrit 38.6(L) 40.1 - 51.0 % 06/08/2024 5:33 PM EDT [facility] MCV 94 79 - 95 fL 06/08/2024 5:33 PM EDT [facility] MCH 30.5 25.6 - 32.2 pg 06/08/2024 5:33 PM EDT [facility] MCHC 32.6 32.3 - 36.5 GM/DL 06/08/2024 5:33 PM EDT [facility] RDW 13.2 11.6 - 14.4 % 06/08/2024 5:33 PM EDT [facility] Platelets 214 163 - 369 K/CU MM 06/08/2024 5:33 PM EDT [facility] MPV 9.7 9.4 - 12.4 fL 06/08/2024 5:33 PM EDT [facility] nRBC 0(L) 1 - 5 /100 WBC 06/08/2024 5:33 PM EDT [facility] Blood Venipuncture / Unknown 06/08/2024 5:26 PM EDT 06/08/2024 5:26 PM EDT Shannan Andrea MD LAB BLOOD ORDERABLES Final Resu lt Performing Organization Address City/[facility]/ZIP Co de Phone Number [facility] [address] [phone] * PT/INR, PTT (06/08/2024 5:26 PM EDT) aPTT 28.2 22.0 - 32.0 seconds 06/08/2024 5:45 PM EDT [facility] Protime 10.8 9.0 - 12.0 seconds 06/08/2024 5:45 PM EDT [facility] INR 0.99 0.80 - 1.10 06/08/2024 5:45 PM EDT [facility] Blood Venipuncture / Unknown 06/08/2024 5:26 PM EDT 06/08/2024 5:26 PM EDT us Shannan Andrea MD LAB BLOOD ORDERABLES Final Resu lt Performing Organization Address City/[facility]/ZIP Co de Phone Number [facility] [address] [phone] * XR chest AP portable (06/08/2024 4:55 PM EDT) Anatomical Region Laterality Modality Chest X-Ray 06/09/2024 1:51 AM EDT Impressions 06/09/2024 1:52 AM EDT No acute cardiopulmonary process. Images reviewed, interpreted, dictated and electronically signed by Devon Walker MD Voice non destructive evaluation technician technology (Power Scribe) is used for the dictation of this note and sound-alike words might be erroneously placed despite reviewing this note for accuracy. Errors in dictation may reflect use of voice recognition software and not all errors in non destructive evaluation technician may have been detected prior to signing. [...] electronically signed by Devon Walker MD Voice non destructive evaluation technician technology (Power Scribe) is used for the dictation of this note and sound-alike words might be erroneously placed despite reviewing this note for accuracy. Errors in dictation may reflect use of voice recognition software and not all errors in non destructive evaluation technician may have been detected prior to signing. [...] (MCT) 0 degrees GE MUSE T Wave [place] 0 degrees GE MUSE [place] Diagnosis No QRS complexes found, no ECG [...] 3 Months Insurance MEDICARE PART A B [facility] Marya [place], [place] [id number] [facility] SUPP Advance Directives For more information, please contact: [phone] * Full Code (Latest Code Status on [...] 5:45 PM 05/04/2022 4:41 PM Care Teams Security And Privacy Consultant Relationship Specialty Start Date End Date [facility], Provider Not In The System, [place] [address] PCP - General 07/18/24 Lolita Belcher [facility] [place] [address], [address] [place] [address] Advanced Registered Nurse Practitioner Primary Care 06/10/24
--- OUTSIDE RECORDS SUMMARY | 2024-09-05 11:15 | XMS_ITS | Encounter Summary ---
Author Organization [employer] ([place], [place], [place], [place]) Address [address] [place] [address] Care Team Providers Care Foreign Service Officer Name Role Phone Emily Estrada Primary Care Provider Unavail able [facility], Provider Not In The System Primary Care Provider Unavailable Encounter Details Date Type Department Care Team (Late st Contact Info) Description 12/28/2018 Transcribed Document [facility] Family Medicine [address] [place] [address] ProviderJodie MD [address] [place] [address] Social History Tobacco Use Types Packs/Day Years Used Date Smoking Tobacco: Never Assessed Sex and Gender Information Value Date Recorded Sex Assigned at Not on file Legal Sex Male 4:10 PM CDT Gender Identity Not on file Sexual Orientation Straight 05/21/2022 1: 57 PM CDT documented as of this encounter Miscellaneous Notes * [employer]ner Conversion Note - Jodie ProviderMD - 12/28/2018 5:10 AM SALES REPRESENTATIVE [employer]ANCE [place] Suicide Severity Rating Scale (C-SSRS) Entered On: 12/28/2018 5:45 EST Performed On: 12/28/2018 5:42 EST by CHAVO MENDOZA RN [place] Suicide Severity Rating Scale (C-SSRS) CSSRS Past Month Wish to be : No CSSRS Past Month Suicidal Thoughts : No CSSRS Lifetime Suicide Behavior : No Suicide Severity Rating Score : 0 Suicide Severity Rating : No Additional Care Required at this time Thoughts of Harming/Killing Others : No CHAVO MENDOZA RN - 12/28/2018 5:42 EST Electronically signed by Interface, [facility] Conversion Laboratory [employer]ner at 06/03/2022 10:28 PM CDT documented in this encounter Plan of Treatment Not on file documented as of this encounter Visit Diagnoses Not on filedocumented in this encounter Care Teams Foreign Service Officer Relationship Specialty Start Date End Date DayAbebaBarEmily ordonez [address] [place] [phone] PCP - General 05/14/22 06/09/24 [facility], Provider Not In The System, [place] [address] PCP - General 07/18/24 Lolita Belcher [address] [place] [address], [address] [place] [address] Advanced Registered Nurse Practitioner Primary Care 06/10/24 documented as of this encounter
--- OUTSIDE RECORDS SUMMARY | 2024-09-05 11:15 | XMS_ITS | Encounter Summary ---
Author Organization [employer] ([place], [place], [place], [place]) Address [address] [place] [address] Care Team Providers Care Merchandise Complaint Adjuster Name Role Phone Emily Estrada Primary Care Provider Unavail able [facility], Provider Not In The System Primary Care Provider Unavailable Encounter Details Date Type Department Care Team (Late st Contact Info) Description 12/28/2018 Transcribed Document [facility] [place] [address] [place] [address] ProviderJodie MD [address] [place] [address] Social History Tobacco Use Types Packs/Day Years Used Date Smoking Tobacco: Never Assessed Sex and Gender Information Value Date Recorded Sex Assigned at Not on file Legal Sex Male 4:10 PM CDT Gender Identity Not on file Sexual Orientation Straight 05/21/2022 1: 57 PM CDT documented as of this encounter Miscellaneous Notes * Cerner Conversion Note - Jodie ProviderMD - 12/28/2018 5:10 AM TEST SKEIN WINDER ED Assessment Entered On: 12/28/2018 5:34 EST Performed On: 12/28/2018 5:26 EST by CHAVO MENDOZA, COVER SEAMER Quick Look Assessment Level of Consciousness : Alert, Awake Affect/Behavior : Appropriate, Cooperative, Irritable Orientation : Oriented x 4 Skin Temperature : Warm Skin Description : Normal for ethnicity CHAVO MENDOZA RN - 12/28/2018 5:26 EST ED General-Functional Assess Communication Barrier : None Primary Language : Belizean Any Spiritual/Cultural Needs or Requests : No [...] 12/11/2016 01:11:23 EDT by Roseanna Humphrey RN) Substance Abuse: Drug Use Hx: No. [...] PT REPORTS DX C KIDNEY STONE IN [place] ON THURSDAY. STATES 4.6CM STONE. STATES APT C DR. LEPE ON THURSDAY. PT TOOK PERCET AND FLOMAX C NO RELIEF.PT DESCRIBES PAIN SHARP, STABBING AND INTERMITTANT IN DURATION. [CHAVO MENDOZA RN - 12/28/2018 5:26 EST] ) CHAVO MENDOZA RN - 12/28/2018 5:26 EST Electronically signed by Jane, [facility] Conversion Water Filterer Helper Cerner at 06/03/2022 10:29 PM CDT documented in this encounter Plan of Treatment Not on file documented as of this encounter Visit Diagnoses Not on filedocumented in this encounter Care Teams Merchandise Complaint Adjuster Relationship Specialty Start Date End Date Emily Estrada [address] [address] PCP - General 05/14/22 06/09/24 [facility], Provider Not In The System, [place] [address] PCP - General 07/18/24 Lolita Belcher [address] [place] [address] [facility], [address] [place] [id number] Advanced Registered Nurse Practitioner Primary Care 06/10/24 documented as of this encounter
--- OUTSIDE RECORDS SUMMARY | 2024-09-05 11:15 | XMS_ITS | Encounter Summary ---
Author Organization [employer] ([place], [place], [place], [place]) Address [address] [place] [address] Care Team Providers Care Professor Of Medicine Name Role Phone Emily Estrada Primary Care Provider Unavail able [facility], Provider Not In The System Primary Care Provider Unavailable Encounter Details Date Type Department Care Team (Late st Contact Info) Description 12/28/2018 Transcribed Document [facility] [place] Family Medicine [address] [place] [address] ProviderJodie MD [address] [place] [address] Social History Tobacco Use Types Packs/Day Years Used Date Smoking Tobacco: Never Assessed Sex and Gender Information Value Date Recorded Sex Assigned at Not on file Legal Sex Male 4:10 PM CDT Gender Identity Not on file Sexual Orientation Straight 05/21/2022 1: 57 PM CDT documented as of this encounter Miscellaneous Notes * Cerner Conversion Note - Jodie ProviderMD - 12/28/2018 11:46 AM FINANCIAL SERVICES EDUCATION CONSULTANT Stroke/Warfarin Instructions Entered On: 12/28/2018 11:46 EST Performed On: 12/28/2018 11:46 EST by Maricarmen Montenegro, MATIAS Stroke/Warfarin Instructions Stroke/TIA Discharge Ins : N/A Warfarin Discharge Ins : N/A Maricarmen Montenegro RN - 12/28/2018 11:46 EST documented in this encounter Plan of Treatment Not on file documented as of this encounter Visit Diagnoses Not on filedocumented in this encounter Care Teams Professor Of Medicine Relationship Specialty Start Date End Date Emily Estrada [address] [facility] [address] [place] [address] PCP - General 05/14/22 06/09/24 [facility], Provider Not In The System, [place] [address] PCP - General 07/18/24 Lolita Belcher [address] [place] [address] [facility], [address] [place] [address] Advanced Registered Nurse Practitioner Primary Care 06/10/24 documented as of this encounter
--- OUTSIDE RECORDS SUMMARY | 2024-09-05 11:15 | XMS_ITS | Encounter Summary ---
Author Organization [employer] ([place], [place], [place], [place]) Address [address] [place] [address] Care Team Providers Care Featheredge Machine Operator Name Role Phone Emily Estrada Primary Care Provider Unavail able [facility], Provider Not In The System Primary Care Provider Unavailable Encounter Details Date Type Department Care Team (Late st Contact Info) Description 12/28/2018 Transcribed Document [facility] [place] Family Medicine [address] [place] [address] ProviderJodie MD [address] [place] [address] Social History Tobacco Use Types Packs/Day Years Used Date Smoking Tobacco: Never Assessed Sex and Gender Information Value Date Recorded Sex Assigned at Not on file Legal Sex Male 4:10 PM CDT Gender Identity Not on file Sexual Orientation Straight 05/21/2022 1: 57 PM CDT documented as of this encounter Miscellaneous Notes * Cerner Conversion Note - Historical ProviderMD - 12/28/2018 5:26 AM OVERLOCK WAISTLINE JOINER Patient: TAY THOMAS Age: 63 years Sex: Male : 1955 Associated Diagnoses: Left ureteral stone Author: VLAD TAYLOR MD-EMR Basic Information Additional information: Chief Complaint from Nursing Triage Note : Chief Complaint 12/28/2018 5:18 EST Chief Complaint c/o lower back pain radiating around to lower abd; Pt dx w/ rt kidney stone on Thursday at [facility] 4.[address] scan; appt to see Dr. Young on Thursday . History of Present Illness The patient is a 63-year-old white male. He is a history of kidney stones in the past. He presents today with a three-day history of kirk. flank pain with radiation down into the lower quadrants. It is associated with nausea and vomiting. He was seen at [facility] 2 days ago and diagnosed to 4.6 [...] IV Push, 1-Time, PRN: Nausea/Vomiting Prescriptions Prescribed [place] 7.5 mg-325 mg oral tablet: 1 Tab, [...] (8) Gout High cholesterol Hypertension Kidney stone [place] (myocardial infarction) S/P cholecystectomy Thyroid nodule Torn [...] EST Height Source Stated Height Entry Format Morrill Height/Length, WELSH (ft) 6 ft Height/Length WELSH 1 Inch CLINICALHEIGHT 185.42 cm [place] Body Weight 78.88 kg Weight Source, ED Critical estimated dosing weight Weight Entry Format [place]rill Weight [place]au[place] lb 245 lb CLINICALWEIGHT 111.36 kg Body [...] Color Yellow Urine Appearance Clear Urine Specific [place] 1.023 Urine pH Dipstick 5.5 LOW Urine [...] % LOW Lymph # 0.84 x10(3)/uL LOW Sac % 7.6 % Sac # 0.77 K/uL Eos % 0.2 % Eos # 0.02 x10(3)/uL Baso % 0.6 % Baso # 0.06 x10(3)/uL Slide Review No IG# 0.07 x10(3)/uL HI IG% 0.70 % HI . Radiology results: NAME: TAY THOMAS / SEX: 1955 / Male MRN / ACC#: [id number] / [id number] ORDERING PHYSICIAN: Ordering Provider, Update EXAM REQUESTED: [id number]--OY ABDOMEN & PELVIS W/O CONTRAST FACILITY: [facility] DATE: 12/28/2018 RADIOLOGIST NAME: Erick Giles CLINICAL HISTORY: rlq pain radiating to lower [...] on filedocumented in this encounter Care Teams Featheredge Machine Operator Relationship Specialty Start Date End Date Emily Estrada [address] [place] [address] [place] [address] PCP - General 05/14/22 06/09/24 [facility], Provider Not In The System, [place] [address] PCP - General 07/18/24 Lolita Belcher [facility] [address], [address] [place] [address] Advanced Registered Nurse Practitioner Primary Care 06/10/24 documented as of this encounter
--- OUTSIDE RECORDS SUMMARY | 2024-09-05 11:15 | XMS_ITS | Encounter Summary ---
Author Organization [employer] ([place], [place], [place], [place]) Address [address] [place] [address] Care Team Providers Care National Business Director Name Role Phone Emily Estrada Primary Care Provider Unavail able [facility], Provider Not In The System Primary Care Provider Unavailable Encounter Details Date Type Department Care Team (Late st Contact Info) Description 12/28/2018 Transcribed Document [facility] [place] Family Medicine [address] [place] [address] ProviderJodie MD [address] [place] [address] Social History Tobacco Use Types Packs/Day Years Used Date Smoking Tobacco: Never Assessed Sex and Gender Information Value Date Recorded Sex Assigned at Not on file Legal Sex Male 4:10 PM CDT Gender Identity Not on file Sexual Orientation Straight 05/21/2022 1: 57 PM CDT documented as of this encounter Miscellaneous Notes * Cerner Conversion Note - Jodie ProviderMD - 12/28/2018 11:46 AM MANAGER CUSTOMER Patient Education Materials Follows: Dietary Guidelines to [...] Rhubarb. ? Beets. ? Potato chips and gabonese fries. ? Nuts. ??? If you regularly take a diuretic medicine, make sure to eat at least 1?2 fruits or vegetables high in potassium each day. These include: ? Avocado. ? Banana. ? [place], prune, carrot, or tomato juice. ? Baked [...] Casseroles. Pizza. Lasagna. Frozen meals. Potato chips. Ghanaian fries. Summary ??? You can reduce your [...] 05/30/2011 Document Revised: 01/13/2017 Document Reviewed: 01/13/2017 [employer] Interactive Patient Education ? 2019 [employer]. Urology Dietary Guidelines to Help Prevent Kidney [...] Rhubarb. ? Beets. ? Potato chips and gabonese fries. ? Nuts. ??? If you regularly take a diuretic medicine, make sure to eat at least 1?2 fruits or vegetables high in potassium each day. These include: ? Avocado. ? Banana. ? [place], prune, carrot, or tomato juice. ? Baked [...] Casseroles. Pizza. Lasagna. Frozen meals. Potato chips. Ghanaian fries. Summary ??? You can reduce your [...] 05/30/2011 Document Revised: 01/13/2017 Document Reviewed: 01/13/2017 [employer] Interactive Patient Education ? 2019 [employer] Kidney Stones Kidney stones (urolithiasis) are [...] kidney stones in the future. ??? Take nmeq-roa-iapxlhu and prescription medicines only as told by [...] 02/02/2006 Document Revised: 07/16/2017 Document Reviewed: 07/18/2016 [employer] Interactive Patient Education ? 2019 [employer] documented in this encounter Plan of Treatment Not on file documented as of this encounter Visit Diagnoses Not on filedocumented in this encounter Care Teams National Business Director Relationship Specialty Start Date End Date Emily Estrada [address] [facility] [address] [place] [address] PCP - General 05/14/22 06/09/[address] [facility], Provider Not In The System, [place] [address] PCP - General 07/18/24 Lolita Belcher [address] [facility], [address] [place] [address] Advanced Registered Nurse Practitioner Primary Care 06/10/24 documented as of this encounter
--- OUTSIDE RECORDS SUMMARY | 2024-09-05 11:15 | XMS_ITS | Encounter Summary ---
Author Organization [employer] ([place], [place], [place], [place]) Address [address] [place] [address] Care Team Providers Care Medical Lead Name Role Phone Emily Estrada Primary Care Provider Unavail able [facility], Provider Not In The System Primary Care Provider Unavailable Encounter Details Date Type Department Care Team (Late st Contact Info) Description 12/28/2018 Transcribed Document [facility] [place] [address] [place] [address] ProviderJodie MD [address] [place] [address] Social History Tobacco Use Types Packs/Day Years Used Date Smoking Tobacco: Never Assessed Sex and Gender Information Value Date Recorded Sex Assigned at Not on file Legal Sex Male 4:10 PM CDT Gender Identity Not on file Sexual Orientation Straight 05/21/2022 1: 57 PM CDT documented as of this encounter Miscellaneous Notes * Cerner Conversion Note - Jodie ProviderMD - 12/28/2018 7:58 AM CRM MARKETING EXECUTIVE Consult Phone Call Documentation Entered On: 12/28/2018 [...] EST FELIPE CAMPO - 12/28/2018 10:19 EST Electronically signed by Jane, [facility] Conversion Information Management Manager Cerner at 06/03/2022 10:44 PM CDT documented in this encounter Plan of Treatment Not on file documented as of this encounter Visit Diagnoses Not on filedocumented in this encounter Care Teams Medical Lead Relationship Specialty Start Date End Date Emily Estrada [address] [place] [address] [place] [address] PCP - General 05/14/22 06/09/24 [facility], Provider Not In The System, [place] [address] PCP - General 07/18/24 Lolita Belcher [address] [facility], [address] [place] [address] Advanced Registered Nurse Practitioner Primary Care 06/10/24 documented as of this encounter
--- OUTSIDE RECORDS SUMMARY | 2024-09-05 11:15 | XMS_ITS | Encounter Summary ---
Author Organization [employer] ([place], [place], [place], [place]) Address [address] [place] [address] Care Team Providers Care Iron Bender Name Role Phone Emily Estrada Primary Care Provider Unavail able [facility], Provider Not In The System Primary Care Provider Unavailable Encounter Details Date Type Department Care Team (Late st Contact Info) Description 06/19/2021 Transcribed Document [facility] Radiology [address] [place] [address] Juhi Garcia MD [address] [facility] [address] [place] [address] Social History Tobacco Use Types Packs/Day Years Used Date Smoking Tobacco: Never Assessed Utilities Answer Date Recorded In the past [...] your living situation today? I have a [facility] place to live 06/08/2024 Think about [...] speak a language other than Guatemalan at [facility]? No 06/08/2024 Do you want [...] Orientation Straight 05/21/2022 1: 57 PM CDT COVID-19 Exposure Response Date Recorded In the last 10 days, have yo u been in contact with someone who was confirmed or suspected to have Coronavirus/COVID-19? No / Unsure 05/14/2022 10:03 PM EDT documented as of this encounter Miscellaneous Notes * Cerner Conversion Note - Juhi Garcia MD - 06/19/2021 5:45 PM EDT Patient: TAY THOMAS Age: 65 Years Sex: Male : 1955 Admit Date 06/18/2021 11:35 Discharge Date 06/19/2021 15:59 Primary Care Provider DESIREE LEE MD-[facility] Discharge Diagnosis Renal colic intrarenal stones bilaterally w/o hydro CAD HTN Hx thyroid cancer s/p partial removal Osteoarthritis Fatty liver Studies Radiology Results (Last 48 hours) [id number] -- 06/18/2021 11:35 CT Abdomen Pelvis WO [...] is normal and UA clear of infection, ED-ENGINEER BYPRODUCT spoke to his urologist Dr. Lepe who [...] on filedocumented in this encounter Care Teams Iron Bender Relationship Specialty Start Date End Date Emily Estrada [address] [address] PCP - General 05/14/22 06/09/24 [facility], Provider Not In The System, [place] [address] PCP - General 07/18/24 Lolita Belcher [address] [facility], [address] [place] [address] Advanced Registered Nurse Practitioner Primary Care 06/10/24 documented as of this encounter
--- OUTSIDE RECORDS SUMMARY | 2024-09-05 11:15 | XMS_ITS | Encounter Summary ---
Author Organization [employer] ([place], [place], [place], [place]) Address [address] [place] [address] Care Team Providers Care Grand Jury Deputy Sheriff Name Role Phone Emily Estrada Primary Care Provider Unavail able [facility], Provider Not In The System Primary Care Provider Unavailable Encounter Details Date Type Department Care Team (Late st Contact Info) Description 12/28/2018 Transcribed Document [facility] [place] Family Medicine [address] [place] [address] ProviderJodie MD [address] [place] [address] Social History Tobacco Use Types Packs/Day Years Used Date Smoking Tobacco: Never Assessed Sex and Gender Information Value Date Recorded Sex Assigned at Not on file Legal Sex Male 4:10 PM CDT Gender Identity Not on file Sexual Orientation Straight 05/21/2022 1: 57 PM CDT documented as of this encounter Miscellaneous Notes * Cerner Conversion Note - Jodie ProviderMD - 12/28/2018 11:44 AM SEAMAN Nursing Discharge Summary Entered On: 12/28/2018 11:45 EST Performed On: 12/28/2018 11:44 EST by Maricarmen Montenegro RN Discharge Documentation Discharge Date/Time : 12/28/2018 11:44 EST Patient Disposition, General : Discharge Discharge To : Home with ambulatory/outpatient follow-up Mode Of Departure, General Discharge : Private vehicle Accompanied By, Discharge : Friend IV Discontinued : Yes Medications Given to Patient : No Personal Belongings With Patient : Yes Pt's Own Supply of Medications Returned : No Prescriptions Given to Patient : Maricarmen Mondragon, RN - 12/28/2018 11:44 EST Electronically signed by Jane, [facility] Conversion Psychiatric Secretary Cerner at 06/03/2022 10:40 PM CDT documented in this encounter Plan of Treatment Not on file documented as of this encounter Visit Diagnoses Not on filedocumented in this encounter Care Teams Grand Jury Deputy Sheriff Relationship Specialty Start Date End Date Emily Estrada [address] [facility] [address] [place] [address] PCP - General 05/14/22 06/09/24 [facility], Provider Not In The System, [place] [address] PCP - General 07/18/24 Lolita Belcher [address] [facility], [address] [place] [address] Advanced Registered Nurse Practitioner Primary Care 06/10/24 documented as of this encounter
--- OUTSIDE RECORDS SUMMARY | 2024-09-05 11:15 | XMS_ITS | Continuity of Care Document ---
Author Organization [facility] Clinniko [facility] Address [address] [place] [address] Care Team Providers Care Building Coordinator Name Role Phone DESIREE LEE Primary Care [...] of seeking emergency care if condition worsens. [email or web address] Not available 07/12/2024 20:00:51 Plan of Treatment Reminders Order Date Submit Date Provider Last Modified By Organization Details Last Modified Time Details Appointments RECHECK 2024 02:45P M DEVIN PUENTE PA-C Not available Not available Not available Lab urinalysi s panel, auto 2024 025 [email or web address] 4 [facility], [address], [address], [place], [address], 07/12/2024 14:16:00 culture, urine 2024 025 [facility], [address] [place] [address], [phone], 07/13/2024 14:38:02 CBC w/ auto diff 2024 [facility], [address] [place] [address], [id number], 07/12/2024 18:57:35 BMP, serum or plasma 2024 [facility], [address] [place] [address], [phone], 07/12/2024 19:16:21 Referral None recorded. Procedures None recorded. Surgeries None recorded. Imaging CT, abdomen + pelvis, w/o contrast 2024 [facility], [address] [place] [address], [phone], 07/12/2024 15:03:06 Medication Orders ceftriaxo ne 1 gram solution for injection 2024 [email or web address] 4 [facility]ly [facility], 1928[address], [address] [place] [address], [id number], 07/12/2024 16:27:48 Patient TargetsNo targets recorded. Patient Instructions Encounter Date Encounter Id Patient Instructions Last Modified By Organization Details Last Modified Time 07/12/2024 [id number] - Take prescribe d antibiotics as directed. [...] the need for quick escalation if necessary. [email or web address] Not available 07/12/2024 19:57:57 Reason for Referral None Reported. Results Created Date Observation Date Name Description Value Unit Range Abnormal Flag Note LastModifiedBy Organization Detail LastModifiedTime 07/13/19 25 07/12/2024 urina lysis panel , auto Unknown Analyte Clean Catch Not Available [facility] [address] [place] [address] [address], [place], [address], 07/12/2024 13:57:15 07/13/19 25 07/12/2024 urina lysis panel , auto Unknown Analyte [place] Not Available [facility] [address], [place], [address], 07/12/2024 13:57:15 07/13/19 25 07/12/2024 urina lysis panel , auto Unknown Analyte Clear Not Available [facility] [address], [place], [address], 07/12/2024 13:57:15 07/13/19 25 07/12/2024 urina lysis panel , auto Unknown Analyte 1.025 Not Available [facility] [address], [place], [address], 07/12/2024 13:57:15 07/13/19 25 07/12/2024 urina lysis panel , auto Unknown Analyte 1.003 - 1.030 Not Available [facility] [address], [place], [address], 07/12/2024 13:57:15 07/13/19 25 07/12/2024 urina lysis panel , auto Unknown Analyte 5.0 Not Available [facility] [place] [address], [place], [address], 07/12/2024 13:57:15 07/13/19 25 07/12/2024 urina lysis panel , auto Unknown Analyte 5.0 - 8.0 Not Available [facility] [address], [place], [address], 07/12/2024 13:57:15 07/13/19 25 07/12/2024 urina lysis panel , auto Unknown Analyte 25 Elvia/uL Not Available [facility] [address], [place], [address], 07/12/2024 13:57:15 07/13/19 25 07/12/2024 urina lysis panel , auto Unknown Analyte Negati ve Not Available [facility] [address] [facility] [address], [place], [address], 07/12/2024 13:57:15 07/13/19 25 07/12/2024 urina lysis panel , auto Unknown Analyte POSITI VE (Abnor mal) Not Available [facility] [address] [place] [address] [address], [place], [address], 07/12/2024 13:57:15 07/13/19 25 07/12/2024 urina lysis panel , auto Unknown Analyte Negati ve Not Available [facility] [address], [place], [address], 07/12/2024 13:57:15 07/13/19 25 07/12/2024 urina lysis panel , auto Unknown Analyte 30 mg/dL Not Available [facility] [address], [place], [address], 07/12/2024 13:57:15 07/13/19 25 07/12/2024 urina lysis panel , auto Unknown Analyte Negati ve Not Available [facility] [address], [place], [address], 07/12/2024 13:57:15 07/13/19 25 07/12/2024 urina lysis panel , auto Unknown Analyte Normal Not Available [facility] [address], [place], [address], 07/12/2024 13:57:15 07/13/19 25 07/12/2024 urina lysis panel , auto Unknown Analyte Normal Not Available [facility] [address], [place], [address], 07/12/2024 13:57:15 07/13/19 25 07/12/2024 urina lysis panel , auto Unknown Analyte Negati ve Not Available [facility] [address], [place], [address], 07/12/2024 13:57:15 07/13/19 25 07/12/2024 urina lysis panel , auto Unknown Analyte Negati ve Not Available [facility] [address], [place], [address], 07/12/2024 13:57:15 07/13/19 25 07/12/2024 urina lysis panel , auto Unknown Analyte 4 mg/dL Not Available [facility] [address] [place] [address] [address], [place], [address], 07/12/2024 13:57:15 07/13/19 25 07/12/2024 urina lysis panel , auto Unknown Analyte Normal Not Available [facility] [address], [place], [address], 07/12/2024 13:57:15 07/13/19 25 07/12/2024 urina lysis panel , auto Unknown Analyte 1 mg/dL Not Available [facility] [address], [place], [address], 07/12/2024 13:57:15 07/13/19 25 07/12/2024 urina lysis panel , auto Unknown Analyte Negati ve Not Available [facility] [address], [place], [address], 07/12/2024 13:57:15 07/13/19 25 07/12/2024 urina lysis panel , auto Unknown Analyte 50 Sera/uL Not Available [facility] [address], [place], [address], 07/12/2024 13:57:15 07/13/19 25 07/12/2024 urina lysis panel , auto Unknown Analyte Negati ve Not Available [facility] [address], [place], [address], 07/12/2024 13:57:15 07/13/19 25 07/12/2024 XR, abdom en, 1 view No observ ation record ed. [email or web address] Not Available 06/17 20:13:39 07/13/19 07/12/2024 CT, abdom en + pelvi s, w/o contr ast Radha s[facility] [address] [place] [address] Patien t Name: TAY THOMAS Patien t [...] By: Ward Trejo MD on 2:[address] Radiology [facility] [address] [place] [address], [address], 07/13/2024 18:43:42 Result Notes Documentation Provider Name and Address Organization Details Recorded Time Ct, Abdomen + Pelvis, W/o Contrast : [facility] [address] [place] [address] Patient Name: TAY THOMAS Patient : 1955 [...] Interpreted By: Ward Trejo MD LEPE MD [address] [place] [address], [address], [facility] 07/13/2024 18:43:42 Problems No Known Problems Procedures Surgical History Date Name Laterality Status Provider Name and Address Organization Details Recorded Time 07/13/19 Post Void Residual; Ultrasound completed Joy Lama [facility] 07/12/2024 13:54:08 04/11/19 25 Biopsy Skin Lesion; Tangential completed Holland Candelaria [facility] 04/11/2024 14:41:10 04/11/19 25 Injection, Intralesional completed DUGLAS BASURTO MD [address] [place], [address], [facility] 04/11/2024 18:30:27 04/11/19 25 Destruction Premalignant Lesion(s) completed Holland Richardsdaysi [facility] 04/11/2024 14:44:27 01/29/20 23 Lumbar Epidural Steroid Injection - Parth completed PERI CANTOR MD [address] [place], [address], [facility] 01/28/2023 14:14:59 09/10/19 23 Cervical MBB 2 level - Parth completed PERI CANTOR MD [address] [place], [address], [facility] 09/09/2022 16:11:18 08/16/19 23 Cervical MBB 2 level - Parth completed PERI CANTOR MD [address] [place], [address], [facility] 08/15/2022 15:23:46 05/04/19 23 Back Surgery completed Alana Streeter [facility] 07/16/2022 08:57:41 04/30/19 18 Shave Lesion; trunk, arm, leg completed MARIA DEL ROSARIO ODOM MD [address] [place], [address], [facility] 04/30/2017 22:32:02 04/30/19 18 Destruction BN Lesions completed Aylin Toussaint [facility] 04/29/2017 08:43:13 Orthopedic Surgery completed Balta Pérez [facility] 11/03/2016 13:55:36 Imaging Results None recorded. Procedure Notes None recorded. Medical Equipment None Reported. Allergies Allergen ID Allergen Name Allergen Category Reaction Reaction Severity Criticality Documentation Date Start Date Code Code System Note Provider Name and Address Organization Details Recorded Time 852482 lisinopri l medicatio n facial swelling Not available Not available 07/16/2022 46725 RxNorm Alana Streeter [facility] 3 08:45:16 Medications Name Sig Start [...] 100 mg capsule 100 mg twice a day. active Not Available Not Available No t Available gabapenti n 300 mg capsule Take [...] completed Not Available Not Available Not Available [facility] Metoprolo l Tartrate 100 mg tablet [...] Updated DateTime 07/12/2024 185.42 cm 29 kg/m2 16801.32 g Joy aLma [facility] 07/12/2024 13:49:16 Social History Question Answer Notes LastModified by Organizat ion Details LastModified Time Tobacco Smoking Status Current [facility] 13:55:22 How Much Tobacco Do You Chew? None [email or web address] Information not available 07/30/2020 Marital Status [email or web address] Informatio n not available 07/30/2020 What Was The Date Of Your Most Recent Tobacco Screening? 07/26/2024 [email or web address] Information not available 07/26/2024 How Much Tobacco Do You Smoke? No [email or web address] Information not available 07/16/2022 Sex: Male Functional Status Question Answer Note LastModified by Organizat ion Details LastModified Time Do you or have you ever used any other forms of tobacco or nicotine? No [email or web address] Information not available 07/16/2022 What is your level of alcohol consumption? Occasional [email or web address] Information not available 07/30/2020 Are you currently employed? No [email or web address] Information not available 07/16/2022 Do you or have you ever used e-cigarettes or vape? Never used electronic cigarettes Information not available 07/30/2020 What is your exercise level? Heavy [email or web address] Information not available 07/16/2022 Mental Status None recorded. Family History Relationship Description Onset Age of this Age Resolved Age Notes LastModified by Organization Details LastModified Time Father Heart disease [email or web address] Not available 07/16 08:46:24 Brother Heart disease [email or web address] Not available 07/16 08:46:24 Paternal Grandfather Heart [...] SNOMED-CT Code Diagnosis ICD10 Code Diagnosis Note [id number] DEVIN PUENTE PA-C [facility] [address] [place] [address] 07/12/2024 13:17:09 07/12/2024 14:30:00 Urolithiasis 10412477 N20.9 History of Disorder 3128 05218 Z87.898 Recurrent urinary tract infection 523622731 N39.0 Recurrent kidney stone 7042572246 992288 N20.0 Chill 84183671 R68.83 Flank pain 237221505 R10 .9 Z87.442 Kidney stone 62915851 N2 0.0 Acute urin ermelinda tract infection 379951253 N39.0 Health Concerns Section Related Observation LastModified by Organization Detai ls LastModified Time None Recorded Concern Status LastModified by Organization Details LastModified Time None Recorded Payers Encounter Date Sequence Insurance Name Policy Number Policy Huang Covered Member ID Huang Member ID Guarantor Name 07/12/2024 1 [place] Tay Herrmann Marcellus [id number] Tay Herrmann Marcellus 07/12/2024 2 [employer] (MEDICARE SUPPLEMENT) Tay Herrmann Marcellus [id number] Tay Thomas Notes Date Note Type Note [...] radiologist reading pending. DEVIN PUENTE PA-C [address] [place], [address], [facility] 07/12/2024 20:02:52
--- OUTSIDE RECORDS SUMMARY | 2024-09-05 11:16 | XMS_ITS | Continuity of Care Document ---
Author Organization [facility] Douglas aparicio [facility] Address [address] [facility] [facility] [address] [place] [address] Care Team Providers Care House Cleaner Name Role Phone DESIREE LEE Primary Care [...] month for further evaluation and management refinement. [email or web address] Not available 07/26/2024 13:02:15 Plan of Treatment Reminders Order Date Submit Date Provider Last Modified By Organization Details Last Modified Time Details Appointments RECHECK 2024 02:45P M DEVIN PUENTE PA-C Not available Not available Not available Lab kidney stone analysis 2024 025 [facility], [address] [place] [address], [address], 07/29/2024 01:34:07 PTH (parathyr oid hormone), intact + calcium, serum or plasma 2024 025 [facility], [address] [place], [address], 07/26/2024 15:04:10 unlisted lab - urology custom panel 2024 025 [facility], [address] [place], [address], 07/26/2024 15:10:06 urinalysi s panel, auto 2024 025 4 [facility], [address] [place] [address], [facility] [address], [place], [address], 07/26/2024 09:19:12 Referral None recorded. Procedures None recorded. Surgeries None recorded. Imaging None recorded. Medication Orders tamsulosi n 0.4 mg capsule 2024 025 [facility], [address] [place] [address], [id number], 08/08/2024 11:31:37 Patient TargetsNo targets recorded. Patient Instructions Encounter Date Encounter Id Patient Instructions Last Modified By Organization Details Last Modified Time 07/26/2024 [id number] - Continue takin g Tamsulosin as prescribed. [...] auto Unknown Analyte Clean Catch Not Available [facility] [address], [place], [address], 07/26/2024 09:12:37 07/27/19 25 07/26/2024 urina lysis panel , auto Unknown Analyte Straw Not Available [facility] [address], [place], [address], 07/26/2024 09:12:37 07/27/19 25 07/26/2024 urina lysis panel , auto Unknown Analyte Clear Not Available [facility] [address], [place], [address], 07/26/2024 09:12:37 07/27/19 25 07/26/2024 urina lysis panel , auto Unknown Analyte 1.025 Not Available [facility] [address], [place], [address], 07/26/2024 09:12:37 07/27/19 25 07/26/2024 urina lysis panel , auto Unknown Analyte 1.003 - 1.030 Not Available [facility] [address], [place], [address], 07/26/2024 09:12:37 07/27/19 25 07/26/2024 urina lysis panel , auto Unknown Analyte 5.0 Not Available [facility] [address], [place], [address], 07/26/2024 09:12:37 07/27/19 25 07/26/2024 urina lysis panel , auto Unknown Analyte 5.0 - 8.0 Not Available [facility] [address], [place], [address], 07/26/2024 09:12:37 07/27/19 25 07/26/2024 urina lysis panel , auto Unknown Analyte Negati ve Not Available [facility] [address], [place], [address], 07/26/2024 09:12:37 07/27/19 25 07/26/2024 urina lysis panel , auto Unknown Analyte Negati ve Not Available [facility] [address], [place], [address], 07/26/2024 09:12:37 07/27/1907/26/2024 urina lysis panel , auto Unknown Analyte Negati ve Not Available [facility] [address], [place], [address], 07/26/2024 09:12:37 07/27/19 25 07/26/2024 urina lysis panel , auto Unknown Analyte Negati ve Not Available [facility] [address], [place], [address], 07/26/2024 09:12:37 07/27/19 25 07/26/2024 urina lysis panel , auto Unknown Analyte Negati ve Not Available [facility] [address], [place], [address], 07/26/2024 09:12:37 07/27/1907/26/2024 urina lysis panel , auto Unknown Analyte Negati ve Not Available [facility] [address], [place], [address], 07/26/2024 09:12:37 07/27/1907/26/2024 urina lysis panel , auto Unknown Analyte Normal Not Available [facility] [address], [place], [address], 07/26/2024 09:12:37 07/27/1907/26/2024 urina lysis panel , auto Unknown Analyte Normal Not Available [facility] [address], [place], [address], 07/26/2024 09:12:37 07/27/1907/26/2024 urina lysis panel , auto Unknown Analyte Negati ve Not Available [facility] [address], [place], [address], 07/26/2024 09:12:37 07/27/1907/26/2024 urina lysis panel , auto Unknown Analyte Negati ve Not Available [facility] [address], [place], [address], 07/26/2024 09:12:37 07/27/1907/26/2024 urina lysis panel , auto Unknown Analyte 1 mg/dL Not Available [facility] [address], [place], [address], 07/26/2024 09:12:37 07/27/1907/26/2024 urina lysis panel , auto Unknown Analyte Normal Not Available [facility] [address], [place], [address], 07/26/2024 09:12:37 07/27/1907/26/2024 urina lysis panel , auto Unknown Analyte Negati ve Not Available [facility] [address], [place], [address], 07/26/2024 09:12:37 07/27/1907/26/2024 urina lysis panel , auto Unknown Analyte Negati ve Not Available [facility] [address], [place], [address], 07/26/2024 09:12:37 07/27/1907/26/2024 urina lysis panel , auto Unknown Analyte Negati ve Not Available [facility] [address], [place], [address], 07/26/2024 09:12:37 07/27/1907/26/2024 urina lysis panel , auto Unknown Analyte Negati ve Not Available [facility] [address], [place], [address], 07/26/2024 09:12:37 07/13/1907/12/2024 XR, abdom en, 1 view No observ ation record ed. [email or web address] Not Available 06/17 20:13:39 07/13/1907/12/2024 CT, abdom en + pelvi s, w/o contr ast [facility] [address] [place] [address] [place] [address] Patien t Name: TAY THOMAS Patien t [...] Ward Trejo MD on 025 2:57 PM [email or web address] [facility] [address] [place], [address], 07/13/2024 18:43:42 Result Notes None recorded. Problems No Known Problems Procedures Surgical History Date Name Laterality Status Provider Name and Address Organization Details Recorded Time 07/13/19 Post Void Residual; Ultrasound completed Joy Stone [facility] 07/12/2024 13:54:08 04/11/19 25 Biopsy Skin Lesion; Tangential completed [facility] 04/11/2024 14:41:10 04/11/19 25 Injection, [place] [address] [place] [address], [address], [facility] 04/11/2024 18:30:27 04/11/19 25 Destruction Premalignant Lesion(s) completed [facility] 04/11/2024 14:44:27 01/29/20 23 Lumbar Epidural Steroid Injection - Parth completed PERI CANTOR MD [facility] [place], [address], [facility] 01/28/2023 14:14:59 09/10/19 23 Cervical MBB 2 level - Parth completed PERI CANTOR MD [facility] [place], [address], [facility] 09/09/2022 16:11:18 08/16/19 23 Cervical MBB 2 level - Parth completed PERI CANTOR MD [address] [place], [address], [facility] 08/15/2022 15:23:46 05/04/19 23 Back Surgery completed Alana Streeter [facility] 07/16/2022 08:57:41 04/30/19 18 Shave Lesion; trunk, arm, leg completed MARIA DEL ROSARIO ODOM MD [address] [place] [address], [address], [facility] 04/30/2017 22:32:02 04/30/19 18 Destruction BN Lesions completed Aylin Toussaint [facility] 04/29/2017 08:43:13 Orthopedic Surgery completed Balta Pérez [facility] 11/03/2016 13:55:36 Imaging Results None recorded. Procedure Notes None recorded. Medical Equipment None Reported. Allergies Allergen ID Allergen Name Allergen Category Reaction Reaction Severity Criticality Documentation Date Start Date Code Code System Note Provider Name and Address Organization Details Recorded Time 307996 lisinopri l medicatio n facial swelling Not available Not available 07/16/2022 84953 RxNorm [facility] 08:[facility]16 Medications Name Sig Start [...] completed Not Available Not Available Not Available [facility] Metoprolo l Tartrate 100 mg [...] Updated DateTime 07/26/2024 185.42 cm 29 kg/m2 27405.32 g Betsy Lee [facility] 07/26/2024 08:49:59 Social History Question Answer Notes LastModified by Organizat ion Details LastModified Time Tobacco Smoking Status Current Some Day [facility] 11/03/2016 13:55:22 How Much Tobacco Do You Chew? None [email or web address] Information not available 07/30/2020 Marital Status Informatio n not available 07/30/2020 What Was The Date Of Your Most Recent Tobacco Screening? 07/26/2024 [email or web address] Information not available 07/26/2024 How Much Tobacco Do You Smoke? No Information not available 07/16/2022 Sex: Male Functional Status Question Answer Note LastModified by Organizat ion Details LastModified Time Do you or have you ever used any other forms of tobacco or nicotine? No Information not available 07/16/2022 What is your level of alcohol consumption? Occasional [email or web address] Information not available 07/30/2020 Are you currently employed? No [email or web address] Information not available 07/16/2022 Do you or have you ever used e-cigarettes or vape? Never used electronic cigarettes Information not available 07/30/2020 What is your exercise level? Heavy [email or web address] Information not available 07/16/2022 Mental Status None recorded. Family History Relationship Description Onset Age of this Age Resolved Age Notes LastModified by Organization Details LastModified Time Father Heart disease [email or web address] Not available 07/16 08:46:24 Brother Heart disease [email or web address] Not available 07/16 08:46:24 Paternal Grandfather Heart disease [email or web address] Not available 07/16 08:46:35 Medical History Condition [...] N Immune System Disorder N Heart Attack (DC) Y Other Skin Condition N Mental Illness [...] SNOMED-CT Code Diagnosis ICD10 Code Diagnosis Note [id number] JAIME THOMAS [facility] [address] [place] [address] 07/12/2024 13:17:09 07/12/2024 14:30:00 Urolithiasis 28170279 N20.9 History of Disorder 3128 13255 Z87.898 Recurrent urinary tract infection 809857026 N39.0 Recurrent kidney stone 0087843476 658941 N20.0 Chill 58485426 R68.83 Flank pain 754013207 R10 .9 Z87.442 Kidney stone 49865524 N2 0.0 Acute urin ermelinda tract infection 669315773 N39.0 [id number] JAIME THOMAS [facility] [address] [place] [address] 07/26/2024 08:34:35 07/26/2024 09:22:25 Urolithiasis 15945426 N20.9 Flank pain 107797561 R10 .9 Z87.442 History of Disorder 3128 94321 Z87.898 Recurrent urinary tract infection 564404722 N39.0 Recurrent kidney stone 8329069784 143779 N20.0 Kidney stone 94447550 N2 0.0 Acute urin ermelinda tract infection 751110194 N39.0 Health Concerns Section Related Observation LastModified by Organization Detai ls LastModified Time None Recorded Concern Status LastModified by Organization Details LastModified Time None Recorded Payers Encounter Date Sequence Insurance Name Policy Number Policy Huang Covered Member ID Huang Member ID Guarantor Name 07/26/2024 1 [place] Tay Thomas [id number] Tay Thomas 07/26/2024 2 AARP (MEDICARE SUPPLEMENT) Tay Thomas [id number] Tay Thomas Notes Date Note Type Note [...] is producing/passing stones. DEVIN PUENTE PA-C [address] [place], [address], [facility] 07/26/2024 13:03:01
--- OUTSIDE RECORDS SUMMARY | 2024-09-05 11:16 | XMS_ITS | Encounter Summary ---
Author Organization [employer] ([place], [place], [place], [place]) Address [address] [place] [address] Care Team Providers Care Accounting Reconciliation Clerk Name Role Phone Emily Estrada Primary Care Provider Unavail able [facility], Provider Not In The System Primary Care Provider Unavailable Encounter Details Date Type Department Care Team (Late st Contact Info) Description 06/18/2021 Transcribed Document [facility] Family Medicine [address] [place] [address] ProviderJodie MD [address] [place] [address] Social History Tobacco Use Types Packs/Day Years [...] Do you speak a language other than [place] at [facility]? No 06/08/2024 Do you want [...] Notes * Cerner Conversion Note - Historical Provider, - 06/18/2021 5:00 PM CDT Chart Check - Review Order Profile Entered On: 06/18/2021 19:08 EDT Performed On: 06/18/2021 17:00 EDT by Desiree Cuevas LPN Chart Check Powerplans Initiated/Discontinued as Appropriate : Yes All Active Orders Reviewed : Yes Desiree Cuevas LPN - 06/18/2021 19:08 EDT Electronically signed by Jane [facility] Conversion Checker/Stocker Cerner at 06/03/2022 10:35 PM CDT documented in this encounter Plan of Treatment Not on file documented as of this encounter Visit Diagnoses Not on filedocumented in this encounter Care Teams Accounting Reconciliation Clerk Relationship Specialty Start Date End Date Emily Estrada [address] [place] [address] PCP - General 05/14/22 06/09/24 [facility], Provider Not In The System, [place] [address] PCP - General 07/18/24 Lolita Belcher [address], [address] [place] [address] Advanced Registered Nurse Practitioner Primary Care 06/10/24 documented as of this encounter
--- OUTSIDE RECORDS SUMMARY | 2024-09-05 11:16 | XMS_ITS | Encounter Summary ---
Author Organization [employer] ([place], [place], [place], [place]) Address [address] [place] [address] Care Team Providers Care Director Of Dementia Operations Name Role Phone Emily Estrada Primary Care Provider Unavail able [facility], Provider Not In The System Primary Care Provider Unavailable Encounter Details Date Type Department Care Team (Late st Contact Info) Description 06/19/[address] [facility] [place] [address] [place] [address] ProviderJodie MD [address] [place] [address] Social History Tobacco Use Types [...] Do you speak a language other than [place] at [facility]? No 06/08/2024 [...] Cerner Conversion Note - Historical Provider, - 06/19/2021 12:41 PM CDT UM Authorization Entered On: 06/19/2021 12:41 EDT Performed On: 06/19/2021 12:41 EDT by JULIAN ADAMSON RN Primary Insurance Authorization Authorization and Policy Numbers : Insurance 1 Health Plan: MEDICARE Policy Number: [id number] Authorization Number: Insurance 2 Health Plan: AARP N Policy Number: [id number] Authorization Number: Insurance Primary Name : MEDICARE Policy Number: [id number] Authorized Service Begin Date-Primary : 06/18/2021 EDT Historical Authorization Comments-Primary : No Authorization Comments Found JUILAN ADAMSON, MATIAS - 06/19/2021 12:41 EDT documented in this encounter Plan of Treatment Not on file documented as of this encounter Visit Diagnoses Not on filedocumented in this encounter Care Teams Director Of Dementia Operations Relationship Specialty Start Date End Date Emily Estrada [address] [place] [address] PCP - General 05/14/22 06/09/24 [facility], Provider Not In The System, [place] [address] PCP - General 07/18/24 Lolita Belcher [address] [place] [address] [place] [address], [address] [place] [address] Advanced Registered Nurse Practitioner Primary Care 06/10/24 documented as of this encounter
--- OUTSIDE RECORDS SUMMARY | 2024-09-05 11:16 | XMS_ITS | Encounter Summary ---
Author Organization [employer] ([place], [place], [place], [place]) Address [address] [place] [address] Care Team Providers Care Vegetable Farm Manager Name Role Phone Emily Estrada Primary Care Provider Unavail able [facility], Provider Not In The System Primary Care Provider Unavailable Encounter Details Date Type Department Care Team (Late st Contact Info) Description 06/19/2021 Transcribed Document [facility] [place] [address] [place] [address] ProviderJodie MD [address] [place] [address] Social History Tobacco Use Types [...] Do you speak a language other than [place] at [facility]? No 06/08/2024 Do you want help with [...] Conversion Note - Historical Provider, - 06/19/2021 2:29 PM CDT Stroke/Warfarin Instructions Entered On: 06/19/2021 14:29 EDT Performed On: 06/19/2021 14:29 EDT by Maricarmen Dominguez RN-[employer] Stroke/Warfarin Instructions Stroke/TIA Discharge Ins : N/A Warfarin Discharge Ins : N/A Maricarmen Dominguez RN-[employer] - 06/19/2021 14:29 EDT Education Topics: Anticoagulant Education Anticoagulant : Anticoagulant other than warfarin Compliance Issues *Q : Verbalizes understanding Diet *Q : Verbalizes understanding Adverse drug reactions/interactions *Q : Verbalizes understanding Action/Interaction with Other Drugs : Verbalizes understanding Follow-up care/monitoring *Q : Verbalizes understanding Follow-up Care Details : Physician's office/clinic Maricarmen Dominguez RN-[employer] - 06/19/2021 14:29 EDT documented in this encounter Plan of Treatment Not on file documented as of this encounter Visit Diagnoses Not on filedocumented in this encounter Care Teams Vegetable Farm Manager Relationship Specialty Start Date End Date Shay-Emily Dinero [address] [place] [address] [place] [address] PCP - General 05/14/22 06/09/24 [facility], Provider Not In The System, [place] [address] PCP - General 07/18/24 Lolita Belcher [address], [address] [address] Advanced Registered Nurse Practitioner Primary Care 06/10/24 documented as of this encounter
--- OUTSIDE RECORDS SUMMARY | 2024-09-05 11:16 | XMS_ITS | Encounter Summary ---
Author Organization [employer] ([place], [place], [place], [place]) Address [address] [place] [address] Care Team Providers Care Marble Worker Name Role Phone Emily Estrada Primary Care Provider Unavail able [facility], Provider Not In The System Primary Care Provider Unavailable Encounter Details Date Type Department Care Team (Late st Contact Info) Description 06/18/2021 Transcribed Document [facility] [place] [address] [place] [address] ProviderJodie MD [address] [place] [address] Social History Tobacco Use Types [...] Do you speak a language other than Australian at [facility]? No 06/08/2024 Do you want [...] Conversion Note - Historical Provider, - 06/18/2021 11:46 AM CDT Pain Assessment [...] on filedocumented in this encounter Care Teams Marble Worker Relationship Specialty Start Date End Date Shay-Emily Dinero [address] [place], [place] [address] [address] PCP - General 05/14/22 06/09/24 [facility], Provider Not In The System, [place] [address] PCP - General 07/18/24 Lolita Belcher [address] [place] [address] [place] [address], [address] [place] [id number] Advanced Registered Nurse Practitioner Primary Care 06/10/24 documented as of this encounter
--- OUTSIDE RECORDS SUMMARY | 2024-09-05 11:16 | XMS_ITS | Encounter Summary ---
Author Organization [employer] ([place], [place], [place], [place]) Address [address] [place] [address] Care Team Providers Care Trim Setter Helper Name Role Phone Emily Estrada Primary Care Provider Unavail able [facility], Provider Not In The System Primary Care Provider Unavailable Encounter Details Date Type Department Care Team (Late st Contact Info) Description 06/19/2021 Transcribed Document [facility] Family Medicine [address] [place] [address] ProviderJodie MD [address] [place] [address] Social History Tobacco Use Types [...] Do you speak a language other than [place]an at [facility]? No 06/08/2024 Do you want help [...] Conversion Note - Historical Provider, - 06/19/2021 8:51 AM CDT Patient Education [...] ? 8 oz (237 mL) of milk, yiwrwwk-lopylzpemvoj-ndazv milk, and calcium-fortifiedfruit juice. Calcium-fortified means that [...] Spinach (cooked), rhubarb, beets, sweet potatoes, and Haitian chard. ? Peanuts. ? Potato chips, malian fries, and baked potatoes with skin on. ? Nuts and nut products. ? Chocolate. ??? If you regularly take a diuretic medicine, make sure to eat at least 1 or 2 servings of fruits or vegetables that are high in potassium each day. These include: ? Avocado. ? Banana. ? [address], prune, carrot, or tomato juice. ? Baked [...] fish oil, or vitamin B6. ??? Take lukj-tbg-bvuulsi and prescription medicines only as told by [...] Casseroles. Pizza. Lasagna. Frozen meals. Potato chips. Bengali fries. The items listed above may not [...] provider. Document Revised: 01/26/2020 Document Reviewed: 01/26/2020 [employer] Patient Education ? 2020 [employer]. Urology Kidney Stones Kidney stones are rock-like [...] these instructions at home: Medicines ??? Take sqmd-pyd-cfkqgeb and prescription medicines only as told by [...] provider. Document Revised: 06/21/2019 Document Reviewed: 06/21/2019 Else[employer] Patient Education ? 2020 [employer] documented in this encounter Plan of Treatment Not on file documented as of this encounter Visit Diagnoses Not on filedocumented in this encounter Care Teams Trim Setter Helper Relationship Specialty Start Date End Date Emily Estrada [address] [place] [address] PCP - General 05/14/22 06/09/24 [facility], Provider Not In The System, [place] [address] PCP - General 07/18/24 Lolita Belcher [address], [address] [place] [id number] Advanced Registered Nurse Practitioner Primary Care 06/10/24 documented as of this encounter
--- OUTSIDE RECORDS SUMMARY | 2024-09-05 11:16 | XMS_ITS | Encounter Summary ---
Author Organization [email or web address] ([place], [place], [place], [place]) Address [address] [place] [address] Care Team Providers Care Protein Purification Scientist Name Role Phone Emily Estrada Primary Care Provider Unavail able [facility], Provider Not In The System Primary Care Provider Unavailable Encounter Details Date Type Department Care Team (Late st Contact Info) Description 06/19/2021 Transcribed Document [facility] [place] [address] [place] [address] ProviderJodie MD [address] [place] [address] Social History Tobacco Use Types [...] Do you speak a language other than Micronesian at [facility]? No 06/08/2024 Do you [...] Conversion Note - Historical Provider, - 06/19/2021 3:42 PM CDT Final Discharge Planning Entered On: 06/19/2021 15:42 EDT Performed On: 06/19/2021 15:42 EDT by YOCASTA GLASS, RN - Pick Up Attendant Final Discharge Planning Discharge Arrangements : Patient [...] : Yes Discharge To Care Management : Home/Residential/Half-Way or Self Care -01 YOCASTA GLASS, RN - Pick Up Attendant - 06/19/2021 15:42 EDT documented in this encounter Plan of Treatment Not on file documented as of this encounter Visit Diagnoses Not on filedocumented in this encounter Care Teams Protein Purification Scientist Relationship Specialty Start Date End Date Emily Estrada [address] [place] [phone] PCP - General 05/14/22 06/09/24 [facility], Provider Not In The System, [place] [address] PCP - General 07/18/24 Lolita Belcher [facility] [place] [address] [place] [address], [address] [place] [phone] Advanced Registered Nurse Practitioner Primary Care 06/10/24 documented as of this encounter
--- OUTSIDE RECORDS SUMMARY | 2024-09-05 11:16 | XMS_ITS | Encounter Summary ---
Author Organization [employer] ([place], [place], [place], [place]) Address [address] [place] [address] Care Team Providers Care Environmental Research Project Manager Name Role Phone Emily Estrada Primary Care Provider Unavail able [facility], Provider Not In The System Primary Care Provider Unavailable Encounter Details Date Type Department Care Team (Late st Contact Info) Description 06/18/2021 Transcribed Document [facility] [place] [address] [place] [address] ProviderJodie MD [address] [place] [address] Social History Tobacco Use Types [...] Do you speak a language other than North Korean at [facility]? No 06/08/2024 Do you want help with [...] Conversion Note - Historical Provider, - 06/18/2021 9:18 AM CDT Pain Assessment [...] on filedocumented in this encounter Care Teams Environmental Research Project Manager Relationship Specialty Start Date End Date Shay-Emily Dinero [address] [place] [address] [place] [phone] PCP - General 05/14/22 06/09/24 [facility], Provider Not In The System, [place] [address] PCP - General 07/18/24 Lolita Belcher [address] [place] [address], [address] [place] [address] Advanced Registered Nurse Practitioner Primary Care 06/10/24 documented as of this encounter
--- OUTSIDE RECORDS SUMMARY | 2024-09-05 11:16 | XMS_ITS | Encounter Summary ---
Author Organization [employer] ([place], [place], [place], [place]) Address [address] [place] [address] Care Team Providers Care Forgesmith Name Role Phone Emily Estrada Primary Care Provider Unavail able [facility], Provider Not In The System Primary Care Provider Unavailable Encounter Details Date Type Department Care Team (Late st Contact Info) Description 06/18/2021 Transcribed Document [facility] [place] [address] [place] [address] ProviderJodie MD [address] [place] [address] Social History Tobacco Use Types [...] Do you speak a language other than French at [facility]? No 06/08/2024 Do you want help [...] Conversion Note - Historical Provider, - 06/18/2021 2:01 PM CDT Pain Assessment Entered On: 06/19/2021 6:32 EDT Performed On: 06/19/2021 0:55 EDT by Melinda Donaldson RN Intervention Information: HYDROmorphone Performed by Melinda Donaldson RN on 06/19/2021 00:25:00 EDT HYDROmorphone,0.5mg IV Push,Right Antecubit [place],Pain (Severe 7-10) Pain Assessment Pain Scale Goal [...] on filedocumented in this encounter Care Teams Forgesmith Relationship Specialty Start Date End Date Emily Estrada [address] [address] [place] [address] PCP - General 05/14/22 06/09/24 [facility], Provider Not In The System, [place] [address] PCP - General 07/18/24 Lolita Belcher [address] [place] [address], [address] [place] [phone] Advanced Registered Nurse Practitioner Primary Care 06/10/24 documented as of this encounter
--- OUTSIDE RECORDS SUMMARY | 2024-09-05 11:16 | XMS_ITS | Encounter Summary ---
Author Organization [employer] ([place], [place], [place], [place]) Address [address] [place] [address] Care Team Providers Care Analysis Tester Name Role Phone Emily Estrada Primary Care Provider Unavail able [facility], Provider Not In The System Primary Care Provider Unavailable Encounter Details Date Type Department Care Team (Late st Contact Info) Description 06/18/2021 Transcribed Document [facility] Radiology [address] [place] [address] Juhi Garcia MD [address] [facility] [address] [place] [address] Social History Tobacco Use Types Packs/Day Years [...] Never 06/08/2024 How often does anyone, pedro simth family and friends, insult or talk down to you? Never 06/08/2024 How often does anyone, pedro smith family and friends, threaten you with harm? Never 06/08/2024 How often does anyone, pedro smith family and friends, scream or curse at you? Never 06/08/2024 Housing Stability Answer Date Recorded What is your living situation today? I have a [facility] place to live 06/08/2024 Think about [...] Do you speak a language other than Zambian at [facility]? No 06/08/2024 Do you want help [...] ed with c/o right flank pain. At [facility] yesterday and was told that he had [...] is normal and UA clear of infection, ED-COMMISSIONING EDITOR spoke to his urologist Dr. Young who [...] stents to pass; Dr. Young consulted by EDMD, will see pain control, NPO until eval by [facility] [place] 19 years ago reports recent normal echo and stress test; hold ASA pending possible procedure HTN continue home lisinopril 20mg bid Hx thyroid cancer s/p partial removal continue synthroid home dose Osteoarthritis avoid NSAIDS Fatty liver known elevated liver enzymes, can lead to cirrhosis advised to f/u with PCP Full Code his is his secondary decision maker Kelsie Thomas VTE Prophylaxis - Medical SCD Problem List/Past Medical History Ongoing Arthritis At risk for sleep apnea GERD Gout Hyperlipidemia Hypertension Myocardial infarction x2 Smoker - cigars Thyroid cancer Historical Kidney stone Procedure/Surgical History Lithotripsy (2018), Cholecystectomy (2017), Rotator cuff structure of right shoulder (2011), Thyroidectomy (2010), Cyst removal from right ankle, [...] Diagnostic Results Radiology Results (Last 48 hours) [id number] -- 06/18/2021 11:35 CT Abdomen Pelvis WO [...] Lymph # 1.75 x10(3)/uL 06/18/2021 08:45 EDT [place] % 11.5 % (High) 06/18/2021 08:45 EDT [place] # 0.94 K/uL 06/18/2021 08:45 EDT Eos [...] Appearance CLEAR2 06/18/2021 11:27 EDT Urine Specific Adams 1.011 06/18/2021 11:27 EDT Urine pH Dipstick [...] on filedocumented in this encounter Care Teams Analysis Tester Relationship Specialty Start Date End Date Emily Estrada [address] [place] [phone] PCP - General 05/14/22 06/09/24 [facility], Provider Not In The System, [place] [address] PCP - General 07/18/24 Lolita Belcher [address] [place] [address], [address] [address] Advanced Registered Nurse Practitioner Primary Care 06/10/24 documented as of this encounter
--- OUTSIDE RECORDS SUMMARY | 2024-09-05 11:16 | XMS_ITS | Encounter Summary ---
Author Organization [employer] ([place], [place], [place], [place]) Address [address] [place] [address] Care Team Providers Care Lawn Mower Name Role Phone Emily Estrada Primary Care Provider Unavail able [facility], Provider Not In The System Primary Care Provider Unavailable Encounter Details Date Type Department Care Team (Late st Contact Info) Description 06/19/2021 Transcribed Document [facility] [place] Family Medicine [address] [place] [address] ProviderJodie MD [address] [place] [address] Social History Tobacco Use Types [...] Do you speak a language other than Mosotho at [facility]? No 06/08/2024 Do you want [...] Conversion Note - Historical Provider, - 06/19/2021 1:11 PM CDT Initial Discharge Planning Entered On: 06/19/2021 13:14 EDT Performed On: 06/19/2021 13:11 EDT by YOCASTA GLASS RN - Organic Lab Worker Initial Assessment I Previously Documented Living Environment [...] : spouse Enter Doctors Name : Lalo Taco Does Patient have PCP Listed? : Yes Legal Guardian : No YOCASTA GLASS RN - Organic Lab Worker - 06/19/2021 13:11 EDT Initial Assessment II Sensory and Motor Deficits : None Current Home Treatments and Equipment : None YOCASTA GLASS RN - Organic Lab Worker - 06/19/2021 13:11 EDT Discharge Needs I Anticipated Discharge Date : 06/20/2021 EDT Anticipated Discharge To, CM : Home independently, Home with family care Current Home Treatment/Equipment : Current Home Treatment/Equipment No qualifying data available. Post Acute/Home Treatments : None Documentation Status Complete : Yes YOCASTA GLASS RN - Organic Lab Worker - 06/19/2021 13:11 EDT Discharge Needs II Professional Skilled Services : Professional Skilled Services No qualifying data available. Needs Assistance with Transportation : No Patient Discharge Goal : Home YOCASTA GLASS RN - Organic Lab Worker - 06/19/2021 13:11 EDT Narrative Note Narrative Note : Observation day 1 Patient is here for kidney stones. Consults to uro. Lives at home with his . No dme, oxygen, or home health. Covid vaccine shots x 3. PLOF is ind. Probable discharge home when medically ready with to transport. No CM needs at this time. DCP: home YOCASTA GLASS RN - Organic Lab Worker - 06/19/2021 13:11 EDT documented in this encounter Plan of Treatment Not on file documented as of this encounter Visit Diagnoses Not on filedocumented in this encounter Care Teams Lawn Mower Relationship Specialty Start Date End Date Emily Estrada [address] [place] [address] [address] [place] [address] PCP - General 05/14/22 06/09/24 [facility], Provider Not In The System, [place] [address] PCP - General 07/18/24 Lolita Belcher [address] [place] [address], [address] [place] [phone] Advanced Registered Nurse Practitioner Primary Care 06/10/24 documented as of this encounter
--- OUTSIDE RECORDS SUMMARY | 2024-09-05 11:16 | XMS_ITS | Encounter Summary ---
Author Organization [employer] ([place], [place], [place], [place]) Address [address] [place] [address] Care Team Providers Care Mesh Worker Name Role Phone Emily Estrada Primary Care Provider Unavail able [facility], Provider Not In The System Primary Care Provider Unavailable Encounter Details Date Type Department Care Team (Late st Contact Info) Description 06/18/2021 Transcribed Document [facility] [place] Family Medicine [address] [place] [address] ProviderJodie MD [address] [place] [address] Social History Tobacco Use Types [...] Do you speak a language other than Tajik at [facility]? No 06/08/2024 Do you [...] Conversion Note - Historical Provider, - 06/18/2021 2:39 PM CDT ED Discharge Entered On: 06/18/2021 14:40 EDT Performed On: 06/18/2021 14:39 EDT by EL SIMMS director surgical Process Patient Disposition : Admit/Observe Personal Belongings With Patient : Yes Patient Education Completed : Yes Teaching Evaluation : Verbalizes understanding IV Discontinued : No Nursing Documentation Completed : Yes EL SIMMS RN - 06/18/2021 14:39 EDT Admission, ED Nurse Report Accepted By : see adhoc `Nurse Report (Hand Off) : Called Accompanied By, Discharge : Other: commercial tire service technician x1 Fluids/Drips Continued on Admission : No Fluids/Drips Continued on Admission, Comment : saline locked Mode Of Departure : Wheelchair EL SIMMS RN - 06/18/2021 14:39 EDT documented in this encounter Plan of Treatment Not on file documented as of this encounter Visit Diagnoses Not on filedocumented in this encounter Care Teams Mesh Worker Relationship Specialty Start Date End Date Emily Estrada [address] [phone] PCP - General 05/14/22 06/09/24 [facility], Provider Not In The System, [place] [address] PCP - General 07/18/24 Lolita Belcher [address] [place] [address] [place] [address], [address] [place] [phone] Advanced Registered Nurse Practitioner Primary Care 06/10/24 documented as of this encounter
--- OUTSIDE RECORDS SUMMARY | 2024-09-05 11:16 | XMS_ITS | Encounter Summary ---
Author Organization [employer] ([place], [place], [place], [place]) Address [address] [place] [address] Care Team Providers Care Engineering And Development Director Name Role Phone [facility], Provider Not In The System MD Primary Care Provider Unavailable Reason for Referral * Diagnostic X-Ray (Emergency) - New Request Specialty Diagnoses / Procedures Referred By Linwood lozada Referred To Contact Diagnoses Calculus of kidney Procedures X-ray abdomen KUB 1 view Shi Alvarenga PA [address] [place] [address] [place] [address] Phone: tel: fax: Referral ID Status Reason Start Date Expiration Date V isits Requested Visits Authorized [id number] New Request 07/12/2024 07/12/2025 1 1 Encounter Details Date Type Department Care Team (Late st Contact Info) Description 07/12/2024 Outside Orders [facility] Diagnostic Imaging - [place] [address] [place] [address] [address] [place] [phone] Shi Alvarenga PA [address] [place] [address] [address] [place] [id number] Calculus of kidney (Primary Dx) Social History [...] your living situation today? I have a [facility] place to live 06/08/2024 Think about [...] Do you speak a language other than Montserratian at [facility]? No 06/08/2024 Do you [...] kidney documented in this encounter Care Teams Engineering And Development Director Relationship Specialty Start Date End Date [facility], Provider Not In The System, [place] [address] PCP - General 07/18/24 Lolita Belcher [facility] [address], [address] [place] [phone] Advanced Registered Nurse Practitioner Primary Care 06/10/24 documented as of this encounter
--- OUTSIDE RECORDS SUMMARY | 2024-09-05 11:16 | XMS_ITS | Encounter Summary ---
Author Organization [employer] ([place], [place], [place], [place]) Address [address] [place] [address] Care Team Providers Care Engineered Wood Designer Name Role Phone Emily Estrada Primary Care Provider Unavail able [facility], Provider Not In The System Primary Care Provider Unavailable Encounter Details Date Type Department Care Team (Late st Contact Info) Description 06/19/2021 Transcribed Document [facility] [place] [address] [place] [address] ProviderJodie MD [address] [place] [address] Social History Tobacco Use Types [...] Do you speak a language other than Barbadian at [facility]? No 06/08/2024 Do you want help [...] Historical Provider, - 06/19/2021 3:42 PM CDT Nursing Discharge Summary Entered On: 06/19/2021 15:45 EDT Performed On: 06/19/2021 15:42 EDT by Maricarmen Dominguez RN-[employer] Discharge Documentation Discharge Instructions Reviewed With, Opportunity For Questions Given : Patient, Spouse Patient Education Completed : Yes Teaching Method : Explanation, Printed materials, Teach back method Teaching Evaluation : Verbalizes understanding Education Comment : Pt uninterested in education and refusing all treatments. room secured for teaching, present, consented to teaching. Instructed on condition, medication, diet,activity and followup appointment Maricarmen Dominguez, MATIAS-[employer] - 06/19/2021 15:42 EDT Electronically signed by Jane [facility] Conversion Ornamental Brick Installer Cerner at 06/03/2022 10:35 PM CDT documented in this encounter Plan of Treatment Not on file documented as of this encounter Visit Diagnoses Not on filedocumented in this encounter Care Teams Engineered Wood Designer Relationship Specialty Start Date End Date Emily Estrada [address] [facility] [place] [address] PCP - General 05/14/22 06/09/24 [facility], Provider Not In The System, [place] [address] PCP - General 07/18/24 Lolita Belcher [address] [place] [address] [place] [address], [address] [place] [address] Advanced Registered Nurse Practitioner Primary Care 06/10/24 documented as of this encounter
--- OUTSIDE RECORDS SUMMARY | 2024-09-05 11:16 | XMS_ITS | Encounter Summary ---
Author Organization [employer] ([place], [place], [place], [place]) Address [address] [place] [address] Care Team Providers Care Sustainability Consultant Name Role Phone [facility], Provider Not In The System MD [...] Record ed How often does anyone, ellaashley sarah family and friends, physically hurt you? Never 06/08/2024 How often does anyone, ellaashley smith family and friends, insult or talk down to you? Never 06/08/2024 How often does anyone, ellaashley smith family and friends, threaten you with harm? Never 06/08/2024 How often does anyone, ellaashley smith family and friends, scream or curse [...] Do you speak a language other than Macanese at [facility]? No 06/08/2024 Do you want help with [...] on filedocumented in this encounter Care Teams Sustainability Consultant Relationship Specialty Start Date End Date [facility], Provider Not In The System, [facility] [place] [address] PCP - General 07/18/24 Lolita Belcher [address] [place] [address], [place] [phone] Advanced Registered Nurse Practitioner Primary Care 06/10/24 documented as of this encounter
--- OUTSIDE RECORDS SUMMARY | 2024-09-05 11:16 | XMS_ITS | Encounter Summary ---
Author Organization [employer] ([place], [place], [place], [place]) Address [address] [place] [address] Care Team Providers Care Oil Refinery Process Technician Name Role Phone Emily Estrada Primary Care Provider Unavail able [facility], Provider Not In The System Primary Care Provider Unavailable Encounter Details Date Type Department Care Team (Late st Contact Info) Description 06/19/[address] [facility] [place] Family Medicine [address] [place] [address] ProviderJodie MD [address] [place] [address] Social History Tobacco Use Types [...] Do you speak a language other than Moldovan at [facility]? No 06/08/2024 Do you want help with [...] Conversion Note - Historical Provider, - 06/19/2021 2:40 PM CDT Patient Resource [facility] Entered On: 06/19/2021 14:41 EDT Performed On: 06/19/2021 14:40 EDT by Lisa Freedman, FURS SALESPERSON Patient Resource Center Provider Status : EST Other Established Provider Name : Lalo España Patient Phone Number : [phone] Patient Insurance Type : Medicare Source of Referral : Case management Location of Patient : Case management referral Primary Care Scheduled : No Specialty Care Scheduled : Yes Specialty Type Scheduled2 : Urology Urology Provider Name : Kareem Young Urology Appointment Date/Paulie : 06/26/2021 16:15 EDT Qualify for Diabetes and/or Nutrition Referral : No Wound Care Appointment Made : No Why Patient Visited ED- Specialty spent : Other How Patient Arrived at ED : Other Primary Language : Moldovan Patient Resource Center Comment : URO appt made, PCP appt is only if needed by pt Follow Up Needed : No Lisa Freedman, FURS SALESPERSON - 06/19/2021 14:40 EDT documented in this encounter Plan of Treatment Not on file documented as of this encounter Visit Diagnoses Not on filedocumented in this encounter Care Teams Oil Refinery Process Technician Relationship Specialty Start Date End Date Emily Estrada [address] [place] [address] [place] [address] PCP - General 05/14/22 06/09/24 [facility], Provider Not In The System, [place] [address] PCP - General 6/2/25 Lolita Belcher [facility] [place] [address], [address] [place] [phone] Advanced Registered Nurse Practitioner Primary Care 06/10/24 documented as of this encounter
--- OUTSIDE RECORDS SUMMARY | 2024-09-05 11:16 | XMS_ITS | Encounter Summary ---
Author Organization [employer] ([place], [place], [place], [place]) Address [address] [place] [address] Care Team Providers Care Calender Supervisor Name Role Phone Emily Estrada Primary Care Provider Unavail able [facility], Provider Not In The System Primary Care Provider Unavailable Encounter Details Date Type Department Care Team (Late st Contact Info) Description 06/18/2021 Transcribed Document [facility] [place] Family Medicine [address] [place] [address] ProviderJodie MD [address] [place] [address] Social History Tobacco Use Types [...] Do you speak a language other than Indian at [facility]? No 06/08/2024 Do you [...] Conversion Note - Historical Provider, - 06/18/2021 8:28 AM CDT Broset Violence Assessment Entered On: 06/18/2021 8:58 EDT Performed On: 06/18/2021 8:56 EDT by EL SIMMS RN Broset Violence Assessment Broset Violence Checklist of Symptoms : None Broset Violence Symptoms Subtotal : 0 Broset Violence Symptoms Indicator : Low risk (0) Broset Interventions : [facility] precautions for safety used EL SIMMS RN - 06/18/2021 8:56 EDT documented in this encounter Plan of Treatment Not on file documented as of this encounter Visit Diagnoses Not on filedocumented in this encounter Care Teams Calender Supervisor Relationship Specialty Start Date End Date Emily Estrada [address] [place] [address] [address] [place] [address] PCP - General 05/14/22 06/09/24 [facility], Provider Not In The System, [place] [address] PCP - General 07/18/24 Lolita Belcher [address] [place] [address], [address] [place] [phone] Advanced Registered Nurse Practitioner Primary Care 06/10/24 documented as of this encounter
--- OUTSIDE RECORDS SUMMARY | 2024-09-05 11:16 | XMS_ITS | Encounter Summary ---
Author Organization [employer] ([place], [place], [place], [place]) Address [address] [place] [address] Care Team Providers Care Agricultural Systems Specialist Name Role Phone Emily Estrada Primary Care Provider Unavail able [facility], Provider Not In The System Primary Care Provider Unavailable Encounter Details Date Type Department Care Team (Late st Contact Info) Description 06/19/2021 Transcribed Document [facility] [place] Medicine [address] [place] [address] ProviderJodie MD [address] [place] [address] Social History Tobacco Use Types [...] harm? Never 06/08/2024 How often does anyone, pedor smith family and friends, scream or curse [...] Do you speak a language other than Czech at [facility]? No 06/08/2024 Do you [...] Conversion Note - Historical Provider, - 06/19/2021 5:00 AM CDT Chart Check - Review Order Profile Entered On: 06/19/2021 6:31 EDT Performed On: 06/19/2021 5:00 EDT by Melinda Donaldson RN Chart Check Powerplans Initiated/Discontinued as Appropriate : Yes All Active Orders Reviewed : Yes Melinda Donaldson RN - 06/19/2021 6:31 EDT Electronically signed by Jane [facility] Conversion City Collector Cerner at 06/03/2022 10:40 PM CDT documented in this encounter Plan of Treatment Not on file documented as of this encounter Visit Diagnoses Not on filedocumented in this encounter Care Teams Agricultural Systems Specialist Relationship Specialty Start Date End Date Emily Estrada [address] [place] [phone] PCP - General 05/14/22 06/09/24 [facility], Provider Not In The System, [place] [address] PCP - General 07/18/24 Lolita Belcher [facility] [place] [address], [address] [place] [address] Advanced Registered Nurse Practitioner Primary Care 06/10/24 documented as of this encounter
--- OUTSIDE RECORDS SUMMARY | 2024-09-05 11:16 | XMS_ITS | Encounter Summary ---
Author Organization [employer] ([place], [place], [place], [place]) Address [address] [place] [address] Care Team Providers Care Business Support Name Role Phone Emily Estrada Primary Care Provider Unavail able [facility], Provider Not In The System Primary Care Provider Unavailable Encounter Details Date Type Department Care Team (Late st Contact Info) Description 06/19/2021 Transcribed Document [facility] [place] [address] [place] [address] ProviderJodie MD [address] [place] [address] Social History Tobacco Use Types [...] a language other than Liberian at [facility]? No 06/08/2024 Do you want help with [...] Conversion Note - Historical Provider, - 06/19/2021 2:00 AM CDT Crating And Moving Estimator Details Entered On: 06/19/2021 6:31 EDT Performed [...] - 06/19/2021 6:31 EDT Electronically signed by Denia Lara Conversion Automobile Travel Club Counselor Cerner at 06/03/2022 10:48 PM CDT documented in this encounter Plan of Treatment Not on file documented as of this encounter Visit Diagnoses Not on filedocumented in this encounter Care Teams Business Support Relationship Specialty Start Date End Date Emily Estrada [address] [place] [phone] PCP - General 05/14/22 06/09/24 [facility], Provider Not In The System, [place] [address] PCP - General 07/18/24 Lolita Belcher [address] [place] [address], [address] [place] [address] Advanced Registered Nurse Practitioner Primary Care 06/10/24 documented as of this encounter
--- OUTSIDE RECORDS SUMMARY | 2024-09-05 11:16 | XMS_ITS | Encounter Summary ---
Author Organization [employer] ([place], [place], [place], [place]) Address [address] [place] [address] Care Team Providers Care Ink Blender Name Role Phone Emily Estrada Primary Care Provider Unavail able [facility], Provider Not In The System Primary Care Provider Unavailable Encounter Details Date Type Department Care Team (Late st Contact Info) Description 06/19/2021 Transcribed Document [facility] [place] [address] [place] [address] ProviderJodie MD [address] [place] [address] Social History Tobacco Use Types [...] Do you speak a language other than Palestinian at [facility]? No 06/08/2024 Do you want help [...] Conversion Note - Historical Provider, - 06/19/2021 3:27 PM CDT [facility] [address] [place], [place] [id number] TAY THOMAS Montez :1955 Visit Time:06/18/2021 Your Visit Summary Your Care Team Admitting Physician - BRYCE GREENE MD-[facility] Attending Physician - BENJAMIN TOMPKINS MD Primary Care Physician - DESIREE LEE MD-[facility] Referring Physician - BRYCE GREENE MD-[facility] [...] made, Bring discharge instructions with you Where: [address] [facility] [address] [place] [address]- [facility] (1) Follow Up with Follow up with primary care provider When Within As needed Medications What How Much When Instructions Next Dose promethazine (promethazine 25 mg oral tablet) 1 Tablet(s) Oral Every 6 Hours as needed for as needed for nausea/vomiting Pickup at [facility] as needed acetaminophen-hydrocodone (acetaminophen-HYDROcodone 325 mg-5 mg oral tablet) See instructions 1 or 2 PO Q6H PRN severe pain not to exceed 8 tablets/ day [facility] atorvastatin (atorvastatin 10 mg oral [...] Tablet(s) Oral Every Day tomorrow Pharmacy Information [facility]: [address] [place] [phone] Take your medications faithfully. Do NOT skip [...] provider about working with a diet and medical office specialist (dietitian) to develop an eating plan. ??? Exercise regularly. This can help you lose weight and control your cholesterol and diabetes. Talk to your health care provider about an exercise plan and which activities are best for you. ??? Take gvsh-pni-ruuggug and prescription medicines only as told by [...] provider. Document Revised: 01/15/2018 Document Reviewed: 11/11/2017 [employer] Patient Education ?? 2020 [employer] Inc. Nonalcoholic Fatty Liver Disease Diet, Adult [...] eat? Fruits Bananas. Apples. Oranges. Grapes. Papaya. [place]. Pomegranate. Kiwi. Grapefruit. Cherries. Vegetables Lettuce. Spinach. Peas. Beets. Cauliflower. Cabbage. Broccoli. Carrots. Tomatoes. Squash. Eggplant. Herbs. Peppers. Onions. Cucumbers. [place] sprouts. Yams and sweet potatoes. Beans. Lentils. Grains Whole wheat or whole-grain foods, including breads, crackers, cereals, and pasta. Stone-ground whole wheat. Unsweetened oatmeal. Bulgur. Barley. Quinoa. Brown or wild rice. [place] or whole wheat flour tortillas. Meats and [...] Where to find more information The National [place] of Diabetes and Digestive and Kidney Diseases: [...] provider. Document Revised: 05/27/2019 Document Reviewed: 02/24/2019 [employer] website Patient Education ?? 2020 Pa[employer]. Kidney Stones Kidney stones are rock-like masses [...] these instructions at home: Medicines ??? Take dytz-wou-qxdbfox and prescription medicines only as told by [...] provider. Document Revised: 06/21/2019 Document Reviewed: 06/21/2019 [employer] Patient Education ?? 2020 [employer] website Inc. Dietary Guidelines to Help Prevent Kidney [...] ? 8 oz (237 mL) of milk, rardfak-fonucpttmxpb-aftos milk, and calcium-fortifiedfruit juice. Calcium-fortified means that [...] Spinach (cooked), rhubarb, beets, sweet potatoes, and [place] chard. ? Peanuts. ? Potato chips, polish fries, and baked potatoes with skin on. ? Nuts and nut products. ? Chocolate. ??? If you regularly take a diuretic medicine, make sure to eat at least 1 or 2 servings of fruits or vegetables that are high in potassium each day. These include: ? Avocado. ? Banana. ? [place], prune, carrot, or tomato juice. ? Baked [...] fish oil, or vitamin B6. ??? Take ibfc-kqq-likfyio and prescription medicines only as told by [...] Casseroles. Pizza. Lasagna. Frozen meals. Potato chips. Nepalese fries. The items listed above may not [...] provider. Document Revised: 01/26/2020 Document Reviewed: 01/26/2020 [employer] Patient Education ?? 2020 Paired Health. Emergency Awareness and Preventative Care STROKE is [...] Assistance with quitting is available by contacting 8-445-XNZX-NOW. This is a free resource providing counseling, [...] ) Macrocytosis: 1+ ANC #: 2 K/uL [place] Percent Man: 16 % -- Normal range [...] range between ( 0.0 and 7.0 ) [place] #: 0.94 K/uL -- Normal range between ( 0.16 and 1.00 ) Eos #: 0.13 x10(3)/uL -- Normal range between ( 0.00 and 0.80 ) [place] %: 11.5 % -- Normal range between [...] ) Urine Bilirubin Dipstick: Negative Urine Specific [place]: 1.011 -- Normal range between ( 1.005 [...] was given the opportunity to ask questions. Patient/Billet Worker Name: Patient/Billet Worker Signature: Relationship to Patient: Clinician/Hospital Billet Worker Signature: Date: documented in this encounter Plan of Treatment Not on file documented as of this encounter Visit Diagnoses Not on filedocumented in this encounter Care Teams Ink Blender Relationship Specialty Start Date End Date Emily Estrada [address] [place] [address] [address] [place] [address] PCP - General 05/14/22 06/09/24 [facility], Provider Not In The System, [place] [address] PCP - General 07/18/24 Lolita Belcher [address] [place] [address], [address] [place] [id number] Advanced Registered Nurse Practitioner Primary Care 06/10/24 documented as of this encounter
--- OUTSIDE RECORDS SUMMARY | 2024-09-05 11:16 | XMS_ITS | Encounter Summary ---
Author Organization [employer] ([place], [place], [place], [place]) Address [address] [place] [address] Care Team Providers Care Aromatherapist Name Role Phone Emily Estrada Primary Care Provider Unavail able [facility], Provider Not In The System Primary Care Provider Unavailable Encounter Details Date Type Department Care Team (Late st Contact Info) Description 06/18/2021 Transcribed Document [facility] Family Medicine [address] [place] [address] ProviderJodie MD [address] [place] [address] Social History Tobacco Use Types [...] Do you speak a language other than American at [facility]? No 06/08/2024 Do [...] Conversion Note - Historical Provider, - 06/18/2021 12:04 PM CDT Admission History, [...] : Unaccompanied Support Person/Pt Rep Name : Kelsie Germain Contact Password : [employer] Support Person/Pt Rep Contact Information : [phone] Want Family/Rep/Phys Notified of Admit : No Emergency Contact #1 : Kelsie Marcellus Emergency Contact #1 Emergency Contact #1 Relationship : Emergency Contact #2 : na Emergency Contact #2 Phone Number : na Emergency Contact #2 Relationship : na Chief Complaint : to ed with c/o right flank pain. At [facility] yesterday and was told that he had multiple kidney stones. He has had to have several stents. Information Obtained From : Patient Primary Language : American Communication Barrier : None Transit Planning Director Needed : No Helena Xiao RN - 06/18/2021 14:57 EDT Fall Risk Scales ABCs Fall Injury Risk Identification : None ACEVES Hx Falls Immediate/Within 3 Months : No Aceves Secondary Diagnosis : No ACEVES Use of Ambulatory Aid : None ACEVES IV Therapy or IV Access : Yes Aceves Gait/Transferring : Normal, bedrest, immobile Acvees Mental Status : Oriented to own ability Aceves Fall Risk Score : 20 ACEVES Fall Scale Risk Level : 0-24 Low Risk [place] Fall Interventions : Adequate lighting, Assistive devices [...] Source : Stated Height Entry Format : [place] Height, Feet : 6 ft(Converted to: 183 cm, 72 Inch) Height, Inches : 1 Inch(Converted to: 0 ft 1 Inch, 2.54 cm) Clinical Height : 185.42 cm Weight Source : Standing scale Weight Entry Format : [place] Clinical Dosing Weight : 114.55 kg Weight, Pounds : 252 lb Body Surface Area (BSA) : 2.38 m2 Body Mass Index : 33.3 kg/m2 (HI) [place] Body Weight : 79 kg Helena Xiao [...] History Weight Entry Format Nutrition History : [place] Feeding Ability : Independent Adaptive Feeding Equipment : Regular Oral Medication Administration : By mouth Eating Poorly Due to Decreased Appetite : Yes Unplanned Weight Loss in Past 3-6 Months : No Malnutrition Screening Tool Total(mal) : 1 Malnutrition Screening Tool Risk Level : Patient not at risk Helena Xiao RN - 06/18/2021 14:57 EDT [place] Suicide Severity Rating Scale (C-SSRS) CSSRS Past [...] on filedocumented in this encounter Care Teams Aromatherapist Relationship Specialty Start Date End Date Emily Estrada [address] [place] [phone] PCP - General 05/14/22 06/09/24 [facility], Provider Not In The System, [place] [address] PCP - General 07/18/24 Lolita Belcher [address] [place] [address], [address] [place] [address] Advanced Registered Nurse Practitioner Primary Care 06/10/24 documented as of this encounter
--- OUTSIDE RECORDS SUMMARY | 2024-09-05 11:16 | XMS_ITS | Encounter Summary ---
Author Organization [employer] ([place], [place], [place], [place]) Address [address] [place] [address] Care Team Providers Care Customer Service Dispatcher Name Role Phone Emily Estrada Primary Care Provider Unavail able [facility], Provider Not In The System Primary Care Provider Unavailable Encounter Details Date Type Department Care Team (Late st Contact Info) Description 07/30/2020 Transcribed Document [facility] [place] [address] [place] [address] ProviderJodie MD [address] [place], [place] [address] Social History Tobacco Use Types Packs/Day Years [...] Historical ProviderMD - 07/30/2020 7:15 PM CDT [facility] Main OR PACU Summary Primary Physician: VLAD LEPE MD-URO Finalized Date/Time: 08/01/20 10:01:46 Pt. Name: TAY THOMAS /Sex: 1955 Male Med Rec #: [id number] Physician: VLAD LEPE MD-URO Financial #: [id number] Pt. Type: O Room/Bed: Admit/Disch: 07/30/20 13:09:00 - Institution: [facility] Main OR PACU I Case Times Entry 1 In PACU I 07/30/20 20:03:00 Ready for PACU 07/30/20 21:02:00 Discharge Discharge from PACU 07/30/20 21:02:00 I Last Modified By: Herlinda Humphrey Rn 07/30/20 21:02:55 Finalized By: Zenon Valentine RN Document Signatures Signed By: Khloe Barclay, Nurse Gravity Prospecting Operator 07/31/20 14:42 Herlinda Humphrey Rn 07/30/20 21:03 Zenon Valentine RN 08/01/20 10:01 Unfinalized History Date/Time Username Reason for Unfinalizing Freetext Reason for Unfinalizing 07/31/20 14:42 [id number] Correct Documentation 08/01/20 10:01 STEVE Correct Documentation Electronically signed by [facility] Conversion Raw Material Planner Cerner at 06/03/2022 10:49 PM CDT documented in this encounter Plan of Treatment Not on file documented as of this encounter Visit Diagnoses Not on filedocumented in this encounter Care Teams Customer Service Dispatcher Relationship Specialty Start Date End Date Emily Estrada [address] [place] [phone] PCP - General 05/14/22 06/09/24 [facility], Provider Not In The System, [place] [address] PCP - General 07/18/24 Lolita Belcher [address] [facility], [address] [address] Advanced Registered Nurse Practitioner Primary Care 06/10/24 documented as of this encounter
--- OUTSIDE RECORDS SUMMARY | 2024-09-05 11:16 | XMS_ITS | Encounter Summary ---
Author Organization [employer] ([place], [place], [place], [place]) Address [address] [place] [address] Care Team Providers Care Weigher Bulker Name Role Phone Emily Estrada Primary Care Provider Unavail able [facility], Provider Not In The System Primary Care Provider Unavailable Encounter Details Date Type Department Care Team (Late st Contact Info) Description 06/18/2021 Transcribed Document [facility] [place] [address] [place] [address] ProviderJodie MD [address] [place] [address] Social History Tobacco Use Types [...] Do you speak a language other than Estonian at [facility]? No 06/08/2024 Do [...] Historical Provider, - 06/18/2021 8:28 AM CDT [place] Suicide Severity Rating Scale (C-SSRS) Entered On: 06/18/2021 8:58 EDT Performed On: 06/18/2021 8:56 EDT by EL SIMMS RN [place] Suicide Severity Rating Scale (C-SSRS) CSSRS Past [...] on filedocumented in this encounter Care Teams Weigher Bulker Relationship Specialty Start Date End Date Emily Estrada [address] [place] [phone] PCP - General 05/14/22 06/09/24 [facility], Provider Not In The System, [place] [address] PCP - General 07/18/24 Lolita Belcher [address] [place] [address], [address] [address] Advanced Registered Nurse Practitioner Primary Care 06/10/24 documented as of this encounter
--- OUTSIDE RECORDS SUMMARY | 2024-09-05 11:16 | XMS_ITS | Encounter Summary ---
Author Organization [employer] ([place], [place], [place], [place]) Address [address] [place] [address] Care Team Providers Care Engraver Optical Frames Name Role Phone Emily Estrada Primary Care Provider Unavail able [facility], Provider Not In The System Primary Care Provider Unavailable Encounter Details Date Type Department Care Team (Late st Contact Info) Description 06/18/2021 Transcribed Document [facility] [address] [place] [address] ProviderJodie MD [address] [place] [address] Social History Tobacco Use Types [...] Do you speak a language other than Macedonian at [facility]? No 06/08/2024 Do you want [...] Historical Provider, - 06/18/2021 8:28 AM CDT ED Triage Entered On: 06/18/2021 8:39 EDT Performed On: 06/18/2021 8:36 EDT by Shemar Green RN ED Triage Across the Room Chief Complaint : to ed with c/o right flank pain. At [facility] yesterday and was told that he had multiple kidney stones. He has had to have several stents. Triage Date/Time : 06/18/2021 8:36 EDT Shemar Green RN - 06/18/2021 8:36 EDT DCP GENERIC CODE Tracking Acuity : 3 - Urgent Tracking Group : [facility] ED Shemar Green RN - 06/18/2021 8:36 EDT [...] Unspecified ; Reactions: Flushing ; Created By: Yadi Del Angel RN; Reaction Status: Active ; Category: Drug ; Substance: Flomax ; Type: Allergy ; Updated By: Yadi Del Angel RN; Reviewed Date: 06/18/2021 8:37 EDT Diagnosis Control ED (As Of: 06/18/2021 08:39:27 EDT) Problems(Active) Arthritis (SNOMED CT :9080382 ) Name of Problem: Arthritis ; Recorder: Yadi Del Angel RN; Confirmation: Confirmed ; Classification: Medical ; Code: [id number] ; Contributor System: PowerChart ; Last Updated: 07/30/2020 14:12 EDT ; Life Cycle Date: 07/30/2020 ; Life Cycle Status: Active ; Vocabulary: SNOMED CT At risk for sleep apnea (IMO :37581524 ) Name of Problem: At risk for sleep apnea ; Recorder: SYSTEM, SYSTEM; Confirmation: Confirmed ; Classification: Medical ; Code: [id number] ; Last Updated: 07/30/2020 14:36 EDT ; Life Cycle Date: 07/30/2020 ; Life Cycle Status: Active ; Vocabulary: IMO GERD (SNOMED CT :392640267 ) Name of Problem: GERD ; Recorder: Yadi Del Angel RN; Confirmation: Confirmed ; Classification: Medical ; Code: [id number] ; Contributor System: PowerChart ; Last Updated: 07/30/2020 14:11 EDT ; Life Cycle Date: 07/30/2020 ; Life Cycle Status: Active ; Vocabulary: SNOMED CT Gout (SNOMED CT :862241572 ) Name of Problem: Gout ; Recorder: Yadi Del Angel RN; Confirmation: Confirmed ; Classification: Medical ; Code: [id number] ; Contributor System: PowerChart ; Last Updated: 07/30/2020 14:12 EDT ; Life Cycle Date: 07/30/2020 ; Life Cycle Status: Active ; Vocabulary: SNOMED CT Hyperlipidemia (SNOMED CT :93341656 ) Name of Problem: Hyperlipidemia ; Recorder: Yadi Del Angel RN; Confirmation: Confirmed ; Classification: Medical ; Code: 76317957 ; Contributor System: PowerChart ; Last Updated: 07/30/2020 14:12 EDT ; Life Cycle Date: 07/30/2020 ; Life Cycle Status: Active ; Vocabulary: SNOMED CT Hypertension (SNOMED CT :8200665697 ) Name of Problem: Hypertension ; Recorder: Yadi Del Angel RN; Confirmation: Confirmed ; Classification: Medical ; Code: [id number] ; Contributor System: [facility] [employer] ; Last Updated: 07/30/2020 14:10 EDT ; Life Cycle Date: 07/30/2020 ; Life Cycle Status: Active ; Vocabulary: SNOMED CT Myocardial infarction x2 (SNOMED CT :76994117 ) Name of Problem: Myocardial infarction x2 ; Onset Date: 2009 ; Recorder: Yadi Del Angel RN; Confirmation: Confirmed ; Classification: Medical ; Code: 66773145 ; Contributor System: PowerChart ; Last Updated: 07/30/2020 14:10 EDT ; Life Cycle Date: 07/30/2020 ; Life Cycle Status: Active ; Vocabulary: SNOMED CT Smoker - cigars (SNOMED CT :677601377 ) Name of Problem: Smoker - cigars ; Recorder: Yadi Del Angel RN; Confirmation: Confirmed ; Classification: Medical ; Code: 232148495 ; Contributor System: [employer] ; Last Updated: 07/30/2020 14:11 EDT ; Life Cycle Date: 07/30/2020 ; Life Cycle Status: Active ; Vocabulary: SNOMED CT Thyroid cancer (SNOMED CT :983494135 ) Name of Problem: Thyroid cancer ; Recorder: Yadi Del Angel RN; Confirmation: Confirmed ; Classification: Medical ; Code: 086310399 ; Contributor System: [employer] ; Last Updated: 07/30/2020 14:13 EDT ; Life Cycle Date: 07/30/2020 ; Life Cycle Status: Active ; Vocabulary: SNOMED CT Diagnoses(Active) Flank pain Date: 06/18/2021 ; Diagnosis Type: Reason For Visit ; Confirmation: Complaint of ; Clinical Dx: Flank pain ; Classification: Medical ; Clinical Service: Emergency medicine ; Code: PNED ; Probability: 0 ; Diagnosis Code: [id number] ED Height and Weight Height Source : Stated Height Entry Format : Christian Height, Feet : 6 ft(Converted to: 183 cm, 72 Inch) Height, Inches : 1 Inch(Converted to: 0 ft 1 Inch, 2.54 cm) Clinical Height : 185.42 cm Weight Source, ED : Critical estimated dosing weight Weight Entry Format : Christian Weight, Pounds : 240 lb Clinical Dosing Weight : 109.09 kg Body Surface Area (BSA) : 2.33 m2 Body Mass Index : 31.7 kg/m2 (HI) [place] Body Weight (IBW) : 78.88 kg Shemar Green RN - 06/18/2021 8:36 EDT documented in this encounter Plan of Treatment Not on file documented as of this encounter Visit Diagnoses Not on filedocumented in this encounter Care Teams Engraver Optical Frames Relationship Specialty Start Date End Date Emily Estrada [address] [place] [phone] PCP - General 05/14/22 06/09/24 [facility], Provider Not In The System, [place] [address] PCP - General 07/18/24 Lolita Belcher [address], [address] [address] Advanced Registered Nurse Practitioner Primary Care 06/10/24 documented as of this encounter
--- OUTSIDE RECORDS SUMMARY | 2024-09-05 11:16 | XMS_ITS | Encounter Summary ---
Author Organization [employer] ([place], [place], [place], [place]) Address [address] [place] [address] Care Team Providers Care Mold Cleaning And Storage Supervisor Name Role Phone Emily Estrada Primary Care Provider Unavail able [facility], Provider Not In The System Primary Care Provider Unavailable Encounter Details Date Type Department Care Team (Late st Contact Info) Description 06/19/2021 Transcribed Document [facility] [place] Family Medicine [address] [place] [address] ProviderJodie MD [address] [place] [address] Social History Tobacco Use Types [...] Isolated 0 06/08 Educational Attainment Answer Date Kkio rded Do you speak a language other than Mozambican at [facility]? No 06/08/2024 Do you want help [...] Conversion Note - Historical Provider, - 06/19/2021 10:01 AM CDT Meds to Bed Enrollment Entered On: 06/19/2021 10:02 EDT Performed On: 06/19/2021 10:01 EDT by Amos Chester, Dye Stand Loader Cert Lead Meds to Bed Enrollment Patient Enrollment Decision: : Yes/enroll in meds to bed program Amos Chester Dye Stand Loader Cert Lead - 06/19/2021 10:01 EDT documented in this encounter Plan of Treatment Not on file documented as of this encounter Visit Diagnoses Not on filedocumented in this encounter Care Teams Mold Cleaning And Storage Supervisor Relationship Specialty Start Date End Date Emily Estrada [address] [place] [phone] PCP - General 05/14/22 06/09/24 [facility], Provider Not In The System, [place] [address] PCP - General 07/18/24 Lolita Belcher [facility] [place] [address], [address] [place] [address] Advanced Registered Nurse Practitioner Primary Care 06/10/24 documented as of this encounter
--- OUTSIDE RECORDS SUMMARY | 2024-09-05 11:16 | XMS_ITS | Encounter Summary ---
Author Organization [employer] ([place], [place], [place], [place]) Address [address] [place] [address] Care Team Providers Care Block Tester Name Role Phone Emily Estrada Primary Care Provider Unavail able [facility], Provider Not In The System Primary Care Provider Unavailable Encounter Details Date Type Department Care Team (Late st Contact Info) Description 06/18/2021 Transcribed Document [facility] [place] [address] [place] [address] ProviderJodie MD [address] [place] [address] Social History Tobacco Use Types [...] you? Never 06/08/2024 How often does anyone, pedor smith family and friends, insult or talk [...] speak a language other than American at [facility]? No 06/08/2024 Do [...] Conversion Note - Historical Provider, - 06/18/2021 2:24 PM CDT ED Event Note Entered On: 06/18/2021 14:24 EDT Performed On: 06/18/2021 14:24 EDT by EL SIMMS RN ED Event Note ED Event Date/Time : 06/18/2021 14:24 EDT ED Event Location : Assigned room ED Description of Event : report called to Yara SALCEDO on 4A. Will transfer shortly. EL SIMMS RN - 06/18/2021 14:24 EDT Electronically signed by Jane [facility] Conversion Research Specialist Cerner at 06/03/2022 10:40 PM CDT documented in this encounter Plan of Treatment Not on file documented as of this encounter Visit Diagnoses Not on filedocumented in this encounter Care Teams Block Tester Relationship Specialty Start Date End Date Emily Estrada [address] [phone] PCP - General 05/14/22 06/09/24 [facility], Provider Not In The System, [place] [address] PCP - General 07/18/24 Lolita Belcher [address] [place] [address], [address] [place] [id number] Advanced Registered Nurse Practitioner Primary Care 06/10/24 documented as of this encounter
--- OUTSIDE RECORDS SUMMARY | 2024-09-05 11:16 | XMS_ITS | Encounter Summary ---
Author Organization [employer] ([place], [place], [place], [place]) Address [address] [place] [address] Care Team Providers Care Bottom Cementer Name Role Phone Emily Estrada Primary Care Provider Unavail able [facility], Provider Not In The System Primary Care Provider Unavailable Encounter Details Date Type Department Care Team (Late st Contact Info) Description 06/18/[address] [facility] [place] Family Medicine [address] [place] [address] ProviderJodie MD [address] [place] [address] Social History Tobacco Use Types [...] Do you speak a language other than Monegasque at [facility]? No 06/08/2024 Do you want [...] Provider, - 06/18/2021 8:28 AM CDT ED Assessment [...] Communication Barrier : None Primary Language : Monegasque Any Spiritual/Cultural Needs or Requests : No [...] Cardiovascular ASMT, ED Cardiovascular Assessment WDL : WDEL JENKINS RN - 06/18/2021 8:56 EDT Respiratory Respiratory Assessment WDL : LORIL EL SIMMS RN - 06/18/2021 8:56 EDT Oxygen Therapy Oxygen Therapy Mode : Room air EL SIMMS RN - 06/18/2021 8:56 EDT Genitourinary Assessment, ED Genitourinary Assessment WDL : ABDULKADRI with exceptions (Comment: pt has known kidney [...] yesterday are not helping at this time. [LE SIMMS RN - 06/18/2021 8:56 EDT] ) EL SIMMS RN - 06/18/2021 8:56 EDT Neurologic ASMT, ED Neurologic Assessment WDL : EL RODRIGUEZ RN - 06/18/2021 8:56 EDT Pain Assessment Pain Assessment : Initial assessment Pain Scale Used : 0-10 Scale EL SIMMS RN - 06/18/2021 8:56 EDT Pain Scale Intensity : 10 EL SIMMS RN - 06/18/2021 8:56 EDT Image 4 - Images currently included in the form version of this document have not been included in the text rendition version of the form. Electronically signed by Interface, Denia Conversion Police Communications Dispatcher Cerner at 06/03/2022 10:34 PM CDT documented in this encounter Plan of Treatment Not on file documented as of this encounter Visit Diagnoses Not on filedocumented in this encounter Care Teams Bottom Cementer Relationship Specialty Start Date End Date DayAbebaBarEmily ordonez [address] [phone] PCP - General 05/14/22 06/09/24 [facility], Provider Not In The System, [place] [address] PCP - General 07/18/24 Lolita Belcher [facility] [place] [address] [facility], [address] [place] [id number] Advanced Registered Nurse Practitioner Primary Care 06/10/24 documented as of this encounter
--- OUTSIDE RECORDS SUMMARY | 2024-09-05 11:16 | XMS_ITS | Encounter Summary ---
Author Organization [employer] ([place], [place], [place], [place]) Address [address] [place] [address] Care Team Providers Care Solid Plasterer Name Role Phone Emily Estrada Primary Care Provider Unavail able [facility], Provider Not In The System Primary Care Provider Unavailable Encounter Details Date Type Department Care Team (Late st Contact Info) Description 06/18/2021 Transcribed Document [facility] [place] [address] [place] [address] ProviderJodie MD [address] [place] [address] Social History Tobacco Use Types [...] Do you speak a language other than Nepalese at [facility]? No 06/08/2024 Do you want [...] Conversion Note - Historical Provider, - 06/18/2021 5:53 PM CDT DATE OF CONSULTATION: 06/18/2021 REASON FOR CONSULTATION: Urolithiasis with back pain. BRIEF HISTORY: The patient is a 65-year-old gentleman, known to me for previous history of urolithiasis requiring intervention. One week ago, he began having bilateral lower flank pain, now concentrating more on the right side. At that time, he had a CT scan at [facility] which showed some small bilateral stones, but [...] important to continue with straining of urine. /[id number] Kareem Young MD TDA/AQ / TDA / MODL /[id number] Electronically signed by Interface, [facility] Conversion Compliance Counsel Cerner at 06/03/2022 10:48 PM CDT documented in this encounter Plan of Treatment Not on file documented as of this encounter Visit Diagnoses Not on filedocumented in this encounter Care Teams Solid Plasterer Relationship Specialty Start Date End Date Emily Estrada [address] [place] [phone] PCP - General 05/14/22 06/09/24 [facility], Provider Not In The System, [place] [address] PCP - General 07/18/24 Lolita Belcher On license of [facility] [place] [address], [address] [address] Advanced Registered Nurse Practitioner Primary Care 06/10/24 documented as of this encounter
--- OUTSIDE RECORDS SUMMARY | 2024-09-05 11:16 | XMS_ITS | Encounter Summary ---
Author Organization [employer] ([place], [place], [place], [place]) Address [address] [place] [address] Care Team Providers Care Taper And Floater Name Role Phone Emily Estrada Primary Care Provider Unavail able [facility], Provider Not In The System Primary Care Provider Unavailable Encounter Details Date Type Department Care Team (Late st Contact Info) Description 06/19/2021 Transcribed Document [facility] [place] [address] [place] [address] ProviderJodie MD [address] [place] [address] Social History Tobacco Use Types [...] speak a language other than Indian at [facility]? No 06/08/2024 Do you want help [...] Conversion Note - Historical Provider, - 06/19/2021 4:16 PM CDT Nursing Discharge [...] on condition, medication, diet,activity and followup appointment Mela Reno RN-PATIENT CARE BEDSIDE NON-EXEMPT - 06/19/2021 16:16 EDT Electronically signed by Denia Lara Conversion Clinical Laboratory Technologist Cerner at 06/03/2022 10:43 PM CDT documented in this encounter Plan of Treatment Not on file documented as of this encounter Visit Diagnoses Not on filedocumented in this encounter Care Teams Taper And Floater Relationship Specialty Start Date End Date Emily Estrada [address] [place] [phone] PCP - General 05/14/22 06/09/24 [facility], Provider Not In The System, [place] [address] PCP - General 07/18/24 Lolita Belcher [address], [address] [place] [address] Advanced Registered Nurse Practitioner Primary Care 06/10/24 documented as of this encounter
--- OUTSIDE RECORDS SUMMARY | 2024-09-05 11:16 | XMS_ITS | Encounter Summary ---
Author Organization [employer] ([place], [place], [place], [place]) Address [address] [place] [address] Care Team Providers Care Suit Maker Name Role Phone Emily Estrada Primary Care Provider Unavail able [facility], Provider Not In The System Primary Care Provider Unavailable Encounter Details Date Type Department Care Team (Late st Contact Info) Description 06/18/2021 Transcribed Document [facility] [place] Medicine [address] [place] [address] ProviderJodie MD [address] [place] [address] Social History Tobacco Use Types [...] Do you speak a language other than Lebanese at [facility]? No 06/08/2024 [...] Conversion Note - Historical Provider, - 06/18/2021 9:19 AM CDT Patient: TAY THOMAS Age: 65 years Sex: Male : 1955 Associated Diagnoses: Kidney stone Author: GALA AVILA, APR Basic Information Time seen: Immediately upon arrival. History source: Patient. Arrival mode: Private vehicle. History limitation: None. Additional information: Chief Complaint from Nursing Triage Note : Chief Complaint 06/18/2021 8:36 EDT Chief Complaint to ed with c/o right flank pain. At [facility] yesterday and was told that he [...] Patient states that he was at [facility] ER last night and given pain medicine [...] Lithotripsy in 2019 at 63 Years. Cholecystectomy ([id number]) in 2017 at 61 Years. Thyroidectomy in 2010 at 55 Years. Rotator cuff repair of right shoulder ([id number]) in 2011 at 55 Years. Cyst removal [...] EDT Height Source Stated Height Entry Format [place] Height/Length, SYRIAC (ft) 6 ft Height/Length SYRIAC 1 Inch CLINICALHEIGHT 185.42 cm [place] Body Weight 78.88 kg Weight Source, ED Critical estimated dosing weight Weight Entry Format [place] Weight [place] lb 240 lb CLINICALWEIGHT 109.09 kg Body [...] Triage: ED C-SSRS: ED Clinical Reconciliation: ED hydroelectric plant structural engineer: Lipase Level: Normal Saline Flush: 10 mL, [...] % 21.5 % Lymph # 1.75 x10(3)/uL [place] % 11.5 % HI [place] # 0.94 K/uL Eos % 1.6 % Eos # 0.13 x10(3)/uL Baso % 1.0 % Baso # 0.08 x10(3)/uL Slide Review No IG# 0.03 x10(3)/uL IG% 0.40 % . Radiology results: Radiology Results (Last 48 hours) [id number] -- 06/18/2021 08:27 CT Abdomen Pelvis WO [...] on filedocumented in this encounter Care Teams Suit Maker Relationship Specialty Start Date End Date Emily Estrada [address] [place] [phone] PCP - General 05/14/22 06/09/24 [facility], Provider Not In The System, [place] [address] PCP - General 07/18/24 Lolita Belcher [address], [address] [place] [address] Advanced Registered Nurse Practitioner Primary Care 06/10/24 documented as of this encounter
--- OUTSIDE RECORDS SUMMARY | 2024-09-05 11:17 | XMS_ITS | Data Portability ---
Author Organization [facility] KHUSHI FisherS WALTON CLOSED Address [address] [place] [address] Care Team Providers Care Cobbler Mckay Name Role Phone DESIREE LEE Primary Care [...] of seeking emergency care if condition worsens. [email or web address] Not available 07/12/2024 20:00:51 07/26/2024 07/26/2024 68-year-old [...] month for further evaluation and management refinement. [email or web address] Not available 07/26/2024 13:02:15 Plan of Treatment Reminders Order Date Submit Date Provider Last Modified By Organization Details Last Modified Time Details Appointments RECHECK 2024 02:45P Twan PUENTE PA-C Not available Not available Not available Lab kidney stone analysis 2024 025 [facility], [address] [place] [address], [address], 07/29/2024 01:34:07 PTH (parathyr oid hormone), intact + calcium, serum or plasma 2024 025 [facility], [address] [place] [address], [address], 07/26/2024 15:04:10 unlisted lab - urology custom panel 2024 025 [facility], [address] [place] [address], [address], 07/26/2024 15:10:06 urinalysi s panel, auto 2024 025 [email or web address] 4 [facility], [address], [place], [address], 07/26/2024 09:19:12 urinalysi s panel, auto 2024 025 [email or web address] 4 [facility], [address], [address], [place], [address], 07/12/2024 14:16:00 culture, urine 2024 025 [facility], [address] [place] [address], [address], 07/13/2024 14:38:02 CBC w/ auto diff 2024 025 [facility], [address] [place] [address], [address], 07/12/2024 18:57:35 BMP, serum or plasma 2024 025 [facility], [address] [place] [address], [address], 07/12/2024 19:16:21 surgical pathology study 2024 025 [facility], [address] [place] [address], [address], 04/12/2024 17:44:22 Referral None recorded. Procedures None recorded. Surgeries None recorded. Imaging CT, abdomen + pelvis, w/o contrast 2024 025 [facility], [address] [place], [address], 07/12/2024 15:03:06 MRI, cervical spine, w/o contrast 2023 024 [facility], [address] [place], [address], 12/15/2023 17:11:59 Medication Orders tamsulosi n 0.4 mg capsule 2024 [facility], [address] [place] [address], [id number], 08/08/2024 11:31:37 ceftriaxo ne 1 gram solution for injection 2024 [email or web address] 4 [facility], [address] [place] [address], [id number], 07/12/2024 16:27:48 diclofena c sodium 75 mg tablet,de layed release 2023 024 [facility], [address] [place] [address], [id number], 11/23/2023 09:45:15 Patient TargetsNo targets recorded. Patient Instructions Encounter Date Encounter Id Patient Instructions Last Modified By Organization Details Last Modified Time 04/11/2024 [id number] - Benign moles a nd keratoses seen [...] lesions [email or web address] Not available 04/11/2024 14:52:24 07/12/2024 [id number] - Take prescribe d antibiotics as directed. [...] the need for quick escalation if necessary. [email or web address] Not available 07/12/2024 19:57:57 07/26/2024 [id number] - Continue takin g Tamsulosin as prescribed. [...] Clean Catch Not Available [facility] [address], [place], [address], 05/11/2023 12:21:10 05/11/19 24 05/11/2023 urina lysis panel , auto Unknown Analyte Yellow Not Available [facility] [address], [place], [address], 05/11/2023 12:21:10 05/11/19 24 05/11/2023 urina lysis panel , auto Unknown Analyte Clear Not Available [facility] [address], [place], [address], 05/11/2023 12:21:10 05/11/19 24 05/11/2023 urina lysis panel , auto Unknown Analyte 1.015 Not Available [facility] [address], [place], [address], 05/11/2023 12:21:10 05/11/19 24 05/11/2023 urina lysis panel , auto Unknown Analyte 1.003- 1.035 Not Available [facility] [address], [place], [address], 05/11/2023 12:21:10 05/11/19 24 05/11/2023 urina lysis panel , auto Unknown Analyte 5.0 Not Available [facility] [address], [place], [address], 05/11/2023 12:21:10 05/11/19 24 05/11/2023 urina lysis panel , auto Unknown Analyte 5.0-8. 0 Not Available [facility] [address], [place], [address], 05/11/2023 12:21:10 05/11/19 24 05/11/2023 urina lysis panel , auto Unknown Analyte 25 Elvia/ul Trace Not Available [facility] [address], [place], [address], 05/11/2023 12:21:10 05/11/19 24 05/11/2023 urina lysis panel , auto Unknown Analyte Negati ve Not Available [facility] [address], [place], [address], 05/11/2023 12:21:10 05/11/19 24 05/11/2023 urina lysis panel , auto Unknown Analyte Negati ve Not Available [facility] [address], [place], [address], 05/11/2023 12:21:10 05/11/19 24 05/11/2023 urina lysis panel , auto Unknown Analyte Negati ve Not Available [facility] [address], [place], [address], 05/11/2023 12:21:10 05/11/19 24 05/11/2023 urina lysis panel , auto Unknown Analyte Negati ve Not Available [facility] [address], [place], [address], 05/11/2023 12:21:10 05/11/19 24 05/11/2023 urina lysis panel , auto Unknown Analyte Negati ve Not Available [facility] [address], [place], [address], 05/11/2023 12:21:10 05/11/19 24 05/11/2023 urina lysis panel , auto Unknown Analyte Normal Not Available [facility] [address], [place], [address], 05/11/2023 12:21:10 05/11/19 24 05/11/2023 urina lysis panel , auto Unknown Analyte Normal Not Available [facility] [address], [place], [address], 05/11/2023 12:21:10 05/11/19 24 05/11/2023 urina lysis panel , auto Unknown Analyte 15 mg/dl (Sm) Not Available [facility] [address], [place], [address], 05/11/2023 12:21:10 05/11/19 24 05/11/2023 urina lysis panel , auto Unknown Analyte Negati ve Not Available [facility] [address], [place], [address], 05/11/2023 12:21:10 05/11/19 24 05/11/2023 urina lysis panel , auto Unknown Analyte 1 mg/dl Not Available [facility] [address], [place], [address], 05/11/2023 12:21:10 05/11/19 24 05/11/2023 urina lysis panel , auto Unknown Analyte Normal 1 mg/dl Not Available [facility] [address] [facility] [address], [place], [address], 05/11/2023 12:21:10 05/11/19 24 05/11/2023 urina lysis panel , auto Unknown Analyte Negati ve Not Available [facility] [address] [facility] [address] [facility] [address], [place], [address], 05/11/2023 12:21:10 05/11/19 24 05/11/2023 urina lysis panel , auto Unknown Analyte Negati ve Not Available [facility] [address] [facility] [address], [place], [address], 05/11/2023 12:21:10 05/11/19 24 05/11/2023 urina lysis panel , auto Unknown Analyte 250 Sera/ul Not Available [facility] [address] [facility] [address], [place], [address], 05/11/2023 12:21:10 05/11/19 24 05/11/2023 urina lysis panel , auto Unknown Analyte Negati ve Not Available [facility] [address] [facility], [place], [address], 05/11/2023 12:21:10 04/11/19 25 04/11/2024 SURGI LORETO [...] 17:44 Page 1 of 1 Not Available [facility] [address] [place] [address], [address], 04/12/2024 17:44:22 07/13/1907/12/2024 COMPL ETE BLOOD COUNT white blood cells 7.6 10*3/ uL 3.8-10 .8 normal Not Available [facility] [address] [place] [address], [address], 07/12/2024 18:57:35 07/13/19 25 07/12/2024 COMPL ETE BLOOD COUNT red blood cells 4.56 10*6/ uL 4.20-5 .80 normal Not Available [facility] [address] [place] [address], [address], 07/12/2024 18:57:35 07/13/19 25 07/12/2024 COMPL ETE BLOOD COUNT hemoglobin 14.0 g/dL 14.0-1 8.0 normal Not Available [facility] [address] [place] [address], [address], 07/12/2024 18:57:35 07/13/19 25 07/12/2024 COMPL ETE BLOOD COUNT hematocrit 41.3 % 40.0-5 2.0 normal Not Available [facility] [address] [place] [address], [address], 07/12/2024 18:57:35 07/13/1907/12/2024 COMPL ETE BLOOD COUNT MCV 91 fL 80-100 normal Not Available [facility] [address] [place] [address], [address], 07/12/2024 18:57:35 07/13/1907/12/2024 COMPL ETE BLOOD COUNT MCH 31 pg 26-35 normal Not Available [facility] [address] [place] [address], [address], 07/12/2024 18:57:35 07/13/19 25 07/12/2024 COMPL ETE BLOOD COUNT MCHC 34 g/dL 32-36 normal Not Available [facility] [address] [place] [address], [address], 07/12/2024 18:57:35 07/13/19 25 07/12/2024 COMPL ETE BLOOD COUNT RDW 14.6 % 11.0-1 5.0 normal Not Available [facility] [address] [place] [address], [address], 07/12/2024 18:57:35 07/13/19 25 07/12/2024 COMPL ETE BLOOD COUNT MPV 7.7 fL 6.2-10 .5 normal Not Available [facility] [address] [place] [address], [address], 07/12/2024 18:57:35 07/13/19 25 07/12/2024 COMPL ETE BLOOD COUNT platelet count 262 10*3/ uL 150-40 0 normal Not Available [facility] [address] [place] [address], [address], 07/12/2024 18:57:35 07/13/19 25 07/12/2024 COMPL ETE BLOOD COUNT neutrophil,a bsolute 4.0 10*3/ uL 1.6-8. 4 normal Not Available [facility] [address] [place] [address], [address], 07/12/2024 18:57:35 07/13/1907/12/2024 COMPL ETE BLOOD COUNT lymphocyte,a bsolute 2.3 10*3/ uL 0.4-5. 1 normal Not Available [facility] [address] [place] [address], [address], 07/12/2024 18:57:35 07/13/19 25 07/12/2024 COMPL ETE BLOOD COUNT monocyte,abs olute 0.8 10*3/ uL 0.0-1. 2 normal Not Available [facility] [address] [place] [address], [address], 07/12/2024 18:57:35 07/13/19 25 07/12/2024 COMPL ETE BLOOD COUNT eosinophil,a bsolute 0.4 10*3/ uL 0.0-0. 8 normal Not Available [facility] [address] [place] [address], [address], 07/12/2024 18:57:35 07/13/19 25 07/12/2024 COMPL ETE BLOOD COUNT basophil,abs olute 0.1 10*3/ uL 0.0-0. 3 normal Not Available [facility] [address] [place] [address], [address], 07/12/2024 18:57:35 07/13/19 25 07/12/2024 COMPL ETE BLOOD COUNT % neutrophils 52.9 % 42.0-7 8.0 normal Not Available [facility] [address] [place] [address], [address], 07/12/2024 18:57:35 07/13/19 25 07/12/2024 COMPL ETE BLOOD COUNT % lymphocytes 31.0 % 11.0-4 7.0 normal Not Available [facility] [address] [place] [address], [address], 07/12/2024 18:57:35 07/13/19 25 07/12/2024 COMPL ETE BLOOD COUNT % monocytes 10.0 % 0.0-11 .0 normal Not Available [facility] [address] [place] [address], [address], 07/12/2024 18:57:35 07/13/19 25 07/12/2024 COMPL ETE BLOOD COUNT % eosinophils 4.8 % 0.0-7. 0 normal Not Available [facility] [address] [place] [address], [address], 07/12/2024 18:57:35 07/13/19 25 07/12/2024 COMPL ETE BLOOD COUNT % basophils 1.3 % 0.0-3. 0 normal Not Available [facility] [address] [place] [address], [address], 07/12/2024 18:57:35 07/13/19 25 07/12/2024 COMPL ETE BLOOD COUNT nucleated red cells 0.0 % 0.0-0. 9 normal Not Available [facility] [address] [place] [address], [address], 07/12/2024 18:57:35 07/13/19 25 07/12/2024 COMPL ETE BLOOD COUNT nucleated RBCs, absolute 0.00 10*3/ uL not estab. normal Not Available [facility] [address] [place] [address], [address], 07/12/2024 18:57:35 07/13/19 25 07/12/2024 BASIC METAB OLIC PANEL glucose 150 mg/dL 74-100 high Not Available [facility] [address] [place] [address], [address], 07/12/2024 19:16:21 07/13/19 25 07/12/2024 BASIC METAB OLIC PANEL blood urea nitrogen 25 mg/dL 6-20 high Not Available [facility] [address] [place] [address], [address], 07/12/2024 19:16:21 07/13/19 25 07/12/2024 BASIC METAB OLIC PANEL creatinine 0.83 mg/dL 0.70-1 .20 normal Not Available [facility] [address] [place] [address], [address], 07/12/2024 19:16:21 07/13/19 25 07/12/2024 BASIC METAB OLIC PANEL BUN/creatini ne ratio 30 (calc ) 10-20 high Not Available [facility] [address] [place] [address], [address], 07/12/2024 19:16:21 07/13/19 25 07/12/2024 BASIC METAB OLIC PANEL sodium 139 mmol/ L 136-14 5 normal Not Available [facility] [address] [place], [address], 07/12/2024 19:16:21 07/13/19 25 07/12/2024 BASIC METAB OLIC PANEL potassium 4.3 mmol/ L 3.4-5. 0 normal Not Available [facility] [address] [place] [address], [address], 07/12/2024 19:16:21 07/13/19 25 07/12/2024 BASIC METAB OLIC PANEL chloride 102 mmol/ L 98-107 normal Not Available [facility] [address] [place] [address], [address], 07/12/2024 19:16:21 07/13/19 25 07/12/2024 BASIC METAB OLIC PANEL carbon dioxide 24 mmol/ L 22-31 normal Not Available [facility] [address] [place] [address], [address], 07/12/2024 19:16:21 07/13/19 25 07/12/2024 BASIC METAB OLIC PANEL anion gap 13 (calc ) 7-25 normal Not Available [facility] [address] [place] [address], [address], 07/12/2024 19:16:21 07/13/19 25 07/12/2024 BASIC METAB OLIC PANEL calcium 9.4 mg/dL 8.6-10 .2 normal Not Available [facility] [address] [place] [address], [address], 07/12/2024 19:16:21 07/13/19 25 07/12/2024 BASIC METAB [...] s/KDO QI/gf r_cal culat orPed Not Available [facility] [address] [place], [address], 07/12/2024 19:16:21 07/13/19 25 07/12/2024 URINE CULTU RE enterobacter cloacae Organi sm: Entero bacter cloaca e Not Available [facility] [address] [place], [address], 07/15/2024 12:44:59 07/13/1907/15/2024 URINE CULTU RE urine culture abnormal ISOLA TE #1 COLON Y COUNT : 2,000 CFU/M L Proba ble Gram Negat esthela Bacil masood. ID and sensi tivit y in progr ess. See [place] te Resul t(s) Below Enter obact er cloac ae Not Available [facility] [address] [place], [address], 07/15/2024 12:44:59 07/13/1907/15/2024 URINE CULTU RE ceftazidime <=1 ug/mL susceptib le Not Available [facility] [address] [place], [address], 07/15/2024 12:44:59 07/13/1907/15/2024 URINE CULTU RE ceftriaxone <=1 ug/mL susceptib le Not Available [facility] [address] [place], [address], 07/15/2024 12:44:59 07/13/1907/15/2024 URINE CULTU RE ciprofloxaci n <=0.25 ug/mL susceptib le Not Available [facility] [address] [place], [address], 07/15/2024 12:44:59 07/13/1907/15/2024 URINE CULTU RE gentamicin <=4 ug/mL susceptib le Not Available [facility] [address] [place] [address], [address], 07/15/2024 12:44:59 07/13/19 25 07/15/2024 URINE CULTU RE imipenem <=1 ug/mL susceptib le Not Available [facility] [address] [place] [address], [address], 07/15/2024 12:44:59 07/13/19 25 07/15/2024 URINE CULTU RE levofloxacin <=0.5 ug/mL susceptib le Not Available [facility] [address] [place] [address], [address], 07/15/2024 12:44:59 07/13/19 25 07/15/2024 URINE CULTU RE nitrofuranto in 64 ug/mL intermedi ate Not Available [facility] [address] [place] [address], [address], 07/15/2024 12:44:59 07/13/19 25 07/15/2024 URINE CULTU RE piperacillin /kemi <=16 ug/mL susceptib le Not Available [facility] [address] [place] [address], [address], 07/15/2024 12:44:59 07/13/19 25 07/15/2024 URINE CULTU RE tetracycline <=4 ug/mL susceptib le Not Available [facility] [address] [place] [address], [address], 07/15/2024 12:44:59 07/13/19 25 07/15/2024 URINE CULTU RE tobramycin <=2 ug/mL susceptib le Not Available [facility] [address] [place] [address], [address], 07/15/2024 12:44:59 07/13/19 25 07/15/2024 URINE CULTU RE trimeth/sulf a <=2/38 ug/mL susceptib le Not Available [facility] [address] [facility], [place], [address], 07/15/2024 12:44:59 07/13/1907/12/2024 urina lysis panel , auto Unknown Analyte Clean Catch Not Available [facility] [address], [place], [address], 07/12/2024 13:57:15 07/13/19 25 07/12/2024 urina lysis panel , auto Unknown Analyte [place] Not Available [facility] [address], [place], [address], 07/12/2024 13:57:15 07/13/19 25 07/12/2024 urina lysis panel , auto Unknown Analyte Clear Not Available [facility] [address], [place], [address], 07/12/2024 13:57:15 07/13/19 25 07/12/2024 urina lysis panel , auto Unknown Analyte 1.025 Not Available [facility] [address], [place], [address], 07/12/2024 13:57:15 07/13/19 25 07/12/2024 urina lysis panel , auto Unknown Analyte 1.003 - 1.030 Not Available [facility] [address], [place], [address], 07/12/2024 13:57:15 07/13/19 25 07/12/2024 urina lysis panel , auto Unknown Analyte 5.0 Not Available [facility] [address], [place], [address], 07/12/2024 13:57:15 07/13/19 25 07/12/2024 urina lysis panel , auto Unknown Analyte 5.0 - 8.0 Not Available [facility] [address], [place], [address], 07/12/2024 13:57:15 07/13/19 25 07/12/2024 urina lysis panel , auto Unknown Analyte 25 Elvia/uL Not Available [facility] [address], [place], [address], 07/12/2024 13:57:15 07/13/19 25 07/12/2024 urina lysis panel , auto Unknown Analyte Negati ve Not Available [facility] [address], [place], [address], 07/12/2024 13:57:15 07/13/19 25 07/12/2024 urina lysis panel , auto Unknown Analyte POSITI VE (Abnor mal) Not Available [facility] [address], [place], [address], 07/12/2024 13:57:15 07/13/19 25 07/12/2024 urina lysis panel , auto Unknown Analyte Negati ve Not Available [facility] [address], [place], [address], 07/12/2024 13:57:15 07/13/19 25 07/12/2024 urina lysis panel , auto Unknown Analyte 30 mg/dL Not Available [facility] [address], [place], [address], 07/12/2024 13:57:15 07/13/19 25 07/12/2024 urina lysis panel , auto Unknown Analyte Negati ve Not Available [facility] [address], [place], [address], 07/12/2024 13:57:15 07/13/19 25 07/12/2024 urina lysis panel , auto Unknown Analyte Normal Not Available [facility] [address], [place], [address], 07/12/2024 13:57:15 07/13/19 25 07/12/2024 urina lysis panel , auto Unknown Analyte Normal Not Available [facility] [address], [place], [address], 07/12/2024 13:57:15 07/13/19 25 07/12/2024 urina lysis panel , auto Unknown Analyte Negati ve Not Available [facility] With [facility] [address], [place], [address], 07/12/2024 13:57:15 07/13/19 25 07/12/2024 urina lysis panel , auto Unknown Analyte Negati ve Not Available [facility] [address], [place], [address], 07/12/2024 13:57:15 07/13/19 25 07/12/2024 urina lysis panel , auto Unknown Analyte 4 mg/dL Not Available [facility] [address], [place], [address], 07/12/2024 13:57:15 07/13/19 25 07/12/2024 urina lysis panel , auto Unknown Analyte Normal Not Available [facility] [address], [place], [address], 07/12/2024 13:57:15 07/13/19 25 07/12/2024 urina lysis panel , auto Unknown Analyte 1 mg/dL Not Available [facility] [address] [place] [address] [address], [place], [address], 07/12/2024 13:57:15 07/13/19 25 07/12/2024 urina lysis panel , auto Unknown Analyte Negati ve Not Available [facility] With [address], [place], [address], 07/12/2024 13:57:15 07/13/19 25 07/12/2024 urina lysis panel , auto Unknown Analyte 50 Sera/uL Not Available [facility] [address] [place] [address] [address], [place], [address], 07/12/2024 13:57:15 07/13/19 25 07/12/2024 urina lysis panel , auto Unknown Analyte Negati ve Not Available [facility] [address] [place] [address] [address], [place], [address], 07/12/2024 13:57:15 07/27/19 25 07/26/2024 PTH, INTAC [...] ===== ===== ===== ===== ==== Not Available [facility] [address] [place] [address], [address], 07/26/2024 15:20:55 07/27/19 25 07/26/2024 PTH, INTAC T WITH CA calcium 9.5 mg/dL 8.6-10 .2 normal Not Available [facility] [address] [place] [address], [address], 07/26/2024 15:20:55 07/27/19 25 07/26/2024 UROLO GY CUSTO M PANEL glucose 104 mg/dL 74-100 high Not Available [facility] [address] [place] [address], [address], 07/26/2024 15:10:06 07/27/19 25 07/26/2024 UROLO GY CUSTO M PANEL blood urea nitrogen 20 mg/dL 6-20 normal Not Available [facility] [address] [place] [address], [address], 07/26/2024 15:10:06 07/27/19 25 07/26/2024 UROLO GY CUSTO M PANEL creatinine 0.89 mg/dL 0.70-1 .20 normal Not Available [facility] [address] [place] [address], [address], 07/26/2024 15:10:06 07/27/19 25 07/26/2024 UROLO GY CUSTO M PANEL BUN/creatini ne ratio 22 (calc ) 10-20 high Not Available [facility] [address] [place] [address], [address], 07/26/2024 15:10:06 07/27/19 25 07/26/2024 UROLO GY CUSTO M PANEL sodium 140 mmol/ L 136-14 5 normal Not Available [facility] [address] [place] [address], [address], 07/26/2024 15:10:07/27/19 25 07/26/2024 UROLO GY CUSTO M PANEL potassium 4.7 mmol/ L 3.4-5. 0 normal Not Available [facility] [address] [place] [address], [address], 07/26/2024 15:10:07/27/19 25 07/26/2024 UROLO GY CUSTO M PANEL chloride 104 mmol/ L 98-107 normal Not Available [facility] [address] [place] [address], [address], 07/26/2024 15:10:07/27/19 25 07/26/2024 UROLO GY CUSTO M PANEL carbon dioxide 25 mmol/ L 22-31 normal Not Available [facility] [address] [place] [address], [address], 07/26/2024 15:10:07/27/19 25 07/26/2024 UROLO GY CUSTO M PANEL anion gap 11 (calc ) 7-25 normal Not Available [facility] [address] [place] [address], [address], 07/26/2024 15:10:07/27/19 25 07/26/2024 UROLO GY CUSTO M PANEL calcium 9.6 mg/dL 8.6-10 .2 normal Not Available [facility] [address] [place] [address], [address], 07/26/2024 15:10:07/27/19 25 07/26/2024 UROLO GY CUSTO M PANEL phosphorus 4.2 mg/dL 2.5-4. 5 normal Not Available [facility] [address] [place] [address], [address], 07/26/2024 15:10:07/27/19 25 07/26/2024 UROLO GY CUSTO [...] mstan fela. Arthr itis Care and Resea [facility] Vol 64 No 10, 2011 Arabella traore Colle ge of Rheum atolo gy ----- ----- ----- ----- ----- ----- ----- ----- ----- ----- ----- ---- Not Available [facility] [address] [place], [address], 07/26/2024 15:10:06 07/27/19 25 07/26/2024 UROLO GY [...] s/KDO QI/gf r_cal culat orPed Not Available [facility] [address] [place], [address], 07/26/2024 15:10:06 07/27/19 25 07/29/2024 STONE GUERRERO SIS composition SEE NOTE normal Calci um Oxala te Dihyd rate (Wedd ellit e) 95% Calci um Oxala te Monoh ydrat e (Whew ellit e) 5% Not Available [facility] [address] [place], [address], 07/29/2024 01:34:05 07/27/19 25 07/29/2024 STONE GUERRERO [...] cteri stics have been deter mined by [employer], an [employer] ostic s. It has not been clear ed or appro juan by the FDA. This assay has been valid ated pursu ant to the CLIA regul ation s and is used for clini loreto purpo ses. Not Available [facility] [address] [facility], [place], [address], 07/29/2024 01:34:05 07/27/19 25 07/26/2024 urina lysis panel , auto Unknown Analyte Clean Catch Not Available [facility] [address], [place], [address], 07/26/2024 09:12:37 07/27/19 25 07/26/2024 urina lysis panel , auto Unknown Analyte Straw Not Available [facility] [address] [place] [address] [address], [place], [address], 07/26/2024 09:12:37 07/27/19 25 07/26/2024 urina lysis panel , auto Unknown Analyte Clear Not Available [facility] [address], [place], [address], 07/26/2024 09:12:37 07/27/19 25 07/26/2024 urina lysis panel , auto Unknown Analyte 1.025 Not Available [facility] [address], [place], [address], 07/26/2024 09:12:37 07/27/1907/26/2024 urina lysis panel , auto Unknown Analyte 1.003 - 1.030 Not Available [facility] [address], [place], [address], 07/26/2024 09:12:37 07/27/19 25 07/26/2024 urina lysis panel , auto Unknown Analyte 5.0 Not Available [facility] [address], [place], [address], 07/26/2024 09:12:37 07/27/1907/26/2024 urina lysis panel , auto Unknown Analyte 5.0 - 8.0 Not Available [facility] [address], [place], [address], 07/26/2024 09:12:37 07/27/19 25 07/26/2024 urina lysis panel , auto Unknown Analyte Negati ve Not Available [facility] [address], [place], [address], 07/26/2024 09:12:37 07/27/19 25 07/26/2024 urina lysis panel , auto Unknown Analyte Negati ve Not Available [facility] [address], [place], [address], 07/26/2024 09:12:37 07/27/19 25 07/26/2024 urina lysis panel , auto Unknown Analyte Negati ve Not Available [facility] [address], [place], [address], 07/26/2024 09:12:37 07/27/19 25 07/26/2024 urina lysis panel , auto Unknown Analyte Negati ve Not Available [facility] [address], [place], [address], 07/26/2024 09:12:37 07/27/19 25 07/26/2024 urina lysis panel , auto Unknown Analyte Negati ve Not Available [facility] [address], [place], [address], 07/26/2024 09:12:37 07/27/19 25 07/26/2024 urina lysis panel , auto Unknown Analyte Negati ve Not Available [facility] [address], [place], [address], 07/26/2024 09:12:37 07/27/19 25 07/26/2024 urina lysis panel , auto Unknown Analyte Normal Not Available [facility] [address], [place], [address], 07/26/2024 09:12:37 07/27/1907/26/2024 urina lysis panel , auto Unknown Analyte Normal Not Available [facility] [address], [place], [address], 07/26/2024 09:12:37 07/27/19 25 07/26/2024 urina lysis panel , auto Unknown Analyte Negati ve Not Available [facility] [address], [place], [address], 07/26/2024 09:12:37 07/27/1907/26/2024 urina lysis panel , auto Unknown Analyte Negati ve Not Available [facility] [address], [place], [address], 07/26/2024 09:12:37 07/27/1907/26/2024 urina lysis panel , auto Unknown Analyte 1 mg/dL Not Available [facility] [address], [place], [address], 07/26/2024 09:12:37 07/27/1907/26/2024 urina lysis panel , auto Unknown Analyte Normal Not Available [facility] [address], [place], [address], 07/26/2024 09:12:37 07/27/1907/26/2024 urina lysis panel , auto Unknown Analyte Negati ve Not Available [facility] [address], [place], [address], 07/26/2024 09:12:37 07/27/1907/26/2024 urina lysis panel , auto Unknown Analyte Negati ve Not Available [facility] [address], [place], [address], 07/26/2024 09:12:37 07/27/19 25 07/26/2024 urina lysis panel , auto Unknown Analyte Negati ve Not Available [facility] [address], [place], [address], 07/26/2024 09:12:37 07/27/1907/26/2024 urina lysis panel , auto Unknown Analyte Negati ve Not Available [facility] [address], [place], [address], 07/26/2024 09:12:37 08/05/1908/26/2024 LITHO LINK 24HR URINE PANEL cystine, urine, qualitative Neg negati ve Not Available [facility] ([facility]) [address] [facility], [place], [address], 08/29/2024 11:21:25 08/05/19 25 08/26/2024 LITHO LINK 24HR URINE PANEL urine volume (preserved) 1810 mL/24 _HR 500-40 00 Not Available [facility] ([facility]) [address] [place], [address], 08/29/2024 11:21:25 08/05/19 25 08/26/2024 LITHO LINK 24HR URINE PANEL calcium oxalate saturation 12.12 6.00-1 0.00 above high normal Not Available [facility] ([facility]) [address] [facility], [place], [address], 08/29/2024 11:21:25 08/05/19 25 08/26/2024 LITHO LINK 24HR URINE PANEL calcium, urine 403 mg/24 _HR <250 above high normal Not Available [facility] ([facility]) [address] [place], [address], 08/29/2024 11:21:25 08/05/19 25 08/26/2024 LITHO LINK 24HR URINE PANEL oxalate, urine 60 mg/24 _HR 20-40 above high normal Not Available [facility] ([facility]) [address] [place], [address], 08/29/2024 11:21:25 08/05/19 25 08/26/2024 LITHO LINK 24HR URINE PANEL citrate, urine 1291 mg/24 _HR >450 Not Available [facility] ([facility]) [address] [place], [address], 08/29/2024 11:21:25 08/05/19 25 08/26/2024 LITHO LINK 24HR URINE PANEL calcium phosphate saturation 1.02 0.50-2 .00 Not Available [facility] ([facility]) [address] [place], [address], 08/29/2024 11:21:25 08/05/19 25 08/26/2024 LITHO LINK 24HR URINE PANEL pH, 24 HR, urine 5.463 5.800- 6.200 below low normal Not Available [facility] ([facility]) [address] [place], [address], 08/29/2024 11:21:25 08/05/19 25 08/26/2024 LITHO LINK 24HR URINE PANEL uric acid saturation 1.64 <1.00 above high normal Not Available [facility] ([facility]) [address] [place], [address], 08/29/2024 11:21:25 08/05/19 25 08/26/2024 LITHO LINK 24HR URINE PANEL uric acid, urine 630 mg/24 _HR <800 Not Available [facility] ([facility]) [address] [place], [address], 08/29/2024 11:21:25 08/05/19 25 08/26/2024 LITHO LINK 24HR URINE PANEL sodium, urine 281 mmol/ 24_HR 50-150 above high normal Not Available [facility] ([facility]) [address] [place], [address], 08/29/2024 11:21:25 08/05/19 25 08/26/2024 LITHO LINK 24HR URINE PANEL potassium, urine 113 mmol/ 24_HR 20-100 above high normal Not Available [facility] ([facility]) [address] [place], [address], 08/29/2024 11:21:25 08/05/19 25 08/26/2024 LITHO LINK 24HR URINE PANEL magnesium, urine 178 mg/24 _HR 30-120 above high normal Not Available [facility] ([facility]) [address] [place], [address], 08/29/2024 11:21:25 08/05/19 25 08/26/2024 LITHO LINK 24HR URINE PANEL phosphorus, urine 1932 mg/24 _HR 600-12 00 above high normal Not Available [facility] ([facility]) [address] [place], [address], 08/29/2024 11:21:25 08/05/19 25 08/26/2024 LITHO LINK 24HR URINE PANEL ammonium, urine 52 mmol/ 24_HR 15-60 Not Available [facility] ([facility]) [address] [place], [address], 08/29/2024 11:21:25 08/05/19 25 08/26/2024 LITHO LINK 24HR URINE PANEL chloride, urine 321 mmol/ 24_HR 70-250 above high normal Not Available [facility] ([facility]) [address] [place], [address], 08/29/2024 11:21:25 08/05/19 25 08/26/2024 LITHO LINK 24HR URINE PANEL sulfate, urine 61 mEq/2 4_HR 20-80 Not Available [facility] ([facility]) [address] [place], [address], 08/29/2024 11:21:25 08/05/19 25 08/26/2024 LITHO LINK 24HR URINE PANEL urea nitrogen, urine 15.60 g/24_ HR 6.00-1 4.00 above high normal Not Available [facility] ([facility]) [address] [place], [address], 08/29/2024 11:21:25 08/05/19 25 08/26/2024 LITHO LINK 24HR URINE PANEL protein catabolic rate 1.2 g/kg/ 24_HR 0.8-1. 4 Not Available [facility] ([facility]) [address] [facility], [place], [address], 08/29/2024 11:21:25 08/05/19 25 08/26/2024 LITHO LINK 24HR URINE PANEL creatinine, urine 2382 mg/24 _HR not applic . Not Available [facility] ([facility]) [address] [facility], [place], [address], 08/29/2024 11:21:25 08/05/19 25 08/26/2024 LITHO LINK 24HR URINE PANEL creatinine/k g body weight 23.9 mg/24 _HR/k g 11.9-2 4.4 Not Available [facility] ([facility]) [address] [place], [address], 08/29/2024 11:21:25 08/05/19 25 08/26/2024 LITHO LINK 24HR URINE PANEL calcium/kg body weight 4.0 mg/24 _HR/k g <4.0 Not Available [facility] ([facility]) [address] [place], [address], 08/29/2024 11:21:25 08/05/19 25 08/26/2024 LITHO LINK 24HR URINE PANEL calcium/crea tinine ratio 169 mg/g_ creat 34-196 Not Available [facility] ([facility]) [address] [facility], [place], [address], 08/29/2024 11:21:25 08/05/19 25 08/26/2024 LITHO LINK 24HR URINE PANEL comment Note This repor t has been resen t due to a misco nfigu ratio n that led to the enhan tsefani repor t not being gener ated. This issue has been resol juan for futur e acces sions . No resul ts were affec yoandy or adam ed. Not Available [facility] ([facility]) [address] [facility], [place], [address], 08/29/2024 11:21:25 12/15/19 24 12/15/2023 MRI, cervi loreto spine , w/o contr ast [facility] [address] [facility] [place] [address] Patien t Name: TAY THOMAS Patien t : 952 Patien t Orderi ng Provid er: LUCHO ANN EXAM DATE: 2023 EXAM: MR CERVIC AL W/O CONTRA ST HISTOR Y: 68-yea r-old male with parest hesia in his neck and left arm. COMPAR LITZY: CT dated 023 FINDIN GS: There is diffus e straig htenin g of the cervic al spine. There is minima l anteri or listhe sis of C4 on C5 and inspector final assembly conveyor line ior listhe sis of C5 on C6. There is no fractu re or pathol ogic intrao sseous lesion . There is severe anteri or margin al osteop hytic spurri ng. No parasp inous soft tissue abnorm ality is identi fied. The visual ized spinal cord and inspector final assembly conveyor line ior fossa of the brain are normal [...] Taylor alcantara MD on 2023 5:06 PM [facility] Radiology [facility] [address] [facility], [place], [address], 01/27/2024 16:57:41 10/12/15/2023 MRI, lumba r spine , w/o contr ast [facility] [address] [facility] [place] [address] Gerald lozada Name: TAY lozada : 89 Patiryan lozada Orderi ng Provid er: NOEL Leon [...] is prior discec vivi, interb finn graft, inspector final assembly conveyor line ior fusion and cliff ctomy at L4-L5. There is parama gnetic artifa ct from the pedicl e screws , inspector final assembly conveyor line ior fusion hardwa re and interb finn [...] alcantara MD on 2023 7:09 AM [email or web address] [facility] [address], [address], 01/04/2024 08:05:34 12/16/19 24 12/15/2023 CT, lumba r spine , w/o contr ast [address] [address] Patien t Name: TAY lozada : 89 Patiryan [...] is prior discec vivi, interb finn graft, inspector final assembly conveyor line ior fusion and cliff ctomy at L4-L5. There is beam harden ing artifa ct from the pedicl e screws , inspector final assembly conveyor line ior fusion hardwa re and interb finn spacer . There is no eviden ce of loosen ing of the hardwa re or hardwa re failur e. There is mild levocu rvatur e from L1 throug h L3 and mild dextro curvat ure from L3 throug h L5. There is minima l inspector final assembly conveyor line ior listhe sis of L1 on L2 [...] There is bridgi ng bone in the inspector final assembly conveyor line ior elemen ts. There is severe left [...] alcantara MD on 2023 7:12 AM [email or web address] [facility] [address] [facility], [place], [address], 01/04/2024 08:05:33 07/13/19 25 07/12/2024 XR, abdom en, 1 view No observ ation record ed. [email or web address] Not Available 06/17 20:13:39 07/13/19 25 07/12/2024 CT, abdom en + pelvi s, w/o contr ast [facility] [address] [place] [address] [place] [address] Patien t Name: TAY THOMAS Patiryan t : 952 Patien t Orderi ng [...] Ward Trejo MD on 025 2:57 PM [email or web address] [facility]iology [facility] [address] [place] [address], [address], 07/13/2024 18:43:42 Result Notes Documentation Provider Name and Address Organization Details Recorded Time Mri, Cervical Spine, W/o Contrast : [facility] [address] [place] [address] Patient Name: TAY THOMAS Patient : 1955 [...] By: Vlad Bryant MD O ANN PA-C [address] [place] [address], [phone] [place] [address] 01/27/2024 16:57:41 Mri, Lumbar Spine, W/o Contrast : [place] [address] Patient Name: TAY THOMAS Patient : 1955 [...] Interpreted By: Vlad Bryant MD BARFIELD MD [address] [place] [address], [address], [facility] 01/04/2024 08:05:34 Ct, Lumbar Spine, W/o Contrast : [facility] [address] [place] [address] Patient Name: TAY THOMAS Patient : 1955 [...] Interpreted By: Vlad Bryant MD BARFIELD MD [address] [place] [address], [phone] 01/04/2024 08:05:33 Ct, Abdomen + Pelvis, W/o Contrast : [place] [id number] Patient Name: TAY THOMAS Patient : 1955 [...] Interpreted By: Ward Trejo MD LEPE MD [address] [place] [address], [address], [facility] 07/13/2024 18:43:42 Problems No Known Problems Procedures Surgical History Date Name Laterality Status Provider Name and Address Organization Details Recorded Time 07/13/19 Post Void Residual; Ultrasound completed Joy Stone [facility] 07/12/2024 13:54:08 04/11/19 25 Biopsy Skin Lesion; Tangential [facility] 14:41:10 04/11/19 25 Injection, Intralesional completed DUGLAS BASURTO MD [address] [place] [address], [address] 04/11/2024 18:30:27 04/11/19 25 Destruction Premalignant Lesion(s) completed [facility] 04/11/2024 14:44:27 01/29/20 23 Lumbar Epidural Steroid Injection - Parth completed PERI CANTOR MD [address] [place] [address], [address], [facility] 01/28/2023 14:14:59 09/10/19 23 Cervical MBB 2 level - Parth completed PERI CANTOR MD [address] [place] [address], [address], [facility] 09/09/2022 16:11:18 08/16/19 23 Cervical MBB 2 level - Parth completed PERI CANTOR MD [address] [place] [address], [address], [facility] 08/15/2022 15:23:46 05/04/19 23 Back Surgery completed Alana Streeter [facility] 07/16/2022 08:57:41 04/30/19 18 Shave Lesion; trunk, arm, leg completed MARIA DEL ROSARIO ODOM MD [address] [place], [address], [facility] 04/30/2017 22:32:02 04/30/19 18 Destruction BN Lesions completed Aylin Toussaint [facility] 04/29/2017 08:43:13 Orthopedic Surgery completed Balta Pérez [facility] 11/03/2016 13:55:36 Imaging Results None recorded. Procedure Notes None recorded. Medical Equipment None Reported. Allergies Allergen ID Allergen Name Allergen Category Reaction Reaction Severity Criticality Documentation Date Start Date Code Code System Note Provider Name and Address Organization Details Recorded Time 528704 lisinopri l medicatio n facial swelling Not available Not available 07/16/2022 74455 RxNorm [facility] 08:45[facility]16 Medications Name Sig Start [...] Updated DateTime 07/12/2024 185.42 cm 29 kg/m2 46233.32 g Joy Lama [facility] 07/12/2024 13:49:16 Date Recorded Body height Body mass index (BMI) Body weight Provider Name and Address Organization Details Last Updated DateTime 07/26/2024 185.42 cm 29 kg/m2 02152.32 g Betsy Rosa [facility] [facility]24 08:49:59 Date Recorded Body height Body mass index (BMI) Body weight Systolic And Diastolic Provider Name and Address Organization Details Last Updated DateTime 11/23/2023 185.42 cm 32.3 kg/m2 610130.13 g 120/82 mm[Hg] Dalila Lebronholz [facility] 11/23/2023 09:06:44 Social History Question Answer Notes LastModified by Organizat ion Details LastModified Time Tobacco Smoking Status Current Some Day [facility] 11/03/2016 13:55:22 How Much Tobacco Do You Chew? None [email or web address] Information not available 07/30/2020 Marital Status [email or web address] Informatio n not available 07/30/2020 What Was The Date Of Your Most Recent Tobacco Screening? 07/26/2024 Information not available 07/26/2024 How Much Tobacco Do You Smoke? No [email or web address] Information not available 07/16/2022 Sex: Male Functional Status Question Answer Note LastModified by Organizat ion Details LastModified Time Do you or have you ever used any other forms of tobacco or nicotine? No [email or web address] Information not available 07/16/2022 What is your level of alcohol consumption? Occasional [email or web address] Information not available 07/30/2020 Are you currently employed? No [email or web address] Information not available 07/16/2022 Do you or have you ever used e-cigarettes or vape? Never used electronic cigarettes [email or web address] Information not available 07/30/2020 What is your exercise level? Heavy [email or web address] Information not available 07/16/2022 Mental Status None recorded. Family History Relationship Description Onset Age of this Age Resolved Age Notes LastModified by Organization Details LastModified Time Father Heart disease [email or web address] Not available 07/16 08:46:24 Brother Heart disease Not available 07/16 08:46:24 Paternal Grandfather Heart disease [email or web address] Not available 07/16 08:46:35 Medical History Condition [...] N Immune System Disorder N Heart Attack (NE) Y Other Skin Condition N Mental Illness [...] SNOMED-CT Code Diagnosis ICD10 Code Diagnosis Note [id number] BENJAMIN PENDLETON MD [facility] [address] [place] [address] 11/03/2016 13:45:25 11/03/2016 16:50:35 Knee pain 02391311 M25.562 Mr Thomas has a fmeniscus root tear and early medial compartmen t overload. I recommend restricted weight bearing and a course of NSAIDs. [id number] BENJAMIN PENDLETON MD [facility] [address] [place] [address] 11/17/2016 09:18:10 12/15/2016 07:32:42 Knee pain 87244978 M25.562 Mr Thomas has a meniscus root tear and early medial compartmen t overload. I recommend restricted weight bearing, weight loss and wean from diclofenac . 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 I recommend activity modificati on and an exercise program. [id number] MD FIDEL JONES [facility] [address] [place] [address] 07/30/2020 10:31:55 07/30/2020 11:24:51 Ureteric stone 11621208 N20.[address] scan with the findings as above. Plan as above. [id number] AREN BARFIELD MD NEUROSURG [facility] CL[facility] [address] [place] [address] 05/19/2022 09:50:13 06/03/2022 04:46:23 [id number] AREN BARFIELD MD SURGERY SCHEDULE [address] [place] [address] 05/23/2022 09:05:55 05/23/2022 10:51:10 [id number] [facility] [address] [place] [address] 06/09/2022 08:55:00 06/10/2022 04:47:18 Postoperative care 868470090 Z48.89 [id number] PERI CANTOR MD PAIN MEDICINE CLOSED [address] [place] [address] 07/16/2022 08:33:20 07/16/2022 16:07:09 Displacement of cervical intervertebral disc without myelopathy 65525585 M50.20 Degenerati on of cervical intervertebral disc 05645858 M50.30 Cervical spondylosis 387 877185 M47.812 [id number] ANY KILPATRICK PA-C NE[facility]OSURG [facility] CLOS[facility] [address] [place] [address] 09/25/2022 13:04:15 09/26/2022 04:37:05 Postoperative care 796241702 Z48.89 [id number] PERI CANTOR MD [facility] PROFESSIO NAL CHARGES [address] [place] [address] [address] [place] [address] 08/15/2022 13:40:34 08/15/2022 15:57:04 Cervical spondylosis 557685637 M47.812 [id number] PERI CANTOR MD ESC [facility] PROFESSIO NAL CHARGES [address] [place] [address] 1 09/09/2022 14:42:39 09/09/2022 16:28:31 Cervical spondylosis 871468080 M47.812 [id number] SUMMER GONZALEZ APRN NEUROSURG SERA [facility] [address] [place] [address] 12/18/2022 12:45:42 12/19/2022 04:41:53 Lumbar radiculopathy 041963629 M54.16 Lumbar spondylosis 88861 0009 M47.896 History of lumbar fusion 0927401080 9106 Z98.1 [id number] PERI CANTOR MD PAIN MEDICINE CLOSED [address] [place] [address] 01/28/2023 13:19:54 01/28/2023 16:07:52 Degeneration of lumbar intervertebral disc 64866620 M51.36 Lumbar radiculopathy 128 329939 M54.16 [id number] PERI CANTOR MD [facility] PL[facility] OF SERVICE PROFESSIO NAL CHARGES [address] [facility], [address] [place] [address] 01/28/2023 14:06:41 01/28/2023 14:29:56 Lumbar radiculopathy 596706620 M54.16 [id number] VLAD LEPE MD [facility] [address] [address] 05/11/2023 11:50:55 05/11/2023 13:08:17 Urolithiasis 77706652 N20.9 Plan as above will arrange for bilateral ureterosco py and laser of stones possible stent placement [id number] AREN BARFIELD MD SURGERY SCHEDULE [address] [place] [address] 06/16/2023 08:07:40 06/18/2023 09:19:49 [id number] LUCHO ANN PA-C NE[facility]OSURG [facility] CLOSED [address] [place] [address] 11/23/2023 09:02:39 11/24/2023 04:46:06 Lumbar radiculopathy 986931241 M54.16 Cervical radiculopathy 60311311 M54.12 Low back pain 415338615 M54.50 [id number] DUGLAS BASURTO MD DERMATOLO GY [address] [place] [address] 04/11/2024 13:49:58 04/11/2024 16:09:51 Solar lentigo 26284372 L81.4 Benign Reassuranc eRecommend ed sun protective clothing and a mineral based sunscreen 30 SPF or higher lotion OTC daily Raised ebenezer orrheic keratosis 5704204531 79475 L82.1 Benign Reassuranc e Hemangioma 099953853 D18 .00 Benign Reassuranc e Multiple b enign melanocytic nevi 851902129 D22.9 Benign Reassuranc e History of squamous cell carcinoma of skin 143734934 Z85.828 Well-heale d scar History of Malignant melanoma 258734661 Z85.89 Well-heale d scar Actinic keratosis L57.0 Education then treated with LN; pt tolerated well advised pt what to expect with freezing Cyst of skin 287782970 L 72.9 Injected with kenalog 2mg/cc, total of 0.1cc injectedND C#: [id number] 20Lot #:[id number] xp: 05/2025 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 99679317 D48.5 A.) Right proximal thigh r/o lentigo vs lentigo malignaB.) Right distal thigh r/o lentigo vs lentigo malignasha ve biopsy performeds ent for pathsee procedure [facility] care instructio radha providedpa tient consents for procedure and photo monitoring [id number] JAIME THOMAS CUA, [facility] [address],[place] [address] 07/12/2024 13:17:09 07/12/2024 14:30:00 Urolithiasis 18614662 N20.9 History of Disorder 3128 [address]48[address] Z87.898 Recurrent urinary tract infection 113902984 N39.0 Recurrent kidney stone 4356202108 620938 N20.0 Chill 98446326 R68.83 Flank pain 601033059 R10 .9 Z87.442 Kidney stone 40454000 N2 0.0 Acute urin ermelinda tract infection 683744536 N39.0 [id number] JAIME THOMAS CUA, [facility] [address] [place] [address] 07/26/2024 08:34:35 07/26/2024 09:22:25 Urolithiasis 80884053 N20.9 Flank pain 496441478 R10 .9 Z87.442 History of Disorder 3128 78199 Z87.898 Recurrent urinary tract infection 752520855 N39.0 Recurrent kidney stone 1493097320 778112 N20.0 Kidney stone 85636401 N2 0.0 Acute urin ermelinda tract infection 290706144 N39.0 Health Concerns Section Related Observation LastModified by Organization Detai ls LastModified Time None Recorded Concern Status LastModified by Organization Details LastModified Time None Recorded Advance Directives Directive None Recorded Payers Insurance Date Sequence Insurance Name Policy Number Policy Huang Covered Member ID Huang Member ID Guarantor Name 07/19/2024 1 [place] Tay Thomas [id number] Tay Thomas 07/19/2024 1 [place] [id number] Tay Thomas [id number] Tay Thomas 07/30/2020 1 [place] [id number] Kelsie Thomas [id number] Tay Thomas 07/19/2024 1 [place] [id number] Tay Thomas [id number] Tay Thomas 09/05/2024 1 [place] Tay Thomas [id number] Tay Thomas 09/05/2024 2 AARP (MEDICARE SUPPLEMENT) Tay Thomas [id number] Tay Thomas Notes Date Note Type Note [...] in clinic today. LUCHO ANN PA-C [address] [place], [address], [facility] 11/23/2023 09:43:39 04/11/2024 text/html New patient- Khalida yadav referred LUCAS with Dr. Maharaj 68 y/o [...] of malignant melanoma. DUGLAS BASURTO MD [address] [place], [address], [facility] 04/11/2024 18:33:13 07/12/2024 text/html The patient is [...] radiologist reading pending. DEVIN PUENTE PA-C [address] [place], [address], [facility] 07/12/2024 20:02:52 07/26/2024 text/html The patient is [...] producing/passing stones. DEVIN PUENTE PA-C [address] [place], [address], [facility] 07/26/2024 13:03:01
--- OUTSIDE RECORDS SUMMARY | 2024-09-05 11:17 | XMS_ITS | Encounter Summary ---
Author Organization [employer] ([place], [place], [place], [place]) Address [address] [place] [address] Care Team Providers Care Java Web Engineer Name Role Phone Emily Estrada Primary Care Provider Unavail able [facility], Provider Not In The System Primary Care Provider Unavailable Encounter Details Date Type Department Care Team (Late st Contact Info) Description 07/30/2020 Transcribed Document [facility] Family Medicine [address] [place] [address] ProviderJodie MD [address] [place], [place] [address] Social History Tobacco Use Types Packs/Day Years [...] Historical ProviderMD - 07/30/2020 7:15 PM CDT [facility] Main OR IntraOp Summary Primary Physician: VLAD LEPE MD-URO Finalized Date/Time: 07/31/20 10:54:37 Pt. Name: TAY THOMAS /Sex: 1955 Male Med Rec #: [id number] Physician: VLAD LEPE MD-URO Financial #: [id number] Pt. Type: O Room/Bed: Admit/Disch: 07/30/20 13:09:00 - Institution: [facility] IntraOp Case Attendance Entry 1 Entry 2 [...] Fatima KYOne Pref Card Builder Role Performed Printed Circuit Board Pcb Designer, First Laser Labor Relations Consultant Time In 07/30/20 19:05:00 07/30/20 19:05:00 Time Out 07/30/20 20:00:00 07/30/20 20:00:00 Procedure Ureteral Stone Ureteral Stone Manipulation Laser, Manipulation Laser, Ureteral Stent Insertion Ureteral Stent Insertion Other Attendee Superficial Wound Closed By: Last Modified By: Sara Dent, Sara Souza Rn 07/30/20 20:02:00 07/30/20 20:02:38 [facility] IntraOp Case Attendance Audit 07/30/20 20:02:38 Consumer Lender: [id number] Modifier: [id number] <+> 5 Procedure 07/30/20 20:02:00 Consumer Lender: [id number] Modifier: [id number] 1 <+> Time Out 1 <*> Procedure [...] In <+> 5 Time Out 07/30/20 19:48:38 Consumer Lender: [id number] Modifier: [id number] <+> 5 Case Attendee <+> 5 Role Performed 07/30/20 19:26:20 Consumer Lender: [id number] Modifier: [id number] 1 <+> Time In 1 <*> Procedure [...] Manipulation Laser, Ureteral Stent Insertion 07/30/20 18:34:03 Consumer Lender: [id number] Modifier: [id number] <+> 1 Procedure <+> 2 Procedure <+> 3 Procedure <+> 4 Procedure [facility] IntraOp Case Times Entry 1 Patient In Room Time 07/30/20 19:05:00 Out Room Time 07/30/20 20:00:00 Anesthesia Start Time 07/30/20 19:05:00 Stop Time 07/30/20 20:00:00 Surgery / Procedure Times Start Time 07/30/20 19:15:00 Stop Time 07/30/20 19:56:00 Last Modified By: Sara Dent Rn 07/30/20 20:01:59 [facility] IntraOp Case Times Audit 07/30/20 20:01:59 Consumer Lender: [id number] Modifier: [id number] <+> 1 Out Room Time <+> 1 Stop Time <+> 1 Stop Time [facility] IntraOp Communication Entry 1 Communication To Family/Significant other Communication By Sara Dent, Cassie Date and Time 07/30/20 19:04:00 Last Modified By: Sara Dent, Cassie 07/30/20 19:26:06 [facility] IntraOp Departure from OR Entry 1 Integumentary Assessment Integumentary WDL Assessment WDL Transfer/Handoff Transfer to PACU Phase I Handoff Method Phone call Post-op Transport Stretchandrzej/Quinnrerma Via Patient Transport CHIP EVANGELISTA, Accompanied by Jailene BENEDICT Carolyn, Rn Last Modified By: Sara Dent, Cassie 07/30/20 19:26:32 [facility] IntraOp Departure from OR Audit 07/30/20 19:26:32 Consumer Lender: [id number] Modifier: [id number] <+> 1 Patient Transport Accompanied by [facility] IntraOp Fire Risk Assessment Entry 1 Fire [...] Modified By: Sara Dent Rn 07/30/20 19:18:49 [facility] IntraOp Fire Risk Assessment Audit 07/30/20 19:18:49 Consumer Lender: [id number] Modifier: [id number] <+> 1 Fire Risk Assessment Verified Date/Time [facility] IntraOp General Case Rough Planer Tender 1 Case Information OR Cysto 01 [facility] Case Level 1 Room Verified Yes Wound Class II - Clean-Contaminated Specialty Urology Anesthesia Type General ASA Class 3 Diagnosis Preop Diagnosis RIGHT URETERAL STONE Postop Diagnosis SEE MD POST OP NOTE Last Modified By: Sara Dent Rn 07/30/20 19:20:43 [facility] IntraOp General Case Data Audit 07/30/20 19:20:43 Consumer Lender: [id number] Modifier: [id number] 1 <*> ASA Class 2 [facility] IntraOp Implant Log Entry 1 Type Implant (Synthetic) Implant Log Implant Type Other Implant STENT URET PERC + Identification [id number] Description Implant Quantity 1 Implant Site RT URETER Implant [id number] Identification Lot Number Implant Archer Identification Sci:Urology/Gynecology Receiver Bulk System Name: Implant [id number] Identification Catalog Number Implant Size [id number] Implant Has an Yes Expiration Date Implant Expiration 09/22/20 Date Tissue Implant Last Modified By: Sara Dent Rn 07/30/20 19:52:21 [facility] IntraOp Implant Log Audit 07/30/20 19:52:21 Consumer Lender: [id number] Modifier: [id number] <+> 1 Implant Identification Description <+> 1 Implant Identification Lot Number <+> 1 Implant Identification Receiver Bulk System Name: <+> 1 Implant Size <+> 1 Implant Expiration Date <+> 1 Implant Identification Catalog Number <+> 1 Implant Has an Expiration Date [facility] IntraOp Intraoperative Assessment Entry 1 Handoff Method [...] Modified By: Sara Dent Rn 07/30/20 18:32:04 [facility] IntraOp Intraoperative Equipment Entry 1 Type Equipment [...] Modified By: Sara Dent Rn 07/30/20 19:20:37 [facility] IntraOp Intraoperative Equipment Audit 07/30/20 19:20:37 Consumer Lender: [id number] Modifier: [id number] 1 <-> Electrocardiogram (ECG) Electrode Five lead placement Placement [facility] IntraOp Laser Data/Safety Entry 1 Procedure Ureteral Stone Manipulation Laser Laser Data Laser Type Green light Laser Serial [id number] Number/Identificatio n Number Laser Mode Continuous Laser Mode Set By VLAD LEPE MD-URO Microscope Used? No Laser Fiber Used Yes Graff 10 Joules 0.5 Laser Safety Procedure personnel Measures Included received laser safety information, Garrison of water/Saline immediately available, Fire extinguisher location [...] Modified By: Sara Dent Rn 07/30/20 19:47:23 [facility] IntraOp Laser Data/Safety Audit 07/30/20 19:47:23 Consumer Lender: [id number] Modifier: [id number] 1 <+> Graff 1 <*> Procedure Ureteral Stone Manipulation Laser 1 <+> Laser Safety Measures Included 1 <+> Joules 07/30/20 19:25:53 Consumer Lender: [id number] Modifier: [id number] 1 <*> Procedure Ureteral Stone Manipulation Laser 1 <+> Laser Serial Number/Identification Number [facility] IntraOp Medication Admin Entry 1 Entry 2 Entry 3 Medication/Irrigant ARLET IRR NACL 0.9PCT lidocaine 2% urojet [place] Aida - [id number] 10ml jelester - [id number] Combo Med List Time Administered Route of Irrigation TOP TOPICAL Administration Dose Dose 10 Unit of Measure ml Volume Administered By VLAD LEPE, VLAD LEPE, VLAD LEPE MD-URO -URO -URO Procedure Irrigation Irrigant Volume In Irrigant [...] Modified By: Sara Dent Rn 07/30/20 19:48:06 [facility] IntraOp Medication Admin Audit 07/30/20 19:48:06 Consumer Lender: [id number] Modifier: [id number] <+> 4 Medication/Irrigant <+> 4 Route of Administration <+> 4 Administered By <+> 4 Dose <+> 4 Time Administered <+> 4 Unit of Measure [facility] IntraOp Patient Positioning Entry 1 Procedure Ureteral [...] Cysto Positioned By VLAD LEPE MD-URO, Sara Dent, Cassie, CHIP EVANGELISTA MD-ANS Position Verified Positioning Yes Verified by Anesthesia Positioning Yes Verified by Surgeon Last Modified By: Sara Dent Rn 07/30/20 18:34:04 [facility] IntraOp Patient Positioning Audit 07/30/20 18:34:04 Consumer Lender: [id number] Modifier: [id number] <+> 1 Procedure [facility] IntraOp Sign In Entry 1 Patient, Site, [...] Modified By: Sara Dent Rn 07/30/20 18:33:45 [facility] IntraOp Sign Out Entry 1 RN Confirmation [...] Modified By: Sara Dent Rn 07/30/20 20:02:04 [facility] IntraOp Sign Out Audit 07/30/20 20:02:04 Consumer Lender: [id number] Modifier: [id number] <+> 1 RN Sign Out Signature Date/Time [facility] IntraOp Skin Prep Entry 1 Procedure Ureteral Stone Manipulation Laser, Ureteral Stent Insertion Prescribed Yes Pre-Surgical Prep Completed Prep Area Genitalia Intraop Prep Integumentary WDL Assessment WDL Prep Agents Betadine solution Prep by Sara Dent Rn Hair Removal Methods No hair removal performed Last Modified By: Sara Dent Rn 07/30/20 18:34:05 [facility] IntraOp Skin Prep Audit 07/30/20 18:34:05 Consumer Lender: [id number] Modifier: [id number] <+> 1 Procedure [facility] IntraOp Surgical Procedures Entry 1 Entry 2 [...] Taylor, Carolyn, Rn 07/30/20 20:02:05 07/30/20 20:02:05 [facility] IntraOp Surgical Procedures Audit 07/30/20 20:02:05 Consumer Lender: [id number] Modifier: [id number] <+> 1 Stop <+> 2 Stop 07/30/20 19:47:35 Consumer Lender: [id number] Modifier: [id number] 2 <*> Procedure Ureteral Stent Insertion 07/30/20 19:20:00 Consumer Lender: [id number] Modifier: [id number] <+> 1 Start <+> 2 Start [facility] IntraOp Temp Regulation Devices Entry 1 Temp Regulation Temperature Warm blankets, Room Regulation Device temperature Temperature Upper body Regulation Site Temperature CHIP EVANGELISTA, Regulation Device JKA Applied by Temperature Patient's temperature Regulation Comment monitored by anesthesia provider. Forced air warming device available for use. Last Modified By: Sara Dent Rn 07/30/20 19:19:58 [facility] IntraOp Temp Regulation Devices Audit 07/30/20 19:19:58 Consumer Lender: [id number] Modifier: [id number] <+> 1 Temperature Regulation Device Applied by [facility] IntraOP Time Out Entry 1 Procedure to [...] Modified By: Sara Dent Rn 07/30/20 19:19:43 [facility] IntraOp X-Ray and Images Entry 1 X-Ray/Imaging [...] DIANN Correct Billing Electronically signed by Jane [facility] Conversion Signals Intelligence Analysis Manager Cerner at 06/03/2022 10:53 PM CDT documented in this encounter Plan of Treatment Not on file documented as of this encounter Visit Diagnoses Not on filedocumented in this encounter Care Teams Java Web Engineer Relationship Specialty Start Date End Date Emily Estrada [address] [place] [id number] PCP - General 05/14/22 06/09/24 [facility], Provider Not In The System, [place] [address] PCP - General 07/18/24 Lolita Belcher [address] [place] [address], [address] [place] [address] Advanced Registered Nurse Practitioner Primary Care 06/10/24 documented as of this encounter
--- OUTSIDE RECORDS SUMMARY | 2024-09-05 11:17 | XMS_ITS | Clinical Summary ---
Author Organization [employer] ([place], [place], [place], [place]) Address [address] [place] [address] Care Team Providers Care Kettleman Name Role Phone [facility], Provider Not In The System [...] EDT - 07/19/2024 2:16 AM EDT Emergency [facility] Emergency Department [address] [place] [phone] Kareem Martel MD Right ureteral stone (Primary Dx); Renal colic on right side Discharge Disposition: Home or Self Care 07/18/2024 Travel 07/12/2024 1:38 PM EDT - 07/12/2024 11:59 PM EDT Hospital Encounter [facility] Diagnostic Imaging - [address] [place] [address] Shi Alvarenga PA Calculus of kidney Discharge Disposition: Home or Self Care 07/12/[address] [facility] Diagnostic Imaging - [address] [place] [address] Shi Alvarenga PA Calculus of kidney (Primary Dx) 06/09/2024 2:41 PM EDT Anesthesia Event [facility] Surgery Department [address] [place] [phone] Abhay Barbour CRNA Qureshi, Muhammad, MD 06/09/2024 1:50 PM EDT - 06/09/2024 3:22 PM EDT Surgery [facility] Surgery Department [address] [place] [phone] Kareem Young MD LITHOTRIPSY,EXTRACO RPOREAL SHOCK WAVE (ESWL) 06/08/2024 3:46 PM EDT - 06/10/2024 11:20 AM EDT Hospital Encounter [facility] Telemetry Unit [address] [place] [address] Shannan Andrea MD Discharge Disposition: [...] your living situation today? I have a [facility] place to live 06/08/2024 Think about [...] Do you speak a language other than [place] at [facility]? No 06/08/2024 Do you want help [...] 60-74 years 1-dose series) 2013 COVID-19 VACCINE ( - season) 2023, 05/05/2020 Falls Risk Screening 02/17/2024 Influenza Vaccine (#1) 2024 Tobacco Cessation Counseling and Screening (12+) 07/18/2025 07/18/2024 Medical Devices Implanted Type Area Obstetric Assistant Device Identifier Shelf Expiration Date Model / Serial / Lot Bone Vivigen Formable Cell 5cc Bl-1600-002 - [id number] Implanted:Qty : 1 on 05/03/2022 by Edson Barfield MD at [facility] IMPLANTS N/A: Back LIFENET:LIFENET TRANSPLANT SRV 04/14/2023 BL-1600-0 90-8 055 / Scr Spne Arash Fix 7x50mm - [id number] Implanted:Qty : 4 on 05/03/2022 by Edson Barfield MD at [facility] IMPLANTS N/A: Back J &J:DEPUY:DEPUY SPINE 50 / 50 / Mis Jazzy Ply Scrw Set Ti 1866-15-000 - [id number] Implanted:Qty : 4 on 05/03/2022 by Edson Barfield MD at [facility] IMPLANTS N/A: Back J &J:DEPUY:DEPUY SPINE 15-0 00 / 15-0 00 / Teo Pre Load 40mm [id number] - [id number] Implanted:Qty : 2 on 05/03/2022 by Edson Barfield MD at [facility] IMPLANTS N/A: Back J &J:DEPUY:DEPUY SPINE -0 40 / 0 40 / Cage Eit Plif H 11mm 8d 11/11 [id number] - [id number] Implanted:Qty : 1 on 05/03/2022 by Edson Barfield MD at [facility] IMPLANTS N/A: Back J &J:DEPUY:DEPUY SPINE 03/18/2027 [id number] / / [id number] Sealant Durasl Spine 5ml - [id number] Implanted:Qty : 1 on 05/03/2022 by Edson Barfield MD at [facility] IMPLANTS N/A: Back [employer] LIF[employer]CI 10/17/2023 [id number] / / [id number] Pwdr Cellerate Rx 5gm Surgical Mqs-28-Wuhqao - [id number] Implanted:Qty : 1 on 05/03/2022 by Edson Barfield MD at [facility] IMPLANTS N/A: Back [facility] 12/17/2023 [facility]-05-SA CRXP / / [id number] Stent Uret Percflx + 4.8frx28 [id number] - [id number] Implanted:Qty : 1 on 06/09/2024 by Kareem Young MD at [facility] IMPLANTS Right: Ureter [employer]:UROLOGY/GYNE COLOGY 10/18/2026 [id number] / / [id number] Explanted Type Area Obstetric Assistant Device Identifier Shelf Expiration Date Model / Serial / Lot Cath Uret Pollack 5fr [id number] - [id number] Implanted:Kareem Blandon MD (Quantity not on file) Explanted:Qty: 1 on 06/09/2024 at [facility] Right: Ureter COOK 11/17/2026 [id number] / / [id number] Procedures Procedure Name Priority Date/Time Associated Diagnosis [...] ANESTHESIA INTUBATION Routine 06/09/2024 2:48 PM EDT [place] CYSTO W/INSERT URETERAL STENT 06/09/2024 2:39 PM EDT Diagnosis unknown [place] LITHOTRIPSY XTRCORP SHOCK WAVE 06/09/2024 2:39 PM [...] Color, UA Light Yellow 07/19/2024 12:21 AM [facility] Clarity, UA Turbid(A) Clear [facility] Specific [place], UA 1.022 1.005 - 1.030 07/19/2024 12:21 AM [facility] pH, UA 5.5(L) 6.0 - 8.0 07/19/2024 12:[facility] Leukocytes, UA Negative Negative 07/19/2024 12:[facility] Nitrite, UA Negative Negative 07/19/2024 12:[facility] Protein, UA Negative Negative 07/19/2024 12:[facility] Glucose, UA Normal Normal 07/19/2024 12:21 AM EDT [facility] Ketones, UA Negative Negative 07/19/2024 12:21 AM EDT [facility] Bilirubin, UA Negative Negative 07/19/2024 12:21 AM EDT [facility] Blood, UA 3+(A) Negative 07/19/2024 12:21 AM EDT [facility] Urobilinogen, UA Normal Normal 07/19/2024 12:21 AM EDT [facility] Specimen Source Urine, Clean Catch 07/19/2024 12:21 AM EDT [facility] Urine URINE SPECIMEN COLLECTION, CLEAN CATCH / Unknown 07/19/2024 12:09 AM EDT 07/19/2024 12:10 AM EDT us Ariella NOLAND-C URINE ORDERABLES Final Res ult Performing Organization Address City/[facility]/ZIP Co de Phone Number [facility] [address] [place] [address], [facility] [phone] * (ABNORMAL) Urinalysis Microscopic Only (07/19/2024 12:09 AM EDT) WBC, UA 6-10(A) None Seen /HPF 07/19/2024 12:21 AM EDT [facility] RBC, UA Too Numerous To Count(A) None Seen /HPF 07/19/2024 12:21 AM EDT [facility] Bacteria, UA 1+(A) Trace, None Seen 07/19/2024 12:21 AM EDT [facility] Mucus 1+(A) None Seen 07/19/2024 12:21 AM EDT [facility] SQUAMOUS EPITHELIAL None Seen None Seen /HPF 07/19/2024 12:21 AM EDT [facility] Urine URINE SPECIMEN COLLECTION, CLEAN CATCH / Unknown 07/19/2024 12:09 AM EDT 07/19/2024 12:10 AM EDT us Ariella Grant PA-C URINE ORDERABLES Final Res ult Performing Organization Address City/[facility]/ZIP Co de Phone Number [facility] [address] [place] [address], [facility] [phone] * (ABNORMAL) CBC with Auto Diff (07/18/2024 11:28 PM EDT) WBC 8.6 3.9 - 10.0 K/ L 07/18/2024 11:32 PM EDT [facility] RBC 4.54(L) 4.63 - 6.08 M/ L 07/18/2024 11:32 PM EDT [facility] Hemoglobin 14.1 11.2 - 15.7 GM/DL 07/18/2024 11:32 PM EDT [facility] Hematocrit 42.0 40.1 - 51.0 % 07/18/2024 11:32 PM EDT [facility] MCV 93 79 - 95 fL 07/18/2024 11:32 PM EDT [facility] MCH 31.1 25.6 - 32.2 pg 07/18/2024 11:32 PM EDT [facility] MCHC 33.6 32.3 - 36.5 GM/DL 07/18/2024 11:32 PM EDT [facility] RDW 13.6 11.6 - 14.4 % 07/18/2024 11:32 PM EDT [facility] Platelets 236 163 - 369 K/CU MM 07/18/2024 11:32 PM EDT [facility] MPV 9.7 9.4 - 12.4 fL 07/18/2024 11:32 PM EDT [facility] % Neutros 62 34 - 68 % 07/18/2024 11:32 PM EDT [facility] % Lymphs 24 19 - 53 % 07/18/2024 11:32 PM EDT [facility] % Monos 9 4 - 13 % 07/18/2024 11:32 PM EDT [facility] % Eos 4 1 - 7 % 07/18/2024 11:32 PM EDT [facility] % Baso 1 0 - 1 % 07/18/2024 11:32 PM EDT [facility] # Neutros 5.33 1.56 - 6.13 K/ L 07/18/2024 11:32 PM EDT [facility] # Lymphs 2.05 1.18 - 3.74 K/ L 07/18/2024 11:32 PM EDT [facility] # Monos 0.74 0.24 - 0.82 K/ L 07/18/2024 11:32 PM EDT [facility] # Eos 0.36 0.04 - 0.54 K/ L 07/18/2024 11:32 PM EDT [facility] # Baso 0.08 0.01 - 0.08 K/ L 07/18/2024 11:32 PM EDT [facility] Immature Granulocytes-Re lative 0.20 0.00 - 0.60 % 07/18/2024 11:32 PM EDT [facility] # IG 0.02 0.00 - 0.05 K/uL 07/18/2024 11:32 PM EDT [facility] Blood 07/18/2024 11:2 8 PM EDT 07/18/2024 11:28 PM EDT Narrative [facility] - 07/18/2024 11:32 PM EDT When [...] Grant PA-C LAB BLOOD ORDERABLES Final Result [facility] [address] [phone] * Lactic Acid with reflex (SJ) (07/18/2024 11:28 PM EDT) Lactic Acid Level (mmol/L) 1.0 0.4 - 2.0 mmol/L 07/18/2024 11:58 PM EDT [facility] Comment:If a Lactic Acid Lev el with Reflex if Indicated result is greater than 2.0, a Lactic Acid Level will be ordered to be collected 2 hours after the original collection time. Blood 07/18/2024 11:2 8 PM EDT 07/18/2024 11:28 PM EDT Ariella Grant PA-C LAB BLOOD ORDERABLES Final Result Performing Organization Address City/[facility]/ZIP Co de Phone Number [facility] [address] [phone] * Blood Culture (07/18/2024 11:28 PM EDT) Only the most recent of2 resultswithin the time period is included. Result No growth in 5 days 07/24/2024 10:01 AM EDT [facility] Blood 07/18/2024 11:2 8 PM EDT 07/18/2024 11:28 PM EDT Ariella Grant PA-C MICROBIOLOGY - GENERAL ORD ERABLES Final Result Performing Organization Address [facility] Co de Phone Number [facility] [address] [phone] * C-Reactive Protein (07/18/2024 11:27 PM EDT) Pathologist [facility] CRP <0.30 0.00 - 0.90 mg/dL 07/18/2024 11:58 PM EDT [facility] Blood Venipuncture / Unknown 07/18/2024 11:27 PM EDT 07/18/2024 11:27 PM EDT us Ariella Grant PA-C LAB BLOOD ORDERABLES Final Result Performing Organization Address City/[facility]/ZIP Co de Phone Number [facility] [address] [place] [address], [facility] [phone] * (ABNORMAL) Comprehensive metabolic panel (07/18/2024 11:27 PM EDT) Sodium 140 136 - 146 meq/L 07/18/2024 11:58 PM EDT [facility] Potassium 4.1 3.5 - 5.1 meq/L 07/18/2024 11:58 PM T [facility] Chloride 109 102 - 112 meq/L 07/18/2024 11:58 PM T [facility] CO2 28 21 - 32 meq/L 07/18/2024 11:58 PM [facility] Calcium 9.2 8.5 - 10.1 mg/dL 07/18/2024 11:58 PM [facility] Glucose 115(H) 74 - 106 mg/dL 07/18/2024 11:58 PM T [facility] BUN 28(H) 7 - 22 mg/dL 07/18/2024 11:58 PM [facility] Creatinine 0.93 0.70 - 1.30 mg/dL 07/18/2024 11:58 PM [facility] BUN/Creatinine 30(H) 8 - 20 07/18/2024 11:58 PM [facility] Albumin 4.0 3.4 - 5.0 g/dL 07/18/2024 11:58 PM [facility] Alkaline Phosphatase 169(H) 27 - 136 U/L 07/18/2024 11:58 PM [facility] ALT 47 12 - 78 U/L 07/18/2024 11:58 PM [facility] AST 37 5 - 37 U/L 07/18/2024 11:58 PM [facility] Total Bilirubin 0.3 0.2 - 1.3 mg/dL 07/18/2024 11:58 PM [facility] Protein, Total 7.6 6.4 - 8.2 gm/dL 07/18/2024 11:58 PM [facility] Anion Gap 7(L) 9 - 20 07/18/2024 11:58 PM [facility] A/G Ratio 1.1 1.1 - 2.5 07/18/2024 11:58 PM [facility] Globulin 3.6 1.5 - 4.5 g/dL 07/18/2024 11:58 PM [facility] Osmolality Calc 285.8 mOsm/kg 11:58 PM EDT [facility] eGFR (mL/min/1.73m2) >60 >=60 mL/min/1.7 3m2 07/18/2024 11:58 PM EDT [facility] Comment:ESTIMATED GFR IS NOT ACCURATE CREATININE CLEARANCE IN PREDICTING GLOMERULAR FILTRATION RATE. ESTIMATED GFR IS NOT APPLICABLE FOR DIALYSIS PATIENTS. Blood Venipuncture / Unknown 07/18/2024 11:27 PM EDT 07/18/2024 11:27 PM EDT us Ariella Grant PA-C LAB BLOOD ORDERABLES Final Result [facility] [address] [phone] * X-ray abdomen KUB 1 view (07/12/2024 [...] of attempts at approach: 1 Abhay Barbour TEXTILE ENGINEER ANESTHESIA ORDERABLES Fin al Result * [...] 136 - 146 meq/L 06/09/2024 5:39 AM [facility] Potassium 4.1 3.5 - 5.1 meq/L 06/09/2024 5:39 AM [facility] Chloride 111 102 - 112 meq/L 06/09/2024 5:39 AM [facility] CO2 26 21 - 32 meq/L 06/09/2024 5:39 AM [facility] Anion Gap 8(L) 9 - 20 06/09/2024 5:39 AM [facility] BUN 18 7 - 22 mg/dL 06/09/2024 5:39 AM [facility] Creatinine 0.97 0.70 - 1.30 mg/dL 06/09/2024 5:39 AM [facility] BUN/Creatinine 19 8 - 20 06/09/2024 5:39 AM [facility] Glucose 107(H) 74 - 106 mg/dL 06/09/2024 5:39 AM [facility] Calcium 8.3(L) 8.5 - 10.1 mg/dL 06/09/2024 5:39 AM [facility] Osmolality Calc 283.6 mOsm/kg 5:39 AM [facility] eGFR (mL/min/1.73m2) >60 >=60 mL/min/1.7 3m2 06/09/2024 5:39 AM [facility] Comment:eGFR of <60 suggests chronic kidney disease if found over a 3 month period of time. eGFR <15 indicates renal failure. Blood Venipuncture / Unknown 06/09/2024 5:28 AM EDT 06/09/2024 5:28 AM EDT us Shannan Andrea MD LAB BLOOD ORDERABLES Final Resu lt [facility] [address] [place] [address], [facility] [phone] * (ABNORMAL) CBC - Hemogram (SJ-BKR) (06/08/2024 5:26 PM EDT) WBC 9.1 3.9 - 10.0 K/ L 06/08/2024 5:33 PM EDT [facility] RBC 4.13(L) 4.63 - 6.08 M/ L 06/08/2024 5:33 PM EDT [facility] Hemoglobin 12.6 11.2 - 15.7 GM/DL 06/08/2024 5:33 PM EDT [facility] Hematocrit 38.6(L) 40.1 - 51.0 % 06/08/2024 5:33 PM EDT [facility] MCV 94 79 - 95 fL 06/08/2024 5:33 PM EDT [facility] MCH 30.5 25.6 - 32.2 pg 06/08/2024 5:33 PM EDT [facility] MCHC 32.6 32.3 - 36.5 GM/DL 06/08/2024 5:33 PM EDT [facility] RDW 13.2 11.6 - 14.4 % 06/08/2024 5:33 PM EDT [facility] Platelets 214 163 - 369 K/CU MM 06/08/2024 5:33 PM EDT [facility] MPV 9.7 9.4 - 12.4 fL 06/08/2024 5:33 PM EDT [facility] nRBC 0(L) 1 - 5 /100 WBC 06/08/2024 5:33 PM EDT [facility] Blood Venipuncture / Unknown 06/08/2024 5:26 PM EDT 06/08/2024 5:26 PM EDT us Shannan Andrea MD LAB BLOOD ORDERABLES Final Resu lt Performing Organization Address [facility] Co de Phone Number [facility] [address] [phone] * PT/INR, PTT (06/08/2024 5:26 PM EDT) aPTT 28.2 22.0 - 32.0 seconds 06/08/2024 5:45 PM EDT [facility] Protime 10.8 9.0 - 12.0 seconds 06/08/2024 5:45 PM EDT [facility] INR 0.99 0.80 - 1.10 06/08/2024 5:45 PM EDT [facility] Blood Venipuncture / Unknown 06/08/2024 5:26 PM EDT 06/08/2024 5:26 PM EDT Shannan Andrea MD LAB BLOOD ORDERABLES Final Resu lt Performing Organization Address [facility] Co de Phone Number [facility] [address] [phone] * XR chest AP portable (06/08/2024 4:55 PM EDT) Anatomical Region Laterality Modality Chest X-Ray 06/09/2024 1:51 AM EDT Impressions 06/09/2024 1:52 AM EDT No acute cardiopulmonary process. Images reviewed, interpreted, dictated and electronically signed by Devon Walker MD Voice android ios developer technology (Neurotrack) is used for the dictation of this note and sound-alike words might be erroneously placed despite reviewing this note for accuracy. Errors in dictation may reflect use of voice recognition software and not all errors in android ios developer may have been detected prior to signing. [...] electronically signed by Devon Walker MD Voice android ios developer technology ([employer]) is used for the dictation of this note and sound-alike words might be erroneously placed despite reviewing this note for accuracy. Errors in dictation may reflect use of voice recognition software and not all errors in android ios developer may have been detected prior to signing. [...] (MCT) 0 degrees GE MUSE T Wave [place] 0 degrees GE MUSE [place] Diagnosis No QRS complexes found, no ECG [...] 3 Months Insurance MEDICARE PART A B [facility] Advance Directives For more information, please contact: [phone] * Full Code (Latest Code Status on [...] 5:45 PM 05/04/2022 4:41 PM Care Teams Kettleman Relationship Specialty Start Date End Date [facility], Provider Not In The System, [place] [address] PCP - General 07/18/24 Lolita Belcher [address] [place] [address], [address] [place] [address] Advanced Registered Nurse Practitioner Primary Care 06/10/24
--- OUTSIDE RECORDS SUMMARY | 2024-09-05 11:17 | XMS_ITS | Encounter Summary ---
Author Organization [employer] ([place], [place], [place], [place]) Address [address] [place] [address] Care Team Providers Care Residential Worker Name Role Phone Emily Estrada Primary Care Provider Unavail able [facility], Provider Not In The System Primary Care Provider Unavailable Encounter Details Date Type Department Care Team (Late st Contact Info) Description 07/30/2020 Transcribed Document [facility] Family Medicine [address] [place] [address] ProviderJdoie MD [address] [place], [place] [id number] Social History Tobacco Use Types Packs/Day Years [...] Historical ProviderMD - 07/30/2020 7:15 PM CDT [facility] Main OR Preop Summary Primary Physician: VLAD LEPE MD-URO Finalized Date/Time: 08/15/20 14:01:29 Pt. Name: TAY THOMAS /Sex: 1955 Male Med Rec #: [id number] Physician: VLAD LEPE MD-URO Financial #: [id number] Pt. Type: O Room/Bed: /16 Admit/Disch: 07/30/20 13:09:00 - Institution: [facility] PreOp Case Times Entry 1 In Preop 07/30/20 13:23:00 Ready for Holding n/a Room Patient Ready for 07/30/20 15:00:00 Surgery Patient Out of Preop 07/30/20 19:03:00 Patient Out of n/a Holding Room Last Modified By: Khloe Barclay Nurse Loom Fixer 08/15/20 14:01:27 [facility] PreOp Case Times Audit 08/15/20 14:01:27 Director Of Pharmacy: [id number] Modifier: [id number] <+> 1 Patient Out of Preop Finalized By: Khloe Barclay, Nurse Data Operations Director Signatures Signed By: Khloe Barclay Nurse 08/15/20 14:01 documented in this encounter Plan of Treatment Not on file documented as of this encounter Visit Diagnoses Not on filedocumented in this encounter Care Teams Residential Worker Relationship Specialty Start Date End Date Emily Estrada [address] [place] [phone] PCP - General 05/14/22 06/09/24 [facility], Provider Not In The System, [place] [address] PCP - General 07/18/24 Lolita Belcher [address] [address], [address] [place] [address] Advanced Registered Nurse Practitioner Primary Care 06/10/24 documented as of this encounter
--- OUTSIDE RECORDS SUMMARY | 2024-09-05 11:17 | XMS_ITS | Encounter Summary ---
Author Organization [employer] ([place], [place], [place], [place]) Address [address] [place] [address] Care Team Providers Care Demolition Engineer Name Role Phone Emily Estrada Primary Care Provider Unavail able [facility], Provider Not In The System Primary Care Provider Unavailable Encounter Details Date Type Department Care Team (Late st Contact Info) Description 07/30/2020 Transcribed Document [facility] [place] Medicine [address] [place] [address] ProviderJodie MD [address] [place] [address] Social History Tobacco Use Types Packs/Day Years Used Date Smoking Tobacco: Never Assessed Sex and Gender Information Value Date Recorded Sex Assigned at Not on file Legal Sex Male 4:10 PM CDT Gender Identity Not on file Sexual Orientation Straight 05/21/2022 1: 57 PM CDT documented as of this encounter Miscellaneous Notes * Cerner Conversion Note - Jodie ProviderMD - 07/30/2020 6:30 PM CDT [facility] [place] [address] TAY THOMAS :1955 Visit Time:07/30/2020 What [...] Provider of: signs of infection, fever greater [id number], chills. unable to pass urine Follow-Up Appointments Follow Up with VLAD LEPE When Within 2 to 3 days Comments Call for follow up appointment Where: [address] [place] [address] [address] [place] [id number]- [facility] (1) Medications What How Much When Instructions [...] these instructions at home: Medicines ??? Take vjdb-tso-ttrtyhc and prescription medicines only as told by [...] or treat constipation, such as: ? Take oazj-cya-canqmkr or prescription medicines. ? Eat foods that [...] of blood in your urine. ??? Take bhpb-kin-oiclasl and prescription medicines only as told by [...] provider. Document Revised: 10/14/2018 Document Reviewed: 10/14/2018 [employer] Patient Education ?? 2020 [employer]. Outpatient Surgery, Adult, Care After These instructions [...] and water are not available, use hand loan processor. ? Change your dressing as told by [...] or a bad smell. Medicines ??? Take hvnv-hoi-mcvqejf and prescription medicines only as told by [...] provider. Document Revised: 05/03/2018 Document Reviewed: 05/25/2016 [employer] Patient Education ?? 2020 [employer]. Ureteroscopy Ureteroscopy is a procedure to [...] including vitamins, herbs, eye drops, creams, and mwbp-gzn-wdtzlmm medicines. ??? Any problems you or family [...] provider. Document Revised: 01/15/2018 Document Reviewed: 11/14/2016 [employer] Patient Education ?? 2020 [employer]. Emergency Awareness and Preventative Care STROKE is [...] Assistance with quitting is available by contacting 9-299-MPMY-NOW. This is a free resource providing counseling, [...] was given the opportunity to ask questions. Patient/Ignition Specialist Name: Patient/Ignition Specialist Signature: Relationship to Patient: Clinician/Hospital Ignition Specialist Signature: Date: documented in this encounter Plan of Treatment Not on file documented as of this encounter Visit Diagnoses Not on filedocumented in this encounter Care Teams Demolition Engineer Relationship Specialty Start Date End Date Emily Estrada [address] [place] [address] [address] Jackson [phone] PCP - General 05/14/22 06/09/24 [facility], Provider Not In The System, [place] [address] PCP - General 07/18/24 Lolita Belcher [address] [facility], [address] [place] [address] Advanced Registered Nurse Practitioner Primary Care 06/10/24 documented as of this encounter
--- OUTSIDE RECORDS SUMMARY | 2024-09-05 11:17 | XMS_ITS | Encounter Summary ---
Author Organization [employer] ([place], [place], [place], [place]) Address [address] [place] [address] Care Team Providers Care Commercial Green Building Designer Name Role Phone Emily Estrada Primary Care Provider Unavail able [facility], Provider Not In The System Primary Care Provider Unavailable Encounter Details Date Type Department Care Team (Late st Contact Info) Description 07/30/2020 Transcribed Document [facility] [place] Family Medicine [address] [place] [address] ProviderJodie MD [address] [place] [address] Social History Tobacco Use Types Packs/Day Years [...] my office earlier today after discharge from [facility] secondary to a 7 mm stone in [...] prepped and draped in normal fashion. The 21-Cambodian cystoscopy sheath was introduced under direct vision [...] to go easily passed, and therefore a 5-Cambodian open-ended ureteral catheter was placed over the [...] will remove his stent in 72 hours. /[id number] MD MARSHA Vo/ANNA / TDA / MODL /[id number] CC: Dr. Lalo Young MD Electronically signed by Jane, [facility] Conversion Fishing Hand Cerner at 06/03/2022 10:53 PM CDT documented in this encounter Plan of Treatment Not on file documented as of this encounter Visit Diagnoses Not on filedocumented in this encounter Care Teams Commercial Green Building Designer Relationship Specialty Start Date End Date Emily Estrada [address] [place] [phone] PCP - General 05/14/22 06/09/24 [facility], Provider Not In The System, [place] [address] PCP - General 07/18/24 Lolita Belcher [address] [place] [address], [address] [place] [address] Advanced Registered Nurse Practitioner Primary Care 06/10/24 documented as of this encounter
--- OUTSIDE RECORDS SUMMARY | 2024-09-05 11:17 | XMS_ITS | Encounter Summary ---
Author Organization [employer] ([place], [place], [place], [place]) Address [address] [place] [address] Care Team Providers Care Coffee Attendant Name Role Phone Emily Estrada Primary Care Provider Unavail able [facility], Provider Not In The System Primary Care Provider Unavailable Encounter Details Date Type Department Care Team (Late st Contact Info) Description 07/30/2020 Transcribed Document [facility] [place] [address] [place] [address] ProviderJodie MD [address] [place], [place] [address] Social History Tobacco Use Types Packs/Day Years [...] Source : Measured Height Entry Format : Gordon Height, Feet : 6 ft(Converted to: 183 cm, 72 Inch) Height, Inches : 1 Inch(Converted to: 0 ft 1 Inch, 2.54 cm) Clinical Height : 185.42 cm Weight Source : Standing scale Weight Entry Format : Gordon Clinical Dosing Weight : 109.86 kg Weight, Pounds : 241.7 lb Body Surface Area (BSA) : 2.33 m2 Body Mass Index : 32 kg/m2 (HI) [place] Body Weight : 79 kg Yadi Del [...] Del Angel RN - 07/30/2020 14:17 EDT [place] Suicide Severity Rating Scale (C-SSRS) CSSRS Past [...] Germain Support Person/Pt Rep Contact Information : [phone] Emergency Contact #1 : Kelsie Germain Emergency Contact #1 Emergency Contact #1 Relationship : Emergency Contact #2 : ' Emergency Contact #2 Phone Number : ' Emergency Contact #2 Relationship : ' Humidifier Operator Needed : No Yadi Del Angel RN - 07/30/2020 14:34 EDT Want Family/Rep/Phys Notified of Admit : No Primary Language : Armenian Communication Barrier : None Yadi Del Angel [...] Level Score : 5 Yadi Del Angel, RN - 07/30/2020 14:34 EDT documented in this encounter Plan of Treatment Not on file documented as of this encounter Visit Diagnoses Not on filedocumented in this encounter Care Teams Coffee Attendant Relationship Specialty Start Date End Date Emily Estrada [address] [place] [address] PCP - General 05/14/22 06/09/24 [facility], Provider Not In The System, [place] [address] PCP - General 07/18/24 Lolita Belcher [address] [place] [address] [place] [address], [address] [place] [address] Advanced Registered Nurse Practitioner Primary Care 06/10/24 documented as of this encounter
--- OUTSIDE RECORDS SUMMARY | 2024-09-05 11:17 | XMS_ITS | Encounter Summary ---
Author Organization [employer] ([place], [place], [place], [place]) Address [address] [place] [address] Care Team Providers Care Credit Reporter Name Role Phone Emily Estrada Primary Care Provider Unavail able [facility], Provider Not In The System Primary Care Provider Unavailable Encounter Details Date Type Department Care Team (Late st Contact Info) Description 07/30/[address] [facility] [place] Family Medicine [address] [place] [address] ProviderJodie MD [address] [place], [place] [address] Social History Tobacco Use Types Packs/Day Years [...] : 1955 Associated Diagnoses: None Author: BLANCHE DOWNS, MAINTENANCE MECHANIC HELPER Chief Complaint R ureteral stone Review of [...] L shoulder LUE weakness. Integumentary: Warm, Dry, [place]. Neurologic: Alert, Oriented. Psychiatric: Cooperative, Appropriate mood & affect. Review / Management Results review: No qualifying data available. Impression and Plan Condition: Stable. documented in this encounter Plan of Treatment Not on file documented as of this encounter Visit Diagnoses Not on filedocumented in this encounter Care Teams Credit Reporter Relationship Specialty Start Date End Date Emily Estrada [address] [place] [phone] PCP - General 05/14/22 06/09/24 [facility], Provider Not In The System, [place] [address] PCP - General 07/18/24 Lolita Belcher [facility] [place] [address], [address] [address] Advanced Registered Nurse Practitioner Primary Care 06/10/24 documented as of this encounter
--- OUTSIDE RECORDS SUMMARY | 2024-09-05 11:17 | XMS_ITS | Encounter Summary ---
Author Organization [employer] ([place], [place], [place], [place]) Address [address] [place] [address] Care Team Providers Care Nylon Operator Name Role Phone Emily Estrada Primary Care Provider Unavail able [facility], Provider Not In The System Primary Care Provider Unavailable Encounter Details Date Type Department Care Team (Late st Contact Info) Description 07/30/2020 Transcribed Document [facility] [place] Family Medicine [address] [place] [address] ProviderJodie MD [address] [place], [place] [address] Social History Tobacco Use Types Packs/Day Years [...] these instructions at home: Medicines ??? Take dqdi-qyd-hvvdaah and prescription medicines only as told by [...] or treat constipation, such as: ? Take paua-mhs-qwrskdz or prescription medicines. ? Eat foods that [...] of blood in your urine. ??? Take ncrg-udo-vbaaokg and prescription medicines only as told by [...] provider. Document Revised: 10/14/2018 Document Reviewed: 10/14/2018 [employer] Patient Education ? 2020 [employer] Inc. Procedures Outpatient Surgery, Adult, Care After [...] and water are not available, use hand stone rubber. ? Change your dressing as told by [...] or a bad smell. Medicines ??? Take llqp-ugh-rlocncp and prescription medicines only as told by [...] Reviewed: 05/25/2016 Elsevier Patient Education ? 2020 [employer]. Urology Ureteroscopy Ureteroscopy is a procedure to [...] including vitamins, herbs, eye drops, creams, and znyc-akr-ekqkzqv medicines. ??? Any problems you or family [...] provider. Document Revised: 01/15/2018 Document Reviewed: 11/14/2016 Else[employer] Patient Education ? 2020 [employer]. documented in this encounter Plan of Treatment Not on file documented as of this encounter Visit Diagnoses Not on filedocumented in this encounter Care Teams Nylon Operator Relationship Specialty Start Date End Date Emily Estrada [address] [place] [address] [place] [address] PCP - General 05/14/22 06/09/24 [facility], Provider Not In The System, [place] [address] PCP - General 07/18/24 Lolita Belcher [address] [place] [address], [address] [place] [address] Advanced Registered Nurse Practitioner Primary Care 06/10/24 documented as of this encounter
--- OUTSIDE RECORDS SUMMARY | 2024-09-05 11:17 | XMS_ITS | Encounter Summary ---
Author Organization [employer] ([place], [place], [place], [place]) Address [address] [place] [address] Care Team Providers Care Scrap Metal Burner Name Role Phone Emily Estrada Primary Care Provider Unavail able [facility], Provider Not In The System Primary Care Provider Unavailable Encounter Details Date Type Department Care Team (Late st Contact Info) Description 07/30/2020 Transcribed Document [facility] [place] [address] [place] [address] ProviderJodie MD [address] [place], [place] [id number] Social History Tobacco Use Types Packs/Day Years Used Date Smoking Tobacco: Never Assessed Sex and Gender Information Value Date Recorded Sex Assigned at Not on file Legal Sex Male 4:10 PM CDT Gender Identity Not on file Sexual Orientation Straight 05/21/2022 1: 57 PM CDT documented as of this encounter Miscellaneous Notes * Cerner Conversion Note - Jodie ProviderMD - 07/30/2020 8:23 PM CDT Family/Agency/Support [...] on filedocumented in this encounter Care Teams Scrap Metal Burner Relationship Specialty Start Date End Date Emily Estrada [address] [place] [phone] PCP - General 05/14/22 06/09/24 [facility], Provider Not In The System, [place] [address] PCP - General 07/18/24 Lolita Belcher [address], [address] [place] [address] Advanced Registered Nurse Practitioner Primary Care 06/10/24 documented as of this encounter
== END 2024-09-05 23:59 | disposition home or self-care (01) ==
LOC: RAD 11:10
PROVIDERS: PCP Nurse Practitioner Family
DX: N20.0 Calculus of kidney (principal)
CPT/HCPCS: 74018

== ENCOUNTER 2024-12-14 12:17 | Outpatient (CLI) | payer MEDICARE, SELFPAY ==
--- OUTSIDE RECORDS SUMMARY | 2024-12-05 13:39 | XMS_ITS | Encounter Summary ---
Author Organization [employer] ([place], [place], [place], [place]) Address [address] [place] [address] Care Team Providers Care Aircraft Engine Mechanic Overhaul Name Role Phone [facility], Provider Not In The System MD Primary Care Provider Unavailable Reason for Referral * CAT Scan (Routine) - New Request Specialty Diagnoses / Procedures Referred By Contac t Referred To Contact Radiology Diagnoses Pain in left knee Procedures CT lower extremity without IV contrast left Knee Indigo Ferrera PA [address] [place] [address] Phone: tel: fax: Referral ID Status Reason Start Date Expiration Date V isits Requested Visits Authorized [id number] New Request 12/02/2024 12/02/2025 1 1 Reason for Visit * CAT Scan (Routine) - New Request Specialty Diagnoses / Procedures Referred By Contac t Referred To Contact Radiology Diagnoses Pain in left knee Procedures CT lower extremity without IV contrast left Knee Indigo Ferrera PA [address] [place] [address] Phone: tel: fax: Referral ID Status Reason Start Date Expiration Date V isits Requested Visits Authorized [id number] New Request 12/02/2024 12/02/2025 1 1 Encounter Details Date Type Department Care Team (Late st Contact Info) Description 12/05/2024 1:39 PM EDT - 12/05/2024 11:59 PM EDT Hospital Encounter [facility] [address] [place] [address] Indigo Ferrera PA [address] [place] [address] Pain in left knee Discharge Disposition: Home or Self Care Social [...] your living situation today? I have a [facility] place to live 06/08/2024 Think about [...] Do you speak a language other than [place] at [facility]? [...] Name Priority Date/Time Associated Diagnosis Comments CT LOWER EXTREMITY WITHOUT IV CONTRAST LEFT Routine 12/05/2024 2:03 PM EDT Pain in left knee documented in this encounter Results * CT lower extremity without IV contrast left Knee (12/05/2024 2:03 PM EDT) Anatomical Region Laterality Modality Lower Extremity, Hip, Femur, Leg, Knee, Ankle, Foot Computed Tomography (CT) 12/05/2024 3:14 PM EDT Impressions 12/05/2024 3:19 PM EDT Degenerative joint disease. Images reviewed, interpreted, and dictated by Dr. Alec Mauricio. Transcribed by Gregor Madrigal PA-C Narrative 12/05/2024 3:[address] SCAN LEFT LOWER EXTREMITY 12/05/2024 1:57 PM HISTORY: Knee osteoarthritis. Conformis protocol. COMPARISON: None. PROCEDURE: Axial images were obtained through the lower extremity by computed tomography. Sagittal and coronal reconstruction images were performed. This study was performed with techniques to keep radiation doses as low as reasonably achievable, (ALARA). Individualized dose reduction techniques using automated exposure control or adjustment of mA and/or kV according to the patient size were employed. FINDINGS: No acute bony abnormality is identified. Mild to moderate narrowing is seen of the medial and lateral compartments. There is sharpening of the tibial spines. Osteophytes are seen of the undersurface of the patella. There is a moderate knee joint effusion. Procedure Note Alec Mauricio MD - 12/05/2024 CT SCAN LEFT LOWER EXTREMITY 12/05/2024 1:57 PM HISTORY: Knee osteoarthritis. Conformis protocol. COMPARISON: None. PROCEDURE: Axial images were obtained through the lower extremity by computed tomography. Sagittal and coronal reconstruction images were performed. This study was performed with techniques to keep radiation doses as low as reasonably achievable, (ALARA). Individualized dose reduction techniques using automated exposure control or adjustment of mA and/or kV according to the patient size were employed. FINDINGS: No acute bony abnormality is identified. Mild to moderate narrowing is seen of the medial and lateral compartments. There is sharpening of the tibial spines. Osteophytes are seen of the undersurface of the patella. There is a moderate knee joint effusion. IMPRESSION: Degenerative joint disease. Images reviewed, interpreted, and dictated by Dr. Alec Mauricio. Transcribed by Gregor Madrigal PA-C Indigo BATISTA CT ORDERABLES Final Result documented in this encounter Visit Diagnoses Diagnosis Pain in left knee documented in this encounter Care Teams Aircraft Engine Mechanic Overhaul Relationship Specialty Start Date End Date [facility], Provider Not In The System, [place] [address] PCP - General 07/18/24 Lolita Belcher [address] [place] [address] [place] [address], [address] [place] [phone] Advanced Registered Nurse Practitioner Primary Care 06/10/24 documented as of this encounter
--- NOTE | 2024-12-14 12:21 | XR_ITS ---
FINAL REPORT CLINICAL HISTORY: CALCULUS OF KIDNEY-- pt has hx of numerous stones COMPARISON: None FINDINGS: SINGLE VIEW ABDOMEN A single view of the abdomen was obtained. There is a moderate amount of stool in the colon. There are no abnormally dilated loops of small bowel. No abnormal calcifications are identified. There is posterior and interbody fusion hardware at L4-5. IMPRESSION: Moderate stool burden. No abnormal calcifications. Reviewed, Interpreted and Dictated by Alec Mauricio MD Transcribed by Yolande Hoffman Authenticated and [facility][1]
--- OUTSIDE RECORDS SUMMARY | 2024-12-14 12:21 | XMS_ITS | Encounter Summary ---
Author Organization [employer] ([place], [place], [place], [place]) Address [address] [place] [address] Care Team Providers Care Dispatch Clerk Name Role Phone Emily Estrada Primary Care Provider Unavail able [facility], Provider Not In The System Primary Care Provider Unavailable Encounter Details Date Type Department Care Team (Late st Contact Info) Description 12/28/2018 Transcribed Document [facility] [place] Family Medicine [address] [place] [address] ProviderJodie MD [address] [place] [address] Social History Tobacco Use Types Packs/Day Years Used Date Smoking Tobacco: Never Assessed Sex and Gender Information Value Date Recorded Sex Assigned at Not on file Legal Sex Male 4:10 PM CDT Gender Identity Not on file Sexual Orientation Straight 05/21/2022 1: 57 PM CDT documented as of this encounter Miscellaneous Notes * Cerner Conversion Note - Jodie ProviderMD - 12/28/2018 8:52 AM COTTON BALL MACHINE TENDER ED Discharge Entered On: 12/28/2018 8:52 EST Performed On: 12/28/2018 8:52 EST by CHAVO VALDES RN Discharge Process Patient Disposition : Admit/Observe Personal Belongings With Patient : Yes CHAVO VALDES RN - 12/28/2018 8:52 EST Admission, ED Nurse Report Accepted By : Report called to Leidy SALCEDO transported to [facility] Nurse Report Acceptance Time : 12/28/2018 8:52 EST `Nurse Report (Hand Off) : Called CHAVO VALDES RN - 12/28/2018 8:52 EST documented in this encounter Plan of Treatment Not on file documented as of this encounter Visit Diagnoses Not on filedocumented in this encounter Care Teams Dispatch Clerk Relationship Specialty Start Date End Date MavisBarEmily ordonez [address] [place] [address] [place] [address] PCP - General 05/14/22 06/09/24 [facility], Provider Not In The System, [place] [address] PCP - General 07/18/24 Lolita Belcher [address] [place] [address] [facility], [address] [place] [address] Advanced Registered Nurse Practitioner Primary Care 06/10/24 documented as of this encounter
--- OUTSIDE RECORDS SUMMARY | 2024-12-14 12:21 | XMS_ITS | Encounter Summary ---
Author Organization [employer] ([place], [place], [place], [place]) Address [address] [place] [address] Care Team Providers Care Camper Assembler Name Role Phone Emily Estrada Primary Care Provider Unavail able [facility], Provider Not In The System Primary Care Provider Unavailable Encounter Details Date Type Department Care Team (Late st Contact Info) Description 12/28/2018 Transcribed Document [facility] [place] [address] [place] [address] ProviderJodie MD [address] [place] [address] Social History Tobacco Use Types Packs/Day Years Used Date Smoking Tobacco: Never Assessed Sex and Gender Information Value Date Recorded Sex Assigned at Not on file Legal Sex Male 4:10 PM CDT Gender Identity Not on file Sexual Orientation Straight 05/21/2022 1: 57 PM CDT documented as of this encounter Miscellaneous Notes * Cerner Conversion Note - Jodie ProviderMD - 12/28/2018 5:10 AM HEAVY EQUIPMENT OPERATOR APPRENTICE [place] Suicide Severity Rating Scale (C-SSRS) Entered On: 12/28/2018 5:45 EST Performed On: 12/28/2018 5:42 EST by CHAVO MENDOZA RN [place] Suicide Severity Rating Scale (C-SSRS) CSSRS Past Month Wish to be : No CSSRS Past Month Suicidal Thoughts : No CSSRS Lifetime Suicide Behavior : No Suicide Severity Rating Score : 0 Suicide Severity Rating : No Additional Care Required at this time Thoughts of Harming/Killing Others : No CHAVO MENDOZA RN - 12/28/2018 5:42 EST Electronically signed by Interface, [facility] Conversion Bankruptcy Paralegal Cerner at 06/03/2022 10:28 PM CDT documented in this encounter Plan of Treatment Not on file documented as of this encounter Visit Diagnoses Not on filedocumented in this encounter Care Teams Camper Assembler Relationship Specialty Start Date End Date DayAbebaBraEmily ordonez [address] [place] [phone] PCP - General 05/14/22 06/09/24 [facility], Provider Not In The System, [place] [address] PCP - General 07/18/24 Lolita Belcher [address] [place] [address] [place] [address] Advanced Registered Nurse Practitioner Primary Care 06/10/24 documented as of this encounter
--- OUTSIDE RECORDS SUMMARY | 2024-12-14 12:21 | XMS_ITS | Encounter Summary ---
Author Organization [employer] ([place], [place], [place], [place]) Address [address] [place] [address] Care Team Providers Care Rn Maternity Name Role Phone Emily Estrada Primary Care Provider Unavail able [facility], Provider Not In The System Primary Care Provider Unavailable Encounter Details Date Type Department Care Team (Late st Contact Info) Description 12/28/2018 Transcribed Document [facility] [place] Family Medicine [address] [place] [address] ProviderJodie MD [address] [place] [address] Social History Tobacco Use Types Packs/Day Years Used Date Smoking Tobacco: Never Assessed Sex and Gender Information Value Date Recorded Sex Assigned at Not on file Legal Sex Male 4:10 PM CDT Gender Identity Not on file Sexual Orientation Straight 05/21/2022 1: 57 PM CDT documented as of this encounter Miscellaneous Notes * Cerner Conversion Note - Jodie ProviderMD - 12/28/2018 11:22 AM PRODUCT SALES REPRESENTATIVE Initial Discharge Planning Entered On: 12/28/2018 11:25 EST Performed On: 12/28/2018 11:22 EST by FORD BERMAN Rn-Geology Instructor Initial Assessment I Previously Documented Living Environment : No qualifying data available. Living Situation : Home Patient Lives With : Spouse Emergency Contact #1 : Kelsie Germain Emergency Contact #1 Emergency Contact #1 Relationship : Emergency Contact #2 : na Emergency Contact #2 Phone Number : na Emergency Contact #2 Relationship : sergio FORD BERMAN Rn-Geology Instructor - 12/28/2018 11:22 EST Initial Assessment II Sensory and Motor Deficits : None Current Home Treatments and Equipment : None FORD BERMAN Rn-Geology Instructor - 12/28/2018 11:22 EST Discharge Needs I Anticipated Discharge Date : 12/28/2018 EST Current Home Treatment/Equipment : Current Home Treatment/Equipment No qualifying data available. Post Acute/Home Treatments : None Documentation Status Complete : Yes FORD BERMAN Rn-Geology Instructor - 12/28/2018 11:22 EST Discharge Needs II Professional Skilled Services : Professional Skilled Services No qualifying data available. Needs Assistance with Transportation : No Discharge Options Discussed with Patient : Outpatient services FORD BERMAN Rn-Geology Instructor - 12/28/2018 11:22 EST Narrative Note Narrative [...] way to pick him up. FORD BERMAN Rn-Geology Instructor - 12/28/2018 11:22 EST Electronically signed by Jane [facility] Conversion Forcer Maker Cerner at 06/03/2022 10:39 PM CDT documented in this encounter Plan of Treatment Not on file documented as of this encounter Visit Diagnoses Not on filedocumented in this encounter Care Teams Rn Maternity Relationship Specialty Start Date End Date Emily Estrada [address] [facility] [address] [place] [address] PCP - General 05/14/22 06/09/24 [facility], Provider Not In The System, [place] [address] PCP - General 07/18/24 Lolita Belcher [address] [place] [address] [facility], [address] [place] [address] Advanced Registered Nurse Practitioner Primary Care 06/10/24 documented as of this encounter
--- OUTSIDE RECORDS SUMMARY | 2024-12-14 12:21 | XMS_ITS | Encounter Summary ---
Author Organization [employer] ([place], [place], [place], [place]) Address [address] [place] [address] Care Team Providers Care Fast Food Attendant Name Role Phone Emily Estrada Primary Care Provider Unavail able [facility], Provider Not In The System Primary Care Provider Unavailable Encounter Details Date Type Department Care Team (Late st Contact Info) Description 12/28/2018 Transcribed Document [facility] [place] [address] [place] [address] ProviderJodie MD [address] [place] [address] Social History Tobacco Use Types Packs/Day Years Used Date Smoking Tobacco: Never Assessed Sex and Gender Information Value Date Recorded Sex Assigned at Not on file Legal Sex Male 4:10 PM CDT Gender Identity Not on file Sexual Orientation Straight 05/21/2022 1: 57 PM CDT documented as of this encounter Miscellaneous Notes * Cerner Conversion Note - Jodie ProviderMD - 12/28/2018 5:10 AM VOLLEYBALL COMMENTATOR ED Triage Entered On: 12/28/2018 5:23 EST Performed On: 12/28/2018 5:18 EST by Khloe Fletcher, CERTIFIED FLIGHT INSTRUCTOR Triage Across the Room Triage Date/Time : 12/28/2018 5:18 EST Chief Complaint : c/o lower back pain radiating around to lower abd; Pt dx w/ rt kidney stone on Thursday at [facility] [address] scan; appt to see Dr. Young on Thursday Khloe FletcherMATIAS - 12/28/2018 5:18 EST DCP GENERIC CODE Tracking Acuity : 3 - Urgent Tracking Group : [facility] ED Khloe Fletcher RN - 12/28/2018 [...] 12/28/2018 05:24:00 EST) Problems(Active) Gout (SNOMED CT :272651951 ) Name of Problem: Gout ; Recorder: Roseanna Humphrey RN; Confirmation: Confirmed ; Classification: Patient Stated ; Code: 266346305 ; Contributor System: PowerChart ; Last Updated: 12/11/2016 1:05 EDT ; Life Cycle Date: 12/11/2016 ; Life Cycle Status: Active ; Vocabulary: SNOMED CT High cholesterol (SNOMED CT :77620399 ) Name of Problem: High cholesterol ; Recorder: Roseanna Humphrey RN; Confirmation: Confirmed ; Classification: Patient Stated ; Code: 21569925 ; Contributor System: Environmental OperationsChart ; Last Updated: 12/11/2016 1:05 EDT ; Life Cycle Date: 12/11/2016 ; Life Cycle Status: Active ; Vocabulary: SNOMED CT Hypertension (SNOMED CT :0619308629 ) Name of Problem: Hypertension ; Recorder: Roseanna Humphrey RN; Confirmation: Confirmed ; Classification: Patient Stated ; Code: 7533752191 ; Contributor System: PowerChart ; Last Updated: 12/11/2016 1:05 EDT ; Life Cycle Date: 12/11/2016 ; Life Cycle Status: Active ; Vocabulary: SNOMED CT Kidney stone (SNOMED CT :951955782 ) Name of Problem: Kidney stone ; Recorder: Roseanna Humphrey RN; Confirmation: Confirmed ; Classification: Patient Stated ; Code: 949679479 ; Contributor System: PowerChart ; Last Updated: 12/11/2016 1:06 EDT ; Life Cycle Date: 12/11/2016 ; Life Cycle Status: Active ; Vocabulary: SNOMED CT NV (myocardial infarction) (SNOMED CT :36243363 ) Name of Problem: NV (myocardial infarction) ; Recorder: Roseanna Humphrey RN; Confirmation: Confirmed ; Classification: Patient Stated ; Code: 28163211 ; Contributor System: PowerChart ; Last Updated: 12/11/2016 1:06 EDT ; Life Cycle Date: 12/11/2016 ; Life Cycle Status: Active ; Vocabulary: SNOMED CT Thyroid nodule (SNOMED CT :469357711 ) Name of Problem: Thyroid nodule ; Recorder: Roseanna Humphrey RN; Confirmation: Confirmed ; Classification: Patient Stated ; Code: 871561415 ; Contributor System: PowerChart ; Last Updated: 12/11/2016 1:06 EDT ; Life Cycle Date: 12/11/2016 ; Life Cycle Status: Active ; Vocabulary: SNOMED CT Torn meniscus (SNOMED CT :0350113747 ) Name of Problem: Torn meniscus ; Recorder: Roseanna Humphrey RN; Confirmation: Confirmed ; Classification: Patient Stated ; Code: 7323367894 ; Contributor System: PowerChart ; Last Updated: 12/11/2016 1:06 EDT ; Life Cycle Date: 12/11/2016 ; Life Cycle Status: Active ; Vocabulary: SNOMED CT Diagnoses(Active) Flank pain Date: 12/28/2018 ; Diagnosis Type: Reason For Visit ; Confirmation: Complaint of ; Clinical Dx: Flank pain ; Classification: Medical ; Clinical Service: Non-Specified ; Code: PNED ; Probability: 0 ; Diagnosis Code: [id number] ED Height and Weight Height Source : Stated Height Entry Format : [place] Height, Feet : 6 ft(Converted to: 183 cm, 72 Inch) Height, Inches : 1 Inch(Converted to: 0 ft 1 Inch, 2.54 cm) Clinical Height : 185.42 cm Weight Source, ED : Critical estimated dosing weight Weight Entry Format : [place] Weight, Pounds : 245 lb Clinical Dosing Weight : 111.36 kg Body Surface Area (BSA) : 2.35 m2 Body Mass Index : 32.4 kg/m2 (HI) [place] Body Weight (IBW) : 78.88 kg Khloe [...] on filedocumented in this encounter Care Teams Fast Food Attendant Relationship Specialty Start Date End Date Emily Estrada [address] [place] [phone] PCP - General 05/14/22 06/09/[address] [facility], Provider Not In The System, [place] [address] PCP - General 07/18/24 Lolita Belcher [address] [place] [address], [address] [place] [address] Advanced Registered Nurse Practitioner Primary Care 06/10/24 documented as of this encounter
--- OUTSIDE RECORDS SUMMARY | 2024-12-14 12:21 | XMS_ITS | Encounter Summary ---
Author Organization [employer] ([place], [place], [place], [place]) Address [address] [place] [address] Care Team Providers Care Security Assurance Specialist Name Role Phone Emily Estrada Primary Care Provider Unavail able [facility], Provider Not In The System Primary Care Provider Unavailable Encounter Details Date Type Department Care Team (Late st Contact Info) Description 12/29/2018 Transcribed Document [facility] [place] Family Medicine [address] [place] [address] ProviderJodie MD [address] [place] [address] Social History Tobacco Use Types Packs/Day Years Used Date Smoking Tobacco: Never Assessed Sex and Gender Information Value Date Recorded Sex Assigned at Not on file Legal Sex Male 4:10 PM CDT Gender Identity Not on file Sexual Orientation Straight 05/21/2022 1: 57 PM CDT documented as of this encounter Miscellaneous Notes * Cerner Conversion Note - Jodie ProviderMD - 12/29/2018 11:00 AM PSYCHIATRY ADULT PHYSICIAN UM Authorization Entered On: 12/29/2018 11:00 EST Performed On: 12/29/2018 11:00 EST by TOMASZ JEAN-BAPTISTE RN-Utilization Review Primary Insurance Authorization Authorization and Policy Numbers : Insurance 1 Health Plan: MEDICARE Policy Number: [id number] Authorization Number: Insurance 2 Health Plan: AARP N Policy Number: [id number] Authorization Number: Insurance Primary Name : MEDICARE Policy Number: [id number] Authorized Service Begin Date-Primary : 12/28/2018 EST Historical Authorization Comments-Primary : No Authorization Comments Found TOMASZ JEAN-BAPTISTE, RN-Utilization Review - 12/29/2018 11:00 EST documented in this encounter Plan of Treatment Not on file documented as of this encounter Visit Diagnoses Not on filedocumented in this encounter Care Teams Security Assurance Specialist Relationship Specialty Start Date End Date Emily Estrada [address] [place] [phone] PCP - General 05/14/22 06/09/24 [facility], Provider Not In The System, [place] [address] PCP - General 07/18/24 Lolita Belcher [address], [address] [place] [address] Advanced Registered Nurse Practitioner Primary Care 06/10/24 documented as of this encounter
--- OUTSIDE RECORDS SUMMARY | 2024-12-14 12:21 | XMS_ITS | Encounter Summary ---
Author Organization [employer] ([place], [place], [place], [place]) Address [address] [place] [address] Care Team Providers Care Car Pusher Name Role Phone Emily Estrada Primary Care Provider Unavail able [facility], Provider Not In The System Primary Care Provider Unavailable Encounter Details Date Type Department Care Team (Late st Contact Info) Description 12/28/2018 Transcribed Document [facility] [place] Family Medicine [address] [place] [address] ProviderJodie MD [address] [place] [address] Social History Tobacco Use Types Packs/Day Years Used Date Smoking Tobacco: Never Assessed Sex and Gender Information Value Date Recorded Sex Assigned at Not on file Legal Sex Male 4:10 PM CDT Gender Identity Not on file Sexual Orientation Straight 05/21/2022 1: 57 PM CDT documented as of this encounter Miscellaneous Notes * Cerner Conversion Note - Jodie ProviderMD - 12/28/2018 10:56 AM BLENDING TANK HELPER Patient: TAY THOMAS Age: 63 Years Sex: [...] pain continued and presented this morning to [facility] for further evaluation. CT showed a [...] Information Primary Care Physician - DESIREE LEE MD-[facility] Attending Physician - IMER PIZARRO MD-INT [...] # 0.84 x10(3)/uL (Low) 12/28/2018 05:37 EST Placer % 7.6 % 12/28/2018 05:37 EST Placer # 0.77 K/uL 12/28/2018 05:37 EST Eos [...] Appearance CLEAR2 12/28/2018 05:45 EST Urine Specific [place] 1.023 12/28/2018 05:45 EST Urine pH Dipstick [...] 12/28/2018 05:45 EST Electronically signed by Interface, [facility] Conversion Rail Car Repair Carman Cerner at 06/03/2022 10:53 PM CDT documented in this encounter Plan of Treatment Not on file documented as of this encounter Visit Diagnoses Not on filedocumented in this encounter Care Teams Car Pusher Relationship Specialty Start Date End Date MavisBarEmily ordonez [address] [place] [phone] PCP - General 05/14/22 06/09/24 [facility], Provider Not In The System, [place] [address] PCP - General 07/18/24 Lolita Belcher [address] [place] [address] [facility], [address] [place] [address] Advanced Registered Nurse Practitioner Primary Care 06/10/24 documented as of this encounter
--- OUTSIDE RECORDS SUMMARY | 2024-12-14 12:21 | XMS_ITS | Encounter Summary ---
Author Organization [employer] ([place], [place], [place], [place]) Address [address] [place] [address] Care Team Providers Care Vegetable Cook Name Role Phone Emily Estrada Primary Care Provider Unavail able [facility], Provider Not In The System Primary Care Provider Unavailable Encounter Details Date Type Department Care Team (Late st Contact Info) Description 12/28/2018 Transcribed Document [facility] [place] [address] [place] [address] ProviderJodie MD [address] [place] [address] Social History Tobacco Use Types Packs/Day Years Used Date Smoking Tobacco: Never Assessed Sex and Gender Information Value Date Recorded Sex Assigned at Not on file Legal Sex Male 4:10 PM CDT Gender Identity Not on file Sexual Orientation Straight 05/21/2022 1: 57 PM CDT documented as of this encounter Miscellaneous Notes * Cerner Conversion Note - Jodie ProviderMD - 12/28/2018 5:10 AM FISHING FLOATS ASSEMBLER ED Assessment Entered On: 12/28/2018 5:34 EST Performed On: 12/28/2018 5:26 EST by CHAVO MENDOZA, SENIOR PRODUCT ENGINEER Quick Look Assessment Level of Consciousness : Alert, Awake Affect/Behavior : Appropriate, Cooperative, Irritable Orientation : Oriented x 4 Skin Temperature : Warm Skin Description : Normal for ethnicity CHAVO MENDOZA RN - 12/28/2018 5:26 EST ED General-Functional Assess Communication Barrier : None Primary Language : Austrian Any Spiritual/Cultural Needs or Requests : No [...] 12/28/2018 5:26 EST Electronically signed by Jane, [facility] Conversion Regulatory Affairs Consultant Cerner at 06/03/2022 10:29 PM CDT documented in this encounter Plan of Treatment Not on file documented as of this encounter Visit Diagnoses Not on filedocumented in this encounter Care Teams Vegetable Cook Relationship Specialty Start Date End Date Emily Estrada [address] [phone] PCP - General 05/14/22 06/09/24 [facility], Provider Not In The System, [place] [address] PCP - General 07/18/24 Lolita Belcher [address] [place] [address] [facility], [address] [place] [id number] Advanced Registered Nurse Practitioner Primary Care 06/10/24 documented as of this encounter
--- OUTSIDE RECORDS SUMMARY | 2024-12-14 12:21 | XMS_ITS | Encounter Summary ---
Author Organization [employer] ([place], [place], [place], [place]) Address [address] [place] [address] Care Team Providers Care Associate Director Name Role Phone Emily Esrtada Primary Care Provider Unavail able [facility], Provider Not In The System Primary Care Provider Unavailable Encounter Details Date Type Department Care Team (Late st Contact Info) Description 12/28/2018 Transcribed Document [facility] [place] [address] [place] [address] ProviderJodie MD [address] [place], [place] [address] Social History Tobacco Use Types Packs/Day Years Used Date Smoking Tobacco: Never Assessed Sex and Gender Information Value Date Recorded Sex Assigned at Not on file Legal Sex Male 4:10 PM CDT Gender Identity Not on file Sexual Orientation Straight 05/21/2022 1: 57 PM CDT documented as of this encounter Miscellaneous Notes * Cerner Conversion Note - Jodie ProviderMD - 12/28/2018 11:48 AM COLOR CORRECTOR [facility] [place] [address] TAY THOMAS :1955 Visit Time:12/28/2018 Your Visit Summary Your Care Team Admitting Physician - VLAD TAYLOR MD-[facility] PHY, UNKNOWN IMER PIZARRO MD-INT Attending Physician - VLAD TAYLOR MD-IMER ARREDONDO MD-INT Primary Care Physician - DESIREE LEE MD-[facility] Referring Physician - VLAD TAYLOR MD-EM[facility] Your Diagnosis Flank pain Genitourinary Left ureteral stone These Are Your Goals to get rid of the stones and pain. Discharge Vitals Temperature 36.7 ??C Respiratory Rate 18 Blood Pressure 125/77 What to do next Follow-Up Appointments Follow Up with VLAD LEPE MD-URO When 01/07/2019 12:00 AM EST Comments Call for follow up appointment Where: [address] [facility] [address] [place] [id number]- Follow Up with Follow up with primary [...] Rhubarb. ? Beets. ? Potato chips and filipino fries. ? Nuts. ??? If you regularly take a diuretic medicine, make sure to eat at least 1???2 fruits or vegetables high in potassium each day. These include: ? Avocado. ? Banana. ? [place], prune, carrot, or tomato juice. ? Baked [...] Casseroles. Pizza. Lasagna. Frozen meals. Potato chips. Russian fries. Summary ??? You can reduce your [...] 05/30/2011 Document Revised: 01/13/2017 Document Reviewed: 01/13/2017 [employer] Interactive Patient Education ?? 2019 [employer] Inc. [...] Rhubarb. ? Beets. ? Potato chips and filipino fries. ? Nuts. ??? If you regularly take a diuretic medicine, make sure to eat at least 1???2 fruits or vegetables high in potassium each day. These include: ? Avocado. ? Banana. ? Talbot, prune, carrot, or tomato juice. ? Baked [...] Casseroles. Pizza. Lasagna. Frozen meals. Potato chips. Russian fries. Summary ??? You can reduce your [...] 05/30/2011 Document Revised: 01/13/2017 Document Reviewed: 01/13/2017 [employer] Interactive Patient Education ?? 2019 [employer] Kidney Stones Kidney stones (urolithiasis) are [...] kidney stones in the future. ??? Take rlyo-vih-qutqthw and prescription medicines only as told by [...] 02/02/2006 Document Revised: 07/16/2017 Document Reviewed: 07/18/2016 [employer] Interactive Patient Education ?? 2019 [employer] Emergency Awareness and Preventative Care STROKE [...] Assistance with quitting is available by contacting 6-779-FQRUNOW. This is a free resource providing counseling, support, and referral. Or you may contact your personal physician. [employer] Suicide Prevention Lifeline: The National Suicide Prevention [...] range between ( 0.0 and 7.0 ) Loving #: 0.77 K/uL -- Normal range between ( 0.16 and 1.00 ) Eos #: 0.02 x10(3)/uL -- Normal range between ( 0.00 and 0.80 ) Loving %: 7.6 % -- Normal range between [...] /LPF Urine Bilirubin Dipstick: Negative Urine Specific [place]: 1.023 -- Normal range between ( 1.005 [...] was given the opportunity to ask questions. Patient/Antique Collector Name: Patient/Antique Collector Signature: Relationship to Patient: Clinician/Hospital Antique Collector Signature: Date: documented in this encounter Plan of Treatment Not on file documented as of this encounter Visit Diagnoses Not on filedocumented in this encounter Care Teams Associate Director Relationship Specialty Start Date End Date Emily sEtrada [address] [facility] [address] AD[address] [place] [phone] PCP - General 05/14/22 06/09/24 [facility], Provider Not In The System, [place] [address] PCP - General 07/18/[address] [place] [address], [address] [place] [id number] Advanced Registered Nurse Practitioner Primary Care 06/10/24 documented as of this encounter
--- OUTSIDE RECORDS SUMMARY | 2024-12-14 12:21 | XMS_ITS | Encounter Summary ---
Author Organization [employer] ([place], [place], [place], [place]) Address [address] [place] [address] Care Team Providers Care Knitter Hand Name Role Phone Emily Estrada Primary Care Provider Unavail able [facility], Provider Not In The System Primary Care Provider Unavailable Encounter Details Date Type Department Care Team (Late st Contact Info) Description 12/28/2018 Transcribed Document [facility] [place] Family Medicine [address] [place] [address] ProviderJodie MD [address] [place] [address] Social History Tobacco Use Types Packs/Day Years Used Date Smoking Tobacco: Never Assessed Sex and Gender Information Value Date Recorded Sex Assigned at Not on file Legal Sex Male 4:10 PM CDT Gender Identity Not on file Sexual Orientation Straight 05/21/2022 1: 57 PM CDT documented as of this encounter Miscellaneous Notes * [employer]ner Conversion Note - Historical ProviderMD - 12/28/2018 5:26 AM DERMATOLOGICAL SURGEON Patient: TAY THOMAS Age: 63 years Sex: [...] and vomiting. He was seen at [facility] 2 days ago and diagnosed to 4.6 [...] IV Push, 1-Time, PRN: Nausea/Vomiting Prescriptions Prescribed [place] 7.5 mg-325 mg oral tablet: 1 Tab, [...] (8) Gout High cholesterol Hypertension Kidney stone PR (myocardial infarction) S/P cholecystectomy Thyroid nodule Torn [...] EST Height Source Stated Height Entry Format [place] Height/Length, HONDURAN (ft) 6 ft Height/Length HONDURAN 1 Inch CLINICALHEIGHT 185.42 cm [place] Body Weight 78.88 kg Weight Source, ED Critical estimated dosing weight Weight Entry Format [place] Weight [place] lb 245 lb CLINICALWEIGHT 111.36 kg Body [...] Color Yellow Urine Appearance Clear Urine Specific [place] 1.023 Urine pH Dipstick 5.5 LOW Urine [...] % LOW Lymph # 0.84 x10(3)/uL LOW [place] % 7.6 % [place] # 0.77 K/uL Eos % 0.2 % Eos # 0.02 x10(3)/uL Baso % 0.6 % Baso # 0.06 x10(3)/uL Slide Review No IG# 0.07 x10(3)/uL HI IG% 0.70 % HI . Radiology results: NAME: TAY THOMAS / SEX: 1955 / Male MRN / ACC#: [id number] / [id number] ORDERING PHYSICIAN: Ordering Provider, Update EXAM REQUESTED: [id number]--UY ABDOMEN & PELVIS W/O CONTRAST FACILITY: [facility] DATE: 12/28/2018 RADIOLOGIST NAME: Erick [...] Med-Surg, Admitting: IMER PIZARRO MD-INT, Attending: IMER PIZRARO MD-INT , Patient care transitioned to: Time: 12/28/2018 07:07:00, BRYCE KELLY MD. Counseled: Patient, Family, Regarding diagnosis, Regarding diagnostic results, Regarding treatment plan, Regarding prescription, Patient indicated understanding of instructions. documented in this encounter Plan of Treatment Not on file documented as of this encounter Visit Diagnoses Not on filedocumented in this encounter Care Teams Knitter Hand Relationship Specialty Start Date End Date Emily Estrada [address] [place] [address] [place] [phone] PCP - General 05/14/22 06/09/24 [facility], Provider Not In The System, [place] [address] PCP - General 07/18/24 Lolita Belcher [facility] [address], [address] [place] [address] Advanced Registered Nurse Practitioner Primary Care 06/10/24 documented as of this encounter
--- OUTSIDE RECORDS SUMMARY | 2024-12-14 12:21 | XMS_ITS | Encounter Summary ---
Author Organization [employer] ([place], [place], [place], [place]) Address [address] [place] [address] Care Team Providers Care Area Representative Name Role Phone Emily Estrada Primary Care Provider Unavail able [facility], Provider Not In The System Primary Care Provider Unavailable Encounter Details Date Type Department Care Team (Late st Contact Info) Description 12/28/2018 Transcribed Document [facility] [place] Family Medicine [address] [place] [address] ProviderJodie MD [address] [place] [address] Social History Tobacco Use Types Packs/Day Years Used Date Smoking Tobacco: Never Assessed Sex and Gender Information Value Date Recorded Sex Assigned at Not on file Legal Sex Male 4:10 PM CDT Gender Identity Not on file Sexual Orientation Straight 05/21/2022 1: 57 PM CDT documented as of this encounter Miscellaneous Notes * Cerner Conversion Note - Jodie ProviderMD - 12/28/2018 11:44 AM POWERHOUSE ELECTRICIAN Nursing Discharge Summary Entered On: 12/28/2018 11:45 [...] 12/28/2018 11:44 EST Electronically signed by Jane, [facility] Conversion Space Scheduler Cerner at 06/03/2022 10:40 PM CDT documented in this encounter Plan of Treatment Not on file documented as of this encounter Visit Diagnoses Not on filedocumented in this encounter Care Teams Area Representative Relationship Specialty Start Date End Date Emily Estrada [address] [facility] [address] [place] [address] PCP - General 05/14/22 06/09/24 [facility], Provider Not In The System, [place] [address] PCP - General 07/18/24 Lolita Belcher [address] [place] [address] [facility], [address] [place] [address] Advanced Registered Nurse Practitioner Primary Care 06/10/24 documented as of this encounter
--- OUTSIDE RECORDS SUMMARY | 2024-12-14 12:21 | XMS_ITS | Encounter Summary ---
Author Organization [employer] ([place], [place], [place], [place]) Address [address] [place] [address] Care Team Providers Care Sports Umpire Name Role Phone Emily Estrada Primary Care Provider Unavail able [facility], Provider Not In The System Primary Care Provider Unavailable Encounter Details Date Type Department Care Team (Late st Contact Info) Description 12/28/2018 Transcribed Document [facility] [place] Family Medicine [address] [place] [address] ProviderJodie MD [address] [place] [address] Social History Tobacco Use Types Packs/Day Years Used Date Smoking Tobacco: Never Assessed Sex and Gender Information Value Date Recorded Sex Assigned at Not on file Legal Sex Male 4:10 PM CDT Gender Identity Not on file Sexual Orientation Straight 05/21/2022 1: 57 PM CDT documented as of this encounter Miscellaneous Notes * Cerner Conversion Note - Historical ProviderMD - 12/28/2018 11:23 AM NET WEB DEVELOPER Patient: TAY THOMAS Age: 63 Years Sex: Male : 1955 Admit Date 12/28/2018 08:06 Discharge Date 12/28/18 Primary Care Provider DESIREE LEE MD-[facility] Discharge Diagnosis Acute left sided hydronephrosis and hydroureter secondary to a 4 mm distal left ureteral stone -pain control -IVF -flomax -passed stone -urology consult, discussed w Dr. Suárez -no need for abx therapy Hypothyroidism -continue levothyroxine Gout/Uric acid stones -continue allopurinol Anemia -felt dilutional -monitor [1] Studies Radiology Results (Last 48 hours) [id number] -- 12/28/2018 08:06 CT Abdomen Pelvis WO [...] began on Thursday morning. He went to [facility] on Thursday and was diagnosed with a 4.6 cm renal stone and given pain medicine and follow up with Dr. Lepe his primary urologist on [place]. Patient states that overnight his pain intensified, he had a low-grade temperature (he did not use a thermometer), he began to have nausea with vomiting and thus presented to [facility]. In the ER he was [...] improved, seen by urology and ok to [place]. Has fu with Dr. Lepe. Pt has [...] 12/28/2018 11:11 EST Electronically signed by Jane [facility] Conversion Pastoral Counselor Cerner at 06/03/2022 10:28 PM CDT documented in this encounter Plan of Treatment Not on file documented as of this encounter Visit Diagnoses Not on filedocumented in this encounter Care Teams Sports Umpire Relationship Specialty Start Date End Date Emily Estrada [address] [place] [address] PCP - General 05/14/22 06/09/24 [facility], Provider Not In The System, [place] [address] PCP - General 07/18/24 Lolita Belcher [address], [address] [address] Advanced Registered Nurse Practitioner Primary Care 06/10/24 documented as of this encounter
--- OUTSIDE RECORDS SUMMARY | 2024-12-14 12:21 | XMS_ITS | Encounter Summary ---
Author Organization [employer] ([place], [place], [place], [place]) Address [address] [place] [address] Care Team Providers Care Home Health Administrator Name Role Phone Emily Estrada Primary Care Provider Unavail able [facility], Provider Not In The System Primary Care Provider Unavailable Encounter Details Date Type Department Care Team (Late st Contact Info) Description 12/28/2018 Transcribed Document [facility] [place] Family Medicine [address] [place] [address] ProviderJodie MD [address] [place] [address] Social History Tobacco Use Types Packs/Day Years Used Date Smoking Tobacco: Never Assessed Sex and Gender Information Value Date Recorded Sex Assigned at Not on file Legal Sex Male 4:10 PM CDT Gender Identity Not on file Sexual Orientation Straight 05/21/2022 1: 57 PM CDT documented as of this encounter Miscellaneous Notes * Cerner Conversion Note - Jodie ProviderMD - 12/28/2018 11:11 AM FIBERGLASS AUTO BODY REPAIRER Patient: TAY THOMAS Age: 63 Years Sex: Male : 1955 Chief Complaint c/o lower back pain radiating around to lower abd; Pt dx w/ rt kidney stone on Thursday at [facility] [place] [address] scan; appt to see Dr. Young on Thursday Primary Care Provider DESIREE LEE MD-[facility] Urologist: Dr. Young History of Present [...] began on Thursday morning. He went to [facility] on Thursday and was diagnosed with a 4.6 cm renal stone and given pain medicine and follow up with Dr. Young his primary urologist on Thursday. Patient states that overnight his pain intensified, he had a low-grade temperature (he did not use a thermometer), he began to have nausea with vomiting and thus presented to [facility]. In the ER he was found [...] Ongoing Gout High cholesterol Hypertension Kidney stone [place] (myocardial infarction) S/P cholecystectomy Thyroid nodule Torn [...] Diagnostic Results Radiology Results (Last 48 hours) [id number] -- 12/28/2018 08:06 CT Abdomen Pelvis WO [...] # 0.84 x10(3)/uL (Low) 12/28/2018 05:37 EST [place] % 7.6 % 12/28/2018 05:37 EST [place] # 0.77 K/uL 12/28/2018 05:37 EST Eos [...] Appearance CLEAR2 12/28/2018 05:45 EST Urine Specific [place] 1.023 12/28/2018 05:45 EST Urine pH Dipstick [...] on filedocumented in this encounter Care Teams Home Health Administrator Relationship Specialty Start Date End Date Emily Estrada [address] [place] [address] PCP - General 05/14/22 06/09/24 [facility], Provider Not In The System, [place] [address] PCP - General 07/18/24 Lolita Belcher [address] [place] [address], [address] [address] Advanced Registered Nurse Practitioner Primary Care 06/10/24 documented as of this encounter
--- OUTSIDE RECORDS SUMMARY | 2024-12-14 12:21 | XMS_ITS | Encounter Summary ---
Author Organization [employer] ([place], [place], [place], [place]) Address [address] [place] [address] Care Team Providers Care Customer Development Representative Name Role Phone Emily Estrada Primary Care Provider Unavail able [facility], Provider Not In The System Primary Care Provider Unavailable Encounter Details Date Type Department Care Team (Late st Contact Info) Description 12/28/2018 Transcribed Document [facility] [facility] [place] [address] [place] [address] ProviderJodie MD [address] [place] [address] Social History Tobacco Use Types Packs/Day Years Used Date Smoking Tobacco: Never Assessed Sex and Gender Information Value Date Recorded Sex Assigned at Not on file Legal Sex Male 4:10 PM CDT Gender Identity Not on file Sexual Orientation Straight 05/21/2022 1: 57 PM CDT documented as of this encounter Miscellaneous Notes * Cerner Conversion Note - Jodie ProviderMD - 12/28/2018 9:54 AM SHERIFF'S SERGEANT Shift Summary Note Entered On: 12/28/2018 9:54 [...] filedocumented in this encounter Care Teams Customer Development Representative Relationship Specialty Start Date End Date Emily Estrada [address] [facility] [address] [place] [address] PCP - General 05/14/22 06/09/24 [facility], Provider Not In The System, [place] [address] PCP - General 07/18/24 Lolita Belcher [address] [facility], [address] [place] [address] Advanced Registered Nurse Practitioner Primary Care 06/10/24 documented as of this encounter
--- OUTSIDE RECORDS SUMMARY | 2024-12-14 12:21 | XMS_ITS | Encounter Summary ---
Author Organization [employer] ([place], [place], [place], [place]) Address [address] [place] [address] Care Team Providers Care Foundry Supervisor Name Role Phone Emily Estrada Primary Care Provider Unavail able [facility], Provider Not In The System Primary Care Provider Unavailable Encounter Details Date Type Department Care Team (Late st Contact Info) Description 12/28/2018 Transcribed Document [facility] [place] Medicine [address] [place] [address] ProviderJodie MD [address] [place] [address] Social History Tobacco Use Types Packs/Day Years Used Date Smoking Tobacco: Never Assessed Sex and Gender Information Value Date Recorded Sex Assigned at Not on file Legal Sex Male 4:10 PM CDT Gender Identity Not on file Sexual Orientation Straight 05/21/2022 1: 57 PM CDT documented as of this encounter Miscellaneous Notes * Cerner Conversion Note - Jodie ProviderMD - 12/28/2018 8:37 AM ASPHALT ENGINEER Admission History, Adult Entered On: 12/28/2018 9:38 [...] Dr. Young on Thursday Primary Language : Arabic Communication Barrier : None BETTY HOPKINS RN [...] Scale Risk Level : 0-24 Low Risk [place] Fall Interventions : Adequate lighting, Bed in [...] Source : Stated Height Entry Format : [place] Height, Feet : 6 ft(Converted to: 183 cm, 72 Inch) Height, Inches : 1 Inch(Converted to: 0 ft 1 Inch, 2.54 cm) Clinical Height : 185.42 cm Weight Source : Standing scale Weight Entry Format : [place] Clinical Dosing Weight : 116.62 kg Weight, Pounds : 256 lb Weight, Ounces : 9 oz Body Surface Area (BSA) : 2.39 m2 Body Mass Index : 33.9 kg/m2 (HI) [place] Body Weight : 79 kg BETTY HOPKINS [...] BETTY HOPKINS RN - 12/28/2018 9:24 EST [place] Suicide Severity Rating Scale (C-SSRS) CSSRS Past [...] on filedocumented in this encounter Care Teams Foundry Supervisor Relationship Specialty Start Date End Date Day-Bar, Emily [address] [place] [address] PCP - General 05/14/22 06/09/24 [facility], Provider Not In The System, [place] [address] PCP - General 07/18/24 Lolita Belcher [address] [facility], [address] [place] [address] Advanced Registered Nurse Practitioner Primary Care 06/10/24 documented as of this encounter
--- OUTSIDE RECORDS SUMMARY | 2024-12-14 12:21 | XMS_ITS | Encounter Summary ---
Author Organization [employer] ([place], [place], [place], [place]) Address [address] [place] [address] Care Team Providers Care Regional Business Development Manager Name Role Phone Emily Estrada Primary Care Provider Unavail able [facility], Provider Not In The System Primary Care Provider Unavailable Encounter Details Date Type Department Care Team (Late st Contact Info) Description 12/28/2018 Transcribed Document [facility] [place] Family Medicine [address] [place] [address] ProviderJodie MD [address] [place], [place] [address] Social History Tobacco Use Types Packs/Day Years Used Date Smoking Tobacco: Never Assessed Sex and Gender Information Value Date Recorded Sex Assigned at Not on file Legal Sex Male 4:10 PM CDT Gender Identity Not on file Sexual Orientation Straight 05/21/2022 1: 57 PM CDT documented as of this encounter Miscellaneous Notes * Cerner Conversion Note - Jodie ProviderMD - 12/28/2018 11:11 AM CASING MIXER [address] , [place] [address] Patient Copy Patient Information: Name: TAY THOMAS Current Date: 12/28/2018 11:11:54 : 1955 Patient Address: [place] [address] Patient Attending Physician: IMER PIZARRO MD-INT Primary Care Provider: DESIREE LEE MD-[facility] Primary Care Provider Discharge Diagnosis: Left ureteral stone Weight on Admission: 245 lb, 0 oz Comment: Follow-up Instructions: With: Address: When: Follow up with primary care provider Within 5 to 7 days With: Address: When: VLAD LEPE MD-URO [address] [place] [address] [place] [address] 12:00 AM Comments: Call for follow up [...] Rhubarb. ? Beets. ? Potato chips and croatian fries. ? Nuts. ??? If you regularly take a diuretic medicine, make sure to eat at least 1?2 fruits or vegetables high in potassium each day. These include: ? Avocado. ? Banana. ? [place], prune, carrot, or tomato juice. ? Baked [...] Casseroles. Pizza. Lasagna. Frozen meals. Potato chips. Fijian fries. Summary ??? You can reduce your [...] 05/30/2011 Document Revised: 01/13/2017 Document Reviewed: 01/13/2017 [employer] Interactive Patient Education ? 2019 [employer] Kidney Stones Kidney stones (urolithiasis) are [...] kidney stones in the future. ??? Take xfbk-vfj-fswogie and prescription medicines only as told by [...] 02/02/2006 Document Revised: 07/16/2017 Document Reviewed: 07/18/2016 [employer] Interactive Patient Education ? 2019 [employer] CIGARETTE SMOKING: The facts are clear, cigarette smoking will shorten your life. Smoking can cause many illnesses along the way. As a healthcare provider, we recommend that you stop smoking. Assistance with quitting is available by contacting 1-238-BCDL-NOW. This is a free resource providing counseling, [...] Be sure to sign up for the [employer] patient portal, which gives you 08/09 access to your medical information ??? including these discharge instructions ??? using your computer, smartphone, or tablet. Just go to [employer] to get started. Questions? Call . [facility] would like to thank you for allowing us to assist you with your healthcare needs. WILLIAM Nascimento TERRY L, (or senior account representative) have received the above patient education materials/instructions and have verbalized understanding: Patient Signature _ Date/Time Patient Emissions Repair Technician Signature (if needed) Date/Time Clinician/Hospital Emissions Repair Technician Signature (if needed) Date/Time Electronically signed by Denia Lara Conversion Facility Environmental Technician Sofyaner at 06/03/2022 10:46 PM CDT documented in this encounter Plan of Treatment Not on file documented as of this encounter Visit Diagnoses Not on filedocumented in this encounter Care Teams Regional Business Development Manager Relationship Specialty Start Date End Date DayAbebaBarEmily ordonez [address] [facility] [address] [place] [address] PCP - General 05/14/22 06/09/24 [facility], Provider Not In The System, [place] [address] PCP - General 07/18/24 Lolita Belcher [address] [place] [facility], [address] [place] [address] Advanced Registered Nurse Practitioner Primary Care 06/10/24 documented as of this encounter
--- OUTSIDE RECORDS SUMMARY | 2024-12-14 12:21 | XMS_ITS | Encounter Summary ---
Author Organization [employer] ([place], [place], [place], [place]) Address [address] [place] [address] Care Team Providers Care Division Officer Weapons Department Name Role Phone Emily Estrada Primary Care Provider Unavail able [facility], Provider Not In The System Primary Care Provider Unavailable Encounter Details Date Type Department Care Team (Late st Contact Info) Description 12/28/2018 Transcribed Document [facility] [place] Family Medicine [address] [place] [address] ProviderJodie MD [address] [place] [address] Social History Tobacco Use Types Packs/Day Years Used Date Smoking Tobacco: Never Assessed Sex and Gender Information Value Date Recorded Sex Assigned at Not on file Legal Sex Male 4:10 PM CDT Gender Identity Not on file Sexual Orientation Straight 05/21/2022 1: 57 PM CDT documented as of this encounter Miscellaneous Notes * Cerner Conversion Note - Jodie ProviderMD - 12/28/2018 11:46 AM LEATHER TOGGLER Stroke/Warfarin Instructions Entered On: 12/28/2018 11:46 EST Performed On: 12/28/2018 11:46 EST by Maricarmen Montenegro, MATIAS Stroke/Warfarin Instructions Stroke/TIA Discharge Ins : N/A Warfarin Discharge Ins : N/A Maricarmen Montenegro RN - 12/28/2018 11:46 EST Electronically signed by Denia Lara Conversion Electronic Instrument Trades Worker Cerner at 06/03/2022 10:36 PM CDT documented in this encounter Plan of Treatment Not on file documented as of this encounter Visit Diagnoses Not on filedocumented in this encounter Care Teams Division Officer Weapons Department Relationship Specialty Start Date End Date Emily Estrada [address] [facility] [address] [place] [address] PCP - General 05/14/22 06/09/24 [facility], Provider Not In The System, [place] [address] PCP - General 07/18/24 Lolita Belcher [address] [facility], [address] [place] [address] Advanced Registered Nurse Practitioner Primary Care 06/10/24 documented as of this encounter
--- OUTSIDE RECORDS SUMMARY | 2024-12-14 12:21 | XMS_ITS | Encounter Summary ---
Author Organization [employer] ([place], [place], [place], [place]) Address [address] [place] [address] Care Team Providers Care Electrical Electronics Engineers Name Role Phone Emily Estrada Primary Care Provider Unavail able [facility], Provider Not In The System Primary Care Provider Unavailable Encounter Details Date Type Department Care Team (Late st Contact Info) Description 12/28/2018 Transcribed Document [facility] [place] [address] [place] [address] ProviderJodie MD [address] [place] [address] Social History Tobacco Use Types Packs/Day Years Used Date Smoking Tobacco: Never Assessed Sex and Gender Information Value Date Recorded Sex Assigned at Not on file Legal Sex Male 4:10 PM CDT Gender Identity Not on file Sexual Orientation Straight 05/21/2022 1: 57 PM CDT documented as of this encounter Miscellaneous Notes * Cerner Conversion Note - Jodie ProviderMD - 12/28/2018 7:58 AM BODY MAKE UP ARTIST Phone Call for Consults Entered On: 12/28/2018 8:25 EST Performed On: 12/28/2018 8:23 EST by Miguel Angel Moore, Emergency Room Industrial Health Engineer Phone Call for Consults Consult Phone Call/Page Attempt : First call Physician Requesting Consult : VLAD TAYLOR MD-[facility] Date and Time Call Returned : 12/28/2018 8:24 EST Physician Returning Call : jayla bourgeois Jared S, Emergency Room Industrial Health Engineer - 12/28/2018 8:23 EST documented in this encounter Plan of Treatment Not on file documented as of this encounter Visit Diagnoses Not on filedocumented in this encounter Care Teams Electrical Electronics Engineers Relationship Specialty Start Date End Date Emily Estrada [address] [place] [address] [place] [address] PCP - General 05/14/22 06/09/24 [facility], Provider Not In The System, [place] [address] PCP - General 07/18/24 Lolita Belcher [address], [address] [place] [id number] Advanced Registered Nurse Practitioner Primary Care 06/10/24 documented as of this encounter
--- OUTSIDE RECORDS SUMMARY | 2024-12-14 12:21 | XMS_ITS | Encounter Summary ---
Author Organization [employer] ([place], [place], [place], [place]) Address [address] [place] [address] Care Team Providers Care Performance Architect Name Role Phone Emily Estrada Primary Care Provider Unavail able [facility], Provider Not In The System Primary Care Provider Unavailable Encounter Details Date Type Department Care Team (Late st Contact Info) Description 12/28/2018 Transcribed Document [facility] [place] [address] [place] [address] ProviderJodie MD [address] [place] [address] Social History Tobacco Use Types Packs/Day Years Used Date Smoking Tobacco: Never Assessed Sex and Gender Information Value Date Recorded Sex Assigned at Not on file Legal Sex Male 4:10 PM CDT Gender Identity Not on file Sexual Orientation Straight 05/21/2022 1: 57 PM CDT documented as of this encounter Miscellaneous Notes * Cerner Conversion Note - Jodie ProviderMD - 12/28/2018 7:58 AM GUM MACHINE OPERATOR Consult Phone Call Documentation Entered On: [...] 12/28/2018 10:19 EST Electronically signed by Jane, [facility] Conversion Resource Room Teacher Cerner at 06/03/2022 10:44 PM CDT documented in this encounter Plan of Treatment Not on file documented as of this encounter Visit Diagnoses Not on filedocumented in this encounter Care Teams Performance Architect Relationship Specialty Start Date End Date Emily Estrada [address] [place] [address] [place] [address] PCP - General 05/14/22 06/09/24 [facility], Provider Not In The System, [place] [address] PCP - General 07/18/24 Lolita Belcher [address] [facility], [address] [place] [address] Advanced Registered Nurse Practitioner Primary Care 06/10/24 documented as of this encounter
--- OUTSIDE RECORDS SUMMARY | 2024-12-14 12:21 | XMS_ITS | Encounter Summary ---
Author Organization [employer] ([place], [place], [place], [place]) Address [address] [place] [address] Care Team Providers Care Interior Design Assistant Name Role Phone Emily Estrada Primary Care Provider Unavail able [facility], Provider Not In The System Primary Care Provider Unavailable Encounter Details Date Type Department Care Team (Late st Contact Info) Description 12/28/2018 Transcribed Document [facility] [place] Family Medicine [address] [place] [address] ProviderJodie MD [address] [place] [address] Social History Tobacco Use Types Packs/Day Years Used Date Smoking Tobacco: Never Assessed Sex and Gender Information Value Date Recorded Sex Assigned at Not on file Legal Sex Male 4:10 PM CDT Gender Identity Not on file Sexual Orientation Straight 05/21/2022 1: 57 PM CDT documented as of this encounter Miscellaneous Notes * Cerner Conversion Note - Jodie ProviderMD - 12/28/2018 11:46 AM BLOW MACHINE TENDER STARCH [employer]AY[employer] Patient Education Materials Follows: Dietary Guidelines to [...] Rhubarb. ? Beets. ? Potato chips and malian fries. ? Nuts. ??? If you regularly take a diuretic medicine, make sure to eat at least 1?2 fruits or vegetables high in potassium each day. These include: ? Avocado. ? Banana. ? Hope, prune, carrot, or tomato juice. ? Baked [...] Casseroles. Pizza. Lasagna. Frozen meals. Potato chips. Chilean fries. Summary ??? You can reduce your [...] 05/30/2011 Document Revised: 01/13/2017 Document Reviewed: 01/13/2017 [employer] Patient Education ? 2019 [employer]. Urology Dietary Guidelines to Help Prevent Kidney [...] Rhubarb. ? Beets. ? Potato chips and malian fries. ? Nuts. ??? If you regularly take a diuretic medicine, make sure to eat at least 1?2 fruits or vegetables high in potassium each day. These include: ? Avocado. ? Banana. ? Hope, prune, carrot, or tomato juice. ? Baked [...] Casseroles. Pizza. Lasagna. Frozen meals. Potato chips. Chilean fries. Summary ??? You can reduce your [...] 05/30/2011 Document Revised: 01/13/2017 Document Reviewed: 01/13/2017 [employer] Interactive Patient Education ? 2019 [employer] Kidney Stones Kidney stones (urolithiasis) are [...] kidney stones in the future. ??? Take zbsc-axg-lpdvdbr and prescription medicines only as told by [...] 02/02/2006 Document Revised: 07/16/2017 Document Reviewed: 07/18/2016 [employer] Patient Education ? 2019 [employer] documented in this encounter Plan of Treatment Not on file documented as of this encounter Visit Diagnoses Not on filedocumented in this encounter Care Teams Interior Design Assistant Relationship Specialty Start Date End Date Emily Estrada [address] [facility] [address] [place] [address] PCP - General 05/14/22 06/09/24 [facility], Provider Not In The System, [place] [address] PCP - General 07/18/24 Lolita Belcher [address] [place] [address] [facility], [address] [place] [address] Advanced Registered Nurse Practitioner Primary Care 06/10/24 documented as of this encounter
--- OUTSIDE RECORDS SUMMARY | 2024-12-14 12:21 | XMS_ITS | Encounter Summary ---
Author Organization [employer] ([place], [place], [place], [place]) Address [address] [place] [address] Care Team Providers Care Universal Worker Assisted Living Name Role Phone Emily Estrada Primary Care Provider Unavail able [facility], Provider Not In The System Primary Care Provider Unavailable Encounter Details Date Type Department Care Team (Late st Contact Info) Description 12/28/2018 Transcribed Document [facility] Family Medicine [address] [place] [address] ProviderJodie MD [address] [place] [address] Social History Tobacco Use Types Packs/Day Years Used Date Smoking Tobacco: Never Assessed Sex and Gender Information Value Date Recorded Sex Assigned at Not on file Legal Sex Male 4:10 PM CDT Gender Identity Not on file Sexual Orientation Straight 05/21/2022 1: 57 PM CDT documented as of this encounter Miscellaneous Notes * Cerner Conversion Note - Jodie ProviderMD - 12/28/2018 5:25 AM GIFT WRAPPER Pain Assessment Entered On: 12/28/2018 7:08 EST [...] on filedocumented in this encounter Care Teams Universal Worker Assisted Living Relationship Specialty Start Date End Date Emily Estrada [address] [place] [phone] PCP - General 05/14/22 06/09/24 [facility], Provider Not In The System, [place] [address] PCP - General 07/18/24 Lolita Belcher [address] [place] [address], [address] [place] [address] Advanced Registered Nurse Practitioner Primary Care 06/10/24 documented as of this encounter
--- OUTSIDE RECORDS SUMMARY | 2024-12-14 12:22 | XMS_ITS | Encounter Summary ---
Author Organization [employer] ([place], [place], [place], [place]) Address [address] [place] [address] Care Team Providers Care Meter Calibrator Name Role Phone Emily Estrada Primary Care Provider Unavail able [facility], Provider Not In The System Primary Care Provider Unavailable Encounter Details Date Type Department Care Team (Late st Contact Info) Description 07/30/2020 Transcribed Document [facility] [place] [address] [place] [address] ProviderJodie MD [address] [place], [place] [id number] Social History Tobacco Use Types Packs/Day Years [...] Source : Measured Height Entry Format : Benge Height, Feet : 6 ft(Converted to: 183 cm, 72 Inch) Height, Inches : 1 Inch(Converted to: 0 ft 1 Inch, 2.54 cm) Clinical Height : 185.42 cm Weight Source : Standing scale Weight Entry Format : Benge Clinical Dosing Weight : 109.86 kg Weight, Pounds : 241.7 lb Body Surface Area (BSA) : 2.33 m2 Body Mass Index : 32 kg/m2 (HI) [place] Body Weight : 79 kg Yadi Del [...] Del Angel RN - 07/30/2020 14:17 EDT [place] Suicide Severity Rating Scale (C-SSRS) CSSRS Past [...] Germain Support Person/Pt Rep Contact Information : [phone] Emergency Contact #1 : Kelsie Germain Emergency Contact #1 Emergency Contact #1 Relationship : Emergency Contact #2 : ' Emergency Contact #2 Phone Number : ' Emergency Contact #2 Relationship : ' Math Interventionist Needed : No Yadi Del Angel RN - 07/30/2020 14:34 EDT Want Family/Rep/Phys Notified of Admit : No Primary Language : Greek Communication Barrier : None Yadi Del Angel [...] on filedocumented in this encounter Care Teams Meter Calibrator Relationship Specialty Start Date End Date Emily Estrada [address] [place] [address] PCP - General 05/14/22 06/09/24 [facility], Provider Not In The System, [place] [address] PCP - General 07/18/24 Lolita Belcher [address] [place] [address] [place] [address], [address] [place] [address] Advanced Registered Nurse Practitioner Primary Care 06/10/24 documented as of this encounter
--- OUTSIDE RECORDS SUMMARY | 2024-12-14 12:22 | XMS_ITS | Encounter Summary ---
Author Organization [employer] ([place], [place], [place], [place]) Address [address] [place] [address] Care Team Providers Care Shampoo Assistant Name Role Phone Emily Estrada Primary Care Provider Unavail able [facility], Provider Not In The System Primary Care Provider Unavailable Encounter Details Date Type Department Care Team (Late st Contact Info) Description 07/30/2020 Transcribed Document [facility] [place] [address] [place] [address] ProviderJodie MD [address] [place], [place] [address] Social History Tobacco Use Types Packs/Day Years [...] these instructions at home: Medicines ??? Take otpc-vhr-fofttza and prescription medicines only as told by [...] or treat constipation, such as: ? Take krch-crx-kzaxrja or prescription medicines. ? Eat foods that [...] of blood in your urine. ??? Take lcey-beq-unewdhz and prescription medicines only as told by [...] provider. Document Revised: 10/14/2018 Document Reviewed: 10/14/2018 [employer] Patient Education ? 2020 [employer] Procedures Outpatient Surgery, Adult, Care After [...] and water are not available, use hand cone classifier tender. ? Change your dressing as told by [...] or a bad smell. Medicines ??? Take vpok-xnh-ynrfhjs and prescription medicines only as told by [...] Reviewed: 05/25/2016 Elsevier Patient Education ? 2020 [employer]. Urology Ureteroscopy Ureteroscopy is a procedure to [...] including vitamins, herbs, eye drops, creams, and jvnp-tax-siylzyr medicines. ??? Any problems you or family [...] provider. Document Revised: 01/15/2018 Document Reviewed: 11/14/2016 [employer]Like Patient Education ? 2020 [employer] documented in this encounter Plan of Treatment Not on file documented as of this encounter Visit Diagnoses Not on filedocumented in this encounter Care Teams Shampoo Assistant Relationship Specialty Start Date End Date Emily Estrada [address] [place] [address] [place] [address] PCP - General 05/14/22 06/09/24 [facility], Provider Not In The System, [place] [address] PCP - General 07/18/24 Lolita Belcher [address] [place] [address] [place] [address] Advanced Registered Nurse Practitioner Primary Care 06/10/24 documented as of this encounter
--- OUTSIDE RECORDS SUMMARY | 2024-12-14 12:22 | XMS_ITS | Encounter Summary ---
Author Organization [employer] ([place], [place], [place], [place]) Address [address] [place] [address] Care Team Providers Care Leadership Program Intern Name Role Phone Emily Estrada Primary Care Provider Unavail able [facility], Provider Not In The System Primary Care Provider Unavailable Encounter Details Date Type Department Care Team (Late st Contact Info) Description 07/30/2020 Transcribed Document [facility] [address] [place] [address] ProviderJodie MD [address] [place], [place] [address] Social History Tobacco Use Types Packs/Day Years [...] 1955 Associated Diagnoses: None Author: BLANCHE DOWNS, REPERTOIRE MANAGER Chief Complaint R ureteral stone Review of [...] L shoulder LUE weakness. Integumentary: Warm, Dry, [place]. Neurologic: Alert, Oriented. Psychiatric: Cooperative, Appropriate mood & affect. Review / Management Results review: No qualifying data available. Impression and Plan Condition: Stable. documented in this encounter Plan of Treatment Not on file documented as of this encounter Visit Diagnoses Not on filedocumented in this encounter Care Teams Leadership Program Intern Relationship Specialty Start Date End Date Emily Estrada [address] [place] [phone] PCP - General 05/14/22 06/09/24 [facility], Provider Not In The System, [place] [address] PCP - General 07/18/24 Lolita Belcher [facility] [place] [address], [address] [address] Advanced Registered Nurse Practitioner Primary Care 06/10/24 documented as of this encounter
--- OUTSIDE RECORDS SUMMARY | 2024-12-14 12:22 | XMS_ITS ---
Laboratory report Created on: October 28, 2024 TAY THOMAS : 1955 Sex: Male Author Name MALA PALMA Organization Unknown PROBLEMS Problems List Code Description N20.0 RESULTS Laboratory Orders Date Order Code Test 2024-10-19 [id number] LITHOLINK 24HR U RINE PANEL Laboratory Results Date LOINC Test Value Unit Reference Range Interpre tation 2024-10-19 69784-6 CYSTINE, URINE, QUALITATIVE CANPR NEGATIVE 2024-10-19 3167-4 URINE VOLUME (PRESERVED) 1780 ML/24 HR 500-4000 2024-10-19 40343-9 CALCIUM OXALATE SATURATION 13.98 6.00-10.00 H 2024-10-19 6874-2 CALCIUM, URINE 168 MG/24 HR <250 2024-10-19 2701-1 OXALATE, URINE 95 MG/24 HR 20-40 H 2024-10-19 6687-8 CITRATE, URINE 1102 MG/24 HR >450 2024-10-19 23175-5 CALCIUM PHOSPHAT E SATURATION .69 0.50-2.00 2024-10-19 42491-1 PH, 24 HR, URINE 6.779 5.800-6.200 H 2024-10-19 42671-1 URIC ACID SATURATION .09 <1.00 2024-10-19 3087-4 URIC ACID, URINE 425 MG/24 HR <800 2024-10-19 2956-1 SODIUM, URINE 188 MMOL/24 HR 50-150 H 2024-10-19 2829-0 POTASSIUM, URINE 76 MMOL/24 HR 20-100 2024-10-19 50989-1 MAGNESIUM, URINE 163 MG/24 HR 30-120 H 2024-10-19 2779-7 PHOSPHORUS, URINE 268 MG/24 HR 600-1200 L 2024-10-19 08442-4 AMMONIUM, URINE 12 MMOL/24 HR 15-60 L 2024-10-19 2079-2 CHLORIDE, URINE 202 MMOL/24 HR 70-250 2024-10-19 85118-8 SULFATE, URINE 22 MEQ/24 HR 20-80 2024-10-19 3096-5 UREA NITROGEN, URINE 8.3 G/24 HR 6.00-14.00 2024-10-19 22702-3 PROTEIN CATABOLI C RATE .7 G/KG/24 HR 0.8-1.4 L 2024-10-19 2162-6 CREATININE, URINE 1441 MG/24 HR NOT APPLIC . 2024-10-19 57722-9 CREATININE/KG LETTY DY WEIGHT 15.5 MG/24 HR/KG 11.9-24.4 2024-10-19 CALCIUM/KG BODY WEIGHT 1.8 MG/24 HR/KG <4.0 2024-10-19 75926-4 CALCIUM/CREATINI NE RATIO 116 MG/G CREAT 34-196 2024-10-19 20928-7 COMMENT NOTE 2024-10-19 39355-5 PDF PDFL8R
--- OUTSIDE RECORDS SUMMARY | 2024-12-14 12:22 | XMS_ITS | Referral Summary ---
Author Organization [employer] ([place], [place], [place], [place]) Address [address] [place] [address] Care Team Providers Care Environmental Safety Specialist Name Role Phone [facility], Provider Not In The System MD Primary Care Provider Unavailable Encounters Date Type Department Care Team Description 12/05/2024 1:39 PM EDT - 12/05/2024 11:59 PM EDT Hospital Encounter [facility] - [address] [place] [address] Indigo Ferrera PA Pain in left knee Discharge Disposition: Home or Self Care from Last 3 Months Allergies Active Allergy [...] Do you speak a language other than Kyrgyz at [facility]? No 06/08/2024 Do you [...] on file Medical Devices Implanted Type Area Superintendent House Device Identifier Shelf Expiration Date Model / Serial / Lot Bone Vivigen Formable Cell 5cc [id number] - [id number] Implanted:Qty : 1 on 05/03/2022 by Edson Barfield MD at [facility] IMPLANTS N/A: Back LIFENET:LIFENET TRANSPLANT SRV 04/14/2023 BL-1600-0 / [id number] / Scr Spne Arash Fix 7x50mm - [id number] Implanted:Qty : 4 on 05/03/2022 by Edson Barfield MD at [facility] IMPLANTS N/A: Back J &J:DEPUY:DEPUY SPINE 7 50 / 50 / Mis Jazzy Ply Scrw Set Ti - [id number] Implanted:Qty : 4 on 05/03/2022 by Edson Barfield MD at [facility] IMPLANTS N/A: Back J &J:DEPUY:DEPUY SPINE -0 00 / 00 / Teo Pre Load 40mm 1797-71-040 - [id number] Implanted:Qty : 2 on 05/03/2022 by Edson Barfield MD at [facility] IMPLANTS N/A: Back J &J:DEPUY:DEPUY SPINE -0 40 / 71-0 40 / Cage Eit Plif H 11mm 8d /9 [id number] - [id number] Implanted:Qty : 1 on 05/03/2022 by Edson Barfield MD at [facility] IMPLANTS N/A: Back J &J:DEPUY:DEPUY SPINE 03/18/2027 [id number] / / [id number] Sealant Durasl Spine 5ml - [id number] Implanted:Qty : 1 on 05/03/2022 by Edson Barfield MD at [facility] IMPLANTS N/A: Back [employer] 10/17/[id number] / / [id number] Pwdr Cellerate Rx 5gm Surgical Qpq-15-Unwqcd - [id number] Implanted:Qty : 1 on 05/03/2022 by Edson Barfield MD at [facility] IMPLANTS N/A: Back [employer] 12/17/2023 [facility]-05-SA CRXP / / [id number] Stent Uret Percflx + 4.8frx28 [id number] - [id number] Implanted:Qty : 1 on 06/09/2024 by Kareem Young MD at [facility] IMPLANTS Right: Ureter [employer]/GYNE COLOGY 10/18/2026 [id number] / / [id number] Explanted Type Area Superintendent House Device Identifier Shelf Expiration Date Model / Serial / Lot Cath Uret Pollack 5fr [id number] - [id number] Implanted:Kareem Blandon MD (Quantity not on file) Explanted:Qty: 1 on 06/09/2024 at [facility] Right: Ureter [employer] 11/17/2026 [id number] / / [id number] Procedures Procedure Name Priority Date/Time Associated Diagnosis Comments CT LOWER EXTREMITY WITHOUT IV CONTRAST LEFT Routine 12/05/2024 2:03 PM EDT Pain in left knee from Last 3 Months Results * CT lower extremity without IV [...] PA-C Indigo BATISTA CT ORDERABLES Final Result from Last 3 Months Insurance MEDICARE PART [place] [address] [facility] Advance Directives For more information, please contact: [phone] * Full Code (Latest Code Status on [...] 5:45 PM 05/04/2022 4:41 PM Care Teams Environmental Safety Specialist Relationship Specialty Start Date End Date [facility], Provider Not In The System, [place] [address] PCP - General 07/18/24 Lolita Belcher [address] [place] [address], [address] [place] [address] Advanced Registered Nurse Practitioner Primary Care 06/10/24
--- OUTSIDE RECORDS SUMMARY | 2024-12-14 12:22 | XMS_ITS | Data Portability ---
Author Organization [facility] KHUSHI FisherS ORANGE CLOSED Address [address] [place] [address] Care Team Providers Care Corrosion Control Technician Name Role Phone ELIANA MCMANUS Primary Care Provider Assessment Encounter Date Assessment [...] of seeking emergency care if condition worsens. [email or web address] Not available 07/12/2024 20:00:51 07/26/2024 07/26/2024 68-year-old [...] month for further evaluation and management refinement. [email or web address] Not available 07/26/2024 13:02:15 09/29/2024 09/29/2024 - Kidney stone: Calcium oxalate stones confirmed; elevated urinary calcium and oxalate. - Benign prostatic hyperplasia: Managed with tamsulosin; stable urinary frequency reported. [email or web address] Not available 09/29/2024 15:57:50 Plan of Treatment Reminders Order Date Submit Date Provider Last Modified By Organization Details Last Modified Time Details Appointments RECHECK 2024 03:15P Twan PALMA MD Not available Not available Not available Lab urinalysi s panel, auto 2024 025 [email or web address] 4 [facility], [address] , [facility] [address], [place], [address], 09/29/2024 15:55:51 kidney stone analysis 2024 025 [facility], [address] [place] [address], [id number], 07/29/2024 01:34:07 PTH (parathyr oid hormone), intact + calcium, serum or plasma 2024 025 [facility], [address] [place] [address], [id number], 07/26/2024 15:04:10 unlisted lab - urology custom panel 2024 025 [facility], [address] [place] [address], [id number], 07/26/2024 15:10:06 urinalysi s panel, auto 2024 025 4 [facility], [address], [place], [address], 07/26/2024 09:19:12 urinalysi s panel, auto 2024 025 [email or web address] 4 [facility], [address], [address], [place], [address], 07/12/2024 14:16:00 culture, urine 2024 025 [facility], [address] [place] [address], [address], 07/13/2024 14:38:02 CBC w/ auto diff 2024 025 [facility], [address] [place] [address], [id number], 07/12/2024 18:57:35 BMP, serum or plasma 2024 025 [facility], [address] [place] [address], [id number], 07/12/2024 19:16:21 surgical pathology study 2024 025 [facility], [address] [place] [address], [id number], 04/12/2024 17:44:22 Referral None recorded. Procedures None recorded. Surgeries None recorded. Imaging CT, abdomen + pelvis, w/o contrast 2024 025 [facility], [address] [place] [address], [id number], 07/12/2024 15:03:06 MRI, cervical spine, w/o contrast 2023 024 [facility], [address] [place] [address], [id number], 12/15/2023 17:11:59 Medication Orders potassium citrate ER 15 mEq (1,620 mg) tablet,ex tended release 2024 025 [facility], [address] [place] [address], [id number], 11/18/2024 15:02:49 tamsulosi n 0.4 mg capsule 2024 025 [facility], [address] [place] [address], [id number], 08/08/2024 11:31:37 ceftriaxo ne 1 gram solution for injection 2024 025 [email or web address] 4 [facility], [address] [place] [address], [id number], 07/12/2024 16:27:48 diclofena c sodium 75 mg tablet,de layed release 10/07/ 2024 10/07/2 [facility], [address] [address] [place], [id number], 11/23/2023 09:45:15 Patient TargetsNo targets recorded. Patient Instructions Encounter Date Encounter Id Patient Instructions Last Modified By Organization Details Last Modified Time 04/11/2024 [id number] - Benign moles a nd keratoses seen [...] lesions [email or web address] Not available 04/11/2024 14:52:24 07/12/2024 [id number] - Take prescribe d antibiotics as directed. [...] the need for quick escalation if necessary. [email or web address] Not available 07/12/2024 19:57:57 07/26/2024 [id number] - Continue takin g Tamsulosin as prescribed. [...] is complete. [email or web address] Not available 07/26/2024 09:12:26 09/29/2024 [id number] learning about healthy weight [email or web address] Not available 09/29/2024 15:55:51 - Drink enough water to produce 2.5 liters of urine daily. - Cut down on foods high in sodium and oxalate. - Continue taking tamsulosin as prescribed. - Consider taking potassium citrate if recommended by your doctor. [email or web address] Not available 09/29/2024 15:57:53 Reason for Referral None Reported. Results Created Date Observation Date Name Description Value Unit Range Abnormal Flag Note LastModifiedBy Organization Detail LastModifiedTime 04/11/1904/11/2024 SURGI LORETO surgical SEE BELOW normal Surgi [...] forma tiera label ed with the delmis valentino's name and desig nated righ t proxi [...] forma tiera label ed with the delmis valentino's name and desig nated righ t dista [...] 17:44 Page 1 of 1 Not Available [facility] [address] [place], [address], 04/12/2024 17:44:22 07/13/1907/12/2024 COMPL ETE BLOOD COUNT white blood cells 7.6 10*3/ uL 3.8-10 .8 normal Not Available [facility] [address] [place], [address], 07/12/2024 18:57:35 07/13/19 25 07/12/2024 COMPL ETE BLOOD COUNT red blood cells 4.56 10*6/ uL 4.20-5 .80 normal Not Available [facility] [address] [place] [address], [address], 07/12/2024 18:57:35 07/13/19 25 07/12/2024 COMPL ETE BLOOD COUNT hemoglobin 14.0 g/dL 14.0-1 8.0 normal Not Available [facility] [address] [place] [address], [address], 07/12/2024 18:57:35 07/13/19 25 07/12/2024 COMPL ETE BLOOD COUNT hematocrit 41.3 % 40.0-5 2.0 normal Not Available [facility] [address] [place] [address], [address], 07/12/2024 18:57:35 07/13/19 25 07/12/2024 COMPL ETE BLOOD COUNT MCV 91 fL 80-100 normal Not Available [facility] [address] [place] [address], [address], 07/12/2024 18:57:35 07/13/19 25 07/12/2024 COMPL ETE BLOOD COUNT MCH 31 pg 26-35 normal Not Available [facility] [address] [place] [address], [address], 07/12/2024 18:57:35 07/13/19 25 07/12/2024 COMPL ETE BLOOD COUNT MCHC 34 g/dL 32-36 normal Not Available [facility] [address] [place] [address], [address], 07/12/2024 18:57:35 07/13/19 25 07/12/2024 COMPL ETE BLOOD COUNT RDW 14.6 % 11.0-1 5.0 normal Not Available [facility] [address] [place] [address], [address], 07/12/2024 18:57:35 07/13/19 25 07/12/2024 COMPL ETE BLOOD COUNT MPV 7.7 fL 6.2-10 .5 normal Not Available [facility] [address] [place] [address], [address], 07/12/2024 18:57:35 07/13/19 25 07/12/2024 COMPL ETE BLOOD COUNT platelet count 262 10*3/ uL 150-40 0 normal Not Available [facility] [address] [place] [address], [address], 07/12/2024 18:57:35 07/13/1907/12/2024 COMPL ETE BLOOD COUNT neutrophil,a bsolute 4.0 10*3/ uL 1.6-8. 4 normal Not Available [facility] [address] [place] [address], [address], 07/12/2024 18:57:35 07/13/19 25 07/12/2024 COMPL ETE BLOOD COUNT lymphocyte,a bsolute 2.3 10*3/ uL 0.4-5. 1 normal Not Available [facility] [address] [place] [address], [address], 07/12/2024 18:57:35 07/13/19 25 07/12/2024 COMPL ETE BLOOD COUNT monocyte,abs olute 0.8 10*3/ uL 0.0-1. 2 normal Not Available [facility] [address] [place] [address], [address], 07/12/2024 18:57:35 07/13/19 25 07/12/2024 COMPL ETE BLOOD COUNT eosinophil,a bsolute 0.4 10*3/ uL 0.0-0. 8 normal Not Available [facility] [address] [place] [address], [address], 07/12/2024 18:57:35 07/13/19 25 07/12/2024 COMPL ETE BLOOD COUNT basophil,abs olute 0.1 10*3/ uL 0.0-0. 3 normal Not Available [facility] [address] [place] [address], [address], 07/12/2024 18:57:35 07/13/19 25 07/12/2024 COMPL ETE BLOOD COUNT % neutrophils 52.9 % 42.0-7 8.0 normal Not Available [facility] [address] [place] [address], [address], 07/12/2024 18:57:35 07/13/19 25 07/12/2024 COMPL ETE BLOOD COUNT % lymphocytes 31.0 % 11.0-4 7.0 normal Not Available [facility] [address] [place] [address], [address], 07/12/2024 18:57:35 07/13/19 25 07/12/2024 COMPL ETE BLOOD COUNT % monocytes 10.0 % 0.0-11 .0 normal Not Available [facility] [address] [place] [address], [address], 07/12/2024 18:57:35 07/13/19 25 07/12/2024 COMPL ETE BLOOD COUNT % eosinophils 4.8 % 0.0-7. 0 normal Not Available [facility] [address] [place] [address], [address], 07/12/2024 18:57:35 07/13/19 25 07/12/2024 COMPL ETE BLOOD COUNT % basophils 1.3 % 0.0-3. 0 normal Not Available [facility] [address] [place] [address], [address], 07/12/2024 18:57:35 07/13/19 25 07/12/2024 COMPL ETE BLOOD COUNT nucleated red cells 0.0 % 0.0-0. 9 normal Not Available [facility] [address] [place] [address], [address], 07/12/2024 18:57:35 07/13/19 25 07/12/2024 COMPL ETE BLOOD COUNT nucleated RBCs, absolute 0.00 10*3/ uL not estab. normal Not Available [facility] [address] [place] [address], [address], 07/12/2024 18:57:35 07/13/19 25 07/12/2024 BASIC METAB OLIC PANEL glucose 150 mg/dL 74-100 high Not Available [facility] [address] [place] [address], [address], 07/12/2024 19:16:21 07/13/19 25 07/12/2024 BASIC METAB OLIC PANEL blood urea nitrogen 25 mg/dL 6-20 high Not Available [facility] [address] [place] [address], [address], 07/12/2024 19:16:21 07/13/19 25 07/12/2024 BASIC METAB OLIC PANEL creatinine 0.83 mg/dL 0.70-1 .20 normal Not Available [facility] [address] [place] [address], [address], 07/12/2024 19:16:21 07/13/19 25 07/12/2024 BASIC METAB OLIC PANEL BUN/creatini ne ratio 30 (calc ) 10-20 high Not Available [facility] [address] [place] [address], [address], 07/12/2024 19:16:21 07/13/19 25 07/12/2024 BASIC METAB OLIC PANEL sodium 139 mmol/ L 136-14 5 normal Not Available [facility] [address] [place] [address], [address], 07/12/2024 19:16:21 07/13/19 25 07/12/2024 BASIC METAB OLIC PANEL potassium 4.3 mmol/ L 3.4-5. 0 normal Not Available [facility] [address] [place] [address], [address], 07/12/2024 19:16:21 07/13/19 25 07/12/2024 BASIC METAB OLIC PANEL chloride 102 mmol/ L 98-107 normal Not Available [facility] [address] [place] [address], [address], 07/12/2024 19:16:21 07/13/19 25 07/12/2024 BASIC METAB OLIC PANEL carbon dioxide 24 mmol/ L 22-31 normal Not Available [facility] [address] [place], [address], 07/12/2024 19:16:21 07/13/19 25 07/12/2024 BASIC METAB OLIC PANEL anion gap 13 (calc ) 7-25 normal Not Available [facility] [address] [place] [address], [address], 07/12/2024 19:16:21 07/13/19 25 07/12/2024 BASIC METAB OLIC PANEL calcium 9.4 mg/dL 8.6-10 .2 normal Not Available [facility] [address] [place] [address], [address], 07/12/2024 19:16:21 07/13/19 25 07/12/2024 BASIC METAB OLIC PANEL GFR 94 >= 60 normal NOT E New calcu latio n for GFR (CKD- EPI 2020) is formu lated witho ut race adjus tment facto rs at the [facility] menda tion of the Charlene Kay y [employer] atvikas and Arabella traore [employer]ie ty of Nephr ology . This calcu latio n has not been valid ated in pregn ant women . For pedia tric patie nts refer to https ://enrico ritchie.luis enrique isaac/kim murillo s/KDO QI/gf r_cal culat orPed Not Available [facility] [address] [place] [address], [address], 07/12/2024 19:16:21 07/13/19 25 07/12/2024 URINE CULTU RE enterobacter cloacae Organi sm: Entero bacter cloaca e Not Available [facility] [address] [place] [address], [address], 07/15/2024 12:44:59 07/13/19 25 07/15/2024 URINE CULTU RE urine culture abnormal ISOLA TE #1 COLON Y COUNT : 2,000 CFU/M L Proba ble Gram Negat esthela Bacil masood. ID and sensi tivit y in progr ess. See [place] te Resul t(s) Below Enter obact er cloac ae Not Available [facility] [address] [place] [address], [address], 07/15/2024 12:44:59 07/13/1907/15/2024 URINE CULTU RE ceftazidime <=1 ug/mL susceptib le Not Available [facility] [address] [place] [address], [address], 07/15/2024 12:44:59 07/13/19 25 07/15/2024 URINE CULTU RE ceftriaxone <=1 ug/mL susceptib le Not Available [facility] [address] [place] [address], [address], 07/15/2024 12:44:59 07/13/19 25 07/15/2024 URINE CULTU RE ciprofloxaci n <=0.25 ug/mL susceptib le Not Available [facility] [address] [place] [address], [address], 07/15/2024 12:44:59 07/13/19 25 07/15/2024 URINE CULTU RE gentamicin <=4 ug/mL susceptib le Not Available [facility] [address] [place] [address], [address], 07/15/2024 12:44:59 07/13/19 25 07/15/2024 URINE CULTU RE imipenem <=1 ug/mL susceptib le Not Available [facility] [address] [place] [address], [address], 07/15/2024 12:44:59 07/13/19 25 07/15/2024 URINE CULTU RE levofloxacin <=0.5 ug/mL susceptib le Not Available [facility] [address] [place] [address], [address], 07/15/2024 12:44:59 07/13/19 25 07/15/2024 URINE CULTU RE nitrofuranto in 64 ug/mL intermedi ate Not Available [facility] [address] [place] [address], [address], 07/15/2024 12:44:59 07/13/19 25 07/15/2024 URINE CULTU RE piperacillin /kemi <=16 ug/mL susceptib le Not Available [facility] [address] [place] [address], [address], 07/15/2024 12:44:59 07/13/19 25 07/15/2024 URINE CULTU RE tetracycline <=4 ug/mL susceptib le Not Available [facility] [address] [place] [address], [address], 07/15/2024 12:44:59 07/13/19 25 07/15/2024 URINE CULTU RE tobramycin <=2 ug/mL susceptib le Not Available [facility] [address] [place] [address], [address], 07/15/2024 12:44:59 07/13/19 25 07/15/2024 URINE CULTU RE trimeth/sulf a <=2/38 ug/mL susceptib le Not Available [facility] [address] [place] [address], [address], 07/15/2024 12:44:59 07/13/19 25 07/12/2024 urina lysis panel , auto Unknown Analyte Clean Catch Not Available [facility] [address] [facility] [address], [place], [address], 07/12/2024 13:57:15 07/13/19 25 07/12/2024 urina lysis panel , auto Unknown Analyte [place] Not Available [facility] [address], [place], [address], 07/12/2024 13:57:15 07/13/19 25 07/12/2024 urina lysis panel , auto Unknown Analyte Clear Not Available [facility] [address], [place], [address], 07/12/2024 13:57:15 07/13/19 25 07/12/2024 urina lysis panel , auto Unknown Analyte 1.025 Not Available [facility] [address] [facility] [address], [place], [address], 07/12/2024 13:57:15 07/13/19 25 07/12/2024 urina lysis panel , auto Unknown Analyte 1.003 - 1.030 Not Available [facility] [address], [place], [address], 07/12/2024 13:57:15 07/13/19 25 07/12/2024 urina lysis panel , auto Unknown Analyte 5.0 Not Available [facility] [address], [place], [address], 07/12/2024 13:57:15 07/13/19 25 07/12/2024 urina lysis panel , auto Unknown Analyte 5.0 - 8.0 Not Available [facility] [address], [place], [address], 07/12/2024 13:57:15 07/13/19 25 07/12/2024 urina lysis panel , auto Unknown Analyte 25 Elvia/uL Not Available [facility] [address], [place], [address], 07/12/2024 13:57:15 07/13/19 25 07/12/2024 urina lysis panel , auto Unknown Analyte Negati ve Not Available [facility] [address], [place], [address], 07/12/2024 13:57:15 07/13/19 25 07/12/2024 urina lysis panel , auto Unknown Analyte POSITI VE (Abnor mal) Not Available [facility] [address], [place], [address], 07/12/2024 13:57:15 07/13/19 25 07/12/2024 urina lysis panel , auto Unknown Analyte Negati ve Not Available [facility] [address], [place], [address], 07/12/2024 13:57:15 07/13/19 25 07/12/2024 urina lysis panel , auto Unknown Analyte 30 mg/dL Not Available [facility] [address], [place], [address], 07/12/2024 13:57:15 07/13/19 25 07/12/2024 urina lysis panel , auto Unknown Analyte Negati ve Not Available [facility] [address], [place], [address], 07/12/2024 13:57:15 07/13/19 25 07/12/2024 urina lysis panel , auto Unknown Analyte Normal Not Available [facility] [address], [place], [address], 07/12/2024 13:57:15 07/13/19 25 07/12/2024 urina lysis panel , auto Unknown Analyte Normal Not Available [facility] [address], [place], [address], 07/12/2024 13:57:15 07/13/19 25 07/12/2024 urina lysis panel , auto Unknown Analyte Negati ve Not Available [facility] [address], [place], [address], 07/12/2024 13:57:15 07/13/19 25 07/12/2024 urina lysis panel , auto Unknown Analyte Negati ve Not Available [facility] [address], [place], [address], 07/12/2024 13:57:15 07/13/19 25 07/12/2024 urina lysis panel , auto Unknown Analyte 4 mg/dL Not Available [facility] [address], [place], [address], 07/12/2024 13:57:15 07/13/19 25 07/12/2024 urina lysis panel , auto Unknown Analyte Normal Not Available [facility] [address], [place], [address], 07/12/2024 13:57:15 07/13/19 25 07/12/2024 urina lysis panel , auto Unknown Analyte 1 mg/dL Not Available [facility] [address] [place] [address] [address], [place], [address], 07/12/2024 13:57:15 07/13/19 25 07/12/2024 urina lysis panel , auto Unknown Analyte Negati ve Not Available [facility] [address] [place] [address] [address], [place], [address], 07/12/2024 13:57:15 07/13/19 25 07/12/2024 urina lysis panel , auto Unknown Analyte 50 Sera/uL Not Available [facility] [address], [place], [address], 07/12/2024 13:57:15 07/13/19 25 07/12/2024 urina lysis panel , auto Unknown Analyte Negati ve Not Available [facility] [address], [place], [address], 07/12/2024 13:57:15 07/27/19 25 07/26/2024 PTH, INTAC [...] ===== ===== ===== ===== ==== Not Available [facility] [address] [place] [address], [address], 07/26/2024 15:20:55 07/27/19 25 07/26/2024 PTH, INTAC T WITH CA calcium 9.5 mg/dL 8.6-10 .2 normal Not Available [facility] [address] [place] [address], [address], 07/26/2024 15:20:55 07/27/19 25 07/26/2024 UROLO GY CUSTO M PANEL glucose 104 mg/dL 74-100 high Not Available [facility] [address] [place] [address], [address], 07/26/2024 15:10:06 07/27/19 25 07/26/2024 UROLO GY CUSTO M PANEL blood urea nitrogen 20 mg/dL 6-20 normal Not Available [facility] [address] [place] [address], [address], 07/26/2024 15:10:06 07/27/19 25 07/26/2024 UROLO GY CUSTO M PANEL creatinine 0.89 mg/dL 0.70-1 .20 normal Not Available [facility] [address] [place] [address], [address], 07/26/2024 15:10:06 07/27/19 25 07/26/2024 UROLO GY CUSTO M PANEL BUN/creatini ne ratio 22 (calc ) 10-20 high Not Available [facility] [address] [place] [address], [address], 07/26/2024 15:10:06 07/27/19 25 07/26/2024 UROLO GY CUSTO M PANEL sodium 140 mmol/ L 136-14 5 normal Not Available [facility] [address] [place] [address], [address], 07/26/2024 15:10:06 07/27/19 25 07/26/2024 UROLO GY CUSTO M PANEL potassium 4.7 mmol/ L 3.4-5. 0 normal Not Available [facility] [address] [place] [address], [address], 07/26/2024 15:10:06 07/27/19 25 07/26/2024 UROLO GY CUSTO M PANEL chloride 104 mmol/ L 98-107 normal Not Available [facility] [address] [place] [address], [address], 07/26/2024 15:10:06 07/27/19 25 07/26/2024 UROLO GY CUSTO M PANEL carbon dioxide 25 mmol/ L 22-31 normal Not Available [facility] [address] [place] [address], [address], 07/26/2024 15:10:06 07/27/19 25 07/26/2024 UROLO GY CUSTO M PANEL anion gap 11 (calc ) 7-25 normal Not Available [facility] [address] [place] [address], [address], 07/26/2024 15:10:06 07/27/19 25 07/26/2024 UROLO GY CUSTO M PANEL calcium 9.6 mg/dL 8.6-10 .2 normal Not Available [facility] [address] [place] [address], [address], 07/26/2024 15:10:06 07/27/19 25 07/26/2024 UROLO GY CUSTO M PANEL phosphorus 4.2 mg/dL 2.5-4. 5 normal Not Available [facility] [address] [place] [address], [address], 07/26/2024 15:10:06 07/27/19 25 07/26/2024 UROLO GY CUSTO M PANEL uric acid 4.0 mg/dL 3.4-7. 0 normal Refer ence range s are based on [facility] norms and do not neces paty luis late with treat ment targe ts. In patie nts with an estab lishe d diagn osis of gout under going Urate Lower ing Thera py (ULT) , the 2011 [facility] ge of Rheum atolo gy Guid chucky s for Manag ement of Gout recom mend a targe t uric acid level of < 6 mg/dL in all patie nts, or lower in certa in circu mstan fela. Arthr itis Care and Resea [facility] Vol 64 No 10, 2011 Arabella Davis ge of Rheum atolo gy ----- ----- ----- ----- ----- ----- ----- ----- ----- ----- ----- ---- Not Available [facility] [address] [place], [address], 07/26/2024 15:10:06 07/27/19 25 07/26/2024 UROLO GY CUSTO M PANEL eGFR 92 >= 60 normal NOT E New calcu latio n for GFR (CKD- EPI 2020) is formu trudi withluis enrique ring race adjus tment facto rs at the [facility] menda tion of the [facility] at[facility] and Arabella Ludwig ty of Nephr ology . This calcu latio n has not been valid ated in pregn ant women . For pedia tric patie nts refer to [email or web address] :[email or web address] rg/pr ofess ional s/KDO QI/gf r_cal culat orPed Not Available [facility] [address] [place], [address], 07/26/2024 15:10:06 07/27/19 25 07/29/2024 STONE GUERRERO SIS composition SEE NOTE normal Calci um Oxala te Dihyd rate (Wedd ellit e) 95% Calci um Oxala te Monoh ydrat e (Williew ellit e) 5% Not Available [facility] [address] [place], [address], 07/29/2024 01:34:05 07/27/1907/29/2024 STONE GUERRERO SIS weight 0.160 g normal Forma tiera, surgi loreto gel, tape adhes esthela or trans port media inter fere with the guerrero tical proce dure. Follo w up testi ng with the UroRi sk(R) Panel is caity jimenez for affec yoandy sampl es, if clini laya indic ated. This test was devel oped and its guerrero tical perfo rmanc e michael cteri stics have been deter mined by [employer]. It has not been clear ed or appro juan by the FDA. This assay has been valid ated pursu ant to the CLIA regul ation s and is used for clini loreto purpo ses. Not Available [facility] [address] [facility], [place], [address], 07/29/2024 01:34:05 07/27/19 25 07/26/2024 urina lysis panel , auto Unknown Analyte Clean Catch Not Available [facility] [address], [place], [address], 07/26/2024 09:12:37 07/27/19 25 07/26/2024 urina lysis panel , auto Unknown Analyte Straw Not Available [facility] [address], [place], [address], 07/26/2024 09:12:37 07/27/1907/26/2024 urina lysis panel , auto Unknown Analyte Clear Not Available [facility] [address], [place], [address], 07/26/2024 09:12:37 07/27/1907/26/2024 urina lysis panel , auto Unknown Analyte 1.025 Not Available [facility] [address], [address], 07/26/2024 09:12:37 07/27/19 25 07/26/2024 urina lysis panel , auto Unknown Analyte 1.003 - 1.030 Not Available [facility] [address], [place], [address], 07/26/2024 09:12:37 07/27/19 25 07/26/2024 urina lysis panel , auto Unknown Analyte 5.0 Not Available [facility] [address], [place], [address], 07/26/2024 09:12:37 07/27/1907/26/2024 urina lysis panel , auto Unknown Analyte 5.0 - 8.0 Not Available [facility] [address], [place], [address], 07/26/2024 09:12:37 07/27/19 25 07/26/2024 urina lysis panel , auto Unknown Analyte Negati ve Not Available [facility] [address], [place], [address], 07/26/2024 09:12:37 07/27/1907/26/2024 urina lysis panel , auto Unknown Analyte Negati ve Not Available [facility] [address], [place], [address], 07/26/2024 09:12:37 07/27/1907/26/2024 urina lysis panel , auto Unknown Analyte Negati ve Not Available [facility] [address], [place], [address], 07/26/2024 09:12:37 07/27/19 25 07/26/2024 urina lysis panel , auto Unknown Analyte Negati ve Not Available [facility] [address], [place], [address], 07/26/2024 09:12:37 07/27/1907/26/2024 urina lysis panel , auto Unknown Analyte Negati ve Not Available [facility] [address], [place], [address], 07/26/2024 09:12:37 07/27/1907/26/2024 urina lysis panel , auto Unknown Analyte Negati ve Not Available [facility] [address], [place], [address], 07/26/2024 09:12:37 07/27/1907/26/2024 urina lysis panel , auto Unknown Analyte Normal Not Available [facility] [address], [place], [address], 07/26/2024 09:12:37 07/27/1907/26/2024 urina lysis panel , auto Unknown Analyte Normal Not Available [facility] [address], [place], [address], 07/26/2024 09:12:37 07/27/1907/26/2024 urina lysis panel , auto Unknown Analyte Negati ve Not Available [facility] [address], [place], [address], 07/26/2024 09:12:37 07/27/1907/26/2024 urina lysis panel , auto Unknown Analyte Negati ve Not Available [facility] [address], [place], [address], 07/26/2024 09:12:37 07/27/1907/26/2024 urina lysis panel , auto Unknown Analyte 1 mg/dL Not Available [facility] [address], [place], [address], 07/26/2024 09:12:37 07/27/1907/26/2024 urina lysis panel , auto Unknown Analyte Normal Not Available [facility] [address], [place], [address], 07/26/2024 09:12:37 07/27/1907/26/2024 urina lysis panel , auto Unknown Analyte Negati ve Not Available [facility] [address], [place], [address], 07/26/2024 09:12:37 07/27/1907/26/2024 urina lysis panel , auto Unknown Analyte Negati ve Not Available [facility] [address], [place], [address], 07/26/2024 09:12:37 07/27/1907/26/2024 urina lysis panel , auto Unknown Analyte Negati ve Not Available [facility] [address], [place], [address], 07/26/2024 09:12:37 07/27/1907/26/2024 urina lysis panel , auto Unknown Analyte Negati ve Not Available [facility] [address], [place], [address], 07/26/2024 09:12:37 08/05/19 25 08/26/2024 LITHO LINK 24HR URINE PANEL cystine, urine, qualitative Neg negati ve Not Available [facility] ([facility]) [address] [place], [address], 08/29/2024 11:21:25 08/05/19 25 08/26/2024 LITHO LINK 24HR URINE PANEL urine volume (preserved) 1810 mL/24 _HR 500-40 00 Not Available [facility] ([facility]) [address] [place], [address], 08/29/2024 11:21:25 08/05/19 25 08/26/2024 LITHO LINK 24HR URINE PANEL calcium oxalate saturation 12.12 6.00-1 0.00 above high normal Not Available [facility] ([facility]) [address] [place], [address], 08/29/2024 11:21:25 08/05/19 25 08/26/2024 LITHO LINK 24HR URINE PANEL calcium, urine 403 mg/24 _HR <250 above high normal Not Available [facility] ([facility]) [address] [place], [address], 08/29/2024 11:21:25 08/05/19 25 08/26/2024 LITHO LINK 24HR URINE PANEL oxalate, urine 60 mg/24 _HR 20-40 above high normal Not Available [facility] ([facility]) [address] [place], [address], 08/29/2024 11:21:25 08/05/19 25 08/26/2024 LITHO LINK 24HR URINE PANEL citrate, urine 1291 mg/24 _HR >450 Not Available [facility] ([facility]) [address] [place], [address], 08/29/2024 11:21:25 08/05/19 08/26/2024 LITHO LINK 24HR URINE PANEL calcium phosphate saturation 1.02 0.50-2 .00 Not Available [facility] ([facility]) [address] [place], [address], 08/29/2024 11:21:25 08/05/1908/26/2024 LITHO LINK 24HR URINE PANEL pH, 24 HR, urine 5.463 5.800- 6.200 below low normal Not Available [facility] ([facility]) [address] [place], [address], 08/29/2024 11:21:25 08/05/1908/26/2024 LITHO LINK 24HR URINE PANEL uric acid saturation 1.64 <1.00 above high normal Not Available [facility] ([facility]) [address] [place], [address], 08/29/2024 11:21:25 08/05/1908/26/2024 LITHO LINK 24HR URINE PANEL uric acid, urine 630 mg/24 _HR <800 Not Available [facility] ([facility]) [address] [place], [address], 08/29/2024 11:21:25 08/05/19 25 08/26/2024 LITHO LINK 24HR URINE PANEL sodium, urine 281 mmol/ 24_HR 50-150 above high normal Not Available [facility] ([facility]) [address] [place], [address], 08/29/2024 11:21:25 08/05/19 25 08/26/2024 LITHO LINK 24HR URINE PANEL potassium, urine 113 mmol/ 24_HR 20-100 above high normal Not Available [facility] ([facility]) [address] [place], [address], 08/29/2024 11:21:25 08/05/19 25 08/26/2024 LITHO LINK 24HR URINE PANEL magnesium, urine 178 mg/24 _HR 30-120 above high normal Not Available [facility] ([facility]) [address] [place], [address], 08/29/2024 11:21:25 08/05/19 25 08/26/2024 LITHO LINK 24HR URINE PANEL phosphorus, urine 1932 mg/24 _HR 600-12 00 above high normal Not Available [facility] ([facility]) [address] [place], [address], 08/29/2024 11:21:25 08/05/19 25 08/26/2024 LITHO LINK 24HR URINE PANEL ammonium, urine 52 mmol/ 24_HR 15-60 Not Available [facility] ([facility]) [address] [place], [address], 08/29/2024 11:21:25 08/05/19 25 08/26/2024 LITHO LINK 24HR URINE PANEL chloride, urine 321 mmol/ 24_HR 70-250 above high normal Not Available [facility] ([facility]) [address] [place], [address], 08/29/2024 11:21:25 08/05/1908/26/2024 LITHO LINK 24HR URINE PANEL sulfate, urine 61 mEq/2 4_HR 20-80 Not Available [facility] ([facility]) [address] [place], [address], 08/29/2024 11:21:25 08/05/1908/26/2024 LITHO LINK 24HR URINE PANEL urea nitrogen, urine 15.60 g/24_ HR 6.00-1 4.00 above high normal Not Available [facility] ([facility]) [address] [place], [address], 08/29/2024 11:21:25 08/05/19 25 08/26/2024 LITHO LINK 24HR URINE PANEL protein catabolic rate 1.2 g/kg/ 24_HR 0.8-1. 4 Not Available [facility] ([facility]) [address] [facility], [place], [address], 08/29/2024 11:21:25 08/05/1908/26/2024 LITHO LINK 24HR URINE PANEL creatinine, urine 2382 mg/24 _HR not applic . Not Available [facility] ([facility]) [address] [facility], [place], [address], 08/29/2024 11:21:25 08/05/1908/26/2024 LITHO LINK 24HR URINE PANEL creatinine/k g body weight 23.9 mg/24 _HR/k g 11.9-2 4.4 Not Available [facility] ([facility]) [address] [facility], [place], [address], 08/29/2024 11:21:25 08/05/19 25 08/26/2024 LITHO LINK 24HR URINE PANEL calcium/kg body weight 4.0 mg/24 _HR/k g <4.0 Not Available [facility] ([facility]) [address] [facility], [place], [address], 08/29/2024 11:21:25 08/05/1908/26/2024 LITHO LINK 24HR URINE PANEL calcium/crea tinine ratio 169 mg/g_ creat 34-196 Not Available [facility] ([facility]) [address] [facility], [place], [address], 08/29/2024 11:21:25 08/05/1908/26/2024 LITHO LINK 24HR URINE PANEL comment Note This repor t has been resen t due to a misco nfigu ratio n that led to the enhan stefani repor t not being gener ated. This issue has been resol juan for futur e acces sions . No resul ts were affec yoandy or adam ed. Not Available [facility] ([facility]) [address] [facility], [place], [address], 08/29/2024 11:21:25 09/30/19 25 09/29/2024 urina lysis panel , auto Unknown Analyte Clean Catch Not Available [facility] [address], [place], [address], 09/29/2024 15:50:08 09/30/19 25 09/29/2024 urina lysis panel , auto Unknown Analyte Yellow Not Available [facility] [address], [place], [address], 09/29/2024 15:50:08 09/30/19 25 09/29/2024 urina lysis panel , auto Unknown Analyte Clear Not Available [facility] [place] [address], [place], [address], 09/29/2024 15:50:08 09/30/19 25 09/29/2024 urina lysis panel , auto Unknown Analyte 1.025 Not Available [facility] [address], [place], [address], 09/29/2024 15:50:08 09/30/19 25 09/29/2024 urina lysis panel , auto Unknown Analyte 1.003 - 1.030 Not Available [facility] [address], [place], [address], 09/29/2024 15:50:08 09/30/19 25 09/29/2024 urina lysis panel , auto Unknown Analyte 5.0 Not Available [facility] [address], [place], [address], 09/29/2024 15:50:08 09/30/19 25 09/29/2024 urina lysis panel , auto Unknown Analyte 5.0 - 8.0 Not Available [facility] [place] [address], [place], [address], 09/29/2024 15:50:08 09/30/19 25 09/29/2024 urina lysis panel , auto Unknown Analyte Negati ve Not Available [facility] [place] [facility] [address], [place], [address], 09/29/2024 15:50:08 09/30/19 25 09/29/2024 urina lysis panel , auto Unknown Analyte Negati ve Not Available [facility] [address], [place], [address], 09/29/2024 15:50:08 09/30/19 25 09/29/2024 urina lysis panel , auto Unknown Analyte Negati ve Not Available [facility] [address], [place], [address], 09/29/2024 15:50:08 09/30/19 25 09/29/2024 urina lysis panel , auto Unknown Analyte Negati ve Not Available [facility] [address], [place], [address], 09/29/2024 15:50:08 09/30/19 25 09/29/2024 urina lysis panel , auto Unknown Analyte Negati ve Not Available [facility] [address], [place], [address], 09/29/2024 15:50:08 09/30/19 25 09/29/2024 urina lysis panel , auto Unknown Analyte Negati ve Not Available [facility] [place] [address], [place], [address], 09/29/2024 15:50:08 09/30/19 25 09/29/2024 urina lysis panel , auto Unknown Analyte Normal Not Available [facility] [address], [place], [address], 09/29/2024 15:50:08 09/30/19 25 09/29/2024 urina lysis panel , auto Unknown Analyte Normal Not Available [facility] [address], [place], [address], 09/29/2024 15:50:08 09/30/19 25 09/29/2024 urina lysis panel , auto Unknown Analyte Negati ve Not Available [facility] [address], [place], [address], 09/29/2024 15:50:08 09/30/19 25 09/29/2024 urina lysis panel , auto Unknown Analyte Negati ve Not Available [facility] [place] [address], [place], [address], 09/29/2024 15:50:08 09/30/19 25 09/29/2024 urina lysis panel , auto Unknown Analyte Normal Not Available [facility] [place] [address], [place], [address], 09/29/2024 15:50:08 09/30/19 25 09/29/2024 urina lysis panel , auto Unknown Analyte Normal Not Available [facility] [place] [address], [place], [address], 09/29/2024 15:50:08 09/30/19 25 09/29/2024 urina lysis panel , auto Unknown Analyte Negati ve Not Available [facility] [place] [address], [place], [address], 09/29/2024 15:50:08 09/30/19 25 09/29/2024 urina lysis panel , auto Unknown Analyte Negati ve Not Available [facility] [place] [address], [place], [address], 09/29/2024 15:50:08 09/30/19 25 09/29/2024 urina lysis panel , auto Unknown Analyte 250 Sera/uL Not Available [facility] [place] [facility] [address], [place], [address], 09/29/2024 15:50:08 09/30/19 25 09/29/2024 urina lysis panel , auto Unknown Analyte Negati ve Not Available [facility] [place] [facility] [address], [place], [address], 09/29/2024 15:50:08 10/20/19 25 10/26/2024 LITHO LINK 24HR URINE PANEL cystine, urine, qualitative COMMEN T Test not perfo rmed. Previ ous test resul ts on file. Not Available [facility] ([facility]) [address] [place], [address], 10/26/2024 06:55:10 10/20/19 25 10/26/2024 LITHO LINK 24HR URINE PANEL urine volume (preserved) 1780 mL/24 _HR 500-40 00 Not Available [facility] ([facility]) [address] [place], [address], 10/26/2024 06:55:10 10/20/1910/26/2024 LITHO LINK 24HR URINE PANEL calcium oxalate saturation 13.98 6.00-1 0.00 above high normal Not Available [facility] ([facility]) [address] [place], [address], 10/26/2024 06:55:10 10/20/19 25 10/26/2024 LITHO LINK 24HR URINE PANEL calcium, urine 168 mg/24 _HR <250 Not Available [facility] ([facility]) [address] [place], [address], 10/26/2024 06:55:10 10/20/1910/26/2024 LITHO LINK 24HR URINE PANEL oxalate, urine 95 mg/24 _HR 20-40 above high normal The urine Ox resul t was verif ied by mady lozada guerrero sis. Not Available [facility] ([facility]) [address] [place], [address], 10/26/2024 06:55:10 10/20/1910/26/2024 LITHO LINK 24HR URINE PANEL citrate, urine 1102 mg/24 _HR >450 Not Available [facility] ([facility]) [address] [place], [address], 10/26/2024 06:55:10 10/20/1910/26/2024 LITHO LINK 24HR URINE PANEL calcium phosphate saturation 0.69 0.50-2 .00 Not Available [facility] ([facility]) [address] [place], [address], 10/26/2024 06:55:10 10/20/1910/26/2024 LITHO LINK 24HR URINE PANEL pH, 24 HR, urine 6.779 5.800- 6.200 above high normal Not Available [facility] ([facility]) [address] [place], [address], 10/26/2024 06:55:10 10/20/1910/26/2024 LITHO LINK 24HR URINE PANEL uric acid saturation 0.09 <1.00 Not Available [facility] ([facility]) [address] [place], [address], 10/26/2024 06:55:10 10/20/1910/26/2024 LITHO LINK 24HR URINE PANEL uric acid, urine 425 mg/24 _HR <800 Not Available [facility] ([facility]) [address] [place], [address], 10/26/2024 06:55:10 10/20/1910/26/2024 LITHO LINK 24HR URINE PANEL sodium, urine 188 mmol/ 24_HR 50-150 above high normal Not Available [facility] ([facility]) [address] [place], [address], 10/26/2024 06:55:10 10/20/1910/26/2024 LITHO LINK 24HR URINE PANEL potassium, urine 76 mmol/ 24_HR 20-100 Not Available [facility] ([facility]) [address] [place], [address], 10/26/2024 06:55:10 10/20/1910/26/2024 LITHO LINK 24HR URINE PANEL magnesium, urine 163 mg/24 _HR 30-120 above high normal Not Available [facility] ([facility]) [address] [place], [address], 10/26/2024 06:55:10 10/20/1910/26/2024 LITHO LINK 24HR URINE PANEL phosphorus, urine 268 mg/24 _HR 600-12 00 below low normal The urine P resul t was verif ied by mady lozada guerrero sis. Not Available [facility] ([facility]) [address] [place], [address], 10/26/2024 06:55:10 10/20/1910/26/2024 LITHO LINK 24HR URINE PANEL ammonium, urine 12 mmol/ 24_HR 15-60 below low normal Not Available [facility] ([facility]) [address] [place], [address], 10/26/2024 06:55:10 10/20/1910/26/2024 LITHO LINK 24HR URINE PANEL chloride, urine 202 mmol/ 24_HR 70-250 Not Available [facility] ([facility]) [address] [place], [address], 10/26/2024 06:55:10 10/20/1910/26/2024 LITHO LINK 24HR URINE PANEL sulfate, urine 22 mEq/2 4_HR 20-80 The urine Sul resul t was verif ied by repea t guerrero sis. Not Available [facility] ([facility]) [address] [facility], [place], [address], 10/26/2024 06:55:10 10/20/19 25 10/26/2024 LITHO LINK 24HR URINE PANEL urea nitrogen, urine 8.30 g/24_ HR 6.00-1 4.00 Not Available [facility] ([facility]) [address] [facility], [place], [address], 10/26/2024 06:55:10 10/20/1910/26/2024 LITHO LINK 24HR URINE PANEL protein catabolic rate 0.7 g/kg/ 24_HR 0.8-1. 4 below low normal Not Available [facility] ([facility]) [address] [facility], [place], [address], 10/26/2024 06:55:10 10/20/19 25 10/26/2024 LITHO LINK 24HR URINE PANEL creatinine, urine 1441 mg/24 _HR not applic . Note the exces sive varia tion in creat inine excre tion, sugge sting a discr epanc y in the colle ction proce ss. The urine creat inine resul t was verif ied by repea t guerrero sis. Not Available [facility] ([facility]) [address] [facility], [place], [address], 10/26/2024 06:55:10 10/20/1910/26/2024 LITHO LINK 24HR URINE PANEL creatinine/k g body weight 15.5 mg/24 _HR/k g 11.9-2 4.4 Not Available [facility] ([facility]) [address] [facility], [place], [address], 10/26/2024 06:55:10 10/20/19 25 10/26/2024 LITHO LINK 24HR URINE PANEL calcium/kg body weight 1.8 mg/24 _HR/k g <4.0 Not Available [facility] ([facility]) [address] [facility], [place], [address], 10/26/2024 06:55:10 10/20/19 25 10/26/2024 LITHO LINK 24HR URINE PANEL calcium/crea tinine ratio 116 mg/g_ creat 34-196 Not Available [facility] ([facility]) [address] [facility], [place], [address], 10/26/2024 06:55:10 10/20/1910/26/2024 LITHO LINK 24HR URINE PANEL comment Note Not Available [facility] ([facility]) [address] [facility], [place], [address], 10/26/2024 06:55:10 12/15/19 24 12/15/2023 MRI, cervi loreto spine , w/o contr ast [place] [address] [place] [address] Patien t Name: TAY lozada : 952 Patien t Orderi ng Provid [...] listhe sis of C4 on C5 and assembler lay ups ior listhe sis of C5 on C6. There is no fractu re or pathol ogic intrao sseous lesion . There is severe anteri or margin al osteop hytic spurri ng. No parasp inous soft tissue abnorm ality is identi fied. The visual ized spinal cord and assembler lay ups ior fossa of the brain are normal [...] Taylor alcantara MD on 2023 5:06 PM [facility] Radiology [facility] [address] [place] [address], [phone], 01/27/2024 16:57:41 12/16/19 24 12/15/2023 MRI, lumba r spine , w/o contr ast [facility] [address] [facility] [place] [place] [address] Patien t Name: TAY lozada : 952 [...] is prior discec vivi, interb finn graft, assembler lay ups ior fusion and cliff ctomy at L4-L5. There is parama gnetic artifa ct from the pedicl e screws , assembler lay ups ior fusion hardwa re and interb finn [...] spurri ng and minima l facet arthro joceiln. There is no centra l canal stenos [...] alcantara MD on 2023 7:09 AM [email or web address] [facility] Radiology [facility] [address] [place], [address], 01/04/2024 08:05:34 12/16/19 24 12/15/2023 CT, lumba r spine , w/o contr ast [facility] [address] [place] [address] Patiryan t Name: TAY Duarte t : 954 Patiryan t Orderi ng Provid [...] is prior discec vivi, interb finn graft, assembler lay ups ior fusion and cliff ctomy at L4-L5. There is beam harden ing artifa ct from the pedicl e screws , assembler lay ups ior fusion hardwa re and interb finn spacer . There is no eviden ce of loosen ing of the hardwa re or hardwa re failur e. There is mild levocu rvatur e from L1 throug h L3 and mild dextro curvat ure from L3 throug h L5. There is minima l assembler lay ups ior listhe sis of L1 on L2 [...] There is bridgi ng bone in the assembler lay ups ior elemen ts. There is severe left [...] alcantara MD on 2023 7:12 AM [email or web address] [facility] Radiology [facility] [address] [place] [address], [phone], 01/04/2024 08:05:33 07/13/19 25 07/12/2024 XR, abdom en, 1 view No observ ation record ed. [email or web address] Not Available 06/17 20:13:39 07/13/1907/12/2024 CT, abdom en + pelvi s, w/o contr ast [address] [place] [address] Patien t Name: TAY Duarte t : [...] Ward Trejo MD on 025 2:[address], [address], 07/13/2024 18:43:42 Result Notes Documentation Provider Name and Address Organization Details Recorded Time Mri, Cervical Spine, W/o Contrast : [address] [address] Patient Name: TAY THOMAS Patient : 1955 [...] By: Vlad Bryant MD O ANN PA-C [address] [place] [address], [phone], [facility] 01/27/2024 16:57:41 Mri, Lumbar Spine, W/o Contrast : [address] [address] Patient Name: TAY THOMAS Patient : 1955 [...] Interpreted By: Vlad Bryant MD BARFIELD MD [address] [place] [address], [phone] [place] [address] 01/04/2024 08:05:34 Ct, Lumbar Spine, W/o Contrast : [facility] [address] [place] [address] Patient Name: TAY THOMAS Patient : 1955 [...] Interpreted By: Vlad Bryant MD BARFIELD MD [address] [place] [address], [phone] 01/04/2024 08:05:33 Ct, Abdomen + Pelvis, W/o Contrast : [address] [address] Patient Name: TAY THOMAS Patient : 1955 [...] the right Interpreted By: Ward Trejo MD LEEP MD [address] [place] [address], [phone] 07/13/2024 18:43:42 Problems No Known Problems Procedures Surgical History Date Name Laterality Status Provider Name and Address Organization Details Recorded Time 07/13/19 25 Post Void Residual; Ultrasound completed Joy Stone [facility] 07/12/2024 13:54:08 04/11/19 25 Biopsy Skin Lesion; Tangential completed Holland Candelaria [facility] 04/11/2024 14:41:10 04/11/19 25 Injection - Intralesional completed DUGLAS BASURTO MD [address] [place] [address], [phone], [facility] 04/11/2024 18:30:27 04/11/19 25 Destruction Premalignant Lesion(s) [facility] 14:44:27 01/29/20 23 Lumbar Epidural Steroid Injection - Parth completed PERI CANTOR MD [address] [place] [address], [phone], [facility] 01/28/2023 14:14:59 09/10/19 23 Cervical MBB 2 level - Parth completed PERI CANTOR MD [address] [place] [address], [phone], [facility] 09/09/2022 16:11:18 08/16/19 23 Cervical MBB 2 level - Parth completed PERI CANTOR MD [address] [place], [address], [facility] 08/15/2022 15:23:46 05/04/19 23 Back Surgery completed Alana Streeter [facility] 07/16/2022 08:57:41 04/30/19 18 Shave Lesion; trunk, arm, leg completed MARIA DEL ROSARIO ODOM MD [address] [place], [address], [facility] 04/30/2017 22:32:02 04/30/19 18 Destruction BN Lesions completed Aylin Toussaint [facility] 04/29/2017 08:43:13 Orthopedic Surgery completed Balta Pérez [facility] 11/03/2016 13:55:36 Imaging Results None recorded. Procedure Notes None recorded. Medical Equipment None Reported. Allergies Allergen ID Allergen Name Allergen Category Reaction Reaction Severity Criticality Documentation Date Start Date Code Code System Note Provider Name and Address Organization Details Recorded Time 084117 lisinopri l medicatio n facial swelling Not available Not available 07/16/2022 44317 RxNorm Alana Streeter [facility] 3 08:45:16 903934 gabapenti n medicatio n respirato ry distress Not available low 09/29/2024 36258 RxNorm Elke Garcia [facility] 5 15:48:44 Medications Name Sig Start Date Stop Date [...] tablets in a dose pack as directed 09/29 completed Not Available Not Available Not Available prednison e 20 mg tablet Take 1 [...] 3 times a day by oral route. 09/29 completed Not Available Not Available Not Available diclofena c sodium 75 mg tablet,de layed [...] completed Not Available Not Available Not Available potassium citrate ER 15 mEq (1,620 mg) tablet,ex tended release Take 1 tablet twice a day by oral route for 90 days. 2024 active Not Available Not Available Not Avai lable Vitals Date Recorded Body height Body mass index (BMI) Body weight Provider Name and Address Organization Details Last Updated DateTime 07/12/2024 185.42 cm 29 kg/m2 27621.32 g Joy Lama [facility] 07/12/2024 13:49:16 Date Recorded Body height Body mass index (BMI) Body weight Provider Name and Address Organization Details Last Updated DateTime 07/26/2024 185.42 cm 29 kg/m2 78424.32 g Betsy Lee [facility] 07/26/2024 08:49:59 Date Recorded Body height Body mass index (BMI) Body weight Provider Name and Address Organization Details Last Updated DateTime 09/29/2024 185.42 cm 27 kg/m2 97256.44 g Elke Garcia [facility] 09/29/2024 15:48:18 Date Recorded Body height Body mass index (BMI) Body weight Systolic And Diastolic Provider Name and Address Organization Details Last Updated DateTime 11/23/2023 185.42 cm 32.3 kg/m2 764887.13 g 120/82 mm[Hg] Dalila Lozada [facility] 11/23/2023 09:06:44 Social History Question Answer Notes LastModified by Breathometer Details LastModified Time Tobacco Smoking Status Current Some Day Smoker [facility] 11/03/2016 13:55:22 How Much Tobacco Do You Chew? None [email or web address] Information not available 07/30/2020 Marital Status [email or web address] Informatio n not available 07/30/2020 What Was The Date Of Your Most Recent Tobacco Screening? 09/29/2024 [email or web address] Information not available 09/29/2024 How Much Tobacco Do You Smoke? No [email or web address] Information not available 07/16/2022 Sex: Male Functional Status Question Answer Note LastModified by [email or web address] Details LastModified Time Do you or have you ever used any other forms of tobacco or nicotine? No [email or web address] Information not available 07/16/2022 What is your level of alcohol consumption? Occasional Information not available 07/30/2020 Are you currently employed? No [email or web address] Information not available 07/16/2022 Do you or have you ever used e-cigarettes or vape? Never used electronic cigarettes [email or web address] Information not available 07/30/2020 What is your exercise level? Heavy [email or web address] Information not available 07/16/2022 Mental Status None recorded. Family History Relationship Description Onset Age of this Age Resolved Age Notes LastModified by Organization Details LastModified Time Father Heart disease [email or web address] Not available 07/16 08:46:24 Brother Heart disease [email or web address] Not available 07/16 08:46:24 Paternal Grandfather Heart disease [email or web address] Not available 07/16 08:46:35 Medical History Condition Response Coronary Artery Disease N Gout Y Other N Kidney Cyst N Kidney Stones Y Enlarged Prostate N Heart Arrhythmia N Head Trauma/Injury N Erectile Dysfunction Y Emphysema N Sexually Transmitted Disease N Depression N COPD N Pneumonia N Incontinence N Prostate Problems N Cancer Prostate N Paralysis N Anxiety Disorder N Hemorrhoids N Autoimmune disease N Obesity N Arthritis Y Infertility N Blood Clot N Acid Reflux (GERD) N Hematuria N Cancer N Stroke N Melanoma Y Neck Injury N Skin Cancer Y Previous Radiation Therapy? N Neurologic Disorder N Kidney Disease N Squamous Cell Carcinoma N Heart Conditions Y Migraines N Kidney or Bladder Problems N If you get up at night to urinate, how m any times? Y Acne N Skin Problems N Urinary Problems N Constipation N Brain Injury N Ulcers N Other Skin Condition N Do you get up at night to urinate? Y Rheumatic Fever N Prostate Hypertrophy N Bleeding Disorder N Low Testosterone Y Tuberculosis N Previous Chemotherapy? N Genetic Disorder N AIDS/HIV N BPH N Urinary Tract Infection Y Asthma N Cardiac Disease Y Thyroid Disorder Y Hepatitis N Included as Review of Systems N PCOS N Anxiety/Depression N Thyroid Disease N Colon Cancer N Hernia N Colon/Rectal Disorders N Ostomy N Glaucoma N Pacemaker N Anesthesia Complications N Genitourinary Disease N Varicose Veins N Radiation Therapy N Chronic Kidney Disease N Blood Thinners N Bladder or Kidney Problems N Back Injury Y Alcohol Overuse/Alcohol Abuse N High Cholesterol Y High PSA N Nervous System Disorder N Liver Disease N Organ Transplant N Dialysis N Allergies/Hayfever N False Teeth N Chronic Obstructive Pulmonary Disease N Parkinson's Disease N Chemotherapy N Transplant N Anemia N Multiple Sclerosis N Immune System Disorder N Chest Pain N Back Pain Y Proteinuria N Heart Attack (AZ) Y Mental Illness N Neurological Problems N Ovarian Cancer N Diabetes N Seizures/Epilepsy N Genitourinary problem(s) N Congestive Heart Failure (CHF) N Kidney Failure N Eczema N Basal Cell Carcinoma N Sleep Apnea N Heart Disease Y Bronchitis N Hypertension Y Osteoporosis N Past Encounters Encounter ID Performer Location Encounter Start Date Encounter Closed Date Diagnosis/Indication Diagnosis SNOMED-CT Code Diagnosis ICD10 Code Diagnosis IMO Codes Diagnosis Note [id number] BENJAMIN PENDLETON MD [facility] [address] [place] [address] 11/03/2016 13:45:25 11/03/2016 16:50:35 Knee pain 50528548 M25.562 Mr Thomas has a fmeniscus root tear and early medial compartmen t overload. I recommend restricted weight bearing and a course of NSAIDs. [id number] BENJAMIN PENDLETON MD [facility] [address] [place] [address] 11/17/2016 09:18:10 12/15/2016 07:32:42 Knee pain 48841618 M25.562 Mr Thomas has a meniscus root tear and early medial compartmen t overload. I recommend restricted weight bearing, weight loss and wean from diclofenac . 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 I recommend activity modificati on and an exercise program. [id number] MD FIDEL JONES [facility] [address] [place] [address] 07/30/2020 10:31:55 07/30/2020 11:24:51 Ureteric stone 41447329 N20.[address] scan with the findings as above. Plan as above. [id number] AREN BARFIELD MD [facility]OS[facility]G [facility] CL[facility] [address] [place] [address] 05/19/2022 09:50:13 06/03/2022 04:46:23 [id number] AREN BARFIELD MD SURGERY SCHEDULE [address] [place] [address] 05/23/2022 09:05:55 05/23/2022 10:51:10 [id number] [facility] BARFIELD [facility] [address] [address] 06/09/2022 08:55:00 06/10/2022 04:47:18 Postoperative care 985874645 Z48.89 [id number] PERI CANTOR MD [facility] CLOSED [address] [place] [address] 1 07/16/2022 08:33:20 07/16/2022 16:07:09 Displacement of cervical intervertebral disc without myelopathy 76753983 M50.20 Degenerati on of cervical intervertebral disc 14676682 M50.30 Cervical spondylosis 387 878324 M47.812 [id number] ANY KILPATRICK PA-C [facility] [address] [place] [address] 09/25/2022 13:04:15 09/26/2022 04:37:05 Postoperative care 847459524 Z48.89 [id number] PERI CANTOR MD [facility] [address] [place] [address] 1 08/15/2022 13:40:34 08/15/2022 15:57:04 Cervical spondylosis 426014458 M47.812 [id number] PERI CANTOR MD [facility] NAL CHARGES [address] [place] [address] 1 09/09/2022 14:42:39 09/09/2022 16:28:31 Cervical spondylosis 586489391 M47.812 [id number] SUMMER GONZALEZ APRN [facility]OSUR[facility] [address] [facility] [place] [address] 0 12/18/2022 12:45:42 12/19/2022 04:41:53 Lumbar radiculopathy 804952391 M54.16 Lumbar spondylosis 14537 0009 M47.896 History of lumbar fusion 2543186963 9106 Z98.1 [id number] PERI CANTOR MD [facility] CLOSED [address] [place] [address] 1 01/28/2023 13:19:54 01/28/2023 16:07:52 Degeneration of lumbar intervertebral disc 09477499 M51.36 Lumbar radiculopathy 128 338849 M54.16 [id number] PERI CANTOR MD [facility] PROFESS[facility] NAL CHARGES [address] [facility], [address] [place] [address] 01/28/2023 14:06:41 01/28/2023 14:29:56 Lumbar radiculopathy 803006804 M54.16 [id number] VLAD LEPE MD [facility] [address] [facility] [address] [facility] 0 05/11/2023 11:50:55 05/11/2023 13:08:17 Urolithiasis 28951344 N20.9 Plan as above will arrange for bilateral ureterosco py and laser of stones possible stent placement [id number] AREN BARFIELD MD SURGERY SCHEDULE [address] [place] [address] 06/16/2023 08:07:40 06/18/2023 09:19:49 [id number] LUCHO ANN PA-C [facility] [address] [facility] [facility] [address] [place] [address] 11/23/2023 09:02:39 11/24/2023 04:46:06 Lumbar radiculopathy 813154611 M54.16 Cervical radiculopathy 82530730 M54.12 Low back pain 297923389 M54.50 [id number] DUGLAS BASURTO MD [facility] [address] [place] [address] 04/11/2024 13:49:58 04/11/2024 16:09:51 Solar lentigo 87138727 L81.4 Benign Reassuranc eRecommend ed sun protective clothing and a mineral based sunscreen 30 SPF or higher lotion OTC daily Raised ebenezer orrheic keratosis 3974789628 78014 L82.1 Benign Reassuranc e Hemangioma 519532415 D18 .00 Benign Reassuranc e Multiple b enign melanocytic nevi 937546547 D22.9 Benign Reassuranc e History of squamous cell carcinoma of skin 545143175 Z85.828 [facility]-heale d scar History of Malignant melanoma 593159154 Z85.89 [facility]-heale d scar Actinic keratosis 863337 007 L57.0 Education then treated with LN; pt tolerated well advised pt what to expect with freezing Cyst of skin 959637584 L 72.9 Injected with kenalog 2mg/cc, total of 0.1cc injectedND C#: [id number] #:[id number] xp: 05/2025 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 37534889 D48.5 A.) Right proximal thigh r/o lentigo vs lentigo malignaB.) Right distal thigh r/o lentigo vs lentigo malignasha ve biopsy [facility] care instructio ns providedpa tient consents for procedure and photo monitoring [id number] JAIME THOMAS CUA, [facility] [address],[place] [address] 07/12/2024 13:17:09 07/12/2024 14:30:00 Urolithiasis 04796550 N20.9 History of Disorder 3128 83120 Z87.106 0000980 Recurrent urinary tract infection 366038757 N39.0 745885 Recurrent kidney stone 3736714318 581482 N20.0 9760069 Chill 64580702 R68.83 37722 Flank pain 007247471 R10 .9 Z87.442 3456479899 Kidney stone 80350917 N2 0.0 93184 Acute urin ermelinda tract infection 228160026 N39.0 121137 [id number] JAIME THOMAS CUA, [facility] [address] [place] [address] 07/26/2024 08:34:35 07/26/2024 09:22:25 Urolithiasis 86422124 N20.9 Flank pain 057431697 R10 .9 Z87.442 [id number] History of Disorder 3128 00903 Z87.858 2602512 Recurrent urinary tract infection 315062108 N39.0 650122 Recurrent kidney stone 3010471390 951680 N20.0 1630135 Kidney stone 86972106 N2 0.0 38462 Acute urin ermelinda tract infection 829870495 N39.0 046565 [id number] MALA PALMA MD [facility] [address] [place] [address] ,[address] [place] [address] 09/29/2024 15:03:20 09/29/2024 16:39:15 Kidney stone 78189051 N20.0 78502 We discussed kidney stone prevention with adequate hydration, reduced dietary intake of sodium and oxalate, increased dietary citrate.- Increase fluid intake to 2.5 liters daily. - Reduce sodium and oxalate intake. - Consider potassium citrate for urine pH adjustment . Benign pro static hyperplasia with outflow obstruction 443140216 N13.8 N40.1 17604096 - Continue tamsulosin . - Monitor urinary symptoms. Health Concerns Section Related Observation LastModified by Organization Detai ls LastModified Time None Recorded Concern Status LastModified by Organization Details LastModified Time None Recorded Advance Directives Directive None Recorded Payers Insurance Date Sequence Insurance Name Policy Number Policy Huang Covered Member ID Huang Member ID Guarantor Name 07/19/2024 1 [place] Tay Thomas [id number] Tay Thomas 07/19/2024 1 [place] [id number] Tay Thomas [id number] Tay Thomas 07/30/2020 1 [place] [id number] Kelsie Thomas [id number] Tay Thomas 07/19/2024 1 [place] [id number] Tay Thomas [id number] Tay Thomas 09/26/2024 1 [place] Tay Thomas [id number] Tay Thomas 10/03/2024 2 [employer] (MEDICARE SUPPLEMENT) Tay Thomas [id number] Tay Thomas Notes Date Note Type Note Provider Name and Address Organization Details Recorded Time 11/23/2023 text/html ROS as noted in the HPI Tay Thomas is a 68-year-old presenting to [...] I in clinic today. LUCHO ANN PA-C [address] [place] [address], [phone], [facility] 11/23/2023 09:43:39 04/11/2024 text/html ROS as noted in the HPI New patient- Self referred LUCAS with Dr. Maharaj 68 y/o [...] history of malignant melanoma. DUGLAS BASURTO MD [address] [place] [address], [phone], [facility] 04/11/2024 18:33:13 07/12/2024 text/html The patient is [...] formal radiologist reading pending. DEVIN PUENTE PA-C [address] [place], [address], [facility] 07/12/2024 20:02:52 07/26/2024 text/html The patient is [...] he is producing/passing stones. DEVIN PUENTE PA-C [address] [place], [address], [facility] 07/26/2024 13:03:01 09/29/2024 text/html The patient is a 68-year-old male presenting for follow-up evaluation of urolithiasis and benign prostatic hyperplasia with lower urinary symptoms. He has a history of kidney stones, with recent analysis showing calcium oxalate stones and elevated urinary calcium and oxalate. The 24-hour urinalysis indicated elevated calcium oxalate saturation and uric acid saturation. The patient takes tamsulosin for benign prostatic hyperplasia and reports urinating every three to four hours during the day. He has been advised to increase fluid intake and reduce dietary sodium and oxalate. Documentation on this patient encounter was supported using voice-enabled Al technology. The patient consented to recording for the purpose of documenting the encounter. Provider reviewed content of the generated note prior to signature. - Kidney stone analysis: Calcium oxalate stones - 24-hour urinalysis: Elevated calcium oxalate saturation, elevated urinary calcium and oxalate, pH 5.463, elevated uric acid saturation at 1.64 MALA PALMA MD [address] [place], [address], [facility] 10/02/2024 15:04:51
--- OUTSIDE RECORDS SUMMARY | 2024-12-14 12:22 | XMS_ITS | Encounter Summary ---
Author Organization [employer] ([place], [place], [place], [place]) Address [address] [place] [address] Care Team Providers Care Pile Header Name Role Phone Emily Estrada Primary Care Provider Unavail able [facility], Provider Not In The System Primary Care Provider Unavailable Encounter Details Date Type Department Care Team (Late st Contact Info) Description 07/30/2020 Transcribed Document [facility] [place] Family Medicine [address] [place] [address] ProviderJodie MD [address] [place], [place] [address] Social History Tobacco Use Types Packs/Day Years [...] Historical ProviderMD - 07/30/2020 7:15 PM CDT [facility] Main OR Preop Summary Primary Physician: VLAD LEPE MD-URO Finalized Date/Time: 08/15/20 14:01:29 Pt. Name: TAY THOMAS /Sex: 1955 Male Med Rec #: [id number] Physician: VLAD LEPE MD-URO Financial #: [id number] Pt. Type: O Room/Bed: /16 Admit/Disch: 07/30/20 13:09:00 - Institution: [facility] PreOp Case Times Entry 1 In Preop 07/30/20 13:23:00 Ready for Holding n/a Room Patient Ready for 07/30/20 15:00:00 Surgery Patient Out of Preop 07/30/20 19:03:00 Patient Out of n/a Holding Room Last Modified By: Khloe Barclay Nurse Caseworker Protective Services 08/15/20 14:01:27 [facility] PreOp Case Times Audit 08/15/20 14:01:27 Leather Seasoner: [id number] Modifier: [id number] <+> 1 Patient Out of Preop Finalized By: Khloe Barclay, Nurse Computer Technology Trainer Signatures Signed By: Khloe Barclay Nurse 08/15/20 14:01 Electronically signed by Jane [facility] Conversion Fuller Brush Worker Cerner at 06/03/2022 10:36 PM CDT documented in this encounter Plan of Treatment Not on file documented as of this encounter Visit Diagnoses Not on filedocumented in this encounter Care Teams Pile Header Relationship Specialty Start Date End Date Emily Estrada [address] [place] [phone] PCP - General 05/14/22 06/09/24 [facility], Provider Not In The System, [place] [address] PCP - General 07/18/24 Lolita Belcher [address], [address] [place] [address] Advanced Registered Nurse Practitioner Primary Care 06/10/24 documented as of this encounter
--- OUTSIDE RECORDS SUMMARY | 2024-12-14 12:22 | XMS_ITS | Encounter Summary ---
Author Organization [employer] ([place], [place], [place], [place]) Address [address] [place] [address] Care Team Providers Care Certified Endoscopy Technician Name Role Phone Emily Estrada Primary Care Provider Unavail able [facility], Provider Not In The System Primary Care Provider Unavailable Encounter Details Date Type Department Care Team (Late st Contact Info) Description 07/30/2020 Transcribed Document [facility] [place] [address] [place] [address] ProviderJodie MD [address] [place] [address] Social History Tobacco Use Types Packs/Day Years [...] my office earlier today after discharge from [facility] secondary to a 7 mm stone in [...] prepped and draped in normal fashion. The 21-Greek cystoscopy sheath was introduced under direct vision [...] to go easily passed, and therefore a 5-Greek open-ended ureteral catheter was placed over the [...] will remove his stent in 72 hours. /[id number] MD MARSHA Vo/ANNA / TDA / MODL /[id number] CC: Dr. Lalo Young MD Electronically signed by Jane, [facility] Conversion Ballistics Teacher Cerner at 06/03/2022 10:53 PM CDT documented in this encounter Plan of Treatment Not on file documented as of this encounter Visit Diagnoses Not on filedocumented in this encounter Care Teams Certified Endoscopy Technician Relationship Specialty Start Date End Date Emily Estrada [address] [place] [phone] PCP - General 05/14/22 06/09/24 [facility], Provider Not In The System, [place] [address] PCP - General 07/18/24 Lolita Belcher [address] [place] [address], [address] [place] [address] Advanced Registered Nurse Practitioner Primary Care 06/10/24 documented as of this encounter
--- OUTSIDE RECORDS SUMMARY | 2024-12-14 12:22 | XMS_ITS | Encounter Summary ---
Author Organization [employer] ([place], [place], [place], [place]) Address [address] [place] [address] Care Team Providers Care Hose Turner Name Role Phone Eimly Estrada Primary Care Provider Unavail able [facility], Provider Not In The System Primary Care Provider Unavailable Encounter Details Date Type Department Care Team (Late st Contact Info) Description 07/30/2020 Transcribed Document [facility] [place] Family Medicine [address] [place] [address] ProviderJodie MD [address] [place] [address] Social History Tobacco Use Types [...] Jodie ProviderMD - 07/30/2020 6:30 PM CDT [facility] [place] [address] TAY THOMAS :1955 Visit Time:07/30/2020 What [...] Provider of: signs of infection, fever greater [id number], chills. unable to pass urine Follow-Up Appointments Follow Up with VLAD LEPE When Within 2 to 3 days Comments Call for follow up appointment Where: [address] [place] [address] [address] [place] [phone]- [facility] (1) Medications What How Much When [...] these instructions at home: Medicines ??? Take fjwh-ybb-bfxqbli and prescription medicines only as told by [...] or treat constipation, such as: ? Take myyu-eay-lbromia or prescription medicines. ? Eat foods that [...] of blood in your urine. ??? Take gopk-nui-jyktzwb and prescription medicines only as told by [...] provider. Document Revised: 10/14/2018 Document Reviewed: 10/14/2018 [employer] Patient Education ?? 2020 [employer]. Outpatient Surgery, Adult, Care After These instructions [...] and water are not available, use hand proctologist. ? Change your dressing as told by [...] or a bad smell. Medicines ??? Take dqia-clp-giyufat and prescription medicines only as told by [...] provider. Document Revised: 05/03/2018 Document Reviewed: 05/25/2016 [employer] Patient Education ?? 2020 [employer] Ureteroscopy Ureteroscopy is a procedure to [...] including vitamins, herbs, eye drops, creams, and yyhb-mzo-olqrrdz medicines. ??? Any problems you or family [...] provider. Document Revised: 01/15/2018 Document Reviewed: 11/14/2016 [employer] Patient Education ?? 2020 [employer]. Emergency Awareness and Preventative Care STROKE is [...] Assistance with quitting is available by contacting 1-616-WHLQ-NOW. This is a free resource providing counseling, [...] was given the opportunity to ask questions. Patient/Car Sweeper Name: Patient/Car Sweeper Signature: Relationship to Patient: Clinician/Hospital Car Sweeper Signature: Date: documented in this encounter Plan of Treatment Not on file documented as of this encounter Visit Diagnoses Not on filedocumented in this encounter Care Teams Hose Turner Relationship Specialty Start Date End Date Emily Estrada [address] [place] [address] [address] ADRIEL Jackson [phone] PCP - General 05/14/22 06/09/24 [facility], Provider Not In The System, [place] [address] PCP - General 07/18/24 Lolita Belcher [address] [facility], [address] [place] [address] Advanced Registered Nurse Practitioner Primary Care 06/10/24 documented as of this encounter
--- OUTSIDE RECORDS SUMMARY | 2024-12-14 12:22 | XMS_ITS | Encounter Summary ---
Author Organization [employer] ([place], [place], [place], [place]) Address [address] [place] [address] Care Team Providers Care Non Profit Director Name Role Phone [facility], Provider Not In The System MD Primary Care Provider Unavailable Reason for Referral * Diagnostic X-Ray (Emergency) - New Request Specialty Diagnoses / Procedures Referred By Linwood lozada Referred To Contact Diagnoses Calculus of kidney Procedures X-ray abdomen KUB 1 view Shi Alvarenga PA [address] [place] [address] [place] [address] Phone: tel: fax: Referral ID Status Reason Start Date Expiration Date V isits Requested Visits Authorized [id number] New Request 07/12/2024 07/12/2025 1 1 Encounter Details Date Type Department Care Team (Late st Contact Info) Description 07/12/2024 Outside Orders [facility] Diagnostic Imaging - [place] [facility] [address] [place] [address] [address] [place] [phone] Shi Alvarenga PA [address] [place] [address] [address] [place] [id number] Calculus of kidney (Primary Dx) Social History [...] your living situation today? I have a [facility] place to live 06/08/2024 Think about [...] Do you speak a language other than [place] [facility]? No 06/08/2024 Do you want help with [...] kidney documented in this encounter Care Teams Non Profit Director Relationship Specialty Start Date End Date [facility], Provider Not In The System, [place] [address] PCP - General 07/18/24 Lolita Belcher [facility] [address], [address] [place] [id number] Advanced Registered Nurse Practitioner Primary Care 06/10/24 documented as of this encounter
--- OUTSIDE RECORDS SUMMARY | 2024-12-14 12:22 | XMS_ITS | Encounter Summary ---
Author Organization [employer] ([place], [place], [place], [place]) Address [address] [place] [address] Care Team Providers Care Compensation And Hris Analyst Name Role Phone Emily Estrada Primary Care Provider Unavail able [facility], Provider Not In The System Primary Care Provider Unavailable Encounter Details Date Type Department Care Team (Late st Contact Info) Description 07/30/2020 Transcribed Document [facility] [place] [address] [place] [address] ProviderJdoie MD [address] [place], [place] [address] Social History Tobacco Use Types Packs/Day Years [...] Historical ProviderMD - 07/30/2020 7:15 PM CDT [facility] Main OR PACU Summary Primary Physician: VLAD LEPE MD-URO Finalized Date/Time: 08/01/20 10:01:46 Pt. Name: TAY THOMAS /Sex: 1955 Male Med Rec #: [id number] Physician: VLAD LEPE MD-URO Financial #: [id number] Pt. Type: O Room/Bed: Admit/Disch: 07/30/20 13:09:00 - Institution: [facility] Main OR PACU I Case Times Entry 1 In PACU I 07/30/20 20:03:00 Ready for PACU 07/30/20 21:02:00 Discharge Discharge from PACU 07/30/20 21:02:00 I Last Modified By: Herlinda Humphrey Rn 07/30/20 21:02:55 Finalized By: Zenon Valentine RN Document Signatures Signed By: Khloe Barclay, Nurse Butter Production Supervisor 07/31/20 14:42 Herlinda Humphrey Rn 07/30/20 21:03 Zenon Valentine RN 08/01/20 10:01 Unfinalized History Date/Time Username Reason for Unfinalizing Freetext Reason for Unfinalizing 07/31/20 14:42 [id number] Correct Documentation 08/01/20 10:01 STEVE Correct Documentation Electronically signed by [facility] Conversion Degreaser Cerner at 06/03/2022 10:49 PM CDT documented in this encounter Plan of Treatment Not on file documented as of this encounter Visit Diagnoses Not on filedocumented in this encounter Care Teams Compensation And Hris Analyst Relationship Specialty Start Date End Date Emily Estrada [address] [place] [phone] PCP - General 05/14/22 06/09/24 [facility], Provider Not In The System, [place] [address] PCP - General 07/18/24 Lolita Belcher [address] [facility], [address] [address] Advanced Registered Nurse Practitioner Primary Care 06/10/24 documented as of this encounter
--- OUTSIDE RECORDS SUMMARY | 2024-12-14 12:22 | XMS_ITS | Clinical Summary ---
Author Organization [employer] ([place], [place], [place], [place]) Address [address] [place] [address] Care Team Providers Care Navy Seal Name Role Phone [facility], Provider Not In The System MD Primary [...] - 12/05/2024 11:59 PM EDT Hospital En[facility] [address] [facility] [address] [place] [address] Indigo Ferrera PA Pain in left knee Discharge Disposition: Home or Self Care from Last 3 Months Family History Medical [...] Do you speak a language other than [place] at [facility]? No 06/08/2024 Do you want [...] - Risk 60-74 years 1-dose series) 2013 Falls Risk Screening 02/17/2024 COVID-19 VACCINE (3 - 2024- season) 2024, 05/05/2020 Influenza Vaccine (#1) 2024 Tobacco Cessation Counseling and Screening (12+) 07/18/2025 07/18/2024 Medical Devices Implanted Type Area Auto Machinist Device Identifier Shelf Expiration Date Model / Serial / Lot [facility] Form[facility] Cell [facility] Bl-1600-002 - [id number] Implanted:Qty : 1 on 05/03/2022 by Edson Barfield MD at [facility] IMPLANTS N/A: Back LIFENET:LIFENET TRANSPLANT SRV 04/14/2023 BL-1600-0 [id number] / Scr Spne Arash Fix 7x50mm 750 - [id number] Implanted:Qty : 4 on 05/03/2022 by Edson Barfield MD at [facility] IMPLANTS N/A: Back J &J:DEPUY:DEPUY SPINE -7 50 / 7 50 / Mis Jazzy Ply Scrw Set Ti 000 - [id number] Implanted:Qty : 4 on 05/03/2022 by Edson Barfield MD at [facility] IMPLANTS N/A: Back J &J:DEPUY:DEPUY SPINE 15-0 00 / 0 00 / Teo Pre Load 40mm -040 - [id number] Implanted:Qty : 2 on 05/03/2022 by Edson Barfield MD at [facility] IMPLANTS N/A: Back J &J:DEPUY:DEPUY SPINE [id number] 40 / -0 40 / Cage Eit Plif H 11mm 8d 11/11 [id number] - [id number] Implanted:Qty : 1 on 05/03/2022 by Edson Barfield MD at [facility] IMPLANTS N/A: Back J &J:DEPUY:DEPUY SPINE 03/18/2027 [id number] / / [id number] Sealant Durasl Spine 5ml [id number] - [id number] Implanted:Qty : 1 on 05/03/2022 by Edson Barfield MD at [facility] IMPLANTS N/A: Back [employer] 10/17/[id number] / / [id number] Pwdr Cellerate Rx 5gm Surgical [id number]-[id number] - [id number] Implanted:Qty : 1 on 05/03/2022 by Edson Barfield MD at [facility] IMPLANTS N/A: Back [facility] [employer] [facility] 12/17/2023 I-05-SA CRXP / / [id number] Stent Uret Percflx + 4.8frx28 [id number] - [id number] Implanted:Qty : 1 on 06/09/2024 by Kareem Young MD at [facility] IMPLANTS Right: Ureter [employer]:UROLOGY/GYNE COLOGY 10/18/2026 [id number] / / [id number] Explanted Type Area Auto Machinist Device Identifier Shelf Expiration Date Model / Serial / Lot Cath Uret Pollack 5fr [id number] - [id number] Implanted:Kareem Blandon MD (Quantity not on file) Explanted:Qty: 1 on 06/09/2024 at [facility] Right: Ureter COOK 11/17/2026 [id number] / / [id number] Procedures Procedure Name Priority Date/Time Associated Diagnosis [...] dictated by Dr. Alec Mauricio. Transcribed by JAIME Russell 12/05/2024 3:[address] SCAN LEFT [...] Mauricio. Transcribed by Gregor Madrigal PA-C [facility] [place] Final Result from Last 3 Months Insurance MEDICARE [place] [address] [place] [address] [facility] SUPP Advance Directives For more information, please contact: [phone] * Full Code (Latest Code Status on [...] 5:45 PM 05/04/2022 4:41 PM Care Teams Navy Seal Relationship Specialty Start Date End Date [facility], Provider Not In The System, [place] [address] PCP - General 07/18/24 Lolita Belcher [address], [address] [place] [address] Advanced Registered Nurse Practitioner Primary Care 06/10/24
--- OUTSIDE RECORDS SUMMARY | 2024-12-14 12:22 | XMS_ITS | Encounter Summary ---
Author Organization [email or web address] ([place], [place], [place], [place]) Address [address] [place] [address] Care Team Providers Care Dry House Operator Name Role Phone Emily Estrada Primary Care Provider Unavail able [facility], Provider Not In The System Primary Care Provider Unavailable Encounter Details Date Type Department Care Team (Late st Contact Info) Description 07/30/2020 Transcribed Document [facility] [place] Family Medicine [address] [place] [address] ProviderJodie MD [address] [place], [place] [address] Social History Tobacco Use Types Packs/Day Years [...] filedocumented in this encounter Care Teams Dry House Operator Relationship Specialty Start Date End Date Emily Estrada [address] [place] [phone] PCP - General 05/14/22 06/09/24 [facility], Provider Not In The System, [place] [address] PCP - General 07/18/24 Lolita Belcher [address], [address] [place] [address] Advanced Registered Nurse Practitioner Primary Care 06/10/24 documented as of this encounter
--- OUTSIDE RECORDS SUMMARY | 2024-12-14 12:22 | XMS_ITS | Encounter Summary ---
Author Organization [facility] ([place], [place], [place], [place]) Address [address] [place] [address] Care Team Providers Care Aquaculture Farm Manager Name Role Phone Emily Estrada Primary Care Provider Unavail able [facility], Provider Not In The System Primary Care Provider Unavailable Encounter Details Date Type Department Care Team (Late st Contact Info) Description 07/30/2020 Transcribed Document [facility] – [place] Family Medicine [address] [place] [address] ProviderJodie MD [address] [place], [place] [address] Social History Tobacco Use Types Packs/Day Years [...] Historical ProviderMD - 07/30/2020 7:15 PM CDT [facility] Main OR IntraOp Summary Primary Physician: VLAD LEPE MD-URO Finalized Date/Time: 07/31/20 10:54:37 Pt. Name: TAY THOMAS /Sex: 1955 Male Med Rec #: [id number] Physician: VLAD LEPE MD-URO Financial #: [id number] Pt. Type: O Room/Bed: Admit/Disch: 07/30/20 13:09:00 - Institution: [facility] IntraOp Case Attendance Entry 1 Entry 2 [...] Fatima [employer] Pref Card Builder Role Performed Machine Puller, First Laser Lead Pastor Time In 07/30/20 19:05:00 07/30/20 19:05:00 Time Out 07/30/20 20:00:00 07/30/20 20:00:00 Procedure Ureteral Stone Ureteral Stone Manipulation Laser, Manipulation Laser, Ureteral Stent Insertion Ureteral Stent Insertion Other Attendee Superficial Wound Closed By: Last Modified By: Sara Dent, Sara Souza Rn 07/30/20 20:02:00 07/30/20 20:02:38 [facility] IntraOp Case Attendance Audit 07/30/20 20:02:38 Reducing System Operator: [id number] Modifier: [id number] <+> 5 Procedure 07/30/20 20:02:00 Reducing System Operator: [id number] Modifier: [id number] <+> Time Out 1 <*> Procedure [...] In <+> 5 Time Out 07/30/20 19:48:38 Reducing System Operator: [id number] Modifier: [id number] <+> 5 Case Attendee <+> 5 Role Performed 07/30/20 19:26:20 Reducing System Operator: [id number] Modifier: [id number] <+> Time In 1 <*> Procedure [...] Manipulation Laser, Ureteral Stent Insertion 07/30/20 18:34:03 Reducing System Operator: [id number] Modifier: [id number] <+> 1 Procedure <+> 2 Procedure <+> 3 Procedure <+> 4 Procedure [facility] IntraOp Case Times Entry 1 Patient In Room Time 07/30/20 19:05:00 Out Room Time 07/30/20 20:00:00 Anesthesia Start Time 07/30/20 19:05:00 Stop Time 07/30/20 20:00:00 Surgery / Procedure Times Start Time 07/30/20 19:15:00 Stop Time 07/30/20 19:56:00 Last Modified By: Sara Dent Rn 07/30/20 20:01:59 [facility] IntraOp Case Times Audit 07/30/20 20:01:59 Reducing System Operator: [id number] Modifier: [id number] <+> 1 Out Room Time <+> 1 Stop Time <+> 1 Stop Time [facility] IntraOp Communication Entry 1 Communication To Family/Significant other Communication By Sara Dent, Cassie Date and Time 07/30/20 19:04:00 Last Modified By: Sara Dent, Cassie 07/30/20 19:26:06 [facility] IntraOp Departure from OR Entry 1 Integumentary Assessment Integumentary WDL Assessment WDL Transfer/Handoff Transfer to PACU Phase I Handoff Method Phone call Post-op Transport Stretchandrzej/Quinnrerma Via Patient Transport CHIP EVANGELISTA, Accompanied by Jailene BENEDICT Carolyn, Rn Last Modified By: Sara Dent, Cassie 07/30/20 19:26:32 [facility] IntraOp Departure from OR Audit 07/30/20 19:26:32 Reducing System Operator: [id number] Modifier: [id number] <+> 1 Patient Transport Accompanied by [facility] IntraOp Fire Risk Assessment Entry 1 Fire [...] Modified By: Sara Dent Rn 07/30/20 19:18:49 [facility] IntraOp Fire Risk Assessment Audit 07/30/20 19:18:49 Reducing System Operator: [id number] Modifier: [id number] <+> 1 Fire Risk Assessment Verified Date/Time [facility] IntraOp General Case Control Operator Flow Coat 1 Case Information OR Cysto 01 [facility] Case Level 1 Room Verified Yes Wound Class II - Clean-Contaminated Specialty Urology Anesthesia Type General ASA Class 3 Diagnosis Preop Diagnosis RIGHT URETERAL STONE Postop Diagnosis SEE MD POST OP NOTE Last Modified By: Sara Dent Rn 07/30/20 19:20:43 [facility] IntraOp General Case Data Audit 07/30/20 19:20:43 Reducing System Operator: [id number] Modifier: [id number] <*> ASA Class 2 [facility] IntraOp Implant Log Entry 1 Type Implant (Synthetic) Implant Log Implant Type Other Implant STENT URET PERC + Identification [id number] Description Implant Quantity 1 Implant Site RT URETER Implant [id number] Identification Lot Number Implant [place] Identification Sci:Urology/Gynecology Sandblaster Stone Name: Implant [id number] Identification Catalog Number Implant Size [id number] Implant Has an Yes Expiration Date Implant Expiration 09/22/20 Date Tissue Implant Last Modified By: Sara Dent Rn 07/30/20 19:52:21 [facility] IntraOp Implant Log Audit 07/30/20 19:52:21 Reducing System Operator: [id number] Modifier: [id number] <+> 1 Implant Identification Description <+> 1 Implant Identification Lot Number <+> 1 Implant Identification Sandblaster Stone Name: <+> 1 Implant Size <+> 1 Implant Expiration Date <+> 1 Implant Identification Catalog Number <+> 1 Implant Has an Expiration Date [facility] IntraOp Intraoperative Assessment Entry 1 Handoff Method [...] Modified By: Sara Dent Rn 07/30/20 18:32:04 [facility] IntraOp Intraoperative Equipment Entry 1 Type Equipment [...] Modified By: Sara Dent Rn 07/30/20 19:20:37 [facility] IntraOp Intraoperative Equipment Audit 07/30/20 19:20:37 Reducing System Operator: [id number] Modifier: [id number] <-> Electrocardiogram (ECG) Electrode Five lead placement Placement [facility] IntraOp Laser Data/Safety Entry 1 Procedure Ureteral Stone Manipulation Laser Laser Data Laser Type Green light Laser Serial [id number] Number/Identificatio n Number Laser Mode Continuous Laser Mode Set By VLAD LEPE MD-URO Microscope Used? No Laser Fiber Used Yes Graff 10 Joules 0.5 Laser Safety Procedure personnel Measures Included received laser safety information, [place] of water/Saline immediately available, Fire extinguisher location [...] Modified By: Sara Dent Rn 07/30/20 19:47:23 [facility] IntraOp Laser Data/Safety Audit 07/30/20 19:47:23 Reducing System Operator: [id number] Modifier: [id number] <+> Graff 1 <*> Procedure Ureteral Stone Manipulation Laser 1 <+> Laser Safety Measures Included 1 <+> Joules 07/30/20 19:25:53 Reducing System Operator: [id number] Modifier: [id number] 1 <*> Procedure Ureteral Stone Manipulation Laser 1 <+> Laser Serial Number/Identification Number [facility] IntraOp Medication Admin Entry 1 Entry 2 Entry 3 Medication/Irrigant ARLET IRR NACL 0.9PCT lidocaine 2% urojet [place] Aida - [id number] 10ml jelester - [id number] Combo Med List Time Administered Route of [...] Modified By: Sara Dent Rn 07/30/20 19:48:06 [facility] IntraOp Medication Admin Audit 07/30/20 19:48:06 Reducing System Operator: [id number] Modifier: [id number] <+> 4 Medication/Irrigant <+> 4 Route of Administration <+> 4 Administered By <+> 4 Dose <+> 4 Time Administered <+> 4 Unit of Measure [facility] IntraOp Patient Positioning Entry 1 Procedure Ureteral [...] Modified By: Sara Dent Rn 07/30/20 18:34:04 [facility] IntraOp Patient Positioning Audit 07/30/20 18:34:04 Reducing System Operator: [id number] Modifier: [id number] <+> 1 Procedure [facility] IntraOp Sign In Entry 1 Patient, Site, [...] Modified By: Sara Dent Rn 07/30/20 18:33:45 [facility] IntraOp Sign Out Entry 1 RN Confirmation [...] Modified By: Sara Dent Rn 07/30/20 20:02:04 [facility] IntraOp Sign Out Audit 07/30/20 20:02:04 Reducing System Operator: [id number] Modifier: [id number] <+> 1 RN Sign Out Signature Date/Time [facility] IntraOp Skin Prep Entry 1 Procedure Ureteral Stone Manipulation Laser, Ureteral Stent Insertion Prescribed Yes Pre-Surgical Prep Completed Prep Area Genitalia Intraop Prep Integumentary WDL Assessment WDL Prep Agents Betadine solution Prep by Sara Dent Rn Hair Removal Methods No hair removal performed Last Modified By: Sara Dent Rn 07/30/20 18:34:05 [facility] IntraOp Skin Prep Audit 07/30/20 18:34:05 Reducing System Operator: [id number] Modifier: [id number] <+> 1 Procedure [facility] IntraOp Surgical Procedures Entry 1 Entry 2 [...] Taylor, Carolyn, Rn 07/30/20 20:02:05 07/30/20 20:02:05 [facility] IntraOp Surgical Procedures Audit 07/30/20 20:02:05 Reducing System Operator: [id number] Modifier: [id number] <+> 1 Stop <+> 2 Stop 07/30/20 19:47:35 Reducing System Operator: [id number] Modifier: [id number] <*> Procedure Ureteral Stent Insertion 07/30/20 19:20:00 Reducing System Operator: [id number] Modifier: [id number] <+> 1 Start <+> 2 Start [facility] IntraOp Temp Regulation Devices Entry 1 Temp Regulation Temperature Warm blankets, Room Regulation Device temperature Temperature Upper body Regulation Site Temperature CHIP EVANGELISTA, Regulation Device JAK Applied by Temperature Patient's temperature Regulation Comment monitored by anesthesia provider. Forced air warming device available for use. Last Modified By: Sara Dent Rn 07/30/20 19:19:58 [facility] IntraOp Temp Regulation Devices Audit 07/30/20 19:19:58 Reducing System Operator: [id number] Modifier: [id number] <+> 1 Temperature Regulation Device Applied by [facility] IntraOP Time Out Entry 1 Procedure to [...] Modified By: Sara Dent Rn 07/30/20 19:19:43 [facility] IntraOp X-Ray and Images Entry 1 X-Ray/Imaging [...] DIANN Correct Billing Electronically signed by Jane [facility] Conversion Pipe And Boiler Covers Supervisor Cerner at 06/03/2022 10:53 PM CDT documented in this encounter Plan of Treatment Not on file documented as of this encounter Visit Diagnoses Not on filedocumented in this encounter Care Teams Aquaculture Farm Manager Relationship Specialty Start Date End Date Emily Estrada [address] [place] [phone] PCP - General 05/14/22 06/09/[address] [facility], Provider Not In The System, [place] [address] PCP - General 07/18/24 Lolita Belcher [address], [address] [place] [address] Advanced Registered Nurse Practitioner Primary Care 06/10/24 documented as of this encounter
== END 2024-12-14 23:59 | disposition home or self-care (01) ==
LOC: RAD 12:19
PROVIDERS: PCP Nurse Practitioner Family; Visit Provider Urology
DX: R93.3 Abnormal findings on diagnostic imaging of other parts of digestive tract (principal); N20.0 Calculus of kidney
CPT/HCPCS: 74018